=== PATIENT | female | born 1965 | race Asian ===

== ENCOUNTER 2021-04-14 20:41 | Emergency (ER) | payer BC ==
--- OUTSIDE RECORDS SUMMARY | 2021-04-14 20:48 | XMS REPORT | Continuity of Care Document ---
:1965 Author Organization [facility] t Address [address] [place] [address] Care Team Providers Name Role Phone Unavailable Unavailable Unavailable Problems Condition Condition Condition Status Onset Resolution Last Treating Co mments Source Name Details Category Date Date Treatment Clinician Date Hypertensi Hypertensi Problem Active [facility] - unspecifie unspecifie Me moria d type d type l [facility] Hypokalemi Hypokalemi Problem Active [facility] - [facility] Rash and Rash and Diagnosis Active [facility] nonspecifi nonspecifi [place] [facility] - c skin c skin Memoria eruption eruption l [facility] Thrombocyt Thrombocyt Diagnosis Active [facility] openia openia [facility] Elevated Elevated Problem Active [facility] serum serum [facility] - protein protein Memoria level level l [facility] Elevated Elevated Diagnosis Active [facility] liver liver [facility] - function function Memori a tests tests l [facility]ics Hyperchole Hyperchole Diagnosis Active [facility] sterolemia sterolemia [place] [facility] - Memoria l [facility] Hyperalbum Hyperalbum Problem Active [facility] inemia inemia [facility] - [facility] Abnormal Abnormal Diagnosis Active [facility] laboratory laboratory [place] [facility] - test test Memoria result result l [facility] Elevated Elevated Problem Active [facility] BP without BP without [place] [facility] - diagnosis diagnosis Dawson willa of of l hypertensi hypertensi Ou tpati on on ent Clinics History of History of Diagnosis Active [facility] hypokalemi hypokalemi [place] [facility] - a a [facility] l [facility] Allergies, Adverse Reactions, Alerts This patient has no known allergies or adverse reactions. Medications Ordered Filled Start Stop Current Ordering Indication Dosage Frequency Signature Comments Components Source Medication Medication Date Date Medication? Clinician (SIG) Name Name Alessandro Adamsonmethaso 2019-0 2020- No Miladys [address] [facility] ne ne 3- Millender applicatio Maricruz es - Dipropionat Dipropionat 00:00: 00:00 n to Memoria e e 00 :00 affected l area(s) [facility] HydrOXYzine HydrOXYzine Yes Miladys [address] [facility] HCl HCl 1-09 Millender as needed [facility] - 00:00: fot Memoria 00 itching l [facility] Micardis Micardis Yes Miladys [address] [facility] HCT HCT 6-21 Millender [facility] - 00:00: Memoria 00 l [facility] Keflex Keflex Yes [facility]adys 1 capsule [facility] Amlodipine Amlodipine Yes Miladys [address] [facility] Besylate Besylate Millender [place] kes - [facility] Triamcinolo Triamcinolo Yes Miladys [address] [facility] ne ne Millender applicatio Luke s - Acetonide Acetonide n to Memor ia affected l area [facility] Immunizations Ordered Filled Immunization Date Status Comments Sourc e Immunization Name Name Flucelvax - single Flucelvax - single 2019-12-[address] [facility] - dose syringe dose syringe 00:00:00 [facility] Procedures This patient has no known procedures. Encounters Start End Encounter Admission Attending Care Care Encounter Source Date/Time Date/Time Type Type Clinicians Facility Department ID 2020-05-25 2020-05-25 [facility] [id number] [facility] 10[facility]00:00 10:00:00 [facility] Medicine Medicine Outpati ent Clinics 2020-04-19 2020-04-19 [facility] [id number] [address] 13:25:00 13:25:00 [facility] Medicine Medicine Outpati ent Clinics 2020-01-25 2020-01-25 [facility] [id number] [address] 16:41:00 16:41:00 [facility] Medicine Outpati ent Clinics 2019-12-15 2019-12-15 [facility] [id number] [facility] 09:00:00 09:00:00 t [facility] Medicine Outpati ent Clinics 2019-12-14 2019-12-14 [facility] [id number] [address] 14:36:00 14:36:00 [facility] Medicine Outpati ent Clinics 2018-11-22 2018-11-22 [facility] [id number] 00:21:00 00:21:00 [facility] Medicine Outpati ent Clinics 2018-11-21 2018-11-21 [facility] [id number] [address] 09:45:00 09:45:00 [facility] Medicine Outpati ent Clinics 2018-10-22 2018-10-22 [facility] [id number] [address] 10:17:00 10:17:00 [facility] Medicine Outpati ent Clinics 2018-10-22 2018-10-22 [facility] [id number] [address] 09:00:00 09:00:00 [facility] Medicine Outpati ent Clinics Results This patient has no known results.
--- NOTE | 2021-04-14 21:26 | ER ---
Nurse's Notes [facility] Name: Loulou Treviño Age: 55 yrs Sex: Female : 1965 Arrival Date: 04/14/2021 Time: 20:45 Bed 14 Private MD: Diagnosis: Edema, unspecified Presentation: 04/14 21:01 Chief complaint: Patient states: pt has lost PCP and out of BP/fluid medication, bs2 bilateral leg swelling, +2 edema both legs, pulses gootd. Coronavirus screen: Client denies travel out of the [place] in the last 14 days. At this time, the client does not indicate any symptoms associated with coronavirus-19. Ebola Screen: Patient negative for fever greater than or equal to 101.5 degrees Fahrenheit, and additional compatible Ebola Virus Disease symptoms Patient denies exposure to infectious person. Patient denies travel to an Ebola-affected area in the 21 days before illness onset. No symptoms or risks identified at this time. Initial Sepsis Screen: Does the patient meet any 2 criteria? No. Patient's initial sepsis screen is negative. Does the patient have a suspected source of infection? No. Patient's initial sepsis screen is negative. Risk Assessment: Do you want to hurt yourself or someone else? Patient reports no desire to harm self or others. Onset of symptoms was April 14, 2021. 21:01 Method Of Arrival: Ambulatory bs2 21:01 Acuity: TOPHER 3 bs2 Triage Assessment: 21:03 General: Appears in no apparent distress. comfortable, well groomed, well developed, bs2 well nourished, Behavior is calm, cooperative, appropriate for age. Pain: Denies pain. 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 - Social history:: Smoking status: Patient denies any tobacco usage or history of. - Family history:: not pertinent. - Hospitalizations: : No recent hospitalization is reported. Screenin:06 Abuse screen: Denies threats or abuse. Denies injuries from another. Nutritional bs2 screening: No deficits noted. Tuberculosis screening: No symptoms or risk factors identified. Fall Risk None identified. Assessment: 21:16 General: Appears in no apparent distress. comfortable, well groomed, well developed, bs2 well nourished. Musculoskeletal: Circulation, motion, and sensation intact. Swelling present in lateral aspect of left calf, left lateral ankle, lateral aspect of left foot, left calf, left Achilles, left heel, medial aspect of left calf, left medial ankle, medial aspect of left foot, left [place]oughby, anterior aspect of left ankle and dorsum of left foot. Vital Signs: 21:01 BP 148 / 75; Pulse 95; Resp 16; Temp 97.6(O); Pulse Ox 97% ; Weight 65.77 kg (R); bs2 Height 5 ft. 3 in. (160.02 cm) (R); Pain 0/10; 21:53 BP 116 / 62; Pulse 88; Resp 16; Temp 97.8(O); Pulse Ox 97% ; Pain 0/10; bs2 21:01 Body Mass Index 25.69 (65.77 kg, 160.02 cm) bs2 ED Course: 20:45 Patient arrived in ED. ag3 20:52 Paul Hernandez MD is Attending Physician. rn 21:03 Triage completed. bs2 21:03 Arm band placed on left wrist. bs2 21:06 Patient has correct armband on for positive identification. Bed in low position. Call bs2 light in reach. 21:06 No provider procedures requiring assistance completed. bs2 21:15 Inserted saline lock: 20 gauge in right antecubital area, using aseptic technique. bs2 21:53 IV discontinued, intact, bleeding controlled, No redness/swelling at site. bs2 Administered Medications: 21:15 Drug: Lasix (furosemide) 40 mg Route: IVP; Site: right antecubital; bs2 Outcome: 21:25 Discharge ordered by . rn 21:53 Discharged to home ambulatory. bs2 21:53 Condition: improved 21:53 Discharge instructions given to patient, Instructed on discharge instructions, follow up and referral plans. medication usage, Demonstrated understanding of instructions, follow-up care, medications, Prescriptions given X 2. 21:54 Patient left the ED. bs2 Signatures: Paul Hernandez MD MD rn Blossom Armando ag3 Hollie Allred bs2
--- NOTE | 2021-04-14 21:26 | EDPHYS ---
Physician Documentation [facility] Name: Loulou Treviño Age: 55 yrs Sex: Female : 1965 Arrival Date: 04/14/2021 Time: 20:45 Bed 14 Private MD: ED Physician Paul Hernandez HPI: 04/14 21:17 This 55 yrs old Female presents to ER via Ambulatory with complaints of Leg rn Swelling. 21:17 Pt reports ran out of BP medication, is combination pill with diuretic, has been on it rn for a long time and has problems with edema, has been swelling since not taking medication, no sob, no increase in waist size. No fever. No open wounds. Unable to get in with a doctor until may. No known kidney problems.. Onset: The symptoms/episode began/occurred 2 week(s) ago. Severity of symptoms: At their worst the symptoms were moderate in the emergency department the symptoms are unchanged. The patient has experienced similar episodes in the past. The patient has not recently seen a physician. 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 - Social history:: Smoking status: Patient denies any tobacco usage or history of. - Family history:: not pertinent. - Hospitalizations: : No recent hospitalization is reported. ROS: 21:17 Constitutional: Negative for fever, chills, and weight loss, Eyes: Negative for injury, rn pain, redness, and discharge, Neck: Negative for injury, pain, and swelling, Cardiovascular: Negative for chest pain, palpitations Respiratory: Negative for shortness of breath, cough, wheezing, and pleuritic chest pain, Abdomen/GI: Negative for abdominal pain, nausea, vomiting, diarrhea, and constipation, MS/Extremity: Negative for injury and deformity, + swelling Skin: Negative for injury, rash, and discoloration, Neuro: Negative for headache, weakness, numbness, tingling, and seizure. Exam: 21:17 Constitutional: This is a well developed, well nourished patient who is awake, alert, rn and in no acute distress. Ambulatory to bathroom. Cardiovascular: Regular rate and rhythm. No pulse deficits. Respiratory: Speaking full sentences, unlabored. No increased work of breathing, no retractions or nasal flaring. Skin: Warm, dry with normal turgor. Normal color with no rashes, no lesions, and no evidence of cellulitis. MS/ Extremity: Pulses equal, no cyanosis. Neurovascular intact. Full, normal range of motion. Equal circumference. 2+ pitting edema bilateral lower ext. Vital Signs: 21:01 BP 148 / 75; Pulse 95; Resp 16; Temp 97.6(O); Pulse Ox 97% ; Weight 65.77 kg (R); bs2 Height 5 ft. 3 in. (160.02 cm) (R); Pain 0/10; 21:53 BP 116 / 62; Pulse 88; Resp 16; Temp 97.8(O); Pulse Ox 97% ; Pain 0/10; bs2 21:01 Body Mass Index 25.69 (65.77 kg, 160.02 cm) bs2 MDM: 20:52 Patient medically screened. rn 21:23 Differential Diagnosis edema, dependent edema, noncompliance with medication. Data rn reviewed: vital signs, nurses notes, and as a result, I will discharge patient. Counseling: I had a detailed discussion with the patient and/or guardian regarding: the historical points, exam findings, and any diagnostic results supporting the discharge/admit diagnosis, the need for outpatient follow up, to return to the emergency department if symptoms worsen or persist or if there are any questions or concerns that arise at home. Special discussion: I discussed with the patient/guardian in detail that at this point there is no indication for admission to the hospital. It is understood, however, that if the symptoms persist or worsen the patient needs to return immediately for re-evaluation. Based on the history and exam findings, there is no indication for further emergent testing or inpatient evaluation. I discussed with the patient/guardian the need to see the primary care provider for further evaluation of the symptoms. 04/14 21:00 Order name: IV Start; Complete Time: 21:15 rn Administered Medications: 21:15 Drug: Lasix (furosemide) 40 mg Route: IVP; Site: right antecubital; bs2 Disposition Summary: 04/14/21 21:25 Discharge Ordered Location: Home rn Problem: an ongoing problem rn Symptoms: have improved rn Condition: Stable rn Diagnosis - Edema, unspecified rn Followup: rn - With: Private Physician - When: As needed - Reason: Recheck today's complaints, Re-evaluation by your physician Discharge Instructions: - Discharge Summary Sheet rn - Edema rn - Hypertension, Adult rn Forms: - Medication Reconciliation Form rn - Thank You Letter rn - 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 Ambulatory to bathroom. rn
[2021-04-14] MEDS ORDERED: FUROSEMIDE 40 MG/4 ML VIAL ONE (21:30)
[2021-04-14 22:07] VITALS: O2SAT 97
[2021-04-14 22:09] VITALS: BP 116/62; TEMP 97.8
== END 2021-04-14 21:54 | disposition home or self-care (01) ==
LOC: ER 20:41
DX: R60.9 Edema, unspecified (principal); I10 Essential (primary) hypertension
CPT/HCPCS: 96374; 99283; J1940

== ENCOUNTER 2022-04-26 09:56 | Emergency (ER) | payer BC ==
[2022-04-26] MEDS ORDERED: NA CHLORIDE 0.9% 500 ML ONE ×2 (10:45→13:07)
[2022-04-26 11:58] LABS: Absolute Lymphocytes (CBC) 0.8 K/uL (0.7-4.9); Hematocrit 26.7 % (36.0-45.0); Lymphocytes % 8.4 % (15.3-44.8); MCV 98.3 fL (80-100); MPV 9.8 fL (7.6-11.3); RBC Red Blood Cell Count 2.72 M/uL (3.86-4.86)
[2022-04-26 12:00] LABS: Protime INR 2.29
[2022-04-26 12:11] LABS: Urine Blood 3+ (Negative); Urine Glucose Trace (Negative); Urine Protein 2+ (Negative); Urine pH 8.5 (5.0-7.0)
[2022-04-26 12:20] LABS: Albumin 1.6 g/dL (3.4-5.0); Protein, Total 6.5 g/dL (6.4-8.2)
[2022-04-26 12:22] LABS: Potassium 5.3 mmol/L (3.5-5.1)
[2022-04-26 12:24] LABS: Bilirubin Total 25.9 mg/dL (0.2-1.0)
--- NOTE | 2022-04-26 12:56 | RAD REPORT ---
EXAM DESCRIPTION: CT - Abdomen Pelvis Wo Contrast - 04/26/2022 12:45 pm CLINICAL HISTORY: Abdominal pain. LLQ abdominal pain COMPARISON: No comparisons TECHNIQUE: CT imaging of the abdomen and pelvis was performed without contrast. Solid organ, bowel a nd vascular assessment is limited due to lack of IV and oral contrast. All CT scans are performed using dose optimization technique as appropriate and may include automated exposure control or mA/KV adjustment according to patient size. FINDINGS: The lower lung jean baptiste are clear. The liver demonstrates heterogenous parenchymal appearance. The Spleen, pancreas, adrenal glands and kidneys are within normal limits for a limited non-contrast examination.Probable gallstone in the gal lbladder. There is moderate diffuse colon wall thickening noted. Mild ascites is present in the abdomen and pel vis. Sigmoid diverticulosis coli without diverticulitis. Normal appendix. Large calcified fibroids ar e present in the enlarged uterus. Mild lumbar degenerative changes. IMPRESSION: Moderate thickening of the colon wall is present diffusely compatible with colitis. Mild ascites is present. Probable cholelithiasis. Multiple large calcified fibroids in the uterus. A limited non-contrast examination was performed as detailed.
--- NOTE | 2022-04-26 13:51 | RAD REPORT ---
EXAM DESCRIPTION: US - Abdomen Exam Limited - 04/26/2022 1:42 pm CLINICAL HISTORY: EPIGASTRIC PAIN COMPARISON: Abdomen Pelvis Wo Contrast dated 04/26/2022 FINDINGS: The gallbladder demonstrates sludge dependently layering. Mild gallbladder wall thickening is seen with intramural edema present. The common bile duct is normal measuring 4 mm. The liver demonstrates no findings of intrahepatic biliary dilatation. IMPRESSION: Gallbladder sludge with wall thickening and edema present.
[2022-04-26] MEDS ORDERED: METRONIDAZOLE 500mg IVPB 500 MG/100 ML BAG IV ONE (14:22)
[2022-04-26] MEDS ORDERED: CEFTRIAXONE 1000 MG/VIAL ONE (14:22)
[2022-04-26] MEDS ORDERED: NA CHLORIDE 0.9% 100 ML ONE (14:22)
[2022-04-26] MEDS ORDERED: CEFEPIME 1 GM/VIAL ONE (14:23)
--- NOTE | 2022-04-26 14:35 | ER ---
Nurse's Notes [facility] Name: Loulou Treviño Age: 56 yrs Sex: Female : 1965 Arrival Date: 04/26/2022 Time: 09:58 Bed 4 Private MD: Stephanie Gautam Diagnosis: Hepatorenal failure Presentation: 04/26 10:06 Chief complaint: Patient states: is very weak and gets tired and SOB when she walks, iw friend states she looks jaundiced for past week , pt states her abd swelling up a couple days ago , stopped drinking maybe four weeks ago, was a daily drinker , would drink wine and liquor , pt has no history of liver issues at this point. Coronavirus screen: At this time, the client does not indicate any symptoms associated with coronavirus-19. Ebola Screen: Patient negative for fever greater than or equal to 101.5 degrees Fahrenheit, and additional compatible Ebola Virus Disease symptoms Patient denies exposure to infectious person. Patient denies travel to an Ebola-affected area in the 21 days before illness onset. No symptoms or risks identified at this time. Initial Sepsis Screen: Does the patient meet any 2 criteria? Mean Arterial Pressure (MAP) < 65. Does the patient have a suspected source of infection? No. Patient's initial sepsis screen is negative. Risk Assessment: Do you want to hurt yourself or someone else? Patient reports no desire to harm self or others. Onset of symptoms was April 19, 2022. 10:06 Method Of Arrival: Wheelchair iw 10:06 Acuity: TOPHER 2 iw Historical: - Allergies: 10:10 No Known Allergies; iw - Home Meds: 10:10 telmisrtan/HCTZ 80/25 MG daily for High Blood Pressure [Active]; iw - PMHx: 10:10 Hypertensive disorder; iw - PSHx: 10:10 Tumor removal stomach; iw - Immunization history:: Client reports receiving the 2nd dose of the Covid vaccine. - Social history:: Smoking status: Patient denies any tobacco usage or history of. Screenin:14 Abuse screen: Denies threats or abuse. Nutritional screening: No deficits noted. ll1 Tuberculosis screening: No symptoms or risk factors identified. Fall Risk IV access (20 points). Gait- Weak (10 pts.). Total Santos Fall Scale indicates Low Risk Score (25-44 pts). Fall prevention measures have been instituted. Side Rails Up X 2 Placed close to Nursing Station Frequent Obs/Assesments occuring Family Present and informed to notify staff if they need to leave bedside As available Patient and Family Educated on Fall Prevention Program and strategies. Assessment: 11:07 General: Appears in no apparent distress. Behavior is calm, cooperative. kr3 11:31 General: Behavior is. Pain: Complains of pain in abdomen Pain does not radiate. Pain kr3 currently is 7 out of 10 on a pain scale. Quality of pain is described as aching, Pain began suddenly. GI: Bowel sounds present X 4 quads. Abd is soft Abdomen is tender to palpation in left lower quadrant Reports lower abdominal pain. GI: EENT: Eyes jaundice. Derm: Skin is jaundiced, Decubitus located on sacrum. 12:35 Reassessment: No changes from previously documented assessment. Patient and/or family kr3 updated on plan of care and expected duration. Pain level reassessed. Reassessment:. 14:05 Reassessment: No changes from previously documented assessment. Patient and/or family kr3 updated on plan of care and expected duration. Pain level reassessed. 15:28 Reassessment: No changes from previously documented assessment. Patient and/or family kr3 updated on plan of care and expected duration. Pain level reassessed. 16:30 Reassessment: No changes from previously documented assessment. Patient and/or family ll1 updated on plan of care and expected duration. Pain level reassessed. 17:14 Reassessment: No changes from previously documented assessment. Patient and/or family ll1 updated on plan of care and expected duration. Pain level reassessed. Vital Signs: 10:06 BP 72 / 47; Pulse 77; Resp 16; Temp 97.0; Pulse Ox 92% on R/A; iw 10:19 BP 92 / 68; Pulse 73; Resp 16; Pulse Ox 100% on R/A; iw 11:30 BP 103 / 59; Pulse 72; Resp 16; Pulse Ox 100% on R/A; kr3 12:10 BP 107 / 59; Pulse 79; Resp 16; Pulse Ox 98% on R/A; kr3 12:10 BP 110 / 74; Pulse 78; Resp 16; Pulse Ox 99% on R/A; kr3 14:14 BP 110 / 77; Pulse 73; Resp 16; Temp 97.0(TE); Pulse Ox 100% on R/A; ll1 15:28 BP 110 / 68; Pulse 78; Resp 16; Pulse Ox 99% on R/A; kr3 17:20 BP 115 / 65; Pulse 67; Resp 16; Pulse Ox 100% on R/A; kr3 17:20 BP 111 / 69; Pulse 69; Resp 16; Pulse Ox 100% on R/A; kr3 ED Course: 09:58 Patient arrived in ED. am2 09:59 Stephanie Gautam FNP-C is Private Physician. am2 10:10 Triage completed. iw 10:11 Arm band placed on. iw 10:20 Stephanie Hicks, RN is Primary Nurse. brown 10:20 Gonzalo Chowdhury NP is PHCP. pm1 10:20 Manish Heath MD is Attending Physician. pm1 10:46 Kristin Horta, IMELDA is Primary Nurse. ll1 10:50 Inserted saline lock: 22 gauge in left antecubital area, using aseptic technique. Blood ll1 collected. 10:55 Placed in gown. Bed in low position. Call light in reach. Side rails up X 1. kr3 11:04 CBC with Diff Sent. kr3 11:04 CMP Sent. kr3 11:05 Lipase Sent. kr3 11:46 Lab(s) recollected, by me, sent to lab. jd3 12:46 Abdomen In Process Unspecified. EDMS 13:43 US Abdomen Limited In Process Unspecified. EDMS 14:48 initiated a transfer with Suzanne Castro Rn from the [facility]. eb 15:23 connected the manager logistic and hospitalist collection correspondent for [facility] with Gonzalo meneses for patient transfer consultation. 15:45 administrative approval given by Suzanne Castro Rn/ patient has been accepted to [facility] 15 tower bed 1538/ Dr. Blue has accepted the patient in transfer/ report to be called to [phone]. 16:33 BMP Sent. kr3 16:33 Blood Culture Adult (2) Sent. kr3 17:22 Inserted saline lock: 22 gauge in right antecubital area, using aseptic technique. kr3 17:22 No provider procedures requiring assistance completed. kr3 17:22 Urine Microscopic Only Sent. kr3 17:24 BMP Sent. kr3 17:24 Blood Culture Adult (2) Sent. kr3 17:26 Patient transferred, IV remains in place. 1 Administered Medications: 10:58 Drug: NS 0.9% 500 ml Route: IV; Rate: bolus; Site: left antecubital; kr3 15:02 Follow up: Response: No adverse reaction; IV Status: Completed infusion; IV Intake: kr3 500ml 13:05 Drug: NS 0.9% 500 ml Route: IV; Rate: bolus; Site: left antecubital; kr3 14:25 Follow up: Response: No adverse reaction; IV Status: Completed infusion; IV Intake: kr3 500ml 14:03 CANCELLED (Physician Discretion): Zosyn (piperacillin-tazobactam) 3.375 grams IVPB once pm1 over 60 mins; (mix in NS 100 mL) 14:23 Drug: Cefepime 1 grams Route: IVPB; Rate: 200 ml/hr; Infused Over: 30 mins; Site: left kr antecubital; 15:18 Follow up: Response: No adverse reaction; IV Status: Completed infusion; IV Intake: kr3 100ml 15:16 Drug: NS 0.9% 1000 ml Route: IV; Rate: 100 ml/hr; Site: left antecubital; kr3 17:26 Follow up: IV Status: Infusion continued upon transfer 1 15:18 Drug: Flagyl (metroNIDAZOLE) 500 mg Volume: 100 ml; Route: IVPB; Rate: 200 ml/hr; kr3 Infused Over: 30 mins; Site: left antecubital; 17:06 Follow up: Response: No adverse reaction; IV Status: Completed infusion; IV Intake: ll1 100ml 17:05 Drug: Octreotide 50 mcg Route: IV; Rate: bolus; Site: left antecubital; 1 17:06 Follow up: Response: No adverse reaction; IV Status: Completed infusion; IV Intake: ll1 0.1ml 17:06 Drug: Albumin 25 grams Volume: 100 ml; Route: IVPB; Site: right antecubital; ll1 17:26 Follow up: IV Status: Completed infusion; Infusion continued upon transfer [facility] Medication: 17:15 VIS not applicable for this client. ll1 Intake: 14:25 IV: 500ml; Total: 500ml. kr3 15:02 IV: 500ml; Total: 1000ml. kr3 15:18 IV: 100ml; Total: 1100ml. kr3 17:06 IV: 100ml; Total: 1200ml. ll1 17:06 IV: 0ml; Total: 1200ml. ll1 Outcome: 14:35 ER care complete, transfer ordered by MD. pm1 17:25 Transferred by ground EMS to [facility], Transfer form completed. ll1 X-rays sent w/ patient. 17:25 Condition: stable 17:25 Instructed on the need for transfer. 17:28 Patient left the ED. ll1 Signatures: Dispatcher [employer] EDMS Barbara Bee RN Gonzalo Wise NP [employer] pm1 Rosalia Guzmán amEmmanuel Doll RN RN jd3 Carolyn Koenig Lynsay, RN RN ll1 Stephanie Hicks RN RN ha Reid, Kelley, RN RN kr3 Corrections: (The following items were deleted from the chart) 11:07 11:06 Placed in gown. Bed in low position. Call light in reach. Side rails up X 1. kr3 kr3
--- NOTE | 2022-04-26 14:35 | EDPHYS ---
Physician Documentation [facility] Name: Loulou Treviño Age: 56 yrs Sex: Female : 1965 Arrival Date: 04/26/2022 Time: 09:58 Bed 4 Private MD: Stephanie Gautam ED Physician Manish Heath HPI: 04/26 10:36 This 56 yrs old Female presents to ER via Wheelchair with complaints of General pm1 Weakness, Abdominal Distention. 10:36 The patient presents to the emergency department with weakness of the entire body, pm1 generalized weakness. 10:36 Onset: The symptoms/episode began/occurred 2 week(s) ago. pm1 10:36 Associated signs and symptoms: Pertinent positives: LLQ abdominal pain, Pertinent pm1 negatives: chest pain, shortness of breath. Severity of symptoms: in the emergency department the symptoms are worse. Patient's baseline: Neuro: alert and fully oriented, Motor: no deficits, Ambulation: walks without assistance. Current symptoms: Currently, the patient is not experiencing any symptoms. The patient has not experienced similar symptoms in the past. The patient has been recently seen by a physician: with similar presenting complaints, and apparently given a diagnosis of URI, was given a prescription for antibiotics, azithromycin and tessalon perles by PCP. 56-year-old female presents to the ER with complaints of jaundice, generalized weakness and abdominal distention for 2 weeks. Patient with a history of alcoholism. Daily drinker of vodka approximately 1 quart per day for many years. Patient stopped roughly 4 weeks ago, but has had 1 drink since then. 1 glass of wine yesterday. Patient additionally complaining of shortness of breath with exertion for the same duration of 2 weeks. Negative for nausea and vomiting and diarrhea. Patient with decreased p.o. intake of solid food, but drinking fluids. Positive for soft stools. 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 - Social history:: Smoking status: Patient denies any tobacco usage or history of. ROS: 10:36 Cardiovascular: Negative for chest pain, palpitations, and edema. pm1 10:36 Back: Negative for injury and pain, : Negative for injury, bleeding, discharge, and swelling, MS/Extremity: Negative for injury and deformity, Skin: Negative for injury, rash, and discoloration. 10:36 Constitutional: Positive for poor PO intake, Negative for fever. 10:36 Eyes: Positive for Icterus. 10:36 Respiratory: Positive for shortness of breath, on exertion. Negative for cough. 10:36 Abdomen/GI: Positive for abdominal pain, of the left lower quadrant, Abdominal distention, Negative for nausea, vomiting, and diarrhea. 10:36 Neuro: Positive for Generalized weakness, Negative for headache, numbness, tingling. 10:36 All other systems are negative. Exam: 10:36 Head/Face: Normocephalic, atraumatic. pm1 10:36 Back: No spinal tenderness. No costovertebral tenderness. Full range of motion. 10:36 Constitutional: The patient appears alert, awake, comfortable, non-diaphoretic, well developed, obviously ill. 10:36 Eyes: Periorbital structures: no acute changes, Pupils: no acute changes, Extraocular movements: no acute changes, Sclera: icterus, is present. 10:36 ENT: Exam is negative for acute changes, Mouth: Lips: dry, Oral mucosa: pink and intact, dry. 10:36 Cardiovascular: Exam negative for acute changes, Rate: normal, Rhythm: regular, Pulses: no pulse deficits are appreciated, Heart sounds: normal, normal S1and S2. 10:36 Respiratory: Exam negative for acute changes, the patient does not display signs of respiratory distress, Respirations: no acute changes, Breath sounds: are clear throughout. 10:36 Abdomen/GI: Inspection: distension, that is mild, Palpation: soft, in all quadrants, mild abdominal tenderness, in the left lower quadrant. 10:36 Skin: Appearance: normal except for affected area, Color: jaundiced. 10:36 Neuro: Exam negative for acute changes, Orientation: is normal, Mentation: is normal, Motor: is normal, moves all fours. Vital Signs: 10:06 BP 72 / 47; Pulse 77; Resp 16; Temp 97.0; Pulse Ox 92% on R/A; iw 10:19 BP 92 / 68; Pulse 73; Resp 16; Pulse Ox 100% on R/A; iw 11:30 BP 103 / 59; Pulse 72; Resp 16; Pulse Ox 100% on R/A; kr3 12:10 BP 107 / 59; Pulse 79; Resp 16; Pulse Ox 98% on R/A; kr3 12:10 BP 110 / 74; Pulse 78; Resp 16; Pulse Ox 99% on R/A; kr3 14:14 BP 110 / 77; Pulse 73; Resp 16; Temp 97.0(TE); Pulse Ox 100% on R/A; ll1 15:28 BP 110 / 68; Pulse 78; Resp 16; Pulse Ox 99% on R/A; kr3 17:20 BP 115 / 65; Pulse 67; Resp 16; Pulse Ox 100% on R/A; kr3 17:20 BP 111 / 69; Pulse 69; Resp 16; Pulse Ox 100% on R/A; kr3 MDM: 10:20 Patient medically screened. pm1 14:10 Data reviewed: vital signs. Data interpreted: Pulse oximetry: on room air is 97 %. pm1 Interpretation: normal. 14:32 Counseling: I had a detailed discussion with the patient and/or guardian regarding: the pm1 historical points, exam findings, and any diagnostic results supporting the discharge/admit diagnosis, lab results, radiology results, the need to transfer to another facility, for higher level of care. 15:14 ED course: Meld score 49. pm1 15:36 Physician consultation: And Hospitalist [facility] [employer] Administrator regarding regarding pm1 transfer, patient's condition, and will see patient would like medications started, Blood culture, Repeat BMP, octreotide, and albumin 25 gram Q8. 04/26 10:35 Order name: CBC with Diff; Complete Time: 14:54 pm1 04/26 10:35 Order name: CMP; Complete Time: 12:30 pm1 04/26 10:35 Order name: Lipase; Complete Time: 12:30 pm1 04/26 10:35 Order name: PT-INR; Complete Time: 12:05 pm1 04/26 10:35 Order name: Ptt, Activated; Complete Time: 12:05 pm1 04/26 10:35 Order name: COVID-19 SARS RT PCR (Document "Date of Onset" if Symptomatic); Complete pm1 Time: 12:17 04/26 12:04 Order name: Alcohol Serum/Plasma; Complete Time: 12:30 EDMS 04/26 12:11 Order name: Urine Dipstick-Ancillary; Complete Time: 12:17 EDMS 04/26 12:43 Order name: Abdomen ; Complete Time: 13:09 EDMS 04/26 14:46 Order name: CBC Smear Scan; Complete Time: 14:54 EDMS 04/26 15:30 Order name: Blood Culture Adult (2) pm1 04/26 15:33 Order name: BMP pm1 04/26 16:00 Order name: Urine Microscopic Only pm1 04/26 10:35 Order name: IV Saline Lock; Complete Time: 10:36 pm1 04/26 10:35 Order name: Labs collected and sent; Complete Time: 10:36 pm1 04/26 10:35 Order name: Urine Dipstick-Ancillary (obtain specimen); Complete Time: 12:11 pm1 04/26 11:21 Order name: Labs - recollect needed: recollect all the blood per kaushal; Complete Time: eb 11:46 04/26 12:31 Order name: EKG; Complete Time: 12:32 pm1 04/26 12:31 Order name: EKG - Nurse/Tech; Complete Time: 14:10 pm1 04/26 13:11 Order name: US Abdomen Limited; Complete Time: 13:57 pm1 EC:59 Rate is 69 beats/min. Rhythm is regular, Normal Sinus Rhythm with Occasional PVCs. QRS pm1 [place] is Normal. QRS interval is normal. No Q waves. Clinical impression: Abnormal EKG without significant change. Administered Medications: 10:58 Drug: NS 0.9% 500 ml Route: IV; Rate: bolus; Site: left antecubital; kr3 15:02 Follow up: Response: No adverse reaction; IV Status: Completed infusion; IV Intake: kr3 500ml 13:05 Drug: NS 0.9% 500 ml Route: IV; Rate: bolus; Site: left antecubital; kr3 14:25 Follow up: Response: No adverse reaction; IV Status: Completed infusion; IV Intake: kr3 500ml 14:03 CANCELLED (Physician Discretion): Zosyn (piperacillin-tazobactam) 3.375 grams IVPB once pm1 over 60 mins; (mix in NS 100 mL) 14:23 Drug: Cefepime 1 grams Route: IVPB; Rate: 200 ml/hr; Infused Over: 30 mins; Site: left kr3 antecubital; 15:18 Follow up: Response: No adverse reaction; IV Status: Completed infusion; IV Intake: kr3 100ml 15:16 Drug: NS 0.9% 1000 ml Route: IV; Rate: 100 ml/hr; Site: left antecubital; kr3 17:26 Follow up: IV Status: Infusion continued upon transfer ll1 15:18 Drug: Flagyl (metroNIDAZOLE) 500 mg Volume: 100 ml; Route: IVPB; Rate: 200 ml/hr; kr3 Infused Over: 30 mins; Site: left antecubital; 17:06 Follow up: Response: No adverse reaction; IV Status: Completed infusion; IV Intake: ll1 100ml 17:05 Drug: Octreotide 50 mcg Route: IV; Rate: bolus; Site: left antecubital; 1 17:06 Follow up: Response: No adverse reaction; IV Status: Completed infusion; IV Intake: ll1 0.1ml 17:06 Drug: Albumin 25 grams Volume: 100 ml; Route: IVPB; Site: right antecubital; ll1 17:26 Follow up: IV Status: Completed infusion; Infusion continued upon transfer ll1 Disposition: 18:03 Attestation: The patient's history, exam findings, diagnostics, and a summary of any [facility] interventions or procedures was reviewed in detail with Gonzalo Chowdhury DIRECTOR OF HOME CARE HOSPICE. Disposition Summary: 04/26/22 14:35 Transfer Ordered Transfer Location: [facility] pm1 Reason: Higher level of care pm1 Condition: Stable pm1 Problem: new pm1 Symptoms: have improved pm1 Accepting Physician: Dr. Blue(04/26/22 17:28) ll1 Diagnosis - Hepatorenal failure pm1 Forms: - Medication Reconciliation Form pm1 - SBAR form pm1 Critical care time excluding procedures: 18:26 Critical care time: Bedside Care: 10 minutes, Consultation: 15 minutes, Family pm1 Intervention: 5 minutes. Total time: 30 minutes Signatures: Dispatcher [employer] Barbara Martinez RN RN Gonzalo Chowdhury NP DIRECTOR OF HOME CARE HOSPICE pm1 Carolyn Koenig Lynsay, RN RN ll1 Manish Heath MD MD [id number] Kristin Horta RN RN kr3 Corrections: (The following items were deleted from the chart) 12:43 10:35 Abdomen Pelvis W Con+CT.RAD.BRZ ordered. EDMS EDMS 14:03 14:01 Zosyn (piperacillin-tazobactam) 3.375 grams IVPB once over 60 mins; (mix in NS pm1 100 mL) ordered. pm1 17:06 14:35 pm1 eb 17: 17:06 Dr. Mirza meneses 1
[2022-04-26 14:46] LABS: Blood Morphology Comment NOT SEEN (NOT SEEN); Platelet Estimate DECR; White Blood Cell Scan OK (OK)
[2022-04-26] MEDS ORDERED: NA CHLORIDE 0.9% 1,000 ML ONE (15:13)
[2022-04-26] MEDS ORDERED: ALBUMIN HUMAN 25% 100 ML IV ONE (16:45)
[2022-04-26] MEDS ORDERED: OCTREOTIDE ACETATE 500 MCG/ML ONE (16:45)
[2022-04-26 17:37] VITALS: TEMP 97
[2022-04-26 17:48] VITALS: BP 111/69; O2SAT 100
[2022-04-26 17:58] LABS: Urine Bacteria Loaded /HPF (<20); Urine Mucus 3+ /HPF (None Seen); Urine RBC <5 /HPF (None Seen)
[2022-04-26 18:27] LABS: Potassium 2.7 mmol/L (3.5-5.1)
--- NOTE | 2022-04-28 09:06 | EKG ---
Test Date: 2022-04-26 Test Time: 14:08:57 [employer] Supervisor: JAMES MEASUREMENT RESULTS: Intervals: Rate: 69 [place]: 164 QRSD: 82 QT: 420 QTc: 450 [place]: P: 70 [place]: 164 QRS: 62 T: 235 INTERPRETIVE STATEMENTS: Sinus rhythm with frequent premature ventricular complexes ST & T wave abnormality, consider inferior ischemia ST & T wave abnormality, consider anterior ischemia Abnormal ECG Compared to ECG 10/08/2021 11:36:49 Ventricular premature complex(es) now present ST (T wave) deviation now present Possible ischemia now present T-wave abnormality no longer present Electronically Signed On 04-28-22 09:03:15 CDT by Oneil Hickey
== END 2022-04-26 17:28 | disposition short-term general hospital (02) ==
LOC: ER 09:56
DX: K76.7 Hepatorenal syndrome (principal); R10.32 Left lower quadrant pain; F10.20 Alcohol dependence, uncomplicated; I10 Essential (primary) hypertension; Z20.822 Contact with and (suspected) exposure to COVID-19
CPT/HCPCS: 93005; 87040; 87088; 85025; 87086; 80048; 36415; 80320; 85610; 85730; 83690; 80053; 74176; 76705; 99285; U0003; J2354; P9047; J7040 ×2; J7030; J3490; J0692; 81003; 81015

== ENCOUNTER 2022-10-15 21:39 | Emergency (ER) | payer BC ==
--- OUTSIDE RECORDS SUMMARY | 2022-10-15 22:03 | XMS REPORT | Continuity of Care Document ---
:1965 Author Organization [facility] t Address [address] [place] [address] Care Team Providers Name Role Phone CHEY SHANKAR Primary Care Physician Unavailable Chey Shankar Attending Clinician Unavailable Won Cifuentes Attending Clinician Unavailable Miladys Glasgow Attending Clinician Unavailable Nara Gayle Attending Clinician Unavailable Kaylie Michael RN Attending Clinician Unavailable Mariana Aguilar RN Attending Clinician Unavailable Junior Hendricks MA Attending Clinician Unavailable Deonte SEGURA, Christiano Attending Clinician Unavailable Dino Spence MD Attending Clinician Carlyle Wu NP Attending Clinician [phone] DINO SPENCE Attending Clinician Unavailable Va Allred Attending Clinician Unavailable Magdalena Brady Attending Clinician Unavailable Carolyn Priest Attending Clinician Unavailable Nolvia Kay RN Attending Clinician Unavailable Velia George RN Attending Clinician Unavailable Bryan Aquino LCSW Attending Clinician Unavailable Ludwig Summers MD Attending Clinician [phone] Crow Kelly MD, Aba Attending Clinician [phone] LUDWIG SUMMERS Attending Clinician Unavailable BREN MIRADNA Attending Clinician Unavailable Anup Desai Attending Clinician ANUP DESAI Attending Clinician Unavailable Dino Morton Attending Clinician [place] ABA Attending Clinician Unavailable Jeison SEGURA, Brady Attending Clinician Unavailable Zhane SEGURA, Stephanie Lawson Attending Clinician Unavailable 1, [facility] Room Attending Clinician Unavailable Pavel LOGAN, Candy Mccabe Attending Clinician [phone] CANDY INMAN Attending Clinician Unavailable Stephanie Nguyen MA Attending Clinician Unavailable Emily OCHOA, Yeison Parks Attending Clinician YEISON DIAZ Attending Clinician Unavailable Matilde OCHOA, Karissa Randle Attending Clinician Amos Webber Attending Clinician Unavailable Albert OCHOA, Keith Casillas Attending Clinician [phone] Ayde Davila MD Attending Clinician Lee OCHOA, Stephanie Jean Baptiste Attending Clinician [phone] Lorenzo Paige MD Attending Clinician Colleen OCHOA, Evelio Perea Attending Clinician Jake OCHOA, Annamarie Attending Clinician Cintia Sanchez MD Attending Clinician [phone] Goldy Buck MD Attending Clinician Reny Phelan Attending Clinician Unavailable Kati Gallardo MD Attending Clinician Tomy Casper MD Attending Clinician Curt Karimi MD Attending Clinician Unavailable Bill SEGURA, Jocelin Quintana Attending Clinician Unavailable Ralph OCHOA, Aidan Saldivar Attending Clinician Deann OCHOA, Octavio Colin Attending Clinician Flako Wallace Attending Clinician Shanti Agee Attending Clinician Unavailable Adalid OCHOA, Rock Jenkins Attending Clinician Carlito OCHOA, Deanna Randle Attending Clinician Emiliana OCHOA, Cecilia Nazario Attending Clinician [phone] Lacie OCHOA, Leandro Attending Clinician Unavailable Delilah Rooney Attending Clinician Unavailable Chrissy SEGURA, Davin Ayala Attending Clinician Unavailable Olga Edwards Attending Clinician Yu ARELLANO, Magdalena Pink Attending Clinician Nakul OCHOA, Oneil Falcon Attending Clinician [phone] LUDWIG SUMMERS Admitting Clinician Unavailable YEISON DIAZ Admitting Clinician Unavailable DINO SPENCE Admitting Clinician Unavailable ANNAMARIE HERNANDEZ Admitting Clinician Unavailable Payers Payer Name Policy Type Policy Number Effective Date Expiration Date Feliz kunz [employer] 6 [id number] 2020 [facility] [employer] of 00:00:00 - [facility] Medical Center Problems Condition Condition Condition Status Onset Resolution Last Treating Co mments Source Name Details Category Date Date Treatment Clinician Date Acute Acute Disease Active 2021-[address] pulmonary pulmonary 0-22 Assessusha [facility] embolism, embolism, 00:00: t & Plan: M edical unspecifie unspecifie 00 [facility] d d g of this pulmonary pulmonary note embolism embolism might be type, type, different unspecifie unspecifie from the d whether d whether original. acute cor acute cor She pulmonale pulmonale denies present present shortness of breath. Continue follow up with hematolog y. Continue apixaban as prescribe d. Incisional Incisional Disease Active Last [facility] hernia hernia 07-12 Assessmen Justin following following 00:00: t & Plan: M edical transplant transplant 00 [facility] g of this note might be different from the original. There is concern for incisiona l hernia to the right side of her chevron incision. We will obtain CT without contrast for further evaluatio n. Weakness Weakness Disease Active Last [facility] 00:00: t & Plan: Medical [facility] g of this note might be different from the original. Continue to drink supplemen adarsh shakes- at least 3/day and increase physical activity level as tolerated . She is seen today using a walker in clinic. Immunosupp Immunosupp Disease Active Last [facility] ression ression 8-25 [facility] 00:00: t & Plan: Medical [facility] g of this note might be different from the original. She denies headaches or tremors with her immunosup pression. We will adjust her dose according to her levels. DOMINIQUE (acute DOMINIQUE (acute Disease Active Last [facility]) 00:00: t & Plan: Medic al [facility] g of this note might be different from the original. She remains on HD at this time. She is making increasin g amounts of urine. [id number] Elevated Problem Active Comm on liver Spirit function - [facility] tests [facility] [id number] Elevated Problem Active Commo n serum Spirit protein - [facility] level [facility] [id number] History of Problem Active Co mmon hypokalemi [facility] [id number] Intrinsic Problem Active Comm on eczema [facility] [id number] Hyperalbum Problem Active Co mmon inemia [facility] [id number] Hyperchole Problem Active Com mon sterolemia [facility] [id number] Thrombocyt Problem Active Co mmon openia [facility] [id number] End stage Problem Active Comm on renal Spirit disease [facility] [id number] Advanced Problem Active Comm on cirrhosis [facility] of liver [facility] [id number] Chronic Problem Active Comm on fatigue, Spirit unspecifie - [facility] d [facility] Acute Acute Disease Active [facility] renal renal [facility] failure on failure on Me dical dialysis dialysis Center Cirrhosis Cirrhosis Disease Active [facility] of liver [facility] with with Medical ascites, ascites, Center unspecifie unspecifie d hepatic d hepatic cirrhosis cirrhosis type type s/p OLT s/p OLT Disease Active Last [facility] (05/16, (05/16, Dr. [place]) t & Plan: [facility] g of this note might be different from the original. She is s/p OLT in May 2022. She is doing well with no evidence of recurrent disease. Acute Acute Disease Active [facility] St respirator respirator [place] kes y y Medical insufficie insufficie Ce nter ncy ncy Primary Primary Disease Active Last [facility] hypertensi hypertensi [place] on on t & Plan: [facility] g of this note might be different from the original. Blood pressures are stable on current therapy. Acute Acute Disease Active [facility] St blood loss blood loss [place] [facility] anemia anemia [facility] Coagulopat Coagulopat Disease Active [facility] ESRD on ESRD on Disease Active Last [facility] St hemodialys hemodialys [place] is is t & Plan: [facility] g of this note might be different from the original. End stage renal- still requires dialysis 3 times per week. She states that she has been urinating 2-3 times per day. TDC still clean, dry and intact. Allergies, Adverse Reactions, Alerts Allergy Allergy Status Severity Reaction(s) Onset Inactive Treating Comm ents Source Name Type Date Date Clinician NO KNOWN Allergy Active [facility] Family History Family Member Diagnosis Comments Start Date Stop Date Source Natural father Alcohol abuse [facility] Natural father Hypertension [facility] Maternal aunt Cancer [facility] Maternal grandmother Arthritis [facility] Maternal uncle Cancer [facility] Natural mother Hypertension [facility] Social History Social Habit Start Date Stop Date Quantity Comments Source History of [facility] - Tobacco Use [facility] Alcohol intake 2022-08-30 2022-08-30 [facility] 00:00:00 of alcohol [facility] (finding) Tobacco use and 2022-04-26 2022-04-26 Never used [facility] exposure 00:00:00 00:00:00 Medical Center Sex [birth year] [facility] 00:00:00 00:00:00 Medical Center Smoking Status Start Date Stop Date Source Never smoker [facility] Medications Ordered Filled Start Stop Current Ordering Indication Dosage Frequency Signature Comments Components Source Medication Medication Date Date Medication? Clinician (SIG) Name Name sulfamethox 2021-10 Yes 160mg{t Q.[id number] Take [address] azole-trime 2-16 rimetho [id number] tablet [facility] thoprim 00:00: prim} 3W (160 mg of Med ical (BACTRIM 00 trimethopr Cente r DS) 800-160 im total) mg per by mouth 3 tablet (three) times a week I. furosemide 2021-10- No 40mg QD Take [address] (LASIX) 40 2-15 12-15 by mouth Luke s MG tablet 09:03: 00:00 daily . Medi álvaro 24 :00 Center pantoprazol 2021-10 Yes 40mg QD Take [address] [facility] e 2-15 by mouth [facility]ukes (PROTONIX) 09:02: daily. Medic al 40 MG 49 Center tablet magnesium 2021-10 Yes 400mg Q.5D Take [address] oxide 2-15 mg by [facility]ukes (MAG-OX) 09:02: mouth 2 Medica l 400 mg 49 (two) Center (241.3 mg times magnesium) daily. tablet midodrine 2021-10 Yes 10mg Q.[id number] Take [address] (PROAMATINE 2-15 [id number] by mouth 3 [facility]ukes ) 10 MG 09:02: 3W (three) Medical tablet 48 times a Center week I. predniSONE 2021-10 Yes 12.5mg QD Take 2.[address] (DELTASONE) 2-12 tablets [facility] 5 MG tablet 00:00: (12.5 mg Me dical 00 total) by Center mouth daily. apixaban 2021-10- Yes 5mg Q.5D Take [address] (ELIQUIS) 5 1-23 11-23 tablet (5 [place] kes mg Tab 00:00: 23:59 mg total) Medic al tablet 00 :00 by mouth 2 Center (two) times daily. predniSONE 2021-10 No 15mg QD Take [address] (DELTASONE) 1-14 12-12 tablets Luke s 5 MG tablet 00:00: 00:00 (15 mg Med ical 00 :00 total) by Center mouth daily. valGANciclo 2021-10 No 450mg Q.[id number] Take [address] vir 0-24 10-24 [id number] mg by [facility] (VALCYTE) 11:50: 00:00 3W mouth 3 Medi álvaro 450 mg 16 :00 (three) Center tablet times a week MON/WED/FR I. tacrolimus 2021-10 Yes 6mg Q.5D Take 6 [facility] (PROGRAF) 1 0-24 capsules Luke s MG capsule 00:00: (6 mg Medica l 00 total) by Center mouth 2 (two) times daily. sulfamethox 2021-10 No 160mg{t Q.5D Take [address] azole-trime 0-24 12-15 rimetho tablet [place] kes thoprim 00:00: 00:00 prim} (160 mg of Me dical (BACTRIM 00 :00 trimethopr Cente r DS) 800-160 im total) mg per by mouth 2 tablet (two) times daily. nystatin 2021-10 No [id number] Q.25D Take [address] (MYCOSTATIN 0-24 12-15 (500,000 [place] es ) 100,000 00:00: 00:00 Units Medica l unit/mL 00 :00 total) by Center suspension mouth 4 (four) times daily. apixaban 2021-10 No 5mg Q.5D Take [address] (ELIQUIS) 5 0-24 11-23 tablet (5 [place] kes mg Tab 00:00: 00:00 mg total) Medic al tablet 00 :00 by mouth 2 Center (two) times daily Take 10 mg bid x 3 days. Then 5 mg bid.. predniSONE 2021-10 No 17.5mg QD Take 3.[address] (DELTASONE) 0-24 11-14 tablets Luke s 5 MG tablet 00:00: 00:00 (17.5 mg M edical 00 :00 total) by Center mouth daily. acetaminoph 2021-10 No 1{tbl} Take [address] en-codeine 0-24 11-03 tablet by Mar[place] es (Tylenol-Co 00:00: 23:59 mouth Medi álvaro deine #3) 00 :00 every 6 Center 300-30 mg (six) per tablet hours as needed for up to 10 days. Max Daily Amount: 4 tablets tacrolimus 2021- No 7mg Q.5D Take [address] (PROGRAF) 1 07-12 by mouth 2 L ukes MG capsule 09:07: 00:00 (two) Medic al 52 :00 times Center daily. tacrolimus 2021-0 2021- No 7mg Q.5D Take [address] (PROGRAF) 07-12 by mouth 2 L ukes MG capsule 09:07: 00:00 (two) Medic al 52 :00 times Center daily. pantoprazol Yes 40mg QD Take [address] [facility] e 07-12 by mouth [facility] (PROTONIX) 09:06: daily. Medic al 40 MG 34 Center tablet furosemide Yes 40mg QD Take [address] (LASIX) 40 07-12 by mouth [facility] MG tablet 09:06: daily . Medic al 34 Center valGANciclo Yes 450mg Q.[id number] Take [address] vir 07-12 [id number] mg by [facility] (VALCYTE) 09:06: 3W mouth 3 Medic al 450 mg 34 (three) Center tablet times a week SAT/SAT/ I. magnesium Yes 400mg Q.5D Take [address] oxide - mg by [facility]ukes (MAG-OX) 09:06: mouth 2 Medica l 400 mg 34 (two) Center (241.3 mg times magnesium) daily. tablet tacrolimus Yes Take 6mg [facility] (PROGRAF) 07-12 in the AM [place] [facility] MG capsule 00:00: and 7mg in M edical 00 the PM.. Center tacrolimus 2021- No Take 6mg [facility] (PROGRAF) 1 07-12 10-24 in the AM [place] k[facility] MG capsule 00:00: 00:00 and 7mg in Medical 00 :00 the PM.. Center sodium 2021-2021- No 250mg Q.25D Take [address] phosphates- 07-05 tablet [facility] potassium 00:00: 23:59 (250 mg Medi álvaro phosphate 00 :00 total) by Eli quintana (K-PHOS mouth 4 NEUTRAL) (four) 250 mg Tab times tablet daily for 3 days. sodium 2021- No 250mg Q.25D Take [address] phosphates- 07-05- tablet [facility] potassium 00:00: 23:59 (250 mg Medi álvaro phosphate 00 :00 total) by Eli quintana (K-PHOS mouth 4 NEUTRAL) (four) 250 mg Tab times tablet daily for 3 days. predniSONE Yes 17.5mg QD Take 3.[address] (DELTASONE) - tablets [facility] 5 MG tablet 00:00: (17.5 mg Me dical 00 total) by Center mouth daily. predniSONE 2021- No 17.5mg QD Take 3.[address] (DELTASONE) 06-21 10-24 tablets Luke s 5 MG tablet 00:00: 00:00 (17.5 mg M edical 00 :00 total) by Center mouth daily. linezolid 2021- No 600mg Q.5D Take [address] (ZYVOX) 600 06-15 tablet [facility] mg tablet 00:00: 23:59 (600 mg Medi álvaro 00 :00 total) by Center mouth 2 (two) times daily for 10 days. linezolid 2021- No 600mg Q.5D Take [address] (ZYVOX) 600 06-15- tablet [facility] mg tablet 00:00: 23:59 (600 mg Medi álvaro 00 :00 total) by Center mouth 2 (two) times daily for 10 days. furosemide 2021- No 40mg Q.5D Take [address] [facility] (Lasix) 40 06-14 tablet (40 [place] kes MG tablet 00:00: 00:00 mg total) Me dical 00 :00 by mouth 2 Center (two) times daily. furosemide 2021-2021- No 40mg Q.5D Take [address] (Lasix) 40 06-14- tablet (40 [place] kes MG tablet 00:00: 00:00 mg total) Me dical 00 :00 by mouth 2 Center (two) times daily. predniSONE 2021- No 20mg QD Take [address] (DELTASONE) 06-05- tablets Luke s 5 MG tablet 00:00: 00:00 (20 mg Med ical 00 :00 total) by Center mouth daily. predniSONE 2021- No 20mg QD Take [address] (DELTASONE) 06-05 tablets Luke s 5 MG tablet 00:00: 00:00 (20 mg Med ical 00 :00 total) by Center mouth daily. nystatin Yes [id number] Q.25D Take [address] (MYCOSTATIN 06-04 (500,000 Luke s ) 100,000 00:00: Units Medical unit/mL 00 total) by Center suspension mouth 4 (four) times daily. insulin Yes Before [facility] aspart 06-04 [id number] [facility] U-100 00:00: 00 2 Medical (NovoLOG) 00 -3 Cent er 100 unit/mL 50 4 injection -2 00 6 [id number] 50 7 units> 351 8 units. insulin Yes Before [facility] aspart 8-22 [id number] [facility] U-100 00:00: 00 2 Medical (NovoLOG) 00 [id number] Cent er 100 unit/mL 50 4 injection -9 00 6 [id number] 50 7 units> 351 8 units. calcium 2022- No 1{tbl} Take 1 [facility] carbonate-v 06-04 tablet by [place] kes itamin D3 00:00: 23:59 mouth 2 Medi álvaro (OSCAL-D) 00 :00 (two) Center 500 times mg(1,250mg) daily with -200 unit breakfast per tablet and dinner. ursodioL 2022- No 300mg Q.5D Take 1 [facility] (ACTIGALL) 06-04 capsule [facility] 300 mg 00:00: 23:59 (300 mg Medical capsule 00 :00 total) by Center mouth 2 (two) times daily. calcium 2022- No 1{tbl} Take 1 [facility] carbonate-v 06-04 tablet by [place] kes itamin D3 00:00: 23:59 mouth 2 Medi álvaro (OSCAL-D) 00 :00 (two) Center 500 times mg(1,250mg) daily with -200 unit breakfast per tablet and dinner. ursodioL 2022- No 300mg Q.5D Take 1 [facility] (ACTIGALL) 06-04 capsule [facility] 300 mg 00:00: 23:59 (300 mg Medical capsule 00 :00 total) by Center mouth 2 (two) times daily. nystatin 2021- No [id number] Q.25D Take [address] (MYCOSTATIN 06-0424 (500,000 [place] es ) 100,000 00:00: 00:00 Units Medica l unit/mL 00 :00 total) by Center suspension mouth 4 (four) times daily. magnesium 2021- No 400mg Q.[id number] Take [address] oxide 06-04 [id number] tablet [facility] (MAG-OX) 00:00: 00:00 3D (400 mg Medic al 400 mg 00 :00 total) by Center (241.3 mg mouth 3 magnesium) (three) tablet times daily. magnesium 2021- No 400mg Q.[id number] Take [address] oxide 06-04 [id number] tablet [facility] (MAG-OX) 00:00: 00:00 3D (400 mg Medic al 400 mg 00 :00 total) by Center (241.3 mg mouth 3 magnesium) (three) tablet times daily. tacrolimus 2021- No 6mg Q.5D Take [address] (PROGRAF) 1 06-04 capsules [place] es MG capsule 00:00: 00:00 (6 mg Medic al 00 :00 total) by Center mouth 2 (two) times daily. valGANciclo 2021- No 450mg Take [address] vir 06-04 tablet [facility] (VALCYTE) 00:00: 00:00 (450 mg Medi álvaro 450 mg 00 :00 total) by Center tablet mouth every other day. furosemide 2021-2021- No 40mg QD Take [address] (LASIX) 40 06-04 tablet (40 [place] kes MG tablet 00:00: 00:00 mg total) Me dical 00 :00 by mouth Center daily. tacrolimus 2021-0 2021- No 6mg Q.5D Take [address] (PROGRAF) 1 06-04 capsules [place] es MG capsule 00:00: 00:00 (6 mg Medic al 00 :00 total) by Center mouth 2 (two) times daily. valGANciclo 2021- No 450mg Take [address] vir 06-04 tablet [facility] (VALCYTE) 00:00: 00:00 (450 mg Medi álvaro 450 mg 00 :00 total) by Center tablet mouth every other day. furosemide 2021- No 40mg QD Take [address] (LASIX) 40 06-04 tablet (40 [place] kes MG tablet 00:00: 00:00 mg total) Me dical 00 :00 by mouth Center daily. sulfamethox 2021- No 160mg{t Q.[id number] Take [address] azole-trime 06-04 rimetho [id number] tablet [facility] thoprim 00:00: 00:00 prim} 3W (160 mg of Me dical (BACTRIM 00 :00 trimethopr Cente r DS) 800-160 im total) mg per by mouth 3 tablet (three) times a week SAT/SAT/ I. famotidine 2021- No 20mg QD Take [address] (PEPCID) 20 06-04 tablet (20 L ukes MG tablet 00:00: 00:00 mg total) Me dical 00 :00 by mouth Center daily. acetaminoph No 1{tbl} Take [address] en-codeine 06-04 tablet by [place] es (Tylenol-Co 00:00: 23:59 mouth Medi álvaro deine #3) 00 :00 every 6 Center 300-30 mg (six) per tablet hours as needed for up to 10 days. Max Daily Amount: 4 tablets sulfamethox 2021- No 160mg{t Q.[id number] Take [address] azole-trime 06-04 rimetho [id number] tablet [facility] thoprim 00:00: 00:00 prim} 3W (160 mg of Me dical (BACTRIM 00 :00 trimethopr Cente r DS) 800-160 im total) mg per by mouth 3 tablet (three) times a week SAT/SAT/ I. famotidine 2021- No 20mg QD Take [address] (PEPCID) 20 06-04 tablet (20 L ukes MG tablet 00:00: 00:00 mg total) Me dical 00 :00 by mouth Center daily. acetaminoph 2021- No 1{tbl} Take [address] en-codeine 06-04 tablet by Maricruz petersen (Tylenol-Co 00:00: 23:59 mouth Medi álvaro deine #3) 00 :00 every 6 Center 300-30 mg (six) per tablet hours as needed for up to 10 days. Max Daily Amount: 4 tablets Benzonatate Benzonatate 2021- No 1{capsu TID Benzonatat 100 MG 100 MG 04-12 le_as_n e 100 MG 00:00: 00:00 eeded} 00 :00 Benzonatate Benzonatate 2021- No 1{capsu TID Benzonatat 100 MG 100 MG 04-12 le_as_n e 100 MG 00:00: 00:00 eeded} 00 :00 Benzonatate Benzonatate 2021- No 1{capsu TID Benzonatat 100 MG 100 MG 04-12 le_as_n e 100 MG 00:00: 00:00 eeded} 00 :00 Azithromyci Azithromyci 2021- No QD Azithromyc n 250 MG n 250 MG 04-12 in 250 MG 00:00: 00:00 00 :00 Betamethaso Betamethaso 0 2019- No Miladys 1 Common ne ne 12-14 [place] applicatio Spi rit Dipropionat Dipropionat 00:00: 00:00 n to - [facility] e e 00 :[address] area(s) [facility] HydrOXYzine HydrOXYzine Yes Miladys 1 tablet Common HCl HCl 10-22 Mill[place] as needed Spiri t 00:00: fot - [facility]I 00 itching [facility] Micardis Micardis Yes Miladys 1 tablet Common HCT HCT 6- [facility] Spirit 00:00: - [facility]I 00 [facility] Telmisartan Telmisartan No QD Telmisarta -HCTZ 80-25 -HCTZ 80-25 n-HCTZ MG MG 80-25 MG amLODIPine amLODIPine No 1{table QD amLODIPine Besylate 5 Besylate 5 t} Besylate 5 MG MG MG Telmisartan Telmisartan No QD Telmisarta -HCTZ 80-25 -HCTZ 80-25 n-HCTZ MG MG 80-25 MG amLODIPine amLODIPine No 1{table QD amLODIPine Besylate 5 Besylate 5 t} Besylate 5 MG MG MG amLODIPine amLODIPine No 1{table QD amLODIPine Besylate 5 Besylate 5 t} Besylate 5 MG MG MG Telmisartan Telmisartan No QD Telmisarta -HCTZ 80-25 -HCTZ 80-25 n-HCTZ MG MG 80-25 MG amLODIPine amLODIPine No 1{table QD amLODIPine Besylate 5 Besylate 5 t} Besylate 5 MG MG MG Telmisartan Telmisartan No QD Telmisarta -HCTZ 80-25 -HCTZ 80-25 n-HCTZ MG MG 80-25 MG Keflex Keflex Yes Miladys 1 capsule Commo n [facility] Spirit [facility] Amlodipine Amlodipine Yes Miladys 1 tablet Common Besylate Besylate [facility] Sp viki - CHI [facility] Triamcinolo Triamcinolo Yes Miladys 1 Common ne ne Millender applicatio Spir it Acetonide Acetonide n to - CHI affected [facility] Telmisartan Telmisartan No QD Telmisarta -HCTZ 80-25 -HCTZ 80-25 n-HCTZ MG MG 80-25 MG amLODIPine amLODIPine No 1{table QD amLODIPine Besylate 5 Besylate 5 t} Besylate 5 MG MG MG amLODIPine amLODIPine No 1{table QD amLODIPine Besylate 5 Besylate 5 t} Besylate 5 MG MG MG Telmisartan Telmisartan No QD Telmisarta -HCTZ 80-25 -HCTZ 80-25 n-HCTZ MG MG 80-25 MG Immunizations Ordered Immunization Filled Immunization Date Status Commen ts Source Name Name Hepatitis B Adult IM 2022-05-[address] [facility] 00:00[facility]00 [facility]19 Vaccine 2022-05-[address] [facility] MRNA (PF) 12yr+ 00:00:00 Medical C enter (Pfizer/BioNTech)(IM M601) Hepatitis B Adult 2022-05-[address] [facility] 00:00:00 [facility]19 Vaccine 2022-05-[address] [facility] MRNA (PF) 12yr+ 00:00:00 Medical C enter (Pfizer/BioNTech)(IM [id number]) Flucelvax - single Flucelvax - single 2019-12-15 Completed [facility] dose syringe dose syringe 16:03:00 - [facility] Flucelvax - single Flucelvax - single 2019-12-15 Completed [facility] dose syringe dose syringe 16:03:00 - [facility] Flucelvax - single Flucelvax - single 2019-12-15 Completed [facility] dose syringe dose syringe 16:03:00 - [facility] Flucelvax - single Flucelvax - single 2019-12-15 Completed [facility] dose syringe dose syringe 16:03:00 - [facility] Flucelvax - single Flucelvax - single 2019-12-15 Completed [facility] dose syringe dose syringe 16:03:00 - [facility] Flucelvax - single Flucelvax - single 2019-12-15 Completed [facility] dose syringe dose syringe 16:03:00 - [facility] Flucelvax - single Flucelvax - single 2019-12-15 Completed [facility] dose syringe dose syringe 00:00:00 - [facility] Influenza Antibiotic 2019-12-[address] [facility] Free PF IM ([id number]) 00:00:00 [facility] Influenza Antibiotic 2019-12-[address] [facility] Free PF IM ([id number]) 00:00:00 [facility] Vital Signs Vital Name Observation Time Observation Value Comments Source WEIGHT 2022-08-06 12:41:00 45.8 kg WEIGHT 2022-08-06 04:00:00 47.265 kg WEIGHT 2022-08-06 12:41:00 45.8 kg WEIGHT 2022-08-06 04:00:00 47.265 kg WEIGHT 2022-08-06 12:41:00 45.8 kg WEIGHT 2022-08-06 04:00:00 47.265 kg WEIGHT 2022-06-04 19:30:00 55.3 kg WEIGHT 2022-06-03 08:15:00 57.289 kg WEIGHT 2022-06-01 18:15:00 60.8 kg WEIGHT 2022-06-01 03:31:00 58.832 kg WEIGHT 2022-05-30 11:45:00 63 kg WEIGHT 2022-05-28 05:00:00 56.972 kg WEIGHT 2022-05-25 18:10:00 56.4 kg WEIGHT 2022-05-25 03:20:00 59.875 kg WEIGHT 2022-05-23 13:45:00 62.4 kg HEIGHT 2022-05-18 08:00:00 160 cm WEIGHT 2022-05-15 12:30:00 60.5 kg WEIGHT 2022-05-11 18:00:00 62.5 kg WEIGHT 2022-05-11 14:15:00 64.5 kg WEIGHT 2022-05-07 23:00:00 61.5 kg HEIGHT 2022-05-05 09:56:00 160 cm WEIGHT 2022-05-05 09:56:00 58.514 kg WEIGHT 2022-05-04 23:23:00 54.9 kg WEIGHT 2022-05-04 19:52:00 57 kg WEIGHT 2022-05-02 18:30:00 57.5 kg WEIGHT 2022-05-02 13:40:00 58.5 kg HEIGHT 2022-04-30 11:50:00 160 cm WEIGHT 2022-04-30 11:50:00 58.514 kg WEIGHT 2022-04-28 15:00:00 58.8 kg WEIGHT 2022-04-27 20:30:00 58.5 kg HEIGHT 2022-04-26 19:30:00 160 cm WEIGHT 2022-04-26 19:30:00 58.514 kg WEIGHT 2022-06-04 19:30:00 55.3 kg WEIGHT 2022-06-03 08:15:00 57.289 kg WEIGHT 2022-06-01 18:15:00 60.8 kg WEIGHT 2022-06-01 03:31:00 58.832 kg WEIGHT 2022-05-30 11:45:00 63 kg WEIGHT 2022-05-28 05:00:00 56.972 kg WEIGHT 2022-05-25 18:10:00 56.4 kg WEIGHT 2022-05-25 03:20:00 59.875 kg WEIGHT 2022-05-23 13:45:00 62.4 kg HEIGHT 2022-05-18 08:00:00 160 cm WEIGHT 2022-05-15 12:30:00 60.5 kg WEIGHT 2022-05-11 18:00:00 62.5 kg WEIGHT 2022-05-11 14:15:00 64.5 kg WEIGHT 2022-05-07 23:00:00 61.5 kg HEIGHT 2022-05-05 09:56:00 160 cm WEIGHT 2022-05-05 09:56:00 58.514 kg WEIGHT 2022-05-04 23:23:00 54.9 kg WEIGHT 2022-05-04 19:52:00 57 kg WEIGHT 2022-05-02 18:30:00 57.5 kg WEIGHT 2022-05-02 13:40:00 58.5 kg HEIGHT 2022-04-30 11:50:00 160 cm WEIGHT 2022-04-30 11:50:00 58.514 kg WEIGHT 2022-04-28 15:00:00 58.8 kg WEIGHT 2022-04-27 20:30:00 58.5 kg HEIGHT 2022-04-26 19:30:00 160 cm WEIGHT 2022-04-26 19:30:00 58.514 kg WEIGHT 2022-06-04 19:30:00 55.3 kg WEIGHT 2022-06-03 08:15:00 57.289 kg WEIGHT 2022-06-01 18:15:00 60.8 kg WEIGHT 2022-06-01 03:31:00 58.832 kg WEIGHT 2022-05-30 11:45:00 63 kg WEIGHT 2022-05-28 05:00:00 56.972 kg WEIGHT 2022-05-25 18:10:00 56.4 kg WEIGHT 2022-05-25 03:20:00 59.875 kg WEIGHT 2022-05-23 13:45:00 62.4 kg HEIGHT 2022-05-18 08:00:00 160 cm WEIGHT 2022-05-15 12:30:00 60.5 kg WEIGHT 2022-05-11 18:00:00 62.5 kg WEIGHT 2022-05-11 14:15:00 64.5 kg WEIGHT 2022-05-07 23:00:00 61.5 kg HEIGHT 2022-05-05 09:56:00 160 cm WEIGHT 2022-05-05 09:56:00 58.514 kg WEIGHT 2022-05-04 23:23:00 54.9 kg WEIGHT 2022-05-04 19:52:00 57 kg WEIGHT 2022-05-02 18:30:00 57.5 kg WEIGHT 2022-05-02 13:40:00 58.5 kg HEIGHT 2022-04-30 11:50:00 160 cm WEIGHT 2022-04-30 11:50:00 58.514 kg WEIGHT 2022-04-28 15:00:00 58.8 kg WEIGHT 2022-04-27 20:30:00 58.5 kg HEIGHT 2022-04-26 19:30:00 160 cm WEIGHT 2022-04-26 19:30:00 58.514 kg height 2022-04-12 15:20:00 63.00 [in_i] [facility] weight 2022-04-12 15:20:00 143 [lb_av] [facility] bmi 2022-04-12 15:20:00 25.33 kg/m2 [facility] height 2021-06-29 11:00:00 63.00 [in_i] [facility] weight 2021-06-29 11:00:00 143.2 [lb_av] [facility] temperature 2021-06-29 11:00:00 97.9 [degF] [facility] bmi 2021-06-29 11:00:00 25.36 kg/m2 [facility] oximetry 2021-06-29 11:00:00 98 % [facility] respiratory rate 2021-06-29 11:00:00 18 /min [facility] blood pressure 2021-06-29 11:00:00 146 mm[Hg] [facility] systolic [facility] blood pressure 2021-06-29 11:00:00 68 mm[Hg] [facility] diastolic [facility] Systolic blood 2022-09-27 08:22:00 108 mm[Hg] [facility] Diastolic blood 2022-09-27 08:22:00 74 mm[Hg] [facility] Heart rate 2022-09-27 08:22:00 83 /min [facility] Body temperature 2022-09-27 08:22:00 36.83 Renea [facility] Respiratory rate 2022-09-27 08:22:00 18 /min [facility] Body height 2022-09-27 08:22:00 160 cm [facility] Body weight 2022-09-27 08:22:00 49.17 kg [facility] BMI 2022-09-27 08:22:00 19.20 kg/m2 [facility] Oxygen saturation in 2022-09-27 08:22:00 100 /min [facility] Arterial blood by Medical [facility]ter Pulse oximetry Systolic blood 2022-07-12 07:48:00 137 mm[Hg] [facility] Diastolic blood 2022-07-12 07:48:00 85 mm[Hg] [facility] Heart rate 2022-07-12 07:48:00 77 /min [facility] Body temperature 2022-07-12 07:48:00 36.67 Renea [facility] Respiratory rate 2022-07-12 07:48:00 18 /min [facility] Body height 2022-07-12 07:48:00 160 cm [facility] Body weight 2022-07-12 07:48:00 47.265 kg [facility] BMI 2022-07-12 07:48:00 18.46 kg/m2 [facility] Oxygen saturation in 2022-07-12 07:48:00 100 /min [facility] Arterial blood by Medical [facility] Pulse oximetry Procedures Procedure Date / Time Performing Source Performed Clinician BILIRUBIN, DIRECT 2022-09-27 [address]ino Spence Alan [facility] 07:10:00 [facility] COMPREHENSIVE METABOLIC PANEL 2022-09-27 Dino Spence Alan [facility] 07:10:00 [facility] CBC W/PLT COUNT & AUTO 2022-09-[address] [facility] DIFFERENTIAL 07:10:00 [facility] MAGNESIUM 2022-09-[address] [facility] 07:10:00 [facility] PHOSPHORUS 2022-09-27 Dino Spence Alan [facility] 07:10:00 [facility] TACROLIMUS LEVEL 2022-09-[address] [facility] 07:10:00 [facility] HLA TYPING CI 2022-09-27 Mikhail, Bhamidipati [facility] 07:10:00 [facility] HLA TYPING CII 2022-09-27 Mikhail, Bhamidipati [facility] 07:10:00 [facility] FLOW PRA CLASS I WITH REFLEX TO 2022-09-27 Mikhail, Bhamidip ati [facility] ANTIBODY SPECIFICITY 07:10:[address] [facility] [address] FLOW PRA CLASS II WITH REFLEX TO 2022-09-27 Mikhail, Bhamidi dede [facility] ANTIBODY SPECIFICITY 07:10:[address] [facility] [address] AB SPECIFICITY CLASS I 2022-09-27 Mikhail[facility]ipati [facility] 07:10:00 [facility] AB SPECIFICITY CLASS II 2022-09-27 Mikhail, Bhamidipati [facility] 07:10:00 [facility] CBC W/PLT COUNT & AUTO 2022-09-[address] [facility] DIFFERENTIAL 07:10:00 [facility] APTT 2022-08-[address] [facility] 07:07:00 [facility] CBC W/PLT COUNT & AUTO 2022-08-[address] [facility] DIFFERENTIAL 07:07:00 [facility] COMPREHENSIVE METABOLIC PANEL 2022-08-30 Aparna Pride [facility] 07:07:00 [facility] MAGNESIUM 2022-08-[address] [facility] 07:07:00 [facility] PHOSPHORUS 2022-08-[address] [facility] 07:07:00 [facility] PROTHROMBIN TIME/INR 2022-08-[address] [facility] 07:07:00 [facility] TACROLIMUS LEVEL 2022-08-[address] [facility] 07:07:00 [facility] BILIRUBIN, DIRECT 2022-08-[address] [facility] 07:07:00 [facility] CBC W/PLT COUNT & AUTO 2022-08-[address] [facility] DIFFERENTIAL 07:07:00 [facility] APTT 2022-08-[address] [facility] 06:55:00 [facility] CBC W/PLT COUNT & AUTO 2022-08-[address] [facility] DIFFERENTIAL 06:55:00 [facility] COMPREHENSIVE METABOLIC PANEL 2022-08-16 Apar[address] Pride [facility] 06:55:00 [facility] MAGNESIUM 2022-08-[address] [facility] 06:55:00 [facility] PHOSPHORUS 2022-08-[address] [facility] 06:55:00 [facility] PROTHROMBIN TIME/INR 2022-08-[address] [facility] 06:55:00 [facility] TACROLIMUS LEVEL 2022-08-[address] [facility] 06:55:00 [facility] BILIRUBIN, DIRECT 2022-08-[address] [facility] 06:55:00 [facility] CBC W/PLT COUNT & AUTO 2022-08-[address] [facility] DIFFER[facility] 06:55:00 [facility] (MANUAL DIFFERENTIAL) 2022-08-[address] [facility] 06:55:00 [facility] POCT-GLUCOSE METER 2022-08-[address] [facility] 13:04:00 [facility] APTT 2022-08-[address] [facility] 06:29:00 [facility] CBC W/PLT COUNT & AUTO 2022-08-[address] [facility] DIFFERENTIAL 06:29:00 [facility] COMPREHENSIVE METABOLIC PANEL 2022-08-06 Aparna Pride [facility] 06:29:00 [facility] MAGNESIUM 2022-08-[address] [facility] 06:29:00 [facility] PHOSPHORUS 2022-08-[address] [facility] 06:29:00 [facility] PROTHROMBIN TIME/INR 2022-08-[address] [facility] 06:29:00 [facility] TACROLIMUS LEVEL 2022-08-[address] [facility] 06:29:00 [facility] CBC W/PLT COUNT & AUTO 2022-08-[address] [facility] 06:29:00 [facility] (CELLAVISION MANUAL DIFF) 2022-08-[address] [facility] 06:29:00 [facility] POCT-GLUCOSE METER 2022-08-[address] [facility] 21:15:00 [facility] POCT-GLUCOSE METER 2022-08-[address] [facility] 17:11:00 [facility] 2D ECHO W/ DOPPLER (CW/PW/COLOR) 2022-08-[address] [facility] 13:23:34 [facility] CBC W/PLT COUNT & AUTO 2022-08-[address] [facility] 13:13:00 [facility] COMPREHENSIVE METABOLIC PANEL 2022-08-05 A[address] [facility] 13:13:00 [facility] MAGNESIUM 2022-08-[address] [facility] 13:13:00 [facility] PHOSPHORUS 2022-08-[address] [facility] 13:13:00 [facility] CBC W/PLT COUNT & AUTO 2022-08-[address] [facility] 13:13:00 [facility] (CELLAVISION MANUAL DIFF) 2022-08-[address] [facility] 13:13:00 [facility] PROTHROMBIN TIME/INR 2022-08-[address] [facility] 13:12:00 [facility] APTT 2022-08-[address] [facility] 13:12:00 [facility] POCT-GLUCOSE METER 2022-08-[address] [facility] 11:24:00 [facility] POCT-GLUCOSE METER 2022-08-[address] [facility] 07:58:00 [facility] TACROLIMUS LEVEL 2022-08-[address] [facility] 06:35:00 [facility] POCT-GLUCOSE METER 2022-08-[address] [facility] 17:57:00 [facility] CARDIOLIPIN ANTIBODIES, IGG AND 2022-08-[address] [facility] IGM 17:14:[address] [facility] BETA-2 GLYCOPROTEIN ANTIBODIES 2022-08-[address] [facility] 17:14:[address] [facility] [id number]-[id number] I IGG 2022-08-[address] [facility] 17:14:[address] [facility] PWJL-9-[id number] I IGM 2022-08-[address] [facility] 17:14:[address] [facility] [id number]-[id number] I IGA 2022-08-[address] [facility] 17:14:[address] [facility] POCT-GLUCOSE METER 2022-08-[address] [facility] 12:40:00 [facility] POCT-GLUCOSE METER 2022-08-[address] [facility] 07:57:00 [facility] APTT 2022-08-[address] [facility] 06:26:00 [facility] PT/APTT 2022-08-[address] [facility] 06:26:00 [facility] D-DIMER 2022-08-[address] [facility] 06:26:00 [facility] CBC W/PLT COUNT & AUTO 2022-08-04 Avilez, Favian [facility] DIFFERENTIAL 06:26:00 [facility] TACROLIMUS LEVEL 2022-08-[address] [facility] 06:26:00 [facility] IRON, TIBC, % SAT. (WITHOUT 2022-08-04 Allen, Gerald [facility] FERRITIN) 06:26:00 [facility] FERRITIN 2022-08-04 Allen, Gerald [facility] 06:26:00 [facility] HEPATITIS B SURFACE ANTIGEN 2022-08-04 Allen, Gerald [facility] 06:26:00 [facility] CBC W/PLT COUNT & AUTO 2022-08-04 Avilez, Favian [facility] DIFFERENTIAL 06:26:00 [facility] (CELLAVISION MANUAL DIFF) 2022-08-[address] [facility] 06:26:00 [facility] POCT-GLUCOSE METER 2022-08-03 Lambing, Anup [facility] 22:03:00 [facility] POCT-GLUCOSE METER 2022-08-03 Lambing, Anup [facility] 17:02:00 [facility] POCT-GLUCOSE METER 2022-08-03 Lambing, Anup [facility] 11:59:00 [facility] ECG 12-LEAD 2022-08-03 Unknown, Hl7 Doctor [facility] 02:27:16 [facility] PERMANENT LAB REPORT - SCAN 2022-08-02 Provider, Default [facility] 00:[facility]:00 [facility] CMV PCR, QUANTITATIVE 2022-07-[address] [facility] 08:07:00 [facility] EBV VIRAL LOAD 2022-07-[address] [facility] 08:07:00 [facility] ADENOVIRUS PCR, QUALITATIVE 2022-07-[address] [facility] 08:07:00 [facility] BILIRUBIN, DIRECT 2022-07-[address] [facility] 06:59:00 [facility] COMPREHENSIVE METABOLIC PANEL 2022-07-[address] [facility] 06:59:00 [facility] CBC W/PLT COUNT & AUTO 2022-07-[address] [facility] 06:59:00 [facility] MAGNESIUM 2022-07-12 Jordy, Dino Chirag [facility] 06:59:00 [facility] PHOSPHORUS 2022-07-12 [address] [facility] 06:59:00 [facility] TACROLIMUS LEVEL 2022-07-12 Jord[address] [facility] 06:59:00 [facility] CBC W/PLT COUNT & AUTO 2022-07-12 Jordy, Dino Chirag [facility] 06:59:00 [facility] (CELLAVISION MANUAL DIFF) 2022-07-[address] [facility] 06:59:00 [facility] BILIRUBIN, DIRECT 2022-07-09 Jordy [address] [facility] 07:51:00 [facility] COMPREHENSIVE METABOLIC PANEL 2022-07-09 Jordy Dino Chirag [facility] 07[facility]51:00 [facility] CBC W/PLT COUNT & AUTO 2022-07-09 [address] [facility] 07:51:00 [facility] MAGNESIUM 2022-07-09 [address] [facility] 07:51:00 [facility] PHOSPHORUS 2022-07-09 Dino [address] [facility] 07:51:00 [facility] TACROLIMUS LEVEL 2022-07-09 [address]ord[address] [facility] 07:51:00 [facility] CBC W/PLT COUNT & AUTO 2022-07-09 [address] [facility] 07:51:00 [facility] (CELLAVISION MANUAL DIFF) 2022-07-09 Dino Spence [address] [facility] 07:51:00 [facility] BILIRUBIN, DIRECT 2022-07-05 Dino Spence [address]ag [facility] 07:52:00 [facility] COMPREHENSIVE METABOLIC PANEL 2022-07-05 Jordy Dino Chirag [facility] 07:52:00 [facility] CBC W/PLT COUNT & AUTO 2022-07-05 [address] [facility] 07:52:00 [facility] MAGNESIUM 2022-07-05 [address]ord[address] [facility] 07:52:00 [facility] PHOSPHORUS 2022-07-05 [address]ord[address] [facility] 07:52:00 [facility] TACROLIMUS LEVEL 2022-07-05 Jordy [address] [facility] 07:52:00 [facility] CBC W/PLT COUNT & AUTO 2022-07-05 Jordy, Dino Josephn [facility] 07:52:00 [facility] BILIRUBIN, DIRECT 2022-06-28 Jordy, Dino Chirag [facility] 09:21:00 [facility] COMPREHENSIVE METABOLIC PANEL 2022-06-28 Jordy, Dino Chirag [facility] 09:21:00 [facility] CBC W/PLT COUNT & AUTO 2022-06-28 Jordy, Dino Chirag [facility] 09:21:00 [facility] MAGNESIUM 2022-06-28 Jordy, Dino Chirag [facility] 09:21:00 [facility] PHOSPHORUS 2022-06-28 Jordy, Dino Chirag [facility] 09:21:00 [facility] TACROLIMUS LEVEL 2022-06-28 Jordy, Dino Chirag [facility] 09:21:00 [facility] CBC W/PLT COUNT & AUTO 2022-06-28 Dino Spence Chirag [facility]FFER[facility] 09:21:00 [facility] US ABDOMEN COMPLETE 2022-06-21 Rana, Abbas Chau [facility] 12:56:00 [facility] US DOPPLER 2022-06-21 Rana, Abbas Chau [facility] 12:56:00 [facility] BILIRUBIN, DIRECT 2022-06-21 Jordy [address] [facility] 08:52:00 [facility] COMPREHENSIVE METABOLIC PANEL 2022-06-21 Dino Spence Alan [facility] 08:52:00 [facility] CBC W/PLT COUNT & AUTO 2022-06-21 Jordy [address] [facility]FFER[facility] 08:52:00 [facility] MAGNESIUM 2022-06-21 Jordy [address] [facility] 08:52:00 [facility] PHOSPHORUS 2022-06-21 Jordy [address] [facility] 08:52:00 [facility] TACROLIMUS LEVEL 2022-06-21 Jordy [address] [facility] 08:52:00 [facility] CBC W/PLT COUNT & AUTO 2022-06-21 Jordy, Dino Chirag [facility] 08:52:00 [facility] BILIRUBIN, DIRECT 2022-06-16 Jordy Dino [address] [facility] 09:46:00 [facility] COMPREHENSIVE METABOLIC PANEL 2022-06-16 Jordy Dino Chirag [facility] 09[facility]46:00 [facility] CBC W/PLT COUNT & AUTO 2022-06-[address] [facility] DIFFERENTIAL 09:46:00 [facility] MAGNESIUM 2022-06-16 Dino Spence Alan [facility] 09:46:00 [facility] PHOSPHORUS 2022-06-16 Dino Spence Alan [facility] 09:46:00 [facility] TACROLIMUS LEVEL 2022-06-[address] [facility] 09:46:00 [facility] HIV-1 PCR, QUANTITATIVE 2022-06-[address] [facility] 09:46:00 [facility] HEPATITIS B PCR, QUANTITATIVE 2022-06-[address] [facility] 09:46:00 [facility] HEPATITIS C PCR, QUANTITATIVE 2022-06-16 Jordy, Dino Beard [facility] 09:46:00 [facility] CBC W/PLT COUNT & AUTO 2022-06-[address] [facility] 09:46:00 [facility] BILIRUBIN, DIRECT 2022-06-15 Dino [address] [facility] 07:34:00 [facility] COMPREHENSIVE METABOLIC PANEL 2022-06-[address] [facility] 07:34:00 [facility] CBC W/PLT COUNT & AUTO 2022-06-[address] [facility] 07:34:00 [facility] MAGNESIUM 2022-06-15 [address] [facility] 07:34:00 [facility] PHOSPHORUS 2022-06-15 Dino Spence [address]ag [facility] 07:34:00 [facility] TACROLIMUS LEVEL 2022-06-15 Dino Spence [address]irag [facility] 07:34:00 [facility] CBC W/PLT COUNT & AUTO 2022-06-[address] [facility] 07:34:00 [facility] REPORT OF PROCEDURE - ENDOSCOPY 2022-06-[address] [facility] URL 13:30:27 [facility] [place] ERCP 2022-06-14 Yeison Diaz [facility] 13:24:00 [facility] ENDOSCOPIC RETROGRADE 2022-06-[address] [facility] juans CHOLANGIOPANCREATOGRAPHY, WITH 11:53:00 [facility] BALLOON SWEEP OF BILE DUCTS PROCEDURE W/ C-ARM 2022-06-14 Amiyam[address] Yeison Parks [facility] 11:53:00 [facility] ENDOSCOPIC RETROGRADE 2022-06-[address] Ye[address] Parks [facility] CHOLANGIOPANCREATOGRAPHY, WITH 11:53:00 [facility] SPHINCTEROTOMY ENDOSCOPIC RETROGRADE 2022-06-[address] Ye[address] [facility] CHOLANGIOPANCREATOGRAPHY, WITH 11:53:00 [facility] BILE DUCT STENT INSERTION POCT-POTASSIUM 2022-06-14 Emily Yeison Parks [facility] 11:21:00 [facility] POCT-GLUCOSE METER 2022-06-14 Emily Yeison L [facility] 11:09:00 [facility] BILIRUBIN, DIRECT 2022-06-[address] [facility] 08:23:00 [facility] COMPREHENSIVE METABOLIC PANEL 2022-06-[address] [facility] 08:23:00 [facility] CBC W/PLT COUNT & AUTO 2022-06-14 [address] [facility] DIFFER[facility] 08:23:00 [facility] MAGNESIUM 2022-06-14 [address]ord[address] [facility] 08:23:00 [facility] PHOSPHORUS 2022-06-14 Jordy [address] [facility] 08:23:00 [facility] TACROLIMUS LEVEL 2022-06-14 Jordy [address] [facility] 08:23:00 [facility] CBC W/PLT COUNT & AUTO 2022-06-14 Jordy [address] [facility] DIFFER[facility] 08:23:00 [facility] URINE CULTURE 2022-06-11 Liz Abbas Chau [facility] 08:22:00 [facility] BLOOD CULTURE 2022-06-11 Liz Abbas Chau [facility] 08:13:00 [facility] CMV PCR, QUANTITATIVE 2022-06-11 Liz Abbas Ch[facility] 08:13:00 [facility] BLOOD CULTURE 2022-06-11 Liz Abbas Chau [facility] 08:07:00 [facility] BILIRUBIN, DIRECT 2022-06-11 [address] [facility] 08:07:00 [facility] COMPREHENSIVE METABOLIC PANEL 2022-06-11 Dino Spence Alan [facility] 08:07:00 [facility] MAGNESIUM 2022-06-11 Jordy, Dino Chirag [facility] 08:07:00 [facility] PHOSPHORUS 2022-06-11 Jordy, Dino Chirag [facility] 08:07:00 [facility] GAMMA GLUTAMYL TRANSFERASE (GGT) 2022-06-11 Liz Abbas Chau [facility] 08:07:00 [facility] CBC W/PLT COUNT & AUTO 2022-06-11 Jordy, Dino Chirag [facility] DIFFER[facility] 08:06:00 [facility] TACROLIMUS LEVEL 2022-06-11 Jordy, Dino Chirag [facility] 08:06:00 [facility] EBV VIRAL LOAD 2022-06-11 Rana, Abbas Chau [facility] 08:06:00 [facility] CBC W/PLT COUNT & AUTO 2022-06-11 Jordy, Dino Chirag [facility] DIFFERENTIAL 08:06:00 [facility] BILIRUBIN, DIRECT 2022-06-07 Jordy, Dino Chirag [facility] 08:12:00 [facility] COMPREHENSIVE METABOLIC PANEL 2022-06-07 Dino Spence [facility] 08:12:00 [facility] CBC W/PLT COUNT & AUTO 2022-06-07 Jordy, Dino Chirag [facility] DIFFERENTIAL 08:12:00 [facility] MAGNESIUM 2022-06-07 Jordy, Dino Chirag [facility] 08:12:00 [facility] PHOSPHORUS 2022-06-07 Jordy, Dino Chirag [facility] 08:12:00 [facility] TACROLIMUS LEVEL 2022-06-07 Jordy, Dino Chirag [facility] 08:12:00 [facility] CBC W/PLT COUNT & AUTO 2022-06-07 Jordy, Dino Chirag [facility] DIFFERENTIAL 08:12:00 [facility] BILIRUBIN, DIRECT 2022-06-05 Jordy, Dino Chirag [facility] 08:16:00 [facility] COMPREHENSIVE METABOLIC PANEL 2022-06-05 Jordy, Dino [facility]irag [facility] 08[facility]16:00 [facility] CBC W/PLT COUNT & AUTO 2022-06-05 Jordy, Dino Chirag [facility] DIFFERENTIAL 08:16:00 [facility] MAGNESIUM 2022-06-05 [place], Dino Chirag [facility] 08:16:00 [facility] PHOSPHORUS 2022-06-05 Jordy, Dino Chirag [facility] 08:16:00 [facility] TACROLIMUS LEVEL 2022-06-[address] [facility] 08:16:00 [facility] VITAMIN D, 25-HYDROXY 2022-06-[address] [facility] 08:16:00 [facility] HEPATITIS B PCR, QUANTITATIVE 2022-06-[address] [facility] 08:16:00 [facility] HEPATITIS C PCR, QUANTITATIVE 2022-06-[address] [facility] 08:16:00 [facility] HIV-1 PCR, QUANTITATIVE 2022-06-05 Dino Spence [address] [facility] 08:16:00 [facility] CBC W/PLT COUNT & AUTO 2022-06-05 Jordy Dino Beard [facility] DIFFERENTIAL 08:16:00 [facility] HEMODIALYSIS INPATIENT 2022-06-[address] [facility] 19:33:00 [facility] POCT-GLUCOSE METER 2022-06-04 Jordy [address] [facility] 18:25:00 [facility] POCT-GLUCOSE METER 2022-06-04 Jordy [address] [facility] 11:53:00 [facility] CBC W/PLT COUNT & AUTO 2022-06-[address] [facility] DIFFERENTIAL 10:46:00 [facility] CBC W/PLT COUNT & AUTO 2022-06-[address] [facility] DIFFERENTIAL 10:46:00 [facility] POCT-GLUCOSE METER 2022-06-04 [address] [facility] 07:48:00 [facility] PREALBUMIN 2022-06-[address] [facility] 05:37:00 [facility] TSH/FREE T4 IF INDICATED 2022-06-[address] [facility] 05:37:00 [facility] IMMUNOGLOBULIN G (IGG) 2022-06-[address] [facility] 05:37:00 [facility] CBC W/PLT COUNT & AUTO 2022-06-[address] [facility] DIFFERENTIAL 05:37:00 [facility] MAGNESIUM 2022-06-[address] [facility] 05:37:00 [facility] PHOSPHORUS 2022-06-[address] [facility] 05:37:00 [facility] HEPATIC FUNCTION PANEL 2022-06-[address] [facility] 05:37:00 [facility] PROTHROMBIN TIME/INR 2022-06-[address] [facility] 05:37:00 [facility] CMV PCR, QUANTITATIVE 2022-06-[address] [address] [facility] 05:37:00 [facility] CALCIUM, IONIZED 2022-06-[address] [facility] 05:37:00 [facility] COMPREHENSIVE METABOLIC PANEL 2022-06-04 Quezada Jamsh[address] [facility] 05:37:00 [facility] TACROLIMUS LEVEL 2022-06-[address] [facility] 05:37:00 [facility] CBC W/PLT COUNT & AUTO 2022-06-[address] [facility] DIFFERENTIAL 05:37:00 [facility] POCT-GLUCOSE METER 2022-06-[address] [facility] 21:50:00 [facility] POCT-GLUCOSE METER 2022-06-[address] [facility] 16:20:00 [facility] POCT-GLUCOSE METER 2022-06-03 [address] [facility] 11:40:00 [facility] POCT-GLUCOSE METER 2022-06-[address] [facility] 07:35:00 [facility] CBC W/PLT COUNT & AUTO 2022-06-[address] [facility] DIFFERENTIAL 05:54:00 [facility] BASIC METABOLIC PANEL 2022-06-[address] [facility] 05:54:00 [facility] MAGNESIUM 2022-06-[address] [facility] 05:54:00 [facility] PHOSPHORUS 2022-06-[address] [facility] 05:54:00 [facility] HEPATIC FUNCTION PANEL 2022-06-[address] [facility] 05:54:00 [facility] PROTHROMBIN TIME/INR 2022-06-[address] [facility] 05:54:00 [facility] TACROLIMUS LEVEL 2022-06-[address] [facility] 05:54:00 [facility] CBC W/PLT COUNT & AUTO 2022-06-[address] [facility] DIFFERENTIAL 05:54:00 [facility] POCT-GLUCOSE METER 2022-06-02 [address] [facility] 21:04:00 [facility] POCT-GLUCOSE METER 2022-06-[address] [facility] 15:50:00 [facility] POCT-GLUCOSE METER 2022-06-02 [address] [facility] 11:32:00 [facility] POCT-GLUCOSE METER 2022-06-02 [address]ord[address] [facility] 07:18:00 [facility] CBC W/PLT COUNT & AUTO 2022-06-[address] [facility] DIFFERENTIAL 05:18:00 [facility] MAGNESIUM 2022-06-[address] [facility] 05:18:00 [facility] PHOSPHORUS 2022-06-[address] [facility] 05:18:00 [facility] HEPATIC FUNCTION PANEL 2022-06-[address] [facility] 05:18:00 [facility] PROTHROMBIN TIME/INR 2022-06-[address] [facility] 05:18:00 [facility] CALCIUM, IONIZED 2022-06-[address] [facility] 05:18:00 [facility] COMPREHENSIVE METABOLIC PANEL 2022-06-02 [address] [facility] 05:18:00 [facility] TACROLIMUS LEVEL 2022-06-[address] [facility] 05:18:00 [facility] CBC W/PLT COUNT & AUTO 2022-06-[address] [facility] DIFFERENTIAL 05:18:00 [facility] POCT-GLUCOSE METER 2022-06-[address] [facility] 21:39:00 [facility] HEMODIALYSIS INPATIENT 2022-06-[address] [facility] 18:26:00 [facility] CBC W/PLT COUNT & AUTO 2022-06-[address] [facility] DIFFERENTIAL 13:33:00 [facility] CBC W/PLT COUNT & AUTO 2022-06-[address] [facility] DIFFERENTIAL 13:33:00 [facility] (CELLAVISION MANUAL DIFF) 2022-06-[address] [facility] 13:33:00 [facility] POCT-GLUCOSE METER 2022-06-[address] [facility] 11:26:00 [facility] POCT-GLUCOSE METER 2022-06-[address] [facility] 07:35:00 [facility] BASIC METABOLIC PANEL 2022-06-[address] [facility] 05:21:00 [facility] MAGNESIUM 2022-06-[address] [facility] 05:21:00 [facility] PHOSPHORUS 2022-06-[address] [facility] 05:21:00 [facility] HEPATIC FUNCTION PANEL 2022-06-[address] [facility] 05:21:00 [facility] PROTHROMBIN TIME/INR 2022-06-[address] [facility] 05:21:00 [facility] CBC W/PLT COUNT & AUTO 2022-06-[address] [facility] DIFFERENTIAL 05:20:00 [facility] TACROLIMUS LEVEL 2022-06-[address] [facility] 05:20:00 [facility] CBC W/PLT COUNT & AUTO 2022-06-[address] [facility] DIFFERENTIAL 05:20:00 [facility] PREPARE LEUKO-REDUCED RBC 2022-05-[address] [facility] 23:54:00 [facility] POCT-GLUCOSE METER 2022-05-[address] [facility] 21:12:00 [facility] POCT-GLUCOSE METER 2022-05-[address] [facility] 16:28:00 [facility] POCT-GLUCOSE METER 2022-05-[address]ag [facility] 12:07:00 [facility] SARS-COV2/RT-PCR ([facility]) 2022-05-[address] [facility] 11:41:00 [facility] CBC W/PLT COUNT & AUTO 2022-05-[address] [facility] DIFFERENTIAL 11:40:00 [facility] CBC W/PLT COUNT & AUTO 2022-05-[address] [facility] DIFFERENTIAL 11:40:00 [facility] POCT-GLUCOSE METER 2022-05-[address] [facility] 07:49:00 [facility] TACROLIMUS LEVEL 2022-05-[address] [facility] 06:13:00 [facility] CBC W/PLT COUNT & AUTO 2022-05-[address] [facility] DIFFERENTIAL 06:11:00 [facility] BASIC METABOLIC PANEL 2022-05-[address] [facility] 06:11:00 [facility] MAGNESIUM 2022-05-[address] [facility] 06:11:00 [facility] PHOSPHORUS 2022-05-[address] [facility] 06:11:00 [facility] HEPATIC FUNCTION PANEL 2022-05-[address] [facility] 06:11:00 [facility] PROTHROMBIN TIME/INR 2022-05-[address] [facility] 06:11:00 [facility] CBC W/PLT COUNT & AUTO 2022-05-[address] [facility] DIFFERENTIAL 06:11:00 [facility] POCT-GLUCOSE METER 2022-05-[address] [facility] 20:12:00 [facility] CBC W/PLT COUNT & AUTO 2022-05-[address] [facility] DIFFERENTIAL 17:36:00 [facility] CBC W/PLT COUNT & AUTO 2022-05-[address] [facility] DIFFERENTIAL 17:36:00 [facility] POCT-GLUCOSE METER 2022-05-[address] [facility] 11:52:00 [facility] CBC W/PLT COUNT & AUTO 2022-05-[address] [facility] DIFFERENTIAL 09:42:00 [facility] CBC W/PLT COUNT & AUTO 2022-05-[address] [facility] DIFFERENTIAL 09:42:00 [facility] HEMODIALYSIS INPATIENT 2022-05-[address] [facility] 09:26:06 [facility] POCT-GLUCOSE METER 2022-05-[address] [facility] 08:08:00 [facility] TRANSFUSE LEUKO-REDUCED RED BLOOD 2022-05-[address] [facility] CELLS 05:45:00 [facility] CBC W/PLT COUNT & AUTO 2022-05-[address] [facility] DIFFERENTIAL 04:34:00 [facility] BASIC METABOLIC PANEL 2022-05-[address] [facility] 04:34:00 [facility] MAGNESIUM 2022-05-[address] [facility] 04:34:00 [facility] PHOSPHORUS 2022-05-[address] [facility] 04:34:00 [facility] HEPATIC FUNCTION PANEL 2022-05-[address] [facility] 04:34:00 [facility] PROTHROMBIN TIME/INR 2022-05-[address] [facility] 04:34:00 [facility] VANCOMYCIN LEVEL, RANDOM 2022-05-[address] [facility] 04:34:00 [facility] TACROLIMUS LEVEL 2022-05-[address] [facility] 04:34:00 [facility] CBC W/PLT COUNT & AUTO 2022-05-[address] [facility] DIFFERENTIAL 04:34:00 [facility] PREPARE LEUKO-REDUCED RBC 2022-05-[address] [facility] 23:54:00 [facility] PREPARE RBC 2022-05-[address] [facility] 23:54:00 [facility] POCT-GLUCOSE METER 2022-05-[address] [facility] 23:17:00 [facility] CBC W/PLT COUNT & AUTO 2022-05-[address] [facility] DIFFERENTIAL 12:59:00 [facility] CBC W/PLT COUNT & AUTO 2022-05-[address] [facility] DIFFERENTIAL 12:59:00 [facility] POCT-GLUCOSE METER 2022-05-[address] [facility] 12:00:00 [facility] XR CHEST 1 VIEW PORTABLE / BEDSIDE 2022-05-[address] [facility] 08:41:00 [facility] POCT-GLUCOSE METER 2022-05-[address] [facility] 08:17:00 [facility] CBC W/PLT COUNT & AUTO 2022-05-[address] [facility] DIFFERENTIAL 04:45:00 [facility] BASIC METABOLIC PANEL 2022-05-[address] [facility] 04:45:00 [facility] MAGNESIUM 2022-05-[address] [facility] 04:45:00 [facility] PHOSPHORUS 2022-05-[address] [facility] 04:45:00 [facility] HEPATIC FUNCTION PANEL 2022-05-[address] [facility] 04:45:00 [facility] PROTHROMBIN TIME/INR 2022-05-[address] [facility] 04:45:00 [facility] TACROLIMUS LEVEL 2022-05-[address] [facility] 04:45:00 [facility] CBC W/PLT COUNT & AUTO 2022-05-[address] [facility] DIFFERENTIAL 04:45:00 [facility] (CELLAVISION MANUAL DIFF) 2022-05-[address] [facility] 04:45:00 [facility] BLOOD CULTURE 2022-05-[address] [facility] 04:44:00 [facility] US ABDOMINAL WITH DOPPLER 2022-05-[address] [facility] 00:10:00 [facility] POCT-GLUCOSE METER 2022-05-[address] [facility] 21:21:00 [facility] CBC (HEMOGRAM ONLY) 2022-05-[address] [facility] 18:46:00 [facility] ESOPHAGOGASTRODUODENOSCOPY 2022-05-[address] [facility] 18:30:00 [facility] REPORT OF PROCEDURE - ENDOSCOPY 2022-05-[address] [facility] URL 18:03:58 [facility] POCT-GLUCOSE METER 2022-05-[address] [facility] 17:31:00 [facility] TRANSFUSE LEUKO-REDUCED RED BLOOD 2022-05-[address] [facility] CELLS 16:55:00 [facility] TRANSFUSE LEUKO-REDUCED RED BLOOD 2022-05-[address] [facility] CE[facility] 14:25:00 [facility] HEMODIALYSIS INPATIENT 2022-05-[address] [facility] 14:12:16 [facility] LACTATE DEHYDROGENASE (LDH) 2022-05-[address] [facility] 14:06:00 [facility] CMV PCR, QUANTITATIVE 2022-05-[address] [facility] [facility] 14:06:00 [facility] VANCOMYCIN LEVEL, RANDOM 2022-05-[address] [facility] 14:06:00 [facility] BLOOD CULTURE 2022-05-[address] [facility] 14:05:00 [facility] CBC W/PLT COUNT & AUTO 2022-05-[address] [facility] DIFFERENTIAL 14:05:00 [facility] CBC W/PLT COUNT & AUTO 2022-05-[address] [facility] DIFFERENTIAL 14:05:00 [facility] ANTIBODY IDENTIFICATION 2022-05-[address] [facility] 13:51:00 [facility] POCT-GLUCOSE METER 2022-05-[address] [facility] 11:58:00 [facility] LACTIC ACID, ARTERIAL 2022-05-[address] [facility] 11:46:00 [facility] PREPARE RBC 2022-05-[address] [facility] 10:45:00 [facility] POCT-GLUCOSE METER 2022-05-[address] [facility] 08:45:00 [facility] TRANSFUSE LEUKO-REDUCED RED BLOOD 2022-05-[address] [facility] CELLS 07:45:00 [facility] ABORH, MANUAL 2022-05-[address] [facility] 06:44:00 [facility] DIRECT AHG (TIP)/DIRECT LURDES 2022-05-[address] [facility] 06:44:00 [facility] CBC W/PLT COUNT & AUTO 2022-05-[address] [facility] DIFFERENTIAL 06:36:00 [facility] RETICULOCYTE COUNT 2022-05-[address] [facility] 06:36:00 [facility] CBC W/PLT COUNT & AUTO 2022-05-[address] [facility] DIFFERENTIAL 06:36:00 [facility] PREALBUMIN 2022-05-[address] [facility] 05:26:00 [facility] TSH/FREE T4 IF INDICATED 2022-05-[address] [facility] 05:26:00 [facility] IMMUNOGLOBULIN G (IGG) 2022-05-[address] [facility] 05:26:00 [facility] CBC W/PLT COUNT & AUTO 2022-05-[address] [facility] DIFFERENTIAL 05:26:00 [facility] BASIC METABOLIC PANEL 2022-05-[address] [facility] 05:26:00 [facility] MAGNESIUM 2022-05-[address] [facility] 05:26:00 [facility] PHOSPHORUS 2022-05-[address] [facility] 05:26:00 [facility] HEPATIC FUNCTION PANEL 2022-05-[address] [facility] 05:26:00 [facility] PROTHROMBIN TIME/INR 2022-05-[address] [facility] 05:26:00 [facility] TACROLIMUS LEVEL 2022-05-[address] [facility] 05:26:00 [facility] HAPTOGLOBIN 2022-05-[address] [facility] 05:26:00 [facility] FERRITIN 2022-05-[address] [facility] 05:26:00 [facility] CBC W/PLT COUNT & AUTO 2022-05-[address] [facility] DIFFERENTIAL 05:26:00 [facility] (MANUAL DIFFERENTIAL) 2022-05-[address] [facility] 05:26:00 [facility] [place] PREPARE LEUKO-REDUCED RBC 2022-05-[address] [facility] 23:54:00 [facility] POCT-GLUCOSE METER 2022-05-27 Jordy, Dino Chirag [facility] 21:11:00 [facility] RESPIRATORY PANEL 2022-05-[address] [facility] 18:47:00 [facility] POCT-GLUCOSE METER 2022-05-27 Jordy, Dino Beard [facility] 17:01:00 [facility] POCT-GLUCOSE METER 2022-05-27 Jordy, Dino Chirag [facility] 12:07:00 [facility] POCT-GLUCOSE METER 2022-05-27 Jordy, Dino Chirag [facility] 07:34:00 [facility] BASIC METABOLIC PANEL 2022-05-[address] [facility] 06:11:00 [facility] MAGNESIUM 2022-05-[address] [facility] 06:11:00 [facility] PHOSPHORUS 2022-05-[address] [facility] 06:11:00 [facility] HEPATIC FUNCTION PANEL 2022-05-[address] [facility] 06:11:00 [facility] PROTHROMBIN TIME/INR 2022-05-[address] [facility] 06:11:00 [facility] TACROLIMUS LEVEL 2022-05-[address] [facility] 06:11:00 [facility] CBC W/PLT COUNT & AUTO 2022-05-[address] [facility] DIFFERENTIAL 00:58:00 [facility] CBC W/PLT COUNT & AUTO 2022-05-[address] [facility] DIFFERENTIAL 00:58:00 [facility] (CELLAVISION MANUAL DIFF) 2022-05-[address] [facility] 00:58:00 [facility] POCT-GLUCOSE METER 2022-05-[address] [facility] 21:31:00 [facility] TRANSFUSE LEUKO-REDUCED RED BLOOD 2022-05-[address] [facility] CE[facility] 18:06:00 [facility] POCT-GLUCOSE METER 2022-05-[address] [facility] 16:26:00 [facility] TRANSFUSE LEUKO-REDUCED RED BLOOD 2022-05-26 Kody, Kaylie Fowler [facility] CE[facility] 15:07:00 [facility] SARS-COV2/RT-PCR ([facility]) 2022-05-[address] [facility] 12:22:00 [facility] POCT-GLUCOSE METER 2022-05-[address] [facility] 11:53:00 [facility] BLOOD CULTURE 2022-05-26 Kody, Kaylie Fowler [facility] 11:13:00 [facility] HAPTOGLOBIN 2022-05-26 Kody, Kaylie Fowler [facility] 10:47:00 [facility] LACTATE DEHYDROGENASE (LDH) 2022-05-26 Kody, [facility] 10:47:00 [facility] FERRITIN 2022-05-26 Kody, Kaylie Fowler [facility] 10:47:00 [facility] BLOOD CULTURE 2022-05-[address] [facility] 10:46:00 [facility] XR CHEST 1 VIEW PORTABLE / BEDSIDE 2022-05-26 Kody, Kaylie Fowler [facility] 10:29:00 [facility] POCT-GLUCOSE METER 2022-05-[address] [facility] 07:57:00 [facility] CBC W/PLT COUNT & AUTO 2022-05-26 Deonan, Kaylie Fowler [facility] DIFFERENTIAL 07:56:00 [facility] RETICULOCYTE COUNT 2022-05-26 Kody, Kay[facility] Fowler [facility] 07:56:00 [facility] ABORH, MANUAL 2022-05-26 Deonan, Kaylie Borregoe [facility] 07:56:00 [facility] CBC W/PLT COUNT & AUTO 2022-05-26 Kody, Kaylie Borregoe [facility] DIFFERENTIAL 07:56:00 [facility] CBC W/PLT COUNT & AUTO 2022-05-[address] [facility] DIFFERENTIAL 05:42:00 [facility] BASIC METABOLIC PANEL 2022-05-[address] [facility] 05:42:00 [facility] MAGNESIUM 2022-05-26 Annieer, Mark [facility] 05:42:00 [facility] PHOSPHORUS 2022-05-26 Hickner, Mark [facility] 05:42:00 [facility] HEPATIC FUNCTION PANEL 2022-05-26 Hickner, Mark [facility] 05:42:00 [facility] PROTHROMBIN TIME/INR 2022-05-26 Hickner, Mark [facility] 05:42:00 [facility] TACROLIMUS LEVEL 2022-05-26 Mikekner, Mark [facility] 05:42:00 [facility] CBC W/PLT COUNT & AUTO 2022-05-[address] [facility] DIFFERENTIAL 05:42:00 [facility] POCT-GLUCOSE METER 2022-05-[address] [facility] 21:28:00 [facility] HEMODIALYSIS INPATIENT 2022-05-[address] [facility] 18:40:00 [facility] POCT-GLUCOSE METER 2022-05-25 [address] [facility] 17:40:00 [facility] POCT-GLUCOSE METER 2022-05-25 [address] [facility] 08:06:00 [facility] CBC W/PLT COUNT & AUTO 2022-05-[address] [facility] DIFFERENTIAL 05:18:00 [facility] BASIC METABOLIC PANEL 2022-05-[address] [facility] 05:18:00 [facility] MAGNESIUM 2022-05-[address] [facility] 05:18:00 [facility] PHOSPHORUS 2022-05-25 Mikekner, Mark [facility] 05:18:00 [facility] HEPATIC FUNCTION PANEL 2022-05-25 Devin, Mark [facility] 05:18:00 [facility] PROTHROMBIN TIME/INR 2022-05-25 Devin, Mark [facility] 05:18:00 [facility] TACROLIMUS LEVEL 2022-05-25 Mikekner, Mark [facility] 05:18:00 [facility] CBC W/PLT COUNT & AUTO 2022-05-[address] [facility] DIFFERENTIAL 05:18:00 [facility] POCT-GLUCOSE METER 2022-05-[address] [facility] 21:11:00 [facility] POCT-GLUCOSE METER 2022-05-[address] [facility] 17:42:00 [facility] SARS-COV2/RT-PCR ([facility]) 2022-05-[address] [facility] 12:59:00 [facility] CBC W/PLT COUNT & AUTO 2022-05-[address] [facility] DIFFERENTIAL 05:55:00 [facility] MAGNESIUM 2022-05-[address] [facility] 05:55:00 [facility] PHOSPHORUS 2022-05-[address] [facility] 05:55:00 [facility] HEPATIC FUNCTION PANEL 2022-05-[address] [facility] 05:55:00 [facility] PROTHROMBIN TIME/INR 2022-05-[address] [facility] 05:55:00 [facility] CALCIUM, IONIZED 2022-05-[address] [facility] 05:55:00 [facility] COMPREHENSIVE METABOLIC PANEL 2022-05-24 [address] [facility] 05:55:00 [facility] TACROLIMUS LEVEL 2022-05-[address] [facility] 05:55:00 [facility] CBC W/PLT COUNT & AUTO 2022-05-[address] [facility] DIFFERENTIAL 05:55:00 [facility] (CELLAVISION MANUAL DIFF) 2022-05-[address] [facility] 05:55:00 [facility] PREPARE LEUKO-REDUCED RBC 2022-05-[address] [facility] 23:54:00 [facility] PHOSPHORUS 2022-05-[address] [facility] 21:20:00 [facility] POCT-GLUCOSE METER 2022-05-[address] [facility] 16:08:00 [facility] PROTHROMBIN TIME/INR 2022-05-[address] [facility] 13:33:00 [facility] MAGNESIUM 2022-05-[address] [facility] 13:32:00 [facility] PHOSPHORUS 2022-05-[address] [facility] 13:32:00 [facility] HEPATIC FUNCTION PANEL 2022-05-[address] [facility] 13:32:00 [facility] COMPREHENSIVE METABOLIC PANEL 2022-05-23 Jam[address]id Quezada [facility] 13:32:00 [facility] POCT-GLUCOSE METER 2022-05-[address] [facility] 11:41:00 [facility] POCT-GLUCOSE METER 2022-05-[address] [facility] 11:14:00 [facility] HEMODIALYSIS INPATIENT 2022-05-[address] [facility] 09:50:23 [facility] POCT-GLUCOSE METER 2022-05-[address] [facility] 08:05:00 [facility] TACROLIMUS LEVEL 2022-05-[address] [facility] 05:20:00 [facility] CBC W/PLT COUNT & AUTO 2022-05-[address] [facility] DIFFERENTIAL 05:19:00 [facility] CBC W/PLT COUNT & AUTO 2022-05-[address] [facility] DIFFERENTIAL 05:19:00 [facility] (CELLAVISION MANUAL DIFF) 2022-05-[address] [facility] 05:19:00 [facility] POCT-GLUCOSE METER 2022-05-[address] [facility] 21:23:00 [facility] CBC W/PLT COUNT & AUTO 2022-05-[address] [facility] DIFFERENTIAL 18:41:00 [facility] CBC W/PLT COUNT & AUTO 2022-05-[address] [facility] DIFFERENTIAL 18:41:00 [facility] POCT-GLUCOSE METER 2022-05-[address] [facility] 17:33:00 [facility] ULTRAFILTRATION HD CRRT 2022-05-[address] [facility] 12:53:43 [facility] POCT-GLUCOSE METER 2022-05-[address] [facility] 10:52:00 [facility] 2D ECHO W/ DOPPLER (CW/PW/COLOR) 2022-05-[address] [facility] 10:14:13 [facility] TRANSFUSE LEUKO-REDUCED RED BLOOD 2022-05-[address] [facility] CELLS 09:15:00 [facility] POCT-GLUCOSE METER 2022-05-[address] [facility] 07:26:00 [facility] CBC W/PLT COUNT & AUTO 2022-05-22 [facility] Carlyle [facility] DIFFERENTIAL 06:34:00 [facility] CBC W/PLT COUNT & AUTO 2022-05-22 [facility], Carlyle [facility] DIFFERENTIAL 06:34:00 [facility] (CELLAVISION MANUAL DIFF) 2022-05-[address] [facility] 06:34:00 [facility] TYPE AND SCREEN, AUTOMATED 2022-05-22 Doris Mensah [facility] 05:37:00 [facility] CBC W/PLT COUNT & AUTO 2022-05-[address] [facility] [place] [facility] DIFFERENTIAL 04:31:00 [facility] MAGNESIUM 2022-05-[address] [facility] 04:31:00 [facility] PHOSPHORUS 2022-05-[address] [facility] 04:31:00 [facility] HEPATIC FUNCTION PANEL 2022-05-[address] [facility] [place] [facility] 04:31:00 [facility] PROTHROMBIN TIME/INR 2022-05-[address] [facility] 04:31:00 [facility] CALCIUM, IONIZED 2022-05-[address] [facility] 04:31:00 [facility] COMPREHENSIVE METABOLIC PANEL 2022-05-22 Jamshid Quezada [facility] 04:31:00 [facility] TACROLIMUS LEVEL 2022-05-[address] [facility] 04:31:00 [facility] CBC W/PLT COUNT & AUTO 2022-05-[address] [facility] [place] [facility] DIFFERENTIAL 04:31:00 [facility] (CELLAVISION MANUAL DIFF) 2022-05-[address] [facility] 04:31:00 [facility] POCT-GLUCOSE METER 2022-05-[address] [facility] 22:51:00 [facility] POCT-GLUCOSE METER 2022-05-[address] [facility] 16:28:00 [facility] HEMODIALYSIS INPATIENT 2022-05-[address] [place] [facility] 12:25:00 [facility] SARS-COV2/RT-PCR (HS & REF LABS) 2022-05-[address] [facility] 11:39:00 [facility] POCT-GLUCOSE METER 2022-05-[address] [facility] 11:09:00 [facility] POCT-GLUCOSE METER 2022-05-[address] [facility] 08:30:00 [facility] PREALBUMIN 2022-05-[address] [facility] 03:28:00 [facility] TSH/FREE T4 IF INDICATED 2022-05-[address] [facility] 03:28:00 [facility] IMMUNOGLOBULIN G (IGG) 2022-05-[address] [facility] 03:28:00 [facility] VANCOMYCIN LEVEL, RANDOM 2022-05-[address] 03:28:00 [facility] TACROLIMUS LEVEL 2022-05-[address] [facility] 03:28:00 [facility] CBC W/PLT COUNT & AUTO 2022-05-[address] [facility] DIFFERENTIAL 03:28:00 [facility] BASIC METABOLIC PANEL 2022-05-[address] [facility] 03:28:00 [facility] MAGNESIUM 2022-05-[address] [facility] 03:28:00 [facility] PHOSPHORUS 2022-05-[address] [facility] 03:28:00 [facility] HEPATIC FUNCTION PANEL 2022-05-[address] [facility] 03:28:00 [facility] PROTHROMBIN TIME/INR 2022-05-[address] [facility] 03:28:00 [facility] CBC W/PLT COUNT & AUTO 2022-05-[address] [facility] DIFFERENTIAL 03:28:00 [facility] (CELLAVISION MANUAL DIFF) 2022-05-[address] [facility] 03:28:00 [facility] POCT-GLUCOSE METER 2022-05-20 [address]ag [facility] 20:23:00 [facility] POCT-GLUCOSE METER 2022-05-20 Jordy D[address] [facility] 16:25:00 [facility] CBC W/PLT COUNT & AUTO 2022-05-20 Mofor, Loyce [facility] DIFFERENTIAL 13:07:00 [facility] CBC W/PLT COUNT & AUTO 2022-05-20 [facility] Loyce [facility] DIFFERENTIAL 13:07:00 [facility] VANCOMYCIN LEVEL, RANDOM 2022-05-20 Mofor, Loyce [facility] 11:52:00 [facility] POCT-GLUCOSE METER 2022-05-20 [address]ag [facility] 11:16:00 [facility] POCT-GLUCOSE METER 2022-05-20 Dino Spence [address]irag [facility] 06:06:00 [facility] CALCIUM, IONIZED 2022-05-[address] [facility] 03:04:00 [facility] COMPREHENSIVE METABOLIC PANEL 2022-05-20 Jamshid Quezada [facility] 03:04:00 [facility] MAGNESIUM 2022-05-[address] [facility] 03:04:00 [facility] PHOSPHORUS 2022-05-[address] [facility] 03:04:00 [facility] CBC W/PLT COUNT & AUTO 2022-05-[address] [facility] DIFFERENTIAL 03:04:00 [facility] IRON, TIBC, % SAT. (WITHOUT 2022-05-[address] [facility] FERRITIN) 03:04:00 [facility] FERRITIN 2022-05-[address] [facility] 03:04:00 [facility] RETICULOCYTE COUNT 2022-05-[address] [facility] 03:04:00 [facility] TACROLIMUS LEVEL 2022-05-[address] [facility] 03:04:00 [facility] CBC W/PLT COUNT & AUTO 2022-05-20 Quezada, Jamshid [facility] DIFFERENTIAL 03:04:00 [facility] (CELLAVISION MANUAL DIFF) 2022-05-[address] [facility] 03:04:00 [facility] POCT-GLUCOSE METER 2022-05-19 Jordy [address]ag [facility] 23:14:00 [facility] POCT-GLUCOSE METER 2022-05-[address] [facility] 21:10:00 [facility] POCT-GLUCOSE METER 2022-05-19 [address] [facility] 17:44:00 [facility] BLOOD CULTURE 2022-05-[address] [facility] 15:51:[address] [facility] [address] BRAIN WITHOUT IV CONTRAST 2022-05-19 Mofor, Tyrayce [facility] 11:25:00 [facility] BLOOD GAS, ARTERIAL 2022-05-[address] [facility] 03:32:00 [facility] CALCIUM, IONIZED 2022-05-[address] [facility] 03:32:00 [facility] MAGNESIUM 2022-05-[address] [facility] 03:32:00 [facility] PHOSPHORUS 2022-05-[address] [facility] 03:32:00 [facility] HEPATIC FUNCTION PANEL 2022-05-[address] [facility] 03:32:00 [facility] CBC W/PLT COUNT & AUTO 2022-05-[address] [facility] DIFFERENTIAL 03:32:00 [facility] PROTHROMBIN TIME/INR 2022-05-[address] [facility] 03:32:00 [facility] APTT 2022-05-[address] [facility] 03:32:00 [facility] COMPREHENSIVE METABOLIC PANEL 2022-05-19 Jamshid [address] [facility] 03:32:00 [facility] TACROLIMUS LEVEL 2022-05-[address] [facility] 03:32:00 [facility] CBC W/PLT COUNT & AUTO 2022-05-[address] [facility] DIFFERENTIAL 03:32:00 [facility] XR CHEST 1 VIEW PORTABLE / BEDSIDE 2022-05-18 Edison, Cindy [facility] 17:33:00 [facility] POCT-GLUCOSE METER 2022-05-[address] [facility] 17:33:00 [facility] CBC W/PLT COUNT & AUTO 2022-05-[address] [facility] DIFFERENTIAL 14:41:00 [facility] CBC W/PLT COUNT & AUTO 2022-05-[address] [facility] DIFFERENTIAL 14:41:00 [facility] HEMODIALYSIS INPATIENT 2022-05-[address] [facility] 12:51:31 [facility] POCT-GLUCOSE METER 2022-05-18 [address]ordy [address]ag [facility] 11:17:00 [facility] POCT-GLUCOSE METER 2022-05-[address] [facility] 09:06:00 [facility] TACROLIMUS LEVEL 2022-05-[address] [facility] 05:43:00 [facility] BLOOD GAS, ARTERIAL 2022-05-[address] [facility] 03:51:00 [facility] BASIC METABOLIC PANEL 2022-05-[address] [facility] 03:11:00 [facility] CALCIUM, IONIZED 2022-05-[address] [facility] 03:11:00 [facility] MAGNESIUM 2022-05-[address] [facility] 03:11:00 [facility] PHOSPHORUS 2022-05-[address] [facility] 03:11:00 [facility] HEPATIC FUNCTION PANEL 2022-05-[address] [facility] 03:11:00 [facility] CBC W/PLT COUNT & AUTO 2022-05-[address] [facility] DIFFERENTIAL 03:11:00 [facility] PROTHROMBIN TIME/INR 2022-05-[address] [facility] 03:11:00 [facility] APTT 2022-05-[address] [facility] 03:11:00 [facility] CBC W/PLT COUNT & AUTO 2022-05-[address] [facility] DIFFERENTIAL 03:11:00 [facility] XR CHEST 1 VIEW PORTABLE / BEDSIDE 2022-05-18 Edison, Cindy [facility] 00:21:00 [facility] PREPARE RBC 2022-05-17 Jordy, Dino Josephn [facility] 23:54:00 [facility] PREPARE PLASMA 2022-05-17 Jordy, Dino Josephn [facility] 23:54:00 [facility] PREPARE PLATELETS 2022-05-17 Jordy, Dino Josephn [facility] 23:54:00 [facility] PREPARE CRYOPRECIPITATE 2022-05-17 Jordy, Dino Josephn [facility] 23:54:00 [facility] POCT-GLUCOSE METER 2022-05-17 Jordy, Dino Chirag [facility] 23:25:00 [facility] POCT-GLUCOSE METER 2022-05-17 Jordy, Dino Chirag [facility] 17:56:00 [facility] AMMONIA 2022-05-[address] [facility] 14:30:00 [facility] BLOOD GAS, ARTERIAL 2022-05-17 Edison, Cindy [facility] 14:12:00 [facility] CBC (HEMOGRAM ONLY) 2022-05-17 Edison, Cindy [facility] 14:10:00 [facility] COMPREHENSIVE METABOLIC PANEL 2022-05-17 Edison, Cindy [facility] 14:10:00 [facility] POCT-GLUCOSE METER 2022-05-17 Jordy, Dino Chirag [facility] 12:03:00 [facility] POCT-GLUCOSE METER 2022-05-17 Jordy, Dino Chirag [facility] 09:14:00 [facility] POCT-GLUCOSE METER 2022-05-17 Dino Spence [address]irag [facility] 06:45:00 [facility] BLOOD GAS, ARTERIAL 2022-05-[address] [facility] 06:41:00 [facility] POCT-GLUCOSE METER 2022-05-17 Jordy, Dino Chirag [facility] 04:54:00 [facility] BLOOD GAS, ARTERIAL 2022-05-[address] [facility] 04:48:00 [facility] TACROLIMUS LEVEL 2022-05-[address] [facility] 04:47:00 [facility] POCT-GLUCOSE METER 2022-05-17 Jordy, Dino Chirag [facility] 04:00:00 [facility] POCT-GLUCOSE METER 2022-05-17 [place], Dino Chirag [facility] 02:20:00 [facility] BASIC METABOLIC PANEL 2022-05-17 Damien, Jamshid [facility] 02:14:00 [facility] MAGNESIUM 2022-05-[address] [facility] 02:14:00 [facility] PHOSPHORUS 2022-05-17 Quezada, Jamshid [facility] 02:14:00 [facility] CALCIUM, IONIZED 2022-05-17 Quezada, Jamshid [facility] 02:14:00 [facility] BLOOD GAS, ARTERIAL 2022-05-[address] [facility] 02:14:00 [facility] HEPATIC FUNCTION PANEL 2022-05-[address] [facility] 02:14:00 [facility] CBC W/PLT COUNT & AUTO 2022-05-[address] [facility] DIFFERENTIAL 02:14:00 [facility] PROTHROMBIN TIME/INR 2022-05-[address] [facility] 02:14:00 [facility] APTT 2022-05-[address] [facility] 02:14:00 [facility] CBC W/PLT COUNT & AUTO 2022-05-[address] [facility] DIFFERENTIAL 02:14:00 [facility] XR CHEST 1 VIEW PORTABLE / BEDSIDE 2022-05-[address] [facility] 01:41:00 [facility] POCT-GLUCOSE METER 2022-05-[address] [facility] 22:50:00 [facility] BLOOD GAS, ARTERIAL 2022-05-[address] [facility] 22:46:00 [facility] RRL CRITICAL LABS 2022-05-16 Royal, Lorenzo [facility] (ABG,NA,K,H&H,GLUCOSE) 20:21:00 Medical enter CALCIUM, IONIZED 2022-05-16 Royal, Lorenzo [facility] 20:21:00 [facility] LACTIC ACID, ARTERIAL 2022-05-16 Royal, Lorenzo [facility] 20:21:00 [facility] BLOOD GAS, ARTERIAL 2022-05-16 Royal, Lorenzo [facility] 20:21:00 [facility] SODIUM NA-STAT LAB 2022-05-16 Royal, Lorenzo [facility] 20:21:00 [facility] POTASSIUM-STAT LAB 2022-05-16 Royal, Lorenzo [facility] 20:21:00 [facility] GLUCOSE-STAT LAB 2022-05-16 Royal, Lorenzo [facility] 20:21:00 [facility] HGB/HCT (H&H) - STAT LAB 2022-05-16 Royal, Lorenzo [facility] 20:21:00 [facility] PH, ARTERIAL 2022-05-[address] [facility] 20:21:00 [facility] POCT-GLUCOSE METER 2022-05-16 Dino Spence [facility] 18:32:00 [facility] RRL CRITICAL LABS 2022-05-16 Magdalena Boyd [facility] (ABG,NA,K,H&H,GLUCOSE) 17:08:00 [facility] LACTIC ACID, ARTERIAL 2022-05-16 Magdalena Boyd [facility] 17:08:00 [facility] BLOOD GAS, ARTERIAL 2022-05-[address] [facility] 17:08:00 [facility] SODIUM NA-STAT LAB 2022-05-[address] [facility] [facility] 17:08:00 [facility] POTASSIUM-STAT LAB 2022-05-[address] [facility] 17:08:00 [facility] GLUCOSE-STAT LAB 2022-05-[address] [facility] 17:08:00 [facility] HGB/HCT (H&H) - STAT LAB 2022-05-[address] [facility] 17:08:00 [facility] POCT-GLUCOSE METER 2022-05-[address] [facility] 16:23:00 [facility] XR CHEST 1 VIEW PORTABLE / BEDSIDE 2022-05-[address] [facility] 15:22:00 [facility] SODIUM NA-STAT LAB 2022-05-[address] [facility] 15:04:00 [facility] POTASSIUM-STAT LAB 2022-05-[address] [facility] 15:04:00 [facility] GLUCOSE-STAT LAB 2022-05-[address] [facility] 15:04:00 [facility] HGB/HCT (H&H) - STAT LAB 2022-05-[address] [facility] 15:04:00 [facility] BASIC METABOLIC PANEL 2022-05-[address] [facility] 15:04:00 [facility] MAGNESIUM 2022-05-[address] [facility] 15:04:00 [facility] PHOSPHORUS 2022-05-[address] [facility] 15:04:00 [facility] BLOOD GAS, ARTERIAL 2022-05-16 Placement Director, Magdalena [facility] 15:03:00 [facility] CALCIUM, IONIZED 2022-05-[address] [facility] 15:00:00 [facility] CBC (HEMOGRAM ONLY) 2022-05-[address] [facility] [facility] 15:00:00 [facility] OXYGEN SATURATION, MEASURED 2022-05-[address] [facility] 15:00:00 [facility] LACTIC ACID, ARTERIAL 2022-05-16 Oliver Magdalena [facility] 15:00:00 [facility] PT/APTT 2022-05-16 Oliver, Magdalena [facility] 15:00:00 [facility] FIBRINOGEN 2022-05-[address] [facility] [facility] 15:00:00 [facility] RRL CRITICAL LABS 2022-05-16 Tremayne, Tomy Nichols [facility] (ABG,NA,K,H&H,GLUCOSE) 13:42:47 [facility] enter CALCIUM, IONIZED 2022-05-16 Tremayne Tomy Nichols [facility] 13:42:47 [facility] BLOOD GAS, ARTERIAL 2022-05-16 Tremayne, Tomy Nichols [facility] 13:42:47 [facility] SODIUM NA-STAT LAB 2022-05-16 Tremayne Tomy Nichols [facility] 13:42:47 [facility] POTASSIUM-STAT LAB 2022-05-16 Tremayne, Tomy Nichols [facility] 13:42:47 [facility] GLUCOSE-STAT LAB 2022-05-16 Tremayne, Tomy Nichols [facility] 13:42:47 [facility] HGB/HCT (H&H) - STAT LAB 2022-05-16 Tremayne, Tomy Nichols [facility] 13:42:47 [facility] PREPARE CRYOPRECIPITATE 2022-05-16 Dino Spence Chirag [facility] 13:29:00 [facility] TRANSFUSE LEUKO-REDUCED PLATELETS 2022-05-16 Tremayne, Tomy Nichols [facility] 13:14:00 [facility] RRL CRITICAL LABS 2022-05-16 Tremayne, Tomy Nichols [facility] (ABG,NA,K,H&H,GLUCOSE) 13:13:32 [facility] enter CALCIUM, IONIZED 2022-05-16 Tremayne, Tomy Nichols [facility] 13:13:32 [facility] BLOOD GAS, ARTERIAL 2022-05-16 Tremayne, Tomy [facility] 13:13:32 [facility] SODIUM NA-STAT LAB 2022-05-16 Tremayne, Tomy Nichols [facility] 13:13:32 [facility] POTASSIUM-STAT LAB 2022-05-16 Tremayne, Tomy Nichols [facility] 13:13:32 [facility] GLUCOSE-STAT LAB 2022-05-16 Tremayne, Tomy Nichols [facility] 13:13:32 [facility] HGB/HCT (H&H) - STAT LAB 2022-05-16 Tremayne, Tomy Nichols [facility] 13:13:32 [facility] TRANSFUSE LEUKO-REDUCED RED BLOOD 2022-05-16 Tremayne, Tomy [facility] 12:58:00 [facility] TRANSFUSE LEUKO-REDUCED RED BLOOD 2022-05-16 Tremayne, Tomy Nichols [facility] CELLS 12:57:00 [facility] TRANSFUSE PLASMA 2022-05-16 Tremayne, Tomy Nichols [facility] 12:50:00 [facility] PROTHROMBIN TIME/INR 2022-05-16 Tremayne, Tomy Nichols [facility] 12:38:08 [facility] APTT 2022-05-16 Tremayne, Tomy Nichols [facility] 12:38:08 [facility] FIBRINOGEN 2022-05-16 Tremayne, Tomy Nichols [facility] 12:38:08 [facility] PLATELET COUNT 2022-05-16 Tremayne, Tomy Nichols [facility] 12:38:08 [facility] RRL CRITICAL LABS 2022-05-16 Tremayne, Tomy [facility] (ABG,NA,K,H&H,GLUCOSE) 12:38:08 [facility] enter CALCIUM, IONIZED 2022-05-16 Tremayne, Tomy Nichols [facility] 12:38:08 [facility] BLOOD GAS, ARTERIAL 2022-05-16 [facility], Tomy Nichols [facility] 12:38:08 [facility] SODIUM NA-STAT LAB 2022-05-16 Tremayne, Tomy Nichols [facility] [place] [facility] 12:38:08 [facility] POTASSIUM-STAT LAB 2022-05-16 Tremayne, Tomy Nichols [facility] 12:38:08 [facility] GLUCOSE-STAT LAB 2022-05-16 [facility], Tomy Nichols [facility] 12:38:08 [facility] HGB/HCT (H&H) - STAT LAB 2022-05-16 [facility], Tomy Nichols [facility] 12:38:08 [facility] TRANSFUSE CRYOPRECIPITATE 2022-05-16 Tremayne, Tomy Nichols [facility] 12:24:00 [facility] TRANSFUSE LEUKO-REDUCED PLATELETS 2022-05-16 Tremayne, Tomy Nichols [facility] 12:07:00 [facility] RRL CRITICAL LABS 2022-05-16 [facility],K,[facility]&H,GLUCOSE) 11:57:12 [facility] enter CALCIUM, IONIZED 2022-05-16 Tremayne, Tomy Nichols [facility] 11:57:12 [facility] BLOOD GAS, ARTERIAL 2022-05-16 Tremayne, Tomy Nichols [facility] 11:57:12 [facility] SODIUM NA-STAT LAB 2022-05-16 Tremayne, Tomy Nichols [facility] 11:57:12 [facility] POTASSIUM-STAT LAB 2022-05-16 Tremayne, Tomy Nichols [facility] 11:57:12 [facility] GLUCOSE-STAT LAB 2022-05-16 Tremayne, Tomy Nichols [facility] 11:57:12 [facility] HGB/HCT (H&H) - STAT LAB 2022-05-16 [facility], Tomy Nichols [facility] 11:57:12 [facility] TRANSFUSE PLASMA 2022-05-16 Tremayne, Tomy Nichols [facility] 11:53:00 [facility] TRANSFUSE LEUKO-REDUCED RED BLOOD 2022-05-16 Tremayne, Tomy Esposito CELLS 11:47:00 [facility] TRANSFUSE LEUKO-REDUCED PLATELETS 2022-05-16 Tremayne, Tomy [facility] 11:43:00 [facility] TRANSFUSE CRYOPRECIPITATE 2022-05-16 Tremayne, T[facility] Nichols [facility] 11:43:00 [facility] TRANSFUSE PLASMA 2022-05-16 Tremayne, Tomy [facility] 11:28:00 [facility] RRL CRITICAL LABS 2022-05-16 Tremayne, Tomy [facility] (ABG,NA,K,H&H,GLUCOSE) 11:25:08 [facility] enter CALCIUM, IONIZED 2022-05-16 Tremayne, Tomy [facility] 11:25:08 [facility] BLOOD GAS, ARTERIAL 2022-05-16 Tremayne, Tomy Nichols [facility] 11:25:08 [facility] SODIUM NA-STAT LAB 2022-05-16 Tremayne, Tomy [facility] [place] [facility] 11:25:08 [facility] POTASSIUM-STAT LAB 2022-05-16 Tremayne, Tomy Nichols [facility] 11:25:08 [facility] GLUCOSE-STAT LAB 2022-05-16 Tremayne, Tomy Nichols [facility] 11:25:08 [facility] HGB/HCT (H&H) - STAT LAB 2022-05-16 Tremayne, Tomy [facility] 11:25:08 [facility] RRL CRITICAL LABS 2022-05-16 Tremayne, Tomy [place] es (ABG,NA,K,H&H,GLUCOSE) 10:59:53 [facility] enter CALCIUM, IONIZED 2022-05-16 Tremayne, Tomy Nichols [facility] 10:59:53 [facility] BLOOD GAS, ARTERIAL 2022-05-16 Tremayne, Tomy Nichols [facility] 10:59:53 [facility] SODIUM NA-STAT LAB 2022-05-16 Tremayne, Tomy [facility] [place] [facility] 10:59:53 [facility] POTASSIUM-STAT LAB 2022-05-16 Tremayne, Tomy Nichols [facility] 10:59:53 [facility] GLUCOSE-STAT LAB 2022-05-16 Tremayne, Tomy Nichols [facility] 10:59:53 [facility] HGB/HCT (H&H) - STAT LAB 2022-05-16 Tremayne, Tomy Nichols [facility] 10:59:53 [facility] PROTHROMBIN TIME/INR 2022-05-16 Tremayne, Tomy [facility] 10:46:23 [facility] APTT 2022-05-16 Tremayne, Tomy [facility] 10:46:23 [facility] FIBRINOGEN 2022-05-16 Tremayne, Tomy Nichols [facility] 10:46:23 [facility] PLATELET COUNT 2022-05-16 Tremayne, Tomy [facility] 10:46:23 [facility] RRL CRITICAL LABS 2022-05-16 Tremayne, Tomy [facility] (ABG,NA,K,H&H,GLUCOSE) 10:26:01 [facility] enter CALCIUM, IONIZED 2022-05-16 Tremayne, Tomy Nichols [facility] 10:26:01 [facility] BLOOD GAS, ARTERIAL 2022-05-16 Tremayne, Tomy Nichols [facility] 10:26:01 [facility] SODIUM NA-STAT LAB 2022-05-16 Tremayne, Tomy Nichols [facility] 10:26:01 [facility] POTASSIUM-STAT LAB 2022-05-16 Tremayne, Tomy Nichols [facility] 10:26:01 [facility] GLUCOSE-STAT LAB 2022-05-16 Tremayne, Tomy [facility] 10:26:01 [facility] HGB/HCT (H&H) - STAT LAB 2022-05-16 Tremayne, Tomy Nichols [facility] 10:26:01 [facility] TISSUE EXAM 2022-05-[address] [facility] 10:25:00 [facility] TRANSFUSE LEUKO-REDUCED RED BLOOD 2022-05-16 Tremayne, Tomy Nichols [facility] CELLS 09:59:00 [facility] TRANSFUSE PLASMA 2022-05-16 Tremayne, Tomy Nichols [facility] 09:59:00 [facility] TRANSFUSE PLASMA 2022-05-16 Tremayne, Tomy Nichols [facility] 09:40:00 [facility] TRANSFUSE LEUKO-REDUCED RED BLOOD 2022-05-16 Tremayne, Tomy Nichols [facility] CELLS 09:31:00 [facility] TRANSFUSE PLASMA 2022-05-16 Tremayne, Tomy Nichols [facility] 09:29:00 [facility] TRANSFUSE PLASMA 2022-05-16 Tremayne, Tomy Nichols [facility] 09:19:00 [facility] RRL CRITICAL LABS 2022-05-16 Tremayne, Tomy [facility] (ABG,NA,K,H&H,GLUCOSE) 09:18:25 [facility] enter CALCIUM, IONIZED 2022-05-16 Tremayne, Tomy Nichols [facility] 09:18:25 [facility] BLOOD GAS, ARTERIAL 2022-05-16 Tremayne, Tomy Nichols [facility] 09:18:25 [facility] SODIUM NA-STAT LAB 2022-05-16 Tremayne, Tomy Nichols [facility] 09:18:25 [facility] POTASSIUM-STAT LAB 2022-05-16 Tremayne, Tomy Nichols [facility] 09:18:25 [facility] GLUCOSE-STAT LAB 2022-05-16 Tremayne, Tomy Nichols [facility] 09:18:25 [facility] HGB/HCT (H&H) - STAT LAB 2022-05-16 Tremayne, Tomy Nichols [facility] 09:18:25 [facility] RRL CRITICAL LABS 2022-05-16 Tremayne, Tomy [facility] (ABG,NA,K,H&H,GLUCOSE) 09:06:11 [facility] enter CALCIUM, IONIZED 2022-05-16 Tremayne, Tomy Nichols [facility] 09:06:11 [facility] BLOOD GAS, ARTERIAL 2022-05-16 Tremayne, Tomy Nichols [facility] 09:06:11 [facility] SODIUM NA-STAT LAB 2022-05-16 Tremayne, Tomy Nichols [facility] 09:06:11 [facility] POTASSIUM-STAT LAB 2022-05-16 Tremayne, Tomy Nichols [facility] 09:06:11 [facility] GLUCOSE-STAT LAB 2022-05-16 Tremayne, Tomy Nichols [facility] 09:06:11 [facility] HGB/HCT (H&H) - STAT LAB 2022-05-16 Tremayne, Tomy Nichols [facility] 09:06:11 [facility] TRANSFUSE LEUKO-REDUCED RED BLOOD 2022-05-16 Tremayne, Tomy Nichols [facility] CELLS 08:55:00 [facility]RL CRITICAL LABS 2022-05-16 Tremayne, Tomy Martinez Maricruz es (ABG,NA,K,H&H,GLUCOSE) 08:42:55 Medical C enter CALCIUM, IONIZED 2022-05-16 Tremayne, Tomy Nichols [facility] 08:42:55 [facility] BLOOD GAS, ARTERIAL 2022-05-16 Tremayne, Tomy Martinez [facility] 08:42:55 [facility] SODIUM NA-STAT LAB 2022-05-16 Tremayne, Tomy Nichols [facility] kes 08:42:55 [facility] POTASSIUM-STAT LAB 2022-05-16 Tremayne, Tomy Nichols [facility] kes 08:42:55 [facility] GLUCOSE-STAT LAB 2022-05-16 Tremayne, Tomy Nichols [facility] 08:42:55 [facility] HGB/HCT (H&H) - STAT LAB 2022-05-16 Tremayne, [facility] 08:42:55 [facility] TRANSFUSE LEUKO-REDUCED RED BLOOD 2022-05-16 Tremayne, Tomy Esposito CELLS 08:40:00 [facility] TRANSFUSE PLASMA 2022-05-16 [facility]remayne, Tmoy [facility] 08:39:00 [facility] RRL CRITICAL LABS 2022-05-16 [facility], Tomy Trivedik es (ABG,NA,K,H&H,GLUCOSE) 08:15:19 [facility] enter CALCIUM, IONIZED 2022-05-16 Tremayne, Tomy Nichols [facility] 08:15:19 [facility] BLOOD GAS, ARTERIAL 2022-05-16 Tremayne, [facility] Nichols [facility] 08:15:19 [facility] SODIUM NA-STAT LAB 2022-05-16 Tremayne, T[facility] Nichols [facility] 08:15:19 [facility] POTASSIUM-STAT LAB 2022-05-16 Tremayne, Tomy Nichols [facility] 08:15:19 [facility] GLUCOSE-STAT LAB 2022-05-16 Tremayne, T[facility] Nichols [facility] 08:15:19 [facility] HGB/HCT (H&H) - STAT LAB 2022-05-16 Tremayne, Tomy Nichols [facility] 08:15:19 [facility] FUNGUS CULTURE + SMEAR 2022-05-16 Dino Spence [facility] 07:57:00 [facility] BODY FLUID CULTURE + GRAM STAIN 2022-05-[address] [facility] 07:57:00 [facility] ANAEROBIC CULTURE 2022-05-[address] [facility] 07:57:00 [facility] AFB CULTURE + SMEAR (NON-SPUTUM) 2022-05-[address] [facility] [facility] 07:57:00 [facility] RRL CRITICAL LABS 2022-05-16 Tremayne, [facility] Nichols [facility] (ABG,NA,K,H&H,GLUCOSE) 07:54:16 [facility] enter BLOOD GAS, ARTERIAL 2022-05-16 Tremayne, Tomy Nichols [facility] 07:54:16 [facility] SODIUM NA-STAT LAB 2022-05-16 [place]remayne, Tomy [facility] [place] [facility] 07:54:16 [facility] POTASSIUM-STAT LAB 2022-05-16 Tremayne, Tomy Nichols [facility] 07:54:16 [facility] GLUCOSE-STAT LAB 2022-05-16 Tremayne, Tomy Nichols [facility] 07:54:16 [facility] HGB/HCT (H&H) - STAT LAB 2022-05-16 Tremayne, Tomy Nichols [facility] 07:54:16 [facility] TRANSFUSE LEUKO-REDUCED RED BLOOD 2022-05-16 Tremayne, [facility] CE[facility] 07:53:00 [facility] TRANSFUSE LEUKO-REDUCED RED BLOOD 2022-05-[address] [facility] CELLS 07:48:00 [facility] TRANSFUSE PLASMA 2022-05-16 Tremayne, Tomy Nichols [facility] 07:47:00 [facility] TRANSPLANT, LIVER 2022-05-[address] [facility] 06:37:00 [facility] COMPREHENSIVE METABOLIC PANEL 2022-05-[address] [facility] 03:50:00 [facility] MAGNESIUM 2022-05-[address] [facility] 03:50:00 [facility] PROTHROMBIN TIME/INR 2022-05-[address] [facility] 03:50:00 [facility] CBC W/PLT COUNT & AUTO 2022-05-16 [facility] 03:50:00 [facility] CBC W/PLT COUNT & AUTO 2022-05-[address] [facility] DIFFERENTIAL 03:50:00 [facility] PREPARE LEUKO-REDUCED RBC 2022-05-15 Dal[facility]rena [facility] 23:54:00 [facility] TYPE AND SCREEN, AUTOMATED 2022-05-[address] [facility] 13:41:00 [facility] HEMODIALYSIS INPATIENT 2022-05-[address] [facility] 08:44:20 [facility] CALCIUM, IONIZED 2022-05-[address] [facility] 03:55:00 [facility] COMPREHENSIVE METABOLIC PANEL 2022-05-15 Jam[address] [facility] 03:55:00 [facility] MAGNESIUM 2022-05-[address] [facility] 03:55:00 [facility] PHOSPHORUS 2022-05-[address] [facility] 03:55:00 [facility] CBC W/PLT COUNT & AUTO 2022-05-[address] [facility] DIFFERENTIAL 03:55:00 [facility] FIBRINOGEN 2022-05-[address] [facility] 03:55:00 [facility] PROTHROMBIN TIME/INR 2022-05-[address] [facility] 03:55:00 [facility] CBC W/PLT COUNT & AUTO 2022-05-[address] [facility] DIFFERENTIAL 03:55:00 [facility] PREPARE LEUKO-REDUCED RBC 2022-05-14 [facility] 23:54:00 [facility] PREPARE CRYOPRECIPITATE 2022-05-[address] [facility] 23:54:00 [facility] PREPARE LEUKO-REDUCED PLATELETS 2022-05-[address] [facility] 23:54:00 [facility] HEMOGLOBIN AND HEMATOCRIT 2022-05-14 Stephanie [facility] 20:37:00 [facility] TRANSFUSE LEUKO-REDUCED RED BLOOD 2022-05-[address] [facility] CELLS 16:50:00 [facility] ECG 12-LEAD 2022-05-14 Unknown, [facility] Doctor [facility] 15:20:28 [facility] ECG 12-LEAD 2022-05-14 Unknown, [facility] 15:20:28 [facility] ECG 12-LEAD 2022-05-14 Unknown, [facility] 15:20:28 [facility] HC LAB HIV-1 AG W/HIV-1&2 AB 2022-05-14 Jordy, Dino Beard [facility] 13:38:00 [facility] HEPATITIS B PANEL 2022-05-14 Jordy, Dino [facility]n [facility] 13:38:00 [facility] HEPATITIS C ANTIBODY 2022-05-14 Jordy, [facility]ino [facility] 13:38:00 [facility] TSH 2022-05-14 [place], Dino Chirag [facility] 13:38:00 [facility] T3 2022-05-14 Jordy, Dino Josephn [facility] 13:38:00 [facility] T4 2022-05-14 Jordy, Dino Josephn [facility] 13:38:00 [facility] BASIC METABOLIC PANEL 2022-05-14 Jordy, Dino Josephn [facility] 13:38:00 [facility] MAGNESIUM 2022-05-14 Jordy, [facility]ino [facility] 13:38:00 [facility] PHOSPHORUS 2022-05-14 Jordy, Dino Chirag [facility] 13:38:00 [facility] HEPATIC FUNCTION PANEL 2022-05-14 Jordy, Dino Josephn [facility] 13:38:00 [facility] GAMMA GLUTAMYL TRANSFERASE (GGT) 2022-05-14 Jordy, Dino Josephn [facility] 13:38:00 [facility] CYTOMEGALOVIRUS ANTIBODY, IGG 2022-05-14 Jordy Dino Josephn [facility] 13:38:00 [facility] PROTHROMBIN TIME/INR 2022-05-14 Jord[address] [facility] 13:38:00 [facility] APTT 2022-05-14 Jordy, Dino Chirag [facility] 13:38:00 [facility] HEPATITIS C PCR, QUANTITATIVE 2022-05-[address] [facility] 13:37:00 [facility] HEPATITIS B PCR, QUANTITATIVE 2022-05-14 Jordy Dino Josephn [facility] 13:37:00 [facility] STAT-LAB IONIZED CALCIUM 2022-05-14 Jordy, Dino Josephn [facility] 13:36:00 [facility] SARS-COV2/RT-PCR ([facility] & REF LABS) 2022-05-[address] [facility] 13:00:00 [facility] XR CHEST 1 VIEW PORTABLE / BEDSIDE 2022-05-[address] [facility] 12:32:00 [facility] POCT-GLUCOSE METER 2022-05-[address] [facility] 11:10:00 [facility] REPORT OF PROCEDURE - ENDOSCOPY 2022-05-[address] [facility] URL 10:52:03 [facility] PREPARE RBC 2022-05-[address] [facility] 10:33:00 [facility] REPORT OF PROCEDURE - ENDOSCOPY 2022-05-[address] [facility] URL 10:10:00 [facility] ESOPHAGOGASTRODUODENOSCOPY 2022-05-[facility]:57[facility]00 [facility] SIGMOIDOSCOPY 2022-05-[facility] 09:57:00 [facility] TRANSFUSE LEUKO-REDUCED RED BLOOD 2022-05-14 Mildred Beaupearl nolan [facility] CELLS 08:56:00 [facility] COMPREHENSIVE METABOLIC PANEL 2022-05-[address] [facility] 05:05:00 [facility] CBC W/PLT COUNT & AUTO 2022-05-[address] [facility] DIFFERENTIAL 05:05:00 [facility] MAGNESIUM 2022-05-[address] [facility] 05:05:00 [facility] CBC W/PLT COUNT & AUTO 2022-05-[address] [facility] DIFFERENTIAL 05:05:00 [facility] CBC W/PLT COUNT & AUTO 2022-05-[address] [facility] DIFFERENTIAL 23:57:00 [facility] CBC W/PLT COUNT & AUTO 2022-05-[address] [facility] DIFFERENTIAL 23:57:00 [facility] PREPARE LEUKO-REDUCED RBC 2022-05-13 Stephanie Howard [facility] 23:54:00 [facility] TRANSFUSE CRYOPRECIPITATE 2022-05-13 Stephanie Howard [facility] 23:27:00 [facility] TRANSFUSE LEUKO-REDUCED PLATELETS 2022-05-[address] [facility] 21:15:00 [facility] HEMOGLOBIN AND HEMATOCRIT 2022-05-13 Stephanie Howard [facility] 19:50:00 [facility] TRANSFUSE LEUKO-REDUCED RED BLOOD 2022-05-[address] Lee Tim [address] [facility] CELLS 15:51:00 [facility] BLOOD CULTURE 2022-05-[address] [facility] 06:16:00 [facility] PROTHROMBIN TIME/INR 2022-05-[address] [facility] 06:05:00 [facility] COMPREHENSIVE METABOLIC PANEL 2022-05-[address] [facility] 06:05:00 [facility] CBC W/PLT COUNT & AUTO 2022-05-[address] [facility] DIFFERENTIAL 06:05:00 [facility] MAGNESIUM 2022-05-[address] [facility] 06:05:00 [facility] FIBRINOGEN 2022-05-[address] [facility] 06:05:00 [facility] CBC W/PLT COUNT & AUTO 2022-05-[address] [facility] DIFFERENTIAL 06:05:00 [facility] TRANSFUSE LEUKO-REDUCED RED BLOOD 2022-05-[address] [facility] CELLS 15:59:00 [facility] FIBRINOGEN 2022-05-[address] [facility] 11:13:00 [facility] TYPE AND SCREEN, AUTOMATED 2022-05-[address] [facility] 11:13:00 [facility] PROTHROMBIN TIME/INR 2022-05-[address] [facility] 05:04:00 [facility] COMPREHENSIVE METABOLIC PANEL 2022-05-[address] [facility] 05:04:00 [facility] CBC W/PLT COUNT & AUTO 2022-05-[address] [facility] DIFFERENTIAL 05:04:00 [facility] MAGNESIUM 2022-05-[address] [facility] 05:04:00 [facility] CBC W/PLT COUNT & AUTO 2022-05-[address] [facility] DIFFERENTIAL 05:04:00 [facility] PREPARE CRYOPRECIPITATE 2022-05-[address] [facility] 23:54:00 [facility] CBC W/PLT COUNT & AUTO 2022-05-[address] [facility] DIFFERENTIAL 03:59:00 [facility] COMPREHENSIVE METABOLIC PANEL 2022-05-[address] [facility] 03:59:00 [facility] MAGNESIUM 2022-05-[address] [facility] 03:59:00 [facility] TSH 2022-05-11 Hall, Deyger [facility] 03:59:00 [facility] T4, FREE 2022-05-[address] [facility] 03:59:00 [facility] PROTHROMBIN TIME/INR 2022-05-[address] [facility] 03:59:00 [facility] FIBRINOGEN 2022-05-[address] [facility] 03:59:00 [facility] PHOSPHORUS 2022-05-[address] [facility] 03:59:00 [facility] CBC W/PLT COUNT & AUTO 2022-05-[address] [facility] DIFFERENTIAL 03:59:00 [facility] PREPARE PLASMA 2022-05-[address] [facility] 23:54:00 [facility] PREPARE LEUKO-REDUCED RBC 2022-05-10 Stephanie Howard [facility] 23:54:00 [facility] PREPARE LEUKO-REDUCED PLATELETS 2022-05-[address] [facility] 23:54:00 [facility] SARS-COV2/RT-PCR ([facility] & REF LABS) 2022-05-[address] [facility] 13:35:00 [facility] BLOOD CULTURE 2022-05-[address] [facility] 13:25:00 [facility] CBC (HEMOGRAM ONLY) 2022-05-[address] [facility] 13:24:00 [facility] BLOOD CULTURE 2022-05-[address] [facility] 13:14:00 [facility] CBC W/PLT COUNT & AUTO 2022-05-[address] [facility] DIFFERENTIAL 04:31:00 [facility] COMPREHENSIVE METABOLIC PANEL 2022-05-[address] [facility] 04:31:00 [facility] MAGNESIUM 2022-05-[address] [facility] 04:31:00 [facility] CALCIUM, IONIZED 2022-05-[address] [facility] 04:31:00 [facility] PHOSPHORUS 2022-05-[address] [facility] 04:31:00 [facility] CBC W/PLT COUNT & AUTO 2022-05-[address] [facility] DIFFERENTIAL 04:31:00 [facility] TRANSFUSE CRYOPRECIPITATE 2022-05-10 Stephanie [facility] 01:07:00 [facility] TRANSFUSE LEUKO-REDUCED PLATELETS 2022-05-[address] [facility] 20:22:00 [facility] TRANSFUSE LEUKO-REDUCED RED BLOOD 2022-05-[address] [facility] CELLS 14:30:00 [facility] HEMODIALYSIS INPATIENT 2022-05-[address] [facility] 13:50:21 [facility] MISCELLANEOUS LAB ORDER 2022-05-[address] [facility] 11:54:00 [facility] TRANSFUSE PLASMA 2022-05-[address] [facility] 11:11:00 [facility] IR TUNNELED CATHETER INSERTION 2022-05-[address] [facility] 08:36:00 [facility] CBC W/PLT COUNT & AUTO 2022-05-[address] [facility] DIFFERENTIAL 05:42:00 [facility] COMPREHENSIVE METABOLIC PANEL 2022-05-[address] [facility] 05:42:00 [facility] MAGNESIUM 2022-05-[address] [facility] 05:42:00 [facility] PROTHROMBIN TIME/INR 2022-05-[address] [facility] 05:42:00 [facility] APTT 2022-05-[address] [facility] 05:42:00 [facility] CBC W/PLT COUNT & AUTO 2022-05-[address] [facility] DIFFERENTIAL 05:42:00 [facility] TRANSFUSE PLASMA 2022-05-09 Lee Stephanie [facility] 03:06:00 [facility] TYPE AND SCREEN, AUTOMATED 2022-05-[address] [facility] 21:22:00 [facility] MISCELLANEOUS LAB ORDER 2022-05-08 Carlotta Cody [facility] 19:53:00 [facility] CBC W/PLT COUNT & AUTO 2022-05-08 Lee Stephanie [facility] DIFFERENTIAL 06:09:00 [facility] COMPREHENSIVE METABOLIC PANEL 2022-05-08 Lee Stephanie [facility] 06:09:00 [facility] MAGNESIUM 2022-05-[address] [facility] 06:09:00 [facility] PT/APTT 2022-05-08 Lee Stephanie [facility] 06:09:00 [facility] COCCIDIOIDES AB\\,CF. 2022-05-[address] [facility] 06:09:00 [facility] STRONGYLOIDES ANTIBODY, IGG 2022-05-[address] [facility] 06:09:00 [facility] FIBRINOGEN 2022-05-[address] [facility] 06:09:00 [facility] CBC W/PLT COUNT & AUTO 2022-05-08 Lee Stephanie [facility] DIFFERENTIAL 06:09:00 [facility] PREPARE LEUKO-REDUCED PLATELETS 2022-05-[address] [facility] 23:54:00 [facility] BLOOD CULTURE 2022-05-[address] [facility] 21:04:00 [facility] TOXOPLASMA GONDII ANTIBODY, IGG 2022-05-[address] [facility] 19:55:00 [facility] CYTOLOGY 2022-05-[address] [facility] 17:09:00 [facility] CBC W/PLT COUNT & AUTO 2022-05-[address] [facility] DIFFERENTIAL 03:53:00 [facility] COMPREHENSIVE METABOLIC PANEL 2022-05-07 [address] Howard [facility] 03:53:00 [facility] MAGNESIUM 2022-05-[address] [facility] 03:53:00 [facility] VITAMIN B12 2022-05-[address] [facility] 03:53:00 [facility] PT/APTT 2022-05-[address] [facility] 03:53:00 [facility] CBC W/PLT COUNT & AUTO 2022-05-[address] [facility] DIFFERENTIAL 03:53:00 [facility] PREPARE LEUKO-REDUCED RBC 2022-05-[address] [facility] 23:54:00 [facility] PREPARE PLASMA 2022-05-[address] [facility] 23:54:00 [facility] FIBRINOGEN 2022-05-[address] [facility] 14:07:00 [facility] PT/APTT 2022-05-[address] [facility] 14:07:00 [facility] TYPE AND SCREEN, AUTOMATED 2022-05-[address] [facility] 14:07:00 [facility] CBC W/PLT COUNT & AUTO 2022-05-[address] [facility] DIFFERENTIAL 05:34:00 [facility] COMPREHENSIVE METABOLIC PANEL 2022-05-[address] [facility] 05:34:00 [facility] MAGNESIUM 2022-05-[address] [facility] 05:34:00 [facility] CBC W/PLT COUNT & AUTO 2022-05-[address] [facility] DIFFERENTIAL 05:34:00 [facility] TRANSFUSE LEUKO-REDUCED PLATELETS 2022-05-[address] [facility] 00:09:00 [facility] TRANSFUSE LEUKO-REDUCED PLATELETS 2022-05-[address] [facility] 21:59:00 [facility] TRANSFUSE PLASMA 2022-05-[address] [facility] 18:51:00 [facility] TISSUE EXAM 2022-05-[address] [facility] 15:35:00 [facility] [place] REPORT OF PROCEDURE - ENDOSCOPY 2022-05-[address] [facility] URL 15:06:57 [facility] [place] PREPARE LEUKO-REDUCED RBC 2022-05-05 Stephanie Howard [facility] 11:44:00 [facility] TRANSFUSE LEUKO-REDUCED RED BLOOD 2022-05-[address] [facility] CELLS 11:28:00 [facility] COLONOSCOPY 2022-05-[address] [facility] 11:00:00 [facility] [place] PERIPHERAL BLOOD SMEAR - HOLD ONLY 2022-05-[address] [facility] 09:29:00 [facility] COMPREHENSIVE METABOLIC PANEL 2022-05-[address] [facility] 09:29:00 [facility] CBC W/PLT COUNT & AUTO 2022-05-[address] [facility] DIFFERENTIAL 09:29:00 [facility] MAGNESIUM 2022-05-[address] [facility] 09:29:00 [facility] PROTHROMBIN TIME/INR 2022-05-[address] [facility] 09:29:00 [facility] CBC W/PLT COUNT & AUTO 2022-05-[address] [facility] DIFFERENTIAL 09:29:[address] [facility] CT UPPER EXTREMITY WITHOUT IV 2022-05-[address] [facility] CONTRAST RIGHT 02:46:00 [facility] PREPARE LEUKO-REDUCED RBC 2022-05-04 Stephanie Howard [facility] 23:54:00 [facility] HEMODIALYSIS INPATIENT 2022-05-[address] [facility] 20:30:17 [facility] HC VENOUS DOPPLER EXT UNI 2022-05-[address] [facility] 15:39:00 [facility] POCT-ACT 2022-05-[address] [facility] 12:42:00 [facility] R & L CATH / CORONARY ANGIOS (+/- 2022-05-[address] linda [facility] LV) 10:00:00 [facility] HEMODIALYSIS INPATIENT 2022-05-[address] [facility] 09:35:00 [facility] CALCIUM, IONIZED 2022-05-[address] [facility] 09:08:00 [facility] T3, REVERSE 2022-05-04 Orosco, Kavya Cruza [facility] 09:07:00 [facility] T3 2022-05-04 Kwesi, Kavya Zaynab [facility] 09:07:00 [facility] T4, FREE 2022-05-04 Kwesi, Kavya Cruza [facility] 09:07:00 [facility] TSH 2022-05-04 Kwesi, Kavya Cruza [facility] 09:07:00 [facility] CBC W/PLT COUNT & AUTO 2022-05-[address] [facility] DIFFERENTIAL 09:07:00 [facility] COMPREHENSIVE METABOLIC PANEL 2022-05-[address] [facility] 09:07:00 [facility] PROTHROMBIN TIME/INR 2022-05-[address] [facility] 09:07:00 [facility] MAGNESIUM 2022-05-[address] [facility] 09:07:00 [facility] PHOSPHORUS 2022-05-[address] [facility] 09:07:00 [facility] CBC W/PLT COUNT & AUTO 2022-05-[address] [facility] DIFFERENTIAL 09:07:00 [facility] SARS-COV2/RT-PCR ([facility] & REF LABS) 2022-05-[address] [facility] 22:46:00 [facility] URINALYSIS W/ MICROSCOPIC 2022-05-03 Stephanie Howard [facility] 22:03:00 [facility] TRANSFUSE LEUKO-REDUCED RED BLOOD 2022-05-[address] [facility] CELLS 15:58:00 [facility] LACTATE DEHYDROGENASE (LDH) 2022-05-[address] [facility] 14:38:00 [facility] HAPTOGLOBIN 2022-05-[address] [facility] 14:38:00 [facility] RETICULOCYTE COUNT 2022-05-[address] [facility] 14:38:00 [facility] PERIPHERAL BLOOD SMEAR - 2022-05-[address] PATHOLOGIST REVIEW 14:38:00 [facility] r CBC (HEMOGRAM ONLY) 2022-05-[address] [facility] 14:38:00 [facility] BILIRUBIN, TOTAL AND DIRECT 2022-05-[address] [facility] 14:38:00 [facility] CBC W/PLT COUNT & AUTO 2022-05-[address] [facility] DIFFERENTIAL 14:38:00 [facility] DIRECT AHG (TIP)/DIRECT LURDES 2022-05-[address] [facility] 14:38:00 [facility] ABORH, MANUAL 2022-05-[address] [facility] 14:38:00 [facility] CBC W/PLT COUNT & AUTO 2022-05-[address] [facility] DIFFERENTIAL 14:38:00 [facility] PT/APTT 2022-05-[address] [facility] 14:37:00 [facility] D-DIMER 2022-05-[address] [facility] 14:37:00 [facility] TRANSFUSE LEUKO-REDUCED RED BLOOD 2022-05-[address] [facility] CELLS 09:51:00 [facility] CBC (HEMOGRAM ONLY) 2022-05-[address] [facility] 08:43:00 [facility] TYPE AND SCREEN, AUTOMATED 2022-05-03 Rachid [facility]ingsley [facility] 06:33:00 [facility] T3, FREE 2022-05-[address] [facility] 04:04:00 [facility] CBC W/PLT COUNT & AUTO 2022-05-[address] [facility] DIFFERENTIAL 04:04:00 [facility] COMPREHENSIVE METABOLIC PANEL 2022-05-[address] [facility] 04:04:00 [facility] PROTHROMBIN TIME/INR 2022-05-[address] [facility] 04:04:00 [facility] CALCIUM, IONIZED 2022-05-03 Quezada, Jamshid [facility] 04:04:00 [facility] MAGNESIUM 2022-05-03 Quezada, Jamshid [facility] 04:04:00 [facility] PHOSPHORUS 2022-05-03 Quezada, Jamshid [facility] 04:04:00 [facility] CBC W/PLT COUNT & AUTO 2022-05-[address] [facility] DIFFERENTIAL 04:04:00 [facility] HEMODIALYSIS INPATIENT 2022-05-[address] [facility] 13:47:43 [facility] NM MYOCARDIAL PERFUSION PET/CT 2022-05-[address] [facility] (REST & STRESS) 13:14:00 [facility] ECG 12-LEAD 2022-05-02 Unknown, Hl7 Doctor [facility] 11:36:32 [facility] ECG 12-LEAD 2022-05-02 Unknown, Hl7 Doctor [facility] 11:36:32 [facility] ECG 12-LEAD 2022-05-02 Unknown, Hl7 Doctor [facility] 11:36:32 [facility] US BREAST BILATERAL 2022-05-[address] [facility] 10:06:00 [facility] CBC W/PLT COUNT & AUTO 2022-05-[address] [facility] DIFFERENTIAL 04:39:00 [facility] COMPREHENSIVE METABOLIC PANEL 2022-05-[address] [facility] 04:39:00 [facility] PROTHROMBIN TIME/INR 2022-05-[address] [facility] 04:39:00 [facility] CBC W/PLT COUNT & AUTO 2022-05-[address] [facility] DIFFERENTIAL 04:39:00 [facility] MR ABDOMEN WITH & WITHOUT IV 2022-05-[address] [facility] CONTRAST 14:14:00 [facility] MR PELVIS WITH & WITHOUT IV 2022-05-[address] [facility] CONTRAST 14:14:00 [facility] T SPOT TB 2022-05-[address] [facility] 04:46:00 [facility] CBC W/PLT COUNT & AUTO 2022-05-[address] [facility] DIFFERENTIAL 04:46:00 [facility] COMPREHENSIVE METABOLIC PANEL 2022-05-01 Giovanni Ayde [facility] 04:46:00 [facility] PROTHROMBIN TIME/INR 2022-05-01 Giovanni, Ayde [facility] 04:46:00 [facility] CALCIUM, IONIZED 2022-05-[address] [facility] 04:46:00 [facility] MAGNESIUM 2022-05-[address] [facility] 04:46:00 [facility] PHOSPHORUS 2022-05-[address] [facility] 04:46:00 [facility] IRON, TIBC, % SAT. (WITHOUT 2022-05-[address] [facility] FERRITIN) 04:46:00 [facility] FERRITIN 2022-05-[address] [facility] 04:46:00 [facility] RETICULOCYTE COUNT 2022-05-[address] [facility] 04:46:00 [facility] CBC W/PLT COUNT & AUTO 2022-05-[address] [facility] DIFFERENTIAL 04:46:00 [facility] DRUG SCREEN, URINE, TRANSPLANT 2022-05-[address] [facility] 00:38:00 [facility] PREPARE RBC 2022-04-[address] [facility] 23:54:00 [facility] HEMODIALYSIS INPATIENT 2022-04-[address] [place] [facility] 20:21:36 [facility] XR CHEST 2 VIEWS 2022-04-[address] [facility] 18:54:00 [facility] XR MANDIBLE 4 VIEWS MIN 2022-04-[address] [facility] 18:54:00 [facility] BLOOD GAS, ARTERIAL 2022-04-[address] [facility] 17:14:00 [facility] ECHO W CONTRAST & DOPPLER 2022-04-[address] [facility] 16:54:53 [facility] HC CAROTID DOPPLER ASTRID 2022-04-[address] [facility] 16:30:00 [facility] MISCELLANEOUS LAB ORDER 2022-04-[address] [facility] 15:[facility]00 [facility] ACTIN (SMOOTH MUSCLE) ANTIBODY, 2022-04-30 Aster, Norbert Lema [facility] IGG 15:48:00 Medical Center CARBOHYDRATE ANTIGEN 19-9 (CA 2022-04-30 Aster, [facility]bert [facility]a [facility] 19-9) 15:48:00 [facility] VITAMIN D, 25-HYDROXY 2022-04-30 Aster, Norbert Lem[facility] 15:47:00 [facility] CALCIUM, IONIZED 2022-04-30 Aster, Norbert Lema [facility] 15:47:00 [facility] ZINC 2022-04-30 Aster, Norbetr Lema [facility] 15:47:00 [facility] Center ANTI-NUCLEAR ANTIBODY (JESSIE) 2022-04-30 Aster, Norbert Lema [facility] 15:47:00 [facility] MITOCHONDRIA M2 ANTIBODY (IGG) 2022-04-30 Aster, Norbert Smith [facility] 15:47:00 [facility] RUBEOLA ANTIBODY IGG 2022-04-30 Aster, Norbert Lema [facility] 15:47:00 [facility] MUMPS ANTIBODY, IGG 2022-04-30 Aster, Norbert Lema [facility] 15:47:00 Medical Center RUBELLA ANTIBODY, IGG 2022-04-30 Aster, Norbert Lem[facility] 15:47:00 [facility] VARICELLA ZOSTER ANTIBODY, IGG 2022-04-30 Aster, Norbert [facility] 15:47:00 [facility] CRYPTOCOCCAL ANTIGEN 2022-04-30 Aster, Norbert Lema [facility] 15:47:00 [facility] IRON, TIBC, % SAT. (WITHOUT 2022-04-30 Aster, Norbert Lema [facility] FERRITIN) 15:47:00 Medical Center FERRITIN 2022-04-30 Aster, Norbert Lema [facility] 15:47:00 [facility] Center TRANSFERRIN 2022-04-30 Aster, Norbert Lema [facility] 15:47:00 Medical Center EUECT-7-[id number]\\, SERUM 2022-04-30 Aster, Norbert Lema [facility] 15:47:00 [facility] [place] ALPHA-1 ANTITRYPSIN MUTATION 2022-04-30 Aster, Norbert Lema [facility] ANALYSIS 15:47:00 [facility] CERULOPLASMIN 2022-04-30 Aster, Norbert Lema [facility] 15:47:00 [facility] ALPHA FETOPROTEIN (AFP), TUMOR 2022-04-30 Aster, Norbert Smith [facility] MARKER 15:47:00 [facility] CARCINOEMBRYONIC ANTIGEN (CEA) 2022-04-30 Aster, Norbert [facility] 15:47:00 [facility] HEMOGLOBIN A1C 2022-04-30 Aster, Norbert Lema [facility] 15:47:00 [facility] TSH 2022-04-30 Aster, Norbert Lema [facility] 15:47:00 Medical Center T3 2022-04-30 Aster, Norbert Lema [facility] 15:47:00 Medical Center T4 2022-04-30 Aster, Norbert Lema [facility] 15:47:00 Medical Center ETHANOL 2022-04-30 Aster, Norbert Lema [facility] 15:47:00 Medical Center FIBRINOGEN 2022-04-30 Aster, Norbert Lema [facility] 15:47:00 [facility] Center APTT 2022-04-30 Aster, Norbert Lema [facility] 15:47:00 Medical Center HEPATITIS B CORE ANTIBODY, TOTAL 2022-04-30 Aster, Norbert Lema [facility] 15:47:00 [facility] HC LAB HIV-1 AG W/HIV-1&2 AB 2022-04-30 Aster, Norbert Lema [facility] 15:47:00 [facility] Center RPR 2022-04-30 Aster, Norbert Lema [facility] 15:47:00 Medical Center CYTOMEGALOVIRUS ANTIBODY, IGG 2022-04-30 Aster, [facility]a [facility] 15:47:00 [facility] EBV ANTIBODY, IGM 2022-04-[address] [facility] 15:47:00 [facility] JESSIE TITER AND PATTERN 2022-04-[address] [facility] 15:47:00 [facility] ECG 12-LEAD 2022-04-[address] [facility] 15:27:11 [facility] ESOPHAGOGASTRODUODENOSCOPY 2022-04-30 [facility]One[address] [facility] 13:27:00 [facility] REPORT OF PROCEDURE - ENDOSCOPY 2022-04-[address] [facility] URL 13:00:14 [facility] CBC W/PLT COUNT & AUTO 2022-04-[address] [facility] DIFFERENTIAL 04:50:00 [facility] COMPREHENSIVE METABOLIC PANEL 2022-04-[address] [facility] 04:50:00 [facility] PROTHROMBIN TIME/INR 2022-04-[address] [facility] 04:50:00 [facility] URIC ACID 2022-04-[address] [facility] 04:50:00 [facility] BILIRUBIN, DIRECT 2022-04-[address] [facility] 04:50:00 [facility] GAMMA GLUTAMYL TRANSFERASE (GGT) 2022-04-[address] [facility] 04:50:00 [facility] MAGNESIUM 2022-04-[address] [facility] 04:50:00 [facility] PHOSPHORUS 2022-04-[address] [facility] 04:50:00 [facility] LIPID PANEL 2022-04-[address] [facility] 04:50:00 [facility] CBC W/PLT COUNT & AUTO 2022-04-[address] [facility] DIFFERENTIAL 04:50:00 [facility] TRANSFUSE LEUKO-REDUCED RED BLOOD 2022-04-[address] [facility] CELLS 11:53:00 [facility] HEMOGLOBIN AND HEMATOCRIT 2022-04-29 [facility] 10:09:00 [facility] ABORH, MANUAL 2022-04-29 Brian, Sangita [facility] 10:09:00 [facility] HEMOGLOBIN AND HEMATOCRIT 2022-04-29 [facility] 09:49:00 [facility] TYPE AND SCREEN, AUTOMATED 2022-04-[address] [facility] 09:49:00 [facility] CBC W/PLT COUNT & AUTO 2022-04-[address] [facility] [facility] DIFFERENTIAL 05:33:00 [facility] COMPREHENSIVE METABOLIC PANEL 2022-04-29 Giovanni Ayde [facility] 05:33:00 [facility] PROTHROMBIN TIME/INR 2022-04-29 Giovanni, Ayde [facility] 05:33:00 [facility] CBC W/PLT COUNT & AUTO 2022-04-29 Giovanni, Ayde [facility] DIFFERENTIAL 05:33:00 [facility] HEMODIALYSIS INPATIENT 2022-04-[address] [facility] 15:17:56 [facility] CBC W/PLT COUNT & AUTO 2022-04-28 Anudu, Azubuogu [facility] DIFFERENTIAL 13:43:00 [facility] CBC W/PLT COUNT & AUTO 2022-04-28 Anudu, Azubuogu [facility] DIFFERENTIAL 13:43:00 [facility] US HEPATIC PORTAL VESSEL WITH 2022-04-[address] [facility] DOPPLER 10:17:00 [facility] XR CHEST 1 VIEW PORTABLE / BEDSIDE 2022-04-[address] [facility] 07:31:00 [facility] URINALYSIS W/ MICROSCOPIC 2022-04-[address] [facility] 06:01:00 [facility] SODIUM, RANDOM URINE 2022-04-[address] [facility] 06:01:00 [facility] CREATININE, RANDOM URINE 2022-04-[address] [facility] 06:01:00 [facility] BLOOD CULTURE 2022-04-[address] [facility] 05:27:00 [facility] B-TYPE NATRIURETIC FACTOR (BNP) 2022-04-[address] [facility] 05:26:00 [facility] CREATINE KINASE (CK) 2022-04-28 Quezada[facility]ashid [facility] 05:26:00 [facility] CBC W/PLT COUNT & AUTO 2022-04-[address] [facility] [facility] DIFFERENTIAL 05:26:00 [facility] COMPREHENSIVE METABOLIC PANEL 2022-04-28 Giovanni Ayde [facility] 05:26:00 [facility] PROTHROMBIN TIME/INR 2022-04-[address] [facility] 05:26:00 [facility] CALCIUM, IONIZED 2022-04-[address] [facility] 05:26:00 [facility] MAGNESIUM 2022-04-[address] [facility] 05:26:00 [facility] PHOSPHORUS 2022-04-[address] [facility] 05:26:00 [facility] CBC W/PLT COUNT & AUTO 2022-04-[address] [facility] [facility] DIFFERENTIAL 05:26:00 [facility] BLOOD CULTURE 2022-04-[address] [facility] 23:06:00 [facility] HEMODIALYSIS INPATIENT 2022-04-[address] [facility] 20:30:00 [facility] PHOSPHATIDYLETHANOL, BLOOD 2022-04-[address] [facility] 18[facility]47:00 [facility] LACTIC ACID, VENOUS 2022-04-[address] [facility] [facility] 18:47:00 [facility] HEPATITIS A ANTIBODY, IGG 2022-04-[address] [facility] 18:47:00 [facility] HEPATITIS B CORE ANTIBODY, IGM 2022-04-[address] a [facility] 18:47:00 [facility] HEPATITIS A ANTIBODY, IGM 2022-04-[address] [facility] 18:47:00 [facility] HEPATITIS B SURFACE ANTIGEN 2022-04-27 Carlotta Cody [facility] 18:47:00 [facility] HEPATITIS B SURFACE ANTIBODY 2022-04-[address] [facility] 18:47:00 [facility] HEPATITIS C ANTIBODY 2022-04-[address] [facility] 18:47:00 Medical Center IR NON-TUNNELED DIALYSIS CATHETER 2022-04-[address] [facility] (CENTRAL LINE/CHANEL) 17:53:00 Medical C enter BASIC METABOLIC PANEL 2022-04-[address] [facility] 15:27:00 [facility] Center BILIRUBIN, DIRECT 2022-04-[address] [facility] 15:27:00 [facility] US RENAL COMPLETE 2022-04-[address] [facility] 13:05:00 Medical Center CBC (HEMOGRAM ONLY) 2022-04-[address] [facility] 06:39:00 [facility] COMPREHENSIVE METABOLIC PANEL 2022-04-[address] [facility] 06:39:00 [facility] Center HEPATITIS PANEL, ACUTE 2022-04-[address] [facility] 06:39:00 [facility] CORTISOL 2022-04-[address] [facility] 06:39:00 [facility] Center PHOSPHORUS 2022-04-[address] [facility] 06:39:00 [facility] URINALYSIS WITH MICROSCOPIC IF 2022-04-[address] [facility] INDICATED 03:53:00 [facility] URINALYSIS MICROSCOPIC 2022-04-[address] [facility] 03:53:00 [facility] SARS-COV2/RT-PCR ([facility]) 2022-04-[address] [facility] 01:44:00 [facility] BASIC METABOLIC PANEL 2022-04-[address] [facility] 00:11:00 [facility] CBC W/PLT COUNT & AUTO 2022-04-[address] [facility] DIFFERENTIAL 20:39:00 [facility] COMPREHENSIVE METABOLIC PANEL 2022-04-26 Annamarie Hernandez [facility] 20:39:00 [facility] Center PROTHROMBIN TIME/INR 2022-04-[address] [facility] 20:39:00 [facility] CBC W/PLT COUNT & AUTO 2022-04-[address] [facility] DIFFERENTIAL 20:39:00 Medical Center VASCULAR DIAGRAM -SCAN 2022-04-26 Provider, Default [facility] 00:00:00 [facility] CARDIAC CATH REPORT - SCAN 2022-04-26 Provider, Default [facility] 00:00:00 [facility] Plan of Care Planned Activity Planned Date Details Comments Source Future Scheduled 2032-05-05 Screening for malignant [facility] Test 00:00:00 neoplasm of colon Medical Ce nter (procedure) [code = 311718068] Future Scheduled 2032-05-05 Screening for malignant [facility] Test 00:00:00 neoplasm of colon Medical Ce nter (procedure) [code = 169687515] Future Scheduled 2032-05-05 Screening for malignant [facility] Test 00:00:00 neoplasm of colon Medical Ce nter (procedure) [code = 114896438] Future Scheduled 2032-05-05 Screening for malignant [facility] Test 00:00:00 neoplasm of colon Medical Ce nter (procedure) [code = 798989197] Future Scheduled 2025-04-30 Lipid panel (procedure) [facility] Test 00:00:00 [code = 27269019] Medical Ce nter Future Scheduled 2025-04-30 Lipid panel (procedure) [facility] Test 00:00:00 [code = 02483341] Medical Ce nter Future Scheduled 2023-08-[address] [facility] Test 00:00:00 Counseling and Medical Cente r Screening (12+) [code = Tobacco Cessation Counseling and Screening (12+)] Future Scheduled 2022-10-[address] [facility] 00:00:00 (12+) [code = [facility] DEPRESSION SCREENING (12+)] Future Scheduled 2022-06-14 INFLUENZA VACCINE (#1) [facility] 00:00:00 [code = INFLUENZA Medical Ce nter VACCINE (#1)] Future Scheduled 2022-06-14 INFLUENZA VACCINE (#1) [facility] 00:00:00 [code = INFLUENZA Medical Ce nter VACCINE (#1)] Future Scheduled 2022-06-04 COVID-19 VACCINE (2 - [facility] 00[facility]:00 Pfizer risk series) [facility] [code = COVID-19 VACCINE (2 - Pfizer risk series)] Future Scheduled 2022-06-04 COVID-19 VACCINE (2 - [facility] 00:00:00 Pfizer risk series) Medical Center [code = COVID-19 VACCINE (2 - Pfizer risk series)] Future Scheduled 2021-10-[address] [facility] 00:00:00 (12+) [code = Medical Center DEPRESSION SCREENING (12+)] Future Scheduled 2014 SHINGLES VACCINES ([address] [facility] 00:00:00 2) [code = SHINGLES [facility] VACCINES (1 of 2)] Future Scheduled 2014 SHINGLES VACCINES ([address] [facility] 00:00:00 2) [code = SHINGLES [facility] VACCINES (1 of 2)] Future Scheduled 1985 Screening for malignant [facility] Test 00:00:00 neoplasm of cervix Medical C enter (procedure) [code = 141396977] Future Scheduled 1985 Screening for malignant [facility] Test 00:00:00 neoplasm of cervix Medical C enter (procedure) [code = 963828152] Future Scheduled 1983 DTAP/TDAP/TD VACCINES [facility] 00:00:00 (1 - Tdap) [code = Medical C enter DTAP/TDAP/TD VACCINES (1 - Tdap)] Future Scheduled 1983 DTAP/TDAP/TD VACCINES [facility] 00:00:00 (1 - Tdap) [code = Medical C enter DTAP/TDAP/TD VACCINES (1 - Tdap)] Future Scheduled [address] [facility] 00:00:00 0-64 YRS (1 - PCV) Medical C enter [code = PNEUMOCOCCAL VACCINE 0-64 YRS (1 - PCV)] Future Scheduled [address] [facility] 00:00:00 0-64 YRS (1 - PCV) Medical C enter [code = PNEUMOCOCCAL VACCINE 0-64 YRS (1 - PCV)] Future Scheduled 1964 Screening for malignant [facility] Test 00:00:00 neoplasm of breast Medical C enter (procedure) [code = 577785759] Future Scheduled 1964 CT Colonography (combo) [facility] 00:00:00 [code = CT Colonography [facility] (combo)] Future Scheduled 1964 Screening for malignant [facility] Test 00:00:00 neoplasm of colon Medical Ce nter (procedure) [code = 609182362] Future Scheduled 1964 Screening for malignant [facility] Test 00:00:00 neoplasm of colon Medical Ce nter (procedure) [code = 854793296] Future Scheduled 1964 Sigmoidoscopy [code = [facility]:00 Sigmoidoscopy] Medical Papae r Future Scheduled 1964 Screening for malignant [facility] Test 00:00:00 neoplasm of breast Medical C enter (procedure) [code = 817890886] Future Scheduled 1964 CT Colonography (combo) [facility] 00:00:00 [code = CT Colonography [facility] (combo)] Future Scheduled 1964 Screening for malignant [facility] Test 00:00:00 neoplasm of colon Medical Ce nter (procedure) [code = 403283107] Future Scheduled 1964 Screening for malignant [facility] Test 00:00:00 neoplasm of colon Medical Ce nter (procedure) [code = 460650967] Future Scheduled 1964 Sigmoidoscopy [code = [facility] 00:[facility]:00 S[facility]oidoscopy] [facility] Start End Encounter Admission Attending Care Care Encounter Source Date/Time Date/Time Type Type Clinicians Facility Department ID 2022-05-04 Outpatient Paulding, STLMLC STLMLC [id number] Common 08:41:00 Chey [facility] 2022-04-26 Outpatient Paulding, STLMLC STLMLC [id number] Common 09:50:00 Chey [id number] [facility] 2021-11-08 Outpatient Paulding, STLMLC STLMLC [id number] Common 13:50:24 Chey [id number] [facility] 2021-11-08 Outpatient Paulding, STLMLC STLMLC [id number] Common 13:49:51 Chey 11395 [facility] 2021-11-08 Outpatient Paulding, STLMLC STLMLC [id number] Common 13:21:55 Chey [id number] [facility] 2021-11-08 Outpatient Cifuentes, STLMLC STLMLC [id number] Common 13:19:10 Avnee [id number] [facility] 2021-11-08 Outpatient STLMLC STLMLC [id number] Common 13:18:36 [id number] [facility] 2021-11-08 Outpatient Millender, STLMLC STLMLC [id number] Common 11:36:59 Miladys [id number] [facility] 2021-11-08 Outpatient Millender, STLMLC STLMLC [id number] Common 11:36:28 Miladys [id number] [facility] 2021-11-08 Outpatient Millender, STLMLC STLMLC [id number] Common 11:24:08 Miladys [id number] [facility] 2021-11-08 Outpatient Millender, STLMLC STLMLC [id number] Common 11:11:32 Miladys [id number] [facility] 2022-10-10 2022-10-[address] [facility] [id number] 00:[facility] 00:00:00 [facility] 2022-10-09 2022-10-[address] [facility] [id number] 00:00[facility]00 00:00:00 [facility] 2022-10-04 2022-10-[address] [facility] [id number] 00:[facility] 00:00:00 [facility] 2022-10-03 2022-10-[address] [facility] [id number] 00:00[facility] 00:00:00 [facility] 2022-10-01 2022-10-[address] [facility] [id number] 00:00:00 00:00:00 [facility] 2022-09-27 2022-09-27 Follow-Up Dino Spence [facility] [id number] 08:15:00 08:30:00 Lands, Carlyle [facility] 2022-09-27 2022-09-[address] [facility] [id number] 07:50:00 07:55:00 Only [facility] 2022-09-27 2022-09-[address] [facility] [id number] 00:00:00 00:00:00 Only [facility] 2022-09-27 2022-09-[address] [facility] [id number] 00:00:00 00:00:00 [facility] 2022-09-24 2022-09-[address] [facility] [id number] 00:00:00 00:00:00 [facility] 2022-09-24 2022-09-[address] [facility] [id number] 00:00:00 00:00:00 Only [facility] 2022-09-21 2022-09-[address] [facility] [id number] 00:00:00 00:00:00 [facility] 2022-09-21 2022-09-[address] [facility] [id number] 00:00:00 00:00:00 [facility] 2022-09-20 2022-09-[address] [facility] [id number] 00:00:00 00:00:00 [facility] 2022-09-19 2022-09-[address] [facility] [id number] 00:00:00 00:00:00 Only [facility] 2022-09-19 2022-09-[address] [facility] [id number] 00:00:00 00:00:00 [facility] 2022-09-18 2022-09-[address] [facility] [id number] 00:00:00 00:00:00 [facility] 2022-09-14 2022-09-[address] [facility] [id number] 00:00:00 00:00:00 [facility] 2022-09-14 2022-09-[address] [facility] [id number] 00:00:00 00:00:00 [facility] 2022-09-14 2022-09-[address] [facility] [id number] 00:00:00 00:00:00 [facility] 2022-09-05 2022-09-[address] [facility] [id number] 00:00:00 00:00:00 [facility] 2022-09-05 2022-09-[address] [facility] [id number] 00:00:00 00:00:00 Only [facility] 2022-09-04 2022-09-[address] [facility] [id number] 00:00:00 00:00:00 Only [facility] 2022-09-04 2022-09-[address] [facility] [id number] 00:00:00 00:00:00 [facility] 2022-09-02 2022-09-[address] [facility] [id number] 00:00:00 00:00:00 [facility] 2022-08-31 2022-08-[address] [facility] [id number] 00:00:00 00:00:00 [facility] 2022-08-30 2022-08-30 Follow-Up Dino Spence [facility] [id number] 08:00:00 08:15:00 [facility] 2022-08-30 2022-08-30 [facility] [id number] 07:40:00 07:45:00 Only [facility] 2022-08-27 2022-08-[address] [facility] [id number] 00:00:00 00:00:00 [facility] 2022-08-20 2022-08-[address] [facility] [id number] 00:00:00 00:00:00 [facility] 2022-08-17 2022-08-17 [facility] [id number] 00:00:00 00:00:00 [facility] 2022-08-16 2022-08-16 Orders Jordy [facility] [id number] 08:35:00 08:40:00 Only [facility] 2022-08-16 2022-08-16 Follow-Up Dino Spence [facility] [id number] 08:00:00 08:15:00 [facility] 2022-08-16 2022-08-16 [facility]at [facility] [id number] 00:00:00 00:00:00 ion [facility] 2022-08-10 2022-08-10 Refill Jordy [facility] [id number] 00:00:00 00:00:00 [facility] 2022-08-02 2022-08-06 [facility] [id number] [facility] [address] 20:30:00 14:30:00 Encounter [facility] 2022-08-02 2022-08-06 Inpatient UR [facility] Transplant [id number] [facility] 20:30:00 14:30:00 LUDWIG 2022-08-03 2022-08-03 Outpatient [facility] [id number] [facility] 00:00:00 23:59:00 Karen 2022-08-02 2022-08-02 Emergency E RUBEN, [facility]BL BL [id number] BL 08:37:00 21:00:00 BREN 2022-08-02 2022-08-02 Follow-Up Olga [facility] [id number] [facility] 09:00:00 09:15:00 [facility] 2022-07-19 2022-07-19 [facility] [id number] 07:30:00 07:30:00 Encounter [facility] 2022-07-15 2022-07-15 [facility] [id number] 00:00:00 00:00:00 [facility] 2022-07-15 2022-07-15 [facility] [id number] 00:00[facility]00 00[facility]00[facility]00 [place] [facility] 2022-07-14 2022-07-14 Reftyrell Spence [facility] [id number] [id number] [facility] 00[facility]00:00 [facility] 2022-07-14 2022-07-14 [facility] [id number] [id number] [facility] [address] 00:[facility]00 00:00:00 [facility] 2022-07-13 2022-07-[address] [facility] [id number] [facility]00 00:00:00 [facility] 2022-07-13 2022-07-[address] [facility] [id number] 00:00:00 00:00:00 Only [facility] 2022-07-13 2022-07-[address] [facility] [id number] [facility]00 00:00:00 [facility] 2022-07-13 2022-07-[address] [facility] [id number] 00:00:00 00:00:00 Only [facility] 2022-07-12 2022-07-12 Follow-Up Dino Spence Alan [facility] [id number] 08:30:00 08:45:00 [facility] 2022-07-12 2022-07-12 Follow-Up Dino Spence Chirag [facility] [id number] 08:30:00 08:45:00 [place] [facility] 2022-07-12 2022-07-12 Orders Jordy [facility] [id number] [id number] 08:00:00 08:05:00 Only [facility] 2022-07-12 2022-07-12 Orders ANGEL Spence [facility] [id number] [id number] 08:00:00 08:05:00 Only [facility] 2022-07-12 2022-07-12 Refill Jordy [facility] [id number] [id number] 00:00:00 00:00:00 [facility] 2022-07-12 2022-07-12 Refill Jordy [facility] [id number] [address] 00:00:00 00:00:00 [facility] 2022-07-10 2022-07-[address] [facility] [id number] 00:00:00 00:00:00 [facility] 2022-07-10 2022-07-[address] [facility] [id number] 00:00[facility]00 00:00:00 [facility] 2022-07-09 2022-07-09 Outpatient EL SLE SLE [id number] [facility]H 07:45:18 07:45:18 2022-07-09 2022-07-[address] [facility] [id number] [id number] 07:40:00 07:45:00 Only [facility] 2022-07-09 2022-07-09 Orders ANGEL Spence [facility] [id number] [id number] 07:40:00 07:45:00 Only [facility] 2022-07-05 2022-07-05 Follow-Up Olga [facility] [id number] [id number] 09:30:00 10:00:00 [facility] 2022-07-05 2022-07-05 Follow-Up Olga [facility] [id number] [id number] 09:30:00 10:00:00 [facility] 2022-07-05 2022-07-05 Follow-Up Praveen Dino FarahWei [facility] [id number] 08:30:00 08:45:00 LizCrow [facility] 2022-07-05 2022-07-05 Follow-Up PraveenDino [facility] [id number] 08:30:00 08:45:00 [facility] 2022-07-05 2022-07-[address] [facility] [id number] 08:00:00 08:05:00 Only [facility] 2022-07-05 2022-07-[address] [facility] [id number] 08:00:00 08:05:00 Only [facility] 2022-07-05 2022-07-05 Outpatient EL [place] [facility] [id number] [facility] 07:28:53 07:28:53 2022-07-05 2022-07-05 Outpatient SLEH SLE [id number] [facility] 07:28:35 07:28:35 2022-07-05 2022-07-[address] [facility] [id number] [facility] 00:00[facility]00 00:00:00 [facility] 2022-07-05 2022-07-[address] [facility] [id number] 00:00:00 00:00:00 [facility] 2022-06-29 2022-06-[address] [facility] [id number] 00:00:00 00:00:00 [facility] 2022-06-29 2022-06-[address] [facility] [id number] [facility] 00:00:00 00:00:00 [facility] 2022-06-28 2022-06-28 Outpatient EL DINO SPENCE [facility] 2048 [id number] SLE 09:11:05 09:11:05 2022-06-28 2022-06-28 Outpatient [facility] SLE [id number] SLEH 09:10:55 09:10:55 2022-06-28 2022-06-28 Follow-Up Dino Spence [facility] [id number] 08:30:00 08:45:00 [facility] 2022-06-28 2022-06-28 Follow-Up Dino Spence [facility] [id number] [facility] 08:30:00 08:45:00 [facility] 2022-06-28 2022-06-[address] [facility] [id number] [id number] 08:00:00 08:05:00 Only [facility] 2022-06-28 2022-06-[address] [facility] [id number] [id number] 08:00:00 08:05:00 Only [facility] 2022-06-22 2022-06-[address] [facility] [id number] 00:00:00 00:00:00 [facility] 2022-06-22 2022-06-[address] [facility] [id number] 00:00:00 00:00:00 [facility] 2022-06-22 2022-06-[address] [facility] [id number] [facility] 00:00:00 00:00:00 [facility] 2022-06-22 2022-06-[address] [facility] [id number] [address] 00:00:00 00:00:00 [facility] 2022-06-22 2022-06-[address] [facility] [id number] [id number] 00:00:00 00:00:00 [facility] 2022-06-22 2022-06-[address] [facility] [id number] 00:00:00 00:00:00 [facility] 2022-06-22 2022-06-[address] [facility] [id number] 00:00:00 00:00:00 [facility] 2022-06-22 2022-06-[address] [facility] [id number] 00:00:00 00:00:00 [facility] 2022-06-22 2022-06-[address] [facility] [id number] 00:00:00 00:00:00 [facility] 2022-06-22 2022-06-[address] [facility] [id number] [id number] 00:00:00 00:00:00 [facility] 2022-06-21 2022-06-21 Outpatient [place] [facility] SLE [id number] SLEH 11:34:49 23:59:00 2022-06-21 2022-06-21 [facility] [place] [facility] [id number] 11:30:00 23:59:00 Encounter 1, [facility] 2022-06-21 2022-06-21 [facility] [place] [facility] [id number] 11:30:00 23:59:00 Encounter 1, [facility] 2022-06-21 2022-06-21 Follow-Up Dino Spence Chirag [facility] [id number] 08:45:00 09:00:00 Candy Inman [facility] 2022-06-21 2022-06-21 Follow-Up Dino Spence Alan [facility] [id number] 08:45:00 09:00:00 Pavel Candy Eliot [facility] 2022-06-21 2022-06-21 Outpatient EL PAVEL [facility] [id number] SLE 08:34:02 08:34:02 CANDY 2022-06-21 2022-06-21 Outpatient [facility] [id number] SLE 08:33:49 08:33:49 2022-06-21 2022-06-[address] [facility] [id number] 08:10:00 08:15:00 Only [facility] 2022-06-21 2022-06-21 Orders ANGEL Spence [facility] [id number] 08:10:00 08:15:00 Only [facility] 2022-06-21 2022-06-[address] [facility] [id number] [id number] 00:00:00 00:00:00 [facility] 2022-06-21 2022-06-[address] [facility] [id number] 00:00:00 00:00:00 [facility] 2022-06-21 2022-06-[address] [facility] [id number] [id number] 00:00:00 00:00:00 [facility] 2022-06-21 2022-06-[address] [facility] [id number] 00:00:00 00:00:00 [facility] 2022-06-19 2022-06-[address] [facility] [id number] [id number] 00:00:00 00:00:00 ion [facility] 2022-06-19 2022-06-[address] [facility] [id number] [id number] 00:00:00 00:00:00 ion [facility] 2022-06-16 2022-06-16 Outpatient EL SLEH SLEH [id number] SLEH 09:18:01 09:18:01 2022-06-16 2022-06-[address] [facility] [id number] [id number] 07:00:00 07:15:00 Only [facility] 2022-06-16 2022-06-[address] [facility] [id number] [id number] [facility] 07:00:00 07:15:00 Only [facility] 2022-06-16 2022-06-[address] [facility] [id number] 00:00:00 00:00:00 [facility] 2022-06-16 2022-06-[address] [facility] [id number] 00:00:00 00:00:00 [facility] 2022-06-15 2022-06-[address] [facility] [id number] [id number] 07:30:00 07:35:00 Only [facility] 2022-06-15 2022-06-[address] [facility] [id number] [id number] 07:30:00 07:35:00 Only [facility] 2022-06-15 2022-06-15 Outpatient EL SLEH SLEH [id number] SLEH 07:30:58 07:30:58 2022-06-15 2022-06-[address] [facility] [id number] 00:00:00 00:00:00 Only [facility] 2022-06-15 2022-06-[address] [facility] [id number] [id number] 00:00:00 00:00:00 ion [facility] 2022-06-15 2022-06-15 Telephone Walker, [facility] [id number] [facility] 00:00:00 00:00:00 [facility] 2022-06-15 2022-06-15 Orders Deonte, [facility] [id number] 00:00:00 00:00:00 Only [facility] 2022-06-15 2022-06-[address] [facility] [id number] 00:00:00 00:00:00 Only [facility] 2022-06-15 2022-06-[address] [facility] [id number] [id number] 00:00:00 00:00:00 [facility] 2022-06-15 2022-06-15 Telephone Deonte, [facility] [id number] 00:00:00 00:00:00 [facility] 2022-06-15 2022-06-[address] [facility] [id number] 00:00:00 00:00:00 Only [facility] 2022-06-14 2022-06-14 [facility] [place] [facility] [id number] [facility] 23:59:00 23:59:00 Encounter 1[facility] 2022-06-14 2022-06-14 [facility] [place] [facility] [id number] [facility] 23:59:00 23:59:00 Encounter 1, [facility] 2022-06-14 2022-06-14 Outpatient [facility] [id number] [facility] 10:23:00 23:59:00 Karen 2022-06-14 2022-06-14 Outpatient CROW IHLL [facility] SLE [id number] SLE 00:00:00 23:59:00 2022-06-14 2022-06-14 [facility] Emily [facility] [id number] 10:23:00 14:45:00 Encounter [facility] 2022-06-14 2022-06-[address] [facility] [id number] 10:23:00 14:45:00 Encounter [facility] 2022-06-14 2022-06-14 Outpatient YUNIOR MARADIAGA Surgery [id number] SLE 10:23:00 14:45:00 [facility] 2022-06-14 2022-06-14 An[address]hesia Matilde, [facility] [id number] [id number] 11:53:00 13:28:00 Event [facility] 2022-06-14 2022-06-[address] [facility] [id number] [id number] 11:53:00 13:28:00 Event [facility] 2022-06-14 2022-06-[address] [facility] [id number] 12:00:00 13:00:00 [facility] 2022-06-14 2022-06-[address] [facility] [id number] 12:00:00 13:00:00 [facility] 2022-06-14 2022-06-14 Follow-Up Dino Spence [facility] [id number] 08:15:00 08:30:00 [facility] 2022-06-14 2022-06-14 Follow-Up Dino Spence [facility] [id number] 08:15:00 08:30:00 [place] [facility] 2022-06-14 2022-06-14 Outpatient SLE SLE [id number] SLEH 07:35:07 07:35:07 2022-06-14 2022-06-14 Outpatient SLE SLE [id number] SLE 07:34:11 07:34:11 2022-06-14 2022-06-[address] [facility] [id number] [id number] 07:25:00 07:30:00 Only [facility] 2022-06-14 2022-06-[address] [facility] [id number] [id number] 07:25:00 07:30:00 Only [facility] 2022-06-14 2022-06-[address] [facility] [id number] [id number] 00:00:00 00:00:00 [facility] 2022-06-14 2022-06-14 Ghazal Spence [facility] [id number] [id number] 00:00:00 00:00:00 [facility] 2022-06-14 2022-06-14 Travel [facility] [id number] [facility]00 00:00:00 [facility] 2022-06-14 2022-06-[address] [facility] [id number] [id number] 00:00:00 00:00:00 [facility] 2022-06-14 2022-06-[address] [facility] [id number] [id number] 00:00:00 00:00:00 [facility] 2022-06-14 2022-06-14 Ghazal Spence [facility] [id number] [id number] 00:00:00 00:00:00 [facility] 2022-06-14 2022-06-14 Travel [facility] [id number] [facility]00 00:00:00 [facility] 2022-06-14 2022-06-[address] [facility] [id number] [id number] 00:00:00 00:00:00 [facility] 2022-06-13 2022-06-13 [id number] Co mmon 00:00:00 00:00:00 [facility] 2022-06-13 2022-06-13 Documentat Gayle, [facility] [id number] [id number] 00:00:00 00:00:00 [facility] 2022-06-13 2022-06-13 Documentat Irwin, [facility] [id number] 00:00:00 00:00:00 [facility] 2022-06-13 2022-06-13 Documentat Gayle, [facility] [id number] 00:00:00 00:00:00 [facility] 2022-06-13 2022-06-13 Documentat Gayle, [facility] [id number] 00:00:00 00:00:00 [facility] 2022-06-12 2022-06-12 Documentat Webber, [facility] [id number] [id number] 00:00:00 00:00:00 [facility] 2022-06-12 2022-06-12 Documentat Walker, [facility] [id number] [id number] 00:00:00 00:00:00 [facility] 2022-06-12 2022-06-[address] [facility] [id number] 00:00:00 00:00:00 [facility] 2022-06-12 2022-06-12 Documentat Webber, [facility] [id number] [id number] 00:00:00 00:00:00 [facility] 2022-06-12 2022-06-12 Documentat Walker, [facility] [id number] [id number] 00:00:00 00:00:00 [facility] 2022-06-12 2022-06-12 Telephone Deonte, [facility] [id number] 00:00:00 00:00:00 [facility] 2022-06-11 2022-06-[address] [facility] [id number] [id number] 08:30:00 08:40:00 Only [facility] 2022-06-11 2022-06-11 Orders EL Dino Spence [facility] [id number] [id number] 08:30:00 08:40:00 Only [facility] 2022-06-11 2022-06-11 Outpatient EL SLEH SLE [id number] SLEH 07:33:42 07:33:42 2022-06-08 2022-06-[address] [facility] [id number] 00:00:00 00:00:00 [facility] 2022-06-08 2022-06-[address] [facility] [id number] 00:00:00 00:00:00 [facility] 2022-06-07 2022-06-07 Follow-Up Dino Spence [facility] [id number] 09:15:00 09:30:00 [facility] 2022-06-07 2022-06-07 Follow-Up Dino Spence [facility] [id number] [id number] 09:15:00 09:30:00 [facility] 2022-06-07 2022-06-[address] [facility] [id number] 07:50:00 07:55:00 Only [facility] 2022-06-07 2022-06-[address] [facility] [id number] 07:50:00 07:55:00 Only [facility] 2022-06-07 2022-06-07 Outpatient EL JORDY DINO [facility] SLE [id number] SLE 07:12:52 07:12:52 2022-06-07 2022-06-07 Outpatient EL SLEH SLEH [id number] [facility] 07:12:41 07:12:41 2022-06-05 2022-06-05 Outpatient EL SLEH SLE [id number] SLEH 07:48:53 07:48:53 2022-06-05 2022-06-[address] [facility] [id number] 07:40:00 07:45:00 Only [facility] 2022-06-05 2022-06-[address] [facility] [id number] 07:40:00 07:45:00 Only [facility] 2022-06-05 2022-06-05 Telephone Walker, [facility] [id number] 00:00:00 00:00:00 [facility] 2022-06-05 2022-06-05 Documentat Walker, [facility] [id number] 00:00:00 00:00:00 [facility] 2022-06-05 2022-06-05 Tele[address] Walker, [facility] [id number] 00:00:00 00:00:00 [facility] 2022-06-05 2022-06-05 Documentat Walker, [facility] [id number] [id number] 00:00:00 00:00:00 [facility] 2022-04-26 2022-06-04 Inpatient DINO BEATTY [facility] Surgery [id number] [facility] 19:03:00 20:32:00 2022-04-26 2022-06-04 [facility] [id number] [facility] 19:03:00 20:32:00 Encounter Ayde Davila, [facility], Lorenzo Smith enter Colleen, Dino Zafar, Annamarie 2022-04-26 2022-06-04 [facility] Keith Casillas [facility] [id number] [facility] 19:03:00 20:32:00 Encounter Ayde Davila, Stephanie [facility], Lorenzo Luis enter Colleen, Dino Zafar, Annamarie 2022-06-04 2022-06-04 Documentat Walker, [facility] [id number] [id number] 00:00:00 00:00:00 ion [facility] 2022-06-04 2022-06-04 Orders Deonte, [facility] [id number] 00:00:00 00:00:00 Only [facility] 2022-06-04 2022-06-04 Documentat Deonte, [facility] [id number] [id number] 00:00:00 00:00:00 ion [facility] 2022-06-04 2022-06-04 Orders Deonte, [facility] [id number] 00:00:00 00:00:00 Only [facility] 2022-05-28 2022-05-[address] [facility] [id number] 19:28:00 20:28:00 [facility] 2022-05-28 2022-05-[address] [facility] [id number] 19:28:00 20:28:00 [facility] 2022-05-28 2022-05-[address] [facility] [id number] [facility] 18:50:00 19:01:00 Event Cielo [facility] 2022-05-28 2022-05-[address] [facility] [id number] [facility] 18:50:00 19:01:00 Event Cielo [facility] 2022-05-24 2022-05-[address] [facility] [id number] 00:00:00 00:00:00 Only [facility] 2022-05-24 2022-05-24 Orders Deonte, [facility] [id number] 00:00:00 00:00:00 Only [facility] 2022-05-22 2022-05-[address] [facility] [id number] 00:00:00 00:00:00 [facility] 2022-05-22 2022-05-[address] [facility] [id number] [facility] 00:00[facility]00 00:00:00 [facility] 2022-05-22 2022-05-[address] [facility] [id number] 00:00:00 00:00:00 [facility] 2022-05-22 2022-05-[address] [facility] [id number] [facility] 00:[facility]:00 00:00:00 [facility] 2022-05-18 2022-05-[address] [facility] [id number] 00:00:00 00:00:00 [facility] 2022-05-18 2022-05-[address] [facility] [id number] 00:00:00 00:00:00 [facility] 2022-05-16 2022-05-[address] [facility] [id number] [facility] [facility] 06:48:00 14:55:00 [facility] 2022-05-16 2022-05-[address] [facility] [id number] 06:48:00 14:55:00 Event Trev [facility] 2022-05-16 2022-05-[address] [facility] [id number] 07:00:00 13:41:00 [facility] 2022-05-16 2022-05-[address] [facility] [id number] [id number] 07:00:00 13:41:00 [facility] 2022-05-16 2022-05-[address] [facility] [id number] [facility] 00:00:00 00:00:00 [facility] 2022-05-16 2022-05-16 [facility]ivan [facility] [id number] [facility] 00:[facility]00 00:00:00 catherine [facility] 2022-05-15 2022-05-[address] [facility] [id number] [facility] 00:[facility]00 00:00:00 [facility] 2022-05-15 2022-05-15 [facility]at [facility] [id number] [id number] 00:00:00 00:00:00 catherine [facility] 2022-05-15 2022-05-15 [facility]at [facility] [id number] [id number] 00:[facility]00 00:00:00 [facility] 2022-05-15 2022-05-[address] [facility] [id number] 00:00[facility]00 00:00:00 [facility] 2022-05-15 2022-05-15 Document [facility] [id number] [id number] 00:00[facility]00 00:00:00 [facility] 2022-05-15 2022-05-15 Document [facility] [id number] [id number] 00:[facility]00 00:00:00 [facility] 2022-05-14 2022-05-[address] [facility] [id number] 10:20:00 11:30:00 [facility] 2022-05-14 2022-05-[address] [facility] [id number] [facility] 10:20:00 11:30:00 [facility] 2022-05-14 2022-05-[address] [facility] [id number] [facility] 10:07:00 11:06:00 Flako Mcbride [facility] 2022-05-14 2022-05-14 Anesthesia Anmichael, Octavio Colin [facility] [id number] [facility] 10:07:00 11:06:00 [facility]22-[facility]-14 2022-05-[address] [facility] [id number] [facility] 00:00:00 00:00:00 [facility] 2022-05-14 2022-05-[address] [facility] [id number] [facility] 00:00[facility]00 00:00:00 [facility] 2022-05-14 2022-05-[address] [facility] [id number] [id number] [facility] 00:00:00 00:00:00 [facility] 2022-05-14 2022-05-[address] [facility] [id number] [facility] 00:00:00 00:00:00 [facility] 2022-05-14 2022-05-[address] [facility] [id number] [facility] 00:00:00 00:00:00 [facility] 2022-05-14 2022-05-[address] [facility] [id number] [id number] [facility] 00:00:00 00:00:00 [facility] 2022-05-11 2022-05-[address] [facility] [id number] 00:00[facility]00 00:00:00 [facility] 2022-05-11 2022-05-[address] [facility] [id number] [facility] 00:00[facility]00 00:00[facility]00 [facility] [facility] 2022-05-11 2022-05-[address] [facility] [id number] [facility]00 [facility] 2022-05-11 2022-05-[address] [facility] [id number] [facility] [facility] 00[facility]00 [facility] 2022-05-10 2022-05-[address] [facility] [id number] [facility]00 00:00:[address] [facility] 2022-05-10 2022-05-[address] [facility] [id number] [facility] 00[facility]00[facility]00 [facility] 2022-05-10 2022-05-[address] [facility] [id number] [facility] 00[facility]00:00 [facility] 2022-05-10 2022-05-[address] [facility] [id number] [facility]:00[facility]00 00:00:[address] [facility] 2022-05-10 2022-05-[address] [facility] [id number] [facility]00 00:00:00 [facility] 2022-05-10 2022-05-[address] [facility] [id number] [facility] 00[facility]00[facility]00 [facility] 2022-05-09 2022-05-[address] [facility] [id number] [facility] 00[facility]00[facility]00 [facility] 2022-05-09 2022-05-[address] [facility] [id number] [facility] 00[facility]00[facility]00 [facility] 2022-05-09 2022-05-[address] [facility] [id number] [facility]00 00:00:00 [facility] 2022-05-09 2022-05-[address] [facility] [id number] [facility] 00:00:00 [facility] 2022-05-07 2022-05-[address] [facility] [id number] 00:[facility]00 00:00:00 [facility] 2022-05-07 2022-05-[address] [facility] [id number] 00:[facility]00 00:00:00 [facility] 2022-05-07 2022-05-[address] [facility] [id number] 00:00[facility]00 00:00:00 [facility] 2022-05-07 2022-05-07 [facility] [id number] [facility] 00:00[facility]00 [facility] 2022-05-07 2022-05-07 [facility] [id number] [id number] [facility]00 00:00:00 [facility] 2022-05-07 2022-05-[address] [facility] [id number] 00:00[facility]00 00:00:00 [facility] 2022-05-05 2022-05-05 Anesthesia [facility] Raghavendranatdarinel Gregory [facility] [id number] [facility]:15[facility] 16[facility]16[facility]00 [facility]-05 2022-05-[address] [facility] [id number] [address] 15:15:00 16:16:00 Event Carlito [facility] 2022-05-05 2022-05-[address] [facility] [id number] 11:00:00 12:00:00 [facility] 2022-05-05 2022-05-[address] [facility] [id number] 11:00:00 12:00:00 [facility] 2022-05-04 2022-05-[address] [facility] [id number] 09:34:00 11:53:00 [facility] 2022-05-04 2022-05-04 Surgery Lacie, [facility] [id number] 09:34:00 11:53:00 [facility] 2022-05-04 2022-05-04 (TEL) [facility] [id number] Co mmon 00:00:00 00:00:00 [facility] 2022-05-04 2022-05-04 Documentat Toribio, [facility] [id number] [facility] 00[facility]:00 [facility] 2022-05-04 2022-05-04 Abstract Lowe, [facility] [id number] [address] [facility]:00[facility]00 00:00:00 [facility] 2022-05-04 2022-05-04 Documentat Toribio, [facility] [id number] [facility] 00:[facility]:00 [facility] 2022-05-04 2022-05-04 Documentat Toribio, [facility] [id number] [facility] 00[facility]:00 [facility] 2022-05-04 2022-05-04 Documentat Toribio, [facility] [id number] [facility] 00[facility]:00 [facility] 2022-05-04 2022-05-04 Abstract Lowe, [facility] [id number] 00:00:00 00:00:00 [facility] 2022-05-04 2022-05-04 Documentat Toribio, [facility] [id number] [facility] 00:00:00 [facility] 2022-05-04 2022-05-04 Documentat Toribio, [facility] [id number] [facility] 00[facility]00 [facility] 2022-05-03 2022-05-03 (TEL) [facility] [id number] Co mmon 00:00:00 00:00:00 [facility] 2022-05-03 2022-05-[address] [facility] [id number] [facility] 00:00:00 [facility] 2022-05-03 2022-05-[address] [facility] [id number] [facility]00 00:00:00 [facility] 2022-05-03 2022-05-[address] [facility] [id number] [facility]00 00:00:00 [facility] 2022-05-03 2022-05-[address] [facility] [id number] 00:00[facility]00 00:00:00 [facility] 2022-05-02 2022-05-[address] [facility] [id number] 00:00:00 00:00:00 [facility] 2022-05-02 2022-05-[address] [facility] [id number] 00:00:00 00:00:00 [facility] 2022-05-01 2022-05-[address] [facility] [id number] 00:00:00 00:00:00 [facility] 2022-05-01 2022-05-[address] [facility] [id number] 00:00[facility]00 00:00:00 [facility] 2022-04-30 2022-04-30 Outpatient [facility] [id number] [facility] 00:00:00 23:59:00 Karen 2022-04-30 2022-04-[address] [facility] [id number] [facility] 13:37:00 14:16:00 Event Croxson, [facility] 2022-04-30 2022-04-[address] [facility] [id number] 13:37:00 14:16:00 Event Yu [facility] 2022-04-30 2022-04-30 Surgery Nakul, [facility] [id number] 11:38:00 12:35:00 [facility] 2022-04-30 2022-04-30 Surgery Nakul, [facility] [id number] 11:38:00 12:35:00 [facility] 2022-04-30 2022-04-[address] [facility] [id number] 00:00[facility]00 00:00:00 [facility] 2022-04-30 2022-04-[address] [facility] [id number] 00:[facility]00 00:00:00 [facility] 2022-04-30 2022-04-[address] [facility] [id number] 00:00:00 00:00:00 [facility] 2022-04-30 2022-04-[address] [facility] [id number] 00:[facility] 00:00:00 [facility] 2022-04-26 2022-04-26 Outpatient [facility] [id number] [facility] 19:03:00 23[facility]59[facility]22-[facility]-26 2022-04-26 Outpatient [facility] [id number] [facility] 19:03:00 19:03:00 [facility] 2022-04-26 2022-04-26 Outpatient [facility] [id number] [facility] 19:03:00 19:03:00 [facility] 2022-04-26 2022-04-26 OL DIG E/M STLMLC STLMLC [id number] Common 00:00:00 00:00:00 [facility] 5-10 Spiri t MIN - [facility] 2022-04-26 2022-04-26 Travel STC STC [id number] [facility] 00:00:00 [facility] 2022-04-26 2022-04-26 [facility] [id number] [facility] 00:00:00 [facility] 2022-04-12 2022-04-12 OL DIG E/M STLMLC STLMLC [id number] Common 00:00:00 00:00:00 [facility] 11-20 Spir it MIN - [facility] 2021-06-29 2021-06-29 OFFICE STLMLC STLMLC [id number] Co mmon 00:00:00 00:00:00 VISIT Spirit ESTAB PT - [facility] LEVEL 4 [facility] 2021-04-14 2021-04-14 Outpatient STLMLC STLMLC [id number] Common 00:00:00 00:00:00 [facility] 2020-05-25 2020-05-25 [facility] [id number] Common 10:00:00 10:00:[address] [facility] [address] [facility] 2020-04-19 2020-04-19 [facility] [id number] Common 13:25:00 13:25:00 [facility] [address] [facility] 2020-01-25 2020-01-25 [facility] [id number] Common 16:41:00 16:41:00 [facility] [address] [facility] 2019-12-15 2019-12-15 [facility] [id number] Common 09:00:00 09:00:00 [facility] [address] [facility] 2019-12-14 2019-12-14 [facility] [id number] Common 14:36:00 14:36:00 [address] [facility] [address] [facility] 2018-11-22 2018-11-22 Outpatient Eunice Dawsont [id number] Common 00:21:00 00:21:[address] [facility] [address] [facility] 2018-11-21 2018-11-21 Outpatient Eunice Lynn [id number] Common 09:45:00 09:45:00 [facility] [address] [facility] 2018-10-22 2018-10-22 Outpatient Eunice Dawsont [id number] Common 10:17:00 10:17:[address] [facility] [address] [facility] 2018-10-22 2018-10-22 Outpatient Eunice Dawsont [id number] Common 09:00:00 09:00:00 [facility] [address] Road [facility] Results Test Description Test Time Test Comments Results Result Comments Source TACROLIMUS LEVEL 2022-09-27 10:41:02 Test Item Value Reference Range Interpretation Comme nts TACROLIMUS BLOOD (BEAKER) 15.9 ng/mL 10.0-20.[address] performed on [employer] (test code = 657) ImmunoAspectiva y system with Chemiluminescen t Microparticle Immunoassay (CM IA) technology. Strawhat Sizer ID - ADMINCOMPREHENSIVE METABOLIC [id number] 09:21:36 Test Item Value Reference Range Interpretation Comments TOTAL PROTEIN 7.7 gm/dL 6.0-8.3 (BEAKER) (test code = 770) ALBUMIN (BEAKER) 4.3 g/dL 3.5-5.0 (test code = 1145) ALKALINE 81 U/L 40-150 PHOSPHATASE (BEAKER) (test code = 346) BILIRUBIN TOTAL 0.5 mg/dL 0.2-1.2 (BEAKER) (test code = 377) SODIUM (BEAKER) 138 meq/L 136-145 (test code = 381) POTASSIUM (BEAKER) 3.9 meq/L 3.5-5.1 (test code = 379) CHLORIDE (BEAKER) 98 meq/L 98-107 (test code = 382) CO2 (BEAKER) (test 26 meq/L 22-29 code = 355) BLOOD UREA 46 mg/dL 7-21 H NITROGEN (BEAKER) (test code = 354) CREATININE 7.94 mg/dL 0.57-1.25 H (BEAKER) (test code = 358) GLUCOSE RANDOM 110 mg/dL 70-105 H (BEAKER) (test code = 652) CALCIUM (BEAKER) 10.3 mg/dL 8.4-10.2 H (test code = 697) AST (SGOT) 9 U/L 5-34 (BEAKER) (test code = 353) ALT (SGPT) 15 U/L 6-55 (BEAKER) (test code = 347) EGFR (BEAKER) 5 Interpretatio n of eGFR (test code = 1092) mL/min/1.[address] age Description sq m Result G1 Stephanie l or high >=90 G2 Mildly decreased 60-89 G3a Mildl y to moderately 45-5 9 G3b Moderately to s everely 30-44 G4 Severl y decreased 15-29 G5 Kidney failure <15Reported eGF R is based on the CKD-EPI 2020 equation that d oes not use a race coefficientEsti mated GFR is not as accur ate as Creatinine Regina chaudhari in predicting glom erular filtration rate . Estimated GFR is not appl icable for dialysis patien ts Strawhat Sizer ID - [id number] 08:55:34 Test Item Value Reference Range Interpretation Comments MAGNESIUM (BEAKER) (test code = 1.9 mg/dL 1.6-2.6 627) Strawhat Sizer ID - [id number] 08:55:34 Test Item Value Reference Range Interpretation Comments PHOSPHORUS (BEAKER) (test code = 3.5 mg/dL 2.3-4.7 604) Strawhat Sizer ID - MARCOBILIRUBIN, [id number] 08:55:34 Test Item Value Reference Range Interpretation Comments BILIRUBIN DIRECT (BEAKER) (test 0.2 mg/dL 0.1-0.5 code = 706) Strawhat Sizer ID - MARCOCBC W/PLT COUNT & AUTO [id number] 08:27:04 Test Item Value Reference Range Interpretation Comments WHITE BLOOD CELL COUNT (BEAKER) 8.1 K/ L 3.5-10.5 (test code = 775) RED BLOOD CELL COUNT (BEAKER) 4.70 M/ L 3.93-5.22 (test code = 761) HEMOGLOBIN (BEAKER) (test code = 15.2 GM/DL 11.2-15.7 410) HEMATOCRIT (BEAKER) (test code = 46.5 % 34.1-44.9 H 411) MEAN CORPUSCULAR VOLUME (BEAKER) 99 fL 79-95 H (test code = 753) MEAN CORPUSCULAR HEMOGLOBIN 32.3 pg 25.6-32.2 H (BEAKER) (test code = 751) MEAN CORPUSCULAR HEMOGLOBIN CONC 32.7 GM/DL 32.2-35.5 (BEAKER) (test code = 752) RED CELL DISTRIBUTION WIDTH 12.9 % 11.7-14.4 (BEAKER) (test code = 412) PLATELET COUNT (BEAKER) (test 240 K/CU MM 150-450 code = 756) MEAN PLATELET VOLUME (BEAKER) 10.3 fL 9.4-12.3 (test code = 754) NUCLEATED RED BLOOD CELLS 0 /100 WBC 0-0 (BEAKER) (test code = 413) NEUTROPHILS RELATIVE PERCENT 62 % (BEAKER) (test code = 429) LYMPHOCYTES RELATIVE PERCENT 25 % (BEAKER) (test code = 430) MONOCYTES RELATIVE PERCENT 11 % (BEAKER) (test code = 431) EOSINOPHILS RELATIVE PERCENT 1 % (BEAKER) (test code = 432) BASOPHILS RELATIVE PERCENT 1 % (BEAKER) (test code = 437) NEUTROPHILS ABSOLUTE COUNT 4.97 K/ L 1.56-6.13 (BEAKER) (test code = 670) LYMPHOCYTES ABSOLUTE COUNT 1.99 K/ L 1.18-3.74 (BEAKER) (test code = 414) MONOCYTES ABSOLUTE COUNT (BEAKER) 0.87 K/ L 0.24-0.36 H (test code = 415) EOSINOPHILS ABSOLUTE COUNT 0.04 K/ L 0.04-0.36 (BEAKER) (test code = 416) BASOPHILS ABSOLUTE COUNT (BEAKER) 0.06 K/ L 0.01-0.08 (test code = 417) IMMATURE GRANULOCYTES-RELATIVE 1.90 % 0.00-1.00 H PERCENT (BEAKER) (test code = 2801) POC-Glucose [id number] 11:49:48 Test Item Value Reference Range Interpretation Comments POC-Glucose Meter (test 99 mg/dL 70-110 : TE STED AT [facility] code = 1538) 67[address] [facility], 770 30: Strawhat Sizer/Techni daren ID = [id number] for CHAUHAN, AGLAE Lab Interpretation (test Normal code = 27113-1) [facility] [id number] 11:49:48 Test Item Value Reference Range Interpretation Comments POC-GLUCOSE METER 99 mg/dL 70-110 : TESTED A T [facility] 6720 (BEAKER) (test code = [facility], 153) 96233: Strawhat Sizer/Techni daren ID = [id number] for HIDA LGO, AGLAE POCT-GLUCOSE [id number] 11:38:29 Test Item Value Reference Range Interpretation Comments POC-GLUCOSE METER 153 mg/dL 70-110 H : TESTED A T [facility] 6720 (BEAKER) (test code = [facility], 153) 45436: Strawhat Sizer/Techni daren ID = [id number] for Tiara Pagan POCT-GLUCOSE [id number] 11:37:34 Test Item Value Reference Range Interpretation Comments POC-GLUCOSE METER 200 mg/dL 70-110 H : TESTED A T [facility] 6720 (BEAKER) (test code = [facility], 153) 54823: Strawhat Sizer/Techni daren ID = [id number] for BA LDWIN, NEGRITO POCT-GLUCOSE [id number] 11:36:18 Test Item Value Reference Range Interpretation Comments POC-GLUCOSE METER 125 mg/dL 70-110 H : TESTED A T [facility] 6720 (BEAKER) (test code = [facility], 153) 92506: Strawhat Sizer/Techni daren ID = [id number] for BA LDWIN, NEGRITO POCT-GLUCOSE [id number] 11:35:12 Test Item Value Reference Range Interpretation Comments POC-GLUCOSE METER 110 mg/dL 70-110 : TESTED A T [facility] 6720 (BEAKER) (test code = [facility], 153) 90570: Strawhat Sizer/Techni daren ID = [id number] for BA LDWIN, NEGRITO POCT-GLUCOSE [id number] 11:25:11 Test Item Value Reference Range Interpretation Comments POC-GLUCOSE METER 130 mg/dL 70-110 H : TESTED A T [facility] 6720 (BEAKER) (test code = QUIN Quintana [place], 1538) 14003: Strawhat Sizer/Techni daren ID = [id number] for ROMARIO KO POCT-GLUCOSE [id number] 11:23:32 Test Item Value Reference Range Interpretation Comments POC-GLUCOSE METER 128 mg/dL 70-110 H : TESTED A T [facility] 6720 (BEAKER) (test code = QUIN Quintana [facility], 1538) 58508: Strawhat Sizer/Techni daren ID = [id number] for MORGAN GAONA TACROLIMUS [id number] 11:15:56 Test Item Value Reference Range Interpretation Comments TACROLIMUS BLOOD 9.5 ng/mL 10.0-20.0 L Test perfor med on Greer (BEAKER) (test code Architec t Immunoassay = 657) system with Chemiluminescen t Microparticle I mmunoassay (CMIA) technolo gy. Strawhat Sizer ID - ADMINCOMPREHENSIVE METABOLIC [id number] 09:40:04 Test Item Value Reference Range Interpretation Comments TOTAL PROTEIN 7.2 gm/dL 6.0-8.3 (BEAKER) (test code = 770) ALBUMIN (BEAKER) 4.1 g/dL 3.5-5.0 (test code = 1145) ALKALINE 78 U/L 40-150 PHOSPHATASE (BEAKER) (test code = 346) BILIRUBIN TOTAL 0.5 mg/dL 0.2-1.2 (BEAKER) (test code = 377) SODIUM (BEAKER) 137 meq/L 136-145 (test code = 381) POTASSIUM (BEAKER) 3.8 meq/L 3.5-5.1 (test code = 379) CHLORIDE (BEAKER) 99 meq/L 98-107 (test code = 382) CO2 (BEAKER) (test 24 meq/L 22-29 code = 355) BLOOD UREA 38 mg/dL 7-21 H NITROGEN (BEAKER) (test code = 354) CREATININE 4.82 mg/dL 0.57-1.25 H (BEAKER) (test code = 358) GLUCOSE RANDOM 142 mg/dL 70-105 H (BEAKER) (test code = 652) CALCIUM (BEAKER) 9.8 mg/dL 8.4-10.2 (test code = 697) AST (SGOT) 8 U/L 5-34 (BEAKER) (test code = 353) ALT (SGPT) 21 U/L 6-55 (BEAKER) (test code = 347) EGFR (BEAKER) 10 Interpretatio n of eGFR (test code = 1092) mL/min/1.[address] age Description sq m Result G1 Stephanie l or high >=90 G2 Mildly decreased 60-89 G3a Mildl y to moderately 45-5 9 G3b Moderately to s everely 30-44 G4 Severl y decreased 15-29 G5 Kidney failure <15Reported eGF R is based on the CKD-EPI 2020 equation that d oes not use a race coefficientEsti mated GFR is not as accur ate as Creatinine Regina fara in predicting glom erular filtration rate . Estimated GFR is not appl icable for dialysis patien ts Strawhat Sizer ID - JANET [id number] 09:29:34 Test Item Value Reference Range Interpretation Comments MAGNESIUM (BEAKER) (test code = 1.8 mg/dL 1.6-2.6 627) Strawhat Sizer ID - JANET [id number] 09:29:34 Test Item Value Reference Range Interpretation Comments PHOSPHORUS (BEAKER) (test code = 3.3 mg/dL 2.3-4.7 604) Strawhat Sizer ID - JANET MBILIRUBIN, [id number] 09:29:34 Test Item Value Reference Range Interpretation Comments BILIRUBIN DIRECT (BEAKER) (test 0.2 mg/dL 0.1-0.5 code = 706) Strawhat Sizer ID - JANET [id number] 09:12:27 Test Item Value Reference Range Interpretation Comments PARTIAL THROMBOPLASTIN TIME 29.2 seconds 22.5-36.0 (BEAKER) (test code = 760) PROTHROMBIN TIME/[id number] 09:12:07 Test Item Value Reference Range Interpretation Comments PROTIME (BEAKER) 14.0 seconds 11.9-14.2 (test code = 759) INR (BEAKER) (test 1.15 See_Comment [Automat ed message] code = 370) The system [employer] generated this result transmitted ref erence range: <=5.90. The reference range was not used to int erpret this result as normal/abnormal . RECOMMENDED COUMADIN/WARFARIN INR THERAPY RANGESSTANDARD DOSE: 2.0 - 3.0 Includes: PROPHYLAXIS for venous thrombosis, systemic embolization; TREATMENT for venous thrombosis and/or pulmonary embolus.HIGH RISK: Target INR is 2.5-3.5 for patients with mechanical heart valves.CBC W/PLT COUNT & AUTO [id number] 08:54:44 Test Item Value Reference Range Interpretation Comments WHITE BLOOD CELL COUNT (BEAKER) 7.3 K/ L 3.5-10.5 (test code = 775) RED BLOOD CELL COUNT (BEAKER) 3.93 M/ L 3.93-5.22 (test code = 761) HEMOGLOBIN (BEAKER) (test code = 13.0 GM/DL 11.2-15.7 410) HEMATOCRIT (BEAKER) (test code = 39.5 % 34.1-44.9 411) MEAN CORPUSCULAR VOLUME (BEAKER) 101 fL 79-95 H (test code = 753) MEAN CORPUSCULAR HEMOGLOBIN 33.1 pg 25.6-32.2 H (BEAKER) (test code = 751) MEAN CORPUSCULAR HEMOGLOBIN CONC 32.9 GM/DL 32.2-35.5 (BEAKER) (test code = 752) RED CELL DISTRIBUTION WIDTH 13.6 % 11.7-14.4 (BEAKER) (test code = 412) PLATELET COUNT (BEAKER) (test 181 K/CU MM 150-450 code = 756) MEAN PLATELET VOLUME (BEAKER) 10.3 fL 9.4-12.3 (test code = 754) NUCLEATED RED BLOOD CELLS 0 /100 WBC 0-0 (BEAKER) (test code = 413) NEUTROPHILS RELATIVE PERCENT 65 % (BEAKER) (test code = 429) LYMPHOCYTES RELATIVE PERCENT 23 % (BEAKER) (test code = 430) MONOCYTES RELATIVE PERCENT 9 % (BEAKER) (test code = 431) EOSINOPHILS RELATIVE PERCENT 1 % (BEAKER) (test code = 432) BASOPHILS RELATIVE PERCENT 1 % (BEAKER) (test code = 437) NEUTROPHILS ABSOLUTE COUNT 4.71 K/ L 1.56-6.13 (BEAKER) (test code = 670) LYMPHOCYTES ABSOLUTE COUNT 1.70 K/ L 1.18-3.74 (BEAKER) (test code = 414) MONOCYTES ABSOLUTE COUNT (BEAKER) 0.66 K/ L 0.24-0.36 H (test code = 415) EOSINOPHILS ABSOLUTE COUNT 0.10 K/ L 0.04-0.36 (BEAKER) (test code = 416) BASOPHILS ABSOLUTE COUNT (BEAKER) 0.04 K/ L 0.01-0.08 (test code = 417) IMMATURE GRANULOCYTES-RELATIVE 0.80 % 0.00-1.00 PERCENT (BEAKER) (test code = 2801) COMPREHENSIVE METABOLIC [id number] 13:36:26 Test Item Value Reference Range Interpretation Comments TOTAL PROTEIN 7.3 gm/dL 6.0-8.3 (BEAKER) (test code = 770) ALBUMIN (BEAKER) 4.0 g/dL 3.5-5.0 (test code = 1145) ALKALINE 68 U/L 40-150 PHOSPHATASE (BEAKER) (test code = 346) BILIRUBIN TOTAL 0.4 mg/dL 0.2-1.2 (BEAKER) (test code = 377) SODIUM (BEAKER) 138 meq/L 136-145 (test code = 381) POTASSIUM (BEAKER) 4.2 meq/L 3.5-5.1 (test code = 379) CHLORIDE (BEAKER) 100 meq/L 98-107 (test code = 382) CO2 (BEAKER) (test 26 meq/L 22-29 code = 355) BLOOD UREA 33 mg/dL 7-21 H NITROGEN (BEAKER) (test code = 354) CREATININE 3.95 mg/dL 0.57-1.25 H (BEAKER) (test code = 358) GLUCOSE RANDOM 102 mg/dL 70-105 (BEAKER) (test code = 652) CALCIUM (BEAKER) 9.5 mg/dL 8.4-10.2 (test code = 697) AST (SGOT) 14 U/L 5-34 (BEAKER) (test code = 353) ALT (SGPT) 22 U/L 6-55 (BEAKER) (test code = 347) EGFR (BEAKER) 13 Interpretatio n of eGFR (test code = 1092) mL/min/1.[address] age Description sq m Result G1 Stephanie l or high >=90 G2 Mildly decreased 60-89 G3a Mildl y to moderately 45-5 9 G3b Moderately to s everely 30-44 G4 Severl y decreased 15-29 G5 Kidney failure <15Reported eGF R is based on the CKD-EPI 2020 equation that d oes not use a race coefficientEsti mated GFR is not as accur ate as Creatinine Regina fara in predicting glom erular filtration rate . Estimated GFR is not appl icable for dialysis patien ts Strawhat Sizer ID - [id number] 13:05:48 Test Item Value Reference Range Interpretation Comments MAGNESIUM (BEAKER) (test code = 1.8 mg/dL 1.6-2.6 627) Strawhat Sizer ID - [id number] 13:05:48 Test Item Value Reference Range Interpretation Comments PHOSPHORUS (BEAKER) (test code = 1.7 mg/dL 2.3-4.7 L 604) Strawhat Sizer ID - ABEBEBILIRUBIN, [id number] 13:05:48 Test Item Value Reference Range Interpretation Comments BILIRUBIN DIRECT (BEAKER) (test 0.2 mg/dL 0.1-0.5 code = 706) Strawhat Sizer ID - [id number](MANUAL DIFFERENTIAL)[id number] 11:17:19 Test Item Value Reference Range Interpretation Comments NEUTROPHILS - REL (DIFF) (BEAKER) 34 % (test code = 1359) LYMPHOCYTES - REL (DIFF) (BEAKER) 25 % (test code = 1360) MONOCYTES - REL (DIFF) (BEAKER) 17 % (test code = 1361) EOSINOPHILS - REL (DIFF) (BEAKER) 1 % (test code = 1362) METAMYELOCYTES-REL (DIFF) (BEAKER) 3 % 0-0 H (test code = 258) MYELOCYTES-REL (DIFF) (BEAKER) 2 % 0-0 H (test code = 1594) BANDS - REL (DIFF) (BEAKER) (test 18 % 0-10 H code = 1348) NEUTROPHILS - ABS (DIFF) (BEAKER) 2.58 K/ L 1.80-8.00 (test code = 1365) LYMPHOCYTES - ABS (DIFF) (BEAKER) 1.90 K/ L 1.48-4.50 (test code = 1366) MONOCYTES - ABS (DIFF) (BEAKER) 1.29 K/ L 0.00-1.30 (test code = 1367) EOSINOPHILS - ABS (DIFF) (BEAKER) 0.08 K/ L 0.00-0.50 (test code = 1368) METAMYELOCTYES - ABS (DIFF) 0.23 K/ L 0.00-0.00 H (BEAKER) (test code = 261) BANDS-ABS (DIFF) (BEAKER) (test 1.4 K/ L 0.0-0.8 H code = 1349) MYELOCYTES-ABS (DIFF) (BEAKER) 0.15 K/ L 0.00-0.00 H (test code = 1593) TOTAL COUNTED (BEAKER) (test code = 100 1351) BANDS + SEGMENTED NEUTROPHILS 3.95 (BEAKER) (test code = 1352) WBC MORPHOLOGY (BEAKER) (test code Normal = 487) PLT MORPHOLOGY (BEAKER) (test code Normal = 486) ANISOCYTOSIS (BEAKER) (test code = 1+ 961) MACROCYTES (BEAKER) (test code = 1+ 964) POIKILOCYTES (BEAKER) (test code = 1+ few 966) POLYCHROMATOPHILLIC RBCS(BEAKER) 1+ few (test code = 478) CBC W/PLT COUNT & AUTO [id number] 11:17:18 Test Item Value Reference Range Interpretation Comments WHITE BLOOD CELL COUNT (BEAKER) 7.6 K/ L 3.5-10.5 (test code = 775) RED BLOOD CELL COUNT (BEAKER) 3.27 M/ L 3.93-5.22 L (test code = 761) HEMOGLOBIN (BEAKER) (test code = 11.2 GM/DL 11.2-15.7 410) HEMATOCRIT (BEAKER) (test code = 34.8 % 34.1-44.9 411) MEAN CORPUSCULAR VOLUME (BEAKER) 106 fL 79-95 H (test code = 753) MEAN CORPUSCULAR HEMOGLOBIN 34.3 pg 25.6-32.2 H (BEAKER) (test code = 751) MEAN CORPUSCULAR HEMOGLOBIN CONC 32.2 GM/DL 32.2-35.5 (BEAKER) (test code = 752) RED CELL DISTRIBUTION WIDTH 14.1 % 11.7-14.4 (BEAKER) (test code = 412) PLATELET COUNT (BEAKER) (test 270 K/CU MM 150-450 code = 756) MEAN PLATELET VOLUME (BEAKER) 10.1 fL 9.4-12.3 (test code = 754) NUCLEATED RED BLOOD CELLS 0 /100 WBC 0-0 (BEAKER) (test code = 413) TACROLIMUS [id number] 10:56:36 Test Item Value Reference Range Interpretation Comments TACROLIMUS BLOOD 9.0 ng/mL 10.0-20.0 L Test perfor med on Greer (BEAKER) (test code Architec t Immunoassay = 657) system with Chemiluminescen t Microparticle I mmunoassay (CMIA) technolo Strawhat Sizer ID - [id number] 09:11:41 Test Item Value Reference Range Interpretation Comments PARTIAL THROMBOPLASTIN TIME 28.2 seconds 22.5-36.0 (BEAKER) (test code = 760) PROTHROMBIN TIME/[id number] 09:10:57 Test Item Value Reference Range Interpretation Comments PROTIME (BEAKER) 14.6 seconds 11.9-14.2 H (test code = 759) INR (BEAKER) (test 1.21 See_Comment [Automat ed message] code = 370) The system [employer] generated this result transmitted ref erence range: <=5.90. The reference range was not used to int erpret this result as normal/abnormal . RECOMMENDED COUMADIN/WARFARIN INR THERAPY RANGESSTANDARD DOSE: 2.0 - 3.0 Includes: PROPHYLAXIS for venous thrombosis, systemic embolization; TREATMENT for venous thrombosis and/or pulmonary embolus.HIGH RISK: Target INR is 2.5-3.5 for patients with mechanical heart valves.EBV VIRAL [id number] 14:20:13 Test Item Value Reference Range Interpretation Comments EBV VIRAL LOAD - Negative or below See_Comment [Auto mated message] NEGATIVE (BEAKER) the linear range The sy stem which (test code = of the assay generated this 9664) (<500 IU /mL) result transmi tted reference range : <500 - >5,00 0,000 IU/mL. The refe rence range was not u sed to interpret th is result as normal/abnormal . This assay was performed by real-time PCR for the detection of the Dorothy-Marshall virus (EBV) gene EBNA-1. The test is composed of (1) DNA extraction from patient specimen, and (2) real-time PCR amplification and detection with [id number] primers and probes. A well-conserved region of the EBNA-1 gene is targeted, along with an internal control sequence used to confirm PCR amplification. Asymptomatic carriers and viral genetic variation, among other factors, can affect the accuracy of nucleic acidtesting; therefore, results should be interpreted in light of clinical data.This test was developed and its performance characteristics determined by the [facility] Pathology Department,Section of Molecular Pathology. It has not been cleared or approved by the U.S. Food and Drug Administration (FDA), since FDA approval is not required for clinical use of the test. Validation was done as required by The Clinical Laboratory Improvement Amendments of 1988.CMV PCR, QUANTITATIVE 2022-08-10 14:12:14 Test Item Value Reference Range Interpretation Comments CMV VIRAL LOAD - Negative or below See_Comment [Auto mated message] NEGATIVE (BEAKER) the linear range The sy stem which (test code = of the assay generated this 2558) (<300 IU/mL) result transmit kevin reference range : <300 - >3,00 0,000 IU/mL. The refe rence range was not u sed to interpret th is result as normal/abnormal . Cytomegalovirus (CMV) infection can cause significant disease in immunosuppressed patients. However,it is common for CMV to manifest as a limited infection which is of no clinical significance in immunosuppressed patients or in healthy individuals.Viral load measurements are helpful to identify clinical CMV infection and to guide the pre-emptive management of antiviral therapy. For treatment of CMV infection due to reactivation in transplant recipients, a threshold between 4,000 and 5,000 copies/mLis suggested. For treatment of primary CMV infection, a lower threshold can be used.CMV infection may also be monitored using weekly serial measurements. Serial measurements of CMV DNA viral load can be evaluated by identifying a 10-fold change, as well as assessing the CMV DNA viral load and the clinical context for each patient.The plasma CMV DNA viral load was detected using quantitative polymerase chain reaction and fluorescent monitoring of a specific hybridized probe. Genetic variation and other factors can affect the accuracy of nucleic acid testing. Therefore, the results should be interpreted in light of clinical data. A negative result may not exclude the presence of CMV disease.This test was developed and its performance characteristics determined by the [facility] Pathol ogy Department, Section of Molecular Pathology. It has not been cleared or approved by the U.S. Foodand Drug Administration (FDA), since FDA approval is not required for clinical use of the test. Validation was done as required by The Clinical Laboratory Improvement Amendments of 1988.CARDIOLIPIN ANTIBODIES, IGG AND [id number] 14:10:50 Test Item Value Reference Range Interpretation Comments ANTICARDIOLIPIN IGG ANTIBODY (BEAKER) < GPL <20.0 (test code = 712) ANTICARDIOLIPIN IGM ANTIBODY (BEAKER) < MPL <20.0 (test code = 713) Anticardiolipin IgG Result Interpretation: <20.0 GPL Normal>/= 20.0 GPL PositiveAnticardiolipin IgM Result Interpretation: <20.0 MPL Normal>/= 20.0 MPL PositiveTACROLIMUS [id number] 09:57:02 Test Item Value Reference Range Interpretation Comments TACROLIMUS BLOOD 8.8 ng/mL 10.0-20.0 L Test perfor med on [employer]pool (BEAKER) (test code Architec t Immunoassay = 657) system with Chemiluminescen t Microparticle I mmunoassay (CMIA) technolo gy. Strawhat Sizer ID - ADMINCBC W/PLT COUNT & AUTO [id number] 07:30:19 Test Item Value Reference Range Interpretation Comments WHITE BLOOD CELL COUNT (BEAKER) 4.1 K/ L 3.5-10.5 (test code = 775) RED BLOOD CELL COUNT (BEAKER) 2.66 M/ L 3.93-5.22 L (test code = 761) HEMOGLOBIN (BEAKER) (test code = 9.2 GM/DL 11.2-15.7 L 410) HEMATOCRIT (BEAKER) (test code = 27.3 % 34.1-44.9 L 411) MEAN CORPUSCULAR VOLUME (BEAKER) 103 fL 79-95 H (test code = 753) MEAN CORPUSCULAR HEMOGLOBIN 34.6 pg 25.6-32.2 H (BEAKER) (test code = 751) MEAN CORPUSCULAR HEMOGLOBIN CONC 33.7 GM/DL 32.2-35.5 (BEAKER) (test code = 752) RED CELL DISTRIBUTION WIDTH 13.3 % 11.7-14.4 (BEAKER) (test code = 412) PLATELET COUNT (BEAKER) (test 248 K/CU MM 150-450 code = 756) MEAN PLATELET VOLUME (BEAKER) 9.6 fL 9.4-12.3 (test code = 754) NUCLEATED RED BLOOD CELLS 0 /100 WBC 0-0 (BEAKER) (test code = 413) (CELLAVISION MANUAL DIFF)2022-08-06 07:30:19 Test Item Value Reference Range Interpretation Comments NEUTROPHILS - REL 52 % (CELLAVISION)(BEAKER) (test code = 2816) LYMPHOCYTES - REL 28 % (CELLAVISION)(BEAKER) (test code = 2817) MONOCYTES - REL 12 % (CELLAVISION)(BEAKER) (test code = 2818) BANDS - REL (CELLAVISION)(BEAKER) 6 % 0-10 (test code = 2826) ATYPICAL LYMPHOCYTES - REL 2 % 0-0 H (CELLAVISION)(BEAKER) (test code = 2829) NEUTROPHILS - ABS 2.13 K/ul 1.56-6.13 (CELLAVISION)(BEAKER) (test code = 2830) LYMPHOCYTES - ABS 1.15 K/ul 1.18-3.74 L (CELLAVISION)(BEAKER) (test code = 2831) MONOCYTES - ABS 0.49 K/uL 0.24-0.36 H (CELLAVISION)(BEAKER) (test code = 2832) BANDS - ABS (CELLAVISION)(BEAKER) 0.25 K/uL 0.00-0.80 (test code = 2840) ATYPICAL LYMPHOCYTES - ABS 0.08 K/uL 0.00-0.00 H (CELLAVISION)(BEAKER) (test code = 2858) TOTAL COUNTED (BEAKER) (test code = 100 1351) WBC MORPHOLOGY (BEAKER) (test code Normal = 487) GIANT PLATELETS (BEAKER) (test code Present = 313) ANISOCYTOSIS (BEAKER) (test code = 1+ few 961) MICROCYTES (BEAKER) (test code = 1+ few 965) ARTIFACT (CELLAVISION)(BEAKER) Present (test code = 3432) PLATELET CONCENTRATION Adequate (CELLAVISION)(BEAKER) (test code = 3438) Strawhat Sizer ID - pedro luis balsaraUser comments: Slide comments:COMPREHENSIVE METABOLIC [id number] 07:05:33 Test Item Value Reference Range Interpretation Comments TOTAL PROTEIN 5.8 gm/dL 6.0-8.3 L (BEAKER) (test code = 770) ALBUMIN (BEAKER) 3.1 g/dL 3.5-5.0 L (test code = 1145) ALKALINE 59 U/L 40-150 PHOSPHATASE (BEAKER) (test code = 346) BILIRUBIN TOTAL 0.4 mg/dL 0.2-1.2 (BEAKER) (test code = 377) SODIUM (BEAKER) 135 meq/L 136-145 L (test code = 381) POTASSIUM (BEAKER) 3.7 meq/L 3.5-5.1 (test code = 379) CHLORIDE (BEAKER) 99 meq/L 98-107 (test code = 382) CO2 (BEAKER) (test 26 meq/L 22-29 code = 355) BLOOD UREA 41 mg/dL 7-21 H NITROGEN (BEAKER) (test code = 354) CREATININE 7.44 mg/dL 0.57-1.25 H (BEAKER) (test code = 358) GLUCOSE RANDOM 115 mg/dL 70-105 H (BEAKER) (test code = 652) CALCIUM (BEAKER) 8.8 mg/dL 8.4-10.2 (test code = 697) AST (SGOT) 6 U/L 5-34 (BEAKER) (test code = 353) ALT (SGPT) 7 U/L 6-55 (BEAKER) (test code = 347) EGFR (BEAKER) 6 Interpretatio n of eGFR (test code = 1092) mL/min/1.[address] age Description sq m Result G1 Stephanie l or high >=90 G2 Mildly decreased 60-89 G3a Mildl y to moderately 45-5 9 G3b Moderately to s everely 30-44 G4 Severl y decreased 15-29 G5 Kidney failure <15Reported eGF R is based on the CKD-EPI 2021 equation that d oes not use a race coefficientEsti mated GFR is not as accur ate as Creatinine Regina fara in predicting glom erular filtration rate . Estimated GFR is not appl icable for dialysis patien ts Strawhat Sizer ID - PIAYA [id number] 07:04:29 Test Item Value Reference Range Interpretation Comments MAGNESIUM (BEAKER) (test code = 2.0 mg/dL 1.6-2.6 627) Strawhat Sizer ID - MARCY [id number] 07:04:29 Test Item Value Reference Range Interpretation Comments PHOSPHORUS (BEAKER) (test code = 2.2 mg/dL 2.3-4.7 L 604) Strawhat Sizer ID - MARCY [id number] 06:55:51 Test Item Value Reference Range Interpretation Comments PARTIAL THROMBOPLASTIN TIME 32.8 seconds 22.5-36.0 (BEAKER) (test code = 760) PROTHROMBIN TIME/[id number] 06:55:06 Test Item Value Reference Range Interpretation Comments PROTIME (BEAKER) 17.1 seconds 11.9-14.2 H (test code = 759) INR (BEAKER) (test 1.48 See_Comment [Automat ed message] code = 370) The system [employer] generated this result transmitted ref erence range: <=5.90. The reference range was not used to int erpret this result as normal/abnormal . RECOMMENDED COUMADIN/WARFARIN INR THERAPY RANGESSTANDARD DOSE: 2.0 - 3.0 Includes: PROPHYLAXIS for venous thrombosis, systemic embolization; TREATMENT for venous thrombosis and/or pulmonary embolus.HIGH RISK: Target INR is 2.5-3.5 for patients with mechanical heart valves.2D Echo W/Doppler(CW/PW/Color) 2022-08-05 17:24:37Ejection FractionSLEH ECHO HEARTLAB MKCKESSON [facility] W/PLT COUNT & AUTO [id number] 14:09:16 Test Item Value Reference Range Interpretation Comments WHITE BLOOD CELL COUNT (BEAKER) 4.3 K/ L 3.5-10.5 (test code = 775) RED BLOOD CELL COUNT (BEAKER) 2.86 M/ L 3.93-5.22 L (test code = 761) HEMOGLOBIN (BEAKER) (test code = 9.8 GM/DL 11.2-15.7 L 410) HEMATOCRIT (BEAKER) (test code = 29.4 % 34.1-44.9 L 411) MEAN CORPUSCULAR VOLUME (BEAKER) 103 fL 79-95 H (test code = 753) MEAN CORPUSCULAR HEMOGLOBIN 34.3 pg 25.6-32.2 H (BEAKER) (test code = 751) MEAN CORPUSCULAR HEMOGLOBIN CONC 33.3 GM/DL 32.2-35.5 (BEAKER) (test code = 752) RED CELL DISTRIBUTION WIDTH 13.3 % 11.7-14.4 (BEAKER) (test code = 412) PLATELET COUNT (BEAKER) (test 234 K/CU MM 150-450 code = 756) MEAN PLATELET VOLUME (BEAKER) 9.5 fL 9.4-12.3 (test code = 754) NUCLEATED RED BLOOD CELLS 0 /100 WBC 0-0 (BEAKER) (test code = 413) (CELLAVISION MANUAL DIFF)2022-08-05 14:09:16 Test Item Value Reference Range Interpretation Comments NEUTROPHILS - REL 53 % (CELLAVISION)(BEAKER) (test code = 2816) LYMPHOCYTES - REL 6 % (CELLAVISION)(BEAKER) (test code = 2817) MONOCYTES - REL 10 % (CELLAVISION)(BEAKER) (test code = 2818) BASOPHILS - REL 1 % (CELLAVISION)(BEAKER) (test code = 2820) METAMYELOCYTES - REL 3 % 0-0 H (CELLAVISION)(BEAKER) (test code = 2821) MYELOCYTES - REL 1 % 0-0 H (CELLAVISION)(BEAKER) (test code = 2822) BANDS - REL (CELLAVISION)(BEAKER) 25 % 0-10 H (test code = 2826) ATYPICAL LYMPHOCYTES - REL 1 % 0-0 H (CELLAVISION)(BEAKER) (test code = 2829) NEUTROPHILS - ABS 2.28 K/ul 1.56-6.13 (CELLAVISION)(BEAKER) (test code = 2830) LYMPHOCYTES - ABS 0.26 K/ul 1.18-3.74 L (CELLAVISION)(BEAKER) (test code = 2831) MONOCYTES - ABS 0.43 K/uL 0.24-0.36 H (CELLAVISION)(BEAKER) (test code = 2832) BASOPHILS - ABS 0.04 K/uL 0.01-0.08 (CELLAVISION)(BEAKER) (test code = 2835) METAMYELOCYTES - ABS 0.13 K/uL 0.00-0.00 H (CELLAVISION)(BEAKER) (test code = 2836) MYELOCYTES-ABS 0.04 K/uL 0.00-0.00 H (CELLAVISION)(BEAKER) (test code = 2837) BANDS - ABS (CELLAVISION)(BEAKER) 1.08 K/uL 0.00-0.80 H (test code = 2840) ATYPICAL LYMPHOCYTES - ABS 0.04 K/uL 0.00-0.00 H (CELLAVISION)(BEAKER) (test code = 2858) TOTAL COUNTED (BEAKER) (test code = 100 1351) PLT MORPHOLOGY (BEAKER) (test code Normal = 486) SMUDGE CELLS (BEAKER) (test code = Present 1371) POLYCHROMATOPHILLIC RBCS(BEAKER) 1+ few (test code = 478) ANISOCYTOSIS (BEAKER) (test code = 1+ few 961) MICROCYTES (BEAKER) (test code = 1+ few 965) PLATELET CONCENTRATION Adequate (CELLAVISION)(BEAKER) (test code = 3438) Strawhat Sizer ID - Vinicius Tipo-onUser comments: Slide comments:[id number] 13:43:59 Test Item Value Reference Range Interpretation Comments PARTIAL THROMBOPLASTIN TIME 36.3 seconds 22.5-36.0 H (BEAKER) (test code = 760) PROTHROMBIN TIME/[id number] 13:43:18 Test Item Value Reference Range Interpretation Comments PROTIME (BEAKER) 21.0 seconds 11.9-14.2 H (test code = 759) INR (BEAKER) (test 1.94 See_Comment [Automat ed message] code = 370) The system [employer] generated this result transmitted ref erence range: <=5.90. The reference range was not used to int erpret this result as normal/abnormal . RECOMMENDED COUMADIN/WARFARIN INR THERAPY RANGESSTANDARD DOSE: 2.0 - 3.0 Includes: PROPHYLAXIS for venous thrombosis, systemic embolization; TREATMENT for venous thrombosis and/or pulmonary embolus.HIGH RISK: Target INR is 2.5-3.5 for patients with mechanical heart valves.COMPREHENSIVE METABOLIC PANEL 2022-08-05 13:38:24 Test Item Value Reference Range Interpretation Comments TOTAL PROTEIN 6.3 gm/dL 6.0-8.3 (BEAKER) (test code = 770) ALBUMIN (BEAKER) 3.4 g/dL 3.5-5.0 L (test code = 1145) ALKALINE 66 U/L 40-150 PHOSPHATASE (BEAKER) (test code = 346) BILIRUBIN TOTAL 0.6 mg/dL 0.2-1.2 (BEAKER) (test code = 377) SODIUM (BEAKER) 132 meq/L 136-145 L (test code = 381) POTASSIUM (BEAKER) 3.6 meq/L 3.5-5.1 (test code = 379) CHLORIDE (BEAKER) 96 meq/L 98-107 L (test code = 382) CO2 (BEAKER) (test 24 meq/L 22-29 code = 355) BLOOD UREA 32 mg/dL 7-21 H NITROGEN (BEAKER) (test code = 354) CREATININE 5.99 mg/dL 0.57-1.25 H (BEAKER) (test code = 358) GLUCOSE RANDOM 158 mg/dL 70-105 H (BEAKER) (test code = 652) CALCIUM (BEAKER) 9.0 mg/dL 8.4-10.2 (test code = 697) AST (SGOT) 7 U/L 5-34 (BEAKER) (test code = 353) ALT (SGPT) 8 U/L 6-55 (BEAKER) (test code = 347) EGFR (BEAKER) 8 Interpretatio n of eGFR (test code = 1092) mL/min/1.[address] age Description sq m Result G1 Stephanie l or high >=90 G2 Mildly decreased 60-89 G3a Mildl y to moderately 45-5 9 G3b Moderately to s everely 30-44 G4 Severl y decreased 15-29 G5 Kidney failure <15Reported eGF R is based on the CKD-EPI 2020 equation that d oes not use a race coefficientEsti mated GFR is not as accur ate as Creatinine Regina chaudhari in predicting glom erular filtration rate . Estimated GFR is not appl icable for dialysis patien ts Strawhat Sizer ID - KWAKU [id number] 13:36:19 Test Item Value Reference Range Interpretation Comments MAGNESIUM (BEAKER) (test code = 1.9 mg/dL 1.6-2.6 627) Strawhat Sizer ID - KWAKU [id number] 13:36:19 Test Item Value Reference Range Interpretation Comments PHOSPHORUS (BEAKER) (test code = 2.4 mg/dL 2.3-4.7 604) Strawhat Sizer ID - KWAKU GTACROLIMUS [id number] 13:09:15 Test Item Value Reference Range Interpretation Comments TACROLIMUS BLOOD 9.0 ng/mL 10.0-20.0 L Test perfor med on Greer (Taktio) (test code Architec t Immunoassay = 657) system with Chemiluminescen t Microparticle I mmunoassay (CMIA) technolo gy. Strawhat Sizer ID - ADMINPOCT-GLUCOSE [id number] 18:12:34 Test Item Value Reference Range Interpretation Comments POC-GLUCOSE METER 212 mg/dL 70-110 H : TESTED A T [facility] 6720 (Taktio) (test code = [employer] [facility], 1538) 35722: Strawhat Sizer/Techni daren ID = [id number] for NEGRITO HEATON HEPATITIS B SURFACE [id number] 13:31:42 Test Item Value Reference Range Interpretation Comments HEPATITIS B SURFACE ANTIGEN (2) Nonreactive Nonreactive (Taktio) (test code = 2585) Specimen is considered negative for HBsAg.POCT-GLUCOSE [id number] 13:03:41 Test Item Value Reference Range Interpretation Comments POC-GLUCOSE METER 149 mg/dL 70-110 H : TESTED A T [facility] 6720 (Taktio) (test code = [employer] [facility], 1538) 99107: Strawhat Sizer/Techni daren ID = [id number] for NEGRITO HEATON TACROLIMUS [id number] 10:03:33 Test Item Value Reference Range Interpretation Comments TACROLIMUS BLOOD 10.7 ng/mL 10.0-20.0 Test perfor med on Greer (Taktio) (test code Architec t Immunoassay = 657) system with Chemiluminescen t Microparticle Immunoassay (CM IA) technology. Strawhat Sizer ID - [id number] ID - ADMINPOCT-GLUCOSE [id number] 08:20:37 Test Item Value Reference Range Interpretation Comments POC-GLUCOSE METER 127 mg/dL 70-110 H : TESTED A T [facility] 6720 (BEAKER) (test code = [place], 1538) [address]: Strawhat Sizer/Techni daren ID = [id number] for NEGRITO HEATON (CELLAVISION MANUAL DIFF)2022-08-04 08:13:33 Test Item Value Reference Range Interpretation Comments NEUTROPHILS - REL 60 % (CELLAVISION)(BEAKER) (test code = 2816) LYMPHOCYTES - REL 17 % (CELLAVISION)(BEAKER) (test code = 2817) MONOCYTES - REL 14 % (CELLAVISION)(BEAKER) (test code = 2818) BASOPHILS - REL 2 % (CELLAVISION)(BEAKER) (test code = 2820) METAMYELOCYTES - REL 1 % 0-0 H (CELLAVISION)(BEAKER) (test code = 2821) BANDS - REL (CELLAVISION)(BEAKER) 6 % 0-10 (test code = 2826) NEUTROPHILS - ABS 2.04 K/ul 1.56-6.13 (CELLAVISION)(BEAKER) (test code = 2830) LYMPHOCYTES - ABS 0.58 K/ul 1.18-3.74 L (CELLAVISION)(BEAKER) (test code = 2831) MONOCYTES - ABS 0.48 K/uL 0.24-0.36 H (CELLAVISION)(BEAKER) (test code = 2832) BASOPHILS - ABS 0.07 K/uL 0.01-0.08 (CELLAVISION)(BEAKER) (test code = 2835) METAMYELOCYTES - ABS 0.03 K/uL 0.00-0.00 H (CELLAVISION)(BEAKER) (test code = 2836) BANDS - ABS (CELLAVISION)(BEAKER) 0.20 K/uL 0.00-0.80 (test code = 2840) TOTAL COUNTED (BEAKER) (test code = 100 1351) WBC MORPHOLOGY (BEAKER) (test code Normal = 487) PLT MORPHOLOGY (BEAKER) (test code Normal = 486) POLYCHROMATOPHILLIC RBCS(BEAKER) 1+ few (test code = 478) ANISOCYTOSIS (BEAKER) (test code = 1+ few 961) ARTIFACT (CELLAVISION)(BEAKER) Present (test code = 3432) PLATELET CONCENTRATION Adequate (CELLAVISION)(BEAKER) (test code = 3438) Strawhat Sizer ID - Joan OverholtUser comments: Slide comments:CBC W/PLT COUNT & AUTO [id number] 08:13:32 Test Item Value Reference Range Interpretation Comments WHITE BLOOD CELL COUNT (BEAKER) 3.4 K/ L 3.5-10.5 L (test code = 775) RED BLOOD CELL COUNT (BEAKER) 2.82 M/ L 3.93-5.22 L (test code = 761) HEMOGLOBIN (BEAKER) (test code = 9.8 GM/DL 11.2-15.7 L 410) HEMATOCRIT (BEAKER) (test code = 29.2 % 34.1-44.9 L 411) MEAN CORPUSCULAR VOLUME (BEAKER) 104 fL 79-95 H (test code = 753) MEAN CORPUSCULAR HEMOGLOBIN 34.8 pg 25.6-32.2 H (BEAKER) (test code = 751) MEAN CORPUSCULAR HEMOGLOBIN CONC 33.6 GM/DL 32.2-35.5 (BEAKER) (test code = 752) RED CELL DISTRIBUTION WIDTH 13.3 % 11.7-14.4 (BEAKER) (test code = 412) PLATELET COUNT (BEAKER) (test 250 K/CU MM 150-450 code = 756) MEAN PLATELET VOLUME (BEAKER) 9.8 fL 9.4-12.3 (test code = 754) NUCLEATED RED BLOOD CELLS 0 /100 WBC 0-0 (BEAKER) (test code = 413) [id number] 07:43:17 Test Item Value Reference Range Interpretation Comments FERRITIN (BEAKER) (test code = 1369.77 ng/mL 5.00-275.00 H 361) Strawhat Sizer ID - ADMINIRON, TIBC, % SAT. (WITHOUT FERRITIN)2022-08-04 07:22:30 Test Item Value Reference Range Interpretation Comments IRON (BEAKER) (test code = 547) 45.0 ug/dL 40.0-160.0 TOTAL IRON BINDING CAPACITY 180 ug/dL 250-450 L (BEAKER) (test code = 769) IRON % SATURATION (2) (BEAKER) 25 % 20-55 (test code = 2590) Strawhat Sizer ID - [id number]-[id number] 07:16:22 Test Item Value Reference Range Interpretation Comments D-DIMER QUANTITATIVE (Taktio) 1.18 MG/L FEU <0.50 H (test code = 671) Intended Use: The D-Dimer Assay can be used to aid in the diagnosis of Deep Vein Thrombosis (DVT) and Pulmonary Embolism Disease (PED).In patients with low pre- test probability, various studies concerning STA Liatest D-dimer test have reported that with a cutoff value of 0.50 MG/L FEU, the Negative Predictive Value (NPV) regarding the exclusion of thrombosis is within 95-100% range.APTT 2022-08-04 07:14:23 Test Item Value Reference Range Interpretation Comments PARTIAL THROMBOPLASTIN TIME 39.9 seconds 22.5-36.0 H (Taktio) (test code = 760) [id number] 07:14:23 Test Item Value Reference Range Interpretation Comments PROTIME (Taktio) (test 15.1 seconds 11.9-14.2 H code = 759) INR (Taktio) (test 1.27 See_Comment [Automat ed code = 370) message] The sy stem which generated this result transmitted reference range : <=5.90. The reference range was not used to interpret this result as normal/abnormal . PARTIAL THROMBOPLASTIN 39.9 seconds 22.5-36.0 H TIME ([employer]aktio) (test code = 760) RECOMMENDED COUMADIN/WARFARIN INR THERAPY RANGESSTANDARD DOSE: 2.0 - 3.0 Includes: PROPHYLAXIS for venous thrombosis, systemic embolization; TREATMENT for venous thrombosis and/or pulmonary embolus.HIGH RISK: Target INR is 2.5-3.5 for patients with mechanical heart valves.POCT-GLUCOSE [id number] 17:22:55 Test Item Value Reference Range Interpretation Comments POC-GLUCOSE METER 107 mg/dL 70-110 : TESTED A T [facility] 6720 (Taktio) (test code = QUIN BO, 1538) [id number]: Strawhat Sizer/Techni daren ID = [id number] for MORGAN GAONA TACROLIMUS [id number] 12:31:43 Test Item Value Reference Range Interpretation Comments TACROLIMUS BLOOD 7.9 ng/mL 10.0-20.0 L Test perfor med on Greer (BEAKER) (test code Architec t Immunoassay = 657) system with Chemiluminescen t Microparticle I mmunoassay (CMIA) mitchel pascual. Strawhat Sizer ID - ADMINCOMPREHENSIVE METABOLIC [id number] 10:24:32 Test Item Value Reference Range Interpretation Comments TOTAL PROTEIN 6.9 gm/dL 6.0-8.3 (BEAKER) (test code = 770) ALBUMIN (BEAKER) 3.9 g/dL 3.5-5.0 (test code = 1145) ALKALINE 79 U/L 40-150 PHOSPHATASE (BEAKER) (test code = 346) BILIRUBIN TOTAL 1.0 mg/dL 0.2-1.2 (BEAKER) (test code = 377) SODIUM (BEAKER) 135 meq/L 136-145 L (test code = 381) POTASSIUM (BEAKER) 3.3 meq/L 3.5-5.1 L (test code = 379) CHLORIDE (BEAKER) 98 meq/L 98-107 (test code = 382) CO2 (BEAKER) (test 27 meq/L 22-29 code = 355) BLOOD UREA 19 mg/dL 7-21 NITROGEN (BEAKER) (test code = 354) CREATININE 3.13 mg/dL 0.57-1.25 H (BEAKER) (test code = 358) GLUCOSE RANDOM 104 mg/dL 70-105 (BEAKER) (test code = 652) CALCIUM (BEAKER) 9.5 mg/dL 8.4-10.2 (test code = 697) AST (SGOT) 8 U/L 5-34 (BEAKER) (test code = 353) ALT (SGPT) 8 U/L 6-55 (BEAKER) (test code = 347) EGFR (BEAKER) 17 Interpretatio n of eGFR (test code = 1092) mL/min/1.73 values St age Description sq m Result G1 Stephanie l or high >=90 G2 Mildly decreased 60-89 G3a Mildl y to moderately 45-5 9 G3b Moderately to s everely 30-44 G4 Severl y decreased 15-29 G5 Kidney failure <15Reported eGF R is based on the CKD-EPI 2020 equation that d oes not use a race coefficientEsti mated GFR is not as accur ate as Creatinine Regina chaudhari in predicting glom erular filtration rate . Estimated GFR is not appl icable for dialysis patien ts Strawhat Sizer ID - JANET [id number] 10:18:10 Test Item Value Reference Range Interpretation Comments MAGNESIUM (BEAKER) (test code = 1.7 mg/dL 1.6-2.6 627) Strawhat Sizer ID - JANET [id number] 10:18:10 Test Item Value Reference Range Interpretation Comments PHOSPHORUS (BEAKER) (test code = 2.3 mg/dL 2.3-4.7 604) Strawhat Sizer ID - JANET MBILIRUBIN, [id number] 10:18:10 Test Item Value Reference Range Interpretation Comments BILIRUBIN DIRECT (BEAKER) (test 0.6 mg/dL 0.1-0.5 H code = 706) Strawhat Sizer ID - JANET MCBC W/PLT COUNT & AUTO [id number] 10:01:51 Test Item Value Reference Range Interpretation Comments WHITE BLOOD CELL COUNT (BEAKER) 1.6 K/ L 3.5-10.5 L (test code = 775) RED BLOOD CELL COUNT (BEAKER) 2.89 M/ L 3.93-5.22 L (test code = 761) HEMOGLOBIN (BEAKER) (test code = 10.1 GM/DL 11.2-15.7 L 410) HEMATOCRIT (BEAKER) (test code = 30.1 % 34.1-44.9 L 411) MEAN CORPUSCULAR VOLUME (BEAKER) 104.2 fL 79.4-94.8 H (test code = 753) MEAN CORPUSCULAR HEMOGLOBIN 34.9 pg 25.6-32.2 H (BEAKER) (test code = 751) MEAN CORPUSCULAR HEMOGLOBIN CONC 33.6 GM/DL 32.2-35.5 (BEAKER) (test code = 752) RED CELL DISTRIBUTION WIDTH 17.6 % 11.7-14.4 H (BEAKER) (test code = 412) PLATELET COUNT (BEAKER) (test 266 K/CU MM 150-450 code = 756) MEAN PLATELET VOLUME (BEAKER) 10.1 fL 9.4-12.3 (test code = 754) NUCLEATED RED BLOOD CELLS 0 /100 WBC 0-0 (BEAKER) (test code = 413) (CELLAVISION MANUAL DIFF)2022-07-12 10:01:51 Test Item Value Reference Range Interpretation Comments NEUTROPHILS - REL 31 % (CELLAVISION)(BEAKER) (test code = 2816) LYMPHOCYTES - REL 52 % (CELLAVISION)(BEAKER) (test code = 2817) MONOCYTES - REL 5 % (CELLAVISION)(BEAKER) (test code = 2818) EOSINOPHILS - REL 3 % (CELLAVISION)(BEAKER) (test code = 2819) BASOPHILS - REL 3 % (CELLAVISION)(BEAKER) (test code = 2820) METAMYELOCYTES - REL 1 % 0-0 H (CELLAVISION)(BEAKER) (test code = 2821) BANDS - REL (CELLAVISION)(BEAKER) 4 % 0-10 (test code = 2826) BLASTS - REL (CELLAVISION)(BEAKER) 1 % 0-0 H (test code = 2827) NEUTROPHILS - ABS 0.50 K/ul 1.56-6.13 L (CELLAVISION)(BEAKER) (test code = 2830) LYMPHOCYTES - ABS 0.83 K/ul 1.18-3.74 L (CELLAVISION)(BEAKER) (test code = 2831) MONOCYTES - ABS 0.08 K/uL 0.24-0.36 L (CELLAVISION)(BEAKER) (test code = 2832) EOSINOPHILS - ABS 0.05 K/uL 0.04-0.36 (CELLAVISION)(BEAKER) (test code = 2834) BASOPHILS - ABS 0.05 K/uL 0.01-0.08 (CELLAVISION)(BEAKER) (test code = 2835) METAMYELOCYTES - ABS 0.02 K/uL 0.00-0.00 H (CELLAVISION)(BEAKER) (test code = 2836) BANDS - ABS (CELLAVISION)(BEAKER) 0.06 K/uL 0.00-0.80 (test code = 2840) BLASTS - ABS (CELLAVISION)(BEAKER) 0.02 K/uL 0.00-0.00 H (test code = 2845) TOTAL COUNTED (BEAKER) (test code 100 = 1351) MANUAL NRBC PER 100 CELLS (BEAKER) 1 /100 WBC 0-0 H (test code = 1353) WBC MORPHOLOGY (BEAKER) (test code Normal = 487) CLUMPED PLATELETS (BEAKER) (test Present code = 436) GIANT PLATELETS (BEAKER) (test Present code = 313) ANISOCYTOSIS (BEAKER) (test code = 1+ few 961) MICROCYTES (BEAKER) (test code = 1+ few 965) ARTIFACT (CELLAVISION)(BEAKER) Present (test code = 3432) PLATELET CONCENTRATION Adequate (CELLAVISION)(BEAKER) (test code = 3438) Strawhat Sizer ID - pedro luis Cha comments: Slide comments:TACROLIMUS LEVEL 2022-07-09 12:58:38 Test Item Value Reference Range Interpretation Comments TACROLIMUS BLOOD 8.4 ng/mL 10.0-20.0 L Test perfor med on Greer (BEAKER) (test code Architec t Immunoassay = 657) system with Chemiluminescen t Microparticle I mmunoassay (CMIA) technolo gy. CBC W/PLT COUNT & AUTO [id number] 10:46:31 Test Item Value Reference Range Interpretation Comments WHITE BLOOD CELL COUNT (BEAKER) 2.0 K/ L 3.5-10.5 L (test code = 775) RED BLOOD CELL COUNT (BEAKER) 2.56 M/ L 3.93-5.22 L (test code = 761) HEMOGLOBIN (BEAKER) (test code = 9.0 GM/DL 11.2-15.7 L 410) HEMATOCRIT (BEAKER) (test code = 26.9 % 34.1-44.9 L 411) MEAN CORPUSCULAR VOLUME (BEAKER) 105.1 fL 79.4-94.8 H (test code = 753) MEAN CORPUSCULAR HEMOGLOBIN 35.2 pg 25.6-32.2 H (BEAKER) (test code = 751) MEAN CORPUSCULAR HEMOGLOBIN CONC 33.5 GM/DL 32.2-35.5 (BEAKER) (test code = 752) RED CELL DISTRIBUTION WIDTH 17.8 % 11.7-14.4 H (BEAKER) (test code = 412) PLATELET COUNT (BEAKER) (test 233 K/CU MM 150-450 code = 756) MEAN PLATELET VOLUME (BEAKER) 9.9 fL 9.4-12.3 (test code = 754) NUCLEATED RED BLOOD CELLS 0 /100 WBC 0-0 (BEAKER) (test code = 413) (CELLAVISION MANUAL DIFF)2022-07-09 10:46:31 Test Item Value Reference Range Interpretation Comments NEUTROPHILS - REL 53 % (CELLAVISION)(BEAKER) (test code = 2816) LYMPHOCYTES - REL 43 % (CELLAVISION)(BEAKER) (test code = 2817) MONOCYTES - REL 2 % (CELLAVISION)(BEAKER) (test code = 2818) BASOPHILS - REL 2 % (CELLAVISION)(BEAKER) (test code = 2820) NEUTROPHILS - ABS 1.06 K/ul 1.56-6.13 L (CELLAVISION)(BEAKER) (test code = 2830) LYMPHOCYTES - ABS 0.86 K/ul 1.18-3.74 L (CELLAVISION)(BEAKER) (test code = 2831) MONOCYTES - ABS 0.04 K/uL 0.24-0.36 L (CELLAVISION)(BEAKER) (test code = 2832) BASOPHILS - ABS 0.04 K/uL 0.01-0.08 (CELLAVISION)(BEAKER) (test code = 2835) TOTAL COUNTED (BEAKER) (test code = 100 1351) RBC MORPHOLOGY (BEAKER) (test code Normal = 762) WBC MORPHOLOGY (BEAKER) (test code Normal = 487) PLT MORPHOLOGY (BEAKER) (test code Normal = 486) ARTIFACT (CELLAVISION)(BEAKER) Present (test code = 3432) PLATELET CONCENTRATION Adequate (CELLAVISION)(BEAKER) (test code = 3438) Strawhat Sizer ID - Sapna Tinsley comments: Slide comments:COMPREHENSIVE METABOLIC [id number] 09:58:02 Test Item Value Reference Range Interpretation Comments TOTAL PROTEIN 6.3 gm/dL 6.0-8.3 (BEAKER) (test code = 770) ALBUMIN (BEAKER) 3.5 g/dL 3.5-5.0 (test code = 1145) ALKALINE 74 U/L 40-150 PHOSPHATASE (BEAKER) (test code = 346) BILIRUBIN TOTAL 1.0 mg/dL 0.2-1.2 (BEAKER) (test code = 377) SODIUM (BEAKER) 136 meq/L 136-145 (test code = 381) POTASSIUM (BEAKER) 3.1 meq/L 3.5-5.1 L (test code = 379) CHLORIDE (BEAKER) 95 meq/L 98-107 L (test code = 382) CO2 (BEAKER) (test 33 meq/L 22-29 H code = 355) BLOOD UREA 41 mg/dL 7-21 H NITROGEN (BEAKER) (test code = 354) CREATININE 5.07 mg/dL 0.57-1.25 H (BEAKER) (test code = 358) GLUCOSE RANDOM 129 mg/dL 70-105 H (BEAKER) (test code = 652) CALCIUM (BEAKER) 9.2 mg/dL 8.4-10.2 (test code = 697) AST (SGOT) 7 U/L 5-34 (BEAKER) (test code = 353) ALT (SGPT) 6 U/L 6-55 (BEAKER) (test code = 347) EGFR (BEAKER) 9 Interpretatio n of eGFR (test code = 1092) mL/min/1.[address] age Description sq m Result G1 Stephanie l or high >=90 G2 Mildly decreased 60-89 G3a Mildl y to moderately 45-5 9 G3b Moderately to s everely 30-44 G4 Severl y decreased 15-29 G5 Kidne y failure <15Reported eGF R is based on the CKD-EPI 2021 equation that d oes not use a race coefficientEsti mated GFR is not as accur ate as Creatinine Regina fara in predicting glom erular filtration rate . Estimated GFR is not appl icable for dialysis patien ts Strawhat Sizer ID - MARCY [id number] 09:49:20 Test Item Value Reference Range Interpretation Comments MAGNESIUM (BEAKER) (test code = 1.6 mg/dL 1.6-2.6 627) Strawhat Sizer ID - MARCY [id number] 09:49:20 Test Item Value Reference Range Interpretation Comments PHOSPHORUS (BEAKER) (test code = 2.3 mg/dL 2.3-4.7 604) Strawhat Sizer ID - MARCY LBILIRUBIN, [id number] 09:49:20 Test Item Value Reference Range Interpretation Comments BILIRUBIN DIRECT (BEAKER) (test 0.6 mg/dL 0.1-0.5 H code = 706) Strawhat Sizer ID - MARCY LAFB culture + smear (non-sputum)2022-07-06 10:32:17 Test Item Value Reference Range Interpretation Comments Result (test code = No acid-fast bacilli 6463-4) isolated in 42 days AFB Smear (test code = No acid fast bacilli 70508-2) [facility]2022-07-06 10:32:17 Test Item Value Reference Range Interpretation Comments Result (test code = No acid-fast bacilli 6463-4) isolated in 42 days AFB Smear (test code = No acid fast bacilli 35134-8) [facility] (NON-SPUTUM)2022-07-06 10:32:17 Test Item Value Reference Range Interpretation Comments CULTURE (BEAKER) (test No acid-fast bacilli code = 1095) isolated in 42 days AFB SMEAR (AKER) No acid fast bacilli (test code = 994) seen TACROLIMUS [id number] 11:33:37 Test Item Value Reference Range Interpretation Comments TACROLIMUS BLOOD 11.4 ng/mL 10.0-20.0 Test perfor med on Greer (BEAKER) (test code Architec t Immunoassay = 657) system with Chemiluminescen t Microparticle Immunoassay (CM IA) technology. [id number] 09:18:08 Test Item Value Reference Range Interpretation Comments PHOSPHORUS (BEAKER) (test code = 0.9 mg/dL 2.3-4.7 LL 604) Strawhat Sizer ID - JANET MCOMPREHENSIVE METABOLIC [id number] 09:12:32 Test Item Value Reference Range Interpretation Comments TOTAL PROTEIN 6.5 gm/dL 6.0-8.3 (BEAKER) (test code = 770) ALBUMIN (BEAKER) 3.6 g/dL 3.5-5.0 (test code = 1145) ALKALINE 85 U/L 40-150 PHOSPHATASE (BEAKER) (test code = 346) BILIRUBIN TOTAL 1.1 mg/dL 0.2-1.2 (BEAKER) (test code = 377) SODIUM (BEAKER) 138 meq/L 136-145 (test code = 381) POTASSIUM (BEAKER) 3.0 meq/L 3.5-5.1 L (test code = 379) CHLORIDE (BEAKER) 100 meq/L 98-107 (test code = 382) CO2 (BEAKER) (test 31 meq/L 22-29 H code = 355) BLOOD UREA 15 mg/dL 7-21 NITROGEN (BEAKER) (test code = 354) CREATININE 2.85 mg/dL 0.57-1.25 H (BEAKER) (test code = 358) GLUCOSE RANDOM 105 mg/dL 70-105 (BEAKER) (test code = 652) CALCIUM (BEAKER) 9.3 mg/dL 8.4-10.2 (test code = 697) AST (SGOT) 7 U/L 5-34 (BEAKER) (test code = 353) ALT (SGPT) 7 U/L 6-55 (BEAKER) (test code = 347) EGFR (BEAKER) 19 Interpretatio n of eGFR (test code = 1092) mL/min/1.[address] age Description sq m Result G1 Stephanie l or high >=90 G2 Mildly decreased 60-89 G3a Mildl y to moderately 45-5 9 G3b Moderately to s everely 30-44 G4 Severl y decreased 15-29 G5 Kidney failure <15Reported eGF R is based on the CKD-EPI 2020 equation that d oes not use a race coefficientEsti mated GFR is not as accur ate as Creatinine Regina chaudhari in predicting glom erular filtration rate . Estimated GFR is not appl icable for dialysis patien ts Strawhat Sizer BRYAN GONZALES [id number] 08:56:47 Test Item Value Reference Range Interpretation Comments MAGNESIUM (BEAKER) (test code = 1.9 mg/dL 1.6-2.6 627) Strawhat Sizer BRYAN GOREILIRUBIN, [id number] 08:56:47 Test Item Value Reference Range Interpretation Comments BILIRUBIN DIRECT (BEAKER) (test 0.8 mg/dL 0.1-0.5 H code = 706) Strawhat Sizer BRYAN GONZALES MCBC W/PLT COUNT & AUTO [id number] 08:50:40 Test Item Value Reference Range Interpretation Comments WHITE BLOOD CELL COUNT (BEAKER) 2.7 K/ L 3.5-10.5 L (test code = 775) RED BLOOD CELL COUNT (BEAKER) 2.63 M/ L 3.93-5.22 L (test code = 761) HEMOGLOBIN (BEAKER) (test code = 9.1 GM/DL 11.2-15.7 L 410) HEMATOCRIT (BEAKER) (test code = 27.0 % 34.1-44.9 L 411) MEAN CORPUSCULAR VOLUME (BEAKER) 102.7 fL 79.4-94.8 H (test code = 753) MEAN CORPUSCULAR HEMOGLOBIN 34.6 pg 25.6-32.2 H (BEAKER) (test code = 751) MEAN CORPUSCULAR HEMOGLOBIN CONC 33.7 GM/DL 32.2-35.5 (BEAKER) (test code = 752) RED CELL DISTRIBUTION WIDTH 18.6 % 11.7-14.4 H (BEAKER) (test code = 412) PLATELET COUNT (BEAKER) (test 262 K/CU MM 150-450 code = 756) MEAN PLATELET VOLUME (BEAKER) 10.0 fL 9.4-12.3 (test code = 754) NUCLEATED RED BLOOD CELLS 0 /100 WBC 0-0 (BEAKER) (test code = 413) NEUTROPHILS RELATIVE PERCENT 52 % (BEAKER) (test code = 429) LYMPHOCYTES RELATIVE PERCENT 34 % (BEAKER) (test code = 430) MONOCYTES RELATIVE PERCENT 9 % (BEAKER) (test code = 431) EOSINOPHILS RELATIVE PERCENT 2 % (BEAKER) (test code = 432) BASOPHILS RELATIVE PERCENT 3 % (BEAKER) (test code = 437) NEUTROPHILS ABSOLUTE COUNT 1.38 K/ L 1.56-6.13 L (BEAKER) (test code = 670) LYMPHOCYTES ABSOLUTE COUNT 0.89 K/ L 1.18-3.74 L (BEAKER) (test code = 414) MONOCYTES ABSOLUTE COUNT (BEAKER) 0.23 K/ L 0.24-0.36 L (test code = 415) EOSINOPHILS ABSOLUTE COUNT 0.05 K/ L 0.04-0.36 (BEAKER) (test code = 416) BASOPHILS ABSOLUTE COUNT (BEAKER) 0.07 K/ L 0.01-0.08 (test code = 417) IMMATURE GRANULOCYTES-RELATIVE 1 % 0-1 PERCENT (BEAKER) (test code = 2801) TACROLIMUS [id number] 12:42:51 Test Item Value Reference Range Interpretation Comments TACROLIMUS BLOOD 9.5 ng/mL 10.0-20.0 L Test perfor med on Greer (BEAKER) (test code Architec t Immunoassay = 657) system with Chemiluminescen t Microparticle I mmunoassay (CMIA) technolo gy. Strawhat Sizer ID - ADMINCOMPREHENSIVE METABOLIC [id number] 11:35:44 Test Item Value Reference Range Interpretation Comments TOTAL PROTEIN 6.4 gm/dL 6.0-8.3 (BEAKER) (test code = 770) ALBUMIN (BEAKER) 3.5 g/dL 3.5-5.0 (test code = 1145) ALKALINE 112 U/L 40-150 PHOSPHATASE (BEAKER) (test code = 346) BILIRUBIN TOTAL 1.3 mg/dL 0.2-1.2 H (BEAKER) (test code = 377) SODIUM (BEAKER) 137 meq/L 136-145 (test code = 381) POTASSIUM (BEAKER) 2.7 meq/L 3.5-5.1 L (test code = 379) CHLORIDE (BEAKER) 101 meq/L 98-107 (test code = 382) CO2 (BEAKER) (test 28 meq/L 22-29 code = 355) BLOOD UREA 11 mg/dL 7-21 NITROGEN (BEAKER) (test code = 354) CREATININE 3.03 mg/dL 0.57-1.25 H (BEAKER) (test code = 358) GLUCOSE RANDOM 145 mg/dL 70-105 H (BEAKER) (test code = 652) CALCIUM (BEAKER) 9.1 mg/dL 8.4-10.2 (test code = 697) AST (SGOT) 8 U/L 5-34 (BEAKER) (test code = 353) ALT (SGPT) 10 U/L 6-55 (BEAKER) (test code = 347) EGFR (BEAKER) 17 Interpretatio n of eGFR (test code = 1092) mL/min/1.[address] age Description sq m Result G1 Stephanie l or high >=90 G2 Mildly decreased 60-89 G3a Mildl y to moderately 45-5 9 G3b Moderately to s everely 30-44 G4 Severl y decreased 15-29 G5 Kidne y failure <15Reported eGF R is based on the CKD-EPI 2020 equation that d oes not use a race coefficientEsti mated GFR is not as accur ate as Creatinine Regina chaudhari in predicting glom erular filtration rate . Estimated GFR is not appl icable for dialysis patien ts Strawhat Sizer ID - MARCY LOperator ID - MARCY [id number] 11:12:44 Test Item Value Reference Range Interpretation Comments PHOSPHORUS (BEAKER) (test code = 1.3 mg/dL 2.3-4.7 LL 604) Strawhat Sizer ID - MARCY LBILIRUBIN, [id number] 11:02:26 Test Item Value Reference Range Interpretation Comments BILIRUBIN DIRECT (BEAKER) (test 0.9 mg/dL 0.1-0.5 H code = 706) Strawhat Sizer ID - MARCY [id number] 11:02:25 Test Item Value Reference Range Interpretation Comments MAGNESIUM (BEAKER) (test code = 1.8 mg/dL 1.6-2.6 627) Strawhat Sizer ID - MARCY LCBC W/PLT COUNT & AUTO [id number] 10:28:10 Test Item Value Reference Range Interpretation Comments WHITE BLOOD CELL COUNT (BEAKER) 4.9 K/ L 3.5-10.5 (test code = 775) RED BLOOD CELL COUNT (BEAKER) 2.52 M/ L 3.93-5.22 L (test code = 761) HEMOGLOBIN (BEAKER) (test code = 8.6 GM/DL 11.2-15.7 L 410) HEMATOCRIT (BEAKER) (test code = 26.1 % 34.1-44.9 L 411) MEAN CORPUSCULAR VOLUME (BEAKER) 103.6 fL 79.4-94.8 H (test code = 753) MEAN CORPUSCULAR HEMOGLOBIN 34.1 pg 25.6-32.2 H (BEAKER) (test code = 751) MEAN CORPUSCULAR HEMOGLOBIN CONC 33.0 GM/DL 32.2-35.5 (BEAKER) (test code = 752) RED CELL DISTRIBUTION WIDTH 19.3 % 11.7-14.4 H (BEAKER) (test code = 412) PLATELET COUNT (BEAKER) (test 210 K/CU MM 150-450 code = 756) MEAN PLATELET VOLUME (BEAKER) 9.8 fL 9.4-12.3 (test code = 754) NUCLEATED RED BLOOD CELLS 0 /100 WBC 0-0 (BEAKER) (test code = 413) NEUTROPHILS RELATIVE PERCENT 72 % (BEAKER) (test code = 429) LYMPHOCYTES RELATIVE PERCENT 20 % (BEAKER) (test code = 430) MONOCYTES RELATIVE PERCENT 5 % (BEAKER) (test code = 431) EOSINOPHILS RELATIVE PERCENT 1 % (BEAKER) (test code = 432) BASOPHILS RELATIVE PERCENT 2 % (BEAKER) (test code = 437) NEUTROPHILS ABSOLUTE COUNT 3.50 K/ L 1.56-6.13 (BEAKER) (test code = 670) LYMPHOCYTES ABSOLUTE COUNT 0.99 K/ L 1.18-3.74 L (BEAKER) (test code = 414) MONOCYTES ABSOLUTE COUNT (BEAKER) 0.22 K/ L 0.24-0.36 L (test code = 415) EOSINOPHILS ABSOLUTE COUNT 0.06 K/ L 0.04-0.36 (BEAKER) (test code = 416) BASOPHILS ABSOLUTE COUNT (BEAKER) 0.08 K/ L 0.01-0.08 (test code = 417) IMMATURE GRANULOCYTES-RELATIVE 1 % 0-1 PERCENT (BEAKER) (test code = 2801) US, ABDOMINAL, [id number] 17:02:00Reason for Exam:->s/[facility] : 1965 Sex: FFINAL REPORT TECHNIQUE: Grayscale ultrasound of the abdomen with color Doppler and spectral Doppler ultrasound of the portal/hepatic vasculature. INDICATION: s/p liver transplant. COMPARISON: Ultrasound from 05/29/2022. FINDINGS: LIVER: Smooth liver contour. No focal liver lesions. HEPATIC VASCULATURE: Portal veins are patent with normal waveform and directionality. Flow velocity in the main portal vein is within normal limits. The hepatic arteries are patent with normal flow velocities, resistive indices, and waveforms. The hepatic veins and confluence are patent. The main portal vein measures 1.3 cm in diameter. The hepatic arterial resistive indices measure 0.8. The proper hepatic arterial acceleration time of the upper lobe normal at 0.07 seconds. BILIARY:Gallbladder: Surgically absentCommon bile duct measures 0.6 cm, within normal limits. No intrahepatic biliary ductal dilatation. A common bile duct stent is in place. PANCREAS: Incompletely visualized due to overlying bowel gas. The partially visualized pancreatic head, body, and tail are normal. SPLEEN: No splenomegaly. The spleen measures 10.7 cm in length. PERITONEUM: There is a trace amount of perihepatic ascites. Posterior liver, there is a more complex collection of fluid which measures 7 x 4.4 cm. KIDNEYS: Normal in size bilaterally. No hydronephrosis. No sonographically evident solid mass lesion. MIDLINE VASCULATURE: The visualized inferior vena cava is patent. The maximum visualized aortic diameter is 1.5 cm. Splenic artery and vein are patent. IMPRESSION: 1.The proper hepatic arterial acceleration time is at the upper limit of normal. Attention on follow-up imaging is recommended. 2.A hematoma posterior to theliver is similar in appearance to the prior examination. 3.There is a trace amount of perihepatic ascites. 4.The ultrasound appearance of the hepatic parenchyma is normal. Signed: Hero Chacko [facility], [place] Verified Date/Time: 06/21/2022 17:02:48 US, DUPLEX, [id number] 17:02:00Reason for exam:->s/p liver transplantE[facility]Name: [facility] : 1965 Sex: FFINALREPORT TECHNIQUE: Grayscale ultrasound of the abdomen with color Doppler and spectral Doppler ultrasound of the portal/hepatic vasculature. INDICATION: s/p liver transplant. COMPARISON: Ultrasound from 05/29/2022. FINDINGS: LIVER: Smooth liver contour. No focal liver lesions. HEPATIC VASCULATURE: Portal veins are patent with normal waveform and directionality. Flow velocity in themain portal vein is within normal limits. The hepatic arteries are patent with normal flow velocities, resistive indices, and waveforms. The hepatic veins and confluence are patent. The main portal vein measures 1.3 cm in diameter. The hepatic arterial resistive indices measure 0.8. The proper hepaticarterial acceleration time of the upper lobe normal at 0.07 seconds. BILIARY:Gallbladder: SurgicallyabsentCommon bile duct measures 0.6 cm, within normal limits. No intrahepatic biliary ductal dilatation. A common bile duct stent is in place. PANCREAS: Incompletely visualized due to overlying bowel gas. The partially visualized pancreatic head, body, and tail are normal. SPLEEN: No splenomegaly. Thespleen measures 10.7 cm in length. PERITONEUM: There is a trace amount of perihepatic ascites. Posterior liver, there is a more complex collection of fluid which measures 7 x 4.4 cm. KIDNEYS: Normal insize bilaterally. No hydronephrosis. No sonographically evident solid mass lesion. MIDLINE VASCULATUR E: The visualized inferior vena cava is patent. The maximum visualized aortic diameter is 1.5 cm. Splenic artery and vein are patent. IMPRESSION: 1.The proper hepatic arterial acceleration time is at the upper limit of normal. Attention on follow-up imaging is recommended. 2.A hematoma posterior to the liver is similar in appearance to the prior examination. 3.There is a trace amount of perihepatic ascites. 4.The ultrasound appearance of the hepatic parenchyma is normal. Signed: [facility] Verified Date/Time: 06/21/2022 17:02:48 TACROLIMUS [id number] 12:32:06 Test Item Value Reference Range Interpretation Comments TACROLIMUS BLOOD 9.6 ng/mL 10.0-20.0 L Test perfor med on Greer (BEAKER) (test code Architec t Immunoassay = 657) system with Chemiluminescen t Microparticle I mmunoassay (CMIA) technolo gy. Strawhat Sizer ID - ADMINCOMPREHENSIVE METABOLIC [id number] 11:03:11 Test Item Value Reference Range Interpretation Comments TOTAL PROTEIN 6.2 gm/dL 6.0-8.3 (BEAKER) (test code = 770) ALBUMIN (BEAKER) 3.3 g/dL 3.5-5.0 L (test code = 1145) ALKALINE 148 U/L 40-150 PHOSPHATASE (BEAKER) (test code = 346) BILIRUBIN TOTAL 1.6 mg/dL 0.2-1.2 H (BEAKER) (test code = 377) SODIUM (BEAKER) 138 meq/L 136-145 (test code = 381) POTASSIUM (BEAKER) 2.7 meq/L 3.5-5.1 L (test code = 379) CHLORIDE (BEAKER) 100 meq/L 98-107 (test code = 382) CO2 (BEAKER) (test 29 meq/L 22-29 code = 355) BLOOD UREA 11 mg/dL 7-21 NITROGEN (BEAKER) (test code = 354) CREATININE 2.66 mg/dL 0.57-1.25 H (BEAKER) (test code = 358) GLUCOSE RANDOM 112 mg/dL 70-105 H (BEAKER) (test code = 652) CALCIUM (BEAKER) 8.9 mg/dL 8.4-10.2 (test code = 697) AST (SGOT) 8 U/L 5-34 (BEAKER) (test code = 353) ALT (SGPT) 10 U/L 6-55 (BEAKER) (test code = 347) EGFR (BEAKER) 20 Interpretatio n of eGFR (test code = 1092) mL/min/1.[address] age Description sq m Result G1 Stephanie l or high >=90 G2 Mildly decreased 60-89 G3a Mildl y to moderately 45-5 9 G3b Moderately to s everely 30-44 G4 Severl y decreased 15-29 G5 Kidney failure <15Reported eGF R is based on the CKD-EPI 2020 equation that d oes not use a race coefficientEsti mated GFR is not as accur ate as Creatinine Regina chaudhari in predicting glom erular filtration rate . Estimated GFR is not appl icable for dialysis patien ts Strawhat Sizer ID Rosina GONZALES [id number] 11:03:00 Test Item Value Reference Range Interpretation Comments PHOSPHORUS (BEAKER) (test code = 1.2 mg/dL 2.3-4.7 LL 604) Strawhat Sizer ID - JANET [id number] 10:52:44 Test Item Value Reference Range Interpretation Comments MAGNESIUM (BEAKER) (test code = 1.8 mg/dL 1.6-2.6 627) Strawhat Sizer ID - JANET MBILIRUBIN, [id number] 10:52:44 Test Item Value Reference Range Interpretation Comments BILIRUBIN DIRECT (BEAKER) (test 1.1 mg/dL 0.1-0.5 H code = 706) Strawhat Sizer ID Rosina GONZAELS [facility] W/PLT COUNT & AUTO [id number] 10:18:29 Test Item Value Reference Range Interpretation Comments WHITE BLOOD CELL COUNT (BEAKER) 5.6 K/ L 3.5-10.5 (test code = 775) RED BLOOD CELL COUNT (BEAKER) 2.32 M/ L 3.93-5.22 L (test code = 761) HEMOGLOBIN (BEAKER) (test code = 8.0 GM/DL 11.2-15.7 L 410) HEMATOCRIT (BEAKER) (test code = 23.7 % 34.1-44.9 L 411) MEAN CORPUSCULAR VOLUME (BEAKER) 102.2 fL 79.4-94.8 H (test code = 753) MEAN CORPUSCULAR HEMOGLOBIN 34.5 pg 25.6-32.2 H (BEAKER) (test code = 751) MEAN CORPUSCULAR HEMOGLOBIN CONC 33.8 GM/DL 32.2-35.5 (BEAKER) (test code = 752) RED CELL DISTRIBUTION WIDTH 18.6 % 11.7-14.4 H (BEAKER) (test code = 412) PLATELET COUNT (BEAKER) (test 174 K/CU MM 150-450 code = 756) MEAN PLATELET VOLUME (BEAKER) 10.0 fL 9.4-12.3 (test code = 754) NUCLEATED RED BLOOD CELLS 0 /100 WBC 0-0 (BEAKER) (test code = 413) NEUTROPHILS RELATIVE PERCENT 77 % (BEAKER) (test code = 429) LYMPHOCYTES RELATIVE PERCENT 17 % (BEAKER) (test code = 430) MONOCYTES RELATIVE PERCENT 3 % (BEAKER) (test code = 431) EOSINOPHILS RELATIVE PERCENT 2 % (BEAKER) (test code = 432) BASOPHILS RELATIVE PERCENT 1 % (BEAKER) (test code = 437) NEUTROPHILS ABSOLUTE COUNT 4.25 K/ L 1.56-6.13 (BEAKER) (test code = 670) LYMPHOCYTES ABSOLUTE COUNT 0.94 K/ L 1.18-3.74 L (BEAKER) (test code = 414) MONOCYTES ABSOLUTE COUNT (BEAKER) 0.19 K/ L 0.24-0.36 L (test code = 415) EOSINOPHILS ABSOLUTE COUNT 0.09 K/ L 0.04-0.36 (BEAKER) (test code = 416) BASOPHILS ABSOLUTE COUNT (BEAKER) 0.05 K/ L 0.01-0.08 (test code = 417) IMMATURE GRANULOCYTES-RELATIVE 1 % 0-1 PERCENT (BEAKER) (test code = 2801) HEPATITIS C PCR, [id number] 16:26:57 Test Item Value Reference Range Interpretation Comments HCV RESULT COMPONENT HCV RNA not detected HCV RNA not detected (BEAKER) (test code = 2699) This test uses a Real-Time Polymerase Chain Reaction (RT-PCR) methodology and was performed using BAMBI Ampliprep/BAMBI TaqMan HCV test kit version 2.0 ([employer]).Reportable range for this assay is 15 - 100,000,000 IU per mL (1.18 - 8.00 Log IU/mL).HEPATITIS B PCR, [id number] 16:00:57 Test Item Value Reference Range Interpretation Comments HBV RESULT COMPONENT HBV DNA not detected HBV DNA not detected (BEAKER) (test code = 2701) This test uses a Real-Time Polymerase Chain Reaction (RT-PCR) methodology and was performed using BAMBI AmpliPrep/BAMBI TaqMan HBV Test, v2.0 ([employer]Reportable range for this assay is 20 - 170,000,000 IU per mL (1.30 - 8.23 Log IU/mL).HIV-1 PCR, [id number] 16:38:14 Test Item Value Reference Range Interpretation Comments HIV-1 RESULT HIV RNA not detected HIV RNA not detected COMPONENT (BEAKER) (test code = 2703) This test uses a Real-Time Polymerase Chain Reaction (RT-PCR) methodology to detect a highly conserved region of the HIV-1 gag gene and was performed using the BAMBI AmpliPrep/BAMBI TaqMan HIV-1 test kit version 2.0 ([employer]Reportable range for this assay is 20 - 10,000,000 copies per mL (1.3 - 7.0 Log copies/mL).TACROLIMUS [id number] 11:54:39 Test Item Value Reference Range Interpretation Comments TACROLIMUS BLOOD 6.5 ng/mL 10.0-20.0 L Test perfor med on [employer] (BEAKER) (test code Architec t Immunoassay = 657) system with Chemiluminescen t Microparticle I mmunoassay (CMIA) mitchel garcia Strawhat Sizer ID - adminBLOOD [id number] 11:00:54 Test Item Value Reference Range Interpretation Comments CULTURE (BEAKER) (test No growth in 5 days code = 1095) The specimen volume collected for this blood culture was below the optimum (10 mL per bottle or 20 mL total). Use of lower volumes may adversely affect recovery and/or detection times of some organisms.BLOOD [id number] 11:00:54 Test Item Value Reference Range Interpretation Comments CULTURE (BEAKER) (test No growth in 5 days code = 1095) COMPREHENSIVE METABOLIC [id number] 10:42:57 Test Item Value Reference Range Interpretation Comments TOTAL PROTEIN 5.8 gm/dL 6.0-8.3 L (BEAKER) (test code = 770) ALBUMIN (BEAKER) 3.0 g/dL 3.5-5.0 L (test code = 1145) ALKALINE 202 U/L 40-150 H PHOSPHATASE (BEAKER) (test code = 346) BILIRUBIN TOTAL 1.7 mg/dL 0.2-1.2 H (BEAKER) (test code = 377) SODIUM (BEAKER) 135 meq/L 136-145 L (test code = 381) POTASSIUM (BEAKER) 2.9 meq/L 3.5-5.1 L (test code = 379) CHLORIDE (BEAKER) 98 meq/L 98-107 (test code = 382) CO2 (BEAKER) (test 28 meq/L 22-29 code = 355) BLOOD UREA 12 mg/dL 7-21 NITROGEN (BEAKER) (test code = 354) CREATININE 2.69 mg/dL 0.57-1.25 H (BEAKER) (test code = 358) GLUCOSE RANDOM 131 mg/dL 70-105 H (BEAKER) (test code = 652) CALCIUM (BEAKER) 8.8 mg/dL 8.4-10.2 (test code = 697) AST (SGOT) 7 U/L 5-34 (BEAKER) (test code = 353) ALT (SGPT) 19 U/L 6-55 (BEAKER) (test code = 347) EGFR (BEAKER) 20 Interpretatio n of eGFR (test code = 1092) mL/min/1.[address] age Description sq m Result G1 Stephanie l or high >=90 G2 Mildly decreased 60-89 G3a Mildl y to moderately 45-5 9 G3b Moderately to s everely 30-44 G4 Severl y decreased 15-29 G5 Kidney failure <15Reported eGF R is based on the CKD-EPI 2020 equation that d oes not use a race coefficientEsti mated GFR is not as accur ate as Creatinine Regina chaudhari in predicting glom erular filtration rate . Estimated GFR is not appl icable for dialysis patien ts Strawhat Sizer ID - JANET [id number] 10:36:09 Test Item Value Reference Range Interpretation Comments MAGNESIUM (BEAKER) (test code = 1.7 mg/dL 1.6-2.6 627) Strawhat Sizer ID - JANET [id number] 10:36:09 Test Item Value Reference Range Interpretation Comments PHOSPHORUS (BEAKER) (test code = 1.8 mg/dL 2.3-4.7 L 604) Strawhat Sizer BRYAN GONZALES MBILIRUBIN, [id number] 10:36:09 Test Item Value Reference Range Interpretation Comments BILIRUBIN DIRECT (BEAKER) (test 1.2 mg/dL 0.1-0.5 H code = 706) Strawhat Sizer BRYAN GONZALES MCBC W/PLT COUNT & AUTO [id number] 09:59:16 Test Item Value Reference Range Interpretation Comments WHITE BLOOD CELL COUNT (BEAKER) 5.7 K/ L 3.5-10.5 (test code = 775) RED BLOOD CELL COUNT (BEAKER) 2.20 M/ L 3.93-5.22 L (test code = 761) HEMOGLOBIN (BEAKER) (test code = 7.4 GM/DL 11.2-15.7 L 410) HEMATOCRIT (BEAKER) (test code = 21.5 % 34.1-44.9 L 411) MEAN CORPUSCULAR VOLUME (BEAKER) 97.7 fL 79.4-94.8 H (test code = 753) MEAN CORPUSCULAR HEMOGLOBIN 33.6 pg 25.6-32.2 H (BEAKER) (test code = 751) MEAN CORPUSCULAR HEMOGLOBIN CONC 34.4 GM/DL 32.2-35.5 (BEAKER) (test code = 752) RED CELL DISTRIBUTION WIDTH 18.7 % 11.7-14.4 H (BEAKER) (test code = 412) PLATELET COUNT (BEAKER) (test 208 K/CU MM 150-450 code = 756) MEAN PLATELET VOLUME (BEAKER) 10.5 fL 9.4-12.3 (test code = 754) NUCLEATED RED BLOOD CELLS 0 /100 WBC 0-0 (BEAKER) (test code = 413) NEUTROPHILS RELATIVE PERCENT 80 % (BEAKER) (test code = 429) LYMPHOCYTES RELATIVE PERCENT 14 % (BEAKER) (test code = 430) MONOCYTES RELATIVE PERCENT 3 % (BEAKER) (test code = 431) EOSINOPHILS RELATIVE PERCENT 1 % (BEAKER) (test code = 432) BASOPHILS RELATIVE PERCENT 1 % (BEAKER) (test code = 437) NEUTROPHILS ABSOLUTE COUNT 4.53 K/ L 1.56-6.13 (BEAKER) (test code = 670) LYMPHOCYTES ABSOLUTE COUNT 0.82 K/ L 1.18-3.74 L (BEAKER) (test code = 414) MONOCYTES ABSOLUTE COUNT (BEAKER) 0.18 K/ L 0.24-0.36 L (test code = 415) EOSINOPHILS ABSOLUTE COUNT 0.07 K/ L 0.04-0.36 (BEAKER) (test code = 416) BASOPHILS ABSOLUTE COUNT (BEAKER) 0.04 K/ L 0.01-0.08 (test code = 417) IMMATURE GRANULOCYTES-RELATIVE 1 % 0-1 PERCENT (BEAKER) (test code = 2801) TACROLIMUS [id number] 12:14:50 Test Item Value Reference Range Interpretation Comments TACROLIMUS BLOOD 7.5 ng/mL 10.0-20.0 L Test perfor med on [employer] (BEAKER) (test code Architec t Immunoassay = 657) system with Chemiluminescen t Microparticle I mmunoassay (CMIA) technolo gy. Strawhat Sizer ID - adminCOMPREHENSIVE METABOLIC [id number] 09:14:53 Test Item Value Reference Range Interpretation Comments TOTAL PROTEIN 5.8 gm/dL 6.0-8.3 L Specimen sligh tly (BEAKER) (test hemolyzed code = 770) ALBUMIN (BEAKER) 3.0 g/dL 3.5-5.0 L Specimen sl ightly (test code = 1145) hemolyzed ALKALINE 226 U/L 40-150 H PHOSPHATASE (BEAKER) (test code = 346) BILIRUBIN TOTAL 1.7 mg/dL 0.2-1.2 H Specimen sli ghtly (BEAKER) (test hemolyzed code = 377) SODIUM (BEAKER) 135 meq/L 136-145 L (test code = 381) POTASSIUM (BEAKER) 3.7 meq/L 3.5-5.1 Specimen slightly (test code = 379) hemolyzed CHLORIDE (BEAKER) 98 meq/L 98-107 (test code = 382) CO2 (BEAKER) (test 28 meq/L 22-29 code = 355) BLOOD UREA 22 mg/dL 7-21 H NITROGEN (BEAKER) (test code = 354) CREATININE 3.70 mg/dL 0.57-1.25 H Specimen slight ly (BEAKER) (test hemolyzed code = 358) GLUCOSE RANDOM 114 mg/dL 70-105 H (BEAKER) (test code = 652) CALCIUM (BEAKER) 8.8 mg/dL 8.4-10.2 (test code = 697) AST (SGOT) 19 U/L 5-34 Specimen slight ly (BEAKER) (test hemolyzed code = 353) ALT (SGPT) 27 U/L 6-55 Specimen slight ly (BEAKER) (test hemolyzed code = 347) EGFR (BEAKER) 14 Interpretatio n of eGFR (test code = 1092) mL/min/1.[address] age Description sq m Result G1 Stephanie l or high >=90 G2 Mildly decreased 60-89 G3a Mildl y to moderately 45-5 9 G3b Moderately to s everely 30-44 G4 Severl y decreased 15-29 G5 Kidne y failure <15Reported eGF R is based on the CKD-EPI 2020 equation that d oes not use a race coefficientEsti mated GFR is not as accur ate as Creatinine Regina fara in predicting glom erular filtration rate . Estimated GFR is not appl icable for dialysis patien ts Strawhat Sizer ID - JANET [id number] 09:01:15 Test Item Value Reference Range Interpretation Comments MAGNESIUM (BEAKER) 1.6 mg/dL 1.6-2.6 Specimen slightly (test code = 627) hemolyzed Strawhat Sizer ID - JANET [id number] 09:01:15 Test Item Value Reference Range Interpretation Comments PHOSPHORUS (BEAKER) 2.3 mg/dL 2.3-4.7 Specimen slightly (test code = 604) hemolyzed Strawhat Sizer ID - JANET MBILIRUBIN, [id number] 09:01:15 Test Item Value Reference Range Interpretation Comments BILIRUBIN DIRECT 1.1 mg/dL 0.1-0.5 H Specimen sl ightly (BEAKER) (test code = hemoly zed 706) Strawhat Sizer ID - JANET MCBC W/PLT COUNT & AUTO [id number] 08:50:09 Test Item Value Reference Range Interpretation Comments WHITE BLOOD CELL COUNT (BEAKER) 5.4 K/ L 3.5-10.5 (test code = 775) RED BLOOD CELL COUNT (BEAKER) 2.15 M/ L 3.93-5.22 L (test code = 761) HEMOGLOBIN (BEAKER) (test code = 7.1 GM/DL 11.2-15.7 L 410) HEMATOCRIT (BEAKER) (test code = 21.0 % 34.1-44.9 L 411) MEAN CORPUSCULAR VOLUME (BEAKER) 97.7 fL 79.4-94.8 H (test code = 753) MEAN CORPUSCULAR HEMOGLOBIN 33.0 pg 25.6-32.2 H (BEAKER) (test code = 751) MEAN CORPUSCULAR HEMOGLOBIN CONC 33.8 GM/DL 32.2-35.5 (BEAKER) (test code = 752) RED CELL DISTRIBUTION WIDTH 18.9 % 11.7-14.4 H (BEAKER) (test code = 412) PLATELET COUNT (BEAKER) (test 192 K/CU MM 150-450 code = 756) MEAN PLATELET VOLUME (BEAKER) 10.8 fL 9.4-12.3 (test code = 754) NUCLEATED RED BLOOD CELLS 0 /100 WBC 0-0 (BEAKER) (test code = 413) NEUTROPHILS RELATIVE PERCENT 78 % (BEAKER) (test code = 429) LYMPHOCYTES RELATIVE PERCENT 16 % (BEAKER) (test code = 430) MONOCYTES RELATIVE PERCENT 4 % (BEAKER) (test code = 431) EOSINOPHILS RELATIVE PERCENT 1 % (BEAKER) (test code = 432) BASOPHILS RELATIVE PERCENT 1 % (BEAKER) (test code = 437) NEUTROPHILS ABSOLUTE COUNT 4.20 K/ L 1.56-6.13 (BEAKER) (test code = 670) LYMPHOCYTES ABSOLUTE COUNT 0.87 K/ L 1.18-3.74 L (BEAKER) (test code = 414) MONOCYTES ABSOLUTE COUNT (BEAKER) 0.19 K/ L 0.24-0.36 L (test code = 415) EOSINOPHILS ABSOLUTE COUNT 0.06 K/ L 0.04-0.36 (BEAKER) (test code = 416) BASOPHILS ABSOLUTE COUNT (BEAKER) 0.03 K/ L 0.01-0.08 (test code = 417) IMMATURE GRANULOCYTES-RELATIVE 1 % 0-1 PERCENT (BEAKER) (test code = 2801) TACROLIMUS [id number] 16:27:18 Test Item Value Reference Range Interpretation Comments TACROLIMUS BLOOD 8.6 ng/mL 10.0-20.0 L Test perfor med on Greer (BEAKER) (test code Architec t Immunoassay = 657) system with Chemiluminescen t Microparticle I mmunoassay (CMIA) technolo gy. Strawhat Sizer ID - adminCOMPREHENSIVE METABOLIC [id number] 15:34:00 Test Item Value Reference Range Interpretation Comments TOTAL PROTEIN 6.1 gm/dL 6.0-8.3 (BEAKER) (test code = 770) ALBUMIN (BEAKER) 3.2 g/dL 3.5-5.0 L (test code = 1145) ALKALINE 266 U/L 40-150 H PHOSPHATASE (BEAKER) (test code = 346) BILIRUBIN TOTAL 1.9 mg/dL 0.2-1.2 H (BEAKER) (test code = 377) SODIUM (BEAKER) 135 meq/L 136-145 L (test code = 381) POTASSIUM (BEAKER) 3.0 meq/L 3.5-5.1 L (test code = 379) CHLORIDE (BEAKER) 97 meq/L 98-107 L (test code = 382) CO2 (BEAKER) (test 27 meq/L 22-29 code = 355) BLOOD UREA 17 mg/dL 7-21 NITROGEN (BEAKER) (test code = 354) CREATININE 2.98 mg/dL 0.57-1.25 H (BEAKER) (test code = 358) GLUCOSE RANDOM 106 mg/dL 70-105 H (BEAKER) (test code = 652) CALCIUM (BEAKER) 8.7 mg/dL 8.4-10.2 (test code = 697) AST (SGOT) 13 U/L 5-34 (BEAKER) (test code = 353) ALT (SGPT) 30 U/L 6-55 (BEAKER) (test code = 347) EGFR (BEAKER) 18 Interpretatio n of eGFR (test code = 1092) mL/min/1.[address] age Description sq m Result G1 Stephanie l or high >=90 G2 Mildly decreased 60-89 G3a Mildl y to moderately 45-5 9 G3b Moderately to s everely 30-44 G4 Severl y decreased 15-29 G5 Kidney failure <15Reported eGF R is based on the CKD-EPI 2021 equation that d oes not use a race coefficientEsti mated GFR is not as accur ate as Creatinine Regina chaudhari in predicting glom erular filtration rate . Estimated GFR is not appl icable for dialysis patien ts Strawhat Sizer ID - [id number] 15:32:46 Test Item Value Reference Range Interpretation Comments MAGNESIUM (BEAKER) (test code = 1.7 mg/dL 1.6-2.6 627) Strawhat Sizer ID - [id number] 15:32:46 Test Item Value Reference Range Interpretation Comments PHOSPHORUS (BEAKER) (test code = 1.8 mg/dL 2.3-4.7 L 604) Strawhat Sizer ID - BSBILIRUBIN, [id number] 15:32:46 Test Item Value Reference Range Interpretation Comments BILIRUBIN DIRECT (BEAKER) (test 1.3 mg/dL 0.1-0.5 H code = 706) Strawhat Sizer ID - [id number] 13:32:22Reason for exam:->abnl liver function [facility] : 1965 Sex: FAn imaging unit was utilized for this procedure. No radiologist interpretation was requested. Refer to the EMR for findings. Refer to PACS for any patient radiation dose information.CBC W/PLT COUNT & AUTO [id number] 12:59:38 Test Item Value Reference Range Interpretation Comments WHITE BLOOD CELL COUNT (BEAKER) 5.3 K/ L 3.5-10.5 (test code = 775) RED BLOOD CELL COUNT (BEAKER) 2.24 M/ L 3.93-5.22 L (test code = 761) HEMOGLOBIN (BEAKER) (test code = 7.3 GM/DL 11.2-15.7 L 410) HEMATOCRIT (BEAKER) (test code = 22.6 % 34.1-44.9 L 411) MEAN CORPUSCULAR VOLUME (BEAKER) 100.9 fL 79.4-94.8 H (test code = 753) MEAN CORPUSCULAR HEMOGLOBIN 32.6 pg 25.6-32.2 H (BEAKER) (test code = 751) MEAN CORPUSCULAR HEMOGLOBIN CONC 32.3 GM/DL 32.2-35.5 (BEAKER) (test code = 752) RED CELL DISTRIBUTION WIDTH 18.8 % 11.7-14.4 H (BEAKER) (test code = 412) PLATELET COUNT (BEAKER) (test 226 K/CU MM 150-450 code = 756) MEAN PLATELET VOLUME (BEAKER) 11.1 fL 9.4-12.3 (test code = 754) NUCLEATED RED BLOOD CELLS 0 /100 WBC 0-0 (BEAKER) (test code = 413) NEUTROPHILS RELATIVE PERCENT 78 % (BEAKER) (test code = 429) LYMPHOCYTES RELATIVE PERCENT 15 % (BEAKER) (test code = 430) MONOCYTES RELATIVE PERCENT 4 % (BEAKER) (test code = 431) EOSINOPHILS RELATIVE PERCENT 1 % (BEAKER) (test code = 432) BASOPHILS RELATIVE PERCENT 1 % (BEAKER) (test code = 437) NEUTROPHILS ABSOLUTE COUNT 4.13 K/ L 1.56-6.13 (BEAKER) (test code = 670) LYMPHOCYTES ABSOLUTE COUNT 0.80 K/ L 1.18-3.74 L (BEAKER) (test code = 414) MONOCYTES ABSOLUTE COUNT (BEAKER) 0.20 K/ L 0.24-0.36 L (test code = 415) EOSINOPHILS ABSOLUTE COUNT 0.05 K/ L 0.04-0.36 (BEAKER) (test code = 416) BASOPHILS ABSOLUTE COUNT (BEAKER) 0.05 K/ L 0.01-0.08 (test code = 417) IMMATURE GRANULOCYTES-RELATIVE 1 % 0-1 PERCENT (BEAKER) (test code = 2801) [id number] 11:37:23 Test Item Value Reference Range Interpretation Comments POC-Potassium (test code 3.2 meq/L 3.6-5.5 L : T ESTED AT [facility] = 1540) [address] [facility], [address] [address]: Strawhat Sizer/Techni daren ID = [id number] for ISRA ADHIKARI Lab Interpretation (test Abnormal code = 26294-7) [id number] 11:37:23 Test Item Value Reference Range Interpretation Comments POC-Potassium (test code 3.2 meq/L 3.6-5.5 L : T ESTED AT [facility] = 1540) [address] [facility], [address]70 30: Strawhat Sizer/Techni daren ID = [id number] for ISRA ADHIKARI Lab Interpretation (test Abnormal code = 83683-5) [facility]PO[facility]-[id number] 11:37:23 Test Item Value Reference Range Interpretation Comments POC-POTASSIUM 3.2 meq/L 3.6-5.5 L : TESTED AT [facility] [address] ([facility]) (test code [facility], = 1540) [address]: Strawhat Sizer/Techni daren ID = [id number] for ISRA GUARDADO POC-Glucose [id number] 11:20:57 Test Item Value Reference Range Interpretation Comments POC-Glucose Meter (test 137 mg/dL 70-110 H : TE STED AT [facility] code = 1538) [address] [facility], [address]70 30: Strawhat Sizer/Techni daren ID = [id number] for ISRA ADHIKARI Lab Interpretation (test Abnormal code = 36695-9) [facility] [id number] 11:20:57 Test Item Value Reference Range Interpretation Comments POC-GLUCOSE METER 137 mg/dL 70-110 H : TESTED A T [facility] [address] ([facility]) (test code [facility], = 1538) [address]: Strawhat Sizer/Techni daren ID = [id number] for ISRA GUARDADO URINE [id number] 08:49:29 Test Item Value Reference Range Interpretation Comments CULTURE ([facility]) VANCOMYCIN A >100,000 co l/mL (test code = 1095) RESISTANT Vancomyci n ENTEROCOCCUS resistant FAECIUM Enterococcus faecium Ampicillin (test R code = 26) Linezolid (test code S = 40) Nitrofurantoin (test R code = 23) Tetracycline (test R code = 2) Vancomycin (test R code = 13) Daptomycin (test See_Comment [Automated code = 59) message] The system which generated this result transmitted reference range : Susceptible >4- 4 , Dose Dependen t Susceptible <=4 or >4 , Re. The reference range was not used to interpret this result as normal/abnormal . <10,000 col/mL Gram negative nkca40-95,000 col/mL skin floraFungus culture + [id number] 01:53:13 Test Item Value Reference Range Interpretation Comments Result (test code = No fungus isolated in 6463-4) 28 days Fungus Smear (test No fungi seen code = 1406) [facility] + [id number] 01:53:13 Test Item Value Reference Range Interpretation Comments Result (test code = No fungus isolated in 6463-4) 28 days Fungus Smear (test No fungi seen code = 1406) [facility] Center[facility] + [id number] 01:53:13 Test Item Value Reference Range Interpretation Comments CULTURE (BEAKER) (test No fungus isolated in code = 1095) 28 days FUNGUS SMEAR (BEAKER) No fungi seen (test code = 1406) CMV PCR, [id number] 16:58:37 Test Item Value Reference Range Interpretation Comments CMV VIRAL LOAD - Negative or below See_Comment [Auto mated message] NEGATIVE (BEAKER) the linear range The sy stem which (test code = of the assay generated this 2558) (<300 IU/mL) result transmit kevin reference range : <300 - >3,00 0,000 IU/mL. The refe rence range was not u sed to interpret th is result as normal/abnormal . Cytomegalovirus (CMV) infection can cause significant disease in immunosuppressed patients. However,it is common for CMV to manifest as a limited infection which is of no clinical significance in immunosuppressed patients or in healthy individuals.Viral load measurements are helpful to identify clinical CMV infection and to guide the pre-emptive management of antiviral therapy. For treatment of CMV infection due to reactivation in transplant recipients, a threshold between 4,000 and 5,000 copies/mLis suggested. For treatment of primary CMV infection, a lower threshold can be used.CMV infection may also be monitored using weekly serial measurements. Serial measurements of CMV DNA viral load can be evaluated by identifying a 10-fold change, as well as assessing the CMV DNA viral load and the clinical context for each patient.The plasma CMV DNA viral load was detected using quantitative polymerase chain reaction and fluorescent monitoring of a specific hybridized probe. Genetic variation and other factors can affect the accuracy of nucleic acid testing. Therefore, the results should be interpreted in light of clinical data. A negative result may not exclude the presence of CMV disease.This test was developed and its performance characteristics determined by the [facility] Pathol ogy Department, Section of Molecular Pathology. It has not been cleared or approved by the U.S. Foodand Drug Administration (FDA), since FDA approval is not required for clinical use of the test. Validation was done as required by The Clinical Laboratory Improvement Amendments of 1988.Cytomegalovirus(CMV) infection can cause significant disease in immunosuppressed patients. However, it is common for CMV to manifest as a limited infection which is of no clinical significance in immunosuppressed patients or in healthy individuals.Viral load measurements are helpful to identify clinical CMV infection and to guide the pre-emptive management of antiviral therapy. For treatment of CMV infection due toreactivation in transplant recipients, a threshold between 4,000 and 5,000 copies/mL is suggested. For treatment of primary CMV infection, a lower threshold can be used.CMV infection may also be monitored using weekly serial measurements. Serial measurements of CMV DNA viral load can be evaluated by id entifying a 10-fold change, as well as assessing the CMV DNA viral load and the clinical context foreach patient.The plasma CMV DNA viral load was detected using quantitative polymerase chain reactionand fluorescent monitoring of a specific hybridized probe. Genetic variation and other factors can affect the accuracy of nucleic acid testing. Therefore, the results should be interpreted in light of clinical data. A negative result may not exclude the presence of CMV disease.This test was developed and its performance characteristics determined by the [facility] Pathology Department,Section of Molecular Pathology. It has not been cleared or approved by the U.S. Food and Drug Adminis tration (FDA), since FDA approval is not required for clinical use of the test. Validation was done as required by The Clinical Laboratory Improvement Amendments of 1988.EBV Viral Load (Formerly [facility])2022-06-12 16:46:43 Test Item Value Reference Range Interpretation Comments EBV Viral Negative or below the See_Comment [Auto mated Load (test linear range of the message] The code = 2559) assay (<500 IU /mL) system w [facility] generated this result transmit kevin reference range : <500 - >5,000,000 IU/mL. The reference range was not used to interpret this result as normal/abnormal . ADRIA (test This assay was code = ADRIA) performed by real-time PCR for the detection of the Dorothy-Marshall virus (EBV) gene EBNA-1. The test is composed of (1) DNA extraction from patient specimen, and (2) real-time PCR amplification and detection with XDQA-4-dobjzdwd primers and probes. A well-conserved region of the EBNA-1 gene is targeted, along with an internal control sequence used to confirm PCR amplification. Asymptomatic carriers and viral genetic variation, among other factors, can affect the accuracy of nucleic acid testing; therefore, results should be interpreted in light of clinical data. This test was developed and its performance characteristics determined by the [facility] Pathology Department, Section of Molecular Pathology. It has not been cleared or approved by the U.S. Food and Drug Administration (FDA), since FDA approval is not required for clinical use of the test. Validation was done as required by The Clinical Laboratory Improvement Amendments of 1988. [facility] [id number] 16:46:43 Test Item Value Reference Range Interpretation Comments EBV VIRAL LOAD - Negative or below See_Comment [Auto mated message] NEGATIVE (BEAKER) the linear range The sy stem which (test code = of the assay generated this 2559) (<500 IU /mL) result transmi tted reference range : <500 - >5,00 0,000 IU/mL. The refe rence range was not u sed to interpret th is result as normal/abnormal . This assay was performed by real-time PCR for the detection of the Dorothy-Marshall virus (EBV) gene EBNA-1. The test is composed of (1) DNA extraction from patient specimen, and (2) real-time PCR amplification and detection with ANAW-4-vlacorct primers and probes. A well-conserved region of the EBNA-1 gene is targeted, along with an internal control sequence used to confirm PCR amplification. Asymptomatic carriers and viral genetic variation, among other factors, can affect the accuracy of nucleic acidtesting; therefore, results should be interpreted in light of clinical data.This test was developed and its performance characteristics determined by the [facility] Pathology Department,Section of Molecular Pathology. It has not been cleared or approved by the U.S. Food and Drug Administration (FDA), since FDA approval is not required for clinical use of the test. Validation was done as required by The Clinical Laboratory Improvement Amendments of 1988.TACROLIMUS LEVEL 2022-06-11 13:19:33 Test Item Value Reference Range Interpretation Comments TACROLIMUS BLOOD 8.8 ng/mL 10.0-20.0 L Test perfor med on Greer (BEAKER) (test code Architec t Immunoassay = 657) system with Chemiluminescen t Microparticle I mmunoassay (CMIA) techntrinity gy. Strawhat Sizer ID - adminCOMPREHENSIVE METABOLIC [id number] 10:21:24 Test Item Value Reference Range Interpretation Comments TOTAL PROTEIN 5.9 gm/dL 6.0-8.3 L (BEAKER) (test code = 770) ALBUMIN (BEAKER) 3.0 g/dL 3.5-5.0 L (test code = 1145) ALKALINE 364 U/L 40-150 H PHOSPHATASE (BEAKER) (test code = 346) BILIRUBIN TOTAL 2.3 mg/dL 0.2-1.2 H (BEAKER) (test code = 377) SODIUM (BEAKER) 131 meq/L 136-145 L (test code = 381) POTASSIUM (BEAKER) 3.6 meq/L 3.5-5.1 (test code = 379) CHLORIDE (BEAKER) 96 meq/L 98-107 L (test code = 382) CO2 (BEAKER) (test 26 meq/L 22-29 code = 355) BLOOD UREA 32 mg/dL 7-21 H NITROGEN (BEAKER) (test code = 354) CREATININE 4.15 mg/dL 0.57-1.25 H (BEAKER) (test code = 358) GLUCOSE RANDOM 125 mg/dL 70-105 H (BEAKER) (test code = 652) CALCIUM (BEAKER) 8.8 mg/dL 8.4-10.2 (test code = 697) AST (SGOT) 24 U/L 5-34 (BEAKER) (test code = 353) ALT (SGPT) 47 U/L 6-55 (BEAKER) (test code = 347) EGFR (BEAKER) 12 Interpretatio n of eGFR (test code = 1092) mL/min/1.[address] age Description sq m Result G1 Stephanie l or high >=90 G2 Mildly decreased 60-89 G3a Mildl y to moderately 45-5 9 G3b Moderately to s everely 30-44 G4 Severl y decreased 15-29 G5 Kidney failure <15Reported eGF R is based on the CKD-EPI 2020 equation that d oes not use a race coefficientEsti mated GFR is not as accur ate as Creatinine Regina fara in predicting glom erular filtration rate . Estimated GFR is not appl icable for dialysis patien ts Strawhat Sizer ID Rosina VIDAL LSpecimen slightly [id number] 10:15:25 Test Item Value Reference Range Interpretation Comments MAGNESIUM (BEAKER) (test code = 1.7 mg/dL 1.6-2.6 627) Strawhat Sizer ID - MARCY [id number] 10:15:25 Test Item Value Reference Range Interpretation Comments PHOSPHORUS (BEAKER) (test code = 1.8 mg/dL 2.3-4.7 L 604) Strawhat Sizer ID - MARCY LBILIRUBIN, [id number] 10:15:25 Test Item Value Reference Range Interpretation Comments BILIRUBIN DIRECT (BEAKER) (test 1.6 mg/dL 0.1-0.5 H code = 706) Strawhat Sizer ID Rosina VIDAL LGAMMA GLUTAMYL TRANSFERASE (GGT)2022-06-11 10:15:25 Test Item Value Reference Range Interpretation Comments GAMMA GLUTAMYL TRANSFERASE (BEAKER) 342 U/L 9-64 H (test code = 364) Strawhat Sizer ID Rosina VIDAL LSpecimen slightly ictericCBC W/PLT COUNT & AUTO [id number] 10:01:38 Test Item Value Reference Range Interpretation Comments WHITE BLOOD CELL COUNT (BEAKER) 5.9 K/ L 3.5-10.5 (test code = 775) RED BLOOD CELL COUNT (BEAKER) 2.46 M/ L 3.93-5.22 L (test code = 761) HEMOGLOBIN (BEAKER) (test code = 8.1 GM/DL 11.2-15.7 L 410) HEMATOCRIT (BEAKER) (test code = 24.4 % 34.1-44.9 L 411) MEAN CORPUSCULAR VOLUME (BEAKER) 99.2 fL 79.4-94.8 H (test code = 753) MEAN CORPUSCULAR HEMOGLOBIN 32.9 pg 25.6-32.2 H (BEAKER) (test code = 751) MEAN CORPUSCULAR HEMOGLOBIN CONC 33.2 GM/DL 32.2-35.5 (BEAKER) (test code = 752) RED CELL DISTRIBUTION WIDTH 18.8 % 11.7-14.4 H (BEAKER) (test code = 412) PLATELET COUNT (BEAKER) (test 220 K/CU MM 150-450 code = 756) MEAN PLATELET VOLUME (BEAKER) 11.1 fL 9.4-12.3 (test code = 754) NUCLEATED RED BLOOD CELLS 0 /100 WBC 0-0 (BEAKER) (test code = 413) NEUTROPHILS RELATIVE PERCENT 76 % (BEAKER) (test code = 429) LYMPHOCYTES RELATIVE PERCENT 13 % (BEAKER) (test code = 430) MONOCYTES RELATIVE PERCENT 8 % (BEAKER) (test code = 431) EOSINOPHILS RELATIVE PERCENT 1 % (BEAKER) (test code = 432) BASOPHILS RELATIVE PERCENT 1 % (BEAKER) (test code = 437) NEUTROPHILS ABSOLUTE COUNT 4.53 K/ L 1.56-6.13 (BEAKER) (test code = 670) LYMPHOCYTES ABSOLUTE COUNT 0.76 K/ L 1.18-3.74 L (BEAKER) (test code = 414) MONOCYTES ABSOLUTE COUNT (BEAKER) 0.48 K/ L 0.24-0.36 H (test code = 415) EOSINOPHILS ABSOLUTE COUNT 0.06 K/ L 0.04-0.36 (BEAKER) (test code = 416) BASOPHILS ABSOLUTE COUNT (BEAKER) 0.04 K/ L 0.01-0.08 (test code = 417) IMMATURE GRANULOCYTES-RELATIVE 1 % 0-1 PERCENT (BEAKER) (test code = 2801) TACROLIMUS [id number] 12:57:59 Test Item Value Reference Range Interpretation Comments TACROLIMUS BLOOD 9.0 ng/mL 10.0-20.0 L Test perfor med on Greer (BEAKER) (test code Architec t Immunoassay = 657) system with Chemiluminescen t Microparticle I mmunoassay (CMIA) technolo gy. Strawhat Sizer ID - adminCOMPREHENSIVE METABOLIC [id number] 09:38:40 Test Item Value Reference Range Interpretation Comments TOTAL PROTEIN 5.9 gm/dL 6.0-8.3 L (BEAKER) (test code = 770) ALBUMIN (BEAKER) 3.0 g/dL 3.5-5.0 L (test code = 1145) ALKALINE 268 U/L 40-150 H PHOSPHATASE (BEAKER) (test code = 346) BILIRUBIN TOTAL 2.5 mg/dL 0.2-1.2 H (BEAKER) (test code = 377) SODIUM (BEAKER) 136 meq/L 136-145 (test code = 381) POTASSIUM (BEAKER) 3.7 meq/L 3.5-5.1 (test code = 379) CHLORIDE (BEAKER) 100 meq/L 98-107 (test code = 382) CO2 (BEAKER) (test 28 meq/L 22-29 code = 355) BLOOD UREA 21 mg/dL 7-21 NITROGEN (BEAKER) (test code = 354) CREATININE 2.70 mg/dL 0.57-1.25 H (BEAKER) (test code = 358) GLUCOSE RANDOM 128 mg/dL 70-105 H (BEAKER) (test code = 652) CALCIUM (BEAKER) 8.6 mg/dL 8.4-10.2 (test code = 697) AST (SGOT) 16 U/L 5-34 (BEAKER) (test code = 353) ALT (SGPT) 31 U/L 6-55 (BEAKER) (test code = 347) EGFR (BEAKER) 20 Interpretatio n of eGFR (test code = 1092) mL/min/1.[address] age Description sq m Result G1 Stephanie l or high >=90 G2 Mildly decreased 60-89 G3a Mildl y to moderately 45-5 9 G3b Moderately to s everely 30-44 G4 Severl y decreased 15-29 G5 Kidney failure <15Reported eGF R is based on the CKD-EPI 2021 equation that d oes not use a race coefficientEsti mated GFR is not as accur ate as Creatinine Regina fara in predicting glom erular filtration rate . Estimated GFR is not appl icable for dialysis patien ts Strawhat Sizer ID - PISANDI LSpecimen slightly [id number] 09:38:03 Test Item Value Reference Range Interpretation Comments MAGNESIUM (BEAKER) (test code = 1.6 mg/dL 1.6-2.6 627) Strawhat Sizer ID - MARCY [id number] 09:38:03 Test Item Value Reference Range Interpretation Comments PHOSPHORUS (BEAKER) (test code = 1.7 mg/dL 2.3-4.7 L 604) Strawhat Sizer BRYAN OLIVAS, [id number] 09:38:03 Test Item Value Reference Range Interpretation Comments BILIRUBIN DIRECT (BEAKER) (test 1.7 mg/dL 0.1-0.5 H code = 706) Strawhat Sizer BRYAN VIDAL LCBC W/PLT COUNT & AUTO [id number] 09:15:18 Test Item Value Reference Range Interpretation Comments WHITE BLOOD CELL COUNT (BEAKER) 4.8 K/ L 3.5-10.5 (test code = 775) RED BLOOD CELL COUNT (BEAKER) 2.68 M/ L 3.93-5.22 L (test code = 761) HEMOGLOBIN (BEAKER) (test code = 8.8 GM/DL 11.2-15.7 L 410) HEMATOCRIT (BEAKER) (test code = 26.3 % 34.1-44.9 L 411) MEAN CORPUSCULAR VOLUME (BEAKER) 98.1 fL 79.4-94.8 H (test code = 753) MEAN CORPUSCULAR HEMOGLOBIN 32.8 pg 25.6-32.2 H (BEAKER) (test code = 751) MEAN CORPUSCULAR HEMOGLOBIN CONC 33.5 GM/DL 32.2-35.5 (BEAKER) (test code = 752) RED CELL DISTRIBUTION WIDTH 20.1 % 11.7-14.4 H (BEAKER) (test code = 412) PLATELET COUNT (BEAKER) (test 219 K/CU MM 150-450 code = 756) MEAN PLATELET VOLUME (BEAKER) 11.7 fL 9.4-12.3 (test code = 754) NUCLEATED RED BLOOD CELLS 0 /100 WBC 0-0 (BEAKER) (test code = 413) NEUTROPHILS RELATIVE PERCENT 80 % (BEAKER) (test code = 429) LYMPHOCYTES RELATIVE PERCENT 9 % (BEAKER) (test code = 430) MONOCYTES RELATIVE PERCENT 8 % (BEAKER) (test code = 431) EOSINOPHILS RELATIVE PERCENT 1 % (BEAKER) (test code = 432) BASOPHILS RELATIVE PERCENT 0 % (BEAKER) (test code = 437) NEUTROPHILS ABSOLUTE COUNT 3.81 K/ L 1.56-6.13 (BEAKER) (test code = 670) LYMPHOCYTES ABSOLUTE COUNT 0.44 K/ L 1.18-3.74 L (BEAKER) (test code = 414) MONOCYTES ABSOLUTE COUNT (BEAKER) 0.38 K/ L 0.24-0.36 H (test code = 415) EOSINOPHILS ABSOLUTE COUNT 0.06 K/ L 0.04-0.36 (BEAKER) (test code = 416) BASOPHILS ABSOLUTE COUNT (BEAKER) 0.02 K/ L 0.01-0.08 (test code = 417) IMMATURE GRANULOCYTES-RELATIVE 2 % 0-1 H PERCENT (BEAKER) (test code = 2801) HEPATITIS B PCR, [id number] 13:39:21 Test Item Value Reference Range Interpretation Comments HBV RESULT COMPONENT HBV DNA not detected HBV DNA not detected (BEAKER) (test code = 2701) This test uses a Real-Time Polymerase Chain Reaction (RT-PCR) methodology and was performed using BAMBI AmpliPrep/BAMBI TaqMan HBV Test, v2.0 ([employer]Reportable range for this assay is 20 - 170,000,000 IU per mL (1.30 - 8.23 Log IU/mL).HEPATITIS C PCR, [id number] 13:37:32 Test Item Value Reference Range Interpretation Comments HCV RESULT COMPONENT HCV RNA not detected HCV RNA not detected (BEAKER) (test code = 2699) This test uses a Real-Time Polymerase Chain Reaction (RT-PCR) methodology and was performed using B[employer] Ampliprep/BAMBI TaqMan HCV test kit version 2.0 ([employer]Reportable range for this assay is 15 - 100,000,000 IU per mL (1.18 - 8.00 Log IU/mL).HIV-1 PCR, [id number] 20:29:18 Test Item Value Reference Range Interpretation Comments HIV-1 RESULT HIV RNA not detected HIV RNA not detected COMPONENT (BEAKER) (test code = 2703) This test uses a Real-Time Polymerase Chain Reaction (RT-PCR) methodology to detect a highly conserved region of the HIV-1 gag gene and was performed using the BAMBI AmpliPrep/BAMBI TaqMan HIV-1 test kit version 2.0 ([employer]Reportable range for this assay is 20 - 10,000,000 copies per mL (1.3 - 7.0 Log copies/mL).TACROLIMUS [id number] 13:07:47 Test Item Value Reference Range Interpretation Comments TACROLIMUS BLOOD 5.3 ng/mL 10.0-20.0 L Test perfor med on Greer (BEAKER) (test code Architec t Immunoassay = 657) system with Chemiluminescen t Microparticle I mmunoassay (CMIA) mitchel pascual. Strawhat Sizer ID - adminVITAMIN D, [id number] 09:52:22 Test Item Value Reference Range Interpretation Comments VITAMIN D 25-OH (BEAKER) (test 11.9 ng/mL 6.6-49.9 code = 2764) Effective 07/24/2017: Reference Range ChangeNew: 6.6-49.9 ng/mL Previous: 13.0- 47.8 ng/mLRecommendedVitamin D Target Range: 30.0-40.0 ng/mLOperator ID - PEDRO LUIS B CBC W/PLT COUNT & AUTO [id number] 09:45:30 Test Item Value Reference Range Interpretation Comments WHITE BLOOD CELL COUNT (BEAKER) 5.2 K/ L 3.5-10.5 (test code = 775) RED BLOOD CELL COUNT (BEAKER) 2.72 M/ L 3.93-5.22 L (test code = 761) HEMOGLOBIN (BEAKER) (test code = 8.9 GM/DL 11.2-15.7 L 410) HEMATOCRIT (BEAKER) (test code = 26.7 % 34.1-44.9 L 411) MEAN CORPUSCULAR VOLUME (BEAKER) 98.2 fL 79.4-94.8 H (test code = 753) MEAN CORPUSCULAR HEMOGLOBIN 32.7 pg 25.6-32.2 H (BEAKER) (test code = 751) MEAN CORPUSCULAR HEMOGLOBIN CONC 33.3 GM/DL 32.2-35.5 (BEAKER) (test code = 752) RED CELL DISTRIBUTION WIDTH 20.5 % 11.7-14.4 H (BEAKER) (test code = 412) PLATELET COUNT (BEAKER) (test 196 K/CU MM 150-450 code = 756) MEAN PLATELET VOLUME (BEAKER) 11.8 fL 9.4-12.3 (test code = 754) NUCLEATED RED BLOOD CELLS 0 /100 WBC 0-0 (BEAKER) (test code = 413) NEUTROPHILS RELATIVE PERCENT 80 % (BEAKER) (test code = 429) LYMPHOCYTES RELATIVE PERCENT 8 % (BEAKER) (test code = 430) MONOCYTES RELATIVE PERCENT 8 % (BEAKER) (test code = 431) EOSINOPHILS RELATIVE PERCENT 1 % (BEAKER) (test code = 432) BASOPHILS RELATIVE PERCENT 0 % (BEAKER) (test code = 437) NEUTROPHILS ABSOLUTE COUNT 4.14 K/ L 1.56-6.13 (BEAKER) (test code = 670) LYMPHOCYTES ABSOLUTE COUNT 0.43 K/ L 1.18-3.74 L (BEAKER) (test code = 414) MONOCYTES ABSOLUTE COUNT (BEAKER) 0.41 K/ L 0.24-0.36 H (test code = 415) EOSINOPHILS ABSOLUTE COUNT 0.06 K/ L 0.04-0.36 (BEAKER) (test code = 416) BASOPHILS ABSOLUTE COUNT (BEAKER) 0.02 K/ L 0.01-0.08 (test code = 417) IMMATURE GRANULOCYTES-RELATIVE 3 % 0-1 H PERCENT (BEAKER) (test code = 2801) COMPREHENSIVE METABOLIC [id number] 09:44:25 Test Item Value Reference Range Interpretation Comments TOTAL PROTEIN 5.9 gm/dL 6.0-8.3 L (BEAKER) (test code = 770) ALBUMIN (BEAKER) 3.0 g/dL 3.5-5.0 L (test code = 1145) ALKALINE 87 U/L 40-150 PHOSPHATASE (BEAKER) (test code = 346) BILIRUBIN TOTAL 2.5 mg/dL 0.2-1.2 H (BEAKER) (test code = 377) SODIUM (BEAKER) 136 meq/L 136-145 (test code = 381) POTASSIUM (BEAKER) 3.7 meq/L 3.5-5.1 (test code = 379) CHLORIDE (BEAKER) 101 meq/L 98-107 (test code = 382) CO2 (BEAKER) (test 26 meq/L 22-29 code = 355) BLOOD UREA 26 mg/dL 7-21 H NITROGEN (BEAKER) (test code = 354) CREATININE 3.01 mg/dL 0.57-1.25 H (BEAKER) (test code = 358) GLUCOSE RANDOM 124 mg/dL 70-105 H (BEAKER) (test code = 652) CALCIUM (BEAKER) 8.4 mg/dL 8.4-10.2 (test code = 697) AST (SGOT) 11 U/L 5-34 (BEAKER) (test code = 353) ALT (SGPT) 10 U/L 6-55 (BEAKER) (test code = 347) EGFR (BEAKER) 18 Interpretatio n of eGFR (test code = 1092) mL/min/1.[address] age Description sq m Result G1 Stephanie l or high >=90 G2 Mildly decreased 60-89 G3a Mildl y to moderately 45-5 9 G3b Moderately to s everely 30-44 G4 Severl y decreased 15-29 G5 Kidney failure <15Reported eGF R is based on the CKD-EPI 2020 equation that d oes not use a race coefficientEsti mated GFR is not as accur ate as Creatinine Regina fara in predicting glom erular filtration rate . Estimated GFR is not appl icable for dialysis patien ts Strawhat Sizer ID - MARCY LSpecimen slightly ictericBILIRUBIN, [id number] 09:35:55 Test Item Value Reference Range Interpretation Comments BILIRUBIN DIRECT (BEAKER) (test 1.7 mg/dL 0.1-0.5 H code = 706) Strawhat Sizer ID - MARCY [id number] 09:35:54 Test Item Value Reference Range Interpretation Comments MAGNESIUM (BEAKER) (test code = 1.6 mg/dL 1.6-2.6 627) Strawhat Sizer ID - MARCY [id number] 09:35:54 Test Item Value Reference Range Interpretation Comments PHOSPHORUS (BEAKER) (test code = 2.3 mg/dL 2.3-4.7 604) Strawhat Sizer ID - MARCY LPOCT-GLUCOSE [id number] 18:38:28 Test Item Value Reference Range Interpretation Comments POC-GLUCOSE METER 122 mg/dL 70-110 H : Will Rep eat Test: (BEAKER) (test code = TESTED AT [facility] [address]) [place], [address]: Strawhat Sizer/Techni daren ID = [id number] for MA RSHALL (V), NETTIE CMV PCR, [id number] 17:38:00 Test Item Value Reference Range Interpretation Comments CMV VIRAL LOAD - Negative or below See_Comment [Auto mated message] NEGATIVE (BUDDY) the linear range The sy stem which (test code = of the assay generated this 2554) (<300 IU/mL) result transmit kevin reference range : <300 - >3,00 0,000 IU/mL. The refe rence range was not u sed to interpret th is result as normal/abnormal . Cytomegalovirus (CMV) infection can cause significant disease in immunosuppressed patients. However,it is common for CMV to manifest as a limited infection which is of no clinical significance in immunosuppressed patients or in healthy individuals.Viral load measurements are helpful to identify clinical CMV infection and to guide the pre-emptive management of antiviral therapy. For treatment of CMV infection due to reactivation in transplant recipients, a threshold between 4,000 and 5,000 copies/mLis suggested. For treatment of primary CMV infection, a lower threshold can be used.CMV infection may also be monitored using weekly serial measurements. Serial measurements of CMV DNA viral load can be evaluated by identifying a 10-fold change, as well as assessing the CMV DNA viral load and the clinical context for each patient.The plasma CMV DNA viral load was detected using quantitative polymerase chain reaction and fluorescent monitoring of a specific hybridized probe. Genetic variation and other factors can affect the accuracy of nucleic acid testing. Therefore, the results should be interpreted in light of clinical data. A negative result may not exclude the presence of CMV disease.This test was developed and its performance characteristics determined by the [facility] Pathol ogy Department, Section of Molecular Pathology. It has not been cleared or approved by the U.S. Foodand Drug Administration (FDA), since FDA approval is not required for clinical use of the test. Validation was done as required by The Clinical Laboratory Improvement Amendments of 1988.POCT-GLUCOSE METER 2022-06-04 12:08:26 Test Item Value Reference Range Interpretation Comments POC-GLUCOSE METER 146 mg/dL 70-110 H : TESTED A T [facility] [address] (BUDDY) (test code = [place], 1538) [address]: Strawhat Sizer/Techni daren ID = [id number] for NEGRITO HEATON CBC W/PLT COUNT & AUTO [id number] 10:58:28 Test Item Value Reference Range Interpretation Comments WHITE BLOOD CELL COUNT (BEAKER) 6.5 K/ L 3.5-10.5 (test code = 775) RED BLOOD CELL COUNT (BEAKER) 2.57 M/ L 3.93-5.22 L (test code = 761) HEMOGLOBIN (BEAKER) (test code = 8.3 GM/DL 11.2-15.7 L 410) HEMATOCRIT (BEAKER) (test code = 24.6 % 34.1-44.9 L 411) MEAN CORPUSCULAR VOLUME (BEAKER) 95.7 fL 79.4-94.8 H (test code = 753) MEAN CORPUSCULAR HEMOGLOBIN 32.3 pg 25.6-32.2 H (BEAKER) (test code = 751) MEAN CORPUSCULAR HEMOGLOBIN CONC 33.7 GM/DL 32.2-35.5 (BEAKER) (test code = 752) RED CELL DISTRIBUTION WIDTH 19.8 % 11.7-14.4 H (BEAKER) (test code = 412) PLATELET COUNT (BEAKER) (test 171 K/CU MM 150-450 code = 756) MEAN PLATELET VOLUME (BEAKER) 11.6 fL 9.4-12.3 (test code = 754) NUCLEATED RED BLOOD CELLS 0 /100 WBC 0-0 (BEAKER) (test code = 413) NEUTROPHILS RELATIVE PERCENT 85 % (BEAKER) (test code = 429) LYMPHOCYTES RELATIVE PERCENT 5 % (BEAKER) (test code = 430) MONOCYTES RELATIVE PERCENT 6 % (BEAKER) (test code = 431) EOSINOPHILS RELATIVE PERCENT 1 % (BEAKER) (test code = 432) BASOPHILS RELATIVE PERCENT 0 % (BEAKER) (test code = 437) NEUTROPHILS ABSOLUTE COUNT 5.55 K/ L 1.56-6.13 (BEAKER) (test code = 670) LYMPHOCYTES ABSOLUTE COUNT 0.31 K/ L 1.18-3.74 L (BEAKER) (test code = 414) MONOCYTES ABSOLUTE COUNT (BEAKER) 0.40 K/ L 0.24-0.36 H (test code = 415) EOSINOPHILS ABSOLUTE COUNT 0.07 K/ L 0.04-0.36 (BEAKER) (test code = 416) BASOPHILS ABSOLUTE COUNT (BEAKER) 0.02 K/ L 0.01-0.08 (test code = 417) IMMATURE GRANULOCYTES-RELATIVE 2 % 0-1 H PERCENT (BEAKER) (test code = 2801) TACROLIMUS [id number] 10:06:37 Test Item Value Reference Range Interpretation Comments TACROLIMUS BLOOD 4.3 ng/mL 10.0-20.0 L Test perfor med on Greer (BEAKER) (test code Architec t Immunoassay = 657) system with Chemiluminescen t Microparticle I mmunoassay (CMIA) technolo gy. Strawhat Sizer ID - ADMINPOCT-GLUCOSE [id number] 08:04:14 Test Item Value Reference Range Interpretation Comments POC-GLUCOSE METER 122 mg/dL 70-110 H : TESTED A T [facility] [address] (BEAKER) (test code = [place], 1538) [address]: Strawhat Sizer/Techni daren ID = [id number] for BA NEGRITO STEWART TSH/FREE T4 IF [id number] 07:07:14 Test Item Value Reference Range Interpretation Comments THYROID STIMULATING HORMONE 1.137 uIU/mL 0.350-4.940 (BEAKER) (test code = 772) Strawhat Sizer ID - MITCHCOMPREHENSIVE METABOLIC [id number] 07:05:27 Test Item Value Reference Range Interpretation Comments TOTAL PROTEIN 5.0 gm/dL 6.0-8.3 L (BEAKER) (test code = 770) ALBUMIN (BEAKER) 2.5 g/dL 3.5-5.0 L (test code = 1145) ALKALINE 69 U/L 40-150 PHOSPHATASE (BEAKER) (test code = 346) BILIRUBIN TOTAL 2.2 mg/dL 0.2-1.2 H (BEAKER) (test code = 377) SODIUM (BEAKER) 133 meq/L 136-145 L (test code = 381) POTASSIUM (BEAKER) 3.6 meq/L 3.5-5.1 (test code = 379) CHLORIDE (BEAKER) 100 meq/L 98-107 (test code = 382) CO2 (BEAKER) (test 23 meq/L 22-29 code = 355) BLOOD UREA 50 mg/dL 7-21 H NITROGEN (BEAKER) (test code = 354) CREATININE 4.49 mg/dL 0.57-1.25 H (BEAKER) (test code = 358) GLUCOSE RANDOM 138 mg/dL 70-105 H (BEAKER) (test code = 652) CALCIUM (BEAKER) 7.7 mg/dL 8.4-10.2 L (test code = 697) AST (SGOT) 5 U/L 5-34 (BEAKER) (test code = 353) ALT (SGPT) 8 U/L 6-55 (BEAKER) (test code = 347) EGFR (BEAKER) 11 Interpretatio n of eGFR (test code = 1092) mL/min/1.[address] age Description sq m Result G1 Stephanie l or high >=90 G2 Mildly decreased 60-89 G3a Mildl y to moderately 45-5 9 G3b Moderately to s everely 30-44 G4 Severl y decreased 15-29 G5 Kidney failure <15Reported eGF R is based on the CKD-EPI 2020 equation that d oes not use a race coefficientEsti mated GFR is not as accur ate as Creatinine Regina fara in predicting glom erular filtration rate . Estimated GFR is not appl icable for dialysis patien ts Strawhat Sizer ID - MARCY LHEPATIC FUNCTION [id number] 07:05:16 Test Item Value Reference Range Interpretation Comments TOTAL PROTEIN (BEAKER) (test code = 5.0 gm/dL 6.0-8.3 L 770) ALBUMIN (BEAKER) (test code = 1145) 2.5 g/dL 3.5-5.0 L BILIRUBIN TOTAL (BEAKER) (test code 2.2 mg/dL 0.2-1.2 H = 377) BILIRUBIN DIRECT (BEAKER) (test 1.5 mg/dL 0.1-0.5 H code = 706) ALKALINE PHOSPHATASE (BEAKER) (test 69 U/L 40-150 code = 346) AST (SGOT) (BEAKER) (test code = 5 U/L 5-34 353) ALT (SGPT) (BEAKER) (test code = 8 U/L 6-55 347) Strawhat Sizer ID - MARCY [id number] 07:03:40 Test Item Value Reference Range Interpretation Comments PHOSPHORUS (BEAKER) (test code = 3.4 mg/dL 2.3-4.7 604) Strawhat Sizer ID - MARCY [id number] 07:03:39 Test Item Value Reference Range Interpretation Comments MAGNESIUM (BEAKER) (test code = 1.4 mg/dL 1.6-2.6 L 627) Strawhat Sizer ID - MARCY [id number] 06:44:53 Test Item Value Reference Range Interpretation Comments PREALBUMIN (BEAKER) (test code = 27 mg/dL 14-45 586) Strawhat Sizer ID - ABEBEIMMUNOGLOBULIN G (IGG)2022-06-04 06:44:53 Test Item Value Reference Range Interpretation Comments IMMUNOGLOBULIN G (IGG) 875 mg/dL See_Comment [Aut omated message] (BEAKER) (test code = The sy stem which 427) generated this result transmit kevin reference range : 540-1,822. The reference range was not used to interpret this result as normal/abnormal . Strawhat Sizer ID - ABEBECALCIUM, [id number] 06:26:44 Test Item Value Reference Range Interpretation Comments CALCIUM IONIZED (BEAKER) (test 1.06 mmol/L 1.12-1.27 L code = 698) PH, BLOOD (BEAKER) (test code = 7.42 1810) PROTHROMBIN [id number] 06:16:54 Test Item Value Reference Range Interpretation Comments PROTIME (BEAKER) 14.6 seconds 11.9-14.2 H (test code = 759) INR (BEAKER) (test 1.17 See_Comment [Automat ed message] code = 370) The system [employer] generated this result transmitted ref erence range: <=5.90. The reference range was not used to int erpret this result as normal/abnormal . RECOMMENDED COUMADIN/WARFARIN INR THERAPY RANGESSTANDARD DOSE: 2.0 - 3.0 Includes: PROPHYLAXIS for venous thrombosis, systemic embolization; TREATMENT for venous thrombosis and/or pulmonary embolus.HIGH RISK: Target INR is 2.5-3.5 for patients with mechanical heart valves.CBC W/PLT COUNT & AUTO [id number] 06:09:47 Test Item Value Reference Range Interpretation Comments WHITE BLOOD CELL COUNT (BEAKER) 5.5 K/ L 3.5-10.5 (test code = 775) RED BLOOD CELL COUNT (BEAKER) 2.36 M/ L 3.93-5.22 L (test code = 761) HEMOGLOBIN (BEAKER) (test code = 7.5 GM/DL 11.2-15.7 L 410) HEMATOCRIT (BEAKER) (test code = 21.8 % 34.1-44.9 L 411) MEAN CORPUSCULAR VOLUME (BEAKER) 92.4 fL 79.4-94.8 (test code = 753) MEAN CORPUSCULAR HEMOGLOBIN 31.8 pg 25.6-32.2 (BEAKER) (test code = 751) MEAN CORPUSCULAR HEMOGLOBIN CONC 34.4 GM/DL 32.2-35.5 (BEAKER) (test code = 752) RED CELL DISTRIBUTION WIDTH 19.5 % 11.7-14.4 H (BEAKER) (test code = 412) PLATELET COUNT (BEAKER) (test 163 K/CU MM 150-450 code = 756) MEAN PLATELET VOLUME (BEAKER) 11.6 fL 9.4-12.3 (test code = 754) NUCLEATED RED BLOOD CELLS 0 /100 WBC 0-0 (BEAKER) (test code = 413) NEUTROPHILS RELATIVE PERCENT 82 % (BEAKER) (test code = 429) LYMPHOCYTES RELATIVE PERCENT 9 % (BEAKER) (test code = 430) MONOCYTES RELATIVE PERCENT 7 % (BEAKER) (test code = 431) EOSINOPHILS RELATIVE PERCENT 1 % (BEAKER) (test code = 432) BASOPHILS RELATIVE PERCENT 0 % (BEAKER) (test code = 437) NEUTROPHILS ABSOLUTE COUNT 4.44 K/ L 1.56-6.13 (BEAKER) (test code = 670) LYMPHOCYTES ABSOLUTE COUNT 0.48 K/ L 1.18-3.74 L (BEAKER) (test code = 414) MONOCYTES ABSOLUTE COUNT (BEAKER) 0.37 K/ L 0.24-0.36 H (test code = 415) EOSINOPHILS ABSOLUTE COUNT 0.05 K/ L 0.04-0.36 (BEAKER) (test code = 416) BASOPHILS ABSOLUTE COUNT (BEAKER) 0.01 K/ L 0.01-0.08 (test code = 417) IMMATURE GRANULOCYTES-RELATIVE 2 % 0-1 H PERCENT (BEAKER) (test code = 2801) POCT-GLUCOSE [id number] 22:01:20 Test Item Value Reference Range Interpretation Comments POC-GLUCOSE METER 117 mg/dL 70-110 H : TESTED A T [facility] 6720 (BEAKER) (test code [facility], = 1538) [address]: Strawhat Sizer/Techni daren ID = [id number] for Marino Cameron POCT-GLUCOSE [id number] 16:32:48 Test Item Value Reference Range Interpretation Comments POC-GLUCOSE METER 162 mg/dL 70-110 H : TESTED A T [facility] 6720 (BEAKER) (test code = [facility] Lilian [facility], 1538) [address]: Strawhat Sizer/Techni daren ID = [id number] for Tacos Lunaa POCT-GLUCOSE [id number] 12:44:02 Test Item Value Reference Range Interpretation Comments POC-GLUCOSE METER 157 mg/dL 70-110 H : TESTED A T [facility] 6720 (BEAKER) (test code = [facility], 1538) [address]: Strawhat Sizer/Techni daren ID = [id number] for Kalli Luna TACROLIMUS [id number] 12:01:38 Test Item Value Reference Range Interpretation Comments TACROLIMUS BLOOD 4.4 ng/mL 10.0-20.0 L Test perfor med on Greer (BEAKER) (test code Architec t Immunoassay = 657) system with Chemiluminescen t Microparticle I mmunoassay (CMIA) technolo ankur. Strawhat Sizer ID - ADMINPOCT-GLUCOSE [id number] 08:27:53 Test Item Value Reference Range Interpretation Comments POC-GLUCOSE METER 128 mg/dL 70-110 H : TESTED A T [facility] 6720 (BEAKER) (test code = [facility], 1538) [address]: Strawhat Sizer/Techni daren ID = [id number] for Ismael Lunaitha BASIC METABOLIC [id number] 07:23:01 Test Item Value Reference Range Interpretation Comments SODIUM (BEAKER) 133 meq/L 136-145 L (test code = 381) POTASSIUM 3.7 meq/L 3.5-5.1 Specimen slight ly (BEAKER) (test hemolyzed code = 379) CHLORIDE (BEAKER) 101 meq/L 98-107 (test code = 382) CO2 (BEAKER) 22 meq/L 22-29 (test code = 355) BLOOD UREA 42 mg/dL 7-21 H NITROGEN (BEAKER) (test code = 354) CREATININE 3.54 mg/dL 0.57-1.25 H Specimen slight ly (BEAKER) (test hemolyzed code = 358) GLUCOSE RANDOM 119 mg/dL 70-105 H (BEAKER) (test code = 652) CALCIUM (BEAKER) 8.3 mg/dL 8.4-10.2 L (test code = 697) EGFR (BEAKER) 14 Interpretatio n of eGFR (test code = mL/min/1.73 values Stage De scription 1092) sq m Result G1 Stephanie l or high >=90 G2 Mildly decreased 60-89 G3a Mildl y to moderately 45-5 9 G3b Moderately to s everely 30-44 G4 Severl y decreased 15-29 G5 Kidney failure <15Reported eGF R is based on the CKD-EPI 2020 equation that d oes not use a race coefficientEsti mated GFR is not as accur ate as Creatinine Regina fara in predicting glom erular filtration rate . Estimated GFR is not appl icable for dialysis patien ts Strawhat Sizer ID - MARCY LSpecimen slightly [id number] 07:22:12 Test Item Value Reference Range Interpretation Comments PHOSPHORUS (BEAKER) 3.0 mg/dL 2.3-4.7 Specimen slightly (test code = 604) hemolyzed Strawhat Sizer ID - MARCY LHEPATIC FUNCTION [id number] 07:22:12 Test Item Value Reference Range Interpretation Comments TOTAL PROTEIN (BEAKER) 5.9 gm/dL 6.0-8.3 L Speci men slightly (test code = 770) hemolyzed ALBUMIN (BEAKER) (test 2.9 g/dL 3.5-5.0 L Speci men slightly code = 1145) hemolyzed BILIRUBIN TOTAL 2.8 mg/dL 0.2-1.2 H Specimen sli ghtly (BEAKER) (test code = hemoly zed 377) BILIRUBIN DIRECT 1.8 mg/dL 0.1-0.5 H Specimen sl ightly (BEAKER) (test code = hemoly zed 706) ALKALINE PHOSPHATASE 84 U/L 40-150 (BEAKER) (test code = 346) AST (SGOT) (BEAKER) 10 U/L 5-34 Specimen slightly (test code = 353) hemolyzed ALT (SGPT) (BEAKER) 8 U/L 6-55 Specimen slightly (test code = 347) hemolyzed Strawhat Sizer ID - MARCY LSpecimen slightly [id number] 07:22:11 Test Item Value Reference Range Interpretation Comments MAGNESIUM (BEAKER) 1.6 mg/dL 1.6-2.6 Specimen slightly (test code = 627) hemolyzed Strawhat Sizer ID Rosina VIDAL LCBC W/PLT COUNT & AUTO [id number] 06:34:01 Test Item Value Reference Range Interpretation Comments WHITE BLOOD CELL COUNT (BEAKER) 6.3 K/ L 3.5-10.5 (test code = 775) RED BLOOD CELL COUNT (BEAKER) 2.89 M/ L 3.93-5.22 L (test code = 761) HEMOGLOBIN (BEAKER) (test code = 9.4 GM/DL 11.2-15.7 L 410) HEMATOCRIT (BEAKER) (test code = 28.2 % 34.1-44.9 L 411) MEAN CORPUSCULAR VOLUME (BEAKER) 97.6 fL 79.4-94.8 H (test code = 753) MEAN CORPUSCULAR HEMOGLOBIN 32.5 pg 25.6-32.2 H (BEAKER) (test code = 751) MEAN CORPUSCULAR HEMOGLOBIN CONC 33.3 GM/DL 32.2-35.5 (BEAKER) (test code = 752) RED CELL DISTRIBUTION WIDTH 19.7 % 11.7-14.4 H (BEAKER) (test code = 412) PLATELET COUNT (BEAKER) (test 193 K/CU MM 150-450 code = 756) MEAN PLATELET VOLUME (BEAKER) 11.6 fL 9.4-12.3 (test code = 754) NUCLEATED RED BLOOD CELLS 1 /100 WBC 0-0 H (BEAKER) (test code = 413) NEUTROPHILS RELATIVE PERCENT 84 % (BEAKER) (test code = 429) LYMPHOCYTES RELATIVE PERCENT 7 % (BEAKER) (test code = 430) MONOCYTES RELATIVE PERCENT 5 % (BEAKER) (test code = 431) EOSINOPHILS RELATIVE PERCENT 1 % (BEAKER) (test code = 432) BASOPHILS RELATIVE PERCENT 0 % (BEAKER) (test code = 437) NEUTROPHILS ABSOLUTE COUNT 5.34 K/ L 1.56-6.13 (BEAKER) (test code = 670) LYMPHOCYTES ABSOLUTE COUNT 0.47 K/ L 1.18-3.74 L (BEAKER) (test code = 414) MONOCYTES ABSOLUTE COUNT (BEAKER) 0.34 K/ L 0.24-0.36 (test code = 415) EOSINOPHILS ABSOLUTE COUNT 0.03 K/ L 0.04-0.36 L (BEAKER) (test code = 416) BASOPHILS ABSOLUTE COUNT (BEAKER) 0.01 K/ L 0.01-0.08 (test code = 417) IMMATURE GRANULOCYTES-RELATIVE 2 % 0-1 H PERCENT (BEAKER) (test code = 2801) PROTHROMBIN [id number] 06:33:32 Test Item Value Reference Range Interpretation Comments PROTIME (BEAKER) 14.8 seconds 11.9-14.2 H (test code = 759) INR (BEAKER) (test 1.23 See_Comment [Automat ed message] code = 370) The system V[employer] generated this result transmitted ref erence range: <=5.90. The reference range was not used to int erpret this result as normal/abnormal . RECOMMENDED COUMADIN/WARFARIN INR THERAPY RANGESSTANDARD DOSE: 2.0 - 3.0 Includes: PROPHYLAXIS for venous thrombosis, systemic embolization; TREATMENT for venous thrombosis and/or pulmonary embolus.HIGH RISK: Target INR is 2.5-3.5 for patients with mechanical heart valves.BLOOD [id number] 05:00:52 Test Item Value Reference Range Interpretation Comments CULTURE (BEAKER) (test No growth in 5 days code = 1095) POCT-GLUCOSE [id number] 21:16:13 Test Item Value Reference Range Interpretation Comments POC-GLUCOSE METER 78 mg/dL 70-110 : TESTED A T [facility] 6720 (BEAKER) (test code = [facility] Quintana [facility], 1538) [address]: Strawhat Sizer/Techni daren ID = [id number] for ROMARIO DOWNEY AM BLOOD [id number] 17:01:00 Test Item Value Reference Range Interpretation Comments CULTURE (BEAKER) (test No growth in 5 days code = 1095) The specimen volume collected for this blood culture was below the optimum (10 mL per bottle or 20 mL total). Use of lower volumes may adversely affect recovery and/or detection times of some organisms.POCT-GLUCOSE [id number] 16:14:23 Test Item Value Reference Range Interpretation Comments POC-GLUCOSE METER 183 mg/dL 70-110 H : TESTED A T [facility] 6720 (AKER) (test code [facility], = 1538) [address]: Strawhat Sizer/Techni daren ID = [id number] for Carolyn Ruiz POCT-GLUCOSE [id number] 16:14:18 Test Item Value Reference Range Interpretation Comments POC-GLUCOSE METER 144 mg/dL 70-110 H : TESTED A T [facility] 6720 (BEAKER) (test code [facility], = 1538) [address]: Strawhat Sizer/Techni daren ID = [id number] for Carolyn Ruiz TACROLIMUS [id number] 09:47:17 Test Item Value Reference Range Interpretation Comments TACROLIMUS BLOOD 3.9 ng/mL 10.0-20.0 L Test perfor med on Greer (BEAKER) (test code Architec t Immunoassay = 657) system with Chemiluminescen t Microparticle I mmunoassay (CMIA) technolo gy. POCT-GLUCOSE [id number] 07:30:44 Test Item Value Reference Range Interpretation Comments POC-GLUCOSE METER 114 mg/dL 70-110 H : TESTED A T [facility] 6720 (AKER) (test code [facility], = 1538) 55961: Strawhat Sizer/Techni daren ID = [id number] for Carolyn Ruiz CBC W/PLT COUNT & AUTO [id number] 06:46:01 Test Item Value Reference Range Interpretation Comments WHITE BLOOD CELL COUNT (BEAKER) 7.2 K/ L 3.5-10.5 (test code = 775) RED BLOOD CELL COUNT (BEAKER) 2.49 M/ L 3.93-5.22 L (test code = 761) HEMOGLOBIN (BEAKER) (test code = 8.0 GM/DL 11.2-15.7 L 410) HEMATOCRIT (BEAKER) (test code = 23.4 % 34.1-44.9 L 411) MEAN CORPUSCULAR VOLUME (BEAKER) 94.0 fL 79.4-94.8 (test code = 753) MEAN CORPUSCULAR HEMOGLOBIN 32.1 pg 25.6-32.2 (BEAKER) (test code = 751) MEAN CORPUSCULAR HEMOGLOBIN CONC 34.2 GM/DL 32.2-35.5 (BEAKER) (test code = 752) RED CELL DISTRIBUTION WIDTH 19.0 % 11.7-14.4 H (BEAKER) (test code = 412) PLATELET COUNT (BEAKER) (test 200 K/CU MM 150-450 code = 756) MEAN PLATELET VOLUME (BEAKER) 11.9 fL 9.4-12.3 (test code = 754) NUCLEATED RED BLOOD CELLS 1 /100 WBC 0-0 H (BEAKER) (test code = 413) NEUTROPHILS RELATIVE PERCENT 85 % (BEAKER) (test code = 429) LYMPHOCYTES RELATIVE PERCENT 6 % (BEAKER) (test code = 430) MONOCYTES RELATIVE PERCENT 7 % (BEAKER) (test code = 431) EOSINOPHILS RELATIVE PERCENT 0 % (BEAKER) (test code = 432) BASOPHILS RELATIVE PERCENT 0 % (BEAKER) (test code = 437) NEUTROPHILS ABSOLUTE COUNT 6.11 K/ L 1.56-6.13 (BEAKER) (test code = 670) LYMPHOCYTES ABSOLUTE COUNT 0.40 K/ L 1.18-3.74 L (BEAKER) (test code = 414) MONOCYTES ABSOLUTE COUNT (BEAKER) 0.47 K/ L 0.24-0.36 H (test code = 415) EOSINOPHILS ABSOLUTE COUNT 0.01 K/ L 0.04-0.36 L (BEAKER) (test code = 416) BASOPHILS ABSOLUTE COUNT (BEAKER) 0.01 K/ L 0.01-0.08 (test code = 417) IMMATURE GRANULOCYTES-RELATIVE 2 % 0-1 H PERCENT (BEAKER) (test code = 2801) COMPREHENSIVE METABOLIC [id number] 06:39:41 Test Item Value Reference Range Interpretation Comments TOTAL PROTEIN 5.4 gm/dL 6.0-8.3 L (BEAKER) (test code = 770) ALBUMIN (BEAKER) 2.6 g/dL 3.5-5.0 L (test code = 1145) ALKALINE 79 U/L 40-150 PHOSPHATASE (BEAKER) (test code = 346) BILIRUBIN TOTAL 2.8 mg/dL 0.2-1.2 H (BEAKER) (test code = 377) SODIUM (BEAKER) 133 meq/L 136-145 L (test code = 381) POTASSIUM (BEAKER) 3.4 meq/L 3.5-5.1 L (test code = 379) CHLORIDE (BEAKER) 101 meq/L 98-107 (test code = 382) CO2 (BEAKER) (test 23 meq/L 22-29 code = 355) BLOOD UREA 30 mg/dL 7-21 H NITROGEN (BEAKER) (test code = 354) CREATININE 2.42 mg/dL 0.57-1.25 H (BEAKER) (test code = 358) GLUCOSE RANDOM 116 mg/dL 70-105 H (BEAKER) (test code = 652) CALCIUM (BEAKER) 8.3 mg/dL 8.4-10.2 L (test code = 697) AST (SGOT) 6 U/L 5-34 (BEAKER) (test code = 353) ALT (SGPT) 7 U/L 6-55 (BEAKER) (test code = 347) EGFR (BEAKER) 23 Interpretatio n of eGFR (test code = 1092) mL/min/1.[address] age Description sq m Result G1 Stephanie l or high >=90 G2 Mildly decreased 60-89 G3a Mildl y to moderately 45-5 9 G3b Moderately to s everely 30-44 G4 Sever ly decreased 15-29 G5 Kidney failure <15Repo rted eGFR is based on the CKD-EPI 2020 equation t hat does not use a race coefficientEsti mated GFR is not as accur ate as Creatinine Regina fara in predicting glom erular filtration rate . Estimated GFR is not appl icable for dialysis patien ts Strawhat Sizer ID - JANET MSpecimen slightly ictericHEPATIC FUNCTION [id number] 06:21:49 Test Item Value Reference Range Interpretation Comments TOTAL PROTEIN (BEAKER) (test code = 5.4 gm/dL 6.0-8.3 L 770) ALBUMIN (BEAKER) (test code = 1145) 2.6 g/dL 3.5-5.0 L BILIRUBIN TOTAL (BEAKER) (test code 2.8 mg/dL 0.2-1.2 H = 377) BILIRUBIN DIRECT (BEAKER) (test 2.0 mg/dL 0.1-0.5 H code = 706) ALKALINE PHOSPHATASE (BEAKER) (test 79 U/L 40-150 code = 346) AST (SGOT) (BEAKER) (test code = 6 U/L 5-34 353) ALT (SGPT) (BEAKER) (test code = 7 U/L 6-55 347) Strawhat Sizer ID - JANET MSpecimen slightly [id number] 06:21:48 Test Item Value Reference Range Interpretation Comments PHOSPHORUS (BEAKER) (test code = 2.6 mg/dL 2.3-4.7 604) Strawhat Sizer ID - JANET [id number] 06:21:47 Test Item Value Reference Range Interpretation Comments MAGNESIUM (BEAKER) (test code = 1.7 mg/dL 1.6-2.6 627) Strawhat Sizer ID - JANET MCALCIUM, [id number] 06:01:55 Test Item Value Reference Range Interpretation Comments CALCIUM IONIZED (BEAKER) (test 1.11 mmol/L 1.12-1.27 L code = 698) PH, BLOOD (BEAKER) (test code = 7.48 1810) PROTHROMBIN [id number] 05:54:21 Test Item Value Reference Range Interpretation Comments PROTIME (BEAKER) 16.5 seconds 11.9-14.2 H (test code = 759) INR (BEAKER) (test 1.42 See_Comment [Automat ed message] code = 370) The system [employer] generated this result transmitted ref erence range: <=5.90. The reference range was not used to int erpret this result as normal/abnormal . RECOMMENDED COUMADIN/WARFARIN INR THERAPY RANGESSTANDARD DOSE: 2.0 - 3.0 Includes: PROPHYLAXIS for venous thrombosis, systemic embolization; TREATMENT for venous thrombosis and/or pulmonary embolus.HIGH RISK: Target INR is 2.5-3.5 for patients with mechanical heart valves.POCT-GLUCOSE [id number] 21:51:08 Test Item Value Reference Range Interpretation Comments POC-GLUCOSE METER 124 mg/dL 70-110 H : TESTED A T [facility] 6720 (BEAKER) (test code = [facility], 1538) [address]93: Strawhat Sizer/Techni daren ID = [id number] for Graciela Moon (CELLAVISION MANUAL DIFF)2022-06-01 14:34:08 Test Item Value Reference Range Interpretation Comments NEUTROPHILS - REL 92 % (CELLAVISION)(BEAKER) (test code = 2816) MONOCYTES - REL 8 % (CELLAVISION)(BEAKER) (test code = 2818) NEUTROPHILS - ABS 10.03 K/ul 1.56-6.13 H (CELLAVISION)(BEAKER) (test code = 2830) MONOCYTES - ABS 0.87 K/uL 0.24-0.36 H (CELLAVISION)(BEAKER) (test code = 2832) TOTAL COUNTED (BEAKER) (test code 100 = 1351) RBC MORPHOLOGY (BEAKER) (test code Normal = 762) WBC MORPHOLOGY (BEAKER) (test code Normal = 487) PLT MORPHOLOGY (BEAKER) (test code Normal = 486) CBC W/PLT COUNT & AUTO [id number] 14:34:06 Test Item Value Reference Range Interpretation Comments WHITE BLOOD CELL COUNT (BEAKER) 10.9 K/ L 3.5-10.5 H (test code = 775) RED BLOOD CELL COUNT (BEAKER) 2.69 M/ L 3.93-5.22 L (test code = 761) HEMOGLOBIN (BEAKER) (test code = 8.5 GM/DL 11.2-15.7 L 410) HEMATOCRIT (BEAKER) (test code = 24.6 % 34.1-44.9 L 411) MEAN CORPUSCULAR VOLUME (BEAKER) 91.4 fL 79.4-94.8 (test code = 753) MEAN CORPUSCULAR HEMOGLOBIN 31.6 pg 25.6-32.2 (BEAKER) (test code = 751) MEAN CORPUSCULAR HEMOGLOBIN CONC 34.6 GM/DL 32.2-35.5 (BEAKER) (test code = 752) RED CELL DISTRIBUTION WIDTH 18.9 % 11.7-14.4 H (BEAKER) (test code = 412) PLATELET COUNT (BEAKER) (test 201 K/CU MM 150-450 code = 756) MEAN PLATELET VOLUME (BEAKER) 11.6 fL 9.4-12.3 (test code = 754) NUCLEATED RED BLOOD CELLS 0 /100 WBC 0-0 (BEAKER) (test code = 413) POCT-GLUCOSE [id number] 11:37:44 Test Item Value Reference Range Interpretation Comments POC-GLUCOSE METER 125 mg/dL 70-110 H : TESTED A T [facility] 6720 (BEAKER) (test code = QUIN Quintana [facility], 1538) [address]: Strawhat Sizer/Techni daren ID = [id number] for Kalli Luna TACROLIMUS [id number] 09:23:46 Test Item Value Reference Range Interpretation Comments TACROLIMUS BLOOD 5.4 ng/mL 10.0-20.0 L Test perfor med on Greer (BEAKER) (test code Architec t Immunoassay = 657) system with Chemiluminescen t Microparticle I mmunoassay (CMIA) technolo gy. POCT-GLUCOSE [id number] 07:47:13 Test Item Value Reference Range Interpretation Comments POC-GLUCOSE METER 168 mg/dL 70-110 H : TESTED A T [facility] 6720 (BEAKER) (test code = QUIN Quintana [facility], 1538) [address]: Strawhat Sizer/Techni daren ID = [id number] for Kalli Luna BASIC METABOLIC [id number] 07:16:24 Test Item Value Reference Range Interpretation Comments SODIUM (BEAKER) 136 meq/L 136-145 (test code = 381) POTASSIUM 4.0 meq/L 3.5-5.1 (BEAKER) (test code = 379) CHLORIDE (BEAKER) 101 meq/L 98-107 (test code = 382) CO2 (BEAKER) 23 meq/L 22-29 (test code = 355) BLOOD UREA 62 mg/dL 7-21 H NITROGEN (BEAKER) (test code = 354) CREATININE 3.77 mg/dL 0.57-1.25 H (BEAKER) (test code = 358) GLUCOSE RANDOM 191 mg/dL 70-105 H (BEAKER) (test code = 652) CALCIUM (BEAKER) 8.0 mg/dL 8.4-10.2 L (test code = 697) EGFR (BEAKER) 13 Interpretatio n of eGFR (test code = mL/min/1.73 values Stage De scription 1092) sq m Result G1 Stephanie l or high >=90 G2 Mildly decreased 60-89 G3a Mildl y to moderately 45-5 9 G3b Moderately to s everely 30-44 G4 Severl y decreased 15-29 G5 Kidney failure <15Reported eGF R is based on the CKD-EPI 202 equation that d oes not use a race coefficientEsti mated GFR is not as accur ate as Creatinine Regina chaudhari in predicting glom erular filtration rate . Estimated GFR is not appl icable for dialysis patien ts Strawhat Sizer BRYAN Caraballoimen slightly ictericHEPATIC FUNCTION [id number] 07:14:23 Test Item Value Reference Range Interpretation Comments TOTAL PROTEIN (BEAKER) (test code = 5.3 gm/dL 6.0-8.3 L 770) ALBUMIN (BEAKER) (test code = 1145) 2.5 g/dL 3.5-5.0 L BILIRUBIN TOTAL (BEAKER) (test code 2.7 mg/dL 0.2-1.2 H = 377) BILIRUBIN DIRECT (BEAKER) (test 1.9 mg/dL 0.1-0.5 H code = 706) ALKALINE PHOSPHATASE (BEAKER) (test 79 U/L 40-150 code = 346) AST (SGOT) (BEAKER) (test code = 6 U/L 5-34 353) ALT (SGPT) (BEAKER) (test code = 10 U/L 6-55 347) Strawhat Sizer ID Rosina GONZALES MSpecimen slightly [id number] 07:14:21 Test Item Value Reference Range Interpretation Comments PHOSPHORUS (BEAKER) (test code = 4.2 mg/dL 2.3-4.7 604) Strawhat Sizer ID Rosina GONZALES [id number] 07:14:20 Test Item Value Reference Range Interpretation Comments MAGNESIUM (BEAKER) (test code = 1.8 mg/dL 1.6-2.6 627) Strawhat Sizer ID Rosina GONZALES MCBC W/PLT COUNT & AUTO [id number] 06:39:32 Test Item Value Reference Range Interpretation Comments WHITE BLOOD CELL COUNT (BEAKER) 9.6 K/ L 3.5-10.5 (test code = 775) RED BLOOD CELL COUNT (BEAKER) 2.42 M/ L 3.93-5.22 L (test code = 761) HEMOGLOBIN (BEAKER) (test code = 7.6 GM/DL 11.2-15.7 L 410) HEMATOCRIT (BEAKER) (test code = 22.4 % 34.1-44.9 L 411) MEAN CORPUSCULAR VOLUME (BEAKER) 92.6 fL 79.4-94.8 (test code = 753) MEAN CORPUSCULAR HEMOGLOBIN 31.4 pg 25.6-32.2 (BEAKER) (test code = 751) MEAN CORPUSCULAR HEMOGLOBIN CONC 33.9 GM/DL 32.2-35.5 (BEAKER) (test code = 752) RED CELL DISTRIBUTION WIDTH 18.6 % 11.7-14.4 H (BEAKER) (test code = 412) PLATELET COUNT (BEAKER) (test 185 K/CU MM 150-450 code = 756) MEAN PLATELET VOLUME (BEAKER) 12.0 fL 9.4-12.3 (test code = 754) NUCLEATED RED BLOOD CELLS 0 /100 WBC 0-0 (BEAKER) (test code = 413) NEUTROPHILS RELATIVE PERCENT 90 % (BEAKER) (test code = 429) LYMPHOCYTES RELATIVE PERCENT 4 % (BEAKER) (test code = 430) MONOCYTES RELATIVE PERCENT 4 % (BEAKER) (test code = 431) EOSINOPHILS RELATIVE PERCENT 0 % (BEAKER) (test code = 432) BASOPHILS RELATIVE PERCENT 0 % (BEAKER) (test code = 437) NEUTROPHILS ABSOLUTE COUNT 8.65 K/ L 1.56-6.13 H (BEAKER) (test code = 670) LYMPHOCYTES ABSOLUTE COUNT 0.37 K/ L 1.18-3.74 L (BEAKER) (test code = 414) MONOCYTES ABSOLUTE COUNT (BEAKER) 0.39 K/ L 0.24-0.36 H (test code = 415) EOSINOPHILS ABSOLUTE COUNT 0.00 K/ L 0.04-0.36 L (BEAKER) (test code = 416) BASOPHILS ABSOLUTE COUNT (BEAKER) 0.01 K/ L 0.01-0.08 (test code = 417) IMMATURE GRANULOCYTES-RELATIVE 2 % 0-1 H PERCENT (BEAKER) (test code = 2801) PROTHROMBIN [id number] 06:28:36 Test Item Value Reference Range Interpretation Comments PROTIME (BEAKER) 15.9 seconds 11.9-14.2 H (test code = 759) INR (BEAKER) (test 1.36 See_Comment [Automat ed message] code = 370) The system [employer] generated this result transmitted ref erence range: <=5.90. The reference range was not used to int erpret this result as normal/abnormal . RECOMMENDED COUMADIN/WARFARIN INR THERAPY RANGESSTANDARD DOSE: 2.0 - 3.0 Includes: PROPHYLAXIS for venous thrombosis, systemic embolization; TREATMENT for venous thrombosis and/or pulmonary embolus.HIGH RISK: Target INR is 2.5-3.5 for patients with mechanical heart valves.Prepare Leuko-Red [id number] 23:54:00 Test Item Value Reference Range Interpretation Comments CROSSMATCH (test code = 2264) COMPATIBLE Unit ABO (test code = O Pos [id number]) UNIT NUMBER (test code = [id number] 934-0) Status (test code = 2262804) [facility] Product (test code RED BLOOD CELLS = 2263) PRODUCT CODE (test code = F7318X35 933-2) [facility] [id number] 23:54:00 Test Item Value Reference Range Interpretation Comments CROSSMATCH (test code = 2264) COMPATIBLE Unit ABO (test code = O Pos 6559732) UNIT NUMBER (test code = [id number] 934-0) Status (test code = 5000981) [facility] Product (test code RED BLOOD CELLS = 2263) PRODUCT CODE (test code = U3161F66 933-2) [facility] [id number] 21:24:05 Test Item Value Reference Range Interpretation Comments POC-GLUCOSE METER 149 mg/dL 70-110 H : TESTED A T [facility] 6720 (Taktio) (test code [facility], = 1538) [address]248: Strawhat Sizer/Techni daren ID = [id number] for Yamel byers Carolyn POCT-GLUCOSE [id number] 16:40:10 Test Item Value Reference Range Interpretation Comments POC-GLUCOSE METER 155 mg/dL 70-110 H : TESTED A T [facility] 6720 (BEAKER) (test code = QUIN Quintana [facility], 1538) [address]296: Strawhat Sizer/Techni daren ID = [id number] for Luna Kalli SARS-CoV2/RT-PCR (Asymptomatic ONLY)2022-05-31 14:28:38 Test Item Value Reference Interpretation Comments Range SARS-COV2/RT-PCR Negative Negative The SARS-Co V-2 (test code = target nucleic 68455-5) acids are not detected in thi s specimen. Negat booker results do not preclude SARS-C oV-2 infection and should not be u sed as the sole bas is for patient management decisions. Nega tive results must be combined with clinical observations, patient history , and epidemiolog ical information. A false negative result may occu r if a specimen is improperly collected, transported or handled. This S ARS CoV-2 test is a rapid, real-marily e RT-PCR test intended for th e qualitative detection of nucleic acid fr om SARS-CoV-2 in a nasopharyngeal swab specimen collec kevin from individual s suspected of COVID-19 by the ir healthcare provider. ADRIA (test code = This test has been ADRIA) authorized by FDA under an EUA for use by authorized laboratories. This test is only authorized for the duration of the declaration that circumstances exist justifying the authorization of emergency use of in vitro diagnostic tests for detection and/or diagnosis of COVID-19 under Section 564(b)(1) of the Federal Food, Drug and Cosmetic Act, 21 U.S.C. 360bbb-3(b)(1), unless the authorization is terminated or revoked sooner. Fact Sheet for Healthcare Providers: https://www.[employer]/Documents/Xp ert%20Xpress%20SAR S%20CoV-2/Fact%20S heets/302-3802%20S ARS-COV-2%20HEALTH CARE%20PROVIDERS%2 0FACT%20SHEET.pdf Fact Sheet for Healthcare Patients: https://www.[employer]/Documents/Xp ert%20Xpress%20SAR S%20CoV-2/Fact%20S heets/302-3801%20S ARS-COV-2%20PATIEN T%20FACT%20SHEET.p df Lab Interpretation Normal (test code = 73745-3) [facility]2022-05-31 14:28:38 Test Item Value Reference Interpretation Comments Range SARS-COV2/RT-PCR Negative Negative The SARS-Co V-2 (test code = target nucleic 09915-2) acids are not detected in thi s specimen. Negat booker results do not preclude SARS-C oV-2 infection and should not be u sed as the sole bas is for patient management decisions. Nega tive results must be combined with clinical observations, patient history , and epidemiolog ical information. A false negative result may occu r if a specimen is improperly collected, transported or handled. This S ARS CoV-2 test is a rapid, real-marily e RT-PCR test intended for e qualitative detection of nucleic acid fr om SARS-CoV-2 in a nasopharyngeal swab specimen colle kevin from individual s suspected of COVID-19 by the ir healthcare provider. ADRIA (test code = This test has been ADRIA) authorized by FDA under an EUA for use by authorized laboratories. This test is only authorized for the duration of the declaration that circumstances exist justifying the authorization of emergency use of in vitro diagnostic tests for detection and/or diagnosis of COVID-19 under Section 564(b)(1) of the Federal Food, Drug and Cosmetic Act, 21 U.S.C. 360bbb-3(b)(1), unless the authorization is terminated or revoked sooner. Fact Sheet for Healthcare Providers: https://www.Life360/Documents/Xp ert%20Xpress%20SAR S%20CoV-2/Fact%20S heets/302-3802%20S ARS-COV-2%20HEALTH CARE%20PROVIDERS%2 0FACT%20SHEET.pdf Fact Sheet for Healthcare Patients: https://www.Life360/Documents/Xp ert%20Xpress%20SAR S%20CoV-2/Fact%20S heets/302-3801%20S ARS-COV-2%20PATIEN T%20FACT%20SHEET.p df Lab Interpretation Normal (test code = 17729-0) [facility]2022-05-31 14:28:38 Test Item Value Reference Range Interpretation Comments SARS-COV2/RT-PCR Negative Negative The SARS-Co V-2 target (test code = nucleic acids a re not [id number]) detected in thi s specimen. Negative result s do not preclude SARS-C oV-2 infection and s hould not be used as the derick e basis for patient managem ent decisions. Nega tive results must be combine d with clinical observ ations, patient history , and epidemiological information. A false negativ e result may occur if a spec imen is improperly erika ected, transported or handled. This SARS CoV-2 test is a rapid, real-time RT-PC R test intended for th e qualitative detection of nu cleic acid from SARS-CoV-2 in a nasopharyngeal swab specimen collected from individuals suspected of CO VID-19 by [facility]. This test has been authorized by FDA under an EUA for use by authorized laboratories. This test is only authorized for the duration of the declaration that circumstances exist justifying the authorization of emergency use of in vitro diagnostic tests for detection and/or diagnosis of COVID-19 under Section 564(b)(1) of the Federal Food, Drug and Cosmetic Act, 21 U.S.C. 360bbb-3(b)(1), unless the authorization is terminated or revoked sooner. Fact Sheet for Healthcare Providers: https://www.[employer]ade[employer].nl.[employer] m/Documents/Xpert%20Xpress%20SARS%20CoV-2/Fact%20Sheets/302-3802%23ZROI-HZB-2%20 HEALTHCARE%20PROVIDERS%20FACT%20SHEET.pdf Fact Sheet for Healthcare Patients: https://www.Xoopit/Documents/Xpert%20Xp ress%20SARS%20CoV-2/Fact%20Sheets/302-3801%88QPRE-ADV-0%20PATIENT%20FACT%20SHEET .pdfTACROLIMUS [id number] 13:39:40 Test Item Value Reference Range Interpretation Comments TACROLIMUS BLOOD 7.2 ng/mL 10.0-20.0 L Test perfor med on Cardpool (BESpaBooker) (test code Architec t Immunoassay = 657) system with Chemiluminescen t Microparticle I mmunoassay (CMIA) technolo gy. Strawhat Sizer ID - [id number] ID - ADMOperator ID - ADMPOCT-GLUCOSE [id number] 12:52:51 Test Item Value Reference Range Interpretation Comments POC-GLUCOSE METER 193 mg/dL 70-110 H : TESTED A T [facility] 6720 (BEAKER) (test code = [place], 1538) [address]: Strawhat Sizer/Techni daren ID = [id number] for Kalli Luna CBC W/PLT COUNT & AUTO [id number] 12:47:32 Test Item Value Reference Range Interpretation Comments WHITE BLOOD CELL COUNT (BEAKER) 12.1 K/ L 3.5-10.5 H (test code = 775) RED BLOOD CELL COUNT (BEAKER) 2.76 M/ L 3.93-5.22 L (test code = 761) HEMOGLOBIN (BEAKER) (test code = 8.6 GM/DL 11.2-15.7 L 410) HEMATOCRIT (BEAKER) (test code = 25.0 % 34.1-44.9 L 411) MEAN CORPUSCULAR VOLUME (BEAKER) 90.6 fL 79.4-94.8 (test code = 753) MEAN CORPUSCULAR HEMOGLOBIN 31.2 pg 25.6-32.2 (BEAKER) (test code = 751) MEAN CORPUSCULAR HEMOGLOBIN CONC 34.4 GM/DL 32.2-35.5 (BEAKER) (test code = 752) RED CELL DISTRIBUTION WIDTH 18.2 % 11.7-14.4 H (BEAKER) (test code = 412) PLATELET COUNT (BEAKER) (test 215 K/CU MM 150-450 code = 756) MEAN PLATELET VOLUME (BEAKER) 12.1 fL 9.4-12.3 (test code = 754) NUCLEATED RED BLOOD CELLS 1 /100 WBC 0-0 H (BEAKER) (test code = 413) NEUTROPHILS RELATIVE PERCENT 90 % (BEAKER) (test code = 429) LYMPHOCYTES RELATIVE PERCENT 4 % (BEAKER) (test code = 430) MONOCYTES RELATIVE PERCENT 4 % (BEAKER) (test code = 431) EOSINOPHILS RELATIVE PERCENT 0 % (BEAKER) (test code = 432) BASOPHILS RELATIVE PERCENT 0 % (BEAKER) (test code = 437) NEUTROPHILS ABSOLUTE COUNT 10.93 K/ L 1.56-6.13 H (BEAKER) (test code = 670) LYMPHOCYTES ABSOLUTE COUNT 0.48 K/ L 1.18-3.74 L (BEAKER) (test code = 414) MONOCYTES ABSOLUTE COUNT (BEAKER) 0.50 K/ L 0.24-0.36 H (test code = 415) EOSINOPHILS ABSOLUTE COUNT 0.00 K/ L 0.04-0.36 L (BEAKER) (test code = 416) BASOPHILS ABSOLUTE COUNT (BEAKER) 0.02 K/ L 0.01-0.08 (test code = 417) IMMATURE GRANULOCYTES-RELATIVE 2 % 0-1 H PERCENT (BEAKER) (test code = 2801) BLOOD [id number] 12:00:32 Test Item Value Reference Range Interpretation Comments CULTURE (BEAKER) (test No growth in 5 days code = 1095) BLOOD [id number] 11:00:26 Test Item Value Reference Range Interpretation Comments CULTURE (BEAKER) (test No growth in 5 days code = 1095) The specimen volume collected for this blood culture was below the optimum (10 mL per bottle or 20 mL total). Use of lower volumes may adversely affect recovery and/or detection times of some organisms.POCT-GLUCOSE [id number] 08:28:32 Test Item Value Reference Range Interpretation Comments POC-GLUCOSE METER 129 mg/dL 70-110 H : TESTED A T [facility] 6720 (BEAKER) (test code = [place], 1538) [id number]: Strawhat Sizer/Techni daren ID = [id number] for Kalli Luna BASIC METABOLIC [id number] 07:59:33 Test Item Value Reference Range Interpretation Comments SODIUM (BEAKER) 138 meq/L 136-145 (test code = 381) POTASSIUM 4.2 meq/L 3.5-5.1 (BEAKER) (test code = 379) CHLORIDE (BEAKER) 103 meq/L 98-107 (test code = 382) CO2 (BEAKER) 25 meq/L 22-29 (test code = 355) BLOOD UREA 44 mg/dL 7-21 H NITROGEN (BEAKER) (test code = 354) CREATININE 2.71 mg/dL 0.57-1.25 H (BEAKER) (test code = 358) GLUCOSE RANDOM 130 mg/dL 70-105 H (BEAKER) (test code = 652) CALCIUM (BEAKER) 7.9 mg/dL 8.4-10.2 L (test code = 697) EGFR (BEAKER) 20 Interpretatio n of eGFR (test code = mL/min/1.73 values Stage De scription 1092) sq m Result G1 Stephanie l or high >=90 G2 Mildly decreased 60-89 G3a Mildl y to moderately 45-5 9 G3b Moderately to s everely 30-44 G4 Severl y decreased 15-29 G5 Kidney failure <15Reported eGF R is based on the CKD-EPI 1 equation that d oes not use a race coefficientEsti mated GFR is not as accur ate as Creatinine Regina chaudhari in predicting glom erular filtration rate . Estimated GFR is not appl icable for dialysis patien ts Strawhat Sizer ID Rosina VIDAL LSpecimen slightly ictericHEPATIC FUNCTION [id number] 07:48:17 Test Item Value Reference Range Interpretation Comments TOTAL PROTEIN (BEAKER) (test code = 5.2 gm/dL 6.0-8.3 L 770) ALBUMIN (BEAKER) (test code = 1145) 2.3 g/dL 3.5-5.0 L BILIRUBIN TOTAL (BEAKER) (test code 2.9 mg/dL 0.2-1.2 H = 377) BILIRUBIN DIRECT (BEAKER) (test 2.0 mg/dL 0.1-0.5 H code = 706) ALKALINE PHOSPHATASE (BEAKER) (test 77 U/L 40-150 code = 346) AST (SGOT) (BEAKER) (test code = 7 U/L 5-34 353) ALT (SGPT) (BEAKER) (test code = 7 U/L 6-55 347) Strawhat Sizer ID Rosina VIDAL LSpecimen slightly [id number] 07:48:16 Test Item Value Reference Range Interpretation Comments PHOSPHORUS (BEAKER) (test code = 3.2 mg/dL 2.3-4.7 604) Strawhat Sizer ID Rosina VIDAL [id number] 07:48:15 Test Item Value Reference Range Interpretation Comments MAGNESIUM (BEAKER) (test code = 1.9 mg/dL 1.6-2.6 627) Strawhat Sizer BRYAN VIDAL LCBC W/PLT COUNT & AUTO [id number] 07:21:26 Test Item Value Reference Range Interpretation Comments WHITE BLOOD CELL COUNT (BEAKER) 9.7 K/ L 3.5-10.5 (test code = 775) RED BLOOD CELL COUNT (BEAKER) 2.39 M/ L 3.93-5.22 L (test code = 761) HEMOGLOBIN (BEAKER) (test code = 7.4 GM/DL 11.2-15.7 L 410) HEMATOCRIT (BEAKER) (test code = 21.6 % 34.1-44.9 L 411) MEAN CORPUSCULAR VOLUME (BEAKER) 90.4 fL 79.4-94.8 (test code = 753) MEAN CORPUSCULAR HEMOGLOBIN 31.0 pg 25.6-32.2 (BEAKER) (test code = 751) MEAN CORPUSCULAR HEMOGLOBIN CONC 34.3 GM/DL 32.2-35.5 (BEAKER) (test code = 752) RED CELL DISTRIBUTION WIDTH 17.1 % 11.7-14.4 H (BEAKER) (test code = 412) PLATELET COUNT (BEAKER) (test 159 K/CU MM 150-450 code = 756) MEAN PLATELET VOLUME (BEAKER) 12.1 fL 9.4-12.3 (test code = 754) NUCLEATED RED BLOOD CELLS 1 /100 WBC 0-0 H (BEAKER) (test code = 413) NEUTROPHILS RELATIVE PERCENT 90 % (BEAKER) (test code = 429) LYMPHOCYTES RELATIVE PERCENT 5 % (BEAKER) (test code = 430) MONOCYTES RELATIVE PERCENT 3 % (BEAKER) (test code = 431) EOSINOPHILS RELATIVE PERCENT 0 % (BEAKER) (test code = 432) BASOPHILS RELATIVE PERCENT 0 % (BEAKER) (test code = 437) NEUTROPHILS ABSOLUTE COUNT 8.75 K/ L 1.56-6.13 H (BEAKER) (test code = 670) LYMPHOCYTES ABSOLUTE COUNT 0.51 K/ L 1.18-3.74 L (BEAKER) (test code = 414) MONOCYTES ABSOLUTE COUNT (BEAKER) 0.30 K/ L 0.24-0.36 (test code = 415) EOSINOPHILS ABSOLUTE COUNT 0.00 K/ L 0.04-0.36 L (BEAKER) (test code = 416) BASOPHILS ABSOLUTE COUNT (BEAKER) 0.02 K/ L 0.01-0.08 (test code = 417) IMMATURE GRANULOCYTES-RELATIVE 2 % 0-1 H PERCENT (BEAKER) (test code = 2801) PROTHROMBIN [id number] 07:09:28 Test Item Value Reference Range Interpretation Comments PROTIME (BEAKER) 15.1 seconds 11.9-14.2 H (test code = 759) INR (BEAKER) (test 1.27 See_Comment [Automat ed message] code = 370) The system Vamo generated this result transmitted ref erence range: <=5.90. The reference range was not used to int erpret this result as normal/abnormal . RECOMMENDED COUMADIN/WARFARIN INR THERAPY RANGESSTANDARD DOSE: 2.0 - 3.0 Includes: PROPHYLAXIS for venous thrombosis, systemic embolization; TREATMENT for venous thrombosis and/or pulmonary embolus.HIGH RISK: Target INR is 2.5-3.5 for patients with mechanical heart valves.POCT-GLUCOSE [id number] 20:24:29 Test Item Value Reference Range Interpretation Comments POC-GLUCOSE METER 149 mg/dL 70-110 H : Notified RN/MD: (JOSEAKER) (test code = TESTED AT [facility] 1484 2048) [facility], [address]: Strawhat Sizer/Techni daren ID = [id number] for ERMELINDA SUE CBC W/PLT COUNT & AUTO [id number] 17:54:31 Test Item Value Reference Range Interpretation Comments WHITE BLOOD CELL COUNT (BEAKER) 9.8 K/ L 3.5-10.5 (test code = 775) RED BLOOD CELL COUNT (BEAKER) 2.60 M/ L 3.93-5.22 L (test code = 761) HEMOGLOBIN (BEAKER) (test code = 8.2 GM/DL 11.2-15.7 L 410) HEMATOCRIT (BEAKER) (test code = 22.7 % 34.1-44.9 L 411) MEAN CORPUSCULAR VOLUME (BEAKER) 87.3 fL 79.4-94.8 (test code = 753) MEAN CORPUSCULAR HEMOGLOBIN 31.5 pg 25.6-32.2 (BEAKER) (test code = 751) MEAN CORPUSCULAR HEMOGLOBIN CONC 36.1 GM/DL 32.2-35.5 H (BEAKER) (test code = 752) RED CELL DISTRIBUTION WIDTH 16.4 % 11.7-14.4 H (BEAKER) (test code = 412) PLATELET COUNT (BEAKER) (test 158 K/CU MM 150-450 code = 756) MEAN PLATELET VOLUME (BEAKER) 11.6 fL 9.4-12.3 (test code = 754) NUCLEATED RED BLOOD CELLS 1 /100 WBC 0-0 H (BEAKER) (test code = 413) NEUTROPHILS RELATIVE PERCENT 94 % (BEAKER) (test code = 429) LYMPHOCYTES RELATIVE PERCENT 3 % (BEAKER) (test code = 430) MONOCYTES RELATIVE PERCENT 1 % (BEAKER) (test code = 431) EOSINOPHILS RELATIVE PERCENT 0 % (BEAKER) (test code = 432) BASOPHILS RELATIVE PERCENT 0 % (BEAKER) (test code = 437) NEUTROPHILS ABSOLUTE COUNT 9.14 K/ L 1.56-6.13 H (BEAKER) (test code = 670) LYMPHOCYTES ABSOLUTE COUNT 0.27 K/ L 1.18-3.74 L (BEAKER) (test code = 414) MONOCYTES ABSOLUTE COUNT (BEAKER) 0.14 K/ L 0.24-0.36 L (test code = 415) EOSINOPHILS ABSOLUTE COUNT 0.01 K/ L 0.04-0.36 L (BEAKER) (test code = 416) BASOPHILS ABSOLUTE COUNT (BEAKER) 0.01 K/ L 0.01-0.08 (test code = 417) IMMATURE GRANULOCYTES-RELATIVE 2 % 0-1 H PERCENT (BEAKER) (test code = 2801) POCT-GLUCOSE [id number] 12:04:37 Test Item Value Reference Range Interpretation Comments POC-GLUCOSE METER 133 mg/dL 70-110 H : TESTED A T [facility] 6720 (BEAKER) (test code = [place], 1538) [address]: Strawhat Sizer/Techni daren ID = [id number] for Ciera Jones CBC W/PLT COUNT & AUTO [id number] 10:22:54 Test Item Value Reference Range Interpretation Comments WHITE BLOOD CELL COUNT (BEAKER) 11.7 K/ L 3.5-10.5 H (test code = 775) RED BLOOD CELL COUNT (BEAKER) 2.62 M/ L 3.93-5.22 L (test code = 761) HEMOGLOBIN (BEAKER) (test code = 8.6 GM/DL 11.2-15.7 L 410) HEMATOCRIT (BEAKER) (test code = 23.4 % 34.1-44.9 L 411) MEAN CORPUSCULAR VOLUME (BEAKER) 89.3 fL 79.4-94.8 (test code = 753) MEAN CORPUSCULAR HEMOGLOBIN 32.8 pg 25.6-32.2 H (BEAKER) (test code = 751) MEAN CORPUSCULAR HEMOGLOBIN CONC 36.8 GM/DL 32.2-35.5 H (BEAKER) (test code = 752) RED CELL DISTRIBUTION WIDTH 15.9 % 11.7-14.4 H (BEAKER) (test code = 412) PLATELET COUNT (BEAKER) (test 163 K/CU MM 150-450 code = 756) MEAN PLATELET VOLUME (BEAKER) 12.0 fL 9.4-12.3 (test code = 754) NUCLEATED RED BLOOD CELLS 1 /100 WBC 0-0 H (BEAKER) (test code = 413) NEUTROPHILS RELATIVE PERCENT 87 % (BEAKER) (test code = 429) LYMPHOCYTES RELATIVE PERCENT 6 % (BEAKER) (test code = 430) MONOCYTES RELATIVE PERCENT 3 % (BEAKER) (test code = 431) EOSINOPHILS RELATIVE PERCENT 1 % (BEAKER) (test code = 432) BASOPHILS RELATIVE PERCENT 0 % (BEAKER) (test code = 437) NEUTROPHILS ABSOLUTE COUNT 10.11 K/ L 1.56-6.13 H (BEAKER) (test code = 670) LYMPHOCYTES ABSOLUTE COUNT 0.66 K/ L 1.18-3.74 L (BEAKER) (test code = 414) MONOCYTES ABSOLUTE COUNT (BEAKER) 0.40 K/ L 0.24-0.36 H (test code = 415) EOSINOPHILS ABSOLUTE COUNT 0.13 K/ L 0.04-0.36 (BEAKER) (test code = 416) BASOPHILS ABSOLUTE COUNT (BEAKER) 0.04 K/ L 0.01-0.08 (test code = 417) IMMATURE GRANULOCYTES-RELATIVE 3 % 0-1 H PERCENT (BEAKER) (test code = 2801) TACROLIMUS [id number] 09:18:44 Test Item Value Reference Range Interpretation Comments TACROLIMUS BLOOD 12.6 ng/mL 10.0-20.0 Test perfor med on [place]er (BEAKER) (test code Architec t Immunoassay = 657) system with Chemiluminescen t Microparticle Immunoassay (CM IA) technology. POCT-GLUCOSE [id number] 08:19:41 Test Item Value Reference Range Interpretation Comments POC-GLUCOSE METER 147 mg/dL 70-110 H : TESTED A T [facility] 6720 (BEAKER) (test code = [place], 1538) [address]: Strawhat Sizer/Techni daren ID = [id number] for Ciera Jones BASIC METABOLIC [id number] 05:45:51 Test Item Value Reference Range Interpretation Comments SODIUM (BEAKER) 137 meq/L 136-145 (test code = 381) POTASSIUM 3.2 meq/L 3.5-5.1 L (BEAKER) (test code = 379) CHLORIDE (BEAKER) 100 meq/L 98-107 (test code = 382) CO2 (BEAKER) 25 meq/L 22-29 (test code = 355) BLOOD UREA 69 mg/dL 7-21 H NITROGEN (BEAKER) (test code = 354) CREATININE 3.82 mg/dL 0.57-1.25 H (BEAKER) (test code = 358) GLUCOSE RANDOM 129 mg/dL 70-105 H (BEAKER) (test code = 652) CALCIUM (BEAKER) 8.2 mg/dL 8.4-10.2 L (test code = 697) EGFR (BEAKER) 13 Interpretatio n of eGFR (test code = mL/min/1.73 values Stage De scription 1092) sq m Result G1 Stephanie l or high >=90 G2 Mildly decreased 60-89 G3a Mildl y to moderately 45-5 9 G3b Moderately to s everely 30-44 G4 Severl y decreased 15-29 G5 Kidney failure <15Reported eGF R is based on the CKD-EPI 2020 equation that d oes not use a race coefficientEsti mated GFR is not as accur ate as Creatinine Regina chaudhari in predicting glom erular filtration rate . Estimated GFR is not appl icable for dialysis patien ts Strawhat Sizer ID - JANET MSpecimen slightly ictericVANCOMYCIN LEVEL, [id number] 05:45:12 Test Item Value Reference Range Interpretation Comments VANCOMYCIN RANDOM (BEAKER) (test 15.5 ug/mL code = 523) Reference Range: No NormalsOperator ID - JANET [id number] 05:15:17 Test Item Value Reference Range Interpretation Comments PHOSPHORUS (BEAKER) (test code = 2.5 mg/dL 2.3-4.7 604) Strawhat Sizer ID - JANET MHEPATIC FUNCTION [id number] 05:15:17 Test Item Value Reference Range Interpretation Comments TOTAL PROTEIN (BEAKER) (test code = 5.7 gm/dL 6.0-8.3 L 770) ALBUMIN (BEAKER) (test code = 1145) 2.5 g/dL 3.5-5.0 L BILIRUBIN TOTAL (BEAKER) (test code 3.8 mg/dL 0.2-1.2 H = 377) BILIRUBIN DIRECT (BEAKER) (test 2.4 mg/dL 0.1-0.5 H code = 706) ALKALINE PHOSPHATASE (BEAKER) (test 86 U/L 40-150 code = 346) AST (SGOT) (BEAKER) (test code = 9 U/L 5-34 353) ALT (SGPT) (BEAKER) (test code = 9 U/L 6-55 347) Strawhat Sizer ID - JANET MSpecimen slightly [id number] 05:15:16 Test Item Value Reference Range Interpretation Comments MAGNESIUM (BEAKER) (test code = 2.1 mg/dL 1.6-2.6 627) Strawhat Sizer ID - JANET MPROTHROMBIN [id number] 05:08:13 Test Item Value Reference Range Interpretation Comments PROTIME (BEAKER) 15.8 seconds 11.9-14.2 H (test code = 759) INR (BEAKER) (test 1.35 See_Comment [Automat ed message] code = 370) The system Vamo generated this result transmitted ref erence range: <=5.90. The reference range was not used to int erpret this result as normal/abnormal . RECOMMENDED COUMADIN/WARFARIN INR THERAPY RANGESSTANDARD DOSE: 2.0 - 3.0 Includes: PROPHYLAXIS for venous thrombosis, systemic embolization; TREATMENT for venous thrombosis and/or pulmonary embolus.HIGH RISK: Target INR is 2.5-3.5 for patients with mechanical heart valves.CBC W/PLT COUNT & AUTO [id number] 04:48:43 Test Item Value Reference Range Interpretation Comments WHITE BLOOD CELL COUNT (BEAKER) 11.3 K/ L 3.5-10.5 H (test code = 775) RED BLOOD CELL COUNT (BEAKER) 1.99 M/ L 3.93-5.22 L (test code = 761) HEMOGLOBIN (BEAKER) (test code = 6.6 GM/DL 11.2-15.7 L 410) HEMATOCRIT (BEAKER) (test code = 18.1 % 34.1-44.9 L 411) MEAN CORPUSCULAR VOLUME (BEAKER) 91.0 fL 79.4-94.8 (test code = 753) MEAN CORPUSCULAR HEMOGLOBIN 33.2 pg 25.6-32.2 H (BEAKER) (test code = 751) MEAN CORPUSCULAR HEMOGLOBIN CONC 36.5 GM/DL 32.2-35.5 H (BEAKER) (test code = 752) RED CELL DISTRIBUTION WIDTH 17.1 % 11.7-14.4 H (BEAKER) (test code = 412) PLATELET COUNT (BEAKER) (test 162 K/CU MM 150-450 code = 756) MEAN PLATELET VOLUME (BEAKER) 12.0 fL 9.4-12.3 (test code = 754) NUCLEATED RED BLOOD CELLS 1 /100 WBC 0-0 H (BEAKER) (test code = 413) NEUTROPHILS RELATIVE PERCENT 84 % (BEAKER) (test code = 429) LYMPHOCYTES RELATIVE PERCENT 8 % (BEAKER) (test code = 430) MONOCYTES RELATIVE PERCENT 4 % (BEAKER) (test code = 431) EOSINOPHILS RELATIVE PERCENT 1 % (BEAKER) (test code = 432) BASOPHILS RELATIVE PERCENT 0 % (BEAKER) (test code = 437) NEUTROPHILS ABSOLUTE COUNT 9.53 K/ L 1.56-6.13 H (BEAKER) (test code = 670) LYMPHOCYTES ABSOLUTE COUNT 0.87 K/ L 1.18-3.74 L (BEAKER) (test code = 414) MONOCYTES ABSOLUTE COUNT (BEAKER) 0.45 K/ L 0.24-0.36 H (test code = 415) EOSINOPHILS ABSOLUTE COUNT 0.06 K/ L 0.04-0.36 (BEAKER) (test code = 416) BASOPHILS ABSOLUTE COUNT (BEAKER) 0.02 K/ L 0.01-0.08 (test code = 417) IMMATURE GRANULOCYTES-RELATIVE 3 % 0-1 H PERCENT (BEAKER) (test code = 2801) Prepare [id number] 23:54:00 Test Item Value Reference Range Interpretation Comments CROSSMATCH (test code = 2264) COMPATIBLE Unit ABO (test code = O Pos 4516750) UNIT NUMBER (test code = [id number] 934-0) Status (test code = 2496832) TX_TIMEINCHART Blood Bank Product (test code RED BLOOD CELLS = 2263) PRODUCT CODE (test code = G8800G18 933-2) [facility] [id number] 23:54:00 Test Item Value Reference Range Interpretation Comments CROSSMATCH (test code = 2264) COMPATIBLE Unit ABO (test code = O Pos 0704723) UNIT NUMBER (test code = [id number] 934-0) Status (test code = 8729608) TX_TIMEINCHART Blood Bank Product (test code RED BLOOD CELLS = 2263) PRODUCT CODE (test code = V6728D11 933-2) [facility] Center[facility] [id number] 23:31:26 Test Item Value Reference Range Interpretation Comments POC-GLUCOSE METER 165 mg/dL 70-110 H : TESTED A T [facility] 6720 (BEAKER) (test code = [place], 1538) [address]: Strawhat Sizer/Techni daren ID = [id number] for DAMION BRANDON CBC W/PLT COUNT & AUTO [id number] 13:23:46 Test Item Value Reference Range Interpretation Comments WHITE BLOOD CELL COUNT (BEAKER) 14.5 K/ L 3.5-10.5 H (test code = 775) RED BLOOD CELL COUNT (BEAKER) 2.46 M/ L 3.93-5.22 L (test code = 761) HEMOGLOBIN (BEAKER) (test code = 7.9 GM/DL 11.2-15.7 L 410) HEMATOCRIT (BEAKER) (test code = 22.0 % 34.1-44.9 L 411) MEAN CORPUSCULAR VOLUME (BEAKER) 89.4 fL 79.4-94.8 (test code = 753) MEAN CORPUSCULAR HEMOGLOBIN 32.1 pg 25.6-32.2 (BEAKER) (test code = 751) MEAN CORPUSCULAR HEMOGLOBIN CONC 35.9 GM/DL 32.2-35.5 H (BEAKER) (test code = 752) RED CELL DISTRIBUTION WIDTH 18.2 % 11.7-14.4 H (BEAKER) (test code = 412) PLATELET COUNT (BEAKER) (test 186 K/CU MM 150-450 code = 756) MEAN PLATELET VOLUME (BEAKER) 12.0 fL 9.4-12.3 (test code = 754) NUCLEATED RED BLOOD CELLS 2 /100 WBC 0-0 H (BEAKER) (test code = 413) NEUTROPHILS RELATIVE PERCENT 87 % (BEAKER) (test code = 429) LYMPHOCYTES RELATIVE PERCENT 4 % (BEAKER) (test code = 430) MONOCYTES RELATIVE PERCENT 3 % (BEAKER) (test code = 431) EOSINOPHILS RELATIVE PERCENT 0 % (BEAKER) (test code = 432) BASOPHILS RELATIVE PERCENT 0 % (BEAKER) (test code = 437) NEUTROPHILS ABSOLUTE COUNT 12.64 K/ L 1.56-6.13 H (BEAKER) (test code = 670) LYMPHOCYTES ABSOLUTE COUNT 0.61 K/ L 1.18-3.74 L (BEAKER) (test code = 414) MONOCYTES ABSOLUTE COUNT (BEAKER) 0.44 K/ L 0.24-0.36 H (test code = 415) EOSINOPHILS ABSOLUTE COUNT 0.06 K/ L 0.04-0.36 (BEAKER) (test code = 416) BASOPHILS ABSOLUTE COUNT (BEAKER) 0.05 K/ L 0.01-0.08 (test code = 417) IMMATURE GRANULOCYTES-RELATIVE 5 % 0-1 H PERCENT (BEAKER) (test code = 2801) POCT-GLUCOSE [id number] 12:12:35 Test Item Value Reference Range Interpretation Comments POC-GLUCOSE METER 149 mg/dL 70-110 H : TESTED A T [facility] 6720 (BEAKER) (test code = [place], 1538) [address]: Strawhat Sizer/Techni daren ID = [id number] for LO ALTON, KAYLIE RAD, CHEST, 1 VIEW, NON [id number] 11:53:00Reason for exam:->shortness of breathShould this be performed at the bedside?->Yes [facility] : 1965 Sex: FFINAL REPORT RAD, CHEST, 1 VIEW, NON DEPT INDICATION: shortness of breath COMPARISON: 05/26/2022 TECHNIQUE: Portable frontal view of the chest. FINDINGS: Support Lines and Devices: Stable.Lungs and pleura: Unchanged airspace and pleural opacities. No pneumothorax identified. Heart and mediastinum: Stable contours. Stable surgical changes. Additional findings: Mild spondylosis and facet arthropathy are present within the spine. IMPRESSION: 1.No significant change from prior exam.2.Low lung volumes with perivascular crowding. Signed: Darryl Samuels MDReport Verified Date/Time: :53:43 Reading Location: [facility] Radiology Reading Room CMV PCR, [id number] 11:40:38 Test Item Value Reference Range Interpretation Comments CMV VIRAL LOAD, 941 IU/mL See_Comment [Automated message] POSITIVE (BUDDY) The system which (test code = generated this result [id number]) transmitted ref erence range: <300 - >3,000,000 I U/mL. The reference r graciela was not used to interpret this result as normal/abnor mal. CMV VIRAL LOAD - 2.97 LOG IU/mL See_Comment [Automat ed message] LOG RESULT The system whic h (BUDDY) (test generated thi s result code = [id number]) transmitted reference range: <2.48 - >6.48 LOG IU /mL. The reference r graciela was not used to interpret this result as normal/abnor mal. Cytomegalovirus (CMV) infection can cause significant disease in immunosuppressed patients. However,it is common for CMV to manifest as a limited infection which is of no clinical significance in immunosuppressed patients or in healthy individuals.Viral load measurements are helpful to identify clinical CMV infection and to guide the pre-emptive management of antiviral therapy. For treatment of CMV infection due to reactivation in transplant recipients, a threshold between 4,000 and 5,000 copies/mLis suggested. For treatment of primary CMV infection, a lower threshold can be used.CMV infection may also be monitored using weekly serial measurements. Serial measurements of CMV DNA viral load can be evaluated by identifying a 10-fold change, as well as assessing the CMV DNA viral load and the clinical context for each patient.The plasma CMV DNA viral load was detected using quantitative polymerase chain reaction and fluorescent monitoring of a specific hybridized probe. Genetic variation and other factors can affect the accuracy of nucleic acid testing. Therefore, the results should be interpreted in light of clinical data. A negative result may not exclude the presence of CMV disease.This test was developed and its performance characteristics determined by the [facility], Section of Molecular Pathology. It has not been cleared or approved by the U.S. Foodand Drug Administration (FDA), since FDA approval is not required for clinical use of the test. Validation was done as required by The Clinical Laboratory Improvement Amendments of 1988.TACROLIMUS LEVEL 2022-05-29 09:17:22 Test Item Value Reference Range Interpretation Comments TACROLIMUS BLOOD 24.0 ng/mL 10.0-20.0 H Test perfor med on Cardpool (Taktio) (test code Architec t Immunoassay = 657) system with Chemiluminescen t Microparticle Immunoassay (CM IA) technology. POCT-GLUCOSE [id number] 08:28:50 Test Item Value Reference Range Interpretation Comments POC-GLUCOSE METER 128 mg/dL 70-110 H : TESTED A T [facility] 6720 (Taktio) (test code = [place], 1538) [address]: Strawhat Sizer/Techni daren ID = [id number] for KAYLIE LUZ CBC W/PLT COUNT & AUTO [id number] 07:01:14 Test Item Value Reference Range Interpretation Comments WHITE BLOOD CELL COUNT (Taktio) 14.1 K/ L 3.5-10.5 H (test code = 775) RED BLOOD CELL COUNT (Taktio) 2.30 M/ L 3.93-5.22 L (test code = 761) HEMOGLOBIN (BEAKER) (test code = 7.6 GM/DL 11.2-15.7 L 410) HEMATOCRIT (BEAKER) (test code = 20.6 % 34.1-44.9 L 411) MEAN CORPUSCULAR VOLUME (BEAKER) 89.6 fL 79.4-94.8 (test code = 753) MEAN CORPUSCULAR HEMOGLOBIN 33.0 pg 25.6-32.2 H (BEAKER) (test code = 751) MEAN CORPUSCULAR HEMOGLOBIN CONC 36.9 GM/DL 32.2-35.5 H (BEAKER) (test code = 752) RED CELL DISTRIBUTION WIDTH 17.5 % 11.7-14.4 H (BEAKER) (test code = 412) PLATELET COUNT (BEAKER) (test 168 K/CU MM 150-450 code = 756) MEAN PLATELET VOLUME (BEAKER) 12.1 fL 9.4-12.3 (test code = 754) NUCLEATED RED BLOOD CELLS 2 /100 WBC 0-0 H (BEAKER) (test code = 413) (CELLAVISION MANUAL DIFF)2022-05-29 07:01:14 Test Item Value Reference Range Interpretation Comments NEUTROPHILS - REL 92 % (CELLAVISION)(BEAKER) (test code = 2816) LYMPHOCYTES - REL 3 % (CELLAVISION)(BEAKER) (test code = 2817) MONOCYTES - REL 3 % (CELLAVISION)(BEAKER) (test code = 2818) EOSINOPHILS - REL 1 % (CELLAVISION)(BEAKER) (test code = 2819) BANDS - REL (CELLAVISION)(BEAKER) 1 % 0-10 (test code = 2826) NEUTROPHILS - ABS 12.97 K/ul 1.56-6.13 H (CELLAVISION)(BEAKER) (test code = 2830) LYMPHOCYTES - ABS 0.42 K/ul 1.18-3.74 L (CELLAVISION)(BEAKER) (test code = 2831) MONOCYTES - ABS 0.42 K/uL 0.24-0.36 H (CELLAVISION)(BEAKER) (test code = 2832) EOSINOPHILS - ABS 0.14 K/uL 0.04-0.36 (CELLAVISION)(BEAKER) (test code = 2834) BANDS - ABS (CELLAVISION)(BEAKER) 0.14 K/uL 0.00-0.80 (test code = 2840) TOTAL COUNTED (BEAKER) (test code 100 = 1351) MANUAL NRBC PER 100 CELLS 2 /100 WBC 0-0 H (BEAKER) (test code = 1353) WBC MORPHOLOGY (BEAKER) (test Normal code = 487) GIANT PLATELETS (BEAKER) (test Present code = 313) POLYCHROMATOPHILLIC RBCS(BEAKER) 2+ moderate (test code = 478) ANISOCYTOSIS (BEAKER) (test code 3+ many = 961) MICROCYTES (BEAKER) (test code = 2+ moderate 965) ARTIFACT (CELLAVISION)(BEAKER) Present (test code = 3432) PLATELET CONCENTRATION Adequate (CELLAVISION)(BEAKER) (test code = 3438) Strawhat Sizer ID - pedro luis Cha comments: Slide comments:BASIC METABOLIC PANEL 2022-05-29 06:29:42 Test Item Value Reference Range Interpretation Comments SODIUM (BEAKER) 139 meq/L 136-145 (test code = 381) POTASSIUM 3.5 meq/L 3.5-5.1 (BEAKER) (test code = 379) CHLORIDE (BEAKER) 102 meq/L 98-107 (test code = 382) CO2 (BEAKER) 25 meq/L 22-29 (test code = 355) BLOOD UREA 44 mg/dL 7-21 H NITROGEN (BEAKER) (test code = 354) CREATININE 2.76 mg/dL 0.57-1.25 H (BEAKER) (test code = 358) GLUCOSE RANDOM 108 mg/dL 70-105 H (BEAKER) (test code = 652) CALCIUM (BEAKER) 8.4 mg/dL 8.4-10.2 (test code = 697) EGFR (BEAKER) 19 Interpretatio n of eGFR (test code = mL/min/1.73 values Stage De scription 1092) sq m Result G1 Stephanie l or high >=90 G2 Mildly decreased 60-89 G3a Mildl y to moderately 45-5 9 G3b Moderately to s everely 30-44 G4 Severl y decreased 15-29 G5 Kidney failure <15Reported eGF R is based on the CKD-EPI 2020 equation that d oes not use a race coefficientEsti mated GFR is not as accur ate as Creatinine Regina fara in predicting glom erular filtration rate . Estimated GFR is not appl icable for dialysis patien ts Strawhat Sizer ID - MARCY CASTROpecimen moderately ictericHEPATIC FUNCTION [id number] 06:13:46 Test Item Value Reference Range Interpretation Comments TOTAL PROTEIN (BEAKER) (test code = 5.8 gm/dL 6.0-8.3 L 770) ALBUMIN (BEAKER) (test code = 1145) 2.6 g/dL 3.5-5.0 L BILIRUBIN TOTAL (BEAKER) (test code 5.4 mg/dL 0.2-1.2 H = 377) BILIRUBIN DIRECT (BEAKER) (test 3.0 mg/dL 0.1-0.5 H code = 706) ALKALINE PHOSPHATASE (BEAKER) (test 97 U/L 40-150 code = 346) AST (SGOT) (BEAKER) (test code = 17 U/L 5-34 353) ALT (SGPT) (BEAKER) (test code = 11 U/L 6-55 347) Strawhat Sizer ID - MARCY LSpecimen moderately [id number] 06:13:45 Test Item Value Reference Range Interpretation Comments PHOSPHORUS (BEAKER) (test code = 2.1 mg/dL 2.3-4.7 L 604) Strawhat Sizer ID - MARCY [id number] 06:13:44 Test Item Value Reference Range Interpretation Comments MAGNESIUM (BEAKER) (test code = 2.2 mg/dL 1.6-2.6 627) Strawhat Sizer ID - MARCY LPROTHROMBIN [id number] 05:17:52 Test Item Value Reference Range Interpretation Comments PROTIME (BEAKER) 15.6 seconds 11.9-14.2 H (test code = 759) INR (BEAKER) (test 1.27 See_Comment [Automat ed message] code = 370) The system Vamo generated this result transmitted ref erence range: <=5.90. The reference range was not used to int erpret this result as normal/abnormal . RECOMMENDED COUMADIN/WARFARIN INR THERAPY RANGESSTANDARD DOSE: 2.0 - 3.0 Includes: PROPHYLAXIS for venous thrombosis, systemic embolization; TREATMENT for venous thrombosis and/or pulmonary embolus.HIGH RISK: Target INR is 2.5-3.5 for patients with mechanical heart valves.U/S, ABDOMINAL, WITH [id number] 01:39:00Reason for exam:->S/p olt assess vessels [facility] : 1965 Sex: FFINAL REPORT ABDOMINAL ULTRASOUND WITH DOPPLER History: Orthotopic liver transplant. Evaluation of vasculature. COMPARISON: Abdominal ultrasound 04/28/2022 Findings: Recent liver transplant. Normal echotexture to the liver. There is no biliary ductal dilation. The common duct is normal in size. Small amount of fluid is present in the gallbladder fossa favoring small postoperative seroma. Small nodule in the head of the pancreas most likely representing a prominent periportal lymph node. No visible pancreatic ductal dilation. The kidneys are normal in size and there is no hydronephrosis or visible solid mass. Normal size of the spleen. Trace perihepatic ascites. Normal caliber of the a yudy and normal appearance of the IVC. Color and spectral Doppler evaluation shows a widely patent portal vein with hepatopedal flow. Normal waveforms in the hepatic arteries and hepatic veins. Hepatopedal flow in the splenic vein. IMPRESSION: No evidence of complication following liver transplant. Signed: Estevan Giles Verified Date/Time: 05/29/2022 01:39:35 POCT-GLUCOSE METER 2022-05-28 21:33:46 Test Item Value Reference Range Interpretation Comments POC-GLUCOSE METER 137 mg/dL 70-110 H : TESTED A T [facility] 6720 (BEAKER) (test code = [facility], 1538) [address]: Strawhat Sizer/Techni daren ID = [id number] for Sp Madan sandoval CBC (HEMOGRAM ONLY)2022-05-28 19:13:51 Test Item Value Reference Range Interpretation Comments WHITE BLOOD CELL COUNT (BEAKER) 15.1 K/ L 3.5-10.5 H (test code = 775) RED BLOOD CELL COUNT (BEAKER) 2.43 M/ L 3.93-5.22 L (test code = 761) HEMOGLOBIN (BEAKER) (test code = 7.9 GM/DL 11.2-15.7 L 410) HEMATOCRIT (BEAKER) (test code = 21.8 % 34.1-44.9 L 411) MEAN CORPUSCULAR VOLUME (BEAKER) 89.7 fL 79.4-94.8 (test code = 753) MEAN CORPUSCULAR HEMOGLOBIN 30.4 pg 25.6-32.2 (BEAKER) (test code = 751) MEAN CORPUSCULAR HEMOGLOBIN CONC 34.3 GM/DL 32.2-35.5 (BEAKER) (test code = 752) RED CELL DISTRIBUTION WIDTH 18.6 % 11.7-14.4 H (BEAKER) (test code = 412) PLATELET COUNT (BEAKER) (test 150 K/CU MM 150-450 code = 756) MEAN PLATELET VOLUME (BEAKER) 12.2 fL 9.4-12.3 (test code = 754) NUCLEATED RED BLOOD CELLS 2 /100 WBC 0-0 H (BEAKER) (test code = 413) Saine replacement Due to high MCHC.POCT-GLUCOSE [id number] 17:43:21 Test Item Value Reference Range Interpretation Comments POC-GLUCOSE METER 122 mg/dL 70-110 H : TESTED A T [facility] 6720 (BEAKER) (test code = [facility], 1538) [address]: Strawhat Sizer/Techni daren ID = [id number] for DE ZULLY LOPES LACTATE DEHYDROGENASE (LDH)2022-05-28 14:47:06 Test Item Value Reference Range Interpretation Comments LACTATE DEHYDROGENASE (BEAKER) (test 660 U/L 125-220 H code = 635) Strawhat Sizer ID - ADMINVANCOMYCIN LEVEL, [id number] 14:47:05 Test Item Value Reference Range Interpretation Comments VANCOMYCIN RANDOM (BEAKER) (test 25.1 ug/mL code = 523) Reference Range: No NormalsOperator ID - ADMINCBC W/PLT COUNT & AUTO [id number] 14:40:37 Test Item Value Reference Range Interpretation Comments WHITE BLOOD CELL COUNT (BEAKER) 15.4 K/ L 3.5-10.5 H (test code = 775) RED BLOOD CELL COUNT (BEAKER) 1.59 M/ L 3.93-5.22 L (test code = 761) HEMOGLOBIN (BEAKER) (test code = 5.3 GM/DL 11.2-15.7 LL 410) HEMATOCRIT (BEAKER) (test code = 14.9 % 34.1-44.9 L 411) MEAN CORPUSCULAR VOLUME (BEAKER) 93.7 fL 79.4-94.8 (test code = 753) MEAN CORPUSCULAR HEMOGLOBIN 33.3 pg 25.6-32.2 H (BEAKER) (test code = 751) MEAN CORPUSCULAR HEMOGLOBIN CONC 35.6 GM/DL 32.2-35.5 H (BEAKER) (test code = 752) RED CELL DISTRIBUTION WIDTH 19.7 % 11.7-14.4 H (BEAKER) (test code = 412) PLATELET COUNT (BEAKER) (test 165 K/CU MM 150-450 code = 756) MEAN PLATELET VOLUME (BEAKER) 12.6 fL 9.4-12.3 H (test code = 754) NUCLEATED RED BLOOD CELLS 2 /100 WBC 0-0 H (BEAKER) (test code = 413) Antibody [id number] 13:51:00 Test Item Value Reference Range Interpretation Comments ANTIBODY ID COLD ANTIBODY (BEAKER) (test code = 2253) Antibody Consult SIGNED OUT Declining H gb with (test code = hemolysis post 2478) 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 Patie nt is group B post-tr ansplant of group O live r. The direct Lurdes t est is positive for C3 d and elution reactiv e with B and A cells (co uld be anti-A,B). The interpretation is complicated by recent transfusion of group O platelets and C SHAWN. The patient also brown s bloody diarrhea that m ay be contributing to her anemia. Will gi ve group O RBCs until si gns of hemolysis and a nemia khadijah.Electroni c Signature: Karan Lyn M.D. 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 Patie nt is group B post-tr ansplant of group O live r. The direct Lurdes t est is positive for C3 d and elution reactiv e with B and A cells (co uld be anti-A,B). The interpretation is complicated by recent transfusion of group O platelets and C SHAWN. The patient also brown s bloody diarrhea that m ay be contributing to her anemia. Will gi ve group O RBCs until si gns of hemolysis and a nemia khadijah.Electroni c Signature: Karan Lyn M.D. [facility] CenterLactic Acid, [id number] 12:32:34 Test Item Value Reference Range Interpretation Comments Lactate, Art (test 0.8 mmol/L 0.5-2.2 Specimen code = 2874) slightly hemolyzed ADRIA (test code = ADRIA) Strawhat Sizer ID - ADMINSpecimen moderately icteric Lab Interpretation Normal (test code = 46240-6) [facility] CenterLactic Acid, [id number] 12:32:34 Test Item Value Reference Range Interpretation Comments Lactate, Art (test 0.8 mmol/L 0.5-2.2 Specimen code = 2874) slightly hemolyzed ADRIA (test code = ADRIA) Strawhat Sizer ID - ADMINSpecimen moderately icteric Lab Interpretation Normal (test code = 97815-3) [facility] CenterLACTIC ACID, [id number] 12:32:34 Test Item Value Reference Range Interpretation Comments LACTATE BLOOD 0.8 mmol/L 0.5-2.2 Specimen sligh tly ARTERIAL (2) (BEAKER) hemoly zed (test code = 2874) Strawhat Sizer ID - ADMINSpecimen moderately ictericPOCT-GLUCOSE [id number] 12:09:57 Test Item Value Reference Range Interpretation Comments POC-GLUCOSE METER 129 mg/dL 70-110 H : TESTED Karena Guerra [facility] 6720 (BEAKER) (test code = [place], 1538) [address]: Strawhat Sizer/Techni daren ID = [id number] for ZULLY SHANKAR (MANUAL DIFFERENTIAL)2022-05-28 11:45:37 Test Item Value Reference Range Interpretation Comments NEUTROPHILS - REL (DIFF) (BEAKER) 76 % (test code = 1359) LYMPHOCYTES - REL (DIFF) (BEAKER) 13 % (test code = 1360) MONOCYTES - REL (DIFF) (BEAKER) 6 % (test code = 1361) METAMYELOCYTES-REL (DIFF) (BEAKER) 1 % 0-0 H (test code = 258) MYELOCYTES-REL (DIFF) (BEAKER) 1 % 0-0 H (test code = 1594) BANDS - REL (DIFF) (BEAKER) (test 3 % 0-10 code = 1348) NEUTROPHILS - ABS (DIFF) (BEAKER) 13.45 K/ L 1.80-8.00 H (test code = 1365) LYMPHOCYTES - ABS (DIFF) (BEAKER) 2.30 K/ L 1.48-4.50 (test code = 1366) MONOCYTES - ABS (DIFF) (BEAKER) 1.06 K/ L 0.00-1.30 (test code = 1367) METAMYELOCTYES - ABS (DIFF) 0.18 K/ L 0.00-0.00 H (BEAKER) (test code = 261) BANDS-ABS (DIFF) (BEAKER) (test 0.5 K/ L 0.0-0.8 code = 1349) MYELOCYTES-ABS (DIFF) (BEAKER) 0.18 K/ L 0.00-0.00 H (test code = 1593) TOTAL COUNTED (BEAKER) (test code 100 = 1351) BANDS + SEGMENTED NEUTROPHILS 13.98 (BEAKER) (test code = 1352) WBC MORPHOLOGY (BEAKER) (test code Normal = 487) PLT MORPHOLOGY (BEAKER) (test code Normal = 486) ANISOCYTOSIS (BEAKER) (test code = 1+ few 961) MACROCYTES (BEAKER) (test code = 1+ few 964) POIKILOCYTES (BEAKER) (test code = 1+ few 966) CBC W/PLT COUNT & AUTO [id number] 11:45:36 Test Item Value Reference Range Interpretation Comments WHITE BLOOD CELL COUNT 17.7 K/ L 3.5-10.5 H (BEAKER) (test code = 775) RED BLOOD CELL COUNT 1.30 M/ L 3.93-5.22 L (BEAKER) (test code = 761) HEMOGLOBIN (BEAKER) 4.4 GM/DL 11.2-15.7 LL Discorda nt HGB (test code = 410) results co mpared to previous result s; clinical correl ation required. HEMATOCRIT (BEAKER) 12.1 % 34.1-44.9 L (test code = 411) MEAN CORPUSCULAR 93.1 fL 79.4-94.8 Discordant MCV VOLUME (BEAKER) (test result s compared to code = 753) previous result s; clinical correl ation required. MEAN CORPUSCULAR 33.8 pg 25.6-32.2 H HEMOGLOBIN (BEAKER) (test code = 751) MEAN CORPUSCULAR 36.4 GM/DL 32.2-35.5 H HEMOGLOBIN CONC (BEAKER) (test code = 752) RED CELL DISTRIBUTION 19.9 % 11.7-14.4 H WIDTH (BEAKER) (test code = 412) PLATELET COUNT 181 K/CU MM 150-450 (BEAKER) (test code = 756) MEAN PLATELET VOLUME 12.6 fL 9.4-12.3 H (BEAKER) (test code = 754) NUCLEATED RED BLOOD 1 /100 WBC 0-0 H CELLS (BEAKER) (test code = 413) TACROLIMUS [id number] 10:14:58 Test Item Value Reference Range Interpretation Comments TACROLIMUS BLOOD 10.9 ng/mL 10.0-20.0 Test perfor med on [place] (BEAKER) (test code Architec t Immunoassay = 657) system with Chemiluminescen t Microparticle Immunoassay (CM IA) technology. [id number] 09:29:58 Test Item Value Reference Range Interpretation Comments FERRITIN (BEAKER) (test code = 8014.04 ng/mL 5.00-275.00 H 361) Strawhat Sizer BRYAN uMllen ID - PIAYA LPOCT-GLUCOSE [id number] 09:05:45 Test Item Value Reference Range Interpretation Comments POC-GLUCOSE METER 121 mg/dL 70-110 H : TESTED A T [facility] 6720 (BEAKER) (test code = [place] [facility], 1538) [address]: Strawhat Sizer/Techni daren ID = [id number] for Angela Ramos RETICULOCYTE [id number] 08:46:15 Test Item Value Reference Range Interpretation Comments RETICULOCYTE COUNT PCT (BEAKER) (test 4.5 % 0.5-1.7 H code = 575) Strawhat Sizer ID - [id number] ID - [id number] ID - [id number] METABOLIC PANEL 2022-05-28 08:26:44 Test Item Value Reference Range Interpretation Comments SODIUM (BEAKER) 136 meq/L 136-145 (test code = 381) POTASSIUM 4.4 meq/L 3.5-5.1 (BEAKER) (test code = 379) CHLORIDE (BEAKER) 102 meq/L 98-107 (test code = 382) CO2 (BEAKER) 23 meq/L 22-29 (test code = 355) BLOOD UREA 89 mg/dL 7-21 H NITROGEN (BEAKER) (test code = 354) CREATININE 5.10 mg/dL 0.57-1.25 H (BEAKER) (test code = 358) GLUCOSE RANDOM 115 mg/dL 70-105 H (BEAKER) (test code = 652) CALCIUM (BEAKER) 8.3 mg/dL 8.4-10.2 L (test code = 697) EGFR (BEAKER) 9 Interpretatio n of eGFR (test code = mL/min/1.73 values Stage De scription 1092) sq m Result G1 Stephanie l or high >=90 G2 Mildly decreased 60-89 G3a Mild ly to moderately 45-5 9 G3b Moderately to s everely 30-44 G4 Severl y decreased 15-29 G5 Kidney failure <15Reported eGF R is based on the CKD-EPI 2021 equation that d oes not use a race coefficientEsti mated GFR is not as accur ate as Creatinine Regina fara in predicting glom erular filtration rate . Estimated GFR is not appl icable for dialysis patien ts Strawhat Sizer ID - MARCY LSpecimen moderately ictericHEPATIC FUNCTION [id number] 08:18:41 Test Item Value Reference Range Interpretation Comments TOTAL PROTEIN (BEAKER) (test code = 5.8 gm/dL 6.0-8.3 L 770) ALBUMIN (BEAKER) (test code = 1145) 2.6 g/dL 3.5-5.0 L BILIRUBIN TOTAL (BEAKER) (test code 4.9 mg/dL 0.2-1.2 H = 377) BILIRUBIN DIRECT (BEAKER) (test 2.9 mg/dL 0.1-0.5 H code = 706) ALKALINE PHOSPHATASE (BEAKER) (test 103 U/L 40-150 code = 346) AST (SGOT) (BEAKER) (test code = 19 U/L 5-34 353) ALT (SGPT) (BEAKER) (test code = 14 U/L 6-55 347) Strawhat Sizer ID Rosina VIDAL LSpecimen moderately [id number] 08:18:40 Test Item Value Reference Range Interpretation Comments PHOSPHORUS (BEAKER) (test code = 2.4 mg/dL 2.3-4.7 604) Strawhat Sizer ID - MARCY [id number] 08:18:39 Test Item Value Reference Range Interpretation Comments MAGNESIUM (BEAKER) (test code = 1.5 mg/dL 1.6-2.6 L 627) Strawhat Sizer ID Rosina VIDAL LCBC W/PLT COUNT & AUTO [id number] 08:15:19 Test Item Value Reference Range Interpretation Comments WHITE BLOOD CELL COUNT 19.9 K/ L 3.5-10.5 H (BEAKER) (test code = 775) RED BLOOD CELL COUNT 1.58 M/ L 3.93-5.22 L (BEAKER) (test code = 761) HEMOGLOBIN (BEAKER) 5.2 GM/DL 11.2-15.7 LL (test code = 410) HEMATOCRIT (BEAKER) 14.7 % 34.1-44.9 L (test code = 411) MEAN CORPUSCULAR 93.0 fL 79.4-94.8 Discordant from VOLUME (BEAKER) (test previo us results code = 753) MEAN CORPUSCULAR 32.9 pg 25.6-32.2 H HEMOGLOBIN (BEAKER) (test code = 751) MEAN CORPUSCULAR 35.4 GM/DL 32.2-35.5 HEMOGLOBIN CONC (BEAKER) (test code = 752) RED CELL DISTRIBUTION 20.2 % 11.7-14.4 H WIDTH (BEAKER) (test code = 412) PLATELET COUNT 198 K/CU MM 150-450 Patient trans fused (BEAKER) (test code = 756) MEAN PLATELET VOLUME 12.7 fL 9.4-12.3 H (BEAKER) (test code = 754) NUCLEATED RED BLOOD 1 /100 WBC 0-0 H CELLS (BEAKER) (test code = 413) TSH/FREE T4 IF [id number] 07:33:04 Test Item Value Reference Range Interpretation Comments THYROID STIMULATING HORMONE 1.783 uIU/mL 0.350-4.940 (BEAKER) (test code = 772) Strawhat Sizer ID - ADSANDI [id number] 07:15:45 Test Item Value Reference Range Interpretation Comments HAPTOGLOBIN (BEAKER) (test code = < mg/dL 14-258 L 366) Strawhat Sizer ID - ADSANDI LIMMUNOGLOBULIN G (IGG)2022-05-28 07:15:19 Test Item Value Reference Range Interpretation Comments IMMUNOGLOBULIN G (IGG) 1080 mg/dL See_Comment [Aut omated message] (BEAKER) (test code = The sy stem which 427) generated this result transmit kevin reference range : 540-1,822. The reference range was not used to interpret this result as normal/abnormal . Strawhat Sizer ID - MARCY [id number] 07:15:18 Test Item Value Reference Range Interpretation Comments PREALBUMIN (BEAKER) (test code = 19 mg/dL 14-45 586) Strawhat Sizer ID - MARCY LPROTHROMBIN [id number] 06:30:40 Test Item Value Reference Range Interpretation Comments PROTIME (BEAKER) 16.1 seconds 11.9-14.2 H (test code = 759) INR (BEAKER) (test 1.38 See_Comment [Automat ed message] code = 370) The system Vamo generated this result transmitted ref erence range: <=5.90. The reference range was not used to int erpret this result as normal/abnormal . RECOMMENDED COUMADIN/WARFARIN INR THERAPY RANGESSTANDARD DOSE: 2.0 - 3.0 Includes: PROPHYLAXIS for venous thrombosis, systemic embolization; TREATMENT for venous thrombosis and/or pulmonary embolus.HIGH RISK: Target INR is 2.5-3.5 for patients with mechanical heart valves.POCT-GLUCOSE [id number] 21:23:48 Test Item Value Reference Range Interpretation Comments POC-GLUCOSE METER 127 mg/dL 70-110 H : TESTED Karena Guerra [facility] 6720 (BUDDY) (test code = [place], 1538) [address]: Strawhat Sizer/Techni daren ID = [id number] for An Tiara andres Respiratory Panel [id number] 21:06:43 Test Item Value Reference Range Interpretation Comments Human Metapneumovirus Not detected Not detected, (test code = 35416-9) Equivocal Rhinovirus (test code = Not detected Not detected, 05786-1) Equivocal INFLUENZA A (NO Not detected Not detected, SUBTYPE) (test code = Equivocal 57661-2) Influenza A subtype H1 (test code = 53911-8) Influenza A Subtype H3 (test code = 03162-1) Influenza A Subtype H1-2009 (test code = 35583-5) Influenza B (test code Not detected Not detected, = 60950-7) Equivocal Respiratory Syncytial Not detected Not detected, Virus (test code = Equivocal 39438-2) Parainfluenza Virus 1 Not detected Not detected, (test code = 47527-1) Equivocal Parainfluenza Virus 2 Not detected Not detected, (test code = 58154-7) Equivocal Parainfluenza virus 3 Not detected Not detected, (test code = 88968-1) Equivocal Parainfluenza Virus 4 Not detected Not detected, (test code = 03824-3) Equivocal Adenovirus (test code = Not detected Not detected, 79887-2) Equivocal Coronavirus 229E (test Not detected Not detected, code = 59630-5) Equivocal Coronavirus HKU1 (test Not detected Not detected, code = 36863-7) Equivocal Coronavirus NL63 (test Not detected Not detected, code = 19620-0) Equivocal Coronavirus OC43 (test Not detected Not detected, code = 45584-3) Equivocal Bordetella Pertussis Not detected Not detected, (test code = 30153-7) Equivocal Chlamydophila Not detected Not detected, Pneumoniae (test code = Equivocal 08053-5) Mycoplasma Pneumoniae Not detected Not detected, (test code = 21016-4) Equivocal ADRIA (test code = ADRIA) Other viruses and bacteria not targeted by this PCR panel cannot be excluded; therefore clinical correlation and follow up of serology, culture results, and other molecular studies is required. The results are not intended to be used as the sole means for clinical diagnosis or patient management decisions. This sample was tested at the [facility] using the [employer] Respiratory Panel. It is FDA cleared and has been verified and approved by the [facility] for clinical use on nasopharyngeal swab specimens. The performance of the [employer] RP has not been established in individuals who received influenza vaccine. Recent administration of a nasal influenza vaccine may cause false positive results for Influenza A and/orInfluenza B. [id number] 21:06:43 Test Item Value Reference Range Interpretation Comments Human Metapneumovirus Not detected Not detected, (test code = 06320-2) Equivocal Rhinovirus (test code = Not detected Not detected, 15422-7) Equivocal INFLUENZA A (NO Not detected Not detected, SUBTYPE) (test code = Equivocal 63801-4) Influenza A subtype H1 (test code = 31765-8) Influenza A Subtype H3 (test code = 31093-4) Influenza A Subtype H1-2009 (test code = 37328-0) Influenza B (test code Not detected Not detected, = 75962-3) Equivocal Respiratory Syncytial Not detected Not detected, Virus (test code = Equivocal 73122-6) Parainfluenza Virus 1 Not detected Not detected, (test code = 92842-3) Equivocal Parainfluenza Virus 2 Not detected Not detected, (test code = 73597-6) Equivocal Parainfluenza virus 3 Not detected Not detected, (test code = 09764-4) Equivocal Parainfluenza Virus 4 Not detected Not detected, (test code = 39349-2) Equivocal Adenovirus (test code = Not detected Not detected, 81889-6) Equivocal Coronavirus 229E (test Not detected Not detected, code = 54333-4) Equivocal Coronavirus HKU1 (test Not detected Not detected, code = 65315-6) Equivocal Coronavirus NL63 (test Not detected Not detected, code = 61269-1) Equivocal Coronavirus OC43 (test Not detected Not detected, code = 91019-7) Equivocal Bordetella Pertussis Not detected Not detected, (test code = 99300-3) Equivocal Chlamydophila Not detected Not detected, Pneumoniae (test code = Equivocal 54531-0) Mycoplasma Pneumoniae Not detected Not detected, (test code = 81333-4) Equivocal ADRIA (test code = ADRIA) Other viruses and bacteria not targeted by this PCR panel cannot be excluded; therefore clinical correlation and follow up of serology, culture results, and other molecular studies is required. The results are not intended to be used as the sole means for clinical diagnosis or patient management decisions. This sample was tested at the [facility] using the [employer] Technologies[employer] Respiratory Panel. It is FDA cleared and has been verified and approved by the [facility] for clinical use on nasopharyngeal swab specimens. The performance of the FilmArray RP has not been established in individuals who received influenza vaccine. Recent administration of a nasal influenza vaccine may cause false positive results for Influenza A and/orInfluenza B. [facility] [id number] 21:06:43 Test Item Value Reference Range Interpretation Comments HUMAN METAPNEUMOVIRUS Not detected Not detected, (BEAKER) (test code = 2683) Equivocal RHINOVIRUS (BEAKER) (test Not detected Not detected, code = 2684) Equivocal INFLUENZA A (BEAKER) (test Not detected Not detected, code = 2685) Equivocal INFLUENZA A (NO SUBTYPE) (test code = 3606) INFLUENZA A SUBTYPE H1 (BEAKER) (test code = 2686) INFLUENZA A SUBTYPE H3 (BEAKER) (test code = 2687) INFLUENZA A SUBTYPE H1-2009 (BEAKER) (test code = 3198) INFLUENZA B (BEAKER) (test Not detected Not detected, code = 2688) Equivocal RESPIRATORY SYNCYTIAL VIRUS Not detected Not detected, (BEAKER) (test code = 3199) Equivocal PARAINFLUENZA VIRUS 1 Not detected Not detected, (BEAKER) (test code = 2691) Equivocal PARAINFLUENZA VIRUS 2 Not detected Not detected, (BEAKER) (test code = 2692) Equivocal PARAINFLUENZA VIRUS 3 Not detected Not detected, (BEAKER) (test code = 2693) Equivocal PARAINFLUENZA VIRUS 4 Not detected Not detected, (BEAKER) (test code = 3200) Equivocal ADENOVIRUS (BEAKER) (test Not detected Not detected, code = 2694) Equivocal CORONAVIRUS 229E (BEAKER) Not detected Not detected, (test code = 3201) Equivocal CORONAVIRUS HKU1 (BEAKER) Not detected Not detected, (test code = 3202) Equivocal CORONAVIRUS NL63 (BEAKER) Not detected Not detected, (test code = 3203) Equivocal CORONAVIRUS OC43 (BEAKER) Not detected Not detected, (test code = 3204) Equivocal BORDETELLA PERTUSSIS Not detected Not detected, (BEAKER) (test code = 3205) Equivocal CHLAMYDOPHILA PNEUMONIAE Not detected Not detected, (BEAKER) (test code = 3206) Equivocal MYCOPLASMA PNEUMONIAE Not detected Not detected, (BEAKER) (test code = 3207) Equivocal Other viruses and bacteria not targeted by this PCR panel cannot be excluded; therefore clinical correlation and follow up of serology, culture results, and other molecular studies is required. The results are not intended to be used as the sole means for clinical diagnosis or patient management decisions. This sample was tested at the [facility] using the [employer] FilmArray Respiratory Panel. It is FDA cleared and has been verified and approved by the [facility] for clinical use on nasopharyngeal swab specimens.The performance of the FilmArrayRP has not been established in individuals who received influenza vaccine. Recent administration of a nasal influenza vaccine may cause false positive results for Influenza A and/orInfluenza B.POCT-GLUCOSE [id number] 17:13:13 Test Item Value Reference Range Interpretation Comments POC-GLUCOSE METER 147 mg/dL 70-110 H : TESTED A T [facility] 6720 (Taktio) (test code = [facility], 1538) 9[address]: Strawhat Sizer/Techni daren ID = [id number] for Re leonides, Kia POCT-GLUCOSE [id number] 12:57:55 Test Item Value Reference Range Interpretation Comments POC-GLUCOSE METER 139 mg/dL 70-110 H : TESTED A T [facility] 6720 (BEAKER) (test code = [facility], 1538) 717[address]: Strawhat Sizer/Techni daren ID = [id number] for Re leonides, Kia TACROLIMUS [id number] 11:30:13 Test Item Value Reference Range Interpretation Comments TACROLIMUS BLOOD 10.0 ng/mL 10.0-20.0 Test perfor med on Greer (BEAKER) (test code Architec t Immunoassay = 657) system with Chemiluminescen t Microparticle Immunoassay (CM IA) technology. BASIC METABOLIC [id number] 08:18:09 Test Item Value Reference Range Interpretation Comments SODIUM (BEAKER) 137 meq/L 136-145 (test code = 381) POTASSIUM 4.0 meq/L 3.5-5.1 (BEAKER) (test code = 379) CHLORIDE (BEAKER) 102 meq/L 98-107 (test code = 382) CO2 (BEAKER) 26 meq/L 22-29 (test code = 355) BLOOD UREA 56 mg/dL 7-21 H NITROGEN (BEAKER) (test code = 354) CREATININE 4.03 mg/dL 0.57-1.25 H (BEAKER) (test code = 358) GLUCOSE RANDOM 135 mg/dL 70-105 H (BEAKER) (test code = 652) CALCIUM (BEAKER) 7.9 mg/dL 8.4-10.2 L (test code = 697) EGFR (BEAKER) 12 Interpretatio n of eGFR (test code = mL/min/1.73 values Stage De scription 1092) sq m Result G1 Stephanie l or high >=90 G2 Mildly decreased 60-89 G3a Mildl y to moderately 45-5 9 G3b Moderately to s everely 30-44 G4 Severl y decreased 15-29 G5 Kidney failure <15Reported eGF R is based on the CKD-EPI 2021 equation that d oes not use a race coefficientEsti mated GFR is not as accur ate as Creatinine Regina fara in predicting glom erular filtration rate . Estimated GFR is not appl icable for dialysis patien ts Strawhat Sizer ID - PIAYA LSpecimen moderately ictericHEPATIC FUNCTION [id number] 08:01:55 Test Item Value Reference Range Interpretation Comments TOTAL PROTEIN (BEAKER) (test code = 5.4 gm/dL 6.0-8.3 L 770) ALBUMIN (BEAKER) (test code = 1145) 2.6 g/dL 3.5-5.0 L BILIRUBIN TOTAL (BEAKER) (test code 5.0 mg/dL 0.2-1.2 H = 377) BILIRUBIN DIRECT (BEAKER) (test 3.0 mg/dL 0.1-0.5 H code = 706) ALKALINE PHOSPHATASE (BEAKER) (test 109 U/L 40-150 code = 346) AST (SGOT) (BEAKER) (test code = 17 U/L 5-34 353) ALT (SGPT) (BEAKER) (test code = 12 U/L 6-55 347) Strawhat Sizer ID - MARCY LOperator ID - ADSANDI LSpecimen moderately ictericMAGNESIUM 2022-05-27 08:01:54 Test Item Value Reference Range Interpretation Comments MAGNESIUM (BEAKER) (test code = 1.5 mg/dL 1.6-2.6 L 627) Strawhat Sizer ID - MARCY LPOCT-GLUCOSE [id number] 07:46:13 Test Item Value Reference Range Interpretation Comments POC-GLUCOSE METER 133 mg/dL 70-110 H : TESTED A T [facility] 6720 (BEAKER) (test code = [place], 1538) [address]: Strawhat Sizer/Techni daren ID = [id number] for Kia Lau [id number] 07:23:28 Test Item Value Reference Range Interpretation Comments PHOSPHORUS (BEAKER) (test code = 1.6 mg/dL 2.3-4.7 L 604) Strawhat Sizer ID - MARCY L(CELLAVISION MANUAL DIFF)2022-05-27 07:15:43 Test Item Value Reference Range Interpretation Comments NEUTROPHILS - REL 86 % (CELLAVISION)(BEAKER) (test code = 2816) LYMPHOCYTES - REL 5 % (CELLAVISION)(BEAKER) (test code = 2817) MONOCYTES - REL 3 % (CELLAVISION)(BEAKER) (test code = 2818) EOSINOPHILS - REL 2 % (CELLAVISION)(BEAKER) (test code = 2819) BANDS - REL (CELLAVISION)(BEAKER) 4 % 0-10 (test code = 2826) NEUTROPHILS - ABS 10.66 K/ul 1.56-6.13 H (CELLAVISION)(BEAKER) (test code = 2830) LYMPHOCYTES - ABS 0.62 K/ul 1.18-3.74 L (CELLAVISION)(BEAKER) (test code = 2831) MONOCYTES - ABS 0.37 K/uL 0.24-0.36 H (CELLAVISION)(BEAKER) (test code = 2832) EOSINOPHILS - ABS 0.25 K/uL 0.04-0.36 (CELLAVISION)(BEAKER) (test code = 2834) BANDS - ABS (CELLAVISION)(BEAKER) 0.50 K/uL 0.00-0.80 (test code = 2840) TOTAL COUNTED (BEAKER) (test code 100 = 1351) WBC MORPHOLOGY (BEAKER) (test code Normal = 487) PLT MORPHOLOGY (BEAKER) (test code Normal = 486) POLYCHROMATOPHILLIC RBCS(BEAKER) 1+ few (test code = 478) ANISOCYTOSIS (BEAKER) (test code = 3+ many 961) MICROCYTES (BEAKER) (test code = 3+ many 965) POIKILOCYTES (BEAKER) (test code = 1+ few 966) SPHEROCYTES (BEAKER) (test code = 1+ few 768) STOMATOCYTES (BEAKER) (test code = 1+ few 479) ARTIFACT (CELLAVISION)(BEAKER) Present (test code = 3432) PLATELET CONCENTRATION Decreased (CELLAVISION)(BEAKER) (test code = 3438) Strawhat Sizer ID - Sapna Tinsley comments: Slide comments:CBC W/PLT COUNT & AUTO [id number] 07:15:35 Test Item Value Reference Range Interpretation Comments WHITE BLOOD CELL COUNT (BEAKER) 12.4 K/ L 3.5-10.5 H (test code = 775) RED BLOOD CELL COUNT (BEAKER) 2.07 M/ L 3.93-5.22 L (test code = 761) HEMOGLOBIN (BEAKER) (test code = 7.4 GM/DL 11.2-15.7 L 410) HEMATOCRIT (BEAKER) (test code = 20.1 % 34.1-44.9 L 411) MEAN CORPUSCULAR VOLUME (BEAKER) 97.1 fL 79.4-94.8 H (test code = 753) MEAN CORPUSCULAR HEMOGLOBIN 35.7 pg 25.6-32.2 H (BEAKER) (test code = 751) MEAN CORPUSCULAR HEMOGLOBIN CONC 36.8 GM/DL 32.2-35.5 H (BEAKER) (test code = 752) RED CELL DISTRIBUTION WIDTH 22.1 % 11.7-14.4 H (BEAKER) (test code = 412) PLATELET COUNT (BEAKER) (test 127 K/CU MM 150-450 L code = 756) MEAN PLATELET VOLUME (BEAKER) 12.7 fL 9.4-12.3 H (test code = 754) NUCLEATED RED BLOOD CELLS 1 /100 WBC 0-0 H (BEAKER) (test code = 413) PROTHROMBIN [id number] 06:47:56 Test Item Value Reference Range Interpretation Comments PROTIME (BEAKER) 16.0 seconds 11.9-14.2 H (test code = 759) INR (BEAKER) (test 1.37 See_Comment [Automat ed message] code = 370) The system Vamo generated this result transmitted ref erence range: <=5.90. The reference range was not used to int erpret this result as normal/abnormal . RECOMMENDED COUMADIN/WARFARIN INR THERAPY RANGESSTANDARD DOSE: 2.0 - 3.0 Includes: PROPHYLAXIS for venous thrombosis, systemic embolization; TREATMENT for venous thrombosis and/or pulmonary embolus.HIGH RISK: Target INR is 2.5-3.5 for patients with mechanical heart valves.POCT-GLUCOSE [id number] 04:27:44 Test Item Value Reference Range Interpretation Comments POC-GLUCOSE METER 134 mg/dL 70-110 H : TESTED A T [facility] 6720 (Taktio) (test code = [place] [facility], 153) [address]: Strawhat Sizer/Techni daren ID = [id number] for ROMARIO KO POCT-GLUCOSE [id number] 16:37:55 Test Item Value Reference Range Interpretation Comments POC-GLUCOSE METER 158 mg/dL 70-110 H : TESTED A T [facility] 6720 (Taktio) (test code = [place] [facility], 1538) [address]: Strawhat Sizer/Techni daren ID = [id number] for Kia Lau POCT-GLUCOSE [id number] 15:07:15 Test Item Value Reference Range Interpretation Comments POC-GLUCOSE METER 156 mg/dL 70-110 H : TESTED A T [facility] 6720 (BUDDY) (test code = QU[place] Quintana [facility], 1538) 18471: Strawhat Sizer/Techni daren ID = [id number] for Re Kia coyle SARS-COV2/RT-PCR ([facility])2022-05-26 14:19:50 Test Item Value Reference Range Interpretation Comments SARS-COV2/RT-PCR Negative Negative The SARS-Co V-2 target (test code = nucleic acids a re not [id number]) detected in thi s specimen. Negative result s do not preclude SARS-C oV-2 infection and s hould not be used as the derick e basis for patient managem ent decisions. Nega tive results must be combine d with clinical observ ations, patient history , and epidemiological information. A false negativ e result may occur if a spec imen is improperly erika ected, transported or handled. This SARS CoV-2 test is a rapid, real-time RT-PC R test intended for th e qualitative detection of nu cleic acid from SARS-CoV-2 in a nasopharyngeal swab specimen collected from individuals suspected of CO VID-19 by their healthcar e provider. This test has been authorized by FDA under an EUA for use by authorized laboratories. This test is only authorized for the duration of the declaration that circumstances exist justifying the authorization of emergency use of in vitro diagnostic tests for detection and/or diagnosis of COVID-19 under Section 564(b)(1) of the Federal Food, Drug and Cosmetic Act, 21 U.S.C. 360bbb-3(b)(1), unless the authorization is terminated or revoked sooner. Fact Sheet for Healthcare Providers: https://www.TradeCloud.nl.co m/Documents/Xpert%20Xpress%20SARS%20CoV-2/Fact%20Sheets/590-3802%77OROD-ACY-9%20 HEALTHCARE%20PROVIDERS%20FACT%20SHEET.pdf Fact Sheet for Healthcare Patients: https://www.Xoopit/Documents/Xpert%20Xp ress%20SARS%20CoV-2/Fact%20Sheets/3023801%42AMCP-LMO-6%20PATIENT%20FACT%20SHEET .[id number] 13:19:44 Test Item Value Reference Range Interpretation Comments HAPTOGLOBIN (BEAKER) (test code = < mg/dL 14-258 L 366) Strawhat Sizer ID - JANET [id number] 13:01:02 Test Item Value Reference Range Interpretation Comments FERRITIN (BEAKER) (test code = 2376.55 ng/mL 5.00-275.00 H 361) Strawhat Sizer ID - JANET MOperator ID - JANET MRAD, CHEST, 1 VIEW, NON [id number] 12:06:00Reason for exam:->anemia, post transplant concern for infectionShould this be performed at the bedside?->Yes [facility] 1965 Sex: FFINAL REPORT CHEST ONE VIEW HISTORY: Anemia, infection COMPARISON: 05/18/2022 FINDINGS: Single portable AP examination of the chest was performed. There is mild airspace consolidation at the left lung base, significantly decreased since the prior study, suggestive of decreasing atelectasisor pneumonia. Subsegmental atelectasis in the right infrahilar region has also markedly decreased. No pleural effusions or pneumothorax. The heart shadow is normal in size. Right central venous catheter tip is in the region of the right atrium. Surgical aayush overlie the abdomen. Signed: Cody [place] Verified Date/Time: 05/26/2022 12:06:36 LACTATE DEHYDROGENASE (LDH)2022-05-26 11:29:05 Test Item Value Reference Range Interpretation Comments LACTATE DEHYDROGENASE (BEAKER) (test 452 U/L 125-220 H code = 635) Strawhat Sizer ID - JANET MTACROLIMUS [id number] 10:38:59 Test Item Value Reference Range Interpretation Comments TACROLIMUS BLOOD 5.9 ng/mL 10.0-20.0 L Test perfor med on Greer (BEAKER) (test code Architec t Immunoassay = 657) system with Chemiluminescen t Microparticle I mmunoassay (CMIA) technolo gy. RETICULOCYTE [id number] 10:17:40 Test Item Value Reference Range Interpretation Comments RETICULOCYTE COUNT PCT (BEAKER) (test 4.7 % 0.5-1.7 H code = 575) Strawhat Sizer ID - [id number] ID - [id number] W/PLT COUNT & AUTO DIFFERENTIAL 2022-05-26 08:13:56 Test Item Value Reference Range Interpretation Comments WHITE BLOOD CELL COUNT (BEAKER) 10.6 K/ L 3.5-10.5 H (test code = 775) RED BLOOD CELL COUNT (BEAKER) 1.74 M/ L 3.93-5.22 L (test code = 761) HEMOGLOBIN (BEAKER) (test code = 5.8 GM/DL 11.2-15.7 LL 410) HEMATOCRIT (BEAKER) (test code = 16.9 % 34.1-44.9 L 411) MEAN CORPUSCULAR VOLUME (BEAKER) 97.1 fL 79.4-94.8 H (test code = 753) MEAN CORPUSCULAR HEMOGLOBIN 33.3 pg 25.6-32.2 H (BEAKER) (test code = 751) MEAN CORPUSCULAR HEMOGLOBIN CONC 34.3 GM/DL 32.2-35.5 (BEAKER) (test code = 752) RED CELL DISTRIBUTION WIDTH 20.5 % 11.7-14.4 H (BEAKER) (test code = 412) PLATELET COUNT (BEAKER) (test 130 K/CU MM 150-450 L code = 756) MEAN PLATELET VOLUME (BEAKER) 12.9 fL 9.4-12.3 H (test code = 754) NUCLEATED RED BLOOD CELLS 0 /100 WBC 0-0 (BEAKER) (test code = 413) NEUTROPHILS RELATIVE PERCENT 78 % (BEAKER) (test code = 429) LYMPHOCYTES RELATIVE PERCENT 14 % (BEAKER) (test code = 430) MONOCYTES RELATIVE PERCENT 3 % (BEAKER) (test code = 431) EOSINOPHILS RELATIVE PERCENT 1 % (BEAKER) (test code = 432) BASOPHILS RELATIVE PERCENT 0 % (BEAKER) (test code = 437) NEUTROPHILS ABSOLUTE COUNT 8.23 K/ L 1.56-6.13 H (BEAKER) (test code = 670) LYMPHOCYTES ABSOLUTE COUNT 1.50 K/ L 1.18-3.74 (BEAKER) (test code = 414) MONOCYTES ABSOLUTE COUNT (BEAKER) 0.35 K/ L 0.24-0.36 (test code = 415) EOSINOPHILS ABSOLUTE COUNT 0.10 K/ L 0.04-0.36 (BEAKER) (test code = 416) BASOPHILS ABSOLUTE COUNT (BEAKER) 0.02 K/ L 0.01-0.08 (test code = 417) IMMATURE GRANULOCYTES-RELATIVE 4 % 0-1 H PERCENT (BEAKER) (test code = 2801) POCT-GLUCOSE [id number] 08:08:30 Test Item Value Reference Range Interpretation Comments POC-GLUCOSE METER 120 mg/dL 70-110 H : TESTED A T [facility] 6720 (BEAKER) (test code = [facility], 1538) [address]: Strawhat Sizer/Techni daren ID = [id number] for Kia Lau CBC W/PLT COUNT & AUTO [id number] 06:42:29 Test Item Value Reference Range Interpretation Comments WHITE BLOOD CELL COUNT (BEAKER) 10.0 K/ L 3.5-10.5 (test code = 775) RED BLOOD CELL COUNT (BEAKER) 1.80 M/ L 3.93-5.22 L (test code = 761) HEMOGLOBIN (BEAKER) (test code = 6.0 GM/DL 11.2-15.7 LL 410) HEMATOCRIT (BEAKER) (test code = 17.4 % 34.1-44.9 L 411) MEAN CORPUSCULAR VOLUME (BEAKER) 96.7 fL 79.4-94.8 H (test code = 753) MEAN CORPUSCULAR HEMOGLOBIN 33.3 pg 25.6-32.2 H (BEAKER) (test code = 751) MEAN CORPUSCULAR HEMOGLOBIN CONC 34.5 GM/DL 32.2-35.5 (BEAKER) (test code = 752) RED CELL DISTRIBUTION WIDTH 20.3 % 11.7-14.4 H (BEAKER) (test code = 412) PLATELET COUNT (BEAKER) (test 115 K/CU MM 150-450 L code = 756) MEAN PLATELET VOLUME (BEAKER) 12.9 fL 9.4-12.3 H (test code = 754) NUCLEATED RED BLOOD CELLS 0 /100 WBC 0-0 (BEAKER) (test code = 413) NEUTROPHILS RELATIVE PERCENT 80 % (BEAKER) (test code = 429) LYMPHOCYTES RELATIVE PERCENT 11 % (BEAKER) (test code = 430) MONOCYTES RELATIVE PERCENT 4 % (BEAKER) (test code = 431) EOSINOPHILS RELATIVE PERCENT 1 % (BEAKER) (test code = 432) BASOPHILS RELATIVE PERCENT 0 % (BEAKER) (test code = 437) NEUTROPHILS ABSOLUTE COUNT 7.96 K/ L 1.56-6.13 H (BEAKER) (test code = 670) LYMPHOCYTES ABSOLUTE COUNT 1.13 K/ L 1.18-3.74 L (BEAKER) (test code = 414) MONOCYTES ABSOLUTE COUNT (BEAKER) 0.36 K/ L 0.24-0.36 (test code = 415) EOSINOPHILS ABSOLUTE COUNT 0.09 K/ L 0.04-0.36 (BEAKER) (test code = 416) BASOPHILS ABSOLUTE COUNT (BEAKER) 0.02 K/ L 0.01-0.08 (test code = 417) IMMATURE GRANULOCYTES-RELATIVE 4 % 0-1 H PERCENT (BEAKER) (test code = 2801) BASIC METABOLIC [id number] 06:31:00 Test Item Value Reference Range Interpretation Comments SODIUM (BEAKER) 138 meq/L 136-145 (test code = 381) POTASSIUM 3.9 meq/L 3.5-5.1 (BEAKER) (test code = 379) CHLORIDE (BEAKER) 102 meq/L 98-107 (test code = 382) CO2 (BEAKER) 28 meq/L 22-29 (test code = 355) BLOOD UREA 25 mg/dL 7-21 H NITROGEN (BEAKER) (test code = 354) CREATININE 2.72 mg/dL 0.57-1.25 H (BEAKER) (test code = 358) GLUCOSE RANDOM 113 mg/dL 70-105 H (BEAKER) (test code = 652) CALCIUM (BEAKER) 8.3 mg/dL 8.4-10.2 L (test code = 697) EGFR (BEAKER) 20 Interpretatio n of eGFR (test code = mL/min/1.73 values Stage De scription 1092) sq m Result G1 Stephanie l or high >=90 G2 Mildly decreased 60-89 G3a Mildl y to moderately 45-5 9 G3b Moderately to s everely 30-44 G4 Sever ly decreased 15-29 G5 Kidney failure <15Repo rted eGFR is based on the CKD-EPI 2020 equation t hat does not use a race coefficientEsti mated GFR is not as accur ate as Creatinine Regina fara in predicting glom erular filtration rate . Estimated GFR is not appl icable for dialysis patien ts Strawhat Sizer ID - JANET MSpecimen moderately ictericHEPATIC FUNCTION [id number] 06:28:43 Test Item Value Reference Range Interpretation Comments TOTAL PROTEIN (BEAKER) (test code = 5.7 gm/dL 6.0-8.3 L 770) ALBUMIN (BEAKER) (test code = 1145) 2.8 g/dL 3.5-5.0 L BILIRUBIN TOTAL (BEAKER) (test code 5.2 mg/dL 0.2-1.2 H = 377) BILIRUBIN DIRECT (BEAKER) (test 3.0 mg/dL 0.1-0.5 H code = 706) ALKALINE PHOSPHATASE (BEAKER) (test 129 U/L 40-150 code = 346) AST (SGOT) (BEAKER) (test code = 14 U/L 5-34 353) ALT (SGPT) (BEAKER) (test code = 12 U/L 6-55 347) Strawhat Sizer ID - JANET MSpecimen moderately [id number] 06:28:42 Test Item Value Reference Range Interpretation Comments PHOSPHORUS (BEAKER) (test code = 1.8 mg/dL 2.3-4.7 L 604) Strawhat Sizer ID - JANET [id number] 06:28:41 Test Item Value Reference Range Interpretation Comments MAGNESIUM (BEAKER) (test code = 1.6 mg/dL 1.6-2.6 627) Strawhat Sizer ID - JANET MPROTHROMBIN [id number] 06:05:54 Test Item Value Reference Range Interpretation Comments PROTIME (BEAKER) 14.7 seconds 11.9-14.2 H (test code = 759) INR (BEAKER) (test 1.22 See_Comment [Automat ed message] code = 370) The system Vamo generated this result transmitted ref erence range: <=5.90. The reference range was not used to int erpret this result as normal/abnormal . RECOMMENDED COUMADIN/WARFARIN INR THERAPY RANGESSTANDARD DOSE: 2.0 - 3.0 Includes: PROPHYLAXIS for venous thrombosis, systemic embolization; TREATMENT for venous thrombosis and/or pulmonary embolus.HIGH RISK: Target INR is 2.5-3.5 for patients with mechanical heart valves.POCT-GLUCOSE [id number] 21:39:20 Test Item Value Reference Range Interpretation Comments POC-GLUCOSE METER 108 mg/dL 70-110 : TESTED A T [facility] 6720 (Taktio) (test code = [facility], 1538) [address]: Strawhat Sizer/Techni daren ID = [id number] for ROMARIO KO POCT-GLUCOSE [id number] 17:51:11 Test Item Value Reference Range Interpretation Comments POC-GLUCOSE METER 111 mg/dL 70-110 H : TESTED A T [facility] 6720 (Taktio) (test code = [facility], 1538) [address]: Strawhat Sizer/Techni daren ID = [id number] for Catie Cardona TACROLIMUS [id number] 10:29:40 Test Item Value Reference Range Interpretation Comments TACROLIMUS BLOOD 8.8 ng/mL 10.0-20.0 L Test perfor med on Greer ([facility]) (test code Architec t Immunoassay = 657) system with Chemiluminescen t Microparticle I mmunoassay (CMIA) technolo gy. POCT-GLUCOSE [id number] 08:18:25 Test Item Value Reference Range Interpretation Comments POC-GLUCOSE METER 115 mg/dL 70-110 H : TESTED A T [facility] 6720 ([employer]) (test code [facility], = 1538) [id number]: Strawhat Sizer/Techni daren ID = [id number] for Carolyn Ruiz BASIC METABOLIC [id number] 07:04:56 Test Item Value Reference Range Interpretation Comments SODIUM (BEAKER) 137 meq/L 136-145 (test code = 381) POTASSIUM 3.4 meq/L 3.5-5.1 L (BEAKER) (test code = 379) CHLORIDE (BEAKER) 101 meq/L 98-107 (test code = 382) CO2 (BEAKER) 26 meq/L 22-29 (test code = 355) BLOOD UREA 39 mg/dL 7-21 H NITROGEN (BEAKER) (test code = 354) CREATININE 4.13 mg/dL 0.57-1.25 H (BEAKER) (test code = 358) GLUCOSE RANDOM 111 mg/dL 70-105 H (BEAKER) (test code = 652) CALCIUM (BEAKER) 7.8 mg/dL 8.4-10.2 L (test code = 697) EGFR (BEAKER) 12 Interpretatio n of eGFR (test code = mL/min/1.73 values Stage De scription 1092) sq m Result G1 Stephanie l or high >=90 G2 Mildly decreased 60-89 G3a Mildl y to moderately 45-5 9 G3b Moderately to s everely 30-44 G4 Severl y decreased 15-29 G5 Kidney failure <15Reported eGF R is based on the CKD-EPI 2020 equation that d oes not use a race coefficientEsti mated GFR is not as accur ate as Creatinine Regina fara in predicting glom erular filtration rate . Estimated GFR is not appl icable for dialysis patien ts Strawhat Sizer ID - [id number] LSpecimen slightly [id number] 06:52:52 Test Item Value Reference Range Interpretation Comments PHOSPHORUS (BEAKER) (test code = 3.2 mg/dL 2.3-4.7 604) Strawhat Sizer ID - MARCY LHEPATIC FUNCTION [id number] 06:52:52 Test Item Value Reference Range Interpretation Comments TOTAL PROTEIN (BEAKER) (test code = 5.5 gm/dL 6.0-8.3 L 770) ALBUMIN (BEAKER) (test code = 1145) 2.7 g/dL 3.5-5.0 L BILIRUBIN TOTAL (BEAKER) (test code 3.5 mg/dL 0.2-1.2 H = 377) BILIRUBIN DIRECT (BEAKER) (test 2.5 mg/dL 0.1-0.5 H code = 706) ALKALINE PHOSPHATASE (BEAKER) (test 154 U/L 40-150 H code = 346) AST (SGOT) (BEAKER) (test code = 11 U/L 5-34 353) ALT (SGPT) (BEAKER) (test code = 11 U/L 6-55 347) Strawhat Sizer ID Rosina VIDAL LSpecimen slightly [id number] 06:52:51 Test Item Value Reference Range Interpretation Comments MAGNESIUM (BEAKER) (test code = 1.7 mg/dL 1.6-2.6 627) Strawhat Sizer ID Rosina VIDAL LCBC W/PLT COUNT & AUTO [id number] 06:43:11 Test Item Value Reference Range Interpretation Comments WHITE BLOOD CELL COUNT 7.8 K/ L 3.5-10.5 (BEAKER) (test code = 775) RED BLOOD CELL COUNT 2.35 M/ L 3.93-5.22 L (BEAKER) (test code = 761) HEMOGLOBIN (BEAKER) 7.4 GM/DL 11.2-15.7 L (test code = 410) HEMATOCRIT (BEAKER) 21.9 % 34.1-44.9 L (test code = 411) MEAN CORPUSCULAR VOLUME 93.2 fL 79.4-94.8 (BEAKER) (test code = 753) MEAN CORPUSCULAR 31.5 pg 25.6-32.2 HEMOGLOBIN (BEAKER) (test code = 751) MEAN CORPUSCULAR 33.8 GM/DL 32.2-35.5 HEMOGLOBIN CONC (BEAKER) (test code = 752) RED CELL DISTRIBUTION 18.3 % 11.7-14.4 H WIDTH (BEAKER) (test code = 412) PLATELET COUNT (BEAKER) 69 K/CU MM 150-450 L (test code = 756) MEAN PLATELET VOLUME Unable to report due (BEAKER) (test code = to abn ormal Platelet 754) population distribution. NUCLEATED RED BLOOD 0 /100 WBC 0-0 CELLS (BEAKER) (test code = 413) NEUTROPHILS RELATIVE 81 % PERCENT (BEAKER) (test code = 429) LYMPHOCYTES RELATIVE 10 % PERCENT (BEAKER) (test code = 430) MONOCYTES RELATIVE 4 % PERCENT (BEAKER) (test code = 431) EOSINOPHILS RELATIVE 1 % PERCENT (BEAKER) (test code = 432) BASOPHILS RELATIVE 0 % PERCENT (BEAKER) (test code = 437) NEUTROPHILS ABSOLUTE 6.29 K/ L 1.56-6.13 H COUNT (BEAKER) (test code = 670) LYMPHOCYTES ABSOLUTE 0.81 K/ L 1.18-3.74 L COUNT (BEAKER) (test code = 414) MONOCYTES ABSOLUTE 0.30 K/ L 0.24-0.36 COUNT (BEAKER) (test code = 415) EOSINOPHILS ABSOLUTE 0.10 K/ L 0.04-0.36 COUNT (BEAKER) (test code = 416) BASOPHILS ABSOLUTE 0.02 K/ L 0.01-0.08 COUNT (BEAKER) (test code = 417) IMMATURE 3 % 0-1 H GRANULOCYTES-RELATIVE PERCENT (BEAKER) (test code = 2801) PROTHROMBIN [id number] 06:20:52 Test Item Value Reference Range Interpretation Comments PROTIME (BEAKER) 14.3 seconds 11.9-14.2 H (test code = 759) INR (BEAKER) (test 1.13 See_Comment [Automat ed message] code = 370) The system Vamo generated this result transmitted ref erence range: <=5.90. The reference range was not used to int erpret this result as normal/abnormal . RECOMMENDED COUMADIN/WARFARIN INR THERAPY RANGESSTANDARD DOSE: 2.0 - 3.0 Includes: PROPHYLAXIS for venous thrombosis, systemic embolization; TREATMENT for venous thrombosis and/or pulmonary embolus.HIGH RISK: Target INR is 2.5-3.5 for patients with mechanical heart valves.POCT-GLUCOSE [id number] 21:23:18 Test Item Value Reference Range Interpretation Comments POC-GLUCOSE METER 153 mg/dL 70-110 H : TESTED A T [facility] 6720 (BEAKER) (test code = [employer] [facility], 1538) [address]: Strawhat Sizer/Techni daren ID = [id number] for CYNTHIA MATIAS POCT-GLUCOSE [id number] 17:54:21 Test Item Value Reference Range Interpretation Comments POC-GLUCOSE METER 117 mg/dL 70-110 H : TESTED A T [facility] 6720 (BEAKER) (test code = [employer] [facility], 1538) [address]: Strawhat Sizer/Techni daren ID = [id number] for Chang hobson Corry BLOOD [id number] 17:00:29 Test Item Value Reference Range Interpretation Comments CULTURE (BEAKER) (test No growth in 5 days code = 1095) SARS-COV2/RT-PCR ([facility])2022-05-24 14:10:18 Test Item Value Reference Range Interpretation Comments SARS-COV2/RT-PCR Negative Negative The SARS-Co V-2 target (test code = nucleic acids a re not 6551963) detected in thi s specimen. Negative result s do not preclude SARS-C oV-2 infection and s hould not be used as the derick e basis for patient managem ent decisions. Nega tive results must be combine d with clinical observ ations, patient history , and epidemiological information. A false negativ e result may occur if a spec imen is improperly erika ected, transported or handled. This SARS CoV-2 test is a rapid, real-time RT-PC R test intended for th e qualitative detection of nu cleic acid from SARS-CoV-2 in a nasopharyngeal swab specimen collected from individuals suspected of CO VID-19 by their healthcar e provider. This test has been authorized by FDA under an EUA for use by authorized laboratories. This test is only authorized for the duration of the declaration that circumstances exist justifying the authorization of emergency use of in vitro diagnostic tests for detection and/or diagnosis of COVID-19 under Section 564(b)(1) of the Federal Food, Drug and Cosmetic Act, 21 U.S.C. 360bbb-3(b)(1), unless the authorization is terminated or revoked sooner. Fact Sheet for Healthcare Providers: https://www.TradeCloud.nl.co m/Documents/Xpert%20Xpress%20SARS%20CoV-2/Fact%20Sheets/609-4652%15RYWN-LOU-7%20 HEALTHCARE%20PROVIDERS%20FACT%20SHEET.pdf Fact Sheet for Healthcare Patients: https://www.Xoopit/Documents/Xpert%20Xp ress%20SARS%20CoV-2/Fact%20Sheets/009-3801%04TWAY-FOB-3%20PATIENT%20FACT%20SHEET .pdfTACROLIMUS [id number] 11:39:54 Test Item Value Reference Range Interpretation Comments TACROLIMUS BLOOD 8.9 ng/mL 10.0-20.0 L Test perfor med on Greer (BEAKER) (test code Architec t Immunoassay = 657) system with Chemiluminescen t Microparticle I mmunoassay (CMIA) mitchel garcia (CELLAVISION MANUAL DIFF)2022-05-24 09:10:32 Test Item Value Reference Range Interpretation Comments NEUTROPHILS - REL 81 % (CELLAVISION)(BEAKER) (test code = 2816) LYMPHOCYTES - REL 11 % (CELLAVISION)(BEAKER) (test code = 2817) MONOCYTES - REL 2 % (CELLAVISION)(BEAKER) (test code = 2818) EOSINOPHILS - REL 4 % (CELLAVISION)(BEAKER) (test code = 2819) BANDS - REL (CELLAVISION)(BEAKER) 2 % 0-10 (test code = 2826) NEUTROPHILS - ABS 4.70 K/ul 1.56-6.13 (CELLAVISION)(BEAKER) (test code = 2830) LYMPHOCYTES - ABS 0.64 K/ul 1.18-3.74 L (CELLAVISION)(BEAKER) (test code = 2831) MONOCYTES - ABS 0.12 K/uL 0.24-0.36 L (CELLAVISION)(BEAKER) (test code = 2832) EOSINOPHILS - ABS 0.23 K/uL 0.04-0.36 (CELLAVISION)(BEAKER) (test code = 2834) BANDS - ABS (CELLAVISION)(BEAKER) 0.12 K/uL 0.00-0.80 (test code = 2840) TOTAL COUNTED (BEAKER) (test code = 100 1351) WBC MORPHOLOGY (BEAKER) (test code Normal = 487) PLT MORPHOLOGY (BEAKER) (test code Normal = 486) POLYCHROMATOPHILLIC RBCS(BEAKER) 1+ few (test code = 478) ARTIFACT (CELLAVISION)(BEAKER) Present (test code = 3432) PLATELET CONCENTRATION Decreased (CELLAVISION)(BEAKER) (test code = 3438) Strawhat Sizer ID - [id number] ID - Joan OverholtUser comments: Slide comments:CBC W/PLT COUNT & AUTO [id number] 09:10:31 Test Item Value Reference Range Interpretation Comments WHITE BLOOD CELL COUNT (BEAKER) 5.8 K/ L 3.5-10.5 (test code = 775) RED BLOOD CELL COUNT (BEAKER) 2.57 M/ L 3.93-5.22 L (test code = 761) HEMOGLOBIN (BEAKER) (test code = 7.9 GM/DL 11.2-15.7 L 410) HEMATOCRIT (BEAKER) (test code = 23.0 % 34.1-44.9 L 411) MEAN CORPUSCULAR VOLUME (BEAKER) 89.5 fL 79.4-94.8 (test code = 753) MEAN CORPUSCULAR HEMOGLOBIN 30.7 pg 25.6-32.2 (BEAKER) (test code = 751) MEAN CORPUSCULAR HEMOGLOBIN CONC 34.3 GM/DL 32.2-35.5 (BEAKER) (test code = 752) RED CELL DISTRIBUTION WIDTH 18.0 % 11.7-14.4 H (BEAKER) (test code = 412) PLATELET COUNT (BEAKER) (test code 54 K/CU MM 150-450 L = 756) MEAN PLATELET VOLUME (BEAKER) 14.1 fL 9.4-12.3 H (test code = 754) NUCLEATED RED BLOOD CELLS (BEAKER) 0 /100 WBC 0-0 (test code = 413) COMPREHENSIVE METABOLIC [id number] 07:20:53 Test Item Value Reference Range Interpretation Comments TOTAL PROTEIN 5.3 gm/dL 6.0-8.3 L (BEAKER) (test code = 770) ALBUMIN (BEAKER) 2.7 g/dL 3.5-5.0 L (test code = 1145) ALKALINE 159 U/L 40-150 H PHOSPHATASE (BEAKER) (test code = 346) BILIRUBIN TOTAL 3.3 mg/dL 0.2-1.2 H (BEAKER) (test code = 377) SODIUM (BEAKER) 137 meq/L 136-145 (test code = 381) POTASSIUM (BEAKER) 3.3 meq/L 3.5-5.1 L (test code = 379) CHLORIDE (BEAKER) 102 meq/L 98-107 (test code = 382) CO2 (BEAKER) (test 25 meq/L 22-29 code = 355) BLOOD UREA 22 mg/dL 7-21 H NITROGEN (BEAKER) (test code = 354) CREATININE 2.94 mg/dL 0.57-1.25 H (BEAKER) (test code = 358) GLUCOSE RANDOM 128 mg/dL 70-105 H (BEAKER) (test code = 652) CALCIUM (BEAKER) 7.9 mg/dL 8.4-10.2 L (test code = 697) AST (SGOT) 11 U/L 5-34 (BEAKER) (test code = 353) ALT (SGPT) 15 U/L 6-55 (BEAKER) (test code = 347) EGFR (BEAKER) 18 Interpretatio n of eGFR (test code = 1092) mL/min/1.[address] age Description sq m Result G1 Stephanie l or high >=90 G2 Mildly decreased 60-89 G3a Mildl y to moderately 45-5 9 G3b Moderately to s everely 30-44 G4 Severl y decreased 15-29 G5 Kidney failure <15Reported eGF R is based on the CKD-EPI 2020 equation that d oes not use a race coefficientEsti mated GFR is not as accur ate as Creatinine Regina fara in predicting glom erular filtration rate . Estimated GFR is not appl icable for dialysis patien ts Strawhat Sizer ID - ADSANDI GLORIApecimen slightly ictericHEPATIC FUNCTION [id number] 07:15:43 Test Item Value Reference Range Interpretation Comments TOTAL PROTEIN (BEAKER) (test code = 5.3 gm/dL 6.0-8.3 L 770) ALBUMIN (BEAKER) (test code = 1145) 2.7 g/dL 3.5-5.0 L BILIRUBIN TOTAL (BEAKER) (test code 3.3 mg/dL 0.2-1.2 H = 377) BILIRUBIN DIRECT (BEAKER) (test 2.3 mg/dL 0.1-0.5 H code = 706) ALKALINE PHOSPHATASE (BEAKER) (test 159 U/L 40-150 H code = 346) AST (SGOT) (BEAKER) (test code = 11 U/L 5-34 353) ALT (SGPT) (BEAKER) (test code = 15 U/L 6-55 347) Strawhat Sizer BRYAN Rosina VIDAL GLORIApecimen slightly [id number] 07:15:34 Test Item Value Reference Range Interpretation Comments MAGNESIUM (BEAKER) (test code = 1.6 mg/dL 1.6-2.6 627) Strawhat Sizer ID - MARCY [id number] 07:15:34 Test Item Value Reference Range Interpretation Comments PHOSPHORUS (BEAKER) (test code = 3.4 mg/dL 2.3-4.7 604) Strawhat Sizer ID - MARCY LCALCIUM, [id number] 07:01:07 Test Item Value Reference Range Interpretation Comments CALCIUM IONIZED (BEAKER) (test 1.03 mmol/L 1.12-1.27 L code = 698) PH, BLOOD (BEAKER) (test code = 7.45 1810) PROTHROMBIN [id number] 07:00:09 Test Item Value Reference Range Interpretation Comments PROTIME (BEAKER) 14.3 seconds 11.9-14.2 H (test code = 759) INR (BEAKER) (test 1.17 See_Comment [Automat ed message] code = 370) The system Vamo generated this result transmitted ref erence range: <=5.90. The reference range was not used to int erpret this result as normal/abnormal . RECOMMENDED COUMADIN/WARFARIN INR THERAPY RANGESSTANDARD DOSE: 2.0 - 3.0 Includes: PROPHYLAXIS for venous thrombosis, systemic embolization; TREATMENT for venous thrombosis and/or pulmonary embolus.HIGH RISK: Target INR is 2.5-3.5 for patients with mechanical heart valves.[id number] 21:50:17 Test Item Value Reference Range Interpretation Comments PHOSPHORUS (BEAKER) (test code = 5.0 mg/dL 2.3-4.7 H 604) Strawhat Sizer ID - BSPOCT-GLUCOSE [id number] 16:21:10 Test Item Value Reference Range Interpretation Comments POC-GLUCOSE METER 129 mg/dL 70-110 H : TESTED A T [facility] 6720 (BEAKER) ([facility] code [facility], = 1538) [id number]: Strawhat Sizer/Techni daren ID = [id number] for Carolyn Ruiz [id number] 14:20:50 Test Item Value Reference Range Interpretation Comments PHOSPHORUS (BEAKER) (test code = 1.0 mg/dL 2.3-4.7 LL 604) Strawhat Sizer BRYAN GONZALES MCOMPREHENSIVE METABOLIC [id number] 14:17:22 Test Item Value Reference Range Interpretation Comments TOTAL PROTEIN 7.0 gm/dL 6.0-8.3 (BEAKER) (test code = 770) ALBUMIN (BEAKER) 3.6 g/dL 3.5-5.0 (test code = 1145) ALKALINE 214 U/L 40-150 H PHOSPHATASE (BEAKER) (test code = 346) BILIRUBIN TOTAL 4.3 mg/dL 0.2-1.2 H (BEAKER) (test code = 377) SODIUM (BEAKER) 139 meq/L 136-145 (test code = 381) POTASSIUM (BEAKER) 4.0 meq/L 3.5-5.1 (test code = 379) CHLORIDE (BEAKER) 101 meq/L 98-107 (test code = 382) CO2 (BEAKER) (test 26 meq/L 22-29 code = 355) BLOOD UREA 7 mg/dL 7-21 NITROGEN (BEAKER) (test code = 354) CREATININE 1.13 mg/dL 0.57-1.25 (BEAKER) (test code = 358) GLUCOSE RANDOM 112 mg/dL 70-105 H (BEAKER) (test code = 652) CALCIUM (BEAKER) 9.1 mg/dL 8.4-10.2 (test code = 697) AST (SGOT) 14 U/L 5-34 (BEAKER) (test code = 353) ALT (SGPT) 22 U/L 6-55 (BEAKER) (test code = 347) EGFR (BEAKER) 57 Interpretatio n of eGFR (test code = 1092) mL/min/1.[address] age Description sq m Result G1 Stephanie l or high >=90 G2 Mildly decreased 60-89 G3a Mildl y to moderately 45-5 9 G3b Moderately to s everely 30-44 G4 Severl y decreased 15-29 G5 Kidney failure <15Reported eGF R is based on the CKD-EPI 2020 equation that d oes not use a race coefficientEsti mated GFR is not as accur ate as Creatinine Regina chaudhari in predicting glom erular filtration rate . Estimated GFR is not appl icable for dialysis patien ts Strawhat Sizer BRYAN GONZALES MSpecimen slightly ictericHEPATIC FUNCTION [id number] 14:17:21 Test Item Value Reference Range Interpretation Comments TOTAL PROTEIN (BEAKER) (test code = 7.0 gm/dL 6.0-8.3 770) ALBUMIN (BEAKER) (test code = 1145) 3.6 g/dL 3.5-5.0 BILIRUBIN TOTAL (BEAKER) (test code 4.3 mg/dL 0.2-1.2 H = 377) BILIRUBIN DIRECT (BEAKER) (test 2.8 mg/dL 0.1-0.5 H code = 706) ALKALINE PHOSPHATASE (BEAKER) (test 214 U/L 40-150 H code = 346) AST (SGOT) (BEAKER) (test code = 14 U/L 5-34 353) ALT (SGPT) (BEAKER) (test code = 22 U/L 6-55 347) Strawhat Sizer ID - JANET MSpecimen slightly [id number] 14:14:23 Test Item Value Reference Range Interpretation Comments MAGNESIUM (BEAKER) (test code = 1.9 mg/dL 1.6-2.6 627) Strawhat Sizer ID - JANET MPROTHROMBIN [id number] 14:05:36 Test Item Value Reference Range Interpretation Comments PROTIME (BEAKER) 14.1 seconds 11.9-14.2 (test code = 759) INR (BEAKER) (test 1.15 See_Comment [Automat ed message] code = 370) The system Vamo generated this result transmitted ref erence range: <=5.90. The reference range was not used to int erpret this result as normal/abnormal . RECOMMENDED COUMADIN/WARFARIN INR THERAPY RANGESSTANDARD DOSE: 2.0 - 3.0 Includes: PROPHYLAXIS for venous thrombosis, systemic embolization; TREATMENT for venous thrombosis and/or pulmonary embolus.HIGH RISK: Target INR is 2.5-3.5 for patients with mechanical heart valves.POCT-GLUCOSE [id number] 11:53:37 Test Item Value Reference Range Interpretation Comments POC-GLUCOSE METER 115 mg/dL 70-110 H : TESTED A T [facility] 6720 (BEAKER) (test code = [place], 1538) [address]: Strawhat Sizer/Techni daren ID = [id number] for ZULLY SHANKAR POCT-GLUCOSE [id number] 11:26:37 Test Item Value Reference Range Interpretation Comments POC-GLUCOSE METER 117 mg/dL 70-110 H : TESTED A T [facility] 6720 (BEAKER) (test code = QUIN Quintana [facility], 1538) [address]: Strawhat Sizer/Techni daren ID = [id number] for Emilee Forbes TACROLIMUS [id number] 09:17:11 Test Item Value Reference Range Interpretation Comments TACROLIMUS BLOOD 7.2 ng/mL 10.0-20.0 L Test perfor med on Greer (BEAKER) (test code Architec t Immunoassay = 657) system with Chemiluminescen t Microparticle I mmunoassay (CMIA) technolo gy. POCT-GLUCOSE [id number] 08:19:00 Test Item Value Reference Range Interpretation Comments POC-GLUCOSE METER 111 mg/dL 70-110 H : TESTED A T [facility] 6720 (BEAKER) (test code = [facility], 1538) [address]: Strawhat Sizer/Techni daren ID = [id number] for ZULLY SHANKAR (CELLAVISION MANUAL DIFF)2022-05-23 07:56:17 Test Item Value Reference Range Interpretation Comments TOTAL COUNTED (BEAKER) (test code = 1351) WBC MORPHOLOGY (BEAKER) (test code = Normal 487) PLT MORPHOLOGY (BEAKER) (test code = Normal 486) POLYCHROMATOPHILLIC RBCS(BEAKER) (test 1+ few code = 478) ANISOCYTOSIS (BEAKER) (test code = 1+ few 961) MACROCYTES (BEAKER) (test code = 964) 1+ few POIKILOCYTES (BEAKER) (test code = 1+ few 966) Strawhat Sizer ID - [id number] W/PLT COUNT & AUTO [id number] 07:56:15 Test Item Value Reference Range Interpretation Comments WHITE BLOOD CELL COUNT 5.1 K/ L 3.5-10.5 (BEAKER) (test code = 775) RED BLOOD CELL COUNT 2.97 M/ L 3.93-5.22 L (BEAKER) (test code = 761) HEMOGLOBIN (BEAKER) 8.8 GM/DL 11.2-15.7 L (test code = 410) HEMATOCRIT (BEAKER) 26.5 % 34.1-44.9 L (test code = 411) MEAN CORPUSCULAR VOLUME 89.2 fL 79.4-94.8 (BEAKER) (test code = 753) MEAN CORPUSCULAR 29.6 pg 25.6-32.2 HEMOGLOBIN (BEAKER) (test code = 751) MEAN CORPUSCULAR 33.2 GM/DL 32.2-35.5 HEMOGLOBIN CONC (BEAKER) (test code = 752) RED CELL DISTRIBUTION 17.8 % 11.7-14.4 H WIDTH (BEAKER) (test code = 412) PLATELET COUNT (BEAKER) 43 K/CU MM 150-450 L (test code = 756) MEAN PLATELET VOLUME Unable to report (BEAKER) (test code = due to abnormal 754) platelet population. NUCLEATED RED BLOOD 0 /100 WBC 0-0 CELLS (BEAKER) (test code = 413) NEUTROPHILS RELATIVE 77 % PERCENT (BEAKER) (test code = 429) LYMPHOCYTES RELATIVE 13 % PERCENT (BEAKER) (test code = 430) MONOCYTES RELATIVE 6 % PERCENT (BEAKER) (test code = 431) EOSINOPHILS RELATIVE 1 % PERCENT (BEAKER) (test code = 432) BASOPHILS RELATIVE 1 % PERCENT (BEAKER) (test code = 437) NEUTROPHILS ABSOLUTE 3.90 K/ L 1.56-6.13 COUNT (BEAKER) (test code = 670) LYMPHOCYTES ABSOLUTE 0.68 K/ L 1.18-3.74 L COUNT (BEAKER) (test code = 414) MONOCYTES ABSOLUTE COUNT 0.31 K/ L 0.24-0.36 (BEAKER) (test code = 415) EOSINOPHILS ABSOLUTE 0.06 K/ L 0.04-0.36 COUNT (BEAKER) (test code = 416) BASOPHILS ABSOLUTE COUNT 0.03 K/ L 0.01-0.08 (BEAKER) (test code = 417) IMMATURE 2 % 0-1 H GRANULOCYTES-RELATIVE PERCENT (BEAKER) (test code = 2801) POCT-GLUCOSE [id number] 21:35:21 Test Item Value Reference Range Interpretation Comments POC-GLUCOSE METER 151 mg/dL 70-110 H : TESTED A T [facility] 6720 (BEAKER) (test code = [place], 1538) [address]: Strawhat Sizer/Techni daren ID = [id number] for Jackson Travis CBC W/PLT COUNT & AUTO [id number] 19:06:26 Test Item Value Reference Range Interpretation Comments WHITE BLOOD CELL COUNT 5.3 K/ L 3.5-10.5 (BEAKER) (test code = 775) RED BLOOD CELL COUNT 3.24 M/ L 3.93-5.22 L (BEAKER) (test code = 761) HEMOGLOBIN (BEAKER) 9.8 GM/DL 11.2-15.7 L (test code = 410) HEMATOCRIT (BEAKER) 28.4 % 34.1-44.9 L (test code = 411) MEAN CORPUSCULAR VOLUME 87.7 fL 79.4-94.8 (BEAKER) (test code = 753) MEAN CORPUSCULAR 30.2 pg 25.6-32.2 HEMOGLOBIN (BEAKER) (test code = 751) MEAN CORPUSCULAR 34.5 GM/DL 32.2-35.5 HEMOGLOBIN CONC (BEAKER) (test code = 752) RED CELL DISTRIBUTION 17.4 % 11.7-14.4 H WIDTH (BEAKER) (test code = 412) PLATELET COUNT (BEAKER) 47 K/CU MM 150-450 L (test code = 756) MEAN PLATELET VOLUME Unable to report due (BEAKER) (test code = to abn ormal Platelet 754) population distribution. NUCLEATED RED BLOOD 0 /100 WBC 0-0 CELLS (BEAKER) (test code = 413) POCT-GLUCOSE [id number] 17:44:31 Test Item Value Reference Range Interpretation Comments POC-GLUCOSE METER 215 mg/dL 70-110 H : TESTED A T [facility] 6720 (BEAKER) (test code = [place], 1538) [address]: Strawhat Sizer/Techni daren ID = [id number] for Biju Navas 2D Echo W/Doppler(CW/PW/Color)2022-05-22 15:54:02Ejection FractionSLEH ECHO HEARTLAB [facility]CKESSWood[facility] Hospital2[facility] W/Doppler(CW/PW/Color)2022-05-22 15:54:02Ejection FractionSLEH ECHO HEARTLAB MKCKESSON [facility]CR[facility] [id number] 12:05:34 Test Item Value Reference Range Interpretation Comments TACROLIMUS BLOOD 7.1 ng/mL 10.0-20.0 L Test perfor med on Greer (BEAKER) (test code Architec t Immunoassay = 657) system with Chemiluminescen t Microparticle I mmunoassay (CMIA) technolo gy. POCT-GLUCOSE [id number] 11:04:08 Test Item Value Reference Range Interpretation Comments POC-GLUCOSE METER 124 mg/dL 70-110 H : TESTED A T [facility] 6720 (BEAKER) (test code = QU[place] Quintana [place], 1538) [id number]: Strawhat Sizer/Techni daren ID = [id number] for LIANA FAHAD (V)RUT (CELLAVISION MANUAL DIFF)2022-05-22 10:20:38 Test Item Value Reference Range Interpretation Comments NEUTROPHILS - REL 80 % (CELLAVISION)(BEAKER) (test code = 2816) LYMPHOCYTES - REL 5 % (CELLAVISION)(BEAKER) (test code = 2817) MONOCYTES - REL 6 % (CELLAVISION)(BEAKER) (test code = 2818) BANDS - REL (CELLAVISION)(BEAKER) 9 % 0-10 (test code = 2826) NEUTROPHILS - ABS 2.80 K/ul 1.56-6.13 (CELLAVISION)(BEAKER) (test code = 2830) LYMPHOCYTES - ABS 0.18 K/ul 1.18-3.74 L (CELLAVISION)(BEAKER) (test code = 2831) MONOCYTES - ABS 0.21 K/uL 0.24-0.36 L (CELLAVISION)(BEAKER) (test code = 2832) BANDS - ABS (CELLAVISION)(BEAKER) 0.32 K/uL 0.00-0.80 (test code = 2840) TOTAL COUNTED (BEAKER) (test code = 100 1351) WBC MORPHOLOGY (BEAKER) (test code Normal = 487) PLT MORPHOLOGY (BEAKER) (test code Normal = 486) POLYCHROMATOPHILLIC RBCS(BEAKER) 1+ few (test code = 478) ANISOCYTOSIS (BEAKER) (test code = 1+ few 961) ARTIFACT (CELLAVISION)(BEAKER) Present (test code = 3432) PLATELET CONCENTRATION Decreased (CELLAVISION)(BEAKER) (test code = 3438) Strawhat Sizer ID - [id number] ID - Joan OverholtUser comments: Slide comments:CBC W/PLT COUNT & AUTO [id number] 10:20:36 Test Item Value Reference Range Interpretation Comments WHITE BLOOD CELL COUNT (BEAKER) 3.5 K/ L 3.5-10.5 (test code = 775) RED BLOOD CELL COUNT (BEAKER) 2.03 M/ L 3.93-5.22 L (test code = 761) HEMOGLOBIN (BEAKER) (test code = 6.0 GM/DL 11.2-15.7 LL 410) HEMATOCRIT (BEAKER) (test code = 18.7 % 34.1-44.9 L 411) MEAN CORPUSCULAR VOLUME (BEAKER) 92.1 fL 79.4-94.8 (test code = 753) MEAN CORPUSCULAR HEMOGLOBIN 29.6 pg 25.6-32.2 (BEAKER) (test code = 751) MEAN CORPUSCULAR HEMOGLOBIN CONC 32.1 GM/DL 32.2-35.5 L (BEAKER) (test code = 752) RED CELL DISTRIBUTION WIDTH 18.3 % 11.7-14.4 H (BEAKER) (test code = 412) PLATELET COUNT (BEAKER) (test code 26 K/CU MM 150-450 L = 756) MEAN PLATELET VOLUME (BEAKER) 13.0 fL 9.4-12.3 H (test code = 754) NUCLEATED RED BLOOD CELLS (BEAKER) 0 /100 WBC 0-0 (test code = 413) (CELLAVISION MANUAL DIFF)2022-05-22 08:45:20 Test Item Value Reference Range Interpretation Comments NEUTROPHILS - REL 77 % (CELLAVISION)(BEAKER) (test code = 2816) LYMPHOCYTES - REL 8 % (CELLAVISION)(BEAKER) (test code = 2817) MONOCYTES - REL 7 % (CELLAVISION)(BEAKER) (test code = 2818) BANDS - REL (CELLAVISION)(BEAKER) 8 % 0-10 (test code = 2826) NEUTROPHILS - ABS 3.08 K/ul 1.56-6.13 (CELLAVISION)(BEAKER) (test code = 2830) LYMPHOCYTES - ABS 0.32 K/ul 1.18-3.74 L (CELLAVISION)(BEAKER) (test code = 2831) MONOCYTES - ABS 0.28 K/uL 0.24-0.36 (CELLAVISION)(BEAKER) (test code = 2832) BANDS - ABS (CELLAVISION)(BEAKER) 0.32 K/uL 0.00-0.80 (test code = 2840) TOTAL COUNTED (BEAKER) (test code = 100 1351) WBC MORPHOLOGY (BEAKER) (test code Normal = 487) PLT MORPHOLOGY (BEAKER) (test code Normal = 486) POLYCHROMATOPHILLIC RBCS(BEAKER) 1+ few (test code = 478) ANISOCYTOSIS (BEAKER) (test code = 1+ few 961) ARTIFACT (CELLAVISION)(BEAKER) Present (test code = 3432) PLATELET CONCENTRATION Decreased (CELLAVISION)(BEAKER) (test code = 3438) Strawhat Sizer ID - [id number] ID - Joan OverholtUser comments: Slide comments:CBC W/PLT COUNT & AUTO [id number] 08:45:18 Test Item Value Reference Range Interpretation Comments WHITE BLOOD CELL COUNT 4.0 K/ L 3.5-10.5 (BEAKER) (test code = 775) RED BLOOD CELL COUNT 2.22 M/ L 3.93-5.22 L (BEAKER) (test code = 761) HEMOGLOBIN (BEAKER) 6.5 GM/DL 11.2-15.7 L (test code = 410) HEMATOCRIT (BEAKER) 19.7 % 34.1-44.9 L (test code = 411) MEAN CORPUSCULAR VOLUME 88.7 fL 79.4-94.8 (BEAKER) (test code = 753) MEAN CORPUSCULAR 29.3 pg 25.6-32.2 HEMOGLOBIN (BEAKER) (test code = 751) MEAN CORPUSCULAR 33.0 GM/DL 32.2-35.5 HEMOGLOBIN CONC (BEAKER) (test code = 752) RED CELL DISTRIBUTION 18.3 % 11.7-14.4 H WIDTH (BEAKER) (test code = 412) PLATELET COUNT (BEAKER) 30 K/CU MM 150-450 L (test code = 756) MEAN PLATELET VOLUME Unable to report due (BEAKER) (test code = to abn ormal Platelet 754) population distribution. NUCLEATED RED BLOOD 0 /100 WBC 0-0 CELLS (BEAKER) (test code = 413) POCT-GLUCOSE [id number] 07:38:03 Test Item Value Reference Range Interpretation Comments POC-GLUCOSE METER 108 mg/dL 70-110 : TESTED A T [facility] 6720 (BEAKER) (test code = [place], 1538) [address]: Strawhat Sizer/Techni daren ID = [id number] for Biju Navas CALCIUM, [id number] 05:30:33 Test Item Value Reference Range Interpretation Comments CALCIUM IONIZED (BEAKER) (test 1.06 mmol/L 1.12-1.27 L code = 698) PH, BLOOD (BEAKER) (test code = 7.40 1810) COMPREHENSIVE METABOLIC [id number] 05:30:14 Test Item Value Reference Range Interpretation Comments TOTAL PROTEIN 4.8 gm/dL 6.0-8.3 L (BEAKER) (test code = 770) ALBUMIN (BEAKER) 2.4 g/dL 3.5-5.0 L (test code = 1145) ALKALINE 182 U/L 40-150 H PHOSPHATASE (BEAKER) (test code = 346) BILIRUBIN TOTAL 3.6 mg/dL 0.2-1.2 H (BEAKER) (test code = 377) SODIUM (BEAKER) 136 meq/L 136-145 (test code = 381) POTASSIUM (BEAKER) 3.3 meq/L 3.5-5.1 L (test code = 379) CHLORIDE (BEAKER) 101 meq/L 98-107 (test code = 382) CO2 (BEAKER) (test 25 meq/L 22-29 code = 355) BLOOD UREA 26 mg/dL 7-21 H NITROGEN (BEAKER) (test code = 354) CREATININE 3.47 mg/dL 0.57-1.25 H (BEAKER) (test code = 358) GLUCOSE RANDOM 122 mg/dL 70-105 H (BEAKER) (test code = 652) CALCIUM (BEAKER) 7.9 mg/dL 8.4-10.2 L (test code = 697) AST (SGOT) 10 U/L 5-34 (BEAKER) (test code = 353) ALT (SGPT) 32 U/L 6-55 (BEAKER) (test code = 347) EGFR (BEAKER) 15 Interpretatio n of eGFR (test code = 1092) mL/min/1.[address] age Description sq m Result G1 Stephanie l or high >=90 G2 Mildly decreased 60-89 G3a Mildl y to moderately 45-5 9 G3b Moderately to s everely 30-44 G4 Severl y decreased 15-29 G5 Kidney failure <15Reported eGF R is based on the CKD-EPI 2020 equation that d oes not use a race coefficientEsti mated GFR is not as accur ate as Creatinine Regina fara in predicting glom erular filtration rate . Estimated GFR is not appl icable for dialysis patien ts Strawhat Sizer ID - MARCY CASTROpecimen slightly ictericHEPATIC FUNCTION [id number] 05:25:43 Test Item Value Reference Range Interpretation Comments TOTAL PROTEIN (BEAKER) (test code = 4.8 gm/dL 6.0-8.3 L 770) ALBUMIN (BEAKER) (test code = 1145) 2.4 g/dL 3.5-5.0 L BILIRUBIN TOTAL (BEAKER) (test code 3.6 mg/dL 0.2-1.2 H = 377) BILIRUBIN DIRECT (BEAKER) (test 2.7 mg/dL 0.1-0.5 H code = 706) ALKALINE PHOSPHATASE (BEAKER) (test 182 U/L 40-150 H code = 346) AST (SGOT) (BEAKER) (test code = 10 U/L 5-34 353) ALT (SGPT) (BEAKER) (test code = 32 U/L 6-55 347) Strawhat Sizer ID - MARCY LSpecimen slightly [id number] 05:25:42 Test Item Value Reference Range Interpretation Comments PHOSPHORUS (BEAKER) (test code = 3.2 mg/dL 2.3-4.7 604) Strawhat Sizer ID - MARCY [id number] 05:25:41 Test Item Value Reference Range Interpretation Comments MAGNESIUM (BEAKER) (test code = 1.9 mg/dL 1.6-2.6 627) Strawhat Sizer ID - PIAYA LPROTHROMBIN [id number] 05:08:31 Test Item Value Reference Range Interpretation Comments PROTIME (BUDDY) 16.2 seconds 11.9-14.2 H (test code = 759) INR (BUDDY) (test 1.39 See_Comment [Automat ed message] code = 370) The system Vamo generated this result transmitted ref erence range: <=5.90. The reference range was not used to int erpret this result as normal/abnormal . RECOMMENDED COUMADIN/WARFARIN INR THERAPY RANGESSTANDARD DOSE: 2.0 - 3.0 Includes: PROPHYLAXIS for venous thrombosis, systemic embolization; TREATMENT for venous thrombosis and/or pulmonary embolus.HIGH RISK: Target INR is 2.5-3.5 for patients with mechanical heart valves.POCT-GLUCOSE [id number] 23:13:30 Test Item Value Reference Range Interpretation Comments POC-GLUCOSE METER 148 mg/dL 70-110 H : TESTED A T [facility] 6720 (BUDDY) (test code = [facility], 1538) [address]: Strawhat Sizer/Techni daren ID = [id number] for Pedro Garcia POCT-GLUCOSE [id number] 16:42:14 Test Item Value Reference Range Interpretation Comments POC-GLUCOSE METER 140 mg/dL 70-110 H : TESTED A T [facility] 6720 (BUDDY) (test code = [facility], 1538) [id number]: Strawhat Sizer/Techni daren ID = [id number] for LO ALTON, KAYLIE Tissue [id number] 16:16:21 Test Item Value Reference Range Interpretation Comments Case Report (test code Surgical Pathology = 104) Report Case: [id number] Authorizing Provider: Dino Spence Jr., MD Collected: 05/16/2022 10:25 AM Ordering Location: [facility] Received: 05/16/2022 02:48 PM PERIOPERATIVE SERVICES Pathologist: Estrellita Meehan MD Specimens: A) - Liver, NUNAKAUYARMIUT LIVER AND GALLBLADDER B) - Gallbladder, Donor Gallbladder DIAGNOSIS (test code = u0vqcYZdLKCyr3kyCWVxwMX 3220) uZzEwMzNcZnRuYmpcdWMxIH tccnRmMVxlcGljOTYwMlxhb eZkVRQjoJHhA6MydoctZPcq YP4uBJ3avUsjiHXlnRPcPDG iTuFmt6vwc887eOZgd8gyKH STgbcpyVr8aDjzH68xa6U8N dscF69krSRuKKX4SJHoJZVt xKOvJJRkJVQ0PUEgbBOqS9i wQJCdEV6ujqzxRNmwYWdfVZ JneCT1DGJxbWCvW8LjIPWfD JhbPIDllvt9QwEcKr7ioQIn eTcyMFxwYXJkXHBsYWluXGZ jMmTmLR2dVZpZUKOsBO8FNI dBTExCTEFEREVSLCBIRVBBV LMJTR9ACDErUTwVAIGIYDoa EQ0ARUYWW0vVK8wJVZHXUG0 INZamzDKhQX0RKMNOPB8YKC MgKFNUQUdFIDQpLCBNSUNST 95MBHHJZAHdM06ZB8pTJJZE GILOEXWFOFFYIY7BM1dXJS6 YTNNVZMRHC9oTQRJYYBIQZ8 maSMBcgVTvHT4WGIxZLAhIM BBXQ6UdOIlRVCuCF8zREH5B GP1WUDzLCjKWZ2vllSEbGO4 OPIPRNbjMYBTRB2kBO8uVAD nFEJKlO6nYYQPSWB5NDQnTC MgRJAKJI6gvROLoOZ0GRzyZ NdLjHLCZGWKFVZJxE4CuBPe XNWeIT3hTUL5ZHSKIAmOISy 9NQVxwYXJccGFyIEIuIEdBT ZlHXBCMJXBOUNwWK54KCqns SIBTT9wIN9pLFMQCMY7RKTw zbCbcZTLeI5bVO38RBgFKNT 8VYQFVR8IUACeZACCimx95M ZP4FrBsu1N8PAL2RJIlOEXq w8qtWXSrfDJeQvBbNzMvYhA hFosrbCOkSDLjZvQnq4xdw8 39rGPls6mcEJPdCrC9xKKpY JDhjSKpM089XHRhOAgwp7qt h1GqTDYzdCIkt0K8RHCLxcp bkPi9nZrnE34ax4S0GjalF7 irXIXeBDMeY8IgJX9cMDShM wp9TWL5UPN4LIBkKNDzE4Ns VV6iYBYvjJUwLRd0k8cglXv nAVGqVFO2i6bmTFowkfCrUR 6kez9bvTj2e8kzfuQjMQHaM FHgjNJTYERuN1EfxUvtDw8p jYc6uUswHzchMLE8Rvp0TT1 ffd67zsv5kInjPSWmwgbrBm G1VUxaTCCiwejaCOx9LRcqU VDfbZB1XDGnzGCqK6UxPEVb CW2xgsc7CJK7XBavTFReTtE 1CGWotSDhFJFuyEzgVTljv6 08ZZR1KwJzPQ1pN3Fze4C6x Y5nxASrNLLgyNUbSuBaTHKd dl6abJYmKFosx6JcYTM5zhQ 9zBHatJMtAOOsAuS3EMeoFR 9daq15TBSkDKA1bm4bmMKsw RbdoaDgcNPvAHfkK7NrJDOg g622XWNiR5MzSDDxu2J7gdM nIuQaIDTjlAE5bcH8JFHgZY 1kgvqed2nlZAfeFRxyFNQqp rL0unJ3ITAdmSSvT5NqpE2l YXUnCU4herccy3wnSBL6MZh aRTLeOOS0YxZbDIMwo3Rkkj c4McZkc7IdgMFbVWgkI55tw 339HFTyzuUhP4mnsYJuwcov lCEpfusoOXagbdJ0DZPxBMt vlpjrNHXcAOuxU9jmQbDsDG YuqTtgNOxxh9DjNJArPRLoG cRowLBjDDDpNty5DAOvkDNo NASyYnJjO2yyflbvItCBHTI bb2sgN9gvfPCElXLcD5XdOG tjiyFiQQipZEaeQRVxXGB3F V63DqbxFKPtnx95 CPT Code(s) (test code l3ujhSZuXOCooXP1RtDgVMF = 3357) bk9rfh7CohWToaYBtNJzevM XdyaQbgd91uWC3bH99BN4qZ KRfSuV8FFAdljZ1Xvf1OEKd TYImsEQvF941n1rfe5lnfkU xmDY6bSwyKFLeciioZhG3MX glLJOxzzqyAAa9KElwIULdw EE0ITWkxJClR1NwRXFgOA0q wtx4XAV4DQdcXTRbBxF0DFM soFMpLLXmsAgkZZztr022UF F2ObDtYHWslvChjVhouQ6xZ lTeVWW0TFNsNtL3OSwyRRDp ODgzMTMgeDRccGFyfQ== GROSS DESCRIPTION k4ebvVOgBZBpbFPOXYPmG9h (test code = xjdHiVRWqwQJeW2ZscqalLH [id number]) egUG9gPY0vsTiwrRTfqLVdX Z1HYEEjToDxOEIbkKLvxjNc YnBhIBZkcBKhiIZ2ZGTgZY5 mvfqhSKcuCWrcBFYeayE1SC TjcCXyZ1DdRHUoJM6vmpxoP WW4KWnzwN8qhgOBQsjaGf1r dHRibHtcZjFcZmNoYXJzZXQ fZRVwwIzuVCZqEWe6fO3ODq vqKVH8YMLUAyjjDKGmPU4Bm 9pxAXVeeOVvGBL1TYfuhQAc DJPkCMYqUZc5NEDzQPhnzON tMH1xhQnrVneigGuri5MakK BcXGlkIDUxMDAyIFxcZGIgI M8JUaBnTKOgVEv4RXpeIKy7 IHi7DQ2BEpOpSQTgGGE7Dtz aKlNuRLd1UIxkUX7YEIN2Ky c9RVNvBQK3GZDlOyBxYRNuY iBcXGYgQXJpYWwgXFxmbCBc ZZ0ykNunhJOixwINRqVHiXP fpv7eeUQcLZ5HZRJcfHPRFK B0DH0uZGXLQdgpcGUgIATay NabGXfyoD7cEO5BEDi2suJg TOJaXhIxLbEaMPm4KRAxvG3 mLy2efAIiqC4mZS7cLGcbYr MyTRAml6c1lEN8dCQqqEG9w RYufFKykjSalw9fuBgwhkLj yUn4FFOaKVghVFQncPNpw5C tQK3hAXFpzCi5MKCrq2QdI9 hpbmcgMTExNCBnIGFuZCBtZ WFzdXJpbmcgMjMgeCAxNyB4 IDEwIGNtLiAgQWxzbyBzZWV yDFI7zHQnqEBsDBjjRQGdL4 IcaOQaOFYdPMWwpJVmb0Gxi K4yWOQpwSEhUOqrOgNhxW7n oOtrNGIRjFZldj6wyLy6UBB oZSBsaXZlciBhcHBlYXJzIG 07lVOhun5clSyyveA6uBFjM ICbkyrrbxrmq4i9PYPlt1E7 jPDkNVXnHMNbbgMhxcL1jaJ utLIpirPadpFxq5ggps6xfW DmNX2BHBTcpdJFUlKvP6Fkx mVkIGZyZXNoLCBsYWJlbGVk IHdpdGggdGhlIHBhdGllbnQ jxfSdQR5zMUJBZo6qXU6eSM drUiTtVEZpFkpnzwCtMXZ9L jIxIFwnOTQgaXMgYSAxMTAx SVzbRK5uCQIzGCtmQAqwlWE xMCBjbSBsaXZlciBleHBsYW 51VvUFlUBfIBS9GURyYCKlO 8RfjGLfVIZgVFNwpZDyHqU6 IDMgeCAzIGNtLlxwYXIgDQp ecSGyVI3EOVjvPNMgvDS7pT XunJYmY4FbUC9bkS8cNtcmG 4dklO7rI67jn8ChXO3iHQTc j3TySUzqIS79cGQgbQksPNI hssjecunjw4x0ZVFnzo3ubE drgbV7rYReqQols4B4YVawq BzcKgkhye93fbMkSHH2ASCi BCFDyqScNOWwfae8ZREmJVX nx09pZRDgASPgAUOvcTpsnZ TsZYtpg3FtvKpoSFYcGEIik XZlciBpcyBzZXJpYWxseSBz ZZV0mI2oJNBuiT0fdpA9XOD sIGdyZWVuaXNoLXllbGxvdy Fuf79lE5Ihs3KmDSYnyhvcK ezpcEQrDYJxcvGoxY4nITyv vVimQmtuxg54shYbLID1GBF cDNLPtwUeNKQom26hNPQdZJ QhQMRnuJcwzIDtZD9aCEL8l NCoeDBeSZMbWmRIqK5uoMVy i0NdpjKtnjJfdb27NTdcMW8 5qSUpDKAotC7ayMdcBIormE LxGdrzHSJoPAytrHHnHG3IQ GhlIGdhbGxibGFkZGVyIHNl pl4zNBGcbiV5lzJwfTVyb6E rvPAvQBNoT4pfsMqnLPV5J7 FytTcimWlhcv1tREOlpaKzf 3KbqIBdg0BvsW5eKQbxGWjj hLyvuQCiOFFxDDczDK2zFP4 zBWX0vhPqLGWxNTjoZMUnvF 9okBUyr9BbsyDsxCZln6Ypr F7vUGHyWBJzyUVualOhueFv gUYpfYRdpS1cseWyl08tSE4 oZABfSTTjQHuqOGSisC2yUt PEvVShhOEor9PxJVkdKQhoC WVuaXNoIHZlbHZldHkuIFRo DKO6WVnpGRRboHHymdBphsJ aglEjIfSiF36pAJ2qDKhvj3 GcWJksh5adopSkNSMjGZyoX DPaABEiUYdwIlozZVBnes0v ApOzyxRxNK89PUBolqFqt9W wvTxgtcMaRLQxDZV2Nf1umD FbNR5duYJaYZ8TWUVpvfJPR sWsV4Upg68sH20sDRfanJJj BH7GJPN6GSHinBNySFRigWU sdbNdnrWnM4DpOVWsbJGyT0 gvsafmDH8dRbZyOTcuRCFjR PfQTauhS3EpdXRirZOFMRDr vtGXCyCuJeLSJWviYW26PMx DVYQeisNLOeI4UxLFHYbaVP 50IElJSVxwYXIgDQpBNTogU 6MujFLhjFF2UNRatyZyHJUv mTVqPO2SSWK8IDRyD90mymZ oUVcjFIOlPRpGBbztQ9FdhO WsfVX7MSBrwwFUVgR0UfNPM LoqUZ20SOwapWRlMC2HEIr8 CWLuX55oqgXxQBhpCXCnUMp RIJZ8APhrwGoueHRgLQDiwO FzHS2UNK6DBNWiYYvvETZck MDHVHE9YR5sGXctlMPrvfyf ETEmW5GuL0JeicBmkFZhQNG tmkBmj6zxAPQ4PHYnxDYepG VzLpEuMqrbVMD1TAy5LRnvY WBnF9MhH5RnKTopTCS7ARIb MiBcXGRiICBPVlIgIiAzMDA 1JDg1HcQ9XMj2QZPXRnGxZz KwTgt9IPAhWgMmBOc6UTz7W HaJBgF6BLf6ZpQ9DfXxNULy KQiqJOr8UVMwSGekVQQjgNF cCQmkYxpdGStcR88tJpNmPw xwbGFpbiBCLiBHYWxsYmxhZ JLjbf2sdQOdSN0TCAPwxVHY HWS5AG5dJNFVBqnjmPAxZLG cdBozXGpxhZ8kDE2LYXv3jg WpZLPnSdZgHvGrGDe8YLNwg T5dFl7goGRvjH9aHB2eMFub IrCnHULdf9b7mLP2eNZqkIC 8uEKybKXekfIuln0jzWjbdg IvD6XpuURzKHXtJLFrGDxmJ MMtwLWgz3XsTL1pVCVkY3Pl bTXvZAIuOYWyxDKoe8AexH7 nIDEwLjUgeCAzIHggMiBjbS 4gIFRoZSBnYWxsYmxhZGRlc tKptU53mfQzNULwgfSpgzD9 sF9sDT2rPETyWJUmbHEcdh5 srHXpn2CfG8BxaGZwe8CbbK 5rRKOeMEF7XUCsDKIevICit dMevJAzZr9bBCDpRJR5PEao KrZylYL2mBTwC8zceTuwDMT 1K7RmbAItL3wtKbWnU37hY0 N8kLcxLnEotOTdQCA1wFSqG 1UrfDHqCPBfAOEoaUSgm5Av DSxyDSDxRJZqs7hhF3EhFG1 yOG8uGOUgkPEjrUsioy1in0 RvbmUgaXMgaWRlbnRpZmllZ O6jIMHoRTAbDDrcNewyAXAu sbF0XLkvXJLryCWsddYifmG fdeCvAfGqP75vBWGNRRTzRF MxbnWyzBa3BNNeZIL4lE7ny zBfzeHcc7JknHe3kFQeYMbg FEOxg5RamYIcoeCKSORojuG gDhFwc1y7pUJ4wJHjS9gnmS wrHOH2D4IvgDEdC2imNMV7L k9ooXYuXYTpelDiYXXsZKsx AGOoBanfdJ4bNDbvaG4nHF3 YPRhplKhinF6pTQYmC97az8 DTk9EaDVUoJOwdh8nrdKjtv 2VjdGVuZFxwYXJccGFyZFxz xJ9nPsJsi9xliKq6ZZmahsC 5FKZomx3RYfyocG2aHpJxd8 rcaMm6QCBQWajviuY1y0wlr Oomc2NjiSUeLX2BCz3= MICROSCOPIC j0xsnUMmQWXcvVY5LaJyOSS DESCRIPTION (test code rv3dmo3AraTUriDDaKVzpgQ = 3371) JpjrTzex06tQX7rB58UJ4mX GZlGgS1SITkfyF0Epe9GKUj FVDipUIdI059h8zxp7lfhyK inVW0tBmrMMGhtkduNhW8PL ycNMEvnkpwWBl0ZWolRGDlg UW3HFPrfMUiE7JpDPRxFC2x lxr7IDU2SUcsJNVuEmU5PIQ mrYDcNHZaaAboSNgmz744HE B3OtZgRKYydtIvwZlogQ4lF bLjNVYYlEXldMDhFBCrg7G0 rADxo91spD8hQKYekIw3WQZ 1fAWiJA6lYQMuBAVzyuMipy SkdSf9MLIcCDTxtWLukG9pW HLgMoWbhVDyh8EmrCAmyNri bTngC1a6ROXaLaowFIIeV3q pl70wBRRaILMCBGPlI5EzuZ 3wMCWgyZ9qMBPaeRIqYG5hx ZzuQZzoiu4mkJvdqfWsJhNp ZWdlbmVyYXRpbmcgaGVwYXR jL6y1FRKhRS7uIPYjWQNtXW 2xE0Nlr8QfFRLwm8vtPGGkl fFuoEBchXVlQYjxr85jcV8d QMXke5MyywY8WBRoz4H1aSV lSFcoUqqqmW2wnEcfaqR8sM UhCBQ1X9B8uMWeQSGhYKH5t N4fAKRmHRCiWPLoTEKkkR75 cmFoZXBhdGljIGFuZCBpbnR zWQBgwlMyuFC1hBYcCWPbk6 vna8Ngj9iqZpFpUIHDCMKbf FVjabIvccSfRNxvtYx5DXDv p5ElLFoiuLGnGNZoltLowOQ 4mQDtxlXexG1kkDczrb6fIQ nvv96nn7HjfI2ajNAhruOzY YCvfcGkJs7eIRfkB2CeWMXz TGAsfe2eTQYvszocUXP3 SPECIAL STUDIES (test k6ebdYKfXKKfe4qkWWYfnUZ code = 3370) uZzEwMzNcZnRuYmpcdWMxIH gurcTrNSxaj2ZsX8HrVsSqD FxhbnNpXGRlZmxhbmcxMDMz QKR7hyPcAVPlOQjaBQCvRZb uJb7vbAQdjSceEiSvDAZdj9 miaaHHyfjnrXv2g0xuMINgY oK2qGGyWNvuW0jixfLdsDGo G6HfwIRxgMv6y0ygOqPlDgA 7cBTaTTjcF5jtesUdpMWoYZ TaGGk8kB49EQHzzQ7dlGBbI PjzjdOpBsK4IGzaJTMiKrD2 CKLguPSrFHFoU2hoAUIfIJx lQHUzCLwcyCQlKJT6yFyaf0 I5wPRlqQQgcQnqDaHbQxWtH yBBv1ZsVEb5hWavM6NsAJPj VqK8kWNxHUPdFUqtGZUoVDG focD2nZnupbImp30znVDpKX YwXGZzMjBcbGkwXHJpMCBDb 4FzzWgeNWQ3pSr1vEopRjhs YVL8Wao1EZ8tpu65iww8xYj bYXEraaxbYxC6MFfyFAZyle weUWj0FAagACNgfHO6KISdm ZDfL7VyJLDiQH2igui8PBC8 CCuiMXCeQyI2GPYjeFPzTAO vxVecWTffh593BVU7ZkYtZT 6eX6Ajg1B4wP6hzBRmYTZnz QZvGnJuYSKhxh8aqEYtRLfn c9ZaRHY7dzV2lVJfoQUnXAI rKR35Mqtck3KjCqwdp6GbR4 4mzZE8QPhcl9kbGV2aStQ1y kKpCXkss4uzsY5cJbA7VSxi JF2aOT0bNJAjjT9bkzwuKOC nYnJkcmhlYWRccGdicmRyZm 7woBwvDCX3YOxbU8qhqV3xD bL6XZqjV0bdvL6bJLs7JRzk qKG2UPFgwS0tVT1ndfjrh1e mVOjaXWtaDGCxcwX9aaD3EJ QijVEaO5BvrA0hLMPpER0ft qblf4ldGJL1KBdxBHXqFGB7 RvIqNTVef0Udpaf1JqSxm1Y rjKVuLDbdM67kj918RFRxay DnV8bgzPGsnxumcTFyfkhwK PkcpuV5QMZiFLTiQZtxNZTw XGZzMjJcbGFuZzEwMzNcaGl jaFxmMVxkYmNoXGYxXGxvY2 txZxGqR8PbKXBtOmNwYLsqL WfztNDjxGHqnRV6hW9uOT1p YBFstUUlH7ChFCYilrRibKT vYXG6vDAnfWFvAM8jHKhnbW Zte9ueh8FuG3uvnNhuxTX7E A1dWYHkPPSmCLkoc0KdoO8e LlxwbGFpblxmMVxmczIyXGx ohwlfDIDqUGdsD0bgRyVlTL JukSwdWHirf4EyYHCcCOClK unqfhXeMTl1seVkXSNdoprw EUOqsFrwfL5lNnWnEkEqBuu gOI6iIKBjQ1zqvBZeXZNxDM QcN6noBzFfaC1yfJxjWCwcD eAeHtSeQeEVe555dc8pSEKu bXLqycFNjRScoL0gYMvaXTe fZOcwuJCcGWare3zrEOGhr4 m8oKSmKHTsakKhk9gbRKhfp bTnDOFjrRDdtAIzQOElu75q CZiefErufDvpNRCpg7TkdUk qs5DyZpVtZOarz7ToS04tdI JvbCBzbGlkZXMgcnVuIGFsb 89rv2wyDIJcQkI0kHZvqPO4 yHRzhBZfv7IeuNrwVWVuz9s gTQDyxw7pdqysxQRuf2BxzT 5pbmcuIEludGVybmFsIHBvc 0g8nMAmWFRsCPMiUVqmhDa1 XXJac942uf9jweU9mWZmUCN 2YWlsYWJsZSBhcmUgZXZhbH VhdGVkXHBsYWluXGYxXGZzM jJcbGFuZzEwMzNcaGljaFxm CUnqNyUnYRZvHHqkH0lxNqC zK9DwKEScVeYgnYZoT7lcgT FyXHBsYWluXGYxXGZzMjJcb GFuZzEwMzNcaGljaFxmMVxk WeGwNPUvFUqoD1giKnGfJ4C yXGZzMjIgIFxwbGFpblxmMV xmczIyXGxhbmcxMDMzXGhpY 5dlSlZgACYvgQxvZByzd8Az SSPbPSFzVstzchRzBTw2chF oXHBhclxwbGFpblxmMVxmcz KiUBodikzrYDPuNWshF8yuJ jLrOYDizLzzKLvam4GjEJOi SIXrLnubmeIiNWoqeRYrm3g im3TpS8vehLbmnRW9JFDeO2 qbdADybPQ5SUS9qF9lBIdvg zMwLSBug4CuBEDpRUBsSmH4 iE9kNPQ2NsTInQzvZXGzFJi uXGYxXGZzMjJcbGFuZzEwMz NcaGljaFxmMVxkYmNoXGYxX PvkQ7rtWnJoN1MoYVWpSbTd lBnwWQlsNDg0ChxvhQOxfgb mMVxmczIyXGxhbmcxMDMzXG cgM3eoQwHfGMXajRplLKxwa 2NoXGYxXGNmMlxmczIyIHMg HXDbdOMabDUCIS93HUJjEIN skCxieS9piXTSQEPhmzM6j5 T5ZClmPHFaKJp7GIudavPtS LAgaX3fSBSgHW9tLWd7hoBu WOFbp7RyRH2bAATqzDJjRVH 8KZKlh6CmV3Ber1QdARIlYV Rxwe1gxiVsEaZNnTPvBNGrl p76AJZqKU3kW1egJPDsIKFl kfMinYJxm6NaUIXzuIF7vPX eUZ3SMjGKm99mITHpJOUKmi FkYODgzHeoeCJ9ykF5zJ0iL iBUaGUgRkRBIGhhcyBkZXRl zs9davMuHFHbYNRic2VlfLK dzAQzpnRaV3Lrj8MqYXVicf 53OFggkDUifh32VL1vR4Dpo 5GhzF0sIVdtZGSfm1CubPLb lMHmEPUbb8ShN1bmqmjfHYe hkSPecX4wSBHbAZj7ZSHmb3 MrZCIek2FiFnLsarFvXDSiX WNhITYwmJ66NHB6tIajcKqg phWiEP7zWUYldfHdAAGeXJW wxP3iWFygdjZlHKXczwC8l0 C4HQkkCDLjpaWaNapbRCK0y yCtrcD9gUQgC9xgvybaIXou OBVqv4JraK4cuRMGfTXxv8P diFUedTRSiOXzQR6jkvWvYO 9fTSR8AMshHOUGZKEtEZpwH WKnGLN0XWzeLchdTCC8veHr UDEbz7QqIExuL1rkW29omIw alCm9aASreRzmnVWrtSUdUN CmdsS4e4H7XNFrw4KythnsQ HBsYWluXGYyXGZzMjJcbGFu ZzEwMzNcaGljaFxmMlxkYmN bWURxSNjxR3rzNqMqEiRuKb zuQUA0eF== [facility] [id number] 16:16:21 Test Item Value Reference Range Interpretation Comments Case Report (test code Surgical Pathology = 104) Report Case: [id number] Authorizing Provider: Dino Spence Jr., MD Collected: 05/16/2022 10:25 AM Ordering Location: [facility] Received: 05/16/2022 02:48 PM PERIOPERATIVE SERVICES Pathologist: Estrellita Meehan MD Specimens: A) - Liver, NUNAKAUYARMIUT LIVER AND GALLBLADDER B) - Gallbladder, Donor Gallbladder DIAGNOSIS (test code = [id number] 3220) uZzEwMzNcZnRuYmpcdWMxIH tccnRmMVxlcGljOTYwMlxhb oFiSNMyiUOgI3RyozlwXHij XD3eAL4crPueaLQeqYQvDSO dQiCxo6kvq025pHNku5rzQB SBqczmnAk5qSmmZ07cu2J1F nlhM46myUQqXDP1AGIfRPTz pKDyDDMwHIP4PCAfzWEuS3q fBRVrEC1kutuuMVyiQKjfSW MadJU5BSOmeDVqS7WkGTWiY KzrUCCrvwz4EwKjHi8lsDUb eTcyMFxwYXJkXHBsYWluXGZ cHnAdBO8rMIcMXBNaLS7NES dBTExCTEFEREVSLCBIRVBBV OCXOZ1UINAiLXdKQKFSGKeq KY7SDXAJS2yVU3eLFSITYM9 AIKuoeCIpZO8REIJRQW1MZJ MgKFNUQUdFIDQpLCBNSUNST 47GHRVFMQCnR28GT2dUHZDW MHLPLLXTSJFCZV5ZS5xMGQ7 PPDFWBJEEO0fERXNMOQQZK1 iqKTKgeOBvNX7TJAgGJPnXP QEHV3CiHTcWGPqOQ3bAZJ6P DK9TYQjFQdMOJ0qyoMBfZU5 MTPVIVrjIXUELK7eDK8pQJY jJRJUjC8cKTLQOHI8DXUsPA ByUPQIBX1szIHVkYD8YNimW AhIkCXEBHYMOLLBiK4LpSGu DQDcRJ2vYNZ5MVQFHVqVHWs 9NQVxwYXJccGFyIEIuIEdBT YoXMERSKAPEJCxEY27FPode PYBQP3jTB5gETRUCUP0RRXz frVvfRXHrT2fGF52FBwRSGF 6UNMPUI8ARSSdYBREhuu01X VK7SfMlw4B2QOD2SXXuSFQw f1hoBAKjgNJvQwTzFaPbPkM tGzljfRGuWUSrCcBnm5vwt3 08cJPlf0sgZFHvNtO1qIMpP EDgtRIzV588EPJrSGcmh4ml v7ZxBNWlbMNsq5U5OVWCyrm cxWz0xAujA58dl5E2HdnpE9 gbGJHxTOAmH3EfSK0cPFJlC ka1DZE5ZJM4VVKjUNKjW6Vh TA5qUXVqxFSdJKg5n0pjrVk eGVNhXUY5u1gnODrtqkRtRS 6cyf9idSx2y4anobOkUEEiC IZqtGNFOWKqY7RblMcrSb8m lIw9zKcbCewqJKE5Etc5XV6 ybl49izn1jBmwTMRapzyoDd H7FMtoCZJjogbzCFi2IKayD VVhvOJ9GUFrnWYiL9HkYOZv DZ2dzsu6CBG2RMncINXrYvD 0PJTdrJIgBBCzhLetFUodq0 82DQH3QsZkAU7fI6Rwt7V3p I4elZVbTTCnsAZdHsDlTMJz ww1auKOsCGkwb0PcKMA3viQ 0dBTylRAoVKFlTbZ0LHhjPA 7dfq55XWGnSXE1rl6vfYFlj HrytbNheNWkOOmuR7EnKUDe p568GAOcE1SdOMFfr9Z2zrU yFdXxHJCceCL3uiE0JEPhJK 4skzuth4rvJCsvCHkzZJIhk eZ9gbL3UAYtqRXxJ6GqdO5j GEPdFT4ascihl0qeNMK8PTw tUVGiDBH7MzEbXQRtn3Mwmx u0DtCgc3LhnCXwKRxkK03zx 951PDHtnwSmF2azrTZdtgqy hBZlfrtmONddlzY6PUEyLPa gqbuhLNCxLSqxX9bvTdLcWX WulLgkNCzow6VdQIVtFFPfX kDgxUPaCBFlUfb6JNHltEGz IYXdPmXiE3zamczfVkVESQW rl7cbE2utmJFGtWPxE5HcFN ohhqMdIGgsMFncARMwJSY0E M69AwzkONZhir85 CPT Code(s) (test code c3ttjAEzOWXlnQA0EiNmTML = 3357) jh0zzf5PfzFEnbVWeYLefkM WsojFygf48pXF9fD58VK0oE OAtSyF4ZYCqmdJ1Jjq8SSAo SFIhkSQmI151a6skv8wfvxL wtDU1hWhzUBZbmztdZcG6MP luEZJjxvigIHq6JXeuKVPjb HM9SMQttWKeH5PcKAJrCU8x sti8WRW8CRryCYWsGrF0QWA naRSsXYEagZguCGahq422XQ G7YtUdHWDwdkYjsDpmlR1rE bEnATB1OTPsEaC6SMehLFZv ODgzMTMgeDRccGFyfQ== GROSS DESCRIPTION e1irsPUhPDUusSEPLFBeX7k (test code = nmdPpMVChaFJtB7MsajbgBO [id number]) xhXV6aIU8hfFjonPSncLAcH O1KNLOvRuGmGEWjuXEpekAy RbXnGSHdiVNloHG4XQVyZW8 ghkyfAUygXZvuINRklbD7GQ UbkWAbQ3AbPWBpRZ2poqteZ KY4PWmaxT4gvlUADhqoDb0t dHRibHtcZjFcZmNoYXJzZXQ zNNRqmCruSWQnZJm0gD0HLp ixSVM8SXLDLeesTJYoVY1Wy 9nuGKFaoMUxUXT0OOufwOEi VGAqCNLzZFo6TSEeWVmvyEW dOT0uyIcmJnkcwAjxg5JslN BcXGlkIDUxMDAyIFxcZGIgI G8RUjAzKFSlWGh9LUieQHm1 XXq7CN1DInGvQOXjVGS1Jnt lSoQeHNz1ZJzkNF4KIIU8Sj h7ZVPbIIN5PZZiOrWwLRZzP iBcXGYgQXJpYWwgXFxmbCBc NH4qkQlydKYfrvXANcIUnBD szm1kcQZbQS4SDKYvbWLPUY D5YA9xYNZYLpcubPOnGDTpf AkjVAsssN4nEZ1GYPg1naEk SDPuUqAmFeBaFDq4XREchN7 hGh2aoLXgvL8zBR6zSQfsNr MpMZCkr0q9oOG1mFIrkII5h HOdvUUlcxOuyk6bbIjqnsFh qBp8LQLeUIniLYGvrUPmn6L iCT2bQUSsjAo5HCYhi6QoZ1 hpbmcgMTExNCBnIGFuZCBtZ WFzdXJpbmcgMjMgeCAxNyB4 IDEwIGNtLiAgQWxzbyBzZWV oVKZ8kGYlrIZkDCgbSFXbW8 BikZDeWRWtDLVppDCfz4Luf X4tZUCqaSXsFIqbUgAbqU6b yVjlIFGKmIUcfy1wxPi9ZYC oZSBsaXZlciBhcHBlYXJzIG 70gQFjoo2mvLthbkD7fUYbC WGfmeestovyl2t8VROkg4V1 oFQmJZJhWNBkobUbhjL3puY vhPKjqlYeaoTim4zawd2rcB KuXX1UVTPgwsFIReRgW8Pmu mVkIGZyZXNoLCBsYWJlbGVk IHdpdGggdGhlIHBhdGllbnQ debJcHP7kXQUZWn7yAZ8aQG kcEoFbBXLrJjfyaqArRZF9A jIxIFwnOTQgaXMgYSAxMTAx LBspCO1kNQVsAXqyBJweyDT xMCBjbSBsaXZlciBleHBsYW 44LgQUqZAiMQO1LXYoNMDaV 4SokIDaSFZeJOEbpVXjXyP9 IDMgeCAzIGNtLlxwYXIgDQp qlWRsUQ7LUJufMBDhnFI8hY FgrOIgD9EqPY8spV0bHgnmP 7vktM0gL38qe7JuWL5uVFAy t4RlUPpjSI48aILbwVqoJQC bdhmxtfgdt1x0YPMeuj4bxX bibcH4cTIbqGhun7K4UUrsu OqkGnugbs53lvMaERU8HDOw BUPQjjShZJJfvzw6DUIfPEE od43sAWTcQGPzICVaaCiqkE MdGSopt5UpaYqcALPeTGBgt XZlciBpcyBzZXJpYWxseSBz BMT1kM6wRDIaaH2jyqG0REU sIGdyZWVuaXNoLXllbGxvdy Eob01mC1Cvl8WyCDOqkhhrX zyhcGKeHPXvqsXovG1oTGlg tZtuLhvvjm98lmKsPBM0VDS tJZBWqoScNSMag20sIHEsGE MdVIKsrZdvkZFuIJ6wLMB8b UOmcUHgOWRgEaIArM6swOSd g5FqngTvcaOzen00SSkyXH8 6uSVfEGIbwK3ngPbhQKukkP VlMbcsAZPhDXrfaBOzJE5WM GhlIGdhbGxibGFkZGVyIHNl ip4fYALtypY3ycZbmCUwx8B vcZYjMIFmW6naePrkONS2C3 WoxTvjxUnjaa7aZNUjznGcr 8DavZTrg7UghM4bECqlOMnc cCzjgMEfQTRmIBxtBS3qII7 bCGH4yqHvEWCoCMhnNQVtpS 7waWEjw6PxjrTadFRob5Xsw H0fMUEeTPDisCTrjrMhzdFw wHMvxBFufX6dfrAen58bYZ5 rIPKsCNFbBHldRTNmdS0kOs DQgMZbvORej0MlVMopVFzgI WVuaXNoIHZlbHZldHkuIFRo ILO5OSouIDCuvBGscbQihyB hgiWgHeWfV74cTY8jBXucj9 TlMTsrc5udqrZtRUNcLXlgJ BNjWLXpIHgsJrzbRPBtir9s AaKobuZpJB24CUMpfcDcq9S cdBeukuOpQFOdWBV2Ve3qkN IfAL2cpSJeMR7EVEWmjdEEF qObO0Tai46qQ68gSSjeyZZv WW7PJLU8JZHueDHlWTNumXS ohkHajmJfF7GlLOHgnQHhW0 ndmrsaNJ7kFeTxZWwyIODaF PhKRonyP9QozWDdtRPREVAj klNTSzBvOsJVQHpkVF97JIw NJNQesxOOHfH5QyHPPEjhGN 50IElJSVxwYXIgDQpBNTogU 4JcqBMhwBG9FJLnpqFeCPKy iVUtPQ4JBDU7ZMDtZ14kfiT pIGgvUZIhAMvJQvniV0QfrQ OqfUP9PVNlllFJAiU4VxZQJ TbfVG18PPjrpVXwQQ5HOLr4 KVHlE61nmwHdMOopZVJpVDq JHOS7NImlsUyzjEEfADPrfX TdGU1AIA5IOREyKUflMQCyi KIBJNR5ZM2vXAurlFGkejvi OLUiN8DmC2DltcBuhWYnCMJ vogEef9jvDLX3ACTggRUhkU JdTbMuJzgfERE4RAl2TLlbY CAaI4BzZ3YhMVtfPZC6HGRy MiBcXGRiICBPVlIgIiAzMDA 5KWs0WzL3OPw6OLJAZkRhZb TvXkw5HUJyPwZkBRc7UEc7Z MkCEaI9KQy3RvN3LhYzNKUk YCpfSAt6QQRyQEplCCEmpFM gOMasAosqDRmvW04dSzAcMk xwbGFpbiBCLiBHYWxsYmxhZ BUzcq8hmVTiHR0PSFQkqWJY UJO8NQ6vMVCTTkptjGBsQNE yjDmrYXeixE2tML4ARLm8js JoZJDvTnQaDjIoLPh6DKLzr F8aPu2nmYWvuK3hKO4qJOgf YkPnHTOtu6e8dRF1sAMexLL 4yAZivEKxpfBaes2ubUddaz PlV7YkjBIeZBXtEXPtQJyoO OEufXRyx8BsVQ3yZTEvP1Hu eMZrUWGwEWRhxFTik2SsgD3 nIDEwLjUgeCAzIHggMiBjbS 4gIFRoZSBnYWxsYmxhZGRlc fXkxE74ckClCDDyqnCbspO6 lP8rFG4qISGqOTVmxGYzzi0 taPUqq2KsW5YuqAHth2DwbE 6lQWKtQFA6RWHsFLOqaGFrj hPezNVnRe5rYVSuVZB9LVhi QiBgvPE8dPBaI7dlqOxkTFO 6D2HazPIwL7lqFkBdP88dM9 F1aOwuYkSoaMOlYXP6nNUrY 4QswNSqREUiRYWouPUoa2Re ZTvsKMFwENNet9adO6UfBS8 sPK8vYRLagLDqaFiywb4py7 RvbmUgaXMgaWRlbnRpZmllZ L2dRUKxZDHfJTkfYumnLKLx mkS6VPobIXBnbNVmewBrwxJ qseKeEyToN81xJXYOVTMdVD EgwkGzaEg1OCGaNCW0kD6jh dNmnvZqq6PauGb3oOSmFCck BAIyr1YtkRKqjgCPLLCphjC xOfSxb7l4xNI3mSHlK7dsxF fkSMS6V2FvgPVqM7hyFEO2Q b7wxBElPQIktoApASUjWIlb EMWeCzmzrV9aDCozlP7sTU9 WHSshqOnqkU5oCPJjB13mw6 LYf8ZjVFTcIFcoj6gdbPgpn 2VjdGVuZFxwYXJccGFyZFxz sV2gAwUfj4vkcWp1PTjvifG 7NMQttx3CUjveaN8jSoOtb8 ubkJa7JLUWOptrqhL1l8ojb Vozt9JsoJJqIL1RYz5= MICROSCOPIC z2gogSKoZZNxkJK5ZsSfFOF DESCRIPTION (test code dq7xvy3MnoQAkgRCrCNlcoY = 3371) AgklNxvk07kTV6hV10CY3kY TQeKrU0UTZvsmX4Tzk2OBZi XGSnkCNvU470c1gvq6ercaX ojJM3dOycFBHddheeEhW5YH qiWOPnakrhCLq4EGvsNOAux FT5UFPnxVBdE3JiJOMpQK1k fqe1ADA1VBvtAORhRbC3VUX rvFHoLVOwlQzjKEgfw874RP D5IcIiUOSfdiQuxCuhbR4eR kQlYTEWxPJdoRMbCJKzt7S9 nOOnj93tdH3vHAQgzOb7MKM 9eJHoAL3bJZIwUDBcvyXxbd UfvEz8IXJaGMEryJNiwR4fY LBrIoAldNAeh7ExmDTkjFhx bTzgO5w8SZPaCxweUYDnN7b bi02hSYZmDVPFYTYgJ7FzaS 9zIQAwaC7tADGduCVnKN5wb DauSXwyir3kzIlnnmBpAkQz ZWdlbmVyYXRpbmcgaGVwYXR bK3d6SUZkWR3xPOHkWIZvQR 0mY1Sco9NjHZVfp2ibTIMnh iTwdUInpVXbGPabn56nzM0y BLFzs7YtqlG2KYEnf7W2kKY hLKoyXkibaS7neOikhhP5aH LaYDC8U6W1nBPmCVWjTWU7i N5kXTDhMZQpFNPjNMSvfH55 cmFoZXBhdGljIGFuZCBpbnR bTFMwipDrvDM4oKQfOKNis1 jel1Sdq3juWyMwAYIWVPRoh AVhrrZlxnFxFUccvBy6XWJt v0JkEZwnsKUrXCItzrXvuVD 0vKQwarPecG5rvOcbye2bCN ugv50ej4HtoZ7ocLIfnaKtL ZCizuWnQx9hAJtoH0WlZYVy SZTwvj1zMVTjxyioQCQ9 SPECIAL STUDIES (test q6eyvMSePWFyu9wmLAAzsHJ code = 3373) uZzEwMzNcZnRuYmpcdWMxIH fvguCeQMdfi2IpY9YvJsBrL FxhbnNpXGRlZmxhbmcxMDMz CTG7oiYxGJMuZGbdUVJhETm iOu3mwIVprPapTzCnTDMoz4 oclcHHvhjteAi4y5zxGSXyN eU8iIQdLYhhO3txiuKncHNb U4GokHPfuBs4s3aqSmIyJmW 9bGJiGWapV6tvpoDguZTsXR JpEGx2bC73MTRozZ5wjIFyS EfwkvNuOlD0IWbaRTTbKjX5 SIMgiIOpKTSiZ5euUUCdXHu yFVKwBYetgLBnJJW6uWdie5 A3gWUtmEZrhRzlQcQxAfCiF jIBw0PcQQu7hJrwJ3RfXIZm AhS5wFPwMMReVYsyVPZwGLS yfyR1lRcsvfHiv58xdHCfPJ YwXGZzMjBcbGkwXHJpMCBDb 4CzwQnxSWQ0dRd5kMkgVmxj XJK5Gnk1GB7jiw75cyw6aId hYAVobqvsKiX4IOzhYWWvin nqWXc0QEpoIWKxoNR0BKIkw QGsD1MaYUPgQM0owag9MVF6 GAslOHHzPxC6NRLswOMjPOE llYxtWJfpg734KFD8CvRbMM 3qB3Nhl2M6sK1ofRFsUIMxb KVmAdSvENRikh6kuMKbIUcl i4TtGVL3isQ7mRZxwHJdPED pNW27Dxcdq8TbFdays3BhX1 1ijTT7BDreq9ikJS9qPvD8q mFoVShzd5xecW9kZpO3LKut XF0cEG7tCFRluV2eezehHNJ nYnJkcmhlYWRccGdicmRyZm 3ehVleYFS0IYzyD1herM2nF hS5HRwoX8gsoH4eBGu1HNsy xSZ3CEKwtZ6kML9rfcjph0l jAFxkNFzsHMYokuR2dbG9RN AhpVTeY7LxrZ7wYSEiIQ2ol vkts1vjRIC4HOvsFEPdHWV2 XoWsOBPmw6Viket4ZnWec6O jaIYfVMvmI85vu888ATTttq QaY8ircJZzucicfYKeqbakP LjmklU3DKGyHWKsMAtsBOVc XGZzMjJcbGFuZzEwMzNcaGl jaFxmMVxkYmNoXGYxXGxvY2 klBlClK0WeNZNkQmFvIFmsY PawvAEdnVAaeKY8oT2fAF3p GKKszSHkP2WlKDRcwzMdjUH qGUI5uFBlmURwWA9hONxwkK Nsj5ufo9OkD5wpeBnquPO5I X0fRBTtBJVkKWyke3VhoO0e LlxwbGFpblxmMVxmczIyXGx zcvdmCXYlTRbjE5hfSpHnHA DmgDhgNBgpx0WzUNHfWRIpC utafwOuROf0pnFlPQBbqxes MSCdcQyubZ4jToDcEyZrQyo iDZ1pDBDoK6ngjQRvFTZuZM QxL7ddJeKsoX1aqOmyLGyxV aVvLhAfQpDRv904xa3gVNPm eFIowzNXxTMeyW3mRDczJUg gIFeioRQaQVakh4qhSSHqx5 i9eSToWMPbkeWyh5abWWjfi cEcTENhjHLxnLByFHUxc82w AQrjeTzfvVukEFFpa1KhyKn ec8YwVzKuACqyk2CfQ67hmO JvbCBzbGlkZXMgcnVuIGFsb 94xv3caNUUsKjE6mNVrvUM9 bRBpyTHen9JfyFtaYAYbq5m lPEWkdw5bvylhaBOwc2JpqN 5pbmcuIEludGVybmFsIHBvc 8p0cIYoLYNxWGFpSKquyDa7 ATBrv515bh7ujdD9bVVbFGW 2YWlsYWJsZSBhcmUgZXZhbH VhdGVkXHBsYWluXGYxXGZzM jJcbGFuZzEwMzNcaGljaFxm DToxAcPmULYnADqdD0umGtH xR0YrZMXxCaQuwXDpY7mksM FyXHBsYWluXGYxXGZzMjJcb GFuZzEwMzNcaGljaFxmMVxk ZeIbAHJaGEkmK6ysUxBhJ9P yXGZzMjIgIFxwbGFpblxmMV xmczIyXGxhbmcxMDMzXGhpY 1hgYtWwLXClmPnuDBlks5Ru BFTzIRYiStrdvxXaQEc7kjD oXHBhclxwbGFpblxmMVxmcz DoYLojktiqNFXuMEidW3ibQ sCeHJQplObdFTvpt0EmOMXd ICThNlzdrzZkILxhoWPnu0f fc8OqE4gmcQuhrWH1OVTaJ4 ccnPGjyEB3WDI9sA8wSHgts tVrNBDib5OhKZDlQQHhAzG9 wB8gSRX4MyUJrNhyMEQlQNd uXGYxXGZzMjJcbGFuZzEwMz NcaGljaFxmMVxkYmNoXGYxX YqvX1sqJqWiJ9YeYPUgJzMi nIhaCOcsWAx6HpqpgOVvqsn mMVxmczIyXGxhbmcxMDMzXG dvQ1nyTfFjFQTdiYojVYhou 2NoXGYxXGNmMlxmczIyIHMg KEIcxRZkhYDMQB45VNAzXLZ knJtncH6sdRSHQUQfbnI3u5 N9BMcnMPOpXXv4QSvmviDpJ YAmeN1wODReFS8aMRw1vrCx OOCbr5HxMB8oIHNbcNEyWXO 7BGKmq3VcY7Dfl8CjDRKuWF Dmpp1tmfKaHhKXpXCvSVXfo e96JTOxMB5qH9xpRIUmPVZl mjHhwDDpm2NnZNXfiBC3eXK sOW3ZRlDGb15aIGJlVGHHep IaFBQszAqehMB5bqG0nG2xT iBUaGUgRkRBIGhhcyBkZXRl nz9cbfImPFHeNUBnc8FiiIX jrPAjkvOeN2Fiu6FnRYTwhl 72YGjctHEtoh33AS3dG8Wxr 0UamC1tTMcaYCYan7VokTXg oZQmCJUos6XtU2hkbzbuEDv csKMxoN0aIFSwQAj1HELlq4 AkKFNge1HhYtHwgsZhJQLrJ DCbDRKdeK94LNG6dJswuVcm upCuUH6mWWNbxuYcWCJrFPL yzC6rDLbjigXyWLRtcbO9g0 S4GVgfBKWrhxLxZsufCEX1c lNqhnI1mDBmH3paufarTKrg CCPyn4FfgL1vpJJVuZZgw2V awQYrqTNTpYUrXY7uidWlTC 7iPYA1YHncLAEEBREgUIvgN ODgRMD7NMzaDnxkYEV5dbAk MVTmy4UbMDahV4blR38wiXf eoRh2mNYiwLcrnXJweJOpPU NrzaD8r4B8CQYwl8ZnzhoyZ HBsYWluXGYyXGZzMjJcbGFu ZzEwMzNcaGljaFxmMlxkYmN yXRXhXSciE3jbJzGwZrQfQn wwOGO7jC== [id number] 16:16:21Surgical Pathology Report Case: [id number] Authorizing Provider: Dino Spence Jr., MD Collected: 05/16/2022 10:25 AM Ordering Location: [facility] Received: 05/16/2022 02:48 PM PERIOPERATIVE SERVICES Pathologist: Estrellita Meehan MD Specimens: A) - Liver, [place] LIVER AND GALLBLADDER B) - Gallbladder, Donor Gallbladder A. LIVER AND GALLBLADDER, HEPATECTOMY (EXPLANT) AND CHOLECYSTECTOMY:-CIRRHOSIS (STAGE 4), MICRONODULAR CONSISTENT WITH ETIOLOGY OF STEATOHEPATITIS-NEGATIVE FOR DYSPLASIA OR MALIGNANCY-CHRONIC CHOLECYSTITIS WITH CHOLELITHIASIS-MARGINS ARE FREE OF DYSPLASIA OR CARCINOMAB. GALLBLADDER (DONOR), CHOLECYSTECTOMY:-CHRONIC CHOLECYSTITIS Signing Pathologist Direct Phone Line: [phone] signed by Estrellita Meehan MD on 05/21/2022 at 4:16 [id number] [id number]. Liver.Received in formalin and labeled with the patient information "liver" is composed of a liver weighing 1114 g and measuring 23 x 17 x 10 cm. Also seen attached is a gallbladder measuring 6 x 3 x 3 cm.Externally the liver appears multinodular with varying size nodules and green to black in color.Received fresh, labeled with the patient's name, MRN and labeled "liver" is a 1101 gram, 23 x 17 x 10 cm liver explant.The attached gallbladder is 6 x 3 x 3 cm.The capsule is green to black in color and displays multiple varying sized nodules throughout with fibrous septae. No definite lesions are identified grossly. The liver is serially sectioned to reveal greenish-yellow homogenous galarza, firm parenchyma with fibrousseptae. No lesions are identified on cut surface. Lymph nodes are not identified in the hilum.The gallbladder serosa is unremarkable. A cystic duct lymph nose is not present. The gallbladder is opened to reveal a single stone measuring 0.5 cm in greatest dimension and black in color. The mucosa is greenish velvety. The wall thickness is 0.2 cm. No gross lesions are in the gallbladder. Manager Motor sections are submitted.Section Code:A1: Bile duct and vascular margins, en faceA2: Segment IA3: Segment IIA4: Segment IIIA5: Segment 4a and 4bA6: Segment 5A7: Segment 6A8: Segment 7A9: Segment 8A10: Gall blader B. Gallbladder.Received in formalin and labeled with the patient information "gallbladder" iscomposed of a gallbladder measuring 10.5 x 3 x 2 cm. The gallbladder shows a perforation on the external aspect measuring 1.5 x 0.5 cm and is 7.2 cm away from the cystic duct margin. On cutting open, the gallbladder mucosa is reddish-green and velvety no stone is identified. The gallbladder wall thickness is 0.2 cm. Manager Motor sections are submitted in cassettes B1 and B2 with the cystic duct margin submitted en face in B1.NDDiffuse disruption in architecture of the entire liver. Bridging fibrous septa highlighted by Trichrome and Reticulin. Rounded parenchymal nodules of regenerating hepatocytes. Moderate macrosteatosis, frequent ballooning, moderate lobular inflammation with ductular reaction and marked intrahepatic and intracanalicular cholestasis. PASD stain is negative for alpha-1 antitrypsin globules. Iron stain is negative for increased ironThe interpretation of this case included theuse of immunohistochemistry or special stains.Control Slides Examined: In-house known positive controls were evaluated along with the test tissue. These control slides run alongside of the patients sample show appropriate staining. Internal positive and negative controls when available are evaluated Immunohistochemistry technical testing was performed at [facility], Pathology Laboratory where it was developed and its performance characteristics were determined. It has not been cleared or approved by the U.S. Food and Drug Administration. The FDA has determined that such clearance or approval is not necessary. The test is used for clinical purposes. It should not be regarded as investigational or for research. This laboratory is certified under the Clinical Laboratory Improvement Amendments of 1988 (CLIA-88) as qualified to perform high complexity clinical laboratory testing.Anaerobic [id number] 13:12:16 Test Item Value Reference Range Interpretation Comments Result (test code = No anaerobes isolated 6463-4) [facility] [id number] 13:12:16 Test Item Value Reference Range Interpretation Comments Result (test code = No anaerobes isolated 6463-4) [facility] [id number] 13:12:16 Test Item Value Reference Range Interpretation Comments CULTURE (BEAKER) (test No anaerobes isolated code = 1095) SARS-COV2/RT-PCR ([facility])2022-05-21 12:53:19 Test Item Value Reference Range Interpretation Comments SARS-COV2/RT-PCR Negative Negative The SARS-Co V-2 target (test code = nucleic acids a re not [id number]) detected in thi s specimen. Negative result s do not preclude SARS-C oV-2 infection and s hould not be used as the derick e basis for patient managem ent decisions. Nega tive results must be combine d with clinical observ ations, patient history , and epidemiological information. A false negativ e result may occur if a spec imen is improperly erika ected, transported or handled. This SARS CoV-2 test is a rapid, real-time RT-PC R test intended for th e qualitative detection of nu cleic acid from SARS-CoV-2 in a nasopharyngeal swab specimen collected from individuals suspected of CO VID-19 by their healthcar e provider. This test has been authorized by FDA under an EUA for use by authorized laboratories. This test is only authorized for the duration of the declaration that circumstances exist justifying the authorization of emergency use of in vitro diagnostic tests for detection and/or diagnosis of COVID-19 under Section 564(b)(1) of the Federal Food, Drug and Cosmetic Act, 21 U.S.C. 360bbb-3(b)(1), unless the authorization is terminated or revoked sooner. Fact Sheet for Healthcare Providers: https://www.[employer] m/Documents/Xpert%20Xpress%20SARS%20CoV-2/Fact%20Sheets/302-3802%74BFLC-SWK-3%20 HEALTHCARE%20PROVIDERS%20FACT%20SHEET.pdf Fact Sheet for Healthcare Patients: https://www.[employer]/Documents/Xpert%20Xp ress%20SARS%20CoV-2/Fact%20Sheets/302-3801%82CAIE-SNB-2%20PATIENT%20FACT%20SHEET .pdfPOCT-GLUCOSE [id number] 11:21:32 Test Item Value Reference Range Interpretation Comments POC-GLUCOSE METER 115 mg/dL 70-110 H : TESTED A T [facility] 6720 (Taktio) (test code = [facility], 1538) [address]: Strawhat Sizer/Techni daren ID = [id number] for KAYLIE LUZ TACROLIMUS [id number] 09:46:22 Test Item Value Reference Range Interpretation Comments TACROLIMUS BLOOD 3.6 ng/mL 10.0-20.0 L Test perfor med on Greer (BEAKER) (test code Architec t Immunoassay = 657) system with Chemiluminescen t Microparticle I mmunoassay (CMIA) technolo gy. Strawhat Sizer ID - ADMINPOCT-GLUCOSE [id number] 08:44:36 Test Item Value Reference Range Interpretation Comments POC-GLUCOSE METER 109 mg/dL 70-110 : TESTED A T [facility] 6720 (BEAKER) (test code = [facility] Lilian [facility], 1538) [address]: Strawhat Sizer/Techni daren ID = [id number] for KAYLIE LUZ (CELLAVISION MANUAL DIFF)2022-05-21 07:17:10 Test Item Value Reference Range Interpretation Comments NEUTROPHILS - REL 66 % (CELLAVISION)(BEAKER) (test code = 2816) LYMPHOCYTES - REL 9 % (CELLAVISION)(BEAKER) (test code = 2817) MONOCYTES - REL 7 % (CELLAVISION)(BEAKER) (test code = 2818) EOSINOPHILS - REL 4 % (CELLAVISION)(BEAKER) (test code = 2819) BANDS - REL (CELLAVISION)(BEAKER) 14 % 0-10 H (test code = 2826) NEUTROPHILS - ABS 2.24 K/ul 1.56-6.13 (CELLAVISION)(BEAKER) (test code = 2830) LYMPHOCYTES - ABS 0.31 K/ul 1.18-3.74 L (CELLAVISION)(BEAKER) (test code = 2831) MONOCYTES - ABS 0.24 K/uL 0.24-0.36 (CELLAVISION)(BEAKER) (test code = 2832) EOSINOPHILS - ABS 0.14 K/uL 0.04-0.36 (CELLAVISION)(BEAKER) (test code = 2834) BANDS - ABS (CELLAVISION)(BEAKER) 0.48 K/uL 0.00-0.80 (test code = 2840) TOTAL COUNTED (BEAKER) (test code 100 = 1351) MANUAL NRBC PER 100 CELLS (BEAKER) 1 /100 WBC 0-0 H (test code = 1353) PLT MORPHOLOGY (BEAKER) (test code Normal = 486) SMUDGE CELLS (BEAKER) (test code = Present 1371) POLYCHROMATOPHILLIC RBCS(BEAKER) 1+ few (test code = 478) ANISOCYTOSIS (BEAKER) (test code = 1+ few 961) MICROCYTES (BEAKER) (test code = 1+ few 965) POIKILOCYTES (BEAKER) (test code = 1+ few 966) OVALOCYTES (BEAKER) (test code = 1+ few 477) ARTIFACT (CELLAVISION)(BEAKER) Present (test code = 3432) PLATELET CONCENTRATION Decreased (CELLAVISION)(BEAKER) (test code = 3438) Strawhat Sizer ID - [id number] ID - Vinicius Dato-onUser comments: Slide comments: CBC W/PLT COUNT & AUTO [id number] 07:17:09 Test Item Value Reference Range Interpretation Comments WHITE BLOOD CELL COUNT (BEAKER) 3.4 K/ L 3.5-10.5 L (test code = 775) RED BLOOD CELL COUNT (BEAKER) 2.67 M/ L 3.93-5.22 L (test code = 761) HEMOGLOBIN (BEAKER) (test code = 8.0 GM/DL 11.2-15.7 L 410) HEMATOCRIT (BEAKER) (test code = 23.8 % 34.1-44.9 L 411) MEAN CORPUSCULAR VOLUME (BEAKER) 89.1 fL 79.4-94.8 (test code = 753) MEAN CORPUSCULAR HEMOGLOBIN 30.0 pg 25.6-32.2 (BEAKER) (test code = 751) MEAN CORPUSCULAR HEMOGLOBIN CONC 33.6 GM/DL 32.2-35.5 (BEAKER) (test code = 752) RED CELL DISTRIBUTION WIDTH 18.2 % 11.7-14.4 H (BEAKER) (test code = 412) PLATELET COUNT (BEAKER) (test code 32 K/CU MM 150-450 L = 756) MEAN PLATELET VOLUME (BEAKER) 12.2 fL 9.4-12.3 (test code = 754) NUCLEATED RED BLOOD CELLS (BEAKER) 0 /100 WBC 0-0 (test code = 413) TSH/FREE T4 IF [id number] 04:45:32 Test Item Value Reference Range Interpretation Comments THYROID STIMULATING HORMONE 1.907 uIU/mL 0.350-4.940 (BEAKER) (test code = 772) Strawhat Sizer ID - MARCY LVANCOMYCIN LEVEL, [id number] 04:38:26 Test Item Value Reference Range Interpretation Comments VANCOMYCIN RANDOM (BEAKER) (test 23.3 ug/mL code = 523) Reference Range: No NormalsOperator ID - MICHELLE WBASIC METABOLIC [id number] 04:36:18 Test Item Value Reference Range Interpretation Comments SODIUM (BEAKER) 133 meq/L 136-145 L (test code = 381) POTASSIUM 3.7 meq/L 3.5-5.1 (BEAKER) (test code = 379) CHLORIDE (BEAKER) 101 meq/L 98-107 (test code = 382) CO2 (BEAKER) 21 meq/L 22-29 L (test code = 355) BLOOD UREA 39 mg/dL 7-21 H NITROGEN (BEAKER) (test code = 354) CREATININE 4.28 mg/dL 0.57-1.25 H (BEAKER) (test code = 358) GLUCOSE RANDOM 122 mg/dL 70-105 H (BEAKER) (test code = 652) CALCIUM (BEAKER) 8.3 mg/dL 8.4-10.2 L (test code = 697) EGFR (BEAKER) 11 Interpretatio n of eGFR (test code = mL/min/1.73 values Stage De scription 1092) sq m Result G1 Stephanie l or high >=90 G2 Mildly decreased 60-89 G3a Mildl y to moderately 45-5 9 G3b Moderately to s everely 30-44 G4 Severl y decreased 15-29 G5 Kidney failure <15Reported eGF R is based on the CKD-EPI 2020 equation that d oes not use a race coefficientEsti mated GFR is not as accur ate as Creatinine Regina fara in predicting glom erular filtration rate . Estimated GFR is not appl icable for dialysis patien ts Strawhat Sizer ID Rosina GARIBAYpecshandra slightly ictericHEPATIC FUNCTION [id number] 04:34:29 Test Item Value Reference Range Interpretation Comments TOTAL PROTEIN (BEAKER) (test code = 5.3 gm/dL 6.0-8.3 L 770) ALBUMIN (BEAKER) (test code = 1145) 2.4 g/dL 3.5-5.0 L BILIRUBIN TOTAL (BEAKER) (test code 4.6 mg/dL 0.2-1.2 H = 377) BILIRUBIN DIRECT (BEAKER) (test 3.5 mg/dL 0.1-0.5 H code = 706) ALKALINE PHOSPHATASE (BEAKER) (test 248 U/L 40-150 H code = 346) AST (SGOT) (BEAKER) (test code = 20 U/L 5-34 353) ALT (SGPT) (BEAKER) (test code = 65 U/L 6-55 H 347) Strawhat Sizer ID Rosina Villafuertecarlozchiara slightly [id number] 04:34:28 Test Item Value Reference Range Interpretation Comments MAGNESIUM (BEAKER) (test code = 1.8 mg/dL 1.6-2.6 627) Strawhat Sizer ID Rosina MARTINEZ [id number] 04:34:28 Test Item Value Reference Range Interpretation Comments PHOSPHORUS (BEAKER) (test code = 3.0 mg/dL 2.3-4.7 604) Strawhat Sizer ID - MICHELLE [id number] 04:21:38 Test Item Value Reference Range Interpretation Comments PREALBUMIN (BUDDY) (test code = 24 mg/dL 14-45 586) Strawhat Sizer ID - MARCY LIMMUNOGLOBULIN G (IGG)2022-05-21 04:21:38 Test Item Value Reference Range Interpretation Comments IMMUNOGLOBULIN G (IGG) 819 mg/dL See_Comment [Aut omated message] (BUDDY) (test code = The sy stem which 427) generated this result transmit kevin reference range : 540-1,822. The reference range was not used to interpret this result as normal/abnormal . Strawhat Sizer ID - MARCY LPROTHROMBIN TIME/[id number] 04:16:38 Test Item Value Reference Range Interpretation Comments PROTIME (BUDDY) 14.3 seconds 11.9-14.2 H (test code = 759) INR (BUDDY) (test 1.18 See_Comment [Automat ed message] code = 370) The system [employer] generated this result transmitted ref erence range: <=5.90. The reference range was not used to int erpret this result as normal/abnormal . RECOMMENDED COUMADIN/WARFARIN INR THERAPY RANGESSTANDARD DOSE: 2.0 - 3.0 Includes: PROPHYLAXIS for venous thrombosis, systemic embolization; TREATMENT for venous thrombosis and/or pulmonary embolus.HIGH RISK: Target INR is 2.5-3.5 for patients with mechanical heart valves.POCT-GLUCOSE [id number] 20:35:41 Test Item Value Reference Range Interpretation Comments POC-GLUCOSE METER 114 mg/dL 70-110 H : TESTED A T [facility] 6720 (Taktio) (test code = [facility], 1538) [address]: Strawhat Sizer/Techni daren ID = [id number] for Madan Rolon POCT-GLUCOSE [id number] 16:37:35 Test Item Value Reference Range Interpretation Comments POC-GLUCOSE METER 169 mg/dL 70-110 H : TESTED A T [facility] 67[address] (Taktio) (test code = [facility], 1538) [address]: Strawhat Sizer/Techni daren ID = [id number] for LO ALTON, KAYLIE CBC W/PLT COUNT & AUTO [id number] 13:49:33 Test Item Value Reference Range Interpretation Comments WHITE BLOOD CELL COUNT (BEAKER) 4.0 K/ L 3.5-10.5 (test code = 775) RED BLOOD CELL COUNT (BEAKER) 2.61 M/ L 3.93-5.22 L (test code = 761) HEMOGLOBIN (BEAKER) (test code = 7.8 GM/DL 11.2-15.7 L 410) HEMATOCRIT (BEAKER) (test code = 23.5 % 34.1-44.9 L 411) MEAN CORPUSCULAR VOLUME (BEAKER) 90.0 fL 79.4-94.8 (test code = 753) MEAN CORPUSCULAR HEMOGLOBIN 29.9 pg 25.6-32.2 (BEAKER) (test code = 751) MEAN CORPUSCULAR HEMOGLOBIN CONC 33.2 GM/DL 32.2-35.5 (BEAKER) (test code = 752) RED CELL DISTRIBUTION WIDTH 18.1 % 11.7-14.4 H (BEAKER) (test code = 412) PLATELET COUNT (BEAKER) (test code 30 K/CU MM 150-450 L = 756) MEAN PLATELET VOLUME (BEAKER) 12.4 fL 9.4-12.3 H (test code = 754) NUCLEATED RED BLOOD CELLS (BEAKER) 0 /100 WBC 0-0 (test code = 413) NEUTROPHILS RELATIVE PERCENT 90 % (BEAKER) (test code = 429) LYMPHOCYTES RELATIVE PERCENT 6 % (BEAKER) (test code = 430) MONOCYTES RELATIVE PERCENT 3 % (BEAKER) (test code = 431) EOSINOPHILS RELATIVE PERCENT 1 % (BEAKER) (test code = 432) BASOPHILS RELATIVE PERCENT 0 % (BEAKER) (test code = 437) NEUTROPHILS ABSOLUTE COUNT 3.60 K/ L 1.56-6.13 (BEAKER) (test code = 670) LYMPHOCYTES ABSOLUTE COUNT 0.23 K/ L 1.18-3.74 L (BEAKER) (test code = 414) MONOCYTES ABSOLUTE COUNT (BEAKER) 0.11 K/ L 0.24-0.36 L (test code = 415) EOSINOPHILS ABSOLUTE COUNT 0.02 K/ L 0.04-0.36 L (BEAKER) (test code = 416) BASOPHILS ABSOLUTE COUNT (BEAKER) 0.01 K/ L 0.01-0.08 (test code = 417) IMMATURE GRANULOCYTES-RELATIVE 1 % 0-1 PERCENT (BEAKER) (test code = 2801) TACROLIMUS [id number] 13:05:14 Test Item Value Reference Range Interpretation Comments TACROLIMUS BLOOD 2.8 ng/mL 10.0-20.0 L Test perfor med on Greer (BEAKER) (test code Architec t Immunoassay = 657) system with Chemiluminescen t Microparticle I mmunoassay (CMIA) technolo gy. Strawhat Sizer ID - ADMINVANCOMYCIN LEVEL, [id number] 12:19:40 Test Item Value Reference Range Interpretation Comments VANCOMYCIN RANDOM (BEAKER) (test 23.5 ug/mL code = 523) Reference Range: No NormalsOperator ID - JANET MPOCT-GLUCOSE [id number] 11:28:37 Test Item Value Reference Range Interpretation Comments POC-GLUCOSE METER 181 mg/dL 70-110 H : TESTED A T [facility] ([facility]) (test code = [place], 1538) [address]: Strawhat Sizer/Techni daren ID = [id number] for KAYLIE LUZ (CELLAVISION MANUAL DIFF)2022-05-20 09:19:42 Test Item Value Reference Range Interpretation Comments NEUTROPHILS - REL 90 % (CELLAVISION)(BEAKER) (test code = 2816) LYMPHOCYTES - REL 6 % (CELLAVISION)(BEAKER) (test code = 2817) MONOCYTES - REL 2 % (CELLAVISION)(BEAKER) (test code = 2818) BANDS - REL (CELLAVISION)(BEAKER) 2 % 0-10 (test code = 2826) NEUTROPHILS - ABS 6.12 K/ul 1.56-6.13 (CELLAVISION)(BEAKER) (test code = 2830) LYMPHOCYTES - ABS 0.41 K/ul 1.18-3.74 L (CELLAVISION)(BEAKER) (test code = 2831) MONOCYTES - ABS 0.14 K/uL 0.24-0.36 L (CELLAVISION)(BEAKER) (test code = 2832) BANDS - ABS (CELLAVISION)(BEAKER) 0.14 K/uL 0.00-0.80 (test code = 2840) TOTAL COUNTED (BEAKER) (test code = 100 1351) WBC MORPHOLOGY (BEAKER) (test code Normal = 487) PLT MORPHOLOGY (BEAKER) (test code Normal = 486) ANISOCYTOSIS (BEAKER) (test code = 1+ few 961) MICROCYTES (BEAKER) (test code = 1+ few 965) MACROCYTES (BEAKER) (test code = 1+ few 964) ARTIFACT (CELLAVISION)(BEAKER) Present (test code = 3432) PLATELET CONCENTRATION Decreased (CELLAVISION)(BEAKER) (test code = 3438) Strawhat Sizer ID - Joan OverholtUser comments: Slide comments:CBC W/PLT COUNT & AUTO [id number] 09:19:41 Test Item Value Reference Range Interpretation Comments WHITE BLOOD CELL COUNT (BEAKER) 6.8 K/ L 3.5-10.5 (test code = 775) RED BLOOD CELL COUNT (BEAKER) 2.63 M/ L 3.93-5.22 L (test code = 761) HEMOGLOBIN (BEAKER) (test code = 7.6 GM/DL 11.2-15.7 L 410) HEMATOCRIT (BEAKER) (test code = 22.9 % 34.1-44.9 L 411) MEAN CORPUSCULAR VOLUME (BEAKER) 87.1 fL 79.4-94.8 (test code = 753) MEAN CORPUSCULAR HEMOGLOBIN 28.9 pg 25.6-32.2 (BEAKER) (test code = 751) MEAN CORPUSCULAR HEMOGLOBIN CONC 33.2 GM/DL 32.2-35.5 (BEAKER) (test code = 752) RED CELL DISTRIBUTION WIDTH 18.2 % 11.7-14.4 H (BEAKER) (test code = 412) PLATELET COUNT (BEAKER) (test code 31 K/CU MM 150-450 L = 756) MEAN PLATELET VOLUME (BEAKER) 11.2 fL 9.4-12.3 (test code = 754) NUCLEATED RED BLOOD CELLS (BEAKER) 0 /100 WBC 0-0 (test code = 413) CALCIUM, [id number] 07:14:00 Test Item Value Reference Range Interpretation Comments CALCIUM IONIZED (BEAKER) (test 1.09 mmol/L 1.12-1.27 L code = 698) PH, BLOOD (BEAKER) (test code = 7.39 1810) POCT-GLUCOSE [id number] 06:26:33 Test Item Value Reference Range Interpretation Comments POC-GLUCOSE METER 127 mg/dL 70-110 H : TESTED A T [facility] 67[facility] (BEAKER) (test code = [place], 1538) [address]: Strawhat Sizer/Techni daren ID = [id number] for Madan Rolon [id number] 04:17:14 Test Item Value Reference Range Interpretation Comments FERRITIN (BEAKER) (test code = 1278.13 ng/mL 5.00-275.00 H 361) Strawhat Sizer ID - JANET MCOMPREHENSIVE METABOLIC [id number] 04:00:32 Test Item Value Reference Range Interpretation Comments TOTAL PROTEIN 4.9 gm/dL 6.0-8.3 L (BEAKER) (test code = 770) ALBUMIN (BEAKER) 2.4 g/dL 3.5-5.0 L (test code = 1145) ALKALINE 212 U/L 40-150 H PHOSPHATASE (BEAKER) (test code = 346) BILIRUBIN TOTAL 4.1 mg/dL 0.2-1.2 H (BEAKER) (test code = 377) SODIUM (BEAKER) 136 meq/L 136-145 (test code = 381) POTASSIUM (BEAKER) 3.5 meq/L 3.5-5.1 (test code = 379) CHLORIDE (BEAKER) 103 meq/L 98-107 (test code = 382) CO2 (BEAKER) (test 24 meq/L 22-29 code = 355) BLOOD UREA 31 mg/dL 7-21 H NITROGEN (BEAKER) (test code = 354) CREATININE 3.41 mg/dL 0.57-1.25 H (BEAKER) (test code = 358) GLUCOSE RANDOM 154 mg/dL 70-105 H (BEAKER) (test code = 652) CALCIUM (BEAKER) 8.2 mg/dL 8.4-10.2 L (test code = 697) AST (SGOT) 20 U/L 5-34 (BEAKER) (test code = 353) ALT (SGPT) 104 U/L 6-55 H (BEAKER) (test code = 347) EGFR (BEAKER) 15 Interpretatio n of eGFR (test code = 1092) mL/min/1.[address] age Description sq m Result G1 Stephanie l or high >=90 G2 Mildly decreased 60-89 G3a Mildl y to moderately 45-5 9 G3b Moderately to s everely 30-44 G4 Severl y decreased 15-29 G5 Kidney failure <15Reported eGF R is based on the CKD-EPI 2020 equation that d oes not use a race coefficientEsti mated GFR is not as accur ate as Creatinine Regina fara in predicting glom erular filtration rate . Estimated GFR is not appl icable for dialysis patien ts Strawhat Sizer ID - JANET MSpecimen slightly [id number] 03:57:53 Test Item Value Reference Range Interpretation Comments MAGNESIUM (BEAKER) (test code = 1.9 mg/dL 1.6-2.6 627) Strawhat Sizer ID - JANET [id number] 03:57:53 Test Item Value Reference Range Interpretation Comments PHOSPHORUS (BEAKER) (test code = 3.4 mg/dL 2.3-4.7 604) Strawhat Sizer ID - JANET JARROD, TIBC, % SAT. (WITHOUT FERRITIN)2022-05-20 03:56:58 Test Item Value Reference Range Interpretation Comments IRON (BEAKER) (test code = 547) 18.0 ug/dL 40.0-160.0 L TOTAL IRON BINDING CAPACITY 161 ug/dL 250-450 L (BEAKER) (test code = 769) IRON % SATURATION (2) (BEAKER) 11 % 20-55 L (test code = 2590) Strawhat Sizer ID - JANET MRETICULOCYTE [id number] 03:31:33 Test Item Value Reference Range Interpretation Comments RETICULOCYTE COUNT PCT (BEAKER) (test 4.4 % 0.5-1.7 H code = 575) Strawhat Sizer ID - [id number] ID - [id number]-GLUCOSE [id number] 23:28:32 Test Item Value Reference Range Interpretation Comments POC-GLUCOSE METER 121 mg/dL 70-110 H : TESTED A T [facility] 6720 (BEAKER) (test code = [place], 1538) [address]: Strawhat Sizer/Techni daren ID = [id number] for Sp Madan sandoval POCT-GLUCOSE [id number] 22:14:02 Test Item Value Reference Range Interpretation Comments POC-GLUCOSE METER 140 mg/dL 70-110 H : TESTED A T [facility] 6720 (Taktio) (test code = MOISÉSCT Lilian [facility], 1538) [address]: Strawhat Sizer/Techni daren ID = [id number] for Chang horvath (contract)Jesus sierra POCT-GLUCOSE [id number] 17:56:37 Test Item Value Reference Range Interpretation Comments POC-GLUCOSE METER 129 mg/dL 70-110 H : TESTED A T [facility] 6720 (Taktio) (test code = [facility], 1538) [address]: Strawhat Sizer/Techni daren ID = [id number] for Danial Urrutia TACROLIMUS [id number] 12:10:08 Test Item Value Reference Range Interpretation Comments TACROLIMUS BLOOD 4.8 ng/mL 10.0-20.0 L Test perfor med on Greer (BEAKER) (test code Architec t Immunoassay = 657) system with Chemiluminescen t Microparticle I mmunoassay (CMIA) technolo gy. Strawhat Sizer ID - ADMINCT, BRAIN, WITHOUT [id number] 11:55:00 [facility] : 1965 Sex: FFINAL REPORT CT, BRAIN, WITHOUT CONTRAST CLINICAL INDICATION: Mental status change, unknown cause COMPARISON: None TECHNIQUE: Noncontrast axial CT imaging of the brain and skull. Coronal and sagittal reformats are provided. DOSE REDUCTION: Dose modulation, iterative reconstruction, and/or weight-based adjustment of the mA/kV was utilized to reduce the radiation dose to as low as reasonably achievable. FINDINGS:No intracranial hemorrhage, midline shift or mass effect. Midline structuresare normally developed. Hypoattenuation within the periventricular and subcortical white matter is present, nonspecific by imaging, however, statistically representing chronic microvascular changes in t his age group. Diffuse senescent parenchymal volume loss. Calcifications along the anterior interhemispheric falx.No hydrocephalus. Atherosclerotic calcification of the intracranial internal carotid and vertebral arteries. Orbits are within normal limits. No obstructive paranasal sinus disease. IMPRESS ION: 1.No acute intracranial findings2.Mild to moderate generalized parenchymal volume loss is present.If there is persistent clinical concern for intracranial pathology, MR should be considered for further characterization. Signed: Darryl Samuels MDReport Verified Date/Time: 05/19/2022 11:55:42 COMPREHENSIVE METABOLIC PANEL 2022-05-19 04:19:16 Test Item Value Reference Range Interpretation Comments TOTAL PROTEIN 4.9 gm/dL 6.0-8.3 L (BEAKER) (test code = 770) ALBUMIN (BEAKER) 2.5 g/dL 3.5-5.0 L (test code = 1145) ALKALINE 145 U/L 40-150 PHOSPHATASE (BEAKER) (test code = 346) BILIRUBIN TOTAL 4.9 mg/dL 0.2-1.2 H (BEAKER) (test code = 377) SODIUM (BEAKER) 138 meq/L 136-145 (test code = 381) POTASSIUM (BEAKER) 3.6 meq/L 3.5-5.1 (test code = 379) CHLORIDE (BEAKER) 104 meq/L 98-107 (test code = 382) CO2 (BEAKER) (test 26 meq/L 22-29 code = 355) BLOOD UREA 21 mg/dL 7-21 NITROGEN (BEAKER) (test code = 354) CREATININE 2.25 mg/dL 0.57-1.25 H (BEAKER) (test code = 358) GLUCOSE RANDOM 126 mg/dL 70-105 H (BEAKER) (test code = 652) CALCIUM (BEAKER) 8.1 mg/dL 8.4-10.2 L (test code = 697) AST (SGOT) 28 U/L 5-34 (BEAKER) (test code = 353) ALT (SGPT) 176 U/L 6-55 H (BEAKER) (test code = 347) EGFR (BEAKER) 25 Interpretatio n of eGFR (test code = 1092) mL/min/1.[address] age Description sq m Result G1 Stephanie l or high >=90 G2 Mildly decreased 60-89 G3a Mildl y to moderately 45-5 9 G3b Moderately to s everely 30-44 G4 Severl y decreased 15-29 G5 Kidney failure <15Reported eGF R is based on the CKD-EPI 2020 equation that d oes not use a race coefficientEsti mated GFR is not as accur ate as Creatinine Regina fara in predicting glom erular filtration rate . Estimated GFR is not appl icable for dialysis patien ts Strawhat Sizer ID - JANET MSpecimen slightly ictericCBC W/PLT COUNT & AUTO [id number] 04:08:22 Test Item Value Reference Range Interpretation Comments WHITE BLOOD CELL COUNT (BEAKER) 6.5 K/ L 3.5-10.5 (test code = 775) RED BLOOD CELL COUNT (BEAKER) 2.92 M/ L 3.93-5.22 L (test code = 761) HEMOGLOBIN (BEAKER) (test code = 8.5 GM/DL 11.2-15.7 L 410) HEMATOCRIT (BEAKER) (test code = 24.9 % 34.1-44.9 L 411) MEAN CORPUSCULAR VOLUME (BEAKER) 85.3 fL 79.4-94.8 (test code = 753) MEAN CORPUSCULAR HEMOGLOBIN 29.1 pg 25.6-32.2 (BEAKER) (test code = 751) MEAN CORPUSCULAR HEMOGLOBIN CONC 34.1 GM/DL 32.2-35.5 (BEAKER) (test code = 752) RED CELL DISTRIBUTION WIDTH 17.7 % 11.7-14.4 H (BEAKER) (test code = 412) PLATELET COUNT (BEAKER) (test code 47 K/CU MM 150-450 L = 756) MEAN PLATELET VOLUME (BEAKER) 11.3 fL 9.4-12.3 (test code = 754) NUCLEATED RED BLOOD CELLS (BEAKER) 0 /100 WBC 0-0 (test code = 413) NEUTROPHILS RELATIVE PERCENT 89 % (BEAKER) (test code = 429) LYMPHOCYTES RELATIVE PERCENT 6 % (BEAKER) (test code = 430) MONOCYTES RELATIVE PERCENT 4 % (BEAKER) (test code = 431) EOSINOPHILS RELATIVE PERCENT 1 % (BEAKER) (test code = 432) BASOPHILS RELATIVE PERCENT 0 % (BEAKER) (test code = 437) NEUTROPHILS ABSOLUTE COUNT 5.80 K/ L 1.56-6.13 (BEAKER) (test code = 670) LYMPHOCYTES ABSOLUTE COUNT 0.37 K/ L 1.18-3.74 L (BEAKER) (test code = 414) MONOCYTES ABSOLUTE COUNT (BEAKER) 0.25 K/ L 0.24-0.36 (test code = 415) EOSINOPHILS ABSOLUTE COUNT 0.03 K/ L 0.04-0.36 L (BEAKER) (test code = 416) BASOPHILS ABSOLUTE COUNT (BEAKER) 0.01 K/ L 0.01-0.08 (test code = 417) IMMATURE GRANULOCYTES-RELATIVE 1 % 0-1 PERCENT (BEAKER) (test code = 2801) HEPATIC FUNCTION [id number] 04:07:53 Test Item Value Reference Range Interpretation Comments TOTAL PROTEIN (BEAKER) (test code = 4.9 gm/dL 6.0-8.3 L 770) ALBUMIN (BEAKER) (test code = 1145) 2.5 g/dL 3.5-5.0 L BILIRUBIN TOTAL (BEAKER) (test code 4.9 mg/dL 0.2-1.2 H = 377) BILIRUBIN DIRECT (BEAKER) (test 3.5 mg/dL 0.1-0.5 H code = 706) ALKALINE PHOSPHATASE (BEAKER) (test 145 U/L 40-150 code = 346) AST (SGOT) (BEAKER) (test code = 28 U/L 5-34 353) ALT (SGPT) (BEAKER) (test code = 176 U/L 6-55 H 347) Strawhat Sizer ID - JANET MSpecimen slightly [id number] 04:07:52 Test Item Value Reference Range Interpretation Comments MAGNESIUM (BEAKER) (test code = 2.0 mg/dL 1.6-2.6 627) Strawhat Sizer ID - JANET [id number] 04:07:52 Test Item Value Reference Range Interpretation Comments PHOSPHORUS (BEAKER) (test code = 3.7 mg/dL 2.3-4.7 604) Strawhat Sizer ID - JANET [id number] 04:03:08 Test Item Value Reference Range Interpretation Comments PARTIAL THROMBOPLASTIN TIME 26.7 seconds 22.5-36.0 (BEAKER) (test code = 760) PROTHROMBIN [id number] 04:02:26 Test Item Value Reference Range Interpretation Comments PROTIME (BEAKER) 15.8 seconds 11.9-14.2 H (test code = 759) INR (BEAKER) (test 1.34 See_Comment [Automat ed message] code = 370) The system [facility] [employer] generated this result transmitted ref erence range: <=5.90. The reference range was not used to int erpret this result as normal/abnormal . RECOMMENDED COUMADIN/WARFARIN INR THERAPY RANGESSTANDARD DOSE: 2.0 - 3.0 Includes: PROPHYLAXIS for venous thrombosis, systemic embolization; TREATMENT for venous thrombosis and/or pulmonary embolus.HIGH RISK: Target INR is 2.5-3.5 for patients with mechanical heart valves.CALCIUM, [id number] 03:53:45 Test Item Value Reference Range Interpretation Comments CALCIUM IONIZED (BEAKER) (test 1.08 mmol/L 1.12-1.27 L code = 698) PH, BLOOD (BEAKER) (test code = 7.50 1810) Blood gas, [id number] 03:53:44 Test Item Value Reference Range Interpretation Comments pH, Arterial (test code 7.50 7.35-7.45 H = 2744-1) pCO2, Arterial (test 34 See_Comment L [Autom ated message] code = 2019-8) The system [employer] generated this result transmit kevin reference range : 35 - 45 mm Hg. The reference range was not used to interpret this result as normal/abnormal . pO2, Arterial (test 144 See_Comment H [Automa kevin message] code = 2703-7) The system [employer] generated this result transmit kevin reference range : 80 - 90 mm Hg. The reference range was not used to interpret this result as normal/abnormal . O2 Sat, Arterial (test 99.0 % 96.0-97.0 H code = 2708-6) HCO3, Arterial (test 26 mmol/L 21-29 code = 1960-4) Base Excess, Arterial 2.7 mmol/L -2.0-3.0 (test code = 1925-7) Patient Temperature 37.0 (test code = 8310-5) FIO2 (test code = 1819) 21 Lab Interpretation Abnormal (test code = 83668-4) [facility] [id number] 03:53:44 Test Item Value Reference Range Interpretation Comments pH, Arterial (test code 7.50 7.35-7.45 H = 2744-1) pCO2, Arterial (test 34 See_Comment L [Autom ated message] code = 2019-8) The system [employer] generated this result transmit kevin reference range : 35 - 45 mm Hg. The reference range was not used to interpret this result as normal/abnormal . pO2, Arterial (test 144 See_Comment H [Automa kevin message] code = 2703-7) The system [employer] generated this result transmit kevin reference range : 80 - 90 mm Hg. The reference range was not used to interpret this result as normal/abnormal . O2 Sat, Arterial (test 99.0 % 96.0-97.0 H code = 2708-6) HCO3, Arterial (test 26 mmol/L 21-29 code = 1960-4) Base Excess, Arterial 2.7 mmol/L -2.0-3.0 (test code = 1925-7) Patient Temperature 37.0 (test code = 8310-5) FIO2 (test code = 1819) 21 Lab Interpretation Abnormal (test code = 92591-9) [facility] GAS, [id number] 03:53:44 Test Item Value Reference Range Interpretation Comments PH ARTERIAL (BEAKER) (test code = 7.50 7.35-7.45 H 383) PCO2 ARTERIAL (BEAKER) (test code 34 mm Hg 35-45 L = 384) PO2 ARTERIAL (BEAKER) (test code = 144 mm Hg 80-90 H 385) O2 SATURATION ARTERIAL (BEAKER) 99.0 % 96.0-97.0 H (test code = 386) HCO3 ARTERIAL (BEAKER) (test code 26 mmol/L 21-29 = 388) BASE EXCESS ARTERIAL (BEAKER) 2.7 mmol/L -2.0-3.0 (test code = 387) PATIENT TEMPERATURE (BEAKER) (test 37.0 code = 1818) FIO2 (BEAKER) (test code = 1819) 21.0 RAD, CHEST, 1 VIEW, NON [id number] 21:48:00Reason for exam:->post ct pull, 5PMShould this be performed at the bedside?->Yes [facility] : 1965 Sex: FFINAL REPORT TECHNIQUE: Frontal view of the chest. INDICATION: post ct pull, 5PM. COMPARISON: 05/18/2022 at 12:21 AM. FINDINGS: LINES/TUBES: Right IJ catheter remains unchanged. Interval removal of the left IJ catheter. Right chest tube. New left PICC line with tip projected over the left axilla. HEART AND MEDIASTINUM: Cardiomediastinal contour is within normal limits. LUNGS: Persistent left lower lobe collapse and/or consolidation. No pulmonary edema. PLEURA: Small bilateral pleural effusions. No pneumothorax. SOFT TISSUES AND BONES: Unremarkable. IMPRESSION: 1. Removal of left IJ catheter and right chest tube thorax. New left PICC line with tip projected over the left axilla. Right IJ catheter remains unchanged.2. Persistent small bilateral effusions and left lower lobe collapse and/or consolidation. Signed: Yann Kay MDReport Verified Date/Time: 05/18/2022 21:48:17 POCT-GLUCOSE [id number] 17:45:34 Test Item Value Reference Range Interpretation Comments POC-GLUCOSE METER 129 mg/dL 70-110 H : TESTED A T [facility] 6720 (BEAKER) (test code = [place], 1538) [address]: Strawhat Sizer/Techni daren ID = [id number] for ZULLY SHANKAR CBC W/PLT COUNT & AUTO [id number] 14:59:03 Test Item Value Reference Range Interpretation Comments WHITE BLOOD CELL COUNT (BEAKER) 7.9 K/ L 3.5-10.5 (test code = 775) RED BLOOD CELL COUNT (BEAKER) 3.32 M/ L 3.93-5.22 L (test code = 761) HEMOGLOBIN (BEAKER) (test code = 9.8 GM/DL 11.2-15.7 L 410) HEMATOCRIT (BEAKER) (test code = 28.9 % 34.1-44.9 L 411) MEAN CORPUSCULAR VOLUME (BEAKER) 87.0 fL 79.4-94.8 (test code = 753) MEAN CORPUSCULAR HEMOGLOBIN 29.5 pg 25.6-32.2 (BEAKER) (test code = 751) MEAN CORPUSCULAR HEMOGLOBIN CONC 33.9 GM/DL 32.2-35.5 (BEAKER) (test code = 752) RED CELL DISTRIBUTION WIDTH 17.8 % 11.7-14.4 H (BEAKER) (test code = 412) PLATELET COUNT (BEAKER) (test code 65 K/CU MM 150-450 L = 756) MEAN PLATELET VOLUME (BEAKER) 11.0 fL 9.4-12.3 (test code = 754) NUCLEATED RED BLOOD CELLS (BEAKER) 0 /100 WBC 0-0 (test code = 413) NEUTROPHILS RELATIVE PERCENT 92 % (BEAKER) (test code = 429) LYMPHOCYTES RELATIVE PERCENT 3 % (BEAKER) (test code = 430) MONOCYTES RELATIVE PERCENT 3 % (BEAKER) (test code = 431) EOSINOPHILS RELATIVE PERCENT 0 % (BEAKER) (test code = 432) BASOPHILS RELATIVE PERCENT 0 % (BEAKER) (test code = 437) NEUTROPHILS ABSOLUTE COUNT 7.29 K/ L 1.56-6.13 H (BEAKER) (test code = 670) LYMPHOCYTES ABSOLUTE COUNT 0.27 K/ L 1.18-3.74 L (BEAKER) (test code = 414) MONOCYTES ABSOLUTE COUNT (BEAKER) 0.24 K/ L 0.24-0.36 (test code = 415) EOSINOPHILS ABSOLUTE COUNT 0.01 K/ L 0.04-0.36 L (BEAKER) (test code = 416) BASOPHILS ABSOLUTE COUNT (BEAKER) 0.01 K/ L 0.01-0.08 (test code = 417) IMMATURE GRANULOCYTES-RELATIVE 1 % 0-1 PERCENT (BEAKER) (test code = 2801) Body fluid culture + gram [id number] 13:10:16 Test Item Value Reference Range Interpretation Comments Result (test code = 6463-4) No growth [facility] [id number] 13:10:16 Test Item Value Reference Range Interpretation Comments Result (test code = 6463-4) No growth [facility] + GRAM [id number] 13:10:16 Test Item Value Reference Range Interpretation Comments CULTURE (BEAKER) (test code = 1095) No growth POCT-GLUCOSE [id number] 11:30:31 Test Item Value Reference Range Interpretation Comments POC-GLUCOSE METER 135 mg/dL 70-110 H : TESTED A T [facility] 6720 ([facility]) (test code = [facility], 1538) [address]: Strawhat Sizer/Techni daren ID = [id number] for DE NNIS, ZULLY TACROLIMUS [id number] 09:44:26 Test Item Value Reference Range Interpretation Comments TACROLIMUS BLOOD 5.2 ng/mL 10.0-20.0 L Test perfor med on Greer (BEAKER) (test code Architec t Immunoassay = 657) system with Chemiluminescen t Microparticle I mmunoassay (CMIA) technolo gy. Strawhat Sizer ID - ADMINPOCT-GLUCOSE [id number] 09:19:11 Test Item Value Reference Range Interpretation Comments POC-GLUCOSE METER 111 mg/dL 70-110 H : TESTED A T [facility] 6720 (BEAKER) (test code = [facility], 1538) [address]: Strawhat Sizer/Techni daren ID = [id number] for DE NNIS, ZULLY BLOOD [id number] 07:01:12 Test Item Value Reference Range Interpretation Comments CULTURE (BEAKER) (test No growth in 5 days code = 1095) The specimen volume collected for this blood culture was below the optimum (10 mL per bottle or 20 mL total). Use of lower volumes may adversely affect recovery and/or detection times of some organisms.BLOOD [id number] 07:01:11 Test Item Value Reference Range Interpretation Comments CULTURE (BEAKER) (test No growth in 5 days code = 1095) RAD, CHEST, 1 VIEW, NON [id number] 05:01:00Reason for exam:->CT in placeShould this be performed at the bedside?->Yes [facility] : 1965 Sex: FFINAL REPORT CLINICAL INDICATION: CT in place Comparison: 05/17/2022 The cardiomediastinal contours are stable. The lung volumes remain low but are grossly stable after extubation. Left greater than right parenchymal and pleural opacities are unchanged. There is no pneumothorax. Remaining support lines are stable. Signed: Gregory Lopez MDReport Verified Date/Time: 05/18/2022 05:01:24 APTT 2022-05-18 04:08:02 Test Item Value Reference Range Interpretation Comments PARTIAL THROMBOPLASTIN TIME 26.9 seconds 22.5-36.0 (BEAKER) (test code = 760) PROTHROMBIN [id number] 04:07:28 Test Item Value Reference Range Interpretation Comments PROTIME (BEAKER) 14.2 seconds 11.9-14.2 (test code = 759) INR (BEAKER) (test 1.12 See_Comment [Automat ed message] code = 370) The system [employer] generated this result transmitted ref erence range: <=5.90. The reference range was not used to int erpret this result as normal/abnormal . RECOMMENDED COUMADIN/WARFARIN INR THERAPY RANGESSTANDARD DOSE: 2.0 - 3.0 Includes: PROPHYLAXIS for venous thrombosis, systemic embolization; TREATMENT for venous thrombosis and/or pulmonary embolus.HIGH RISK: Target INR is 2.5-3.5 for patients with mechanical heart valves.BASIC METABOLIC [id number] 04:06:16 Test Item Value Reference Range Interpretation Comments SODIUM (BEAKER) 137 meq/L 136-145 (test code = 381) POTASSIUM 4.3 meq/L 3.5-5.1 (BEAKER) (test code = 379) CHLORIDE (BEAKER) 105 meq/L 98-107 (test code = 382) CO2 (BEAKER) 25 meq/L 22-29 (test code = 355) BLOOD UREA 24 mg/dL 7-21 H NITROGEN (BEAKER) (test code = 354) CREATININE 2.59 mg/dL 0.57-1.25 H (BEAKER) (test code = 358) GLUCOSE RANDOM 134 mg/dL 70-105 H (BEAKER) (test code = 652) CALCIUM (BEAKER) 8.2 mg/dL 8.4-10.2 L (test code = 697) EGFR (BEAKER) 21 Interpretatio n of eGFR (test code = mL/min/1.73 values Stage De scription 1092) sq m Result G1 Stephanie l or high >=90 G2 Mildly decreased 60-89 G3a Mildl y to moderately 45-5 9 G3b Moderately to s everely 30-44 G4 Severl y decreased 15-29 G5 Kidne y failure <15Reported eGF R is based on the CKD-EPI 2021 equation that d oes not use a race coefficientEsti mated GFR is not as accur ate as Creatinine Regina fara in predicting glom erular filtration rate . Estimated GFR is not appl icable for dialysis patien ts Strawhat Sizer ID - PIAYA LSpecimen moderately ictericHEPATIC FUNCTION [id number] 04:04:09 Test Item Value Reference Range Interpretation Comments TOTAL PROTEIN (BEAKER) (test code = 4.6 gm/dL 6.0-8.3 L 770) ALBUMIN (BEAKER) (test code = 1145) 2.4 g/dL 3.5-5.0 L BILIRUBIN TOTAL (BEAKER) (test code 6.6 mg/dL 0.2-1.2 H = 377) BILIRUBIN DIRECT (BEAKER) (test 4.9 mg/dL 0.1-0.5 H code = 706) ALKALINE PHOSPHATASE (BEAKER) (test 143 U/L 40-150 code = 346) AST (SGOT) (BEAKER) (test code = 73 U/L 5-34 H 353) ALT (SGPT) (BEAKER) (test code = 264 U/L 6-55 H 347) Strawhat Sizer ID - MARCY LSpecimen moderately [id number] 04:04:08 Test Item Value Reference Range Interpretation Comments PHOSPHORUS (BEAKER) (test code = 4.8 mg/dL 2.3-4.7 H 604) Strawhat Sizer ID - MARCY [id number] 04:04:07 Test Item Value Reference Range Interpretation Comments MAGNESIUM (BEAKER) (test code = 2.2 mg/dL 1.6-2.6 627) Strawhat Sizer ID - MARCY LCALCIUM, [id number] 03:59:46 Test Item Value Reference Range Interpretation Comments CALCIUM IONIZED (BEAKER) (test 1.14 mmol/L 1.12-1.27 code = 698) PH, BLOOD (BEAKER) (test code = 7.48 1810) BLOOD GAS, [id number] 03:59:03 Test Item Value Reference Range Interpretation Comments PH ARTERIAL (BEAKER) (test code = 7.48 7.35-7.45 H 383) PCO2 ARTERIAL (BEAKER) (test code 33 mm Hg 35-45 L = 384) PO2 ARTERIAL (BEAKER) (test code = 205 mm Hg 80-90 H 385) O2 SATURATION ARTERIAL (BEAKER) 99.5 % 96.0-97.0 H (test code = 386) HCO3 ARTERIAL (BEAKER) (test code 24 mmol/L 21-29 = 388) BASE EXCESS ARTERIAL (BEAKER) 0.5 mmol/L -2.0-3.0 (test code = 387) PATIENT TEMPERATURE (BEAKER) (test 36.7 code = 1818) FIO2 (BEAKER) (test code = 1819) 21.0 CBC W/PLT COUNT & AUTO [id number] 03:51:09 Test Item Value Reference Range Interpretation Comments WHITE BLOOD CELL COUNT (BEAKER) 6.5 K/ L 3.5-10.5 (test code = 775) RED BLOOD CELL COUNT (BEAKER) 3.00 M/ L 3.93-5.22 L (test code = 761) HEMOGLOBIN (BEAKER) (test code = 8.7 GM/DL 11.2-15.7 L 410) HEMATOCRIT (BEAKER) (test code = 25.3 % 34.1-44.9 L 411) MEAN CORPUSCULAR VOLUME (BEAKER) 84.3 fL 79.4-94.8 (test code = 753) MEAN CORPUSCULAR HEMOGLOBIN 29.0 pg 25.6-32.2 (BEAKER) (test code = 751) MEAN CORPUSCULAR HEMOGLOBIN CONC 34.4 GM/DL 32.2-35.5 (BEAKER) (test code = 752) RED CELL DISTRIBUTION WIDTH 17.2 % 11.7-14.4 H (BEAKER) (test code = 412) PLATELET COUNT (BEAKER) (test code 57 K/CU MM 150-450 L = 756) MEAN PLATELET VOLUME (BEAKER) 11.0 fL 9.4-12.3 (test code = 754) NUCLEATED RED BLOOD CELLS (BEAKER) 1 /100 WBC 0-0 H (test code = 413) NEUTROPHILS RELATIVE PERCENT 87 % (BEAKER) (test code = 429) LYMPHOCYTES RELATIVE PERCENT 7 % (BEAKER) (test code = 430) MONOCYTES RELATIVE PERCENT 5 % (BEAKER) (test code = 431) EOSINOPHILS RELATIVE PERCENT 0 % (BEAKER) (test code = 432) BASOPHILS RELATIVE PERCENT 0 % (BEAKER) (test code = 437) NEUTROPHILS ABSOLUTE COUNT 5.59 K/ L 1.56-6.13 (BEAKER) (test code = 670) LYMPHOCYTES ABSOLUTE COUNT 0.44 K/ L 1.18-3.74 L (BEAKER) (test code = 414) MONOCYTES ABSOLUTE COUNT (BEAKER) 0.34 K/ L 0.24-0.36 (test code = 415) EOSINOPHILS ABSOLUTE COUNT 0.00 K/ L 0.04-0.36 L (BEAKER) (test code = 416) BASOPHILS ABSOLUTE COUNT (BEAKER) 0.01 K/ L 0.01-0.08 (test code = 417) IMMATURE GRANULOCYTES-RELATIVE 1 % 0-1 PERCENT (BEAKER) (test code = 2801) Prepare [id number] 23:54:00 Test Item Value Reference Range Interpretation Comments Unit ABO (test code = O Pos 8735071) UNIT NUMBER (test code = [id number] 934-0) Status (test code = 5127772) TX_TIMEINCHART Blood Bank Product (test code CRYOPRECIPITATE = 2263) PRODUCT CODE (test code = [id number] 933-2) [facility] [id number] 23:54:00 Test Item Value Reference Range Interpretation Comments Unit ABO (test code = 6262775) B Pos UNIT NUMBER (test code = [id number] 934-0) Status (test code = 5057253) TX_TIMEINCHART Blood Bank Product (test code FFP = 2263) PRODUCT CODE (test code = [id number] 933-2) [facility] [id number] 23:54:00 Test Item Value Reference Range Interpretation Comments Unit ABO (test code = 4186154) B Pos UNIT NUMBER (test code = [id number] 934-0) Status (test code = 6040472) TX_TIMEINCHART Blood Bank Product (test code PLATELETS = 2263) PRODUCT CODE (test code = B9806U34 933-2) [facility] [id number] 23:54:00 Test Item Value Reference Range Interpretation Comments Unit ABO (test code = O Pos 1034228) UNIT NUMBER (test code = [id number] 934-0) Status (test code = 1427432) TX_TIMEINCHART Blood Bank Product (test code CRYOPRECIPITATE = 2263) PRODUCT CODE (test code = S1408I40 933-2) [facility] [id number] 23:54:00 Test Item Value Reference Range Interpretation Comments Unit ABO (test code = 4019297) B Pos UNIT NUMBER (test code = [id number] 934-0) Status (test code = 6755002) TX_TIMEINCHART Blood Bank Product (test code FFP = 2263) PRODUCT CODE (test code = S7799J38 933-2) [facility] [id number] 23:54:00 Test Item Value Reference Range Interpretation Comments Unit ABO (test code = 4769319) B Pos UNIT NUMBER (test code = [id number] 934-0) Status (test code = 8695976) TX_TIMEINCHART Blood Bank Product (test code PLATELETS = 2263) PRODUCT CODE (test code = M6000R11 933-2) [facility] Center[facility] [id number] 23:36:40 Test Item Value Reference Range Interpretation Comments POC-GLUCOSE METER 123 mg/dL 70-110 H : TESTED A T [facility] 6720 (BEAKER) (test code = [facility], 1538) [id number]: Strawhat Sizer/Techni daren ID = [id number] for EDVIN PEDRO TH POCT-GLUCOSE [id number] 18:09:28 Test Item Value Reference Range Interpretation Comments POC-GLUCOSE METER 152 mg/dL 70-110 H : TESTED A T [facility] 6720 (BEAKER) (test code = [facility], 1538) [address]: Strawhat Sizer/Techni daren ID = [id number] for ZULLY SHANKAR [id number] 14:46:36 Test Item Value Reference Range Interpretation Comments AMMONIA (BEAKER) (test code = 348) 20 mol/L 18-72 Strawhat Sizer ID - JANET MCOMPREHENSIVE METABOLIC [id number] 14:42:11 Test Item Value Reference Range Interpretation Comments TOTAL PROTEIN 4.8 gm/dL 6.0-8.3 L Specimen sligh tly (BEAKER) (test hemolyzed code = 770) ALBUMIN (BEAKER) 2.6 g/dL 3.5-5.0 L Specimen sl ightly (test code = 1145) hemolyzed ALKALINE 125 U/L 40-150 PHOSPHATASE (BEAKER) (test code = 346) BILIRUBIN TOTAL 8.5 mg/dL 0.2-1.2 H Specimen sli ghtly (BEAKER) (test hemolyzed code = 377) SODIUM (BEAKER) 138 meq/L 136-145 (test code = 381) POTASSIUM (BEAKER) 4.5 meq/L 3.5-5.1 Specimen slightly (test code = 379) hemolyzed CHLORIDE (BEAKER) 107 meq/L 98-107 (test code = 382) CO2 (BEAKER) (test 23 meq/L 22-29 code = 355) BLOOD UREA 18 mg/dL 7-21 NITROGEN (BEAKER) (test code = 354) CREATININE 1.99 mg/dL 0.57-1.25 H Specimen slight ly (BEAKER) (test hemolyzed code = 358) GLUCOSE RANDOM 166 mg/dL 70-105 H (BEAKER) (test code = 652) CALCIUM (BEAKER) 8.7 mg/dL 8.4-10.2 (test code = 697) AST (SGOT) 194 U/L 5-34 H Specimen slight ly (BEAKER) (test hemolyzed code = 353) ALT (SGPT) 356 U/L 6-55 H Specimen slight ly (BEAKER) (test hemolyzed code = 347) EGFR (BEAKER) 29 Interpretati on of eGFR (test code = 1092) mL/min/1.[address] age Description sq m Result G1 Stephanie l or high >=90 G2 Mildly decreased 60-89 G3a Mildl y to moderately 45-5 9 G3b Moderately to s everely 30-44 G4 Severl y decreased 15-29 G5 Kidney failure <15Reported eGF R is based on the CKD-EPI 2020 equation that d oes not use a race coefficientEsti mated GFR is not as accur ate as Creatinine Regina fara in predicting glom erular filtration rate . Estimated GFR is not appl icable for dialysis patien ts Strawhat Sizer ID - JANET MSpecimen moderately ictericBLOOD GAS, [id number] 14:24:43 Test Item Value Reference Range Interpretation Comments PH ARTERIAL (BEAKER) (test code = 7.46 7.35-7.45 H 383) PCO2 ARTERIAL (BEAKER) (test code 35 mm Hg 35-45 = 384) PO2 ARTERIAL (BEAKER) (test code = 141 mm Hg 80-90 H 385) O2 SATURATION ARTERIAL (BEAKER) 98.9 % 96.0-97.0 H (test code = 386) HCO3 ARTERIAL (BEAKER) (test code 24 mmol/L 21-29 = 388) BASE EXCESS ARTERIAL (BEAKER) 0.6 mmol/L -2.0-3.0 (test code = 387) PATIENT TEMPERATURE (BEAKER) (test 36.5 code = 1818) FIO2 (BEAKER) (test code = 1819) 21.0 CBC (HEMOGRAM ONLY)2022-05-17 14:21:26 Test Item Value Reference Range Interpretation Comments WHITE BLOOD CELL COUNT (BEAKER) 6.9 K/ L 3.5-10.5 (test code = 775) RED BLOOD CELL COUNT (BEAKER) 3.38 M/ L 3.93-5.22 L (test code = 761) HEMOGLOBIN (BEAKER) (test code = 10.0 GM/DL 11.2-15.7 L 410) HEMATOCRIT (BEAKER) (test code = 28.9 % 34.1-44.9 L 411) MEAN CORPUSCULAR VOLUME (BEAKER) 85.5 fL 79.4-94.8 (test code = 753) MEAN CORPUSCULAR HEMOGLOBIN 29.6 pg 25.6-32.2 (BEAKER) (test code = 751) MEAN CORPUSCULAR HEMOGLOBIN CONC 34.6 GM/DL 32.2-35.5 (BEAKER) (test code = 752) RED CELL DISTRIBUTION WIDTH 16.6 % 11.7-14.4 H (BEAKER) (test code = 412) PLATELET COUNT (BEAKER) (test code 76 K/CU MM 150-450 L = 756) MEAN PLATELET VOLUME (BEAKER) 11.0 fL 9.4-12.3 (test code = 754) NUCLEATED RED BLOOD CELLS (BEAKER) 0 /100 WBC 0-0 (test code = 413) POCT-GLUCOSE [id number] 12:15:46 Test Item Value Reference Range Interpretation Comments POC-GLUCOSE METER 121 mg/dL 70-110 H : TESTED A T [facility] 6720 (BEAKER) (test code = [place], 1538) [id number]: Strawhat Sizer/Techni daren ID = [id number] for HUMZA THERESAFIONA BOWERSLEY POCT-GLUCOSE [id number] 09:26:16 Test Item Value Reference Range Interpretation Comments POC-GLUCOSE METER 102 mg/dL 70-110 : TESTED A T [facility] 6720 (BEAKER) (test code = [facility], 1538) [address]: Strawhat Sizer/Techni daren ID = [id number] for BREN DURAND TACROLIMUS [id number] 09:07:51 Test Item Value Reference Range Interpretation Comments TACROLIMUS BLOOD (BEAKER) (test code < ng/mL 10.0-20.0 L = 657) Strawhat Sizer ID - ADMINPOCT-GLUCOSE [id number] 07:14:51 Test Item Value Reference Range Interpretation Comments POC-GLUCOSE METER 115 mg/dL 70-110 H : TESTED A T [facility] 6720 (BEAKER) (test code = [facility], 1538) [id number]: Strawhat Sizer/Techni daren ID = [id number] for BRADY SMALL BLOOD GAS, [id number] 06:57:08 Test Item Value Reference Range Interpretation Comments PH ARTERIAL (BEAKER) (test code = 7.52 7.35-7.45 H 383) PCO2 ARTERIAL (BEAKER) (test code 31 mm Hg 35-45 L = 384) PO2 ARTERIAL (BEAKER) (test code = 187 mm Hg 80-90 H 385) O2 SATURATION ARTERIAL (BEAKER) 99.4 % 96.0-97.0 H (test code = 386) HCO3 ARTERIAL (BEAKER) (test code 25 mmol/L 21-29 = 388) BASE EXCESS ARTERIAL (BEAKER) 1.9 mmol/L -2.0-3.0 (test code = 387) PATIENT TEMPERATURE (BEAKER) (test 35.7 code = 1818) FIO2 (BEAKER) (test code = 1819) 36.0 POCT-GLUCOSE [id number] 06:54:19 Test Item Value Reference Range Interpretation Comments POC-GLUCOSE METER 126 mg/dL 70-110 H : TESTED A T [facility] 6720 (BEAKER) (test code = [facility] Cuffed and Wanted [facility], 1538) [id number]: Strawhat Sizer/Techni daren ID = [id number] for BRADY SMALL POCT-GLUCOSE [id number] 05:05:03 Test Item Value Reference Range Interpretation Comments POC-GLUCOSE METER 121 mg/dL 70-110 H : TESTED A T [facility] 6720 (BEAKER) (test code = [place], 1538) [address]: Strawhat Sizer/Techni daren ID = [id number] for BRADY SMALL BLOOD GAS, [id number] 05:03:44 Test Item Value Reference Range Interpretation Comments PH ARTERIAL (BEAKER) (test code = 7.50 7.35-7.45 H 383) PCO2 ARTERIAL (BEAKER) (test code 35 mm Hg 35-45 = 384) PO2 ARTERIAL (BEAKER) (test code = 179 mm Hg 80-90 H 385) O2 SATURATION ARTERIAL (BEAKER) 99.4 % 96.0-97.0 H (test code = 386) HCO3 ARTERIAL (BEAKER) (test code 27 mmol/L 21-29 = 388) BASE EXCESS ARTERIAL (BEAKER) 3.2 mmol/L -2.0-3.0 H (test code = 387) PATIENT TEMPERATURE (BEAKER) (test 36.3 code = 1818) FIO2 (BEAKER) (test code = 1819) 40.0 CBC W/PLT COUNT & AUTO [id number] 02:55:09 Test Item Value Reference Range Interpretation Comments WHITE BLOOD CELL COUNT (BEAKER) 3.7 K/ L 3.5-10.5 (test code = 775) RED BLOOD CELL COUNT (BEAKER) 3.20 M/ L 3.93-5.22 L (test code = 761) HEMOGLOBIN (BEAKER) (test code = 9.3 GM/DL 11.2-15.7 L 410) HEMATOCRIT (BEAKER) (test code = 27.0 % 34.1-44.9 L 411) MEAN CORPUSCULAR VOLUME (BEAKER) 84.4 fL 79.4-94.8 (test code = 753) MEAN CORPUSCULAR HEMOGLOBIN 29.1 pg 25.6-32.2 (BEAKER) (test code = 751) MEAN CORPUSCULAR HEMOGLOBIN CONC 34.4 GM/DL 32.2-35.5 (BEAKER) (test code = 752) RED CELL DISTRIBUTION WIDTH 15.4 % 11.7-14.4 H (BEAKER) (test code = 412) PLATELET COUNT (BEAKER) (test code 69 K/CU MM 150-450 L = 756) MEAN PLATELET VOLUME (BEAKER) 9.8 fL 9.4-12.3 (test code = 754) NUCLEATED RED BLOOD CELLS (BEAKER) 1 /100 WBC 0-0 H (test code = 413) NEUTROPHILS RELATIVE PERCENT 81 % (BEAKER) (test code = 429) LYMPHOCYTES RELATIVE PERCENT 13 % (BEAKER) (test code = 430) MONOCYTES RELATIVE PERCENT 4 % (BEAKER) (test code = 431) EOSINOPHILS RELATIVE PERCENT 0 % (BEAKER) (test code = 432) BASOPHILS RELATIVE PERCENT 0 % (BEAKER) (test code = 437) NEUTROPHILS ABSOLUTE COUNT 3.01 K/ L 1.56-6.13 (BEAKER) (test code = 670) LYMPHOCYTES ABSOLUTE COUNT 0.49 K/ L 1.18-3.74 L (BEAKER) (test code = 414) MONOCYTES ABSOLUTE COUNT (BEAKER) 0.15 K/ L 0.24-0.36 L (test code = 415) EOSINOPHILS ABSOLUTE COUNT 0.00 K/ L 0.04-0.36 L (BEAKER) (test code = 416) BASOPHILS ABSOLUTE COUNT (BEAKER) 0.01 K/ L 0.01-0.08 (test code = 417) IMMATURE GRANULOCYTES-RELATIVE 2 % 0-1 H PERCENT (BEAKER) (test code = 2801) [id number] 02:54:24 Test Item Value Reference Range Interpretation Comments PARTIAL THROMBOPLASTIN TIME 33.7 seconds 22.5-36.0 (BEAKER) (test code = 760) PROTHROMBIN TIME/[id number] 02:53:45 Test Item Value Reference Range Interpretation Comments PROTIME (BEAKER) 14.3 seconds 11.9-14.2 H (test code = 759) INR (BEAKER) (test 1.18 See_Comment [Automat ed message] code = 370) The system [employer] generated this result transmitted ref erence range: <=5.90. The reference range was not used to int erpret this result as normal/abnormal . RECOMMENDED COUMADIN/WARFARIN INR THERAPY RANGESSTANDARD DOSE: 2.0 - 3.0 Includes: PROPHYLAXIS for venous thrombosis, systemic embolization; TREATMENT for venous thrombosis and/or pulmonary embolus.HIGH RISK: Target INR is 2.5-3.5 for patients with mechanical heart valves.BASIC METABOLIC [id number] 02:53:31 Test Item Value Reference Range Interpretation Comments SODIUM (BEAKER) 138 meq/L 136-145 (test code = 381) POTASSIUM 4.0 meq/L 3.5-5.1 Specimen slight ly (BEAKER) (test hemolyzed code = 379) CHLORIDE (BEAKER) 108 meq/L 98-107 H (test code = 382) CO2 (BEAKER) 25 meq/L 22-29 (test code = 355) BLOOD UREA 15 mg/dL 7-21 NITROGEN (BEAKER) (test code = 354) CREATININE 1.71 mg/dL 0.57-1.25 H Specimen slight ly (BEAKER) (test hemolyzed code = 358) GLUCOSE RANDOM 141 mg/dL 70-105 H (BEAKER) (test code = 652) CALCIUM (BEAKER) 8.7 mg/dL 8.4-10.2 (test code = 697) EGFR (BEAKER) 35 Interpretatio n of eGFR (test code = mL/min/1.73 values Stage D escription 1092) sq m Result G1 Stephanie l or high >=90 G2 Mildly decreased 60-89 G3a Mildl y to moderately 45-5 9 G3b Moderately to s everely 30-44 G4 Severl y decreased 15-29 G5 Kidney failure <15Reported eGF R is based on the CKD-EPI 2020 equation that d oes not use a race coefficientEsti mated GFR is not as accur ate as Creatinine Regina chaudhari in predicting glom erular filtration rate . Estimated GFR is not appl icable for dialysis patien ts Strawhat Sizer ID - PIAYA LSpecimen slightly ictericHEPATIC FUNCTION [id number] 02:53:31 Test Item Value Reference Range Interpretation Comments TOTAL PROTEIN (BEAKER) 4.4 gm/dL 6.0-8.3 L Speci men slightly (test code = 770) hemolyzed ALBUMIN (BEAKER) (test 2.4 g/dL 3.5-5.0 L Speci men slightly code = 1145) hemolyzed BILIRUBIN TOTAL 3.6 mg/dL 0.2-1.2 H Specimen sli ghtly (BEAKER) (test code = hemoly zed 377) BILIRUBIN DIRECT 2.3 mg/dL 0.1-0.5 H Specimen sl ightly (BEAKER) (test code = hemoly zed 706) ALKALINE PHOSPHATASE 49 U/L 40-150 (BEAKER) (test code = 346) AST (SGOT) (BEAKER) 411 U/L 5-34 H Specimen slightly (test code = 353) hemolyzed ALT (SGPT) (BEAKER) 399 U/L 6-55 H Specimen slightly (test code = 347) hemolyzed Strawhat Sizer ID - PISANDI LSpecimen slightly [id number] 02:53:30 Test Item Value Reference Range Interpretation Comments PHOSPHORUS (BEAKER) 1.9 mg/dL 2.3-4.7 L Specimen slightly (test code = 604) hemolyzed Strawhat Sizer ID - PISANDI [id number] 02:53:29 Test Item Value Reference Range Interpretation Comments MAGNESIUM (BEAKER) 1.7 mg/dL 1.6-2.6 Specimen slightly (test code = 627) hemolyzed Strawhat Sizer ID - MARCY LBLOOD GAS, [id number] 02:31:30 Test Item Value Reference Range Interpretation Comments PH ARTERIAL (BEAKER) (test code = 7.55 7.35-7.45 H 383) PCO2 ARTERIAL (BEAKER) (test code 30 mm Hg 35-45 L = 384) PO2 ARTERIAL (BEAKER) (test code = 169 mm Hg 80-90 H 385) O2 SATURATION ARTERIAL (BEAKER) 99.4 % 96.0-97.0 H (test code = 386) HCO3 ARTERIAL (BEAKER) (test code 26 mmol/L 21-29 = 388) BASE EXCESS ARTERIAL (BEAKER) 3.6 mmol/L -2.0-3.0 H (test code = 387) PATIENT TEMPERATURE (BEAKER) (test 36.7 code = 1818) FIO2 (BEAKER) (test code = 1819) 40.0 POCT-GLUCOSE [id number] 02:31:07 Test Item Value Reference Range Interpretation Comments POC-GLUCOSE METER 141 mg/dL 70-110 H : [facility] ([facility] (test code = [place], 1538) [address]: Strawhat Sizer/Techni daren ID = [id number] for BRADY SMALL CALCIUM, [id number] 02:29:44 Test Item Value Reference Range Interpretation Comments CALCIUM IONIZED (BEAKER) (test 1.21 mmol/L 1.12-1.27 code = 698) PH, BLOOD (BEAKER) (test code = 7.54 1810) RAD, CHEST, 1 VIEW, NON [id number] 01:59:00Reason for exam:->s/p OLTShould this be performed at the bedside?->Yes [facility] : 1965 Sex: FFINAL REPORT CLINICAL DATA: This patient had liver transplantation surgery. COMPARISON: May 16, 2022. TECHNIQUE: A single AP semiupright portable chest image was done. FINDINGS: The endotracheal tube tip ends about 3.3 cm above the redd. A nasogastric tube is in place. A right internal jugular central line tip ends in the right atrium about 3 to 4 cm below the junction with the superior vena cava. Mediastinal drains are still in place. Surgical aayush are seen in the left abdomen.A left sided central line is also present with tip ending in the superior vena cava near the azygos arch level. No developing pneumothorax is seen. The heart is normal in size. There is edema and each lung base. Some pleural fluid is not ruled out. IMPRESSION:1. Likely persistent bibasilar edema slightly worse than yesterday afternoon.2. The patient remains intubated.3. A nasogastric tube and mediastinal drains and bilateral central lines are in place.4. No developing pneumothorax is seen. The studydoes not rule out mild pleural fluid, though. Signed: Josue Melchor MDReport Verified Date/Time: 05/17/2022 01:59:44 POCT-GLUCOSE [id number] 23:02:41 Test Item Value Reference Range Interpretation Comments POC-GLUCOSE METER 161 mg/dL 70-110 H : TESTED A T [facility] 6720 (BEAKER) (test code = [place], 1538) [address]: Strawhat Sizer/Techni daren ID = [id number] for BRADY SMALL BLOOD GAS, [id number] 22:55:57 Test Item Value Reference Range Interpretation Comments PH ARTERIAL (BEAKER) (test code = 7.58 7.35-7.45 H 383) PCO2 ARTERIAL (BEAKER) (test code 29 mm Hg 35-45 L = 384) PO2 ARTERIAL (BEAKER) (test code = 151 mm Hg 80-90 H 385) O2 SATURATION ARTERIAL (BEAKER) 99.3 % 96.0-97.0 H (test code = 386) HCO3 ARTERIAL (BEAKER) (test code 26 mmol/L 21-29 = 388) BASE EXCESS ARTERIAL (BEAKER) 4.1 mmol/L -2.0-3.0 H (test code = 387) PATIENT TEMPERATURE (BEAKER) (test 35.7 code = 1818) FIO2 (BEAKER) (test code = 1819) 40.0 LACTIC ACID, [id number] 20:54:32 Test Item Value Reference Range Interpretation Comments LACTATE BLOOD ARTERIAL (2) 0.9 mmol/L 0.5-2.2 (BEAKER) (test code = 2874) Strawhat Sizer ID - BSSpecimen slightly ictericpH, [id number] 20:33:26 Test Item Value Reference Range Interpretation Comments pH, Arterial (test code = 2744-1) 7.63 7.35-7.45 HH Lab Interpretation (test code = Abnormal 32583-5) [facility] [id number] 20:33:26 Test Item Value Reference Range Interpretation Comments pH, Arterial (test code = 2744-1) 7.63 7.35-7.45 HH Lab Interpretation (test code = Abnormal 78252-3) [facility], [id number] 20:33:26 Test Item Value Reference Range Interpretation Comments PH ARTERIAL (BEAKER) (test code = 383) 7.63 7.35-7.45 HH HGB/HCT (H&H)-Stat [id number] 20:33:24 Test Item Value Reference Range Interpretation Comments Hemoglobin (test code = 10.7 See_Comment L [Au tomated message] 786-4) The system [employer] generated this result transmitted ref erence range: 12.0 - 1 5.0 GM/DL. The refe rence range was not u sed to interpret this result as normal/abnor mal. Hematocrit (test code = 31.0 % 36.0-45.0 L 4544-3) Lab Interpretation (test Abnormal code = 94918-4) [facility]Stat [id number] 20:33:24 Test Item Value Reference Range Interpretation Comments Hemoglobin (test code = 10.7 See_Comment L [Au tomated message] 786-4) The system [employer] generated this result transmitted ref erence range: 12.0 - 1 5.0 GM/DL. The refe rence range was not u sed to interpret this result as normal/abnor mal. Hematocrit (test code = 31.0 % 36.0-45.0 L 4544-3) Lab Interpretation (test Abnormal code = 00144-8) [facility] - STAT [id number] 20:33:24 Test Item Value Reference Range Interpretation Comments HEMOGLOBIN (BEAKER) (test code = 10.7 GM/DL 12.0-15.0 L 410) HEMATOCRIT (BEAKER) (test code = 31.0 % 36.0-45.0 L 411) Glucose-Stat [id number] 20:33:23 Test Item Value Reference Range Interpretation Comments Glucose (test code = 2345-7) 174 mg/dL 70-110 H Lab Interpretation (test code = Abnormal 16236-8) [facility] [id number] 20:33:23 Test Item Value Reference Range Interpretation Comments Glucose (test code = 2345-7) 174 mg/dL 70-110 H Lab Interpretation (test code = Abnormal 95321-1) [facility] CenterBL[facility]OD [facility]AS, [id number] 20:33:23 Test Item Value Reference Range Interpretation Comments PH ARTERIAL (BEAKER) (test code = 7.63 7.35-7.45 HH 383) PCO2 ARTERIAL (BEAKER) (test code 23 mm Hg 35-45 L = 384) PO2 ARTERIAL (BEAKER) (test code = 164 mm Hg 80-90 H 385) O2 SATURATION ARTERIAL (BEAKER) 99.4 % 96.0-97.0 H (test code = 386) HCO3 ARTERIAL (BEAKER) (test code 24 mmol/L 21-29 = 388) BASE EXCESS ARTERIAL (BEAKER) 3.1 mmol/L -2.0-3.0 H (test code = 387) PATIENT TEMPERATURE (BEAKER) (test 35.8 code = 1818) FIO2 (BEAKER) (test code = 1819) 40.0 GLUCOSE-STAT [id number] 20:33:23 Test Item Value Reference Range Interpretation Comments GLUCOSE RANDOM (BEAKER) (test code 174 mg/dL 70-110 H = 652) CALCIUM, [id number] 20:31:54 Test Item Value Reference Range Interpretation Comments CALCIUM IONIZED (BEAKER) (test 1.22 mmol/L 1.12-1.27 code = 698) PH, BLOOD (BEAKER) (test code = 7.61 1810) Potassium-Stat [id number] 20:31:31 Test Item Value Reference Range Interpretation Comments Potassium (test code = 2823-3) 3.8 meq/L 3.6-5.5 Lab Interpretation (test code = Normal 66518-8) [facility] [id number] 20:31:31 Test Item Value Reference Range Interpretation Comments Potassium (test code = 2823-3) 3.8 meq/L 3.6-5.5 Lab Interpretation (test code = Normal 24506-1) [facility] CenterPOTASSIUM-STAT [id number] 20:31:31 Test Item Value Reference Range Interpretation Comments POTASSIUM (BEAKER) (test code = 3.8 meq/L 3.6-5.5 379) Sodium Na-Stat [id number] 20:31:30 Test Item Value Reference Range Interpretation Comments Sodium (test code = 2951-2) 138 meq/L 136-145 Lab Interpretation (test code = Normal 26180-4) [facility] [id number] 20:31:30 Test Item Value Reference Range Interpretation Comments Sodium (test code = 2951-2) 138 meq/L 136-145 Lab Interpretation (test code = Normal 91942-5) [facility] [id number] 20:31:30 Test Item Value Reference Range Interpretation Comments SODIUM (BEAKER) (test code = 381) 138 meq/L 136-145 POCT-GLUCOSE [id number] 18:44:49 Test Item Value Reference Range Interpretation Comments POC-GLUCOSE METER 194 mg/dL 70-110 H : TESTED A T [facility] 6720 (BEAKER) (test code = [place], 1538) [address]: Strawhat Sizer/Techni daren ID = [id number] for BREN DURAND LACTIC ACID, [id number] 17:40:55 Test Item Value Reference Range Interpretation Comments LACTATE BLOOD ARTERIAL (2) 1.0 mmol/L 0.5-2.2 (BEAKER) (test code = 2874) Strawhat Sizer ID - BSSpecimen slightly ictericGLUCOSE-STAT [id number] 17:12:14 Test Item Value Reference Range Interpretation Comments GLUCOSE RANDOM (BEAKER) (test code 193 mg/dL 70-110 H = 652) HGB/HCT (H&H) - STAT [id number] 17:12:14 Test Item Value Reference Range Interpretation Comments HEMOGLOBIN (BEAKER) (test code = 10.3 GM/DL 12.0-15.0 L 410) HEMATOCRIT (BEAKER) (test code = 30.0 % 36.0-45.0 L 411) BLOOD GAS, [id number] 17:12:13 Test Item Value Reference Range Interpretation Comments PH ARTERIAL (BEAKER) (test code = 7.59 7.35-7.45 H 383) PCO2 ARTERIAL (BEAKER) (test code 26 mm Hg 35-45 L = 384) PO2 ARTERIAL (BEAKER) (test code = 173 mm Hg 80-90 H 385) O2 SATURATION ARTERIAL (BEAKER) 99.4 % 96.0-97.0 H (test code = 386) HCO3 ARTERIAL (BEAKER) (test code 25 mmol/L 21-29 = 388) BASE EXCESS ARTERIAL (BEAKER) 3.2 mmol/L -2.0-3.0 H (test code = 387) PATIENT TEMPERATURE (BEAKER) (test 36.2 code = 1818) FIO2 (BEAKER) (test code = 1819) 40.0 POTASSIUM-STAT [id number] 17:12:07 Test Item Value Reference Range Interpretation Comments POTASSIUM (BEAKER) (test code = 3.5 meq/L 3.6-5.5 L 379) SODIUM NA-STAT [id number] 17:12:06 Test Item Value Reference Range Interpretation Comments SODIUM (BEAKER) (test code = 381) 142 meq/L 136-145 POCT-GLUCOSE [id number] 16:34:53 Test Item Value Reference Range Interpretation Comments POC-GLUCOSE METER 199 mg/dL 70-110 H : TESTED A T [facility] 6720 (BEAKER) (test code = [place], 1538) [address]: Strawhat Sizer/Techni daren ID = [id number] for BREN DURAND BASIC METABOLIC [id number] 15:53:44 Test Item Value Reference Range Interpretation Comments SODIUM (BEAKER) 146 meq/L 136-145 H (test code = 381) POTASSIUM 4.2 meq/L 3.5-5.1 Specimen slight ly (BEAKER) (test hemolyzed code = 379) CHLORIDE (BEAKER) 115 meq/L 98-107 H (test code = 382) CO2 (BEAKER) 26 meq/L 22-29 (test code = 355) BLOOD UREA 19 mg/dL 7-21 NITROGEN (BEAKER) (test code = 354) CREATININE 2.59 mg/dL 0.57-1.25 H Specimen slight ly (BEAKER) (test hemolyzed code = 358) GLUCOSE RANDOM 220 mg/dL 70-105 H (BEAKER) (test code = 652) CALCIUM (BEAKER) 9.5 mg/dL 8.4-10.2 (test code = 697) EGFR (BEAKER) 21 Interpretatio n of eGFR (test code = mL/min/1.73 values Stage De scription 1092) sq m Result G1 Stephanie l or high >=90 G2 Mildly decreased 60-89 G3a Mildl y to moderately 45-5 9 G3b Moderately to s everely 30-44 G4 Severl y decreased 15-29 G5 Kidney failure <15Reported eGF R is based on the CKD-EPI 2020 equation that d oes not use a race coefficientEsti mated GFR is not as accur ate as Creatinine Regina chaudhari in predicting glom erular filtration rate . Estimated GFR is not appl icable for dialysis patien ts Strawhat Sizer ID - BSSpecimen slightly [id number] 15:50:47 Test Item Value Reference Range Interpretation Comments MAGNESIUM (BEAKER) 1.4 mg/dL 1.6-2.6 L Specimen slightly (test code = 627) hemolyzed Strawhat Sizer ID - [id number] 15:50:47 Test Item Value Reference Range Interpretation Comments PHOSPHORUS (BEAKER) 3.6 mg/dL 2.3-4.7 Specimen slightly (test code = 604) hemolyzed Strawhat Sizer ID - BSLACTIC ACID, [id number] 15:44:04 Test Item Value Reference Range Interpretation Comments LACTATE BLOOD 1.4 mmol/L 0.5-2.2 Specimen sligh tly ARTERIAL (2) (BEAKER) hemoly zed (test code = 2874) Strawhat Sizer ID - BSSpecimen slightly ictericRAD, CHEST, 1 VIEW, NON [id number] 15:42:00Reason for exam:->post opShould this be performed at the bedside?->YesERIK[facility] : 1965 Sex: FFINAL REPORT Chest, 1 view. History: Postop. Comparison: 05/14/2022. IMPRESSION: Endotracheal tube identified with tip terminating 5 cm above the redd. Suspected left IJ venous catheter identified with tip terminating over the SVC. Right IJ tunneled dialysis catheter identified in stableposition. Right-sided chest tube identified in place. Suspected surgical drain noted projecting overthe right upper hemithorax and right neck. Enteric tube noted coursing below the diaphragm. There ismild bibasilar atelectasis. Mildly increased interstitial markings noted bilaterally. There is no evidence for large focal consolidation, pneumothorax, or significant volume pleural effusion. The cardiomediastinal silhouette is stable in appearance. No acute osseous abdomen normality is identified. Signed: Bruno Chirinos MDReport Verified Date/Time: 05/16/2022 15:42:49 Reading Location: [address] Transitional Reading Room [id number] 15:38:00 Test Item Value Reference Range Interpretation Comments FIBRINOGEN LEVEL (BEAKER) (test 265 mg/dl 225-434 code = 658) [id number] 15:24:34 Test Item Value Reference Range Interpretation Comments PROTIME (BEAKER) (test 18.0 seconds 11.9-14.2 H code = 759) INR (BEAKER) (test 1.59 See_Comment [Automat ed code = 370) message] The sy stem which generated this result transmitted reference range : <=5.90. The reference range was not used to interpret this result as normal/abnormal . PARTIAL THROMBOPLASTIN 42.0 seconds 22.5-36.0 H TIME (BEAKER) (test code = 760) RECOMMENDED COUMADIN/WARFARIN INR THERAPY RANGESSTANDARD DOSE: 2.0 - 3.0 Includes: PROPHYLAXIS for venous thrombosis, systemic embolization; TREATMENT for venous thrombosis and/or pulmonary embolus.HIGH RISK: Target INR is 2.5-3.5 for patients with mechanical heart valves.CBC (HEMOGRAM ONLY)2022-05-16 15:23:11 Test Item Value Reference Range Interpretation Comments WHITE BLOOD CELL COUNT (BEAKER) 2.3 K/ L 3.5-10.5 L (test code = 775) RED BLOOD CELL COUNT (BEAKER) 3.03 M/ L 3.93-5.22 L (test code = 761) HEMOGLOBIN (BEAKER) (test code = 9.4 GM/DL 11.2-15.7 L 410) HEMATOCRIT (BEAKER) (test code = 26.3 % 34.1-44.9 L 411) MEAN CORPUSCULAR VOLUME (BEAKER) 86.8 fL 79.4-94.8 (test code = 753) MEAN CORPUSCULAR HEMOGLOBIN 31.0 pg 25.6-32.2 (BEAKER) (test code = 751) MEAN CORPUSCULAR HEMOGLOBIN CONC 35.7 GM/DL 32.2-35.5 H (BEAKER) (test code = 752) RED CELL DISTRIBUTION WIDTH 15.6 % 11.7-14.4 H (BEAKER) (test code = 412) PLATELET COUNT (BEAKER) (test 110 K/CU MM 150-450 L code = 756) MEAN PLATELET VOLUME (BEAKER) 10.1 fL 9.4-12.3 (test code = 754) NUCLEATED RED BLOOD CELLS 0 /100 WBC 0-0 (BEAKER) (test code = 413) BLOOD GAS, [id number] 15:11:37 Test Item Value Reference Range Interpretation Comments PH ARTERIAL (BEAKER) (test code = 7.51 7.35-7.45 H 383) PCO2 ARTERIAL (BEAKER) (test code 31 mm Hg 35-45 L = 384) PO2 ARTERIAL (BEAKER) (test code = 217 mm Hg 80-90 H 385) O2 SATURATION ARTERIAL (BEAKER) 99.6 % 96.0-97.0 H (test code = 386) HCO3 ARTERIAL (BEAKER) (test code 24 mmol/L 21-29 = 388) BASE EXCESS ARTERIAL (BEAKER) 1.6 mmol/L -2.0-3.0 (test code = 387) PATIENT TEMPERATURE (BEAKER) (test 36.9 code = 1818) FIO2 (BEAKER) (test code = 1819) 60.0 HGB/HCT (H&H) - STAT [id number] 15:11:35 Test Item Value Reference Range Interpretation Comments HEMOGLOBIN (BEAKER) (test code = 10.1 GM/DL 12.0-15.0 L 410) HEMATOCRIT (BEAKER) (test code = 30.0 % 36.0-45.0 L 411) GLUCOSE-STAT [id number] 15:11:34 Test Item Value Reference Range Interpretation Comments GLUCOSE RANDOM (BEAKER) (test code 221 mg/dL 70-110 H = 652) CALCIUM, [id number] 15:11:18 Test Item Value Reference Range Interpretation Comments CALCIUM IONIZED (BEAKER) (test 1.26 mmol/L 1.12-1.27 code = 698) PH, BLOOD (BEAKER) (test code = 7.51 1810) POTASSIUM-STAT [id number] 15:11:17 Test Item Value Reference Range Interpretation Comments POTASSIUM (BEAKER) (test code = 3.7 meq/L 3.6-5.5 379) SODIUM NA-STAT [id number] 15:11:16 Test Item Value Reference Range Interpretation Comments SODIUM (BEAKER) (test code = 381) 141 meq/L 136-145 OXYGEN SATURATION, [id number] 15:10:34 Test Item Value Reference Range Interpretation Comments O2 SATURATION (MEASURED) (BEAKER) 89.5 % (test code = 1455) HEPATITIS B PCR, [id number] 15:06:00 Test Item Value Reference Range Interpretation Comments HBV RESULT COMPONENT HBV DNA not detected HBV DNA not detected (BEAKER) (test code = 2701) This test uses a Real-Time Polymerase Chain Reaction (RT-PCR) methodology and was performed using [employer] AmpliPrep/BAMBI TaqMan HBV Test, v2.0 ([employer]Reportable range for this assay is 20 - 170,000,000 IU per mL (1.30 - 8.23 Log IU/mL).HEPATITIS C PCR, [id number] 14:56:54 Test Item Value Reference Range Interpretation Comments HCV RESULT COMPONENT HCV RNA not detected HCV RNA not detected (BEAKER) (test code = 2699) This test uses a Real-Time Polymerase Chain Reaction (RT-PCR) methodology and was performed using [employer] Ampliprep/BAMBI TaqMan HCV test kit version 2.0 ([employer]Reportable range for this assay is 15 - 100,000,000 IU per mL (1.18 - 8.00 Log IU/mL).CALCIUM, [id number] 13:53:53 Test Item Value Reference Range Interpretation Comments CALCIUM IONIZED (BEAKER) (test 1.23 mmol/L 1.12-1.27 code = 698) PH, BLOOD (BEAKER) (test code = 7.43 1810) HGB/HCT (H&H) - STAT [id number] 13:52:37 Test Item Value Reference Range Interpretation Comments HEMOGLOBIN (BEAKER) (test code = 9.3 GM/DL 12.0-15.0 L 410) HEMATOCRIT (BEAKER) (test code = 27.0 % 36.0-45.0 L 411) GLUCOSE-STAT [id number] 13:52:31 Test Item Value Reference Range Interpretation Comments GLUCOSE RANDOM (BEAKER) (test code 225 mg/dL 70-110 H = 652) BLOOD GAS, [id number] 13:52:24 Test Item Value Reference Range Interpretation Comments PH ARTERIAL (BEAKER) (test code = 7.45 7.35-7.45 383) PCO2 ARTERIAL (BEAKER) (test code 38 mm Hg 35-45 = 384) PO2 ARTERIAL (BEAKER) (test code = 366 mm Hg 80-90 H 385) O2 SATURATION ARTERIAL (BEAKER) 99.8 % 96.0-97.0 H (test code = 386) HCO3 ARTERIAL (BEAKER) (test code 26 mmol/L 21-29 = 388) BASE EXCESS ARTERIAL (BEAKER) 1.9 mmol/L -2.0-3.0 (test code = 387) PATIENT TEMPERATURE (BEAKER) (test 35.6 code = 1818) FIO2 (BEAKER) (test code = 1819) 100.0 POTASSIUM-STAT [id number] 13:52:13 Test Item Value Reference Range Interpretation Comments POTASSIUM (BEAKER) (test code = 3.5 meq/L 3.6-5.5 L 379) SODIUM NA-STAT [id number] 13:52:12 Test Item Value Reference Range Interpretation Comments SODIUM (BEAKER) (test code = 381) 143 meq/L 136-145 [id number] 13:27:45 Test Item Value Reference Range Interpretation Comments PARTIAL THROMBOPLASTIN TIME 105.9 seconds 22.5-36.0 H (BEAKER) (test code = 760) Platelet [id number] 13:20:18 Test Item Value Reference Range Interpretation Comments Platelets (test code 128 See_Comment L Discord ant from = 777-3) previous result s. Clinical correlation suggested. [Automated message] The system which generated this result transmit kevin reference range : 150 - 450 K/CU MM. The reference range was not u sed to interpret th is result as normal/abnormal . ADRIA (test code = ADRIA) Strawhat Sizer ID - [id number] Lab Interpretation Abnormal (test code = 44762-9) [id number] 13:20:18 Test Item Value Reference Range Interpretation Comments Platelets (test code 128 See_Comment L Discord ant from = 777-3) previous result s. Clinical correlation suggested. [Automated message] The system which generated this result transmit kevin reference range : 150 - 450 K/CU MM. The reference range was not u sed to interpret th is result as normal/abnormal . ADRIA (test code = ADRIA) Strawhat Sizer ID - [id number] Lab Interpretation Abnormal (test code = 83835-4) [facility] [id number] 13:20:18 Test Item Value Reference Range Interpretation Comments PLATELET COUNT 128 K/CU MM 150-450 L Discordant fr om (BEAKER) (test code previous results. = 756) Clinical correl ation suggested. Strawhat Sizer ID - [id number] 13:20:01 Test Item Value Reference Range Interpretation Comments FIBRINOGEN LEVEL (BEAKER) (test 246 mg/dl 225-434 code = 658) HGB/HCT (H&H) - STAT [id number] 13:19:59 Test Item Value Reference Range Interpretation Comments HEMOGLOBIN (BEAKER) (test code = 9.2 GM/DL 12.0-15.0 L 410) HEMATOCRIT (BEAKER) (test code = 27.0 % 36.0-45.0 L 411) GLUCOSE-STAT [id number] 13:19:53 Test Item Value Reference Range Interpretation Comments GLUCOSE RANDOM (BEAKER) (test code 233 mg/dL 70-110 H = 652) BLOOD GAS, [id number] 13:19:47 Test Item Value Reference Range Interpretation Comments PH ARTERIAL (BEAKER) (test code = 7.43 7.35-7.45 383) PCO2 ARTERIAL (BEAKER) (test code 39 mm Hg 35-45 = 384) PO2 ARTERIAL (BEAKER) (test code = 440 mm Hg 80-90 H 385) O2 SATURATION ARTERIAL (BEAKER) 99.9 % 96.0-97.0 H (test code = 386) HCO3 ARTERIAL (BEAKER) (test code 25 mmol/L 21-29 = 388) BASE EXCESS ARTERIAL (BEAKER) 0.4 mmol/L -2.0-3.0 (test code = 387) PATIENT TEMPERATURE (BEAKER) (test 35.1 code = 1818) FIO2 (BEAKER) (test code = 1819) 100.0 CALCIUM, [id number] 13:19:29 Test Item Value Reference Range Interpretation Comments CALCIUM IONIZED (BEAKER) (test 1.17 mmol/L 1.12-1.27 code = 698) PH, BLOOD (BEAKER) (test code = 7.40 1810) PROTHROMBIN [id number] 13:19:23 Test Item Value Reference Range Interpretation Comments PROTIME (BEAKER) 22.6 seconds 11.9-14.2 H (test code = 759) INR (BEAKER) (test 2.06 See_Comment [Automat ed message] code = 370) The system [employer] generated this result transmitted ref erence range: <=5.90. The reference range was not used to int erpret this result as normal/abnormal . RECOMMENDED COUMADIN/WARFARIN INR THERAPY RANGESSTANDARD DOSE: 2.0 - 3.0 Includes: PROPHYLAXIS for venous thrombosis, systemic embolization; TREATMENT for venous thrombosis and/or pulmonary embolus.HIGH RISK: Target INR is 2.5-3.5 for patients with mechanical heart valves.POTASSIUM-STAT [id number] 13:18:23 Test Item Value Reference Range Interpretation Comments POTASSIUM (BEAKER) (test code = 3.8 meq/L 3.6-5.5 379) SODIUM NA-STAT [id number] 13:18:22 Test Item Value Reference Range Interpretation Comments SODIUM (BEAKER) (test code = 381) 142 meq/L 136-145 HGB/HCT (H&H) - STAT [id number] 12:54:43 Test Item Value Reference Range Interpretation Comments HEMOGLOBIN (BEAKER) (test code = 6.7 GM/DL 12.0-15.0 L 410) HEMATOCRIT (BEAKER) (test code = 20.0 % 36.0-45.0 L 411) GLUCOSE-STAT [id number] 12:54:37 Test Item Value Reference Range Interpretation Comments GLUCOSE RANDOM (BEAKER) (test code 203 mg/dL 70-110 H = 652) CALCIUM, [id number] 12:54:32 Test Item Value Reference Range Interpretation Comments CALCIUM IONIZED (BEAKER) (test 0.97 mmol/L 1.12-1.27 L code = 698) PH, BLOOD (BEAKER) (test code = 7.45 1810) BLOOD GAS, [id number] 12:54:32 Test Item Value Reference Range Interpretation Comments PH ARTERIAL (BEAKER) (test code = 7.49 7.35-7.45 H 383) PCO2 ARTERIAL (BEAKER) (test code 33 mm Hg 35-45 L = 384) PO2 ARTERIAL (BEAKER) (test code = 315 mm Hg 80-90 H 385) O2 SATURATION ARTERIAL (BEAKER) 99.8 % 96.0-97.0 H (test code = 386) HCO3 ARTERIAL (BEAKER) (test code 26 mmol/L 21-29 = 388) BASE EXCESS ARTERIAL (BEAKER) 1.5 mmol/L -2.0-3.0 (test code = 387) PATIENT TEMPERATURE (BEAKER) (test 34.5 code = 1818) FIO2 (BEAKER) (test code = 1819) 100.0 POTASSIUM-STAT [id number] 12:54:05 Test Item Value Reference Range Interpretation Comments POTASSIUM (BEAKER) (test code = 3.3 meq/L 3.6-5.5 L 379) SODIUM NA-STAT [id number] 12:52:51 Test Item Value Reference Range Interpretation Comments SODIUM (BEAKER) (test code = 381) 142 meq/L 136-145 CALCIUM, [id number] 12:10:30 Test Item Value Reference Range Interpretation Comments CALCIUM IONIZED (BEAKER) (test 1.03 mmol/L 1.12-1.27 L code = 698) PH, BLOOD (BEAKER) (test code = 7.33 1810) POTASSIUM-STAT [id number] 12:09:49 Test Item Value Reference Range Interpretation Comments POTASSIUM (BEAKER) (test code = 3.3 meq/L 3.6-5.5 L 379) HGB/HCT (H&H) - STAT [id number] 12:09:42 Test Item Value Reference Range Interpretation Comments HEMOGLOBIN (BEAKER) (test code = 8.6 GM/DL 12.0-15.0 L 410) HEMATOCRIT (BEAKER) (test code = 25.0 % 36.0-45.0 L 411) GLUCOSE-STAT [id number] 12:09:35 Test Item Value Reference Range Interpretation Comments GLUCOSE RANDOM (BEAKER) (test code 211 mg/dL 70-110 H = 652) BLOOD GAS, [id number] 12:09:28 Test Item Value Reference Range Interpretation Comments PH ARTERIAL (BEAKER) (test code = 7.37 7.35-7.45 383) PCO2 ARTERIAL (BEAKER) (test code 39 mm Hg 35-45 = 384) PO2 ARTERIAL (BEAKER) (test code 370 mm Hg 80-90 H = 385) O2 SATURATION ARTERIAL (BEAKER) 99.8 % 96.0-97.0 H (test code = 386) HCO3 ARTERIAL (BEAKER) (test code 23 mmol/L 21-29 = 388) BASE EXCESS ARTERIAL (BEAKER) -2.8 mmol/L -2.0-3.0 L (test code = 387) PATIENT TEMPERATURE (BEAKER) 34.2 (test code = 1818) FIO2 (BEAKER) (test code = 1819) 100.0 SODIUM NA-STAT [id number] 12:08:59 Test Item Value Reference Range Interpretation Comments SODIUM (BEAKER) (test code = 381) 142 meq/L 136-145 [id number] 11:50:36 Test Item Value Reference Range Interpretation Comments FIBRINOGEN LEVEL (BEAKER) (test code < mg/dl 225-434 LL = 658) [id number] 11:50:35 Test Item Value Reference Range Interpretation Comments PARTIAL THROMBOPLASTIN TIME 163.4 seconds 22.5-36.0 HH (BEAKER) (test code = 760) CALCIUM, [id number] 11:32:29 Test Item Value Reference Range Interpretation Comments CALCIUM IONIZED (BEAKER) (test 1.19 mmol/L 1.12-1.27 code = 698) PH, BLOOD (BEAKER) (test code = 7.36 1810) POTASSIUM-STAT [id number] 11:31:51 Test Item Value Reference Range Interpretation Comments POTASSIUM (BEAKER) (test code = 3.1 meq/L 3.6-5.5 L 379) HGB/HCT (H&H) - STAT [id number] 11:31:40 Test Item Value Reference Range Interpretation Comments HEMOGLOBIN (BEAKER) (test code = 8.6 GM/DL 12.0-15.0 L 410) HEMATOCRIT (BEAKER) (test code = 25.0 % 36.0-45.0 L 411) GLUCOSE-STAT [id number] 11:31:34 Test Item Value Reference Range Interpretation Comments GLUCOSE RANDOM (BEAKER) (test code 202 mg/dL 70-110 H = 652) BLOOD GAS, [id number] 11:31:23 Test Item Value Reference Range Interpretation Comments PH ARTERIAL (BEAKER) (test code = 7.40 7.35-7.45 383) PCO2 ARTERIAL (BEAKER) (test code 36 mm Hg 35-45 = 384) PO2 ARTERIAL (BEAKER) (test code 342 mm Hg 80-90 H = 385) O2 SATURATION ARTERIAL (BEAKER) 99.8 % 96.0-97.0 H (test code = 386) HCO3 ARTERIAL (BEAKER) (test code 22 mmol/L 21-29 = 388) BASE EXCESS ARTERIAL (BEAKER) -3.0 mmol/L -2.0-3.0 L (test code = 387) PATIENT TEMPERATURE (BEAKER) 34.0 (test code = 1818) FIO2 (BEAKER) (test code = 1819) 100.0 SODIUM NA-STAT [id number] 11:31:11 Test Item Value Reference Range Interpretation Comments SODIUM (BEAKER) (test code = 381) 141 meq/L 136-145 PLATELET [id number] 11:29:13 Test Item Value Reference Range Interpretation Comments PLATELET COUNT (BEAKER) (test code 9 K/CU MM 150-450 LL = 756) Strawhat Sizer ID - [id number] ID - [id number] 11:24:29 Test Item Value Reference Range Interpretation Comments PROTIME (BEAKER) 34.4 seconds 11.9-14.2 H (test code = 759) INR (BEAKER) (test 3.55 See_Comment [Automat ed message] code = 370) The system [employer] generated this result transmitted ref erence range: <=5.90. The reference range was not used to int erpret this result as normal/abnormal . RECOMMENDED COUMADIN/WARFARIN INR THERAPY RANGESSTANDARD DOSE: 2.0 - 3.0 Includes: PROPHYLAXIS for venous thrombosis, systemic embolization; TREATMENT for venous thrombosis and/or pulmonary embolus.HIGH RISK: Target INR is 2.5-3.5 for patients with mechanical heart valves.CALCIUM, [id number] 11:11:00 Test Item Value Reference Range Interpretation Comments CALCIUM IONIZED (BEAKER) (test 1.23 mmol/L 1.12-1.27 code = 698) PH, BLOOD (BEAKER) (test code = 7.33 1810) POTASSIUM-STAT [id number] 11:10:23 Test Item Value Reference Range Interpretation Comments POTASSIUM (BEAKER) (test code = 3.1 meq/L 3.6-5.5 L 379) HGB/HCT (H&H) - STAT [id number] 11:10:17 Test Item Value Reference Range Interpretation Comments HEMOGLOBIN (BEAKER) (test code = 8.6 GM/DL 12.0-15.0 L 410) HEMATOCRIT (BEAKER) (test code = 25.0 % 36.0-45.0 L 411) GLUCOSE-STAT [id number] 11:10:09 Test Item Value Reference Range Interpretation Comments GLUCOSE RANDOM (BEAKER) (test code 197 mg/dL 70-110 H = 652) BLOOD GAS, [id number] 11:09:58 Test Item Value Reference Range Interpretation Comments PH ARTERIAL (BEAKER) (test code = 7.38 7.35-7.45 383) PCO2 ARTERIAL (BEAKER) (test code 36 mm Hg 35-45 = 384) PO2 ARTERIAL (BEAKER) (test code 343 mm Hg 80-90 H = 385) O2 SATURATION ARTERIAL (BEAKER) 99.7 % 96.0-97.0 H (test code = 386) HCO3 ARTERIAL (BEAKER) (test code 22 mmol/L 21-29 = 388) BASE EXCESS ARTERIAL (BEAKER) -4.0 mmol/L -2.0-3.0 L (test code = 387) PATIENT TEMPERATURE (BEAKER) 33.6 (test code = 1818) FIO2 (BEAKER) (test code = 1819) 100.0 SODIUM NA-STAT [id number] 11:09:41 Test Item Value Reference Range Interpretation Comments SODIUM (BEAKER) (test code = 381) 140 meq/L 136-145 CALCIUM, [id number] 10:40:58 Test Item Value Reference Range Interpretation Comments CALCIUM IONIZED (BEAKER) (test 1.44 mmol/L 1.12-1.27 H code = 698) PH, BLOOD (BEAKER) (test code = 7.34 1810) POTASSIUM-STAT [id number] 10:40:15 Test Item Value Reference Range Interpretation Comments POTASSIUM (BEAKER) (test code = 5.6 meq/L 3.6-5.5 H 379) HGB/HCT (H&H) - STAT [id number] 10:39:59 Test Item Value Reference Range Interpretation Comments HEMOGLOBIN (BEAKER) (test code = 8.9 GM/DL 12.0-15.0 L 410) HEMATOCRIT (BEAKER) (test code = 26.0 % 36.0-45.0 L 411) GLUCOSE-STAT [id number] 10:39:52 Test Item Value Reference Range Interpretation Comments GLUCOSE RANDOM (BEAKER) (test code 202 mg/dL 70-110 H = 652) BLOOD GAS, [id number] 10:39:46 Test Item Value Reference Range Interpretation Comments PH ARTERIAL (BEAKER) (test code = 7.39 7.35-7.45 383) PCO2 ARTERIAL (BEAKER) (test code 35 mm Hg 35-45 = 384) PO2 ARTERIAL (BEAKER) (test code 319 mm Hg 80-90 H = 385) O2 SATURATION ARTERIAL (BEAKER) 99.7 % 96.0-97.0 H (test code = 386) HCO3 ARTERIAL (BEAKER) (test code 22 mmol/L 21-29 = 388) BASE EXCESS ARTERIAL (BEAKER) -3.9 mmol/L -2.0-3.0 L (test code = 387) PATIENT TEMPERATURE (BEAKER) 33.5 (test code = 1818) FIO2 (BEAKER) (test code = 1819) 100.0 SODIUM NA-STAT [id number] 10:39:30 Test Item Value Reference Range Interpretation Comments SODIUM (BEAKER) (test code = 381) 140 meq/L 136-145 CALCIUM, [id number] 09:49:03 Test Item Value Reference Range Interpretation Comments CALCIUM IONIZED (BEAKER) (test 0.75 mmol/L 1.12-1.27 LL code = 698) PH, BLOOD (BEAKER) (test code = 7.32 1810) HGB/HCT (H&H) - STAT [id number] 09:48:15 Test Item Value Reference Range Interpretation Comments HEMOGLOBIN (BEAKER) (test code = 9.6 GM/DL 12.0-15.0 L 410) HEMATOCRIT (BEAKER) (test code = 28.0 % 36.0-45.0 L 411) GLUCOSE-STAT [id number] 09:48:09 Test Item Value Reference Range Interpretation Comments GLUCOSE RANDOM (BEAKER) (test code 153 mg/dL 70-110 H = 652) BLOOD GAS, [id number] 09:48:02 Test Item Value Reference Range Interpretation Comments PH ARTERIAL (BEAKER) (test code = 7.36 7.35-7.45 383) PCO2 ARTERIAL (BEAKER) (test code 35 mm Hg 35-45 = 384) PO2 ARTERIAL (BEAKER) (test code 426 mm Hg 80-90 H = 385) O2 SATURATION ARTERIAL (BEAKER) 99.8 % 96.0-97.0 H (test code = 386) HCO3 ARTERIAL (BEAKER) (test code 20 mmol/L 21-29 L = 388) BASE EXCESS ARTERIAL (BEAKER) -5.8 mmol/L -2.0-3.0 L (test code = 387) PATIENT TEMPERATURE (BEAKER) 34.0 (test code = 1818) FIO2 (BEAKER) (test code = 1819) 100.0 POTASSIUM-STAT [id number] 09:48:00 Test Item Value Reference Range Interpretation Comments POTASSIUM (BEAKER) (test code = 3.3 meq/L 3.6-5.5 L 379) SODIUM NA-STAT [id number] 09:42:14 Test Item Value Reference Range Interpretation Comments SODIUM (BEAKER) (test code = 381) 140 meq/L 136-145 CALCIUM, [id number] 09:11:26 Test Item Value Reference Range Interpretation Comments CALCIUM IONIZED (BEAKER) (test 0.90 mmol/L 1.12-1.27 L code = 698) PH, BLOOD (BEAKER) (test code = 7.34 1810) BLOOD GAS, [id number] 09:11:25 Test Item Value Reference Range Interpretation Comments PH ARTERIAL (BEAKER) (test code = 7.39 7.35-7.45 383) PCO2 ARTERIAL (BEAKER) (test code 35 mm Hg 35-45 = 384) PO2 ARTERIAL (BEAKER) (test code 408 mm Hg 80-90 H = 385) O2 SATURATION ARTERIAL (BEAKER) 99.8 % 96.0-97.0 H (test code = 386) HCO3 ARTERIAL (BEAKER) (test code 22 mmol/L 21-29 = 388) BASE EXCESS ARTERIAL (BEAKER) -3.8 mmol/L -2.0-3.0 L (test code = 387) PATIENT TEMPERATURE (BEAKER) 33.5 (test code = 1818) FIO2 (BEAKER) (test code = 1819) 100.0 GLUCOSE-STAT [id number] 09:11:19 Test Item Value Reference Range Interpretation Comments GLUCOSE RANDOM (BEAKER) (test code 145 mg/dL 70-110 H = 652) HGB/HCT (H&H) - STAT [id number] 09:11:13 Test Item Value Reference Range Interpretation Comments HEMOGLOBIN (BEAKER) (test code = 9.2 GM/DL 12.0-15.0 L 410) HEMATOCRIT (BEAKER) (test code = 27.0 % 36.0-45.0 L 411) POTASSIUM-STAT [id number] 09:11:11 Test Item Value Reference Range Interpretation Comments POTASSIUM (BEAKER) (test code = 3.3 meq/L 3.6-5.5 L 379) SODIUM NA-STAT [id number] 09:10:21 Test Item Value Reference Range Interpretation Comments SODIUM (BEAKER) (test code = 381) 140 meq/L 136-145 MISCELLANEOUS LAB [id number] 08:53:20 Test Item Value Reference Range Interpretation Comments SCAN RESULT (test code = See scanned report [id number]) See scanned reportCALCIUM, [id number] 08:47:57 Test Item Value Reference Range Interpretation Comments CALCIUM IONIZED (BEAKER) (test 1.20 mmol/L 1.12-1.27 code = 698) PH, BLOOD (BEAKER) (test code = 7.37 1810) POTASSIUM-STAT [id number] 08:47:20 Test Item Value Reference Range Interpretation Comments POTASSIUM (BEAKER) (test code = 3.1 meq/L 3.6-5.5 L 379) HGB/HCT (H&H) - STAT [id number] 08:47:09 Test Item Value Reference Range Interpretation Comments HEMOGLOBIN (BEAKER) (test code = 8.7 GM/DL 12.0-15.0 L 410) HEMATOCRIT (BEAKER) (test code = 26.0 % 36.0-45.0 L 411) GLUCOSE-STAT [id number] 08:47:03 Test Item Value Reference Range Interpretation Comments GLUCOSE RANDOM (BEAKER) (test code 126 mg/dL 70-110 H = 652) BLOOD GAS, [id number] 08:46:57 Test Item Value Reference Range Interpretation Comments PH ARTERIAL (BEAKER) (test code = 7.43 7.35-7.45 383) PCO2 ARTERIAL (BEAKER) (test code 29 mm Hg 35-45 L = 384) PO2 ARTERIAL (BEAKER) (test code 364 mm Hg 80-90 H = 385) O2 SATURATION ARTERIAL (BEAKER) 99.8 % 96.0-97.0 H (test code = 386) HCO3 ARTERIAL (BEAKER) (test code 20 mmol/L 21-29 L = 388) BASE EXCESS ARTERIAL (BEAKER) -5.1 mmol/L -2.0-3.0 L (test code = 387) PATIENT TEMPERATURE (BEAKER) 33.4 (test code = 1818) FIO2 (BEAKER) (test code = 1819) 100.0 SODIUM NA-STAT [id number] 08:46:46 Test Item Value Reference Range Interpretation Comments SODIUM (BEAKER) (test code = 381) 139 meq/L 136-145 CALCIUM, [id number] 08:24:39 Test Item Value Reference Range Interpretation Comments CALCIUM IONIZED (BEAKER) (test 0.97 mmol/L 1.12-1.27 L code = 698) PH, BLOOD (BEAKER) (test code = 7.45 1810) POTASSIUM-STAT [id number] 08:24:01 Test Item Value Reference Range Interpretation Comments POTASSIUM (BEAKER) (test code = 2.9 meq/L 3.6-5.5 L 379) HGB/HCT (H&H) - STAT [id number] 08:23:56 Test Item Value Reference Range Interpretation Comments HEMOGLOBIN (BEAKER) (test code = 8.6 GM/DL 12.0-15.0 L 410) HEMATOCRIT (BEAKER) (test code = 25.0 % 36.0-45.0 L 411) BLOOD GAS, [id number] 08:23:47 Test Item Value Reference Range Interpretation Comments PH ARTERIAL (BEAKER) (test code = 7.49 7.35-7.45 H 383) PCO2 ARTERIAL (BEAKER) (test code 26 mm Hg 35-45 L = 384) PO2 ARTERIAL (BEAKER) (test code 356 mm Hg 80-90 H = 385) O2 SATURATION ARTERIAL (BEAKER) 99.8 % 96.0-97.0 H (test code = 386) HCO3 ARTERIAL (BEAKER) (test code 20 mmol/L 21-29 L = 388) BASE EXCESS ARTERIAL (BEAKER) -3.5 mmol/L -2.0-3.0 L (test code = 387) PATIENT TEMPERATURE (BEAKER) 34.0 (test code = 1818) FIO2 (BEAKER) (test code = 1819) 100.0 SODIUM NA-STAT [id number] 08:23:31 Test Item Value Reference Range Interpretation Comments SODIUM (BEAKER) (test code = 381) 138 meq/L 136-145 GLUCOSE-STAT [id number] 08:23:30 Test Item Value Reference Range Interpretation Comments GLUCOSE RANDOM (BEAKER) (test code 107 mg/dL 70-110 = 652) BLOOD GAS, [id number] 08:02:17 Test Item Value Reference Range Interpretation Comments PH ARTERIAL (BEAKER) (test code = 7.58 7.35-7.45 H 383) PCO2 ARTERIAL (BEAKER) (test code 24 mm Hg 35-45 L = 384) PO2 ARTERIAL (BEAKER) (test code 308 mm Hg 80-90 H = 385) O2 SATURATION ARTERIAL (BEAKER) 99.8 % 96.0-97.0 H (test code = 386) HCO3 ARTERIAL (BEAKER) (test code 22 mmol/L 21-29 = 388) BASE EXCESS ARTERIAL (BEAKER) -0.3 mmol/L -2.0-3.0 (test code = 387) PATIENT TEMPERATURE (BEAKER) 34.0 (test code = 1818) FIO2 (BEAKER) (test code = 1819) 100.0 HGB/HCT (H&H) - STAT [id number] 08:02:16 Test Item Value Reference Range Interpretation Comments HEMOGLOBIN (BEAKER) (test code = 8.2 GM/DL 12.0-15.0 L 410) HEMATOCRIT (BEAKER) (test code = 24.0 % 36.0-45.0 L 411) POTASSIUM-STAT [id number] 08:02:10 Test Item Value Reference Range Interpretation Comments POTASSIUM (BEAKER) (test code = 2.8 meq/L 3.6-5.5 L 379) SODIUM NA-STAT [id number] 08:01:28 Test Item Value Reference Range Interpretation Comments SODIUM (BEAKER) (test code = 381) 138 meq/L 136-145 GLUCOSE-STAT [id number] 08:01:27 Test Item Value Reference Range Interpretation Comments GLUCOSE RANDOM (BEAKER) (test code 107 mg/dL 70-110 = 652) CBC W/PLT COUNT & AUTO [id number] 05:41:25 Test Item Value Reference Range Interpretation Comments WHITE BLOOD CELL COUNT 6.4 K/ L 3.5-10.5 (BEAKER) (test code = 775) RED BLOOD CELL COUNT 3.60 M/ L 3.93-5.22 L (BEAKER) (test code = 761) HEMOGLOBIN (BEAKER) 10.1 GM/DL 11.2-15.7 L (test code = 410) HEMATOCRIT (BEAKER) 29.6 % 34.1-44.9 L (test code = 411) MEAN CORPUSCULAR 82.2 fL 79.4-94.8 VOLUME (BEAKER) (test code = 753) MEAN CORPUSCULAR 28.1 pg 25.6-32.2 HEMOGLOBIN (BEAKER) (test code = 751) MEAN CORPUSCULAR 34.1 GM/DL 32.2-35.5 HEMOGLOBIN CONC (BEAKER) (test code = 752) RED CELL DISTRIBUTION 20.2 % 11.7-14.4 H WIDTH (BEAKER) (test code = 412) PLATELET COUNT 20 K/CU MM 150-[address] T (BEAKER) (test code = result s compared to 756) previous result s; clinical correl ation required. MEAN PLATELET VOLUME Unable to report due (BEAKER) (test code = to abn ormal Platelet 754) population distribution. NUCLEATED RED BLOOD 0 /100 WBC 0-0 CELLS (BEAKER) (test code = 413) NEUTROPHILS RELATIVE 70 % PERCENT (BEAKER) (test code = 429) LYMPHOCYTES RELATIVE 17 % PERCENT (BEAKER) (test code = 430) MONOCYTES RELATIVE 10 % PERCENT (BEAKER) (test code = 431) EOSINOPHILS RELATIVE 1 % PERCENT (BEAKER) (test code = 432) BASOPHILS RELATIVE 1 % PERCENT (BEAKER) (test code = 437) NEUTROPHILS ABSOLUTE 4.45 K/ L 1.56-6.13 COUNT (BEAKER) (test code = 670) LYMPHOCYTES ABSOLUTE 1.06 K/ L 1.18-3.74 L COUNT (BEAKER) (test code = 414) MONOCYTES ABSOLUTE 0.65 K/ L 0.24-0.36 H COUNT (BEAKER) (test code = 415) EOSINOPHILS ABSOLUTE 0.04 K/ L 0.04-0.36 COUNT (BEAKER) (test code = 416) BASOPHILS ABSOLUTE 0.04 K/ L 0.01-0.08 COUNT (BEAKER) (test code = 417) IMMATURE 2 % 0-1 H GRANULOCYTES-RELATIVE PERCENT (BEAKER) (test code = 2801) COMPREHENSIVE METABOLIC [id number] 05:03:35 Test Item Value Reference Range Interpretation Comments TOTAL PROTEIN 5.7 gm/dL 6.0-8.3 L (BEAKER) (test code = 770) ALBUMIN (BEAKER) 2.5 g/dL 3.5-5.0 L (test code = 1145) ALKALINE 98 U/L 40-150 PHOSPHATASE (BEAKER) (test code = 346) BILIRUBIN TOTAL 30.0 mg/dL 0.2-1.2 H (BEAKER) (test code = 377) SODIUM (BEAKER) 141 meq/L 136-145 (test code = 381) POTASSIUM (BEAKER) 3.5 meq/L 3.5-5.1 (test code = 379) CHLORIDE (BEAKER) 106 meq/L 98-107 (test code = 382) CO2 (BEAKER) (test 25 meq/L 22-29 code = 355) BLOOD UREA 16 mg/dL 7-21 NITROGEN (BEAKER) (test code = 354) CREATININE 4.16 mg/dL 0.57-1.25 H (BEAKER) (test code = 358) GLUCOSE RANDOM 125 mg/dL 70-105 H (BEAKER) (test code = 652) CALCIUM (BEAKER) 9.0 mg/dL 8.4-10.2 (test code = 697) AST (SGOT) 153 U/L 5-34 H (BEAKER) (test code = 353) ALT (SGPT) 54 U/L 6-55 (BEAKER) (test code = 347) EGFR (BEAKER) 12 Interpretatio n of eGFR (test code = 1092) mL/min/1.[address] age Description sq m Result G1 Stephanie l or high >=90 G2 Mildly decreased 60-89 G3a Mildl y to moderately 45-5 9 G3b Moderately to s everely 30-44 G4 Severl y decreased 15-29 G5 Kidney failure <15Reported eGF R is based on the CKD-EPI 2020 equation that d oes not use a race coefficientEsti mated GFR is not as accur ate as Creatinine Regina fara in predicting glom erular filtration rate . Estimated GFR is not appl icable for dialysis patien ts Strawhat Sizer ID - KWAKU GOperator ID - KWAKU GSpecimen markedly ictericMAGNESIUM 2022-05-16 05:01:42 Test Item Value Reference Range Interpretation Comments MAGNESIUM (BEAKER) (test code = 1.8 mg/dL 1.6-2.6 627) Strawhat Sizer ID - KWAKU GPROTHROMBIN TIME/[id number] 04:53:55 Test Item Value Reference Range Interpretation Comments PROTIME (BEAKER) 23.9 seconds 11.9-14.2 H (test code = 759) INR (BEAKER) (test 2.30 See_Comment [Automat ed message] code = 370) The system Vamo generated this result transmitted ref erence range: <=5.90. The reference range was not used to int erpret this result as normal/abnormal . RECOMMENDED COUMADIN/WARFARIN INR THERAPY RANGESSTANDARD DOSE: 2.0 - 3.0 Includes: PROPHYLAXIS for venous thrombosis, systemic embolization; TREATMENT for venous thrombosis and/or pulmonary embolus.HIGH RISK: Target INR is 2.5-3.5 for patients with mechanical heart valves.BLOOD [id number] 14:00:23 Test Item Value Reference Range Interpretation Comments CULTURE (BEAKER) (test No growth in 5 days code = 1095) The specimen volume collected for this blood culture was below the optimum (10 mL per bottle or 20 mL total). Use of lower volumes may adversely affect recovery and/or detection times of some organisms.BLOOD [id number] 14:00:22 Test Item Value Reference Range Interpretation Comments CULTURE (BEAKER) (test No growth in 5 days code = 1095) Thin [id number] 11:01:06 Test Item Value Reference Range Interpretation Comments Scan Result (test code = See scanned report [id number]) ADRIA (test code = ADRIA) [facility] scanned report [facility] [id number] 11:01:06 Test Item Value Reference Range Interpretation Comments Scan Result (test code = See scanned report [id number]) ADRIA (test code = ADRIA) See scanned report [facility] [id number] 11:01:06 Test Item Value Reference Range Interpretation Comments SCAN RESULT (test code = See scanned report [id number]) See scanned reportCYTOMEGALOVIRUS ANTIBODY, [id number] 07:25:02 Test Item Value Reference Range Interpretation Comments CYTOMEGALOVIRUS, IGG (BEAKER) Positive Negative, Equivocal A (test code = 3429) CMV IgG Result Interpretation: </= 0.8 Al Negative 0.9-1.0 Al Equivocal >/=1.1 Al PositiveCALCIUM, [id number] 05:05:27 Test Item Value Reference Range Interpretation Comments CALCIUM IONIZED (BEAKER) (test 1.11 mmol/L 1.12-1.27 L code = 698) PH, BLOOD (BEAKER) (test code = 7.33 1810) COMPREHENSIVE METABOLIC [id number] 05:03:46 Test Item Value Reference Range Interpretation Comments TOTAL PROTEIN 5.7 gm/dL 6.0-8.3 L (BEAKER) (test code = 770) ALBUMIN (BEAKER) 2.6 g/dL 3.5-5.0 L (test code = 1145) ALKALINE 91 U/L 40-150 PHOSPHATASE (BEAKER) (test code = 346) BILIRUBIN TOTAL 29.0 mg/dL 0.2-1.2 H (BEAKER) (test code = 377) SODIUM (BEAKER) 140 meq/L 136-145 (test code = 381) POTASSIUM (BEAKER) 3.5 meq/L 3.5-5.1 (test code = 379) CHLORIDE (BEAKER) 105 meq/L 98-107 (test code = 382) CO2 (BEAKER) (test 22 meq/L 22-29 code = 355) BLOOD UREA 30 mg/dL 7-21 H NITROGEN (BEAKER) (test code = 354) CREATININE 5.96 mg/dL 0.57-1.25 H (BEAKER) (test code = 358) GLUCOSE RANDOM 132 mg/dL 70-105 H (BEAKER) (test code = 652) CALCIUM (BEAKER) 9.3 mg/dL 8.4-10.2 (test code = 697) AST (SGOT) 132 U/L 5-34 H (BEAKER) (test code = 353) ALT (SGPT) 45 U/L 6-55 (BEAKER) (test code = 347) EGFR (BEAKER) 8 Interpretatio n of eGFR (test code = 1092) mL/min/1.[address] age Description sq m Result G1 Stephanie l or high >=90 G2 Mildly decreased 60-89 G3a Mildl y to moderately 45-5 9 G3b Moderately to s everely 30-44 G4 Severl y decreased 15-29 G5 Kidney failure <15Reported eGF R is based on the CKD-EPI 2021 equation that d oes not use a race coefficientEsti mated GFR is not as accur ate as Creatinine Regina fara in predicting glom erular filtration rate . Estimated GFR is not appl icable for dialysis patien ts Strawhat Sizer ID - PISANDI LOperator ID - PISANDI LSpecimen markedly ictericPHOSPHORUS 2022-05-15 04:43:03 Test Item Value Reference Range Interpretation Comments PHOSPHORUS (BEAKER) (test code = 3.4 mg/dL 2.3-4.7 604) Strawhat Sizer ID - MARCY [id number] 04:43:02 Test Item Value Reference Range Interpretation Comments MAGNESIUM (BEAKER) (test code = 1.7 mg/dL 1.6-2.6 627) Strawhat Sizer ID - MARCY [id number] 04:33:54 Test Item Value Reference Range Interpretation Comments FIBRINOGEN LEVEL (BEAKER) (test 171 mg/dl 225-434 L code = 658) PROTHROMBIN [id number] 04:33:33 Test Item Value Reference Range Interpretation Comments PROTIME (BEAKER) 22.3 seconds 11.9-14.2 H (test code = 759) INR (BEAKER) (test 2.10 See_Comment [Automat ed message] code = 370) The system Vamo generated this result transmitted ref erence range: <=5.90. The reference range was not used to int erpret this result as normal/abnormal . RECOMMENDED COUMADIN/WARFARIN INR THERAPY RANGESSTANDARD DOSE: 2.0 - 3.0 Includes: PROPHYLAXIS for venous thrombosis, systemic embolization; TREATMENT for venous thrombosis and/or pulmonary embolus.HIGH RISK: Target INR is 2.5-3.5 for patients with mechanical heart valves.CBC W/PLT COUNT & AUTO [id number] 04:28:35 Test Item Value Reference Range Interpretation Comments WHITE BLOOD CELL COUNT 6.7 K/ L 3.5-10.5 (BEAKER) (test code = 775) RED BLOOD CELL COUNT 3.70 M/ L 3.93-5.22 L (BEAKER) (test code = 761) HEMOGLOBIN (BEAKER) 10.6 GM/DL 11.2-15.7 L (test code = 410) HEMATOCRIT (BEAKER) 30.6 % 34.1-44.9 L (test code = 411) MEAN CORPUSCULAR 82.7 fL 79.4-94.8 Discordant MCV VOLUME (BEAKER) (test result s compared to code = 753) previous result s; clinical correl ation required. MEAN CORPUSCULAR 28.6 pg 25.6-32.2 HEMOGLOBIN (BEAKER) (test code = 751) MEAN CORPUSCULAR 34.6 GM/DL 32.2-35.5 HEMOGLOBIN CONC (BEAKER) (test code = 752) RED CELL DISTRIBUTION 19.6 % 11.7-14.4 H WIDTH (BEAKER) (test code = 412) PLATELET COUNT 53 K/CU MM 150-450 L (BEAKER) (test code = 756) MEAN PLATELET VOLUME 11.1 fL 9.4-12.3 (BEAKER) (test code = 754) NUCLEATED RED BLOOD 0 /100 WBC 0-0 CELLS (BEAKER) (test code = 413) NEUTROPHILS RELATIVE 68 % PERCENT (BEAKER) (test code = 429) LYMPHOCYTES RELATIVE 16 % PERCENT (BEAKER) (test code = 430) MONOCYTES RELATIVE 13 % PERCENT (BEAKER) (test code = 431) EOSINOPHILS RELATIVE 1 % PERCENT (BEAKER) (test code = 432) BASOPHILS RELATIVE 1 % PERCENT (BEAKER) (test code = 437) NEUTROPHILS ABSOLUTE 4.54 K/ L 1.56-6.13 COUNT (BEAKER) (test code = 670) LYMPHOCYTES ABSOLUTE 1.04 K/ L 1.18-3.74 L COUNT (BEAKER) (test code = 414) MONOCYTES ABSOLUTE 0.84 K/ L 0.24-0.36 H COUNT (BEAKER) (test code = 415) EOSINOPHILS ABSOLUTE 0.05 K/ L 0.04-0.36 COUNT (BEAKER) (test code = 416) BASOPHILS ABSOLUTE 0.04 K/ L 0.01-0.08 COUNT (BEAKER) (test code = 417) IMMATURE 3 % 0-1 H GRANULOCYTES-RELATIVE PERCENT (BEAKER) (test code = 2801) Prepare Leuko-Red [id number] 23:54:00 Test Item Value Reference Range Interpretation Comments Unit ABO (test code = 1047301) O Pos UNIT NUMBER (test code = [id number] 934-0) Status (test code = 0637857) TX_TIMEINCHART Blood Bank Product (test code PLATELETS = 2263) PRODUCT CODE (test code = B3840S78 933-2) [facility] [id number] 23:54:00 Test Item Value Reference Range Interpretation Comments Unit ABO (test code = 0266744) O Pos UNIT NUMBER (test code = [id number] 934-0) Status (test code = 2008965) TX_TIMEINCHART Blood Bank Product (test code PLATELETS = 2263) PRODUCT CODE (test code = Q4013H17 933-2) [facility] CenterHEMOGLOBIN AND [id number] 20:51:48 Test Item Value Reference Range Interpretation Comments HEMOGLOBIN (BEAKER) 10.3 GM/DL 11.2-15.7 L Discorda nt with the (test code = 410) previous r esult. HEMATOCRIT (BEAKER) 29.5 % 34.1-44.9 L (test code = 411) Strawhat Sizer ID - [id number] ID - [id number] 16:16:45 Test Item Value Reference Range Interpretation Comments T3 TOTAL (BEAKER) (test code = 656) < ng/mL 0.60-1.81 L Strawhat Sizer ID - [id number] 15:11:04 Test Item Value Reference Range Interpretation Comments T4 TOTAL (BEAKER) (test code = 895) 2.5 ug/dL 4.9-11.7 L Strawhat Sizer ID - AAHAMIDHEPATITIS B [id number] 14:34:54 Test Item Value Reference Range Interpretation Comments HEPATITIS B CORE TOTAL ANTIBODY Nonreactive Nonreactive (BEAKER) (test code = 497) HEPATITIS B SURFACE ANTIBODY < mIU/mL <8.0 (BEAKER) (test code = 647) HEPATITIS B SURFACE ANTIGEN (2) Nonreactive Nonreactive (BEAKER) (test code = 2585) Strawhat Sizer ID - DBHIV-1 ANTIGEN WITH HIV-1/2 [id number] 14:31:13 Test Item Value Reference Range Interpretation Comments HIV-1 ANTIGEN WITH HIV 1\\T\\2 Nonreactive Nonreactive ANTIBODY (2) (BEAKER) (test code = 2586) Strawhat Sizer ID - [id number] 14:31:12 Test Item Value Reference Range Interpretation Comments THYROID STIMULATING HORMONE 0.597 uIU/mL 0.350-4.940 (BEAKER) (test code = 772) Strawhat Sizer ID - DBHEPATITIS C [id number] 14:31:12 Test Item Value Reference Range Interpretation Comments HEPATITIS C ANTIBODY (BEAKER) Nonreactive Nonreactive (test code = 367) Strawhat Sizer ID - DBHEPATIC FUNCTION [id number] 14:23:06 Test Item Value Reference Range Interpretation Comments TOTAL PROTEIN (BEAKER) (test code 5.6 gm/dL 6.0-8.3 L = 770) ALBUMIN (BEAKER) (test code = 2.6 g/dL 3.5-5.0 L 1145) BILIRUBIN TOTAL (BEAKER) (test 29.7 mg/dL 0.2-1.2 H code = 377) BILIRUBIN DIRECT (BEAKER) (test 20.2 mg/dL 0.1-0.5 H code = 706) ALKALINE PHOSPHATASE (BEAKER) 95 U/L 40-150 (test code = 346) AST (SGOT) (BEAKER) (test code = 107 U/L 5-34 H 353) ALT (SGPT) (BEAKER) (test code = 39 U/L 6-55 347) Strawhat Sizer ID - DBOperator ID - DBOperator ID - DBSpecimen markedly ictericBASIC METABOLIC [id number] 14:22:55 Test Item Value Reference Range Interpretation Comments SODIUM (BEAKER) 138 meq/L 136-145 (test code = 381) POTASSIUM 3.4 meq/L 3.5-5.1 L (BEAKER) (test code = 379) CHLORIDE (BEAKER) 103 meq/L 98-107 (test code = 382) CO2 (BEAKER) 22 meq/L 22-29 (test code = 355) BLOOD UREA 29 mg/dL 7-21 H NITROGEN (BEAKER) (test code = 354) CREATININE 5.40 mg/dL 0.57-1.25 H (BEAKER) (test code = 358) GLUCOSE RANDOM 122 mg/dL 70-105 H (BEAKER) (test code = 652) CALCIUM (BEAKER) 9.2 mg/dL 8.4-10.2 (test code = 697) EGFR (BEAKER) 9 Interpretatio n of eGFR (test code = mL/min/1.73 values Stage De scription 1092) sq m Result G1 Norm al or high >=90 G2 Mildly decreased 60-89 G3a Mildl y to moderately 45-5 9 G3b Moderately to s everely 30-44 G4 Severl y decreased 15-29 G5 Kidne y failure <15Reported eGF R is based on the CKD-EPI 2020 equation that d oes not use a race coefficientEsti mated GFR is not as accur ate as Creatinine Regina fara in predicting glom erular filtration rate . Estimated GFR is not appl icable for dialysis patien ts Strawhat Sizer ID - DBSpecimen markedly ictericGAMMA GLUTAMYL TRANSFERASE (GGT) 2022-05-14 14:17:53 Test Item Value Reference Range Interpretation Comments GAMMA GLUTAMYL TRANSFERASE (BEAKER) 49 U/L 9-64 (test code = 364) Strawhat Sizer ID - DBSpecimen markedly [id number] 14:17:52 Test Item Value Reference Range Interpretation Comments MAGNESIUM (BEAKER) (test code = 1.7 mg/dL 1.6-2.6 627) Strawhat Sizer ID - [id number] 14:17:52 Test Item Value Reference Range Interpretation Comments PHOSPHORUS (BEAKER) (test code = 3.2 mg/dL 2.3-4.7 604) Strawhat Sizer ID - DBSARS-COV2/RT-PCR ([facility])2022-05-14 14:14:44 Test Item Value Reference Range Interpretation Comments SARS-COV2/RT-PCR Negative Negative The SARS-Co V-2 target (test code = nucleic acids a re not [id number]) detected in thi s specimen. Negative result s do not preclude SARS-C oV-2 infection and s hould not be used as the derick e basis for patient managem ent decisions. Nega tive results must be combine d with clinical observ ations, patient history , and epidemiological information. A false negativ e result may occur if a spec imen is improperly erika ected, transported or handled. This SARS CoV-2 test is a rapid, real-time RT-PC R test intended for th e qualitative detection of nu cleic acid from SARS-CoV-2 in a nasopharyngeal swab specimen collected from individuals suspected of CO VID-19 by their healthcar e provider. This test has been authorized by FDA under an EUA for use by authorized laboratories. This test is only authorized for the duration of the declaration that circumstances exist justifying the authorization of emergency use of in vitro diagnostic tests for detection and/or diagnosis of COVID-19 under Section 564(b)(1) of the Federal Food, Drug and Cosmetic Act, 21 U.S.C. 360bbb-3(b)(1), unless the authorization is terminated or revoked sooner. Fact Sheet for Healthcare Providers: https://www.Locality/Documents/Xpert%20Xpress%20SARS%20CoV-2/Fact%20Sheets/302-3802%11SWUV-XGY-3%20 HEALTHCARE%20PROVIDERS%20FACT%20SHEET.pdf Fact Sheet for Healthcare Patients: https://www.Xoopit/Documents/Xpert%20Xp ress%20SARS%20CoV-2/Fact%20Sheets/302-3801%65GORV-VET-0%20PATIENT%20FACT%20SHEET .[id number] 14:01:27 Test Item Value Reference Range Interpretation Comments PARTIAL THROMBOPLASTIN TIME 50.0 seconds 22.5-36.0 H (BEAKER) (test code = 760) PROTHROMBIN TIME/[id number] 14:00:22 Test Item Value Reference Range Interpretation Comments PROTIME (BEAKER) 22.1 seconds 11.9-14.2 H (test code = 759) INR (BEAKER) (test 2.08 See_Comment [Automat ed message] code = 370) The system Vamo generated this result transmitted ref erence range: <=5.90. The reference range was not used to int erpret this result as normal/abnormal . RECOMMENDED COUMADIN/WARFARIN INR THERAPY RANGESSTANDARD DOSE: 2.0 - 3.0 Includes: PROPHYLAXIS for venous thrombosis, systemic embolization; TREATMENT for venous thrombosis and/or pulmonary embolus.HIGH RISK: Target INR is 2.5-3.5 for patients with mechanical heart valves.STAT-LAB IONIZED [id number] 13:49:01 Test Item Value Reference Range Interpretation Comments FILTER IONIZED CALCIUM (BEAKER) 1.08 nnol/L (test code = 1854) Reference Range: No NormalsRAD, CHEST, 1 VIEW, NON [id number] 12:52:00 Chronic Liver Failure pending Transplantation.Reason for exam:->Liver transplant pre-opShould this be performed at the bedside?->Yes [facility] : 1965 Sex: FFINAL REPORT RAD, CHEST, 1 VIEW, NON DEPT INDICATION: Liver transplant pre-op COMPARISON: April 30, 2022 FINDINGS: Portable frontal view of the chest. IMPRESSION: Support Lines: Right IJ tunneled catheter tip overlies the right atrium. Lungs and pleura: Retrocardiac consolidation. Small left pleural effusion is present. Mild vascular congestion. No pneumothorax.Heart and mediastinum: Stable contours. Additional findings: None. Signed: Harinder Ceja MDReport Verified Date/Time: 05/14/2022 12:52:17 POCT-GLUCOSE [id number] 11:22:54 Test Item Value Reference Range Interpretation Comments POC-GLUCOSE METER 119 mg/dL 70-110 H : TESTED A T [facility] 6720 (BEBANNER) (test code [facility], = 1538) [address]: Strawhat Sizer/Techni daren ID = [id number] for Samia Thompson COMPREHENSIVE METABOLIC [id number] 07:08:31 Test Item Value Reference Range Interpretation Comments TOTAL PROTEIN 4.9 gm/dL 6.0-8.3 L (BEAKER) (test code = 770) ALBUMIN (BEAKER) 2.3 g/dL 3.5-5.0 L (test code = 1145) ALKALINE 83 U/L 40-150 PHOSPHATASE (BEAKER) (test code = 346) BILIRUBIN TOTAL 25.3 mg/dL 0.2-1.2 H (BEAKER) (test code = 377) SODIUM (BEAKER) 136 meq/L 136-145 (test code = 381) POTASSIUM (BEAKER) 3.3 meq/L 3.5-5.1 L (test code = 379) CHLORIDE (BEAKER) 102 meq/L 98-107 (test code = 382) CO2 (BEAKER) (test 20 meq/L 22-29 L code = 355) BLOOD UREA 28 mg/dL 7-21 H NITROGEN (BEAKER) (test code = 354) CREATININE 5.25 mg/dL 0.57-1.25 H (BEAKER) (test code = 358) GLUCOSE RANDOM 116 mg/dL 70-105 H (BEAKER) (test code = 652) CALCIUM (BEAKER) 9.0 mg/dL 8.4-10.2 (test code = 697) AST (SGOT) 88 U/L 5-34 H (BEAKER) (test code = 353) ALT (SGPT) 34 U/L 6-55 (BEAKER) (test code = 347) EGFR (BEAKER) 9 Interpretatio n of eGFR (test code = 1092) mL/min/1.[address] age Description sq m Result G1 Stephanie l or high >=90 G2 Mildly decreased 60-89 G3a Mildl y to moderately 45-5 9 G3b Moderately to s everely 30-44 G4 Severl y decreased 15-29 G5 Kidne y failure <15Reported eGF R is based on the CKD-EPI 2021 equation that d oes not use a race coefficientEsti mated GFR is not as accur ate as Creatinine Regina chaudhari in predicting glom erular filtration rate . Estimated GFR is not appl icable for dialysis patien ts Strawhat Sizer ID - DBOperator ID - DBSpecimen markedly [id number] 06:48:14 Test Item Value Reference Range Interpretation Comments MAGNESIUM (BEAKER) (test code = 1.6 mg/dL 1.6-2.6 627) Strawhat Sizer ID - DBCBC W/PLT COUNT & AUTO [id number] 06:04:33 Test Item Value Reference Range Interpretation Comments WHITE BLOOD CELL COUNT (BEAKER) 6.0 K/ L 3.5-10.5 (test code = 775) RED BLOOD CELL COUNT (BEAKER) 1.99 M/ L 3.93-5.22 L (test code = 761) HEMOGLOBIN (BEAKER) (test code = 6.0 GM/DL 11.2-15.7 LL 410) HEMATOCRIT (BEAKER) (test code = 17.3 % 34.1-44.9 L 411) MEAN CORPUSCULAR VOLUME (BEAKER) 86.9 fL 79.4-94.8 (test code = 753) MEAN CORPUSCULAR HEMOGLOBIN 30.2 pg 25.6-32.2 (BEAKER) (test code = 751) MEAN CORPUSCULAR HEMOGLOBIN CONC 34.7 GM/DL 32.2-35.5 (BEAKER) (test code = 752) RED CELL DISTRIBUTION WIDTH 19.1 % 11.7-14.4 H (BEAKER) (test code = 412) PLATELET COUNT (BEAKER) (test code 53 K/CU MM 150-450 L = 756) MEAN PLATELET VOLUME (BEAKER) 10.5 fL 9.4-12.3 (test code = 754) NUCLEATED RED BLOOD CELLS (BEAKER) 0 /100 WBC 0-0 (test code = 413) NEUTROPHILS RELATIVE PERCENT 64 % (BEAKER) (test code = 429) LYMPHOCYTES RELATIVE PERCENT 21 % (BEAKER) (test code = 430) MONOCYTES RELATIVE PERCENT 13 % (BEAKER) (test code = 431) EOSINOPHILS RELATIVE PERCENT 1 % (BEAKER) (test code = 432) BASOPHILS RELATIVE PERCENT 0 % (BEAKER) (test code = 437) NEUTROPHILS ABSOLUTE COUNT 3.86 K/ L 1.56-6.13 (BEAKER) (test code = 670) LYMPHOCYTES ABSOLUTE COUNT 1.26 K/ L 1.18-3.74 (BEAKER) (test code = 414) MONOCYTES ABSOLUTE COUNT (BEAKER) 0.76 K/ L 0.24-0.36 H (test code = 415) EOSINOPHILS ABSOLUTE COUNT 0.03 K/ L 0.04-0.36 L (BEAKER) (test code = 416) BASOPHILS ABSOLUTE COUNT (BEAKER) 0.01 K/ L 0.01-0.08 (test code = 417) IMMATURE GRANULOCYTES-RELATIVE 1 % 0-1 PERCENT (BEAKER) (test code = 2801) CBC W/PLT COUNT & AUTO [id number] 00:12:31 Test Item Value Reference Range Interpretation Comments WHITE BLOOD CELL COUNT 6.7 K/ L 3.5-10.5 (BEAKER) (test code = 775) RED BLOOD CELL COUNT 2.62 M/ L 3.93-5.22 L (BEAKER) (test code = 761) HEMOGLOBIN (BEAKER) 8.0 GM/DL 11.2-15.7 L (test code = 410) HEMATOCRIT (BEAKER) 23.3 % 34.1-44.9 L (test code = 411) MEAN CORPUSCULAR 88.9 fL 79.4-94.8 VOLUME (BEAKER) (test code = 753) MEAN CORPUSCULAR 30.5 pg 25.6-32.2 HEMOGLOBIN (BEAKER) (test code = 751) MEAN CORPUSCULAR 34.3 GM/DL 32.2-35.5 HEMOGLOBIN CONC (BEAKER) (test code = 752) RED CELL DISTRIBUTION 19.6 % 11.7-14.4 H WIDTH (BEAKER) (test code = 412) PLATELET COUNT 66 K/CU MM 150-[address] T (BEAKER) (test code = result s compared to 756) previous result s; clinical correl ation required. MEAN PLATELET VOLUME 12.3 fL 9.4-12.3 (BEAKER) (test code = 754) NUCLEATED RED BLOOD 0 /100 WBC 0-0 CELLS (BEAKER) (test code = 413) NEUTROPHILS RELATIVE 68 % PERCENT (BEAKER) (test code = 429) LYMPHOCYTES RELATIVE 16 % PERCENT (BEAKER) (test code = 430) MONOCYTES RELATIVE 14 % PERCENT (BEAKER) (test code = 431) EOSINOPHILS RELATIVE 0 % PERCENT (BEAKER) (test code = 432) BASOPHILS RELATIVE 0 % PERCENT (BEAKER) (test code = 437) NEUTROPHILS ABSOLUTE 4.55 K/ L 1.56-6.13 COUNT (BEAKER) (test code = 670) LYMPHOCYTES ABSOLUTE 1.07 K/ L 1.18-3.74 L COUNT (BEAKER) (test code = 414) MONOCYTES ABSOLUTE 0.92 K/ L 0.24-0.36 H COUNT (BEAKER) (test code = 415) EOSINOPHILS ABSOLUTE 0.03 K/ L 0.04-0.36 L COUNT (BEAKER) (test code = 416) BASOPHILS ABSOLUTE 0.02 K/ L 0.01-0.08 COUNT (BEAKER) (test code = 417) IMMATURE 2 % 0-1 H GRANULOCYTES-RELATIVE PERCENT (BEAKER) (test code = 2800) HEMOGLOBIN AND [id number] 20:00:45 Test Item Value Reference Range Interpretation Comments HEMOGLOBIN (BEAKER) (test code = 8.7 GM/DL 11.2-15.7 L 410) HEMATOCRIT (BEAKER) (test code = 26.2 % 34.1-44.9 L 411) Strawhat Sizer ID - [id number] METABOLIC [id number] 07:11:36 Test Item Value Reference Range Interpretation Comments TOTAL PROTEIN 5.3 gm/dL 6.0-8.3 L (BEAKER) (test code = 770) ALBUMIN (BEAKER) 2.3 g/dL 3.5-5.0 L (test code = 1145) ALKALINE 82 U/L 40-150 PHOSPHATASE (BEAKER) (test code = 346) BILIRUBIN TOTAL 26.3 mg/dL 0.2-1.2 H (BEAKER) (test code = 377) SODIUM (BEAKER) 140 meq/L 136-145 (test code = 381) POTASSIUM (BEAKER) 3.4 meq/L 3.5-5.1 L (test code = 379) CHLORIDE (BEAKER) 105 meq/L 98-107 (test code = 382) CO2 (BEAKER) (test 26 meq/L 22-29 code = 355) BLOOD UREA 21 mg/dL 7-21 NITROGEN (BEAKER) (test code = 354) CREATININE 4.12 mg/dL 0.57-1.25 H (BEAKER) (test code = 358) GLUCOSE RANDOM 103 mg/dL 70-105 (BEAKER) (test code = 652) CALCIUM (BEAKER) 9.0 mg/dL 8.4-10.2 (test code = 697) AST (SGOT) 98 U/L 5-34 H (BEAKER) (test code = 353) ALT (SGPT) 41 U/L 6-55 (BEAKER) (test code = 347) EGFR (BEAKER) 12 Interpretatio n of eGFR (test code = 1092) mL/min/1.[address] age Description sq m Result G1 Stephanie l or high >=90 G2 Mildly decreased 60-89 G3a Mildl y to moderately 45-5 9 G3b Moderately to s everely 30-44 G4 Severl y decreased 15-29 G5 Kidney failure <15Reported eGF R is based on the CKD-EPI 2021 equation that d oes not use a race coefficientEsti mated GFR is not as accur ate as Creatinine Regina fara in predicting glom erular filtration rate . Estimated GFR is not appl icable for dialysis patien ts Strawhat Sizer ID - MOOperator ID - MOSpecimen markedly [id number] 07:10:06 Test Item Value Reference Range Interpretation Comments MAGNESIUM (BEAKER) (test code = 1.7 mg/dL 1.6-2.6 627) Strawhat Sizer ID - [id number] 07:00:42 Test Item Value Reference Range Interpretation Comments FIBRINOGEN LEVEL (BEAKER) (test 148 mg/dl 225-434 L code = 658) PROTHROMBIN [id number] 06:55:36 Test Item Value Reference Range Interpretation Comments PROTIME (BEAKER) 25.3 seconds 11.9-14.2 H (test code = 759) INR (BEAKER) (test 2.33 See_Comment [Automat ed message] code = 370) The system Vamo generated this result transmitted ref erence range: <=5.90. The reference range was not used to int erpret this result as normal/abnormal . RECOMMENDED COUMADIN/WARFARIN INR THERAPY RANGESSTANDARD DOSE: 2.0 - 3.0 Includes: PROPHYLAXIS for venous thrombosis, systemic embolization; TREATMENT for venous thrombosis and/or pulmonary embolus.HIGH RISK: Target INR is 2.5-3.5 for patients with mechanical heart valves.CBC W/PLT COUNT & AUTO [id number] 06:46:14 Test Item Value Reference Range Interpretation Comments WHITE BLOOD CELL COUNT (BEAKER) 5.5 K/ L 3.5-10.5 (test code = 775) RED BLOOD CELL COUNT (BEAKER) 2.25 M/ L 3.93-5.22 L (test code = 761) HEMOGLOBIN (BEAKER) (test code = 6.7 GM/DL 11.2-15.7 L 410) HEMATOCRIT (BEAKER) (test code = 19.9 % 34.1-44.9 L 411) MEAN CORPUSCULAR VOLUME (BEAKER) 88.4 fL 79.4-94.8 (test code = 753) MEAN CORPUSCULAR HEMOGLOBIN 29.8 pg 25.6-32.2 (BEAKER) (test code = 751) MEAN CORPUSCULAR HEMOGLOBIN CONC 33.7 GM/DL 32.2-35.5 (BEAKER) (test code = 752) RED CELL DISTRIBUTION WIDTH 20.0 % 11.7-14.4 H (BEAKER) (test code = 412) PLATELET COUNT (BEAKER) (test code 29 K/CU MM 150-450 L = 756) MEAN PLATELET VOLUME (BEAKER) 12.6 fL 9.4-12.3 H (test code = 754) NUCLEATED RED BLOOD CELLS (BEAKER) 0 /100 WBC 0-0 (test code = 413) NEUTROPHILS RELATIVE PERCENT 67 % (BEAKER) (test code = 429) LYMPHOCYTES RELATIVE PERCENT 17 % (BEAKER) (test code = 430) MONOCYTES RELATIVE PERCENT 14 % (BEAKER) (test code = 431) EOSINOPHILS RELATIVE PERCENT 1 % (BEAKER) (test code = 432) BASOPHILS RELATIVE PERCENT 0 % (BEAKER) (test code = 437) NEUTROPHILS ABSOLUTE COUNT 3.70 K/ L 1.56-6.13 (BEAKER) (test code = 670) LYMPHOCYTES ABSOLUTE COUNT 0.95 K/ L 1.18-3.74 L (BEAKER) (test code = 414) MONOCYTES ABSOLUTE COUNT (BEAKER) 0.75 K/ L 0.24-0.36 H (test code = 415) EOSINOPHILS ABSOLUTE COUNT 0.04 K/ L 0.04-0.36 (BEAKER) (test code = 416) BASOPHILS ABSOLUTE COUNT (BEAKER) 0.01 K/ L 0.01-0.08 (test code = 417) IMMATURE GRANULOCYTES-RELATIVE 2 % 0-1 H PERCENT (BEAKER) (test code = 2803) BLOOD [id number] 22:01:23 Test Item Value Reference Range Interpretation Comments CULTURE (BEAKER) (test No growth in 5 days code = 1095) [id number] 11:34:25 Test Item Value Reference Range Interpretation Comments FIBRINOGEN LEVEL (BEAKER) (test 153 mg/dl 225-434 L code = 658) CBC W/PLT COUNT & AUTO [id number] 08:15:25 Test Item Value Reference Range Interpretation Comments WHITE BLOOD CELL COUNT (BEAKER) 4.9 K/ L 3.5-10.5 (test code = 775) RED BLOOD CELL COUNT (BEAKER) 2.06 M/ L 3.93-5.22 L (test code = 761) HEMOGLOBIN (BEAKER) (test code = 6.4 GM/DL 11.2-15.7 L 410) HEMATOCRIT (BEAKER) (test code = 18.9 % 34.1-44.9 L 411) MEAN CORPUSCULAR VOLUME (BEAKER) 91.7 fL 79.4-94.8 (test code = 753) MEAN CORPUSCULAR HEMOGLOBIN 31.1 pg 25.6-32.2 (BEAKER) (test code = 751) MEAN CORPUSCULAR HEMOGLOBIN CONC 33.9 GM/DL 32.2-35.5 (BEAKER) (test code = 752) RED CELL DISTRIBUTION WIDTH 18.4 % 11.7-14.4 H (BEAKER) (test code = 412) PLATELET COUNT (BEAKER) (test code 26 K/CU MM 150-450 L = 756) MEAN PLATELET VOLUME (BEAKER) 10.8 fL 9.4-12.3 (test code = 754) NUCLEATED RED BLOOD CELLS (BEAKER) 0 /100 WBC 0-0 (test code = 413) NEUTROPHILS RELATIVE PERCENT 66 % (BEAKER) (test code = 429) LYMPHOCYTES RELATIVE PERCENT 17 % (BEAKER) (test code = 430) MONOCYTES RELATIVE PERCENT 16 % (BEAKER) (test code = 431) EOSINOPHILS RELATIVE PERCENT 0 % (BEAKER) (test code = 432) BASOPHILS RELATIVE PERCENT 0 % (BEAKER) (test code = 437) NEUTROPHILS ABSOLUTE COUNT 3.21 K/ L 1.56-6.13 (BEAKER) (test code = 670) LYMPHOCYTES ABSOLUTE COUNT 0.85 K/ L 1.18-3.74 L (BEAKER) (test code = 414) MONOCYTES ABSOLUTE COUNT (BEAKER) 0.76 K/ L 0.24-0.36 H (test code = 415) EOSINOPHILS ABSOLUTE COUNT 0.02 K/ L 0.04-0.36 L (BEAKER) (test code = 416) BASOPHILS ABSOLUTE COUNT (BEAKER) 0.01 K/ L 0.01-0.08 (test code = 417) IMMATURE GRANULOCYTES-RELATIVE 1 % 0-1 PERCENT (BEAKER) (test code = 280) COMPREHENSIVE METABOLIC [id number] 06:42:13 Test Item Value Reference Range Interpretation Comments TOTAL PROTEIN 5.8 gm/dL 6.0-8.3 L (BEAKER) (test code = 770) ALBUMIN (BEAKER) 2.6 g/dL 3.5-5.0 L (test code = 1145) ALKALINE 100 U/L 40-150 PHOSPHATASE (BEAKER) (test code = 346) BILIRUBIN TOTAL 28.5 mg/dL 0.2-1.2 H (BEAKER) (test code = 377) SODIUM (BEAKER) 137 meq/L 136-145 (test code = 381) POTASSIUM (BEAKER) 3.5 meq/L 3.5-5.1 (test code = 379) CHLORIDE (BEAKER) 100 meq/L 98-107 (test code = 382) CO2 (BEAKER) (test 25 meq/L 22-29 code = 355) BLOOD UREA 13 mg/dL 7-21 NITROGEN (BEAKER) (test code = 354) CREATININE 2.92 mg/dL 0.57-1.25 H (BEAKER) (test code = 358) GLUCOSE RANDOM 108 mg/dL 70-105 H (BEAKER) (test code = 652) CALCIUM (BEAKER) 8.8 mg/dL 8.4-10.2 (test code = 697) AST (SGOT) 109 U/L 5-34 H (BEAKER) (test code = 353) ALT (SGPT) 42 U/L 6-55 (BEAKER) (test code = 347) EGFR (BEAKER) 18 Interpretatio n of eGFR (test code = 1092) mL/min/1.[address] age Description sq m Result G1 Stephanie l or high >=90 G2 Mildly decreased 60-89 G3a Mildl y to moderately 45-5 9 G3b Moderately to s everely 30-44 G4 Severl y decreased 15-29 G5 Kidney failure <15Reported eGF R is based on the CKD-EPI 2020 equation that d oes not use a race coefficientEsti mated GFR is not as accur ate as Creatinine Regina fara in predicting glom erular filtration rate . Estimated GFR is not appl icable for dialysis patien ts Strawhat Sizer ID - JANET MOperator ID - JANET MSpecimen markedly ictericMAGNESIUM 2022-05-12 06:40:54 Test Item Value Reference Range Interpretation Comments MAGNESIUM (BEAKER) (test code = 1.7 mg/dL 1.6-2.6 627) Strawhat Sizer ID - JANET MPROTHROMBIN [id number] 06:24:50 Test Item Value Reference Range Interpretation Comments PROTIME (BEAKER) 22.8 seconds 11.9-14.2 H (test code = 759) INR (BEAKER) (test 2.04 See_Comment [Automat ed message] code = 370) The system Vamo generated this result transmitted ref erence range: <=5.90. The reference range was not used to int erpret this result as normal/abnormal . RECOMMENDED COUMADIN/WARFARIN INR THERAPY RANGESSTANDARD DOSE: 2.0 - 3.0 Includes: PROPHYLAXIS for venous thrombosis, systemic embolization; TREATMENT for venous thrombosis and/or pulmonary embolus.HIGH RISK: Target INR is 2.5-3.5 for patients with mechanical heart valves.[id number] 10:07:08 Test Item Value Reference Range Interpretation Comments PHOSPHORUS (BEAKER) (test code = 3.1 mg/dL 2.3-4.7 604) Strawhat Sizer ID - MIGUEL WCOMPREHENSIVE METABOLIC [id number] 05:04:06 Test Item Value Reference Range Interpretation Comments TOTAL PROTEIN 6.2 gm/dL 6.0-8.3 (BEAKER) (test code = 770) ALBUMIN (BEAKER) 2.8 g/dL 3.5-5.0 L (test code = 1145) ALKALINE 97 U/L 40-150 PHOSPHATASE (BEAKER) (test code = 346) BILIRUBIN TOTAL 29.0 mg/dL 0.2-1.2 H (BEAKER) (test code = 377) SODIUM (BEAKER) 139 meq/L 136-145 (test code = 381) POTASSIUM (BEAKER) 3.5 meq/L 3.5-5.1 (test code = 379) CHLORIDE (BEAKER) 102 meq/L 98-107 (test code = 382) CO2 (BEAKER) (test 25 meq/L 22-29 code = 355) BLOOD UREA 23 mg/dL 7-21 H NITROGEN (BEAKER) (test code = 354) CREATININE 3.92 mg/dL 0.57-1.25 H (BEAKER) (test code = 358) GLUCOSE RANDOM 96 mg/dL 70-105 (BEAKER) (test code = 652) CALCIUM (BEAKER) 9.4 mg/dL 8.4-10.2 (test code = 697) AST (SGOT) 112 U/L 5-34 H (BEAKER) (test code = 353) ALT (SGPT) 49 U/L 6-55 (BEAKER) (test code = 347) EGFR (BEAKER) 13 Interpretatio n of eGFR (test code = 1092) mL/min/1.[address] age Description sq m Result G1 Stephanie l or high >=90 G2 Mildly decreased 60-89 G3a Mildl y to moderately 45-5 9 G3b Moderately to s everely 30-44 G4 Severl y decreased 15-29 G5 Kidney failure <15Reported eGF R is based on the CKD-EPI 2020 equation that d oes not use a race coefficientEsti mated GFR is not as accur ate as Creatinine Regina chaudhari in predicting glom erular filtration rate . Estimated GFR is not appl icable for dialysis patien ts Strawhat Sizer ID - MICHELLE WOperator ID - MICHELLE WSpecimen markedly [id number] 05:01:23 Test Item Value Reference Range Interpretation Comments THYROID STIMULATING HORMONE 1.951 uIU/mL 0.350-4.940 (BEAKER) (test code = 772) Strawhat Sizer ID - MICHELLE WT4, [id number] 05:01:22 Test Item Value Reference Range Interpretation Comments FREE T4 (BEAKER) (test code = 655) 0.69 ng/dL 0.70-1.48 L Strawhat Sizer ID - MICHELLE [id number] 04:59:02 Test Item Value Reference Range Interpretation Comments MAGNESIUM (BEAKER) (test code = 1.7 mg/dL 1.6-2.6 627) Strawhat Sizer ID Rosina MICHELLE WCBC W/PLT COUNT & AUTO [id number] 04:49:46 Test Item Value Reference Range Interpretation Comments WHITE BLOOD CELL COUNT (BEAKER) 5.4 K/ L 3.5-10.5 (test code = 775) RED BLOOD CELL COUNT (BEAKER) 2.49 M/ L 3.93-5.22 L (test code = 761) HEMOGLOBIN (BEAKER) (test code = 7.6 GM/DL 11.2-15.7 L 410) HEMATOCRIT (BEAKER) (test code = 22.7 % 34.1-44.9 L 411) MEAN CORPUSCULAR VOLUME (BEAKER) 91.2 fL 79.4-94.8 (test code = 753) MEAN CORPUSCULAR HEMOGLOBIN 30.5 pg 25.6-32.2 (BEAKER) (test code = 751) MEAN CORPUSCULAR HEMOGLOBIN CONC 33.5 GM/DL 32.2-35.5 (BEAKER) (test code = 752) RED CELL DISTRIBUTION WIDTH 18.0 % 11.7-14.4 H (BEAKER) (test code = 412) PLATELET COUNT (BEAKER) (test code 59 K/CU MM 150-450 L = 756) MEAN PLATELET VOLUME (BEAKER) 12.1 fL 9.4-12.3 (test code = 754) NUCLEATED RED BLOOD CELLS (BEAKER) 0 /100 WBC 0-0 (test code = 413) NEUTROPHILS RELATIVE PERCENT 71 % (BEAKER) (test code = 429) LYMPHOCYTES RELATIVE PERCENT 17 % (BEAKER) (test code = 430) MONOCYTES RELATIVE PERCENT 11 % (BEAKER) (test code = 431) EOSINOPHILS RELATIVE PERCENT 1 % (BEAKER) (test code = 432) BASOPHILS RELATIVE PERCENT 0 % (BEAKER) (test code = 437) NEUTROPHILS ABSOLUTE COUNT 3.83 K/ L 1.56-6.13 (BEAKER) (test code = 670) LYMPHOCYTES ABSOLUTE COUNT 0.90 K/ L 1.18-3.74 L (BEAKER) (test code = 414) MONOCYTES ABSOLUTE COUNT (BEAKER) 0.59 K/ L 0.24-0.36 H (test code = 415) EOSINOPHILS ABSOLUTE COUNT 0.04 K/ L 0.04-0.36 (BEAKER) (test code = 416) BASOPHILS ABSOLUTE COUNT (BEAKER) 0.02 K/ L 0.01-0.08 (test code = 417) IMMATURE GRANULOCYTES-RELATIVE 1 % 0-1 PERCENT (BEAKER) (test code = 2801) [id number] 04:39:12 Test Item Value Reference Range Interpretation Comments FIBRINOGEN LEVEL (BEAKER) (test 201 mg/dl 225-434 L code = 658) PROTHROMBIN [id number] 04:39:10 Test Item Value Reference Range Interpretation Comments PROTIME (BUDDY) 23.3 seconds 11.9-14.2 H (test code = 759) INR (BEAKER) (test 2.09 See_Comment [Automat ed message] code = 370) The system [employer] generated this result transmitted ref erence range: <=5.90. The reference range was not used to int erpret this result as normal/abnormal . RECOMMENDED COUMADIN/WARFARIN INR THERAPY RANGESSTANDARD DOSE: 2.0 - 3.0 Includes: PROPHYLAXIS for venous thrombosis, systemic embolization; TREATMENT for venous thrombosis and/or pulmonary embolus.HIGH RISK: Target INR is 2.5-3.5 for patients with mechanical heart valves.SARS-COV2/RT-PCR ([facility]) 2022-05-11 03:53:21 Test Item Value Reference Range Interpretation Comments SARS-COV2/RT-PCR (test code = Negative Negative [id number]) Negative result for this test determines that SARS-CoV-2 RNA was not present in the specimen above the Limit of Detection (LOD). However, Negative results do not preclude SARS-CoV-2 infection and should not be used as the sole basis for treatment or patient management decisions. Negative results must be combined with clinical observations, patient history, and epidemiological information. A false negative result may occur if a specimen is improperly collected, transported, or handled. A false negative result should be considered if patient's recent exposures or clinical presentation indicate that COVID-19 (SARS-CoV-2) is likely and diagnostic tests for other causes of illness are negative. Re-testing should be considered in cases of suspected false negatives.The limit of detection for this assay is 100 copies/mL.This SARS-CoV-2 test is a real-time RT_PCR test intended for the qualitative detection of nucleic acid from SARS-CoV-2 in a nasopharyngeal swab specimen collected from individuals suspected of COVID-19 by their healthcare provider.This test has not been Food and Drug Administration (FDA) cleared or approved. This is a modified version of an approved Emergency Use Authorization (EUA) and is in the process of review by the FDA. Once authorized by the FDA, the issued EUA will be effective until the declaration that circumstances exist justifying the authorization of the emergency use of in vitro diagnostic tests for detection and/or diagnosis of COVID-19 is terminated under Section 564(b)(2) of the Act or the EUA is revoked under Section 564(g) of the Act.Testing was performed using [employer] SARS-CoV-2 assay.Fact Sheet for Healthcare Providers:https://www.[employer]/juan/RT SARS-CoV-2 HCP Fact Sheet 51- 906965.pdfFact Sheet for Healthcare Patients:https://www.[employer]/juan/RT SARS-CoV-2 Patient Fact Sheet EN 51-337118P1.pdfCBC (HEMOGRAM ONLY)2022-05-10 13:37:05 Test Item Value Reference Range Interpretation Comments WHITE BLOOD CELL COUNT (BEAKER) 4.5 K/ L 3.5-10.5 (test code = 775) RED BLOOD CELL COUNT (BEAKER) 2.58 M/ L 3.93-5.22 L (test code = 761) HEMOGLOBIN (BEAKER) (test code = 8.0 GM/DL 11.2-15.7 L 410) HEMATOCRIT (BEAKER) (test code = 23.4 % 34.1-44.9 L 411) MEAN CORPUSCULAR VOLUME (BEAKER) 90.7 fL 79.4-94.8 (test code = 753) MEAN CORPUSCULAR HEMOGLOBIN 31.0 pg 25.6-32.2 (BEAKER) (test code = 751) MEAN CORPUSCULAR HEMOGLOBIN CONC 34.2 GM/DL 32.2-35.5 (BEAKER) (test code = 752) RED CELL DISTRIBUTION WIDTH 18.3 % 11.7-14.4 H (BEAKER) (test code = 412) PLATELET COUNT (BEAKER) (test code 60 K/CU MM 150-450 L = 756) MEAN PLATELET VOLUME (BEAKER) 11.6 fL 9.4-12.3 (test code = 754) NUCLEATED RED BLOOD CELLS (BEAKER) 0 /100 WBC 0-0 (test code = 413) CALCIUM, [id number] 07:11:07 Test Item Value Reference Range Interpretation Comments CALCIUM IONIZED (BEAKER) (test 1.09 mmol/L 1.12-1.27 L code = 698) PH, BLOOD (BEAKER) (test code = 7.40 1810) [id number] 06:52:35 Test Item Value Reference Range Interpretation Comments PHOSPHORUS (BEAKER) (test code = 1.5 mg/dL 2.3-4.7 LL 604) Strawhat Sizer ID - ADMINCOMPREHENSIVE METABOLIC [id number] 06:24:41 Test Item Value Reference Range Interpretation Comments TOTAL PROTEIN 6.7 gm/dL 6.0-8.3 (BEAKER) (test code = 770) ALBUMIN (BEAKER) 3.1 g/dL 3.5-5.0 L (test code = 1145) ALKALINE 103 U/L 40-150 PHOSPHATASE (BEAKER) (test code = 346) BILIRUBIN TOTAL 30.9 mg/dL 0.2-1.2 H (BEAKER) (test code = 377) SODIUM (BEAKER) 139 meq/L 136-145 (test code = 381) POTASSIUM (BEAKER) 3.6 meq/L 3.5-5.1 (test code = 379) CHLORIDE (BEAKER) 101 meq/L 98-107 (test code = 382) CO2 (BEAKER) (test 23 meq/L 22-29 code = 355) BLOOD UREA 16 mg/dL 7-21 NITROGEN (BEAKER) (test code = 354) CREATININE 2.91 mg/dL 0.57-1.25 H (BEAKER) (test code = 358) GLUCOSE RANDOM 97 mg/dL 70-105 (BEAKER) (test code = 652) CALCIUM (BEAKER) 9.9 mg/dL 8.4-10.2 (test code = 697) AST (SGOT) 106 U/L 5-34 H (BEAKER) (test code = 353) ALT (SGPT) 54 U/L 6-55 (BEAKER) (test code = 347) EGFR (BEAKER) 18 Interpretatio n of eGFR (test code = 1092) mL/min/1.[address] age Description sq m Result G1 Stephanie l or high >=90 G2 Mildly decreased 60-89 G3a Mildl y to moderately 45-5 9 G3b Moderately to s everely 30-44 G4 Severl y decreased 15-29 G5 Kidney failure <15Reported eGF R is based on the CKD-EPI 2020 equation that d oes not use a race coefficientEsti mated GFR is not as accur ate as Creatinine Regina chaudhari in predicting glom erular filtration rate . Estimated GFR is not appl icable for dialysis patien ts Strawhat Sizer ID - ADMINOperator ID - ADMINSpecimen markedly ictericMAGNESIUM 2022-05-10 06:02:55 Test Item Value Reference Range Interpretation Comments MAGNESIUM (BEAKER) (test code = 1.7 mg/dL 1.6-2.6 627) Strawhat Sizer ID - ADMINCBC W/PLT COUNT & AUTO [id number] 05:50:38 Test Item Value Reference Range Interpretation Comments WHITE BLOOD CELL COUNT (BEAKER) 4.6 K/ L 3.5-10.5 (test code = 775) RED BLOOD CELL COUNT (BEAKER) 2.55 M/ L 3.93-5.22 L (test code = 761) HEMOGLOBIN (BEAKER) (test code = 7.8 GM/DL 11.2-15.7 L 410) HEMATOCRIT (BEAKER) (test code = 22.8 % 34.1-44.9 L 411) MEAN CORPUSCULAR VOLUME (BEAKER) 89.4 fL 79.4-94.8 (test code = 753) MEAN CORPUSCULAR HEMOGLOBIN 30.6 pg 25.6-32.2 (BEAKER) (test code = 751) MEAN CORPUSCULAR HEMOGLOBIN CONC 34.2 GM/DL 32.2-35.5 (BEAKER) (test code = 752) RED CELL DISTRIBUTION WIDTH 17.6 % 11.7-14.4 H (BEAKER) (test code = 412) PLATELET COUNT (BEAKER) (test code 61 K/CU MM 150-450 L = 756) MEAN PLATELET VOLUME (BEAKER) 9.5 fL 9.4-12.3 (test code = 754) NUCLEATED RED BLOOD CELLS (BEAKER) 0 /100 WBC 0-0 (test code = 413) NEUTROPHILS RELATIVE PERCENT 73 % (BEAKER) (test code = 429) LYMPHOCYTES RELATIVE PERCENT 13 % (BEAKER) (test code = 430) MONOCYTES RELATIVE PERCENT 12 % (BEAKER) (test code = 431) EOSINOPHILS RELATIVE PERCENT 1 % (BEAKER) (test code = 432) BASOPHILS RELATIVE PERCENT 0 % (BEAKER) (test code = 437) NEUTROPHILS ABSOLUTE COUNT 3.38 K/ L 1.56-6.13 (BEAKER) (test code = 670) LYMPHOCYTES ABSOLUTE COUNT 0.62 K/ L 1.18-3.74 L (BEAKER) (test code = 414) MONOCYTES ABSOLUTE COUNT (BEAKER) 0.54 K/ L 0.24-0.36 H (test code = 415) EOSINOPHILS ABSOLUTE COUNT 0.03 K/ L 0.04-0.36 L (BEAKER) (test code = 416) BASOPHILS ABSOLUTE COUNT (BEAKER) 0.01 K/ L 0.01-0.08 (test code = 417) IMMATURE GRANULOCYTES-RELATIVE 1 % 0-1 PERCENT (BEAKER) (test code = 2801) TISSUE [id number] 11:38:47Surgical Pathology Report Case: [id number] Authorizing Provider: Cecilia Hopson, Collected: 05/05/2022 03:35 PM Ordering Location: [address] Received: 05/07/2022 07:48 AM Servi ce Pathologist: Kacie Childs MD Specimens: A) - Polyp, Colon - Right/Ascending, ascending colon polyp B) - Polyp, Colon - Left/Descending, descending colon polyp A. COLON, RIGHT/ASCENDING, POLYPECTOMY: - TUBULAR ADENOMAB. COLON, LEFT/DESCENDING, POLYPECTOMY: - TUBULAR ADENOMA Signing Pathologist Direct Phone Line: [phone] signed by Kacie Childs MD on 05/09/2022 at 11:38 [id number]. Polyp, Colon - Right/Ascending.Received in formalin labeled with the patient's name, medical record number and "polyp, colon-right/ascending" are 2 galarza soft tissue fragments measuring 0.4 cm and 0.2 cm submitted in toto in A1.B. Polyp, Colon - Left/Descending.Received in formalin labeled with the patient's name, medical record number and "polyp, colon-left/descending descending" is a 0.8cm galarza-pink polyp. The base is inked blue, the polyp is bisected and the specimen is entirely submitted in B1.JAVIER Lassiter, PA (ASCP)production assistant-B. No high-grade dysplasia or malignancy is identified.[facility], Department of Pathology, [address] [place] [address], Tel [phone], [facility], [address] [place] [address], [facility], [facility] of [facility]ology, [address] [place] [address], FLK, TUNNELED CATHETER [id number] 11:15:00Reason for Central Line/PICC?->Need for hemodialysis accessReason for exam:->had shaq and needs tdc to be placed for outpatient hd [facility] 1965 Sex: FFINAL REPORT Conversion of a nontunneled to tunneled dialysis catheter. History: Renal failure. Modality: Fluoroscopy. Sedation: Moderate sedation was administered. 1 mg of Versed and 50 mcg of fentanyl IV was used for moderate sedation monitored under my direction. Total intra-servicetime of sedation was 20 minutes. The patient's vital signs were monitored throughout the procedure an d recorded in the patient's medical record by the nurse. Swimming Pool Serviceperson: Burno Chirinos MD. Cartridge Belt Puncher: Estevan Guzman M.D. (fellow). Approach: Right internal jugular vein Estimated blood loss: < 5 cc. Specimen: None. Fluoroscopy Time: 0.1Reference Air Kerma (Ka, r): 0.7 mGy. Technique: Informed written consent was obtained. Discussion of risks, benefits, and alternatives were made with the patient. The patient expressed understanding and agreed to proceed. All elements maximal sterile barrier technique was utilized for this procedure, including utilization of sterile scrub solution for skin prep, a large sterile sheet to cover the areas of the patient that were not prepped, and hand hygiene,mask, head covering, and sterile gown for performing radiologist and scrub technologist. The skin was anesthetized with 2% lidocaine. A 0.35 inch diameter guidewire was inserted through the existing nontunneled dialysis catheter into the IVC. A subcutaneous tunnel was created in the right anterior chest wall by blunt dissection. A 19 cm tip to cuff 15.5 Bulgarian Duraflow 2 catheter was brought through the tunnel. The existing nontunneled hemodialysis catheter was then removed over the guidewire. A peel-away sheath was placed in the right IJ vein and the catheter was advanced through the sheath, with its distal tip terminating in the right atrium. The peel-away sheath was removed. The ports were flushed and aspirated easily following placement. The catheter was sutured to the skin to secure its placement. The small jugular incision site was closed using resorbable suture.. A resorbable pursestring sutures placed at the catheter exit site. Vital signs were monitored throughout the procedure by a madiha se, and remained stable. The patient tolerated the procedure well and left the department in the same condition. Results: Spot radiograph of the chest demonstrates the new dialysis catheter to lie in the expected position with its tip overlying the superior right atrium. Impression: Successful, uncomplicated conversion of a nontunneled right internal jugular to a tunneled dialysis catheter. Signed: Bruno Chirinos MDReport Verified Date/Time: 05/09/2022 11:15:35 Reading Location: [place] [address] Angio Body Reading Room TOXOPLASMA GONDII ANTIBODY, IGG 2022-05-09 10:19:18 Test Item Value Reference Range Interpretation Comments TOXOPLASMA GONDII IGG QUANTITATIVE < IU/mL <10.0 (BEAKER) (test code = 3428) Toxoplasma Gondii IgG Result Interpretation: </= 9.9 IU/mL Normal 10-11 IU/mL Equivocal >/= 12IU/mL PositiveCOMPREHENSIVE METABOLIC [id number] 06:43:27 Test Item Value Reference Range Interpretation Comments TOTAL PROTEIN 5.5 gm/dL 6.0-8.3 L (BEAKER) (test code = 770) ALBUMIN (BEAKER) 2.5 g/dL 3.5-5.0 L (test code = 1145) ALKALINE PHOSPHATASE 80 U/L 40-150 (BEAKER) (test code = 346) BILIRUBIN TOTAL 25.6 mg/dL 0.2-1.2 H (BEAKER) (test code = 377) SODIUM (BEAKER) (test 140 meq/L 136-145 code = 381) POTASSIUM (BEAKER) 3.4 meq/L 3.5-5.1 L (test code = 379) CHLORIDE (BEAKER) 105 meq/L 98-107 (test code = 382) CO2 (BEAKER) (test 26 meq/L 22-29 code = 355) BLOOD UREA NITROGEN 28 mg/dL 7-21 H (BEAKER) (test code = 354) CREATININE (BEAKER) 4.34 mg/dL 0.57-1.25 H (test code = 358) GLUCOSE RANDOM 98 mg/dL 70-105 (BEAKER) (test code = 652) CALCIUM (BEAKER) 9.0 mg/dL 8.4-10.2 (test code = 697) AST (SGOT) (BEAKER) 97 U/L 5-34 H (test code = 353) ALT (SGPT) (BEAKER) 57 U/L 6-55 H (test code = 347) EGFR (BEAKER) (test 13 mL/min/1.73 ESTIMA KEVIN GFR IS code = 1092) sq m NOT ACCURATE CREATININE CLEARANCE IN PREDICTING GLOMERULAR FILTRATION RATE . ESTIMATED GFR I S NOT APPLICABLE FOR DIALYSIS PATIEN TS. Strawhat Sizer ID - MICHELLE WOperator ID - MICHELLE WSpecimen markedly ictericMAGNESIUM 2022-05-09 06:39:46 Test Item Value Reference Range Interpretation Comments MAGNESIUM (BEAKER) (test code = 1.8 mg/dL 1.6-2.6 627) Strawhat Sizer ID - MICHELLE [id number] 06:28:21 Test Item Value Reference Range Interpretation Comments PARTIAL THROMBOPLASTIN TIME 51.7 seconds 22.5-36.0 H (BEAKER) (test code = 760) PROTHROMBIN TIME/[id number] 06:27:18 Test Item Value Reference Range Interpretation Comments PROTIME (BEAKER) 22.5 seconds 11.9-14.2 H (test code = 759) INR (BEAKER) (test 2.00 See_Comment [Automat ed message] code = 370) The system [employer] generated this result transmitted ref erence range: <=5.90. The reference range was not used to int erpret this result as normal/abnormal . RECOMMENDED COUMADIN/WARFARIN INR THERAPY RANGESSTANDARD DOSE: 2.0 - 3.0 Includes: PROPHYLAXIS for venous thrombosis, systemic embolization; TREATMENT for venous thrombosis and/or pulmonary embolus.HIGH RISK: Target INR is 2.5-3.5 for patients with mechanical heart valves.CBC W/PLT COUNT & AUTO [id number] 06:09:56 Test Item Value Reference Range Interpretation Comments WHITE BLOOD CELL COUNT (BEAKER) 5.5 K/ L 3.5-10.5 (test code = 775) RED BLOOD CELL COUNT (BEAKER) 2.15 M/ L 3.93-5.22 L (test code = 761) HEMOGLOBIN (BEAKER) (test code = 6.7 GM/DL 11.2-15.7 L 410) HEMATOCRIT (BEAKER) (test code = 19.3 % 34.1-44.9 L 411) MEAN CORPUSCULAR VOLUME (BEAKER) 89.8 fL 79.4-94.8 (test code = 753) MEAN CORPUSCULAR HEMOGLOBIN 31.2 pg 25.6-32.2 (BEAKER) (test code = 751) MEAN CORPUSCULAR HEMOGLOBIN CONC 34.7 GM/DL 32.2-35.5 (BEAKER) (test code = 752) RED CELL DISTRIBUTION WIDTH 17.9 % 11.7-14.4 H (BEAKER) (test code = 412) PLATELET COUNT (BEAKER) (test code 39 K/CU MM 150-450 L = 756) MEAN PLATELET VOLUME (BEAKER) 11.1 fL 9.4-12.3 (test code = 754) NUCLEATED RED BLOOD CELLS (BEAKER) 0 /100 WBC 0-0 (test code = 413) NEUTROPHILS RELATIVE PERCENT 74 % (BEAKER) (test code = 429) LYMPHOCYTES RELATIVE PERCENT 14 % (BEAKER) (test code = 430) MONOCYTES RELATIVE PERCENT 11 % (BEAKER) (test code = 431) EOSINOPHILS RELATIVE PERCENT 0 % (BEAKER) (test code = 432) BASOPHILS RELATIVE PERCENT 0 % (BEAKER) (test code = 437) NEUTROPHILS ABSOLUTE COUNT 4.07 K/ L 1.56-6.13 (BEAKER) (test code = 670) LYMPHOCYTES ABSOLUTE COUNT 0.76 K/ L 1.18-3.74 L (BEAKER) (test code = 414) MONOCYTES ABSOLUTE COUNT (BEAKER) 0.63 K/ L 0.24-0.36 H (test code = 415) EOSINOPHILS ABSOLUTE COUNT 0.02 K/ L 0.04-0.36 L (BEAKER) (test code = 416) BASOPHILS ABSOLUTE COUNT (BEAKER) 0.00 K/ L 0.01-0.08 L (test code = 417) IMMATURE GRANULOCYTES-RELATIVE 1 % 0-1 PERCENT (BEAKER) (test code = 2801) [id number] 15:12:19 Test Item Value Reference Range Interpretation Comments Case Report (test code Medical Cytology = 104) Report Case: [id number] Authorizing Provider: Stephanie Howard MD Collected: 05/07/2022 05:09 PM Ordering Location: [address] Received: 05/07/2022 05:09 PM Service Pathologist: Geovany Stubbs MD Specimen: Urine, Bladder Wash DIAGNOSIS (test code = a2clySUcSAVdl9boKZGvcR 3220) FuZzEwMzNcZnRuYmpcdWMx IHtccnRmMVxlcGljOTYwMl rnofGvAWIygSIwZ7Qkcatp WNxlKU0rDS7diKtyqSJvhI PeEXMfMqTls7gka312cBEl r4vgDNOJtwvcjLn3nXmsK3 3be8P6PlguZ17xiXNhXDZ4 CPMyIEGrkSLmFBCtTYB6NJ AzyUXjP5pmBBEmFH1sngjc ULtxFQauIKXkqWV6BVPayL IjL3BqGYIeGBouPBEtgxh8 DiXmVk6bsAFrxIgwRJszPX JkXHBsYWluXGZzMjAgVVJJ FfGiSHEDXWKFSXSaY5PTTI rRCnWcD6eBB4SEIC1GSTle bGluZSAgICAtIFJBUkUgQV XXVVaGZRmkL4TUAYZaEYXW A0YBVPweKOAjEBFoXTHZWI ZhT80teZFuqOdfQRC7o1ep dGYxXHNzdGUxODAwMFxhbn NpXGRlZmxhbmcxMDMzXGZ0 bmJqXHVjMVxkZWZmMHtcZm 5kkEPgcUapDzVmIHXog2xu qkKGjiroyNv7k2pzTTRbNy B8tAHfQQhaA6tbueRsxRAr QOOuXTd9bO69TFZnfP9pkR MxNPbyteFnScP8JBppYRBj IpC9XYVeuELzBKUrI9amGN QwXGdyZWVuMFxibHVlMCA7 qRnuw8A9rDWuaAKoyYrzRo IkStDuJtOBv5JsSQp9sQaf Z8MpGIGzIdV6tDSdFHZdMM aiQCVaODDzqbP7iN08BPcu cjV7nZXjk8Sif54qh960iT 8niHVzDJD1RMMgIDLpyWLx CMIeASH8FPFjeTSsM0beUB LuBP4epiwaWVnqPZjpZZPi sWW2SZBtuAViX6JgDXBxJA uaCDKaoka2RjHbSn9xbZWl lJezBAcmd1qvp0aipIHnCs h7DXOeJsQfUcvrXVtdn2Nr d9ojQNMexy0hCPX7oSJhnU afr1B4lJGpPEQhgIUwIRSc SE9dvGVpJZNutV2ahedvJC BnYnJkcmhlYWRccGdicmRy Ma2mpOnoECD4XZnuK6jneG 8qEcC8JHudJ4jktX8sSLp7 TFnnZISuhXW1igH2RVDubX UrU3MfuE8bUYCuCF7dxiz6 s3mcAFC6TSasZVMxXiJ4wi O2VRNhwLXtSANjpIvcUZnl z575JAT3NwEzNAGgb5RnK2 CslTirT84hbFutO39lSMBq eIchwC7tmJoatC4hVbGmDm LkPFdrjItlRJ9yZERiZ0zo iWQnJORsCDIvI4mhLaSjoE 8jaPzeDLflvbXxIUYgQle4 FBSzuOCtYUUsVov0BZOiUK OlN89zhuuvHTD6hU9mp8we p2IsFHizTBM8LFEsd26qFK ayypF7CFdmHa91KDgeNVK9 MQpccGFyfX0= COMMENT (test code = q9iniWCeNMCnrXZ8JxDmTB 8090) Ard0wpr4NrpDJqgRRmVQot wBFbijNgnq39pDE7fJ75YJ 7zNTJqGcY4GZTeiaD8Qmg4 QDJyMFCorOBjE308z3mkn3 fneuNujNN6vAhbQYMaoimm SpB2UTmxSHWbesvsEWb6IE rxCTDlsTV3TZJdsFYtT7Gl YGXqRW1imaz4ZCP7YNpaSE UbPzH8CSOtsUBxXNLurZqa XVzgx997XGH2VgBiTYLczk DmtFcuwO4eXqOvUDHZqZPr aG4siWInlY42cfEbPSdvC2 r4z1VcgzEpq1WwBrJvqAis TVWvv1UjEChcPWujZ5RweY IzFA2yRFTlpGQvHVRfCS0k zpG7QVXfH9TvaCHxPEQyrh IsU7OqdPLcs9b6kDKsbAge yMgrmR9ezhSxs1ZlJJ86K7 ixRWYtvT4nF9i7p3RxWUYj gXPwkxE7kD5iWB6gJEuptv WlrNpiwiFdxDAwAFGdVB1o fEQkDL3jJPOyIMJeWSUcQt CYjgWkOvQxh9PeSToxG8pp F6KnHVYttYFfqUtnyApubG NpCVXvgY9cyMKbY4DgtRKt FONeTGLdGC5tEJZwNEQuZB Ccc5EgQVevzCMwF1ykbcdh RXnqxC3rIFJfjj2= CPT Code(s) (test code o9vfxUPgZYUpwPG9DdAlMA = 3357) Gjd8myt0CalLKlqDKyBJft kZPzsxWuxy24mFM0hA20RX 7jTEZxPbH4LRYochE7Loe3 OQLyGNNevHIoX513k4fia6 spepKraHN3uTodYAKnghhz QlE2SPamMRHlxaqyTLl4UC kcEYZdmAT8FBHyaOTzN2Ds EIDrSZ1hvrz8MRR2QFoqNI ReVzI3VFJkfBRlBUTcwZgk ECtrn814LUV3DuBjZBEowx QhxNhjpR9ySeHpYUO9JUMx OFxwYXJ9 CLINICAL DATA (test t2tmyEPsQIBagLJ3RbSiGH code = 3358) Aev1dec9NwsRCyoLYuKRpe vLFtvkOzmv75hAU1fK59OA 3yXGUtPuX1IZBiajX8Ppl0 LCTqFEDpnREeZ237j9vpb0 edmsMkhZN2tKxwVQZqzrdt UzQ9DNssRXNzsuzqZNb8ZN skWBYwcXB5TORaxDRhE6Sw LRJaNU9lxbf4UPM2QQasNS OxVwF7YSPfkAMrEFRdkMyt UWfwa709QQI6HhJpIGFdpr DlwAuucD1iDoClJJCSbvQl c3JdehTxVMPuoe0nID7RME Zwp0BjaLTqAApbtTAlrFDx ZiBkZWNvbXBlbnNhdGVkIG JjK86gc5rgXpVenAHifH2a fMYnXUVwsYOgTUYsD71pe7 nsUcXrCRWqqQq0vFLqVGsv yC1jrRAwVUQEY7naUS2aXK UBRQEqG3WzAVNCQJLTXdVu w63hqBg6PTAzKl8xQZ0apl oyZvTkby3aEFHBSwDqwKLy BKvfdZAuZD7hNYhGD1QhWC gfUUGyJUzkGOCvpGzsW3Rp gEL6XPBjP7LxOCwlvDqgdj 2yIlcaWRXhlcbcuw5ge5As Q55nlUMid8VjyvMvTH44OO LgKGOusU0vMDLpZIRtvxKs lW6drSZcOXr3dSOnlUYhh5 m6OXDaXLZ8cr7eGKKlzVki VI8bTDWezwhxICIhav13WF CgyD6xr8Fvx48yQCEohxWd t19ol2YeWKWiIFYhkN8wf0 d6iUJpoaGtjWHkNHmsKlBs oGnagKN5XGjgFKbnzGV2zU QlLXXnk3IlVTUtFXIkgC7d zlqsKbnvZDJuqsBqr2e7sB 8eTJQhMPXcu04eGMZ4tOSh nZ5aIFQoHwJliLMoXarmRO J9 SPECIMEN SOURCE (test f9idbBReRGUbxRE8KiFnFH code = 3377) Wsv3nxd6PuvFEujIMnAVal cDYrttTpxh34hZU9kV29FA 5bJSFpVjP2QEBdyyV9Kug3 KEXdLKWzjBLiZ745b4rys8 yngyOdyXK5cQtjWPUvjlbn SaF4CYjoYRIbxgcpKHb5KV zsACAopPM8OXXygNAlS3Bi XBQmLI7cghy2QGE4BOnvON VrGuE2BSPwzTDlKUKlzHek CXsrd597KQF8CjDbNBUylh UwxSfqpX8rBoGiHWHDTjsQ RSwgQkxBRERFUiBXQVNISU 3LMRKbbr5= GROSS DESCRIPTION (test m6xoeSBlRHQflBZ4MnHwEN code = 5238195939) Drl0xnk3UhlSOdxQWpSWtt gFHsdjLyeo64vQZ9wW92AO 3tFRTcLvF2NODzaiL5Dog9 DCHzWDIkjYCoM610d3itp0 pfpoCvmFN3bFjuELWevmxp LaB4OTunIUUgacieRQv9HM uiUNGnnQE2XWTacQXnV1Xf EQSdDR1xuwp7ONR7LOswTF YeIsW9HXUpuSVcERKemCbx SEeua483RDQ8IvHpJXTnvn Y7HHsfQNPjA0NmS4WiBVej LIY6NAVoGVZePPSoPDCzRV QmHKtpdzE8w3rrYAEfxCSs LZB4YUzgkOZvNPGqFBJzGB xkYiBPVlIgIiAyODQyOTMw MkP8DAe6UTRBKmDlOgAvTz g3Cce6JiJzGPc9OOt5DYfF RxP6CDA7PFD4ARguLFIqDE BjJMj4IKPyKRybaAKqGTGh LWFzKZtyBThhT26uzWurnS 5cZnMyMCBBLiBVcmluZSwg QmxhZGRlciBXYXNoLlxwYX JcZnMyMCBSZWNlaXZlZCAy KDEqeOGeaPFjtK44DGBkuO gyVdJgbmDyMRKmBYN9PNW8 dT8pyHyqmr98CXFvuUZcDC I6LY6nrGjnKVUrZ4RxX1Qa cdD4BSJazc4= MICROSCOPIC DESCRIPTION g0ekwRFuSYYbcDA4YwToIK (test code = 3371) Jfb0gow0ThmZUhmQGvNNwx dUAkoeCtlq83eAY5mX31PS 4sWPBjWkM0RHKbfgA7Jot4 BCYfXTDymGPqQ166r6tbr0 pkhoFfnVI8uDkyAZWpgjxe KkK5KTflQAWymhgiQHy0XO zmHGBwnBP8MUNldUAbX2Py XWKhES3txjm2RCR9GXutLF EcWpN3LBFqvZKqTGMujEde YVixr086PIZ7IsDeTZBmnw UotUqnyG6dPzSuCZQBMTSo r3ApKDNmPQooESC6 STATEMENT OF ADEQUACY Satisfactory (test code = 2757) Gross assessment was [facility] performed at ([facility], = 2777) Department of Pathology, [address] [place] [address], Technical component was [facility] performed at ([facility], = 2778) Department of Pathology, [address] [place] [id number], Professional component [facility] was performed at ([facility], code = 2779) Department of Pathology, [address] [place] [phone], [facility] 15:12[facility]19 Test Item Value Reference Range Interpretation Comments Case Report (test code Medical Cytology = 104) Report Case: [id number] Authorizing Provider: Stephanie Howard MD Collected: 05/07/2022 05:09 PM Ordering Location: [address] Received: 05/07/2022 05:09 PM Service Pathologist: Geovany Stubbs MD Specimen: Urine, Bladder Wash DIAGNOSIS (test code = y2mysDTnETAiv8aaQIKoaF 3220) FuZzEwMzNcZnRuYmpcdWMx IHtccnRmMVxlcGljOTYwMl nrhtFvHRPeaZEkI6Uqagga RVcxJI7gIX1ubPostZJjjO GpCRWgUaCru3kjd906hPGt x6vqNZQEyzoytZo7zRnnE0 8dr9Q1UqmjC36urKAhXUG0 VIEiRLZdkKIpZDIuDLK7SI JcuCPhE0okPNUfIL0krgis OIduELjtZCKqqZX1TAHksG ZvT1ShZOYvCMxjVQEijko7 YzQgZx1iqTUlaXhuHOljXS JkXHBsYWluXGZzMjAgVVJJ OtJwGSGRMBFOBUBnD4GAFR xZGgLpV3mGQ4VWWI5HAXhb bGluZSAgICAtIFJBUkUgQV WVRFqMISrgH7YTKGZiCUMO O1OHFLdmPJOtYKRkSAWHSC KmT31ugAIepJmzZIZ1w8cj dGYxXHNzdGUxODAwMFxhbn NpXGRlZmxhbmcxMDMzXGZ0 bmJqXHVjMVxkZWZmMHtcZm 8dhQKnaUquUiPmZEVhy3cw vfHIaxzinDk3f9qpBNJwBj F7yFAgQCseO1opvyHemZKp ZGZbIZh6wX24HUMwpV5gnD FlFZucuvFxZdN2JNguCBNm DoG8ULQrwEQwBMBeA1tvEG QwXGdyZWVuMFxibHVlMCA7 zVvjy9D8iBYaeHHkaAupQc PrIqEyYnTPg5LmMDl7jYtf O4KbTYRwQzW8wTMoCJZdAU iyAEVqSBTkfrC9cD91FMhl qeK8tINlz8Jle46rb642bE 0pkAFcUTJ7UWRhISLiiTRl ZYPnTTJ0QQKbmXBjF2qoMP JkNB1jbsxmLYwvYBloRTKr sDV9HHWxlBNhN8LzCVRyHD kzGJLbtel4HcFrPr4jgVMm qUzeYWnya0byp1xmcAOfDc k6VXGkFlUkQsgjIMwyg4Aw v6vfOAMqha1gTPR1oAJdcK ltn3S4jYQzJEQquXOtODNj OH7bjVXoHYHlzB2qywjcVJ BnYnJkcmhlYWRccGdicmRy Rx7giIvqNNC3LQofI5hyeW 8uDgH1CKbxM5lvrJ2uJDe0 EMhkVEGvsUK0daO8ERBebE PuO3ZieR3jYWWaFO8fsgp2 y0ddLBP2DIjlETVgJiJ1cu R3AXSvlAGpMWJruHqbPCtp k058EUT6WoLvXIDti5XeF0 RpnQvxA07gcYgoG11pBGJo nXwbyL2niQhktK5iGgOzTy GqCYtwuXqlSK2lVJCxV2qm rBXeKQJtQZNuU0gsDqRgtH 2fbBgnOLlxdyHvBAIjUty0 RPAefSOtMYNbUxn5INDyJU VpJ04pqogwELH3cO0yz8wx e3UtHFmvWHF3LTEae46sSU aoagO7ZNwzTm20GQfqLAN7 MQpccGFyfX0= COMMENT (test code = a0ujnIHpLIEtjLS4QqZmTR 2347) Gvz7ihs1PdhYSgyYEgGMnq jTMixvIymp31pMJ4qV49DY 6vNFWuTeS7DTUcxbZ1Did8 SDFnMNFgjUNjK039b3jdp3 rvzfYphWP4dFczYPNnyckf ClH7TWbtUEJqzrqoOMh6HG pgWRBeaTI8KRYhmYIyJ4Ga KCHfVM1ouwh2HFR0ZSepDL QpSzM7XZPiaMHxVEXbmEhl OAxzo249TIP6YuPzGSXhmu UrsGeyhQ2uQnXfLNKLhIQh zQ3rfSBrtC78ejYzCBgpX2 z5z0RtwaXen8KiSeQwfSiv OCMsc7TbCCqgIRojF4UtuQ YyXW4bAYFikCJeWGLjTG4m ruM4ECUwU5NxeTXoISLkjg EuB7IfcAIso4d8jIYpmJhs eHatkG1mutNpu7CoFQ39Y0 dcUXQvpD8eQ3w5h1OqJWNt zGNwajQ6oF1iYF4zDEoekg MroEjgthSzhPEeCBKaYD0k mBImIA4xQHTyRTVqMKLfHy XZwqMtWfIww6SeQIhnA1uz W6LtRKHclKKydFfecDotzR IoTGNnbX2axUOdS6UflZRj WATaIDAmHQ3uXZOiOIWsYY Lta8UuLRyoaLBgE1brzvhm ALrydR0nXSWvmv8= CPT Code(s) (test code u4gptUAkFKZnaGL6TlDsLR = 3357) Ehm0cmx0RzyEXqrABsYLhf wXOynbRpvf63gXC6tE00CS 4vYAGyOlG1THUmpmL6Lrw3 NIQwRJZrlKDzC166c3xxt4 uumkHbhBY8nQmhHCZoblmk OjA9DXftZOSqrwauKRf2YR qyPTYmgON7SGCuxINdE8Hp EJDyNF1zicm9OCR4OIpcFZ YsObH4UTAvbVPfGQVbuVdu VQwpy181WGH6IdSqLYAqkv XkrAfqbJ4hFgNeIPL9GJKn OFxwYXJ9 CLINICAL DATA (test q3faoNQzJORcsVR8RnJqIB code = 3355) Woi8ptf2XfpHDwgPTfNAqz tOKadaYqtk45sFL3aB49YZ 7yXIMoSeM7UBCuppN3Abt9 OAYfJIGqoCTtX358k0rpe2 pozvUhjEC5qNtmCHHyjcwq QeH4KVsbTFThazlaYSh6PK isFAUhoES0OCNwbQEpC1Oy MLPlDV0trvm6IJD5USdaIJ PmVfK0NTCzeNNeQPHmyWuk SGbub033MIV7AaLnOHWdgr YknIjjtZ0kEhVdGZLDmxGr d2FyyjNzFHWltg9zBR4BUV Zgo8AbxRIzHUozvRQpiJSn ZiBkZWNvbXBlbnNhdGVkIG McG09im4xjEsVcaWUleZ2m aLSaMFXymCEjJVVuS44cq6 avDaOhZXPhbHj4dHAmOAlw oN8xhJOfDFODR8hqNG8qYD TWICBfS1RlZCUKNZWLMxPq g52vuId0YYHbBy6iJD7zoc xdZjKuti4aACKQAvYapLJy AQvmyPViXJ5kRPfRD9CnJS uoTULeQSesCVKjhOwlU3Gq rWI6ILDyK3EwXWhjfYulgt 2mQrfhBPNqxcbcdi5cl8Rn G38qwMRqn6ZuteRpKL27CY BnSIIfhX0pJAOkQZCwlcOm hT7lgRSsCYs5mJFzoBKcv3 m7EQXsFRB5ef8qLUSlrEqm IV2bRNEywuzdNDZnqg25QL JulN6lv1Zjc32tQKWenlBb q93ld3FlQOEwNRKxeH9jb8 j4hUNqsqPpnOSvNJygTiUc vPkcwZI0TKknMEhzxRG2yN SfOTXjq0QgZILxYXBarO2b tqfxMrrrXWHjuwRet4e6vQ 5iAHOpOAXpa07sNZW5iTXb wA0wFMRcGlHueYAjVllfVP J9 SPECIMEN SOURCE (test v8cfrLLqELEkeMA2DkVyEH code = 3377) Zjw0snh1VstPHpbFRlZNiu jKMatfWecl52gLF0aC36HZ 0sHMRqNxX9POHivdB1Xyh1 FHTxLQCqlCAhD465w8saf1 nruaSwzTB8pOetXBLrdlkw QrV6RSmwFRIwoeynLQr4TG woXNZsjQL3LDByrSCpX9Mt HXRfRL8zxnx8TYB3ERgtDL PjRhU1OCTjxLIiSXYioOyb OMrey837IAF9YfSxXKUzkh UkxCkltR5bJwLtXCKBFguW RSwgQkxBRERFUiBXQVNISU 6GFGCwtf8= GROSS DESCRIPTION (test h5tmuDHnUAIscNZ2LpPpWA code = [id number]) Dxi4ccg5XnyYCfqEDbOOeo kELfqpRmfv20bUA6tG71IQ 8vHRSwVsZ0NMWehjB7Ydp7 VCWlQGYkjRPoE728h1iin2 onlgYohNR4xKpvRRSdqxmj NmH9WYuvRXNtvcenVWq3XG pdKCOhkGQ8TNVzaUBeL4Ul OVRxMM6lbrb7LYM5EIunWE MqVeU6FVYykBFhXUXadGps AZyek103LWH2ZyRbVBOjxr F6QVhqMVYfI2VaT0ZoVQki PXL2KFOjIOEfNAUoQGVtUC WnUMmeheD8u1yrBBBygSDg DSK8ESdpaHQlDGZpHMWyAN xkYiBPVlIgIiAyODQyOTMw YzK3AHo0GPEBHiSrVbZqOd c4Vae3YbYmWYn4YSk8NStL JbP0PYS3UQT5SRvtEOMnDV CrGKk5ABKlZJyrwQKkEVTw KPGoIXxhQSvnD73xwFhuzA 5cZnMyMCBBLiBVcmluZSwg QmxhZGRlciBXYXNoLlxwYX JcZnMyMCBSZWNlaXZlZCAy WIJqnUUyuCUxuB81COBvgP kxVrEintYyKIKzPOC3CAK8 rO7kuTqgng35MFKafVPtHZ X2UF0mhSatJXZmX8UrB4Gl gxZ2XAAnrn5= MICROSCOPIC DESCRIPTION w4sflMJfGBGrdYY7UnRpKQ (test code = 3371) Mbh0olc7ZupVMqnUNwUCju oAFkaiKris71rBU7gC45KL 1bJHWkRjY1MWWmsbM5Wdt8 MQLxFKMpmQSoY637h5ddd1 vqmfHxsYD1bWqzAEGsxifk AqA5AJntROPbnctoRQk9MJ qvBZBxpGL9UDQkaXJxY8Ec PGYcDD7qcgl9WOJ3GZrzBO VdIpW2NCIvbUPdWRWabYwb GVzcp554SDL1JmMlRZTlaq GydErejD0iCxMjLNXEERQb m8IoHMNxOAujOER3 STATEMENT OF ADEQUACY Satisfactory (test code = 2757) Gross assessment was [facility] performed at ([facility], = 2777) Department of Pathology, [address] [place] [address], Technical component was [facility] performed at ([facility], = 2778) Department of Pathology, [address] [place], [place] [id number], Professional component [facility] was performed at ([facility], code = 2779) Department of Pathology, [address] [place], [place] [id number], [facility] 15:12:19Medical Cytology Report Case: [id number] Authorizing Provider: Stephanie Howard MD Collected: 05:09 PM Ordering Location: [address] Received: 05/07/2022 05:09 PM Service Pathologist: Geovany Stubbs MD Specimen: Urine, Bladder Wash URINE, BLADDER WASHING (CYTOSPINS): - RARE ATYPICAL CELLS PRESENT See comment Signing Pathologist Direct Phone Line: [phone] signed by Geovany Stubbs MD on 05/08/2022 at 3:12 PMCytology shows few clusters of benign urothelial cells and some degenerated cells. Rare cells with mildly increased nuclear to cytoplasmic ratio and irregular nuclear membrane are seen. No obvious high grade urothelial carcinoma cells are seen. Please correlate clinically. [id number] from OSH for management of decompensated alcoholic cirrhosis, acute alcoholic hepatitis, jaundice, DOMINIQUE (on [employer] s/p TDC, IR consulted for oozing from TDC site), melena (EGD- grade I esophageal varices with no bleeding/no stigmata of recent bleeding, severe portal hypertensive gastropathy, and varices noted in second portion of duodenum with no bleeding stigmata), He maturia (sub-cm urinary bladder polyloid lesion), uterine fibroids.URINE, BLADDER WASHINGA. Urine, Bladder Wash.Received 20 mls yellow fluid; prepared 4 cytospins.Performed. [facility], Department of Pathology, [address] [place] [id number], [facility], [facility], [address] [place] [address], [id number], [facility], [address] [place] [id number], [id number] 09:19:39 Test Item Value Reference Range Interpretation Comments FIBRINOGEN LEVEL (BEAKER) (test 154 mg/dl 225-434 L code = 658) COMPREHENSIVE METABOLIC [id number] 08:44:10 Test Item Value Reference Range Interpretation Comments TOTAL PROTEIN 6.4 gm/dL 6.0-8.3 (BEAKER) (test code = 770) ALBUMIN (BEAKER) 2.8 g/dL 3.5-5.0 L (test code = 1145) ALKALINE PHOSPHATASE 104 U/L 40-150 (BEAKER) (test code = 346) BILIRUBIN TOTAL 30.1 mg/dL 0.2-1.2 H (BEAKER) (test code = 377) SODIUM (BEAKER) (test 141 meq/L 136-145 code = 381) POTASSIUM (BEAKER) 3.6 meq/L 3.5-5.1 (test code = 379) CHLORIDE (BEAKER) 105 meq/L 98-107 (test code = 382) CO2 (BEAKER) (test 23 meq/L 22-29 code = 355) BLOOD UREA NITROGEN 17 mg/dL 7-21 (BEAKER) (test code = 354) CREATININE (BEAKER) 3.38 mg/dL 0.57-1.25 H (test code = 358) GLUCOSE RANDOM 109 mg/dL 70-105 H (BEAKER) (test code = 652) CALCIUM (BEAKER) 9.2 mg/dL 8.4-10.2 (test code = 697) AST (SGOT) (BEAKER) 144 U/L 5-34 H (test code = 353) ALT (SGPT) (BEAKER) 70 U/L 6-55 H (test code = 347) EGFR (BEAKER) (test 17 mL/min/1.73 ESTIMA KEVIN GFR IS code = 1092) sq m NOT ACCURATE CREATININE CLEARANCE IN PREDICTING GLOMERULAR FILTRATION RATE . ESTIMATED GFR I S NOT APPLICABLE FOR DIALYSIS PATIEN TS. Strawhat Sizer ID - DBOperator ID - DBSpecimen markedly [id number] 08:07:57 Test Item Value Reference Range Interpretation Comments MAGNESIUM (BEAKER) (test code = 1.8 mg/dL 1.6-2.6 627) Strawhat Sizer ID - DBPT/[id number] 06:42:28 Test Item Value Reference Range Interpretation Comments PROTIME (BEAKER) (test 24.8 seconds 11.9-14.2 H code = 759) INR (BEAKER) (test 2.27 See_Comment [Automat ed code = 370) message] The sy stem which generated this result transmitted reference range : <=5.90. The reference range was not used to interpret this result as normal/abnormal . PARTIAL THROMBOPLASTIN 52.5 seconds 22.5-36.0 H TIME (BEAKER) (test code = 760) RECOMMENDED COUMADIN/WARFARIN INR THERAPY RANGESSTANDARD DOSE: 2.0 - 3.0 Includes: PROPHYLAXIS for venous thrombosis, systemic embolization; TREATMENT for venous thrombosis and/or pulmonary embolus.HIGH RISK: Target INR is 2.5-3.5 for patients with mechanical heart valves.CBC W/PLT COUNT & AUTO [id number] 06:33:18 Test Item Value Reference Range Interpretation Comments WHITE BLOOD CELL COUNT (BEAKER) 7.2 K/ L 3.5-10.5 (test code = 775) RED BLOOD CELL COUNT (BEAKER) 2.58 M/ L 3.93-5.22 L (test code = 761) HEMOGLOBIN (BEAKER) (test code = 8.1 GM/DL 11.2-15.7 L 410) HEMATOCRIT (BEAKER) (test code = 23.3 % 34.1-44.9 L 411) MEAN CORPUSCULAR VOLUME (BEAKER) 90.3 fL 79.4-94.8 (test code = 753) MEAN CORPUSCULAR HEMOGLOBIN 31.4 pg 25.6-32.2 (BEAKER) (test code = 751) MEAN CORPUSCULAR HEMOGLOBIN CONC 34.8 GM/DL 32.2-35.5 (BEAKER) (test code = 752) RED CELL DISTRIBUTION WIDTH 17.5 % 11.7-14.4 H (BEAKER) (test code = 412) PLATELET COUNT (BEAKER) (test code 48 K/CU MM 150-450 L = 756) MEAN PLATELET VOLUME (BEAKER) 12.8 fL 9.4-12.3 H (test code = 754) NUCLEATED RED BLOOD CELLS (BEAKER) 0 /100 WBC 0-0 (test code = 413) NEUTROPHILS RELATIVE PERCENT 80 % (BEAKER) (test code = 429) LYMPHOCYTES RELATIVE PERCENT 7 % (BEAKER) (test code = 430) MONOCYTES RELATIVE PERCENT 12 % (BEAKER) (test code = 431) EOSINOPHILS RELATIVE PERCENT 0 % (BEAKER) (test code = 432) BASOPHILS RELATIVE PERCENT 0 % (BEAKER) (test code = 437) NEUTROPHILS ABSOLUTE COUNT 5.71 K/ L 1.56-6.13 (BEAKER) (test code = 670) LYMPHOCYTES ABSOLUTE COUNT 0.52 K/ L 1.18-3.74 L (BEAKER) (test code = 414) MONOCYTES ABSOLUTE COUNT (BEAKER) 0.84 K/ L 0.24-0.36 H (test code = 415) EOSINOPHILS ABSOLUTE COUNT 0.01 K/ L 0.04-0.36 L (BEAKER) (test code = 416) BASOPHILS ABSOLUTE COUNT (BEAKER) 0.01 K/ L 0.01-0.08 (test code = 417) IMMATURE GRANULOCYTES-RELATIVE 1 % 0-1 PERCENT (BEAKER) (test code = 2801) VITAMIN [id number] 08:25:36 Test Item Value Reference Range Interpretation Comments VITAMIN B12 (BEAKER) (test code = 1845 pg/mL 213-816 H 774) Strawhat Sizer ID - PIAYA LCOMPREHENSIVE METABOLIC [id number] 06:43:07 Test Item Value Reference Range Interpretation Comments TOTAL PROTEIN 5.8 gm/dL 6.0-8.3 L (BEAKER) (test code = 770) ALBUMIN (BEAKER) 2.7 g/dL 3.5-5.0 L (test code = 1145) ALKALINE PHOSPHATASE 93 U/L 40-150 (BEAKER) (test code = 346) BILIRUBIN TOTAL 25.9 mg/dL 0.2-1.2 H (BEAKER) (test code = 377) SODIUM (BEAKER) (test 138 meq/L 136-145 code = 381) POTASSIUM (BEAKER) 3.5 meq/L 3.5-5.1 (test code = 379) CHLORIDE (BEAKER) 105 meq/L 98-107 (test code = 382) CO2 (BEAKER) (test 25 meq/L 22-29 code = 355) BLOOD UREA NITROGEN 28 mg/dL 7-21 H (BEAKER) (test code = 354) CREATININE (BEAKER) 4.80 mg/dL 0.57-1.25 H (test code = 358) GLUCOSE RANDOM 110 mg/dL 70-105 H (BEAKER) (test code = 652) CALCIUM (BEAKER) 9.2 mg/dL 8.4-10.2 (test code = 697) AST (SGOT) (BEAKER) 134 U/L 5-34 H (test code = 353) ALT (SGPT) (BEAKER) 63 U/L 6-55 H (test code = 347) EGFR (BEAKER) (test 11 mL/min/1.73 ESTIMA KEVIN GFR IS code = 1092) sq m NOT ACCURATE CREATININE CLEARANCE IN PREDICTING GLOMERULAR FILTRATION RATE . ESTIMATED GFR I S NOT APPLICABLE FOR DIALYSIS PATIEN TS. Strawhat Sizer ID - PISANDI LOperator ID - MARCY LSpecimen markedly ictericMAGNESIUM 2022-05-07 06:21:15 Test Item Value Reference Range Interpretation Comments MAGNESIUM (BEAKER) (test code = 1.8 mg/dL 1.6-2.6 627) Strawhat Sizer ID - MARCY LCBC W/PLT COUNT & AUTO [id number] 05:34:50 Test Item Value Reference Range Interpretation Comments WHITE BLOOD CELL COUNT (BEAKER) 8.4 K/ L 3.5-10.5 (test code = 775) RED BLOOD CELL COUNT (BEAKER) 2.48 M/ L 3.93-5.22 L (test code = 761) HEMOGLOBIN (BEAKER) (test code = 7.7 GM/DL 11.2-15.7 L 410) HEMATOCRIT (BEAKER) (test code = 22.3 % 34.1-44.9 L 411) MEAN CORPUSCULAR VOLUME (BEAKER) 89.9 fL 79.4-94.8 (test code = 753) MEAN CORPUSCULAR HEMOGLOBIN 31.0 pg 25.6-32.2 (BEAKER) (test code = 751) MEAN CORPUSCULAR HEMOGLOBIN CONC 34.5 GM/DL 32.2-35.5 (BEAKER) (test code = 752) RED CELL DISTRIBUTION WIDTH 17.9 % 11.7-14.4 H (BEAKER) (test code = 412) PLATELET COUNT (BEAKER) (test code 85 K/CU MM 150-450 L = 756) MEAN PLATELET VOLUME (BEAKER) 11.9 fL 9.4-12.3 (test code = 754) NUCLEATED RED BLOOD CELLS (BEAKER) 0 /100 WBC 0-0 (test code = 413) NEUTROPHILS RELATIVE PERCENT 75 % (BEAKER) (test code = 429) LYMPHOCYTES RELATIVE PERCENT 11 % (BEAKER) (test code = 430) MONOCYTES RELATIVE PERCENT 12 % (BEAKER) (test code = 431) EOSINOPHILS RELATIVE PERCENT 0 % (BEAKER) (test code = 432) BASOPHILS RELATIVE PERCENT 0 % (BEAKER) (test code = 437) NEUTROPHILS ABSOLUTE COUNT 6.31 K/ L 1.56-6.13 H (BEAKER) (test code = 670) LYMPHOCYTES ABSOLUTE COUNT 0.96 K/ L 1.18-3.74 L (BEAKER) (test code = 414) MONOCYTES ABSOLUTE COUNT (BEAKER) 1.03 K/ L 0.24-0.36 H (test code = 415) EOSINOPHILS ABSOLUTE COUNT 0.03 K/ L 0.04-0.36 L (BEAKER) (test code = 416) BASOPHILS ABSOLUTE COUNT (BEAKER) 0.02 K/ L 0.01-0.08 (test code = 417) IMMATURE GRANULOCYTES-RELATIVE 1 % 0-1 PERCENT (BEAKER) (test code = 2801) [id number] 04:54:58 Test Item Value Reference Range Interpretation Comments PROTIME (BEAKER) (test 24.0 seconds 11.9-14.2 H code = 759) INR (BEAKER) (test 2.17 See_Comment [Automat ed code = 370) message] The sy stem which generated this result transmitted reference range : <=5.90. The reference range was not used to interpret this result as normal/abnormal . PARTIAL THROMBOPLASTIN 49.6 seconds 22.5-36.0 H TIME (BEAKER) (test code = 760) RECOMMENDED COUMADIN/WARFARIN INR THERAPY RANGESSTANDARD DOSE: 2.0 - 3.0 Includes: PROPHYLAXIS for venous thrombosis, systemic embolization; TREATMENT for venous thrombosis and/or pulmonary embolus.HIGH RISK: Target INR is 2.5-3.5 for patients with mechanical heart valves.[id number] 16:04:52 Test Item Value Reference Range Interpretation Comments FIBRINOGEN LEVEL (BEAKER) (test 145 mg/dl 225-434 L code = 658) [id number] 15:55:50 Test Item Value Reference Range Interpretation Comments PROTIME (BEAKER) (test 22.4 seconds 11.9-14.2 H code = 759) INR (BEAKER) (test 1.99 See_Comment [Automat ed code = 370) message] The sy stem which generated this result transmitted reference range : <=5.90. The reference range was not used to interpret this result as normal/abnormal . PARTIAL THROMBOPLASTIN 45.9 seconds 22.5-36.0 H TIME (BEAKER) (test code = 760) RECOMMENDED COUMADIN/WARFARIN INR THERAPY RANGESSTANDARD DOSE: 2.0 - 3.0 Includes: PROPHYLAXIS for venous thrombosis, systemic embolization; TREATMENT for venous thrombosis and/or pulmonary embolus.HIGH RISK: Target INR is 2.5-3.5 for patients with mechanical heart valves.COMPREHENSIVE METABOLIC PANEL 2022-05-06 08:33:05 Test Item Value Reference Range Interpretation Comments TOTAL PROTEIN 5.4 gm/dL 6.0-8.3 L (BEAKER) (test code = 770) ALBUMIN (BEAKER) 2.6 g/dL 3.5-5.0 L (test code = 1145) ALKALINE PHOSPHATASE 79 U/L 40-150 (BEAKER) (test code = 346) BILIRUBIN TOTAL 25.0 mg/dL 0.2-1.2 H (BEAKER) (test code = 377) SODIUM (BEAKER) (test 140 meq/L 136-145 code = 381) POTASSIUM (BEAKER) 3.5 meq/L 3.5-5.1 (test code = 379) CHLORIDE (BEAKER) 106 meq/L 98-107 (test code = 382) CO2 (BEAKER) (test 25 meq/L 22-29 code = 355) BLOOD UREA NITROGEN 22 mg/dL 7-21 H (BEAKER) (test code = 354) CREATININE (BEAKER) 3.84 mg/dL 0.57-1.25 H (test code = 358) GLUCOSE RANDOM 121 mg/dL 70-105 H (BEAKER) (test code = 652) CALCIUM (BEAKER) 9.1 mg/dL 8.4-10.2 (test code = 697) AST (SGOT) (BEAKER) 103 U/L 5-34 H (test code = 353) ALT (SGPT) (BEAKER) 53 U/L 6-55 (test code = 347) EGFR (BEAKER) (test 15 mL/min/1.73 ESTIMA KEVIN GFR IS code = 1092) sq m NOT ACCURATE CREATININE CLEARANCE IN PREDICTING GLOMERULAR FILTRATION RATE . ESTIMATED GFR I S NOT APPLICABLE FOR DIALYSIS PATIEN TS. Strawhat Sizer ID - MICHELLE WOperator ID - MICHELLE WSpecimen markedly ictericMAGNESIUM 2022-05-06 08:31:36 Test Item Value Reference Range Interpretation Comments MAGNESIUM (BEAKER) (test code = 1.8 mg/dL 1.6-2.6 627) Strawhat Sizer ID Rosina MARTINEZ WCBC W/PLT COUNT & AUTO [id number] 06:12:48 Test Item Value Reference Range Interpretation Comments WHITE BLOOD CELL COUNT (BEAKER) 8.2 K/ L 3.5-10.5 (test code = 775) RED BLOOD CELL COUNT (BEAKER) 2.43 M/ L 3.93-5.22 L (test code = 761) HEMOGLOBIN (BEAKER) (test code = 7.4 GM/DL 11.2-15.7 L 410) HEMATOCRIT (BEAKER) (test code = 21.9 % 34.1-44.9 L 411) MEAN CORPUSCULAR VOLUME (BEAKER) 90.1 fL 79.4-94.8 (test code = 753) MEAN CORPUSCULAR HEMOGLOBIN 30.5 pg 25.6-32.2 (BEAKER) (test code = 751) MEAN CORPUSCULAR HEMOGLOBIN CONC 33.8 GM/DL 32.2-35.5 (BEAKER) (test code = 752) RED CELL DISTRIBUTION WIDTH 17.8 % 11.7-14.4 H (BEAKER) (test code = 412) PLATELET COUNT (BEAKER) (test code 94 K/CU MM 150-450 L = 756) MEAN PLATELET VOLUME (BEAKER) 11.1 fL 9.4-12.3 (test code = 754) NUCLEATED RED BLOOD CELLS (BEAKER) 0 /100 WBC 0-0 (test code = 413) NEUTROPHILS RELATIVE PERCENT 78 % (BEAKER) (test code = 429) LYMPHOCYTES RELATIVE PERCENT 9 % (BEAKER) (test code = 430) MONOCYTES RELATIVE PERCENT 11 % (BEAKER) (test code = 431) EOSINOPHILS RELATIVE PERCENT 1 % (BEAKER) (test code = 432) BASOPHILS RELATIVE PERCENT 0 % (BEAKER) (test code = 437) NEUTROPHILS ABSOLUTE COUNT 6.40 K/ L 1.56-6.13 H (BEAKER) (test code = 670) LYMPHOCYTES ABSOLUTE COUNT 0.76 K/ L 1.18-3.74 L (BEAKER) (test code = 414) MONOCYTES ABSOLUTE COUNT (BEAKER) 0.86 K/ L 0.24-0.36 H (test code = 415) EOSINOPHILS ABSOLUTE COUNT 0.06 K/ L 0.04-0.36 (BEAKER) (test code = 416) BASOPHILS ABSOLUTE COUNT (BEAKER) 0.01 K/ L 0.01-0.08 (test code = 417) IMMATURE GRANULOCYTES-RELATIVE 1 % 0-1 PERCENT (BEAKER) (test code = 2801) COMPREHENSIVE METABOLIC [id number] 10:35:04 Test Item Value Reference Range Interpretation Comments TOTAL PROTEIN 4.8 gm/dL 6.0-8.3 L (BEAKER) (test code = 770) ALBUMIN (BEAKER) 2.3 g/dL 3.5-5.0 L (test code = 1145) ALKALINE PHOSPHATASE 66 U/L 40-150 (BEAKER) (test code = 346) BILIRUBIN TOTAL 24.7 mg/dL 0.2-1.2 H (BEAKER) (test code = 377) SODIUM (BEAKER) (test 140 meq/L 136-145 code = 381) POTASSIUM (BEAKER) 3.9 meq/L 3.5-5.1 (test code = 379) CHLORIDE (BEAKER) 108 meq/L 98-107 H (test code = 382) CO2 (BEAKER) (test 26 meq/L 22-29 code = 355) BLOOD UREA NITROGEN 15 mg/dL 7-21 (BEAKER) (test code = 354) CREATININE (BEAKER) 2.77 mg/dL 0.57-1.25 H (test code = 358) GLUCOSE RANDOM 93 mg/dL 70-105 (BEAKER) (test code = 652) CALCIUM (BEAKER) 8.3 mg/dL 8.4-10.2 L (test code = 697) AST (SGOT) (BEAKER) 116 U/L 5-34 H (test code = 353) ALT (SGPT) (BEAKER) 56 U/L 6-55 H (test code = 347) EGFR (BEAKER) (test 21 mL/min/1.73 ESTIMA KEVIN GFR IS code = 1092) sq m NOT ACCURATE CREATININE CLEARANCE IN PREDICTING GLOMERULAR FILTRATION RATE . ESTIMATED GFR I S NOT APPLICABLE FOR DIALYSIS PATIEN TS. Strawhat Sizer ID - KWAKU GSpecimen markedly [id number] 10:07:48 Test Item Value Reference Range Interpretation Comments MAGNESIUM (BEAKER) (test code = 1.7 mg/dL 1.6-2.6 627) Strawhat Sizer ID - KAWKU GCBC W/PLT COUNT & AUTO [id number] 10:00:59 Test Item Value Reference Range Interpretation Comments WHITE BLOOD CELL COUNT 7.8 K/ L 3.5-10.5 (BEAKER) (test code = 775) RED BLOOD CELL COUNT 2.09 M/ L 3.93-5.22 L (BEAKER) (test code = 761) HEMOGLOBIN (BEAKER) 6.7 GM/DL 11.2-15.7 L (test code = 410) HEMATOCRIT (BEAKER) 19.0 % 34.1-44.9 L (test code = 411) MEAN CORPUSCULAR VOLUME 90.9 fL 79.4-94.8 (BEAKER) (test code = 753) MEAN CORPUSCULAR 32.1 pg 25.6-32.2 HEMOGLOBIN (BEAKER) (test code = 751) MEAN CORPUSCULAR 35.3 GM/DL 32.2-35.5 HEMOGLOBIN CONC (BEAKER) (test code = 752) RED CELL DISTRIBUTION 16.9 % 11.7-14.4 H WIDTH (BEAKER) (test code = 412) PLATELET COUNT (BEAKER) 25 K/CU MM 150-450 L (test code = 756) MEAN PLATELET VOLUME Unable to report due (BEAKER) (test code = to abn ormal Platelet 754) population distribution. NUCLEATED RED BLOOD 0 /100 WBC 0-0 CELLS (BEAKER) (test code = 413) NEUTROPHILS RELATIVE 80 % PERCENT (BEAKER) (test code = 429) LYMPHOCYTES RELATIVE 10 % PERCENT (BEAKER) (test code = 430) MONOCYTES RELATIVE 9 % PERCENT (BEAKER) (test code = 431) EOSINOPHILS RELATIVE 0 % PERCENT (BEAKER) (test code = 432) BASOPHILS RELATIVE 0 % PERCENT (BEAKER) (test code = 437) NEUTROPHILS ABSOLUTE 6.30 K/ L 1.56-6.13 H COUNT (BEAKER) (test code = 670) LYMPHOCYTES ABSOLUTE 0.74 K/ L 1.18-3.74 L COUNT (BEAKER) (test code = 414) MONOCYTES ABSOLUTE 0.69 K/ L 0.24-0.36 H COUNT (BEAKER) (test code = 415) EOSINOPHILS ABSOLUTE 0.03 K/ L 0.04-0.36 L COUNT (BEAKER) (test code = 416) BASOPHILS ABSOLUTE 0.01 K/ L 0.01-0.08 COUNT (BEAKER) (test code = 417) IMMATURE 1 % 0-1 GRANULOCYTES-RELATIVE PERCENT (BEAKER) (test code = 2801) PERIPHERAL BLOOD SMEAR - HOLD [id number] 10:00:58 Test Item Value Reference Range Interpretation Comments PERIPHERAL SMEAR SAVE (BEAKER) (test saved code = 1815) PROTHROMBIN TIME/[id number] 09:55:08 Test Item Value Reference Range Interpretation Comments PROTIME (BEAKER) 26.8 seconds 11.9-14.2 H (test code = 759) INR (BEAKER) (test 2.51 See_Comment [Automat ed message] code = 370) The system V[employer] generated this result transmitted ref erence range: <=5.90. The reference range was not used to int erpret this result as normal/abnormal . RECOMMENDED COUMADIN/WARFARIN INR THERAPY RANGESSTANDARD DOSE: 2.0 - 3.0 Includes: PROPHYLAXIS for venous thrombosis, systemic embolization; TREATMENT for venous thrombosis and/or pulmonary embolus.HIGH RISK: Target INR is 2.5-3.5 for patients with mechanical heart valves.CT, EXTREMITY, UPPER, WITHOUT CONTRAST, [id number] 03:03:00Unlisted Reason for Exam - Click Yes and Enter Reason Below->YesUnlisted Reason for Exam->swelling and ecchymoses, anemia, evaluate extent of hematoma [facility] : 1965 Sex: FFINAL REPORT EXAMINATION: CT, CT, extremity, upper, without contrast, right CLINICAL DATA: Swelling and ecchymosis diffusely over the right arm in a 56-year-old female. Evaluate the full severity and extent of the hematoma. PROCEDURE NOTE: Spiral images were done through the right upper extremity without injecting intravenous contrast. Axial and sagittal and coronal images were reviewedon soft tissue and bone window settings. The estimated radiation dose was equal to a total DLP of 243 mGy*cm. Individualized radiation dose reduction techniques were employed. COMPARISON: None. FINDINGS: The patient was scanned with the right hand and wrist above the head. Coronal image #45 is a good underwriting account representative image to show the full extent of hematoma in the right upper extremity. They are normally is fat without any high attenuation along the dorsal aspect of the right ulna in the forearm. This is not the case in this patient. There is soft tissue swelling at the mid forearm level that is up to 18 mm on image 46. The material that is present in the subcutaneous fascia is all moderately high attenuation which would correlate well with hematoma and blood products. The swelling starts at the distal right ulna level and then continues all the way down to the elbow although it narrows at the level of the olecranon process. Then, there is subcutaneous edema and hematoma present in the antecubital fossa and extending into the upper arm as seen on image #49 with a possible hematoma with higher attenuation than muscle seen there measuring at least 12 to 13 cm long and 3 cm in AP dimension. Therealso is edema diffusely in the subcutaneous fascia along the lateral aspect of the right humerus anddorsal aspect extending up from the elbow along the distance of 17 cm long or more on image 54. The edema begins to thin out and and bowel 9 cm below the top of the right humerus sparing the deltoid muscle and the right axillary region in the right shoulder proper. No air is seen within the collectionto suggest necrotizing fasciitis or abscess or penetrating trauma. No foreign body is seen. Cause for the hematoma is uncertain. It all appears to be superficial to the musculature with no hematoma seen in the substance of the biceps muscle or other muscles of the right upper arm or shoulder girdle. At the level the distal right humerus, the findings are circumferential on axial image #133. In the right forearm, most of the hematoma and fluid is located posteriorly and towards the ulna with relativesparing along the lateral edge of the radius seen. IMPRESSION: Large right arm hematoma as discussed. Signed: Josue Melchor [facility] HE[facility] SYSTEMSeport Verified Date/Time: 05/05/2022 03:03:54 Venous doppler arm, [id number] 21:12:46Ejection FractionSLEH ECHO HEARTLAB MKCKESSON [facility], [id number] 21:12:46Ejection FractionSLEH ECHO HEARTLAB [facility] - PATHOLOGIST [id number] 16:26:11 Test Item Value Reference Range Interpretation Comments PERIPHERAL SMR REVIEW Cell counts confirmed. (BEAKER) (test code = There is normocytic 2640) normochromic anemia with mild anisopoikilocytosis. No significant increase in schistocytes. Platelets are decreased with no significant platelet clumps or satellitism identified. [id number] José Barboza, (JOSEBANNER) (test code = M.D. 2849) [id number] 16:16:15 Test Item Value Reference Range Interpretation Comments T3 TOTAL (BEAKER) (test code = 0.27 ng/mL 0.60-1.81 L 656) Strawhat Sizer ID - [id number] ACTIVATED CLOTTING [id number] 12:56:30 Test Item Value Reference Range Interpretation Comments Activated Clotting Time 208 sec : 74 -137 seconds, (test code = 3184-9) Baselin e: TESTED AT [address], [address]: Strawhat Sizer/Techni daren ID = [id number] for Lo pez, [facility] ACTIVATED CLOTTING [id number] 12:56:30 Test Item Value Reference Range Interpretation Comments Activated Clotting Time 208 sec : 74 -137 seconds, (test code = 3184-9) Baselin e: TESTED AT [address], [address]: Strawhat Sizer/Techni daren ID = [id number] for Lo pez, [facility]POCT-[id number] 12:56:30 Test Item Value Reference Range Interpretation Comments ACTIVATED CLOTTING TIME 208 sec : 74 -137 seconds, (BEAKER) (test code = Baseli ne: TESTED AT 441) [address] [place], [address]: Strawhat Sizer/Techni daren ID = [id number] for Angela Razo COMPREHENSIVE METABOLIC [id number] 11:30:22 Test Item Value Reference Range Interpretation Comments TOTAL PROTEIN 5.1 gm/dL 6.0-8.3 L (BEAKER) (test code = 770) ALBUMIN (BEAKER) 2.4 g/dL 3.5-5.0 L (test code = 1145) ALKALINE PHOSPHATASE 74 U/L 40-150 (BEAKER) (test code = 346) BILIRUBIN TOTAL 28.4 mg/dL 0.2-1.2 H (BEAKER) (test code = 377) SODIUM (BEAKER) (test 138 meq/L 136-145 code = 381) POTASSIUM (BEAKER) 3.3 meq/L 3.5-5.1 L (test code = 379) CHLORIDE (BEAKER) 102 meq/L 98-107 (test code = 382) CO2 (BEAKER) (test 25 meq/L 22-29 code = 355) BLOOD UREA NITROGEN 29 mg/dL 7-21 H (BEAKER) (test code = 354) CREATININE (BEAKER) 4.82 mg/dL 0.57-1.25 H (test code = 358) GLUCOSE RANDOM 98 mg/dL 70-105 (BEAKER) (test code = 652) CALCIUM (BEAKER) 8.7 mg/dL 8.4-10.2 (test code = 697) AST (SGOT) (BEAKER) 99 U/L 5-34 H (test code = 353) ALT (SGPT) (BEAKER) 49 U/L 6-55 (test code = 347) EGFR (BEAKER) (test 11 mL/min/1.73 ESTIMA KEVIN GFR IS code = 1092) sq m NOT ACCURATE CREATININE CLEARANCE IN PREDICTING GLOMERULAR FILTRATION RATE . ESTIMATED GFR I S NOT APPLICABLE FOR DIALYSIS PATIEN TS. Strawhat Sizer ID - MARCY LOperator BRYAN - MARCY LSpecimen markedly ictericMAGNESIUM 2022-05-04 11:30:16 Test Item Value Reference Range Interpretation Comments MAGNESIUM (BEAKER) (test code = 1.7 mg/dL 1.6-2.6 627) Strawhat Sizer ID - MARCY [id number] 11:30:16 Test Item Value Reference Range Interpretation Comments PHOSPHORUS (BEAKER) (test code = 3.4 mg/dL 2.3-4.7 604) Strawhat Sizer ID Rosina VIDAL [id number] 11:03:29 Test Item Value Reference Range Interpretation Comments THYROID STIMULATING HORMONE 0.270 uIU/mL 0.350-4.940 L (BEAKER) (test code = 772) Strawhat Sizer ID - MARCY LT4, [id number] 10:42:14 Test Item Value Reference Range Interpretation Comments FREE T4 (BEAKER) (test code = 655) 0.51 ng/dL 0.70-1.48 L Strawhat Sizer ID - MARCY LMISCELLANEOUS LAB [id number] 10:01:40 Test Item Value Reference Range Interpretation Comments SCAN RESULT (test code = See scanned report [id number]) See scanned reportPROTHROMBIN TIME/[id number] 09:43:57 Test Item Value Reference Range Interpretation Comments PROTIME (BEAKER) 28.7 seconds 11.9-14.2 H (test code = 759) INR (BEAKER) (test 2.73 See_Comment [Automat ed message] code = 370) The system [employer] generated this result transmitted ref erence range: <=5.90. The reference range was not used to int erpret this result as normal/abnormal . RECOMMENDED COUMADIN/WARFARIN INR THERAPY RANGESSTANDARD DOSE: 2.0 - 3.0 Includes: PROPHYLAXIS for venous thrombosis, systemic embolization; TREATMENT for venous thrombosis and/or pulmonary embolus.HIGH RISK: Target INR is 2.5-3.5 for patients with mechanical heart valves.CBC W/PLT COUNT & AUTO [id number] 09:27:49 Test Item Value Reference Range Interpretation Comments WHITE BLOOD CELL COUNT 9.1 K/ L 3.5-10.5 (BEAKER) (test code = 775) RED BLOOD CELL COUNT 2.28 M/ L 3.93-5.22 L (BEAKER) (test code = 761) HEMOGLOBIN (BEAKER) 7.4 GM/DL 11.2-15.7 L (test code = 410) HEMATOCRIT (BEAKER) 20.5 % 34.1-44.9 L (test code = 411) MEAN CORPUSCULAR VOLUME 89.9 fL 79.4-94.8 (BEAKER) (test code = 753) MEAN CORPUSCULAR 32.5 pg 25.6-32.2 H HEMOGLOBIN (BEAKER) (test code = 751) MEAN CORPUSCULAR 36.1 GM/DL 32.2-35.5 H HEMOGLOBIN CONC (BEAKER) (test code = 752) RED CELL DISTRIBUTION 16.9 % 11.7-14.4 H WIDTH (BEAKER) (test code = 412) PLATELET COUNT (BEAKER) 29 K/CU MM 150-450 L (test code = 756) MEAN PLATELET VOLUME Unable to report due (BEAKER) (test code = to abn ormal Platelet 754) population distribution. NUCLEATED RED BLOOD 0 /100 WBC 0-0 CELLS (BEAKER) (test code = 413) NEUTROPHILS RELATIVE 81 % PERCENT (BEAKER) (test code = 429) LYMPHOCYTES RELATIVE 10 % PERCENT (BEAKER) (test code = 430) MONOCYTES RELATIVE 8 % PERCENT (BEAKER) (test code = 431) EOSINOPHILS RELATIVE 0 % PERCENT (BEAKER) (test code = 432) BASOPHILS RELATIVE 0 % PERCENT (BEAKER) (test code = 437) NEUTROPHILS ABSOLUTE 7.30 K/ L 1.56-6.13 H COUNT (BEAKER) (test code = 670) LYMPHOCYTES ABSOLUTE 0.91 K/ L 1.18-3.74 L COUNT (BEAKER) (test code = 414) MONOCYTES ABSOLUTE 0.74 K/ L 0.24-0.36 H COUNT (BEAKER) (test code = 415) EOSINOPHILS ABSOLUTE 0.03 K/ L 0.04-0.36 L COUNT (BEAKER) (test code = 416) BASOPHILS ABSOLUTE 0.02 K/ L 0.01-0.08 COUNT (BEAKER) (test code = 417) IMMATURE 1 % 0-1 GRANULOCYTES-RELATIVE PERCENT (BEAKER) (test code = 2801) CALCIUM, [id number] 09:22:04 Test Item Value Reference Range Interpretation Comments CALCIUM IONIZED (BEAKER) (test 1.07 mmol/L 1.12-1.27 L code = 698) PH, BLOOD (BEAKER) (test code = 7.43 1810) SARS-COV2/RT-PCR ([facility])2022-05-04 09:20:47 Test Item Value Reference Range Interpretation Comments SARS-COV2/RT-PCR Negative Negative The SARS-Co V-2 target (test code = nucleic acids a re not 4642461) detected in thi s specimen. Negative result s do not preclude SARS-C oV-2 infection and s hould not be used as the derick e basis for patient managem ent decisions. Nega tive results must be combine d with clinical observ ations, patient history , and epidemiological information. A false negativ e result may occur if a spec imen is improperly erika ected, transported or handled. This SARS CoV-2 test is a rapid, real-time RT-PC R test intended for th e qualitative detection of nu cleic acid from SARS-CoV-2 in a nasopharyngeal swab specimen collected from individuals suspected of CO VID-19 by their healthcar e provider. This test has been authorized by FDA under an EUA for use by authorized laboratories. This test is only authorized for the duration of the declaration that circumstances exist justifying the authorization of emergency use of in vitro diagnostic tests for detection and/or diagnosis of COVID-19 under Section 564(b)(1) of the Federal Food, Drug and Cosmetic Act, 21 U.S.C. 360bbb-3(b)(1), unless the authorization is terminated or revoked sooner. Fact Sheet for Healthcare Providers: https://www.[employer] m/Documents/Xpert%20Xpress%20SARS%20CoV-2/Fact%20Sheets/3023802%05ZSAW-UHQ-3%20 HEALTHCARE%20PROVIDERS%20FACT%20SHEET.pdf Fact Sheet for Healthcare Patients: https://www.[employer]/Documents/Xpert%20Xp ress%20SARS%20CoV-2/Fact%20Sheets/3023801%97YRFG-MVF-3%20PATIENT%20FACT%20SHEET .pdfUrinalysis w/[id number] 22:33:32 Test Item Value Reference Range Interpretation Comments Color, UA (test code Yellow = 5778-6) Clarity, UA (test Clear code = 5767-9) Specific [place], UA 1.006 1.001-1.035 (test code = 5811-5) pH, UA (test code = 7.5 5.0-8.0 5803-2) Protein, UA (test Negative Negative code = 52293-0) Glucose, UA (test Negative Negative code = 365) Ketones, UA (test Negative Negative code = 2514-8) Bilirubin, UA (test Negative Negative code = 26407-0) Blood, UA (test code Moderate Negative A = 93615-2) Nitrite, UA (test Negative Negative code = 5802-4) Leukocytes, UA (test Moderate Negative A code = 5799-2) Urobilinogen, UA 0.2 mg/dL 0.2-1.0 (test code = 79791-5) RBC, UA (test code = 0 See_Comment [Autom ated 37218-9) message] The system which generated this result transmit kevin reference range : /HPF. The reference range was not used to interpret this result as normal/abnormal . WBC, UA (test code = 0 See_Comment [Autom ated 5821-4) message] The system which generated this result transmit kevin reference range : /HPF. The reference range was not used to interpret this result as normal/abnormal . Bacteria, UA (test Rare code = 25347-4) Squam Epithel, UA 1 See_Comment [Automate d (test code = 53232-0) messag e] The system which generated this result transmit kevin reference range : /HPF. The reference range was not used to interpret this result as normal/abnormal . Crystals, Urine (test None Seen code = 15956-7) Specimen Source (test Urine, Voided code = 2795) ADRIA (test code = ADRIA) Strawhat Sizer ID - [auto]Strawhat Sizer ID - tech Lab Interpretation Abnormal (test code = 91978-7) [facility]/[id number] 22:33:32 Test Item Value Reference Range Interpretation Comments Color, UA (test code Yellow = 5778-6) Clarity, UA (test Clear code = 5767-9) Specific [place], UA 1.006 1.001-1.035 (test code = 5811-5) pH, UA (test code = 7.5 5.0-8.0 5803-2) Protein, UA (test Negative Negative code = 13341-2) Glucose, UA (test Negative Negative code = 365) Ketones, UA (test Negative Negative code = 2514-8) Bilirubin, UA (test Negative Negative code = 03553-9) Blood, UA (test code Moderate Negative A = 74865-3) Nitrite, UA (test Negative Negative code = 5802-4) Leukocytes, UA (test Moderate Negative A code = 5799-2) Urobilinogen, UA 0.2 mg/dL 0.2-1.0 (test code = 91963-6) RBC, UA (test code = 0 See_Comment [Autom ated 06288-3) message] The system which generated this result transmit kevin reference range : /HPF. The reference range was not used to interpret this result as normal/abnormal . WBC, UA (test code = 0 See_Comment [Autom ated 5821-4) message] The system which generated this result transmit kevin reference range : /HPF. The reference range was not used to interpret this result as normal/abnormal . Bacteria, UA (test Rare code = 73390-8) Squam Epithel, UA 1 See_Comment [Automate d (test code = 30299-9) messag e] The system which generated this result transmit kevin reference range : /HPF. The reference range was not used to interpret this result as normal/abnormal . Crystals, Urine (test None Seen code = 17198-8) Specimen Source (test Urine, Voided code = 2795) ADRIA (test code = ADRIA) Strawhat Sizer ID - [auto]Strawhat Sizer ID - tech Lab Interpretation Abnormal (test code = 50408-8) [facility]/ [id number] 22:33:32 Test Item Value Reference Range Interpretation Comments COLOR (BEAKER) (test code = Yellow 470) CLARITY (BEAKER) (test code = Clear 469) SPECIFIC GRAVITY UA (BEAKER) 1.006 1.001-1.035 (test code = 468) PH UA (BEAKER) (test code = 7.5 5.0-8.0 467) PROTEIN UA (BEAKER) (test code Negative Negative = 464) GLUCOSE UA (BEAKER) (test code Negative Negative = 365) KETONES UA (BEAKER) (test code Negative Negative = 371) BILIRUBIN UA (BEAKER) (test Negative Negative code = 462) BLOOD UA (BEAKER) (test code = Moderate Negative A 461) NITRITE UA (BEAKER) (test code Negative Negative = 465) LEUKOCYTE ESTERASE UA (BEAKER) Moderate Negative A (test code = 466) UROBILINOGEN UA (BEAKER) (test 0.2 mg/dL 0.2-1.0 code = 463) RBC UA (BEAKER) (test code = 0 /HPF 519) WBC UA (BEAKER) (test code = 0 /HPF 520) BACTERIA (BEAKER) (test code = Rare 517) SQUAMOUS EPITHELIAL (BEAKER) 1 /HPF (test code = 516) CRYSTALS, URINE (BEAKER) (test None Seen code = 1521) SOURCE(BEAKER) (test code = Urine, Voided 8094) Strawhat Sizer ID - [auto]Strawhat Sizer ID - techCBC W/PLT COUNT & AUTO DIFFERENTIAL 2022-05-03 16:22:41 Test Item Value Reference Range Interpretation Comments WHITE BLOOD CELL COUNT 9.5 K/ L 3.5-10.5 (BEAKER) (test code = 775) RED BLOOD CELL COUNT 2.29 M/ L 3.93-5.22 L (BEAKER) (test code = 761) HEMOGLOBIN (BEAKER) 7.4 GM/DL 11.2-15.7 L (test code = 410) HEMATOCRIT (BEAKER) 20.9 % 34.1-44.9 L (test code = 411) MEAN CORPUSCULAR VOLUME 91.3 fL 79.4-94.8 (BEAKER) (test code = 753) MEAN CORPUSCULAR 32.3 pg 25.6-32.2 H HEMOGLOBIN (BEAKER) (test code = 751) MEAN CORPUSCULAR 35.4 GM/DL 32.2-35.5 HEMOGLOBIN CONC (BEAKER) (test code = 752) RED CELL DISTRIBUTION 16.4 % 11.7-14.4 H WIDTH (BEAKER) (test code = 412) PLATELET COUNT (BEAKER) 23 K/CU MM 150-450 L (test code = 756) MEAN PLATELET VOLUME Unable to report due (BEAKER) (test code = to abn ormal Platelet 754) population distribution. NUCLEATED RED BLOOD 0 /100 WBC 0-0 CELLS (BEAKER) (test code = 413) NEUTROPHILS RELATIVE 81 % PERCENT (BEAKER) (test code = 429) LYMPHOCYTES RELATIVE 9 % PERCENT (BEAKER) (test code = 430) MONOCYTES RELATIVE 9 % PERCENT (BEAKER) (test code = 431) EOSINOPHILS RELATIVE 0 % PERCENT (BEAKER) (test code = 432) BASOPHILS RELATIVE 0 % PERCENT (BEAKER) (test code = 437) NEUTROPHILS ABSOLUTE 7.69 K/ L 1.56-6.13 H COUNT (BEAKER) (test code = 670) LYMPHOCYTES ABSOLUTE 0.87 K/ L 1.18-3.74 L COUNT (BEAKER) (test code = 414) MONOCYTES ABSOLUTE 0.84 K/ L 0.24-0.36 H COUNT (BEAKER) (test code = 415) EOSINOPHILS ABSOLUTE 0.03 K/ L 0.04-0.36 L COUNT (BEAKER) (test code = 416) BASOPHILS ABSOLUTE 0.02 K/ L 0.01-0.08 COUNT (BEAKER) (test code = 417) IMMATURE 1 % 0-1 GRANULOCYTES-RELATIVE PERCENT (BEAKER) (test code = 2801) BILIRUBIN, TOTAL AND [id number] 15:23:39 Test Item Value Reference Range Interpretation Comments BILIRUBIN TOTAL (BEAKER) (test 28.3 mg/dL 0.2-1.2 H code = 377) BILIRUBIN DIRECT (BEAKER) (test 18.0 mg/dL 0.1-0.5 H code = 706) Strawhat Sizer ID - ADMINOperator ID - ADMINOperator ID - [id number] 15:14:31 Test Item Value Reference Range Interpretation Comments HAPTOGLOBIN (BEAKER) (test code = < mg/dL 14-258 L 366) Strawhat Sizer ID - ADMINLACTATE DEHYDROGENASE (LDH)2022-05-03 15:06:46 Test Item Value Reference Range Interpretation Comments LACTATE DEHYDROGENASE (BEAKER) (test 222 U/L 125-220 H code = 635) Strawhat Sizer ID - [id number] 15:03:45 Test Item Value Reference Range Interpretation Comments D-DIMER QUANTITATIVE (BEAKER) 3.47 MG/L FEU <0.50 H (test code = 671) Intended Use: The D-Dimer Assay can be used to aid in the diagnosis of Deep Vein Thrombosis (DVT) and Pulmonary Embolism Disease (PED).In patients with low pre- test probability, various studies concerning STA Liatest D-dimer test have reported that with a cutoff value of 0.50 MG/L FEU, the Negative Predictive Value (NPV) regarding the exclusion of thrombosis is within 95-100% range. PT/[id number] 15:02:04 Test Item Value Reference Range Interpretation Comments PROTIME (BEAKER) (test 27.0 seconds 11.9-14.2 H code = 759) INR (BEAKER) (test 2.52 See_Comment [Automat ed code = 370) message] The sy stem which generated this result transmitted reference range : <=5.90. The reference range was not used to interpret this result as normal/abnormal . PARTIAL THROMBOPLASTIN 59.4 seconds 22.5-36.0 H TIME (BEAKER) (test code = 760) RECOMMENDED COUMADIN/WARFARIN INR THERAPY RANGESSTANDARD DOSE: 2.0 - 3.0 Includes: PROPHYLAXIS for venous thrombosis, systemic embolization; TREATMENT for venous thrombosis and/or pulmonary embolus.HIGH RISK: Target INR is 2.5-3.5 for patients with mechanical heart valves.CBC (HEMOGRAM ONLY)2022-05-03 14:55:19 Test Item Value Reference Range Interpretation Comments WHITE BLOOD CELL COUNT (BEAKER) 9.3 K/ L 3.5-10.5 (test code = 775) RED BLOOD CELL COUNT (BEAKER) 2.31 M/ L 3.93-5.22 L (test code = 761) HEMOGLOBIN (BEAKER) (test code = 7.3 GM/DL 11.2-15.7 L 410) HEMATOCRIT (BEAKER) (test code = 21.3 % 34.1-44.9 L 411) MEAN CORPUSCULAR VOLUME (BEAKER) 92.2 fL 79.4-94.8 (test code = 753) MEAN CORPUSCULAR HEMOGLOBIN 31.6 pg 25.6-32.2 (BEAKER) (test code = 751) MEAN CORPUSCULAR HEMOGLOBIN CONC 34.3 GM/DL 32.2-35.5 (BEAKER) (test code = 752) RED CELL DISTRIBUTION WIDTH 16.5 % 11.7-14.4 H (BEAKER) (test code = 412) PLATELET COUNT (BEAKER) (test code 22 K/CU MM 150-450 L = 756) MEAN PLATELET VOLUME (BEAKER) 12.0 fL 9.4-12.3 (test code = 754) NUCLEATED RED BLOOD CELLS (BEAKER) 0 /100 WBC 0-0 (test code = 413) RETICULOCYTE [id number] 14:53:05 Test Item Value Reference Range Interpretation Comments RETICULOCYTE COUNT PCT (BEAKER) (test 0.7 % 0.5-1.7 code = 575) Strawhat Sizer ID - [id number] screen, urine, [id number] 11:58:42See scanned reportWestlake Outpatient Medical CenterDrug screen, urine, [id number] 11:58:42See scanned reportWestlake Outpatient Medical CenterPHOSPHATIDYLETHANOL, BLOOD 2022-05-03 11:57:44 Test Item Value Reference Range Interpretation Comments PHOSPHATIDYLETHANOL (PETH) See scanned (test code = 2385587) report See scanned reportANG, NON-TUNNELED CATH >5 Y.O. [id number] 10:18:00 Reason for exam:->need hd Is the patient ?->No When was patient's last menstrual cycle?->04/26/22 [facility] : 1965 Sex: FFINALREPORT Non-tunneled Dialysis Catheter Insertion History: Hemodialysis access Modality: Fluoroscopy and sonography. Sedation: None. Swimming Pool Serviceperson: Ge Costa MD. Cartridge Belt Puncher:Estevan Guzman M.D. Approach: Right internal jugular vein Estimated blood loss: < 5 cc. Specimen:None. Fluoroscopy Time: 0.1 min.Reference Air Kerma (Ka, r): 0.7 mGy. Technique: Informed written con sent was obtained. Discussion of risks, benefits, and alternatives were made with the patient. The patient expressed understanding and agreed to proceed. A universal timeout was performed prior to starting the procedure. All elements maximal sterile barrier technique was utilized for this procedure, including utilization of sterile scrub solution for skin prep, a large sterile sheet to cover the areas of the patient that were not prepped, and hand hygiene, mask, head covering, and sterile gown for performing radiologist and scrub technologist. Initial ultrasound images demonstrate patent and compressible right internal jugular, which was punctured under direct real-time ultrasound guidance with a micropuncture needle. An ultrasound image was saved to PACS. A microwire and sheath were placed. A 0.035 inch wire was placed through the sheath into the IVC. The tract was serially dilated. The 15 cm Schon XL dialysis catheter was placed over the wire with its distal tip terminating in the superior right atrium. The ports were flushed and aspirated easily following placement. The lumens were locked with heparin. The catheter was sutured to the skin to secure its placement. Vital signs were monitoredthroughout the procedure by a nurse, and remained stable. The patient tolerated the procedure well and left the department in the same condition. Results: Spot radiograph of the chest demonstrates thenew non-tunneled dialysis catheter to lie in the expected position with its tip overlying the right atrium. Impression: Successful, uncomplicated placement of a right internal jugular non-tunneled dialysis catheter using sonographic and fluoroscopic guidance. The catheter is ready for immediate use. Signed: Ge Costa MDReport Verified Date/Time: 05/03/2022 10:18:09 Reading Location: [place] [address] Angio Body Reading Room CBC (HEMOGRAM ONLY)2022-05-03 09:00:48 Test Item Value Reference Range Interpretation Comments WHITE BLOOD CELL COUNT (BEAKER) 9.0 K/ L 3.5-10.5 (test code = 775) RED BLOOD CELL COUNT (BEAKER) 1.66 M/ L 3.93-5.22 L (test code = 761) HEMOGLOBIN (BEAKER) (test code = 5.5 GM/DL 11.2-15.7 LL 410) HEMATOCRIT (BEAKER) (test code = 15.7 % 34.1-44.9 L 411) MEAN CORPUSCULAR VOLUME (BEAKER) 94.6 fL 79.4-94.8 (test code = 753) MEAN CORPUSCULAR HEMOGLOBIN 33.1 pg 25.6-32.2 H (BEAKER) (test code = 751) MEAN CORPUSCULAR HEMOGLOBIN CONC 35.0 GM/DL 32.2-35.5 (BEAKER) (test code = 752) RED CELL DISTRIBUTION WIDTH 17.2 % 11.7-14.4 H (BEAKER) (test code = 412) PLATELET COUNT (BEAKER) (test code 22 K/CU MM 150-450 L = 756) NUCLEATED RED BLOOD CELLS (BEAKER) 0 /100 WBC 0-0 (test code = 413) COMPREHENSIVE METABOLIC [id number] 06:14:34 Test Item Value Reference Range Interpretation Comments TOTAL PROTEIN 5.2 gm/dL 6.0-8.3 L (BEAKER) (test code = 770) ALBUMIN (BEAKER) 2.5 g/dL 3.5-5.0 L (test code = 1145) ALKALINE PHOSPHATASE 74 U/L 40-150 (BEAKER) (test code = 346) BILIRUBIN TOTAL 24.7 mg/dL 0.2-1.2 H (BEAKER) (test code = 377) SODIUM (BEAKER) (test 140 meq/L 136-145 code = 381) POTASSIUM (BEAKER) 3.5 meq/L 3.5-5.1 (test code = 379) CHLORIDE (BEAKER) 102 meq/L 98-107 (test code = 382) CO2 (BEAKER) (test 30 meq/L 22-29 H code = 355) BLOOD UREA NITROGEN 19 mg/dL 7-21 (BEAKER) (test code = 354) CREATININE (BEAKER) 3.52 mg/dL 0.57-1.25 H (test code = 358) GLUCOSE RANDOM 109 mg/dL 70-105 H (BEAKER) (test code = 652) CALCIUM (BEAKER) 8.6 mg/dL 8.4-10.2 (test code = 697) AST (SGOT) (BEAKER) 109 U/L 5-34 H (test code = 353) ALT (SGPT) (BEAKER) 52 U/L 6-55 (test code = 347) EGFR (BEAKER) (test 16 mL/min/1.73 ESTIMA KEVIN GFR IS code = 1092) sq m NOT ACCURATE CREATININE CLEARANCE IN PREDICTING GLOMERULAR FILTRATION RATE . ESTIMATED GFR I S NOT APPLICABLE FOR DIALYSIS PATIEN TS. Strawhat Sizer ID - MARCY LOperator ID - MARCY LSpecimen markedly ictericPHOSPHORUS 2022-05-03 06:08:45 Test Item Value Reference Range Interpretation Comments PHOSPHORUS (BEAKER) (test code = 2.4 mg/dL 2.3-4.7 604) Strawhat Sizer ID - MARCY [id number] 06:08:44 Test Item Value Reference Range Interpretation Comments MAGNESIUM (BEAKER) (test code = 1.7 mg/dL 1.6-2.6 627) Strawhat Sizer ID - MARCY LCBC W/PLT COUNT & AUTO [id number] 06:06:15 Test Item Value Reference Range Interpretation Comments WHITE BLOOD CELL COUNT 9.6 K/ L 3.5-10.5 (BEAKER) (test code = 775) RED BLOOD CELL COUNT 1.78 M/ L 3.93-5.22 L (BEAKER) (test code = 761) HEMOGLOBIN (BEAKER) 5.7 GM/DL 11.2-15.7 LL (test code = 410) HEMATOCRIT (BEAKER) 16.6 % 34.1-44.9 L (test code = 411) MEAN CORPUSCULAR VOLUME 93.3 fL 79.4-94.8 (BEAKER) (test code = 753) MEAN CORPUSCULAR 32.0 pg 25.6-32.2 HEMOGLOBIN (BEAKER) (test code = 751) MEAN CORPUSCULAR 34.3 GM/DL 32.2-35.5 HEMOGLOBIN CONC (BEAKER) (test code = 752) RED CELL DISTRIBUTION 17.3 % 11.7-14.4 H WIDTH (BEAKER) (test code = 412) PLATELET COUNT (BEAKER) 22 K/CU MM 150-450 L (test code = 756) MEAN PLATELET VOLUME Unable to report due (BEAKER) (test code = to abn ormal Platelet 754) population distribution. NUCLEATED RED BLOOD 0 /100 WBC 0-0 CELLS (BEAKER) (test code = 413) NEUTROPHILS RELATIVE 85 % PERCENT (BEAKER) (test code = 429) LYMPHOCYTES RELATIVE 8 % PERCENT (BEAKER) (test code = 430) MONOCYTES RELATIVE 6 % PERCENT (BEAKER) (test code = 431) EOSINOPHILS RELATIVE 0 % PERCENT (BEAKER) (test code = 432) BASOPHILS RELATIVE 0 % PERCENT (BEAKER) (test code = 437) NEUTROPHILS ABSOLUTE 8.11 K/ L 1.56-6.13 H COUNT (BEAKER) (test code = 670) LYMPHOCYTES ABSOLUTE 0.77 K/ L 1.18-3.74 L COUNT (BEAKER) (test code = 414) MONOCYTES ABSOLUTE 0.60 K/ L 0.24-0.36 H COUNT (BEAKER) (test code = 415) EOSINOPHILS ABSOLUTE 0.02 K/ L 0.04-0.36 L COUNT (BEAKER) (test code = 416) BASOPHILS ABSOLUTE 0.02 K/ L 0.01-0.08 COUNT (BEAKER) (test code = 417) IMMATURE 1 % 0-1 GRANULOCYTES-RELATIVE PERCENT (BEAKER) (test code = 2801) BLOOD [id number] 06:01:08 Test Item Value Reference Range Interpretation Comments CULTURE (BEAKER) (test No growth in 5 days code = 1095) The specimen volume collected for this blood culture was below the optimum (10 mL per bottle or 20 mL total). Use of lower volumes may adversely affect recovery and/or detection times of some organisms.CALCIUM, [id number] 05:39:22 Test Item Value Reference Range Interpretation Comments CALCIUM IONIZED (BEAKER) (test 1.02 mmol/L 1.12-1.27 L code = 698) PH, BLOOD (BEAKER) (test code = 7.42 1810) PROTHROMBIN [id number] 05:14:37 Test Item Value Reference Range Interpretation Comments PROTIME (BEAKER) 30.0 seconds 11.9-14.2 H (test code = 759) INR (BEAKER) (test 2.89 See_Comment [Automat ed message] code = 370) The system V[employer] generated this result transmitted ref erence range: <=5.90. The reference range was not used to int erpret this result as normal/abnormal . RECOMMENDED COUMADIN/WARFARIN INR THERAPY RANGESSTANDARD DOSE: 2.0 - 3.0 Includes: PROPHYLAXIS for venous thrombosis, systemic embolization; TREATMENT for venous thrombosis and/or pulmonary embolus.HIGH RISK: Target INR is 2.5-3.5 for patients with mechanical heart valves.BLOOD [id number] 01:00:15 Test Item Value Reference Range Interpretation Comments CULTURE (BEAKER) (test No growth in 5 days code = 1095) The specimen volume collected for this blood culture was below the optimum (10 mL per bottle or 20 mL total). Use of lower volumes may adversely affect recovery and/or detection times of some organisms.PET/CT, CARDIAC PERF REST AND [id number] 17:31:00Reason for exam:->urgent liver transplant evaluation [facility] : 1965 Sex: FFINAL REPORT PROCEDURE: MYOCARDIAL PERFUSION PET/CT IMAGING (Rest/Stress)CPT CODE: 18651 INDICATION: Cardiovascular risk stratification prior to liver transplant CARDIOVASCULAR PROFILE:CAD History: NoneRisk Factors: Hypertension, renal diseaseBMI: 22.8Medications: Lisinopril STRESS PROTOC OL:Pharmacologic stress was achieved with a 10-second intravenous infusion of regadenoson 0.4 mg. The radiopharmaceutical was administered 30 seconds after the start of the regadenoson infusion. IMAGING PROTOCOL:Limited low-dose CT imaging was performed for attenuation correction. 40.0 mCi of Rb-82 chloride was injected intravenously at rest, and gated PET images were obtained. Then, 40.0 mCi of Rb-82 chloride was injected intravenously at peak stress, and gated PET images were obtained. Image quality is good. REST FINDINGS:HR: 74/minBP: 159/81 mmHgPrelim. EKG: Normal sinus rhythm.Perfusion: Normal.Wall Motion: Normal (LVEF >70%).LV Volume: Normal.RV Volume: Normal. STRESS FINDINGS:HR: 81/min (49% of MPHR)BP: 165/70 mmHgPrelim. EKG: No ischemic changes.Symptoms: None (treatment not required).Perfusion: Normal.Wall Motion: Normal (LVEF >70%).LV Volume: Not significantly changed from rest. IMPRESSION:1. Normal study.2. Normal myocardial perfusion. 3. Normal resting LVEF, which does not deteriorate with pharmacologic stress.4. Normal extracardiac tracer distribution.5. There is no prior study for comparison. Signed: Joey Willson MDReport Verified Date/Time: 05/02/2022 17:31:43 EBV ANTIBODY, [id number] 12:54:55 Test Item Value Reference Range Interpretation Comments DOROTHY MARSHALL VIRAL CAPSID Positive Negative, Equivocal A ANTIGEN IGG (BEAKER) (test code = 3415) Dorothy Marshall Viral Capsid Antigen IgG Result Interpretation: </= 0.8 Al Negative 0.9-1.0 Al Equivocal >/= 1.1 Al PositiveEBV ANTIBODY, [id number] 12:54:55 Test Item Value Reference Range Interpretation Comments DOROTHY MARSHALL VIRAL CAPSID Negative Negative, Equivocal ANTIGEN IGM (BEAKER) (test code = 3418) Dorothy Marshall Viral Capsid Antigen IgM Result Interpretation: </= 0.8 Al Negative 0.9-1.0 Al Equivocal >/= 1.1 Al PositiveVARICELLA ZOSTER ANTIBODY, [id number] 12:54:54 Test Item Value Reference Range Interpretation Comments VARICELLA ZOSTER IGG (AL) (BEAKER) 3.8 (test code = 3197) VARICELLA ZOSTER RESULT INTERPRETATIONS: <=0.8 Al Nonreactive: Presumed non- immune to VZV 0.9-1.0Al Equivocal >=1.1 Al Reactive: Presumed immune to VZV CYTOMEGALOVIRUS ANTIBODY, [id number] 12:54:54 Test Item Value Reference Range Interpretation Comments CYTOMEGALOVIRUS, IGG (BEAKER) Positive Negative, Equivocal A (test code = 3429) CMV IgG Result Interpretation: </= 0.8 Al Negative 0.9-1.0 Al Equivocal >/=1.1 Al PositiveRUBELLA ANTIBODY, [id number] 12:54:53 Test Item Value Reference Range Interpretation Comments RUBELLA IGG QUANTITATION (BEAKER) 31.0 IU/mL <8.0 H (test code = 572) Rubella IgG Result Interpretation: </= 7.0 IU/mL Negative - Presumed non- immune 8.0 - 9.9 IU/mL Equivocal >= 10.0 IU/mL Positive - Presumed immuneMM, U/S, BREAST, [id number] 11:40:00Reason for exam:->urgent liver transplant evaluation [facility] : 1965 Sex: FMRN#: [id number] - MM, U/S, BREAST, BILATERAL ULTRASOUND OF BOTH BREASTS: 2CLINICAL: Screening. Pre-transplant. No prior exams were available for comparison. Real-time ultrasound of both breasts was performed. Oh scale images of the real-time examination were reviewed. No suspicious solid mass is seen in either breast. IMPRESSION: NEGATIVE There is no sonographic evidence of malignancy. Imaging follow-up with ACR/ACS guidelines. Olga Najera M.D. royal/:05/02/2022 11:40:06 Normal Exam Ultrasound BI-RADS: 1 Negative [id number] MR, PELVIS, [id number] 10:56:00Unlisted Reason for Exam - Click Yes and Enter Reason Below->YesUnlisted Reason for Exam->possible bladder mass [facility] : 1965 Sex: FFINAL REPORT MR, PELVIS, WITH \\T\\ WITHOUT CONTRAST HISTORY: Unlisted Reason for Exampossible bladder mass COMPARISON: None TECHNIQUE: MRI of the pelvis. Multiplanar, multisequence images were obtained without and with intravenous gadolinium contrast. FINDINGS: Bowel: Left colonic diverticulosis. Circumferential wall thickening of the sigmoid colon, probably muscularis propria hypertrophy from chronic diverticulosis.Bladder: The urinary bladder is decompressed and poorly evaluated. Question of a subcentimeter polypoid focus within the posterior right urinary bladder (sagittal series 301 image 23).Reproductive organs: Numerous, greater than 10 uterine fibroids, including a pedunculated7.4 cm fibroid at the fundus and a 7.0 cm right uterine body fibroid which abuts and distorts the endometrium..Lymph nodes: Unremarkable.Peritoneum: Moderate volume ascites.Vessels: Unremarkable.Abdominal wall: Anasarca.Bones: Unremarkable. IMPRESSION: 1.Urinary bladder is completely decompressed and p oorly evaluated. A questionable subcentimeter urinary bladder polypoid lesion, recommend cystoscopy correlation. 2.Multi fibroid uterus. 3.Moderate volume ascites and anasarca. 4.Left colonic diverticulosis. Circumferential wall thickening of the sigmoid colon, probably muscularis propria hypertrophy from chronic diverticulosis. Signed: Chalo Tucker Verified Date/Time: 05/02/2022 10:56:39 Reading Location: [facility] Diagnostic Imaging Reading Room - [place] [id number] COMPREHENSIVE METABOLIC [id number] 07:18:29 Test Item Value Reference Range Interpretation Comments TOTAL PROTEIN 5.7 gm/dL 6.0-8.3 L (BEAKER) (test code = 770) ALBUMIN (BEAKER) 2.7 g/dL 3.5-5.0 L (test code = 1145) ALKALINE PHOSPHATASE 99 U/L 40-150 (BEAKER) (test code = 346) BILIRUBIN TOTAL 26.3 mg/dL 0.2-1.2 H (BEAKER) (test code = 377) SODIUM (BEAKER) (test 139 meq/L 136-145 code = 381) POTASSIUM (BEAKER) 3.7 meq/L 3.5-5.1 (test code = 379) CHLORIDE (BEAKER) 98 meq/L 98-107 (test code = 382) CO2 (BEAKER) (test 31 meq/L 22-29 H code = 355) BLOOD UREA NITROGEN 31 mg/dL 7-21 H (BEAKER) (test code = 354) CREATININE (BEAKER) 4.70 mg/dL 0.57-1.25 H (test code = 358) GLUCOSE RANDOM 152 mg/dL 70-105 H (BEAKER) (test code = 652) CALCIUM (BEAKER) 9.4 mg/dL 8.4-10.2 (test code = 697) AST (SGOT) (BEAKER) 98 U/L 5-34 H (test code = 353) ALT (SGPT) (BEAKER) 51 U/L 6-55 (test code = 347) EGFR (BEAKER) (test 12 mL/min/1.73 ESTIMA KEVIN GFR IS code = 1092) sq m NOT ACCURATE CREATININE CLEARANCE IN PREDICTING GLOMERULAR FILTRATION RATE . ESTIMATED GFR I S NOT APPLICABLE FOR DIALYSIS PATIEN TS. Strawhat Sizer ID - PISANDI LOperator ID - PISANDI LSpecimen markedly ictericPROTHROMBIN TIME/[id number] 05:56:02 Test Item Value Reference Range Interpretation Comments PROTIME (BEAKER) 25.5 seconds 11.9-14.2 H (test code = 759) INR (BEAKER) (test 2.35 See_Comment [Automat ed message] code = 370) The system [employer] generated this result transmitted ref erence range: <=5.90. The reference range was not used to int erpret this result as normal/abnormal . RECOMMENDED COUMADIN/WARFARIN INR THERAPY RANGESSTANDARD DOSE: 2.0 - 3.0 Includes: PROPHYLAXIS for venous thrombosis, systemic embolization; TREATMENT for venous thrombosis and/or pulmonary embolus.HIGH RISK: Target INR is 2.5-3.5 for patients with mechanical heart valves.CBC W/PLT COUNT & AUTO [id number] 05:48:39 Test Item Value Reference Range Interpretation Comments WHITE BLOOD CELL COUNT (BEAKER) 9.6 K/ L 3.5-10.5 (test code = 775) RED BLOOD CELL COUNT (BEAKER) 2.50 M/ L 3.93-5.22 L (test code = 761) HEMOGLOBIN (BEAKER) (test code = 8.0 GM/DL 11.2-15.7 L 410) HEMATOCRIT (BEAKER) (test code = 23.2 % 34.1-44.9 L 411) MEAN CORPUSCULAR VOLUME (BEAKER) 92.8 fL 79.4-94.8 (test code = 753) MEAN CORPUSCULAR HEMOGLOBIN 32.0 pg 25.6-32.2 (BEAKER) (test code = 751) MEAN CORPUSCULAR HEMOGLOBIN CONC 34.5 GM/DL 32.2-35.5 (BEAKER) (test code = 752) RED CELL DISTRIBUTION WIDTH 17.6 % 11.7-14.4 H (BEAKER) (test code = 412) PLATELET COUNT (BEAKER) (test code 37 K/CU MM 150-450 L = 756) MEAN PLATELET VOLUME (BEAKER) 11.6 fL 9.4-12.3 (test code = 754) NUCLEATED RED BLOOD CELLS (BEAKER) 0 /100 WBC 0-0 (test code = 413) NEUTROPHILS RELATIVE PERCENT 80 % (BEAKER) (test code = 429) LYMPHOCYTES RELATIVE PERCENT 10 % (BEAKER) (test code = 430) MONOCYTES RELATIVE PERCENT 8 % (BEAKER) (test code = 431) EOSINOPHILS RELATIVE PERCENT 1 % (BEAKER) (test code = 432) BASOPHILS RELATIVE PERCENT 0 % (BEAKER) (test code = 437) NEUTROPHILS ABSOLUTE COUNT 7.62 K/ L 1.56-6.13 H (BEAKER) (test code = 670) LYMPHOCYTES ABSOLUTE COUNT 0.96 K/ L 1.18-3.74 L (BEAKER) (test code = 414) MONOCYTES ABSOLUTE COUNT (BEAKER) 0.79 K/ L 0.24-0.36 H (test code = 415) EOSINOPHILS ABSOLUTE COUNT 0.09 K/ L 0.04-0.36 (BEAKER) (test code = 416) BASOPHILS ABSOLUTE COUNT (BEAKER) 0.03 K/ L 0.01-0.08 (test code = 417) IMMATURE GRANULOCYTES-RELATIVE 1 % 0-1 PERCENT (BEAKER) (test code = 2801) MR, ABDOMEN, [id number] 15:08:00Unlisted Reason for Exam - Click Yes and Enter Reason Below->Yes Unlisted Reason for Exam->urgent liver transplant evaluation/cirrhosis/screening for cancer [facility] : 1965 Sex: FFINAL REPORT MR, ABDOMEN, WITH \\T\\ WITHOUT CONTRAST HISTORY: Unlisted Reason for Examurgent liver transplant evaluation/cirrhosis/screening for cancer COMPARISON: None. TECHNIQUE: MRI of the abdomen was performed with and without gadolinium. Multiplanar, multisequence images were obtained before and following intravenous injection of intravenous gadolinium contrast. FINDINGS: Hepatobilia ry Findings:Contour and signal intensity: Diffusely nodular and heterogeneous. Borderline steatosis with hepatic fat percentage calculated at 5.0%Focal observations: The arterial phase was missed, withthe phase labeled as "arterial" actually in the portal venous phase. No suspicious liver lesions within the limitations of this exam.Portal vein: Patent, 1.1 cm in diameter.Arterial anatomy: Conventional.Gallbladder and bile ducts: Gallbladder wall thickening which is nonspecific in the setting of chronic liver disease and third spacing of fluid. No biliary ductal dilation.Spleen: Mildly enlarged 13 cm in long axis.Varices: Recanalized umbilical veins..Peritoneum: Moderate volume ascites. AdditionalFindings:Lung bases: Moderate left and small right pleural effusion. Atelectatic changes in the lower lobes bilaterally, some of which restricts diffusion in the right lower lobe.Pancreas: Cystic focusin the pancreatic head measuring 6 mm. No main pancreatic ductal dilation.Adrenals: Unremarkable.Kidn eys and ureters: Unremarkable.Bowel: Unremarkable.Lymph nodes: Unremarkable.Vessels: As above.Abdominal wall: Unremarkable.Bones: Unremarkable. IMPRESSION: 1.No arterial phase, unable to evaluate for arterially enhancing lesions. No suspicious liver lesions within these limitations. 2.Cirrhosis with sequelae of portal hypertension including mild splenomegaly, moderate ascites, and varices as above. 3.Moderate left and small right pleural effusion. Bilateral lower lobe atelectatic changes. Findings concerning for superimposed pneumonia in the right lower lobe. 4.A 6 mm cystic focus in the pancreatichead, possibly a sidebranch IPMN. No main pancreatic ductal dilation. Follow-up guidelines below. AGA Guidelines for the Management of the Asymptomatic Pancreatic Cyst*1. Patients with pancreatic cysts<3 cm without a solid component or dilated pancreatic duct should undergo CT or MRI for surveillance in 1 year and then every 2 years for a total of 5 years if there is no change in size or characteristics (Conditional recommendation, Very low quality evidence)2. Pancreatic cysts with at least 2 high risk features, such as size \\X2265\\ 3 cm, a dilated main pancreatic duct, or the presence of an associated solid component, should be examined with EUS-FNA (Conditional recommendation, Very low quality evidence)3. Pancreatic cysts with only 1 high risk feature may also benefit from EUS-FNA in certain settings, and evaluation by gastroenterology can be considered (Conditional recommendation, Very low quality evidence)4. Changes in the characteristics of the cyst, including development of a solid component, increasing size of the pancreatic duct, and/or diameter \\X2265\\ 3 cm are indications for EUS-FNA (Conditional recommendation, Very low quality evidence). 5. The AGA suggests against continued surveillance of pancreatic cysts if there has been no significant change in the characteristics of thecyst after 5 years of surveillance or if the patient is no longer a surgical candidate. (Conditionalrecommendation, Very low quality evidence) *Signs and symptoms include: hyperamylasemia, recent onset diabetes, severe epigastric pain, steatorrhea, or jaundiceThe AGA recommends that before starting any pancreatic cyst surveillance program, patients should have a clear understanding of the risks and benefits.Note that patients who have a limited life expectancy are unlikely to benefit, and surveillance is inappropriate for patients who are not surgical candidates due to age or severe comorbidities. Gastroenterology [id number] Signed: Chalo Tucker Verified Date/Time: 05/01/2022 15:08:48 Reading Location: [facility] C013Y CT Body Reading Room TOCOCCAL [id number] 13:26:53 Test Item Value Reference Range Interpretation Comments CRYPTOCOCCAL ANTIGEN, SERUM Negative Negative, Interference (BEAKER) (test code = 1828) [id number] 13:08:38 Test Item Value Reference Range Interpretation Comments RPR SCREEN (BEAKER) (test code = Nonreactive Nonreactive 420) JESSIE TITER AND [id number] 12:02:17 Test Item Value Reference Range Interpretation Comments JESSIE TITER :40 (BEAKER) (test code = 1541) JESSIE PATTERN Cytoplasmic/Anti-mi Cytoplas sabiha (BEAKER) (test tochondrial staining is p resent code = 1781) antibodies - see suggestive of comment Anti-mitochondr ial antibodies. If clinically indicated, recommend testi ng for Anti-mitochondr ial antibodies. ANTI-NUCLEAR ANTIBODY (JESSIE)2022-05-01 12:01:49 Test Item Value Reference Range Interpretation Comments ANTI-NUCLEAR ANTIBODY (JESSIE) (BEAKER) Negative Negative (test code = 418) Test performed by IFA method.ECHO W CONTRAST & [id number] 10:25:46 Ejection FractionSLEH ECHO HEARTLAB [facility] ECHO W CONTRAST & [id number] 10:25:46Ejection [facility]SLEH [id number] 09:55:20 Test Item Value Reference Range Interpretation Comments T3 TOTAL (BEAKER) (test code = 0.25 ng/mL 0.60-1.81 L 656) Strawhat Sizer ID - DSENSONHEMOGLOBIN [id number] 08:44:46 Test Item Value Reference Range Interpretation Comments HEMOGLOBIN A1C 5.1 % See_Comment [Automated m essage] ELECTROPHORESIS (BEAKER) The system which (test code = 3811) generated this result transmitted ref erence range: <=5.6%. The reference range was not used to int erpret this result as normal/abnormal . "The A1c is measured using a [facility]ified method. HbA1c value equal to or greater than 6.5% as thediagnosis cutoff for diabetes. An HbA1c value of 5.7- 6.4% indicates increased risk for diabetes (prediabetes)."Strawhat Sizer ID - ADM COMPREHENSIVE METABOLIC [id number] 06:38:57 Test Item Value Reference Range Interpretation Comments TOTAL PROTEIN 6.0 gm/dL 6.0-8.3 (BEAKER) (test code = 770) ALBUMIN (BEAKER) 2.9 g/dL 3.5-5.0 L (test code = 1145) ALKALINE PHOSPHATASE 81 U/L 40-150 (BEAKER) (test code = 346) BILIRUBIN TOTAL 29.3 mg/dL 0.2-1.2 H (BEAKER) (test code = 377) SODIUM (BEAKER) (test 140 meq/L 136-145 code = 381) POTASSIUM (BEAKER) 4.3 meq/L 3.5-5.1 (test code = 379) CHLORIDE (BEAKER) 99 meq/L 98-107 (test code = 382) CO2 (BEAKER) (test 34 meq/L 22-29 H code = 355) BLOOD UREA NITROGEN 21 mg/dL 7-21 (BEAKER) (test code = 354) CREATININE (BEAKER) 3.55 mg/dL 0.57-1.25 H (test code = 358) GLUCOSE RANDOM 118 mg/dL 70-105 H (BEAKER) (test code = 652) CALCIUM (BEAKER) 9.6 mg/dL 8.4-10.2 (test code = 697) AST (SGOT) (BEAKER) 133 U/L 5-34 H (test code = 353) ALT (SGPT) (BEAKER) 55 U/L 6-55 (test code = 347) EGFR (BEAKER) (test 16 mL/min/1.73 ESTIMA KEVIN GFR IS code = 1092) sq m NOT ACCURATE CREATININE CLEARANCE IN PREDICTING GLOMERULAR FILTRATION RATE . ESTIMATED GFR I S NOT APPLICABLE FOR DIALYSIS PATIEN TS. Strawhat Sizer ID - MICHELLE WOperator ID - MICHELLE WSpecimen markedly ictericPHOSPHORUS 2022-05-01 06:30:34 Test Item Value Reference Range Interpretation Comments PHOSPHORUS (BEAKER) (test code = 2.7 mg/dL 2.3-4.7 604) Strawhat Sizer ID - MICHELLE [id number] 06:30:33 Test Item Value Reference Range Interpretation Comments MAGNESIUM (BEAKER) (test code = 1.8 mg/dL 1.6-2.6 627) Strawhat Sizer ID - MICHELLE [id number] 06:20:39 Test Item Value Reference Range Interpretation Comments FERRITIN (BEAKER) (test code = 2103.04 ng/mL 5.00-275.00 H 361) Strawhat Sizer ID - MICHELLE BARTLETTperator ID - MICHELLE WIRON, TIBC, % SAT. (WITHOUT FERRITIN) 2022-05-01 05:26:54 Test Item Value Reference Range Interpretation Comments IRON (BEAKER) (test code = 547) 77.0 ug/dL 40.0-160.0 TOTAL IRON BINDING CAPACITY 50 ug/dL 250-450 L (BEAKER) (test code = 769) IRON % SATURATION (2) (BEAKER) 154 % 20-55 H (test code = 2590) Strawhat Sizer ID Rosina MARTINEZ WPROTHROMBIN TIME/[id number] 05:26:54 Test Item Value Reference Range Interpretation Comments PROTIME (BEAKER) 25.8 seconds 11.9-14.2 H (test code = 759) INR (BEAKER) (test 2.39 See_Comment [Automat ed message] code = 370) The system [employer] generated this result transmitted ref erence range: <=5.90. The reference range was not used to int erpret this result as normal/abnormal . RECOMMENDED COUMADIN/WARFARIN INR THERAPY RANGESSTANDARD DOSE: 2.0 - 3.0 Includes: PROPHYLAXIS for venous thrombosis, systemic embolization; TREATMENT for venous thrombosis and/or pulmonary embolus.HIGH RISK: Target INR is 2.5-3.5 for patients with mechanical heart valves.CALCIUM, [id number] 05:19:29 Test Item Value Reference Range Interpretation Comments CALCIUM IONIZED (BEAKER) (test 1.11 mmol/L 1.12-1.27 L code = 698) PH, BLOOD (BEAKER) (test code = 7.41 1810) CBC W/PLT COUNT & AUTO [id number] 05:08:14 Test Item Value Reference Range Interpretation Comments WHITE BLOOD CELL COUNT (BEAKER) 11.2 K/ L 3.5-10.5 H (test code = 775) RED BLOOD CELL COUNT (BEAKER) 2.52 M/ L 3.93-5.22 L (test code = 761) HEMOGLOBIN (BEAKER) (test code = 8.2 GM/DL 11.2-15.7 L 410) HEMATOCRIT (BEAKER) (test code = 23.3 % 34.1-44.9 L 411) MEAN CORPUSCULAR VOLUME (BEAKER) 92.5 fL 79.4-94.8 (test code = 753) MEAN CORPUSCULAR HEMOGLOBIN 32.5 pg 25.6-32.2 H (BEAKER) (test code = 751) MEAN CORPUSCULAR HEMOGLOBIN CONC 35.2 GM/DL 32.2-35.5 (BEAKER) (test code = 752) RED CELL DISTRIBUTION WIDTH 17.3 % 11.7-14.4 H (BEAKER) (test code = 412) PLATELET COUNT (BEAKER) (test code 37 K/CU MM 150-450 L = 756) MEAN PLATELET VOLUME (BEAKER) 13.1 fL 9.4-12.3 H (test code = 754) NUCLEATED RED BLOOD CELLS (BEAKER) 0 /100 WBC 0-0 (test code = 413) NEUTROPHILS RELATIVE PERCENT 82 % (BEAKER) (test code = 429) LYMPHOCYTES RELATIVE PERCENT 8 % (BEAKER) (test code = 430) MONOCYTES RELATIVE PERCENT 8 % (BEAKER) (test code = 431) EOSINOPHILS RELATIVE PERCENT 1 % (BEAKER) (test code = 432) BASOPHILS RELATIVE PERCENT 0 % (BEAKER) (test code = 437) NEUTROPHILS ABSOLUTE COUNT 9.17 K/ L 1.56-6.13 H (BEAKER) (test code = 670) LYMPHOCYTES ABSOLUTE COUNT 0.92 K/ L 1.18-3.74 L (BEAKER) (test code = 414) MONOCYTES ABSOLUTE COUNT (BEAKER) 0.89 K/ L 0.24-0.36 H (test code = 415) EOSINOPHILS ABSOLUTE COUNT 0.06 K/ L 0.04-0.36 (BEAKER) (test code = 416) BASOPHILS ABSOLUTE COUNT (BEAKER) 0.02 K/ L 0.01-0.08 (test code = 417) IMMATURE GRANULOCYTES-RELATIVE 1 % 0-1 PERCENT (BEAKER) (test code = 2801) RETICULOCYTE [id number] 05:06:07 Test Item Value Reference Range Interpretation Comments RETICULOCYTE COUNT PCT (BEAKER) (test 0.5 % 0.5-1.7 code = 575) Strawhat Sizer ID - [id number], MANDIBLE, MIN 4 [id number] 20:42:00Reason for exam:- >urgent liver transplant evaluationShould this be performed at the bedside?->Yes[facility] : 1965 Sex: FFINAL REPORT TECHNIQUE: 5 views of the mandible. INDICATION: urgent liver transplant evaluation. COMPARISON: None. IMPRESSION:Oral cavity is edentulous. As such, there is no dental or periodontal disease. No acute osseous abnormality. No significant soft tissue finding. Paranasal sinusesappear clear. Signed: [facility] Merrill [facility] Verified Date/Time: 04/30/2022 20:42:40 RAD, CHEST, 2 [id number] 20:41:00Reason for exam:->urgent liver transplant evaluationShould this be performed at the bedside?->Yes [facility] : 1965 Sex: FFINAL REPORT RAD, CHEST, 2 VIEWS INDICATION: urgent liver transplant evaluation COMPARISON: 04/28/2022 FINDINGS: Portable frontal view of the chest. IMPRESSION: Support Lines: Stable. Lungs and pleura: There are increasing bibasilar streaky parenchymal opacity suggestive of pulmonary edema. Pneumonitis should be excluded clinically. There is also increased small left pleural effusion. Nopneumothorax. Heart and mediastinum: Stable contours. Additional findings: None. Signed: Deanna Merrill Verified Date/Time: 04/30/2022 20:41:16 MIN D, [id number] 19:29:12 Test Item Value Reference Range Interpretation Comments VITAMIN D 25-OH (BUDDY) (test code = < ng/mL 6.6-49.9 L 2764) Effective 07/24/2017: Reference Range ChangeNew: 6.6-49.9 ng/mL Previous: 13.0- 47.8 ng/mLRecommendedVitamin D Target Range: 30.0-40.0 ng/mLOperator ID - DB Carotid doppler [id number] 18:07:56Ejection FractionSLEH ECHO HEARTLAB [facility] StanfordCarotid doppler [id number] 18:07:56Ejection [facility]ractionSLEH [facility]IN2022-[facility] 17:48:36 Test Item Value Reference Range Interpretation Comments FERRITIN (BUDDY) (test code = 2165.81 ng/mL 5.00-275.00 H 361) Strawhat Sizer ID - BSOperator ID - BSBLOOD GAS, [id number] 17:24:48 Test Item Value Reference Range Interpretation Comments PH ARTERIAL (BEAKER) (test code = 7.54 7.35-7.45 H 383) PCO2 ARTERIAL (BEAKER) (test code 47 mm Hg 35-45 H = 384) PO2 ARTERIAL (BEAKER) (test code 128 mm Hg 80-90 H = 385) O2 SATURATION ARTERIAL (BEAKER) 98.9 % 96.0-97.0 H (test code = 386) HCO3 ARTERIAL (BEAKER) (test code 40 mmol/L 21-29 HH = 388) BASE EXCESS ARTERIAL (BEAKER) 15.5 mmol/L -2.0-3.0 H (test code = 387) PATIENT TEMPERATURE (BEAKER) 36.4 (test code = 1818) FIO2 (BEAKER) (test code = 1819) 28.0 [id number] 17:04:59 Test Item Value Reference Range Interpretation Comments THYROID STIMULATING HORMONE 0.069 uIU/mL 0.350-4.940 L (BEAKER) (test code = 772) Strawhat Sizer ID - [id number] 17:03:23 Test Item Value Reference Range Interpretation Comments T4 TOTAL (BEAKER) (test code = 895) 2.2 ug/dL 4.9-11.7 L Strawhat Sizer ID - BSHEPATITIS B CORE ANTIBODY, [id number] 17:01:40 Test Item Value Reference Range Interpretation Comments HEPATITIS B CORE TOTAL ANTIBODY Nonreactive Nonreactive (BEAKER) (test code = 497) Strawhat Sizer ID - BSHIV-1 ANTIGEN WITH HIV-1/2 [id number] 17:01:40 Test Item Value Reference Range Interpretation Comments HIV-1 ANTIGEN WITH HIV 1\\T\\2 Nonreactive Nonreactive ANTIBODY (2) (BEAKER) (test code = 2586) Strawhat Sizer ID - BSCARCINOEMBRYONIC ANTIGEN (CEA)2022-04-30 17:01:39 Test Item Value Reference Range Interpretation Comments CARCINOEMBRYONIC ANTIGEN (BEAKER) 3.0 ng/mL 0.0-5.0 (test code = 685) Strawhat Sizer ID - BSALPHA FETOPROTEIN (AFP), TUMOR [id number] 17:01:39 Test Item Value Reference Range Interpretation Comments ALPHA-FETOPROTEIN (BEAKER) (test 6.8 ng/mL <10.0 code = 1094) Strawhat Sizer ID - BSIRON, TIBC, % SAT. (WITHOUT FERRITIN)2022-04-30 16:43:23 Test Item Value Reference Range Interpretation Comments IRON (BEAKER) (test code = 547) 69.0 ug/dL 40.0-160.0 TOTAL IRON BINDING CAPACITY 46 ug/dL 250-450 L (BEAKER) (test code = 769) IRON % SATURATION (2) (BEAKER) 150 % 20-55 H (test code = 2590) Strawhat Sizer ID - [id number] 16:43:12 Test Item Value Reference Range Interpretation Comments FIBRINOGEN LEVEL (BEAKER) (test 126 mg/dl 225-434 L code = 658) [id number] 16:43:12 Test Item Value Reference Range Interpretation Comments TRANSFERRIN (BEAKER) (test code = 37 mg/dL 174-382 L 541) Strawhat Sizer ID - BSSpecimen markedly pjvirjdLATCR-6-[id number] 16:40:53 Test Item Value Reference Range Interpretation Comments ALPHA-1 ANTITRYPSIN (BEAKER) 114.10 mg/dL 90.00-200.00 (test code = 502) Strawhat Sizer ID - [id number] 16:40:14 Test Item Value Reference Range Interpretation Comments ETHANOL (BEAKER) < mg/dL See_Comment [Automated message] The (test code = 400) system [facility] generated this result tra nsmitted reference range : <=10. The reference r graciela was not used to int erpret this result as normal/abnormal . Strawhat Sizer ID - [id number] 16:38:30 Test Item Value Reference Range Interpretation Comments PARTIAL THROMBOPLASTIN TIME 55.8 seconds 22.5-36.0 H (BEAKER) (test code = 760) CALCIUM, [id number] 16:36:31 Test Item Value Reference Range Interpretation Comments CALCIUM IONIZED (BEAKER) (test 0.96 mmol/L 1.12-1.27 L code = 698) PH, BLOOD (BEAKER) (test code = 7.46 9080) LIPID [id number] 15:24:58 Test Item Value Reference Range Interpretation Comments TRIGLYCERIDES (BEAKER) 109 mg/dL (test code = 540) CHOLESTEROL (BEAKER) 40 mg/dL (test code = 631) HDL CHOLESTEROL (BEAKER) < mg/dL (test code = 976) LDL CHOLESTEROL > mg/dL Unable to ca lculate CALCULATED (BEAKER) (test code = 633) Triglyceride Reference Range: Low Risk <150 Borderline 150-199 High Risk 200- 499 Very High Risk >=500Cholesterol Reference Range: Low Risk <200 Borderline 200-239 High Risk >240HDL Cholesterol Reference Range: Low Risk >=60 High Risk <40LDL Cholesterol Reference Range: Optimal <100 Near Optimal 100-129 Borderline 130-159 High 160-189 Very High >=190 Strawhat Sizer ID - BSSpecimen markedly ictericBILIRUBIN, [id number] 15:24:53 Test Item Value Reference Range Interpretation Comments BILIRUBIN DIRECT (BEAKER) (test 17.7 mg/dL 0.1-0.5 H code = 706) Strawhat Sizer ID - BSOperator ID - BSGAMMA GLUTAMYL TRANSFERASE (GGT)2022-04-30 15:24:42 Test Item Value Reference Range Interpretation Comments GAMMA GLUTAMYL TRANSFERASE (BEAKER) 67 U/L 9-64 H (test code = 364) Strawhat Sizer ID - BSSpecimen markedly [id number] 15:24:36 Test Item Value Reference Range Interpretation Comments PHOSPHORUS (BEAKER) (test code = 2.8 mg/dL 2.3-4.7 604) Strawhat Sizer ID - BSURIC [id number] 15:24:36 Test Item Value Reference Range Interpretation Comments URIC ACID (BEAKER) (test code = 5.5 mg/dL 2.6-7.2 773) Strawhat Sizer ID - BSSpecimen markedly [id number] 15:24:36 Test Item Value Reference Range Interpretation Comments MAGNESIUM (BEAKER) (test code = 1.7 mg/dL 1.6-2.6 627) Strawhat Sizer ID - BSCOMPREHENSIVE METABOLIC [id number] 06:08:35 Test Item Value Reference Range Interpretation Comments TOTAL PROTEIN 6.3 gm/dL 6.0-8.3 (BEAKER) (test code = 770) ALBUMIN (BEAKER) 3.3 g/dL 3.5-5.0 L (test code = 1145) ALKALINE PHOSPHATASE 85 U/L 40-150 (BEAKER) (test code = 346) BILIRUBIN TOTAL > mg/dL 0.2-1.2 H (BEAKER) (test code = 377) SODIUM (BEAKER) (test 143 meq/L 136-145 code = 381) POTASSIUM (BEAKER) 3.0 meq/L 3.5-5.1 L (test code = 379) CHLORIDE (BEAKER) 92 meq/L 98-107 L (test code = 382) CO2 (BEAKER) (test 38 meq/L 22-29 H code = 355) BLOOD UREA NITROGEN 37 mg/dL 7-21 H (BEAKER) (test code = 354) CREATININE (BEAKER) 5.38 mg/dL 0.57-1.25 H (test code = 358) GLUCOSE RANDOM 102 mg/dL 70-105 (BEAKER) (test code = 652) CALCIUM (BEAKER) 9.2 mg/dL 8.4-10.2 (test code = 697) AST (SGOT) (BEAKER) 178 U/L 5-34 H (test code = 353) ALT (SGPT) (BEAKER) 62 U/L 6-55 H (test code = 347) EGFR (BEAKER) (test 10 mL/min/1.73 ESTIMA KEVIN GFR IS code = 1092) sq m NOT ACCURATE CREATININE CLEARANCE IN PREDICTING GLOMERULAR FILTRATION RATE . ESTIMATED GFR I S NOT APPLICABLE FOR DIALYSIS PATIEN TS. Strawhat Sizer ID - MICHELLE WSpecimen markedly ictericCBC W/PLT COUNT & AUTO [id number] 05:50:48 Test Item Value Reference Range Interpretation Comments WHITE BLOOD CELL COUNT (BEAKER) 11.5 K/ L 3.5-10.5 H (test code = 775) RED BLOOD CELL COUNT (BEAKER) 2.57 M/ L 3.93-5.22 L (test code = 761) HEMOGLOBIN (BEAKER) (test code = 8.4 GM/DL 11.2-15.7 L 410) HEMATOCRIT (BEAKER) (test code = 23.1 % 34.1-44.9 L 411) MEAN CORPUSCULAR VOLUME (BEAKER) 89.9 fL 79.4-94.8 (test code = 753) MEAN CORPUSCULAR HEMOGLOBIN 32.7 pg 25.6-32.2 H (BEAKER) (test code = 751) MEAN CORPUSCULAR HEMOGLOBIN CONC 36.4 GM/DL 32.2-35.5 H (BEAKER) (test code = 752) RED CELL DISTRIBUTION WIDTH 16.7 % 11.7-14.4 H (BEAKER) (test code = 412) PLATELET COUNT (BEAKER) (test code 45 K/CU MM 150-450 L = 756) MEAN PLATELET VOLUME (BEAKER) 13.6 fL 9.4-12.3 H (test code = 754) NUCLEATED RED BLOOD CELLS (BEAKER) 0 /100 WBC 0-0 (test code = 413) NEUTROPHILS RELATIVE PERCENT 80 % (BEAKER) (test code = 429) LYMPHOCYTES RELATIVE PERCENT 10 % (BEAKER) (test code = 430) MONOCYTES RELATIVE PERCENT 8 % (BEAKER) (test code = 431) EOSINOPHILS RELATIVE PERCENT 0 % (BEAKER) (test code = 432) BASOPHILS RELATIVE PERCENT 0 % (BEAKER) (test code = 437) NEUTROPHILS ABSOLUTE COUNT 9.13 K/ L 1.56-6.13 H (BEAKER) (test code = 670) LYMPHOCYTES ABSOLUTE COUNT 1.17 K/ L 1.18-3.74 L (BEAKER) (test code = 414) MONOCYTES ABSOLUTE COUNT (BEAKER) 0.91 K/ L 0.24-0.36 H (test code = 415) EOSINOPHILS ABSOLUTE COUNT 0.05 K/ L 0.04-0.36 (BEAKER) (test code = 416) BASOPHILS ABSOLUTE COUNT (BEAKER) 0.03 K/ L 0.01-0.08 (test code = 417) IMMATURE GRANULOCYTES-RELATIVE 2 % 0-1 H PERCENT (BEAKER) (test code = 2801) PROTHROMBIN [id number] 05:27:24 Test Item Value Reference Range Interpretation Comments PROTIME (BEAKER) 28.6 seconds 11.9-14.2 H (test code = 759) INR (BEAKER) (test 2.72 See_Comment [Automat ed message] code = 370) The system [employer] generated this result transmitted ref erence range: <=5.90. The reference range was not used to int erpret this result as normal/abnormal . RECOMMENDED COUMADIN/WARFARIN INR THERAPY RANGESSTANDARD DOSE: 2.0 - 3.0 Includes: PROPHYLAXIS for venous thrombosis, systemic embolization; TREATMENT for venous thrombosis and/or pulmonary embolus.HIGH RISK: Target INR is 2.5-3.5 for patients with mechanical heart valves.HEMOGLOBIN AND [id number] 10:30:21 Test Item Value Reference Range Interpretation Comments HEMOGLOBIN (BEAKER) (test code = 6.2 GM/DL 11.2-15.7 L 410) HEMATOCRIT (BEAKER) (test code = 17.1 % 34.1-44.9 L 411) Strawhat Sizer ID - [id number] ID - [id number] AND [id number] 10:14:04 Test Item Value Reference Range Interpretation Comments HEMOGLOBIN (BEAKER) (test code = 6.7 GM/DL 11.2-15.7 L 410) HEMATOCRIT (BEAKER) (test code = 18.1 % 34.1-44.9 L 411) Strawhat Sizer ID - [id number] ID - [id number] METABOLIC [id number] 06:39:20 Test Item Value Reference Range Interpretation Comments TOTAL PROTEIN 5.9 gm/dL 6.0-8.3 L (BEAKER) (test code = 770) ALBUMIN (BEAKER) 3.2 g/dL 3.5-5.0 L (test code = 1145) ALKALINE PHOSPHATASE 73 U/L 40-150 (BEAKER) (test code = 346) BILIRUBIN TOTAL 27.7 mg/dL 0.2-1.2 H (BEAKER) (test code = 377) SODIUM (BEAKER) (test 142 meq/L 136-145 code = 381) POTASSIUM (BEAKER) 3.2 meq/L 3.5-5.1 L (test code = 379) CHLORIDE (BEAKER) 99 meq/L 98-107 (test code = 382) CO2 (BEAKER) (test 32 meq/L 22-29 H code = 355) BLOOD UREA NITROGEN 30 mg/dL 7-21 H (BEAKER) (test code = 354) CREATININE (BEAKER) 4.37 mg/dL 0.57-1.25 H (test code = 358) GLUCOSE RANDOM 118 mg/dL 70-105 H (BEAKER) (test code = 652) CALCIUM (BEAKER) 8.8 mg/dL 8.4-10.2 (test code = 697) AST (SGOT) (BEAKER) 217 U/L 5-34 H (test code = 353) ALT (SGPT) (BEAKER) 62 U/L 6-55 H (test code = 347) EGFR (BEAKER) (test 13 mL/min/1.73 ESTIMA KEVIN GFR IS code = 1092) sq m NOT ACCURATE CREATININE CLEARANCE IN PREDICTING GLOMERULAR FILTRATION RATE . ESTIMATED GFR I S NOT APPLICABLE FOR DIALYSIS PATIEN TS. Strawhat Sizer ID - KWAKU GOperator ID - KWAKU GSpecimen markedly ictericCBC W/PLT COUNT & AUTO [id number] 06:28:43 Test Item Value Reference Range Interpretation Comments WHITE BLOOD CELL COUNT (BEAKER) 6.8 K/ L 3.5-10.5 (test code = 775) RED BLOOD CELL COUNT (BEAKER) 1.99 M/ L 3.93-5.22 L (test code = 761) HEMOGLOBIN (BEAKER) (test code = 6.6 GM/DL 11.2-15.7 L 410) HEMATOCRIT (BEAKER) (test code = 17.8 % 34.1-44.9 L 411) MEAN CORPUSCULAR VOLUME (BEAKER) 89.4 fL 79.4-94.8 (test code = 753) MEAN CORPUSCULAR HEMOGLOBIN 33.2 pg 25.6-32.2 H (BEAKER) (test code = 751) MEAN CORPUSCULAR HEMOGLOBIN CONC 37.1 GM/DL 32.2-35.5 H (BEAKER) (test code = 752) RED CELL DISTRIBUTION WIDTH 16.3 % 11.7-14.4 H (BEAKER) (test code = 412) PLATELET COUNT (BEAKER) (test code 44 K/CU MM 150-450 L = 756) MEAN PLATELET VOLUME (BEAKER) 12.6 fL 9.4-12.3 H (test code = 754) NUCLEATED RED BLOOD CELLS (BEAKER) 0 /100 WBC 0-0 (test code = 413) NEUTROPHILS RELATIVE PERCENT 75 % (BEAKER) (test code = 429) LYMPHOCYTES RELATIVE PERCENT 15 % (BEAKER) (test code = 430) MONOCYTES RELATIVE PERCENT 8 % (BEAKER) (test code = 431) EOSINOPHILS RELATIVE PERCENT 1 % (BEAKER) (test code = 432) BASOPHILS RELATIVE PERCENT 0 % (BEAKER) (test code = 437) NEUTROPHILS ABSOLUTE COUNT 5.11 K/ L 1.56-6.13 (BEAKER) (test code = 670) LYMPHOCYTES ABSOLUTE COUNT 1.01 K/ L 1.18-3.74 L (BEAKER) (test code = 414) MONOCYTES ABSOLUTE COUNT (BEAKER) 0.55 K/ L 0.24-0.36 H (test code = 415) EOSINOPHILS ABSOLUTE COUNT 0.04 K/ L 0.04-0.36 (BEAKER) (test code = 416) BASOPHILS ABSOLUTE COUNT (BEAKER) 0.01 K/ L 0.01-0.08 (test code = 417) IMMATURE GRANULOCYTES-RELATIVE 1 % 0-1 PERCENT (BEAKER) (test code = 2801) PROTHROMBIN [id number] 06:28:27 Test Item Value Reference Range Interpretation Comments PROTIME (BEAKER) 29.3 seconds 11.9-14.2 H (test code = 759) INR (BEAKER) (test 2.80 See_Comment [Automat ed message] code = 370) The system [employer] generated this result transmitted ref erence range: <=5.90. The reference range was not used to int erpret this result as normal/abnormal . RECOMMENDED COUMADIN/WARFARIN INR THERAPY RANGESSTANDARD DOSE: 2.0 - 3.0 Includes: PROPHYLAXIS for venous thrombosis, systemic embolization; TREATMENT for venous thrombosis and/or pulmonary embolus.HIGH RISK: Target INR is 2.5-3.5 for patients with mechanical heart valves.CBC W/PLT COUNT & AUTO [id number] 14:39:01 Test Item Value Reference Range Interpretation Comments WHITE BLOOD CELL COUNT (BEAKER) 8.1 K/ L 3.5-10.5 (test code = 775) RED BLOOD CELL COUNT (BEAKER) 2.19 M/ L 3.93-5.22 L (test code = 761) HEMOGLOBIN (BEAKER) (test code = 7.2 GM/DL 11.2-15.7 L 410) HEMATOCRIT (BEAKER) (test code = 19.1 % 34.1-44.9 L 411) MEAN CORPUSCULAR VOLUME (BEAKER) 87.2 fL 79.4-94.8 (test code = 753) MEAN CORPUSCULAR HEMOGLOBIN 32.9 pg 25.6-32.2 H (BEAKER) (test code = 751) MEAN CORPUSCULAR HEMOGLOBIN CONC 37.7 GM/DL 32.2-35.5 H (BEAKER) (test code = 752) RED CELL DISTRIBUTION WIDTH 15.7 % 11.7-14.4 H (BEAKER) (test code = 412) PLATELET COUNT (BEAKER) (test code 38 K/CU MM 150-450 L = 756) MEAN PLATELET VOLUME (BEAKER) 13.6 fL 9.4-12.3 H (test code = 754) NUCLEATED RED BLOOD CELLS (BEAKER) 0 /100 WBC 0-0 (test code = 413) NEUTROPHILS RELATIVE PERCENT 83 % (BEAKER) (test code = 429) LYMPHOCYTES RELATIVE PERCENT 8 % (BEAKER) (test code = 430) MONOCYTES RELATIVE PERCENT 7 % (BEAKER) (test code = 431) EOSINOPHILS RELATIVE PERCENT 1 % (BEAKER) (test code = 432) BASOPHILS RELATIVE PERCENT 0 % (BEAKER) (test code = 437) NEUTROPHILS ABSOLUTE COUNT 6.76 K/ L 1.56-6.13 H (BEAKER) (test code = 670) LYMPHOCYTES ABSOLUTE COUNT 0.65 K/ L 1.18-3.74 L (BEAKER) (test code = 414) MONOCYTES ABSOLUTE COUNT (BEAKER) 0.56 K/ L 0.24-0.36 H (test code = 415) EOSINOPHILS ABSOLUTE COUNT 0.05 K/ L 0.04-0.36 (BEAKER) (test code = 416) BASOPHILS ABSOLUTE COUNT (BEAKER) 0.01 K/ L 0.01-0.08 (test code = 417) IMMATURE GRANULOCYTES-RELATIVE 1 % 0-1 PERCENT (BEAKER) (test code = 2801) U/S, HEPATIC PORTAL VESSEL WITH [id number] 10:48:00Reason for exam:- >Evalaute hepatic parenchyma and vasculature [facility] : 1965 Sex: FFINAL REPORT EXAMINATION: U/S, HEPATIC PORTAL VESSEL WITH DOPPLER. INDICATION: 56-year-old female with no clinical indication. COMPARISON: None. TECHNIQUE:Grayscale, color Doppler, and spectral Doppler ultrasound of the hepatic arteries, hepatic veins, and portal veins was performed. FINDINGS: ----- Hepatic Doppler ----- Hepatic arteries: Patent with appropriate direction of flow.Hepatic veins: Patent with appropriate direction of flow.Portal veins: Biphasic flow is noted in the right portal vein.Splenic vein: Patent with appropriate direction of flow. Aorta: The proximal, mid, and distal aorta measures 1.8, 1.6, and 1.6 cm respectively.IVC: The visualized IVC is patent. ----- Abdomen ----- Liver:The liver measures 12.8 cm and is nodular in contour. No focal hepatic lesions. Biliarysystem:The gallbladder contains biliary sludge; the gallbladder wall measures 0.3 cm. No pericholecystic fluid. Negative sonographic Cross's sign. The CBD is not visualized No evidence of intrahepatic biliary dilation. Pancreas:The pancreas is not well-visualized. Right kidney:The right kidney is normal in echogenicity and measures 10.6 x 4.8 x 5.9 cm; the cortical thickness is 0.9 cm. No focal renal lesions. No evidence of hydronephrosis. Other:Small volume ascites on the images provided. IMPRESSION: Hepatic Doppler:1.All visualized hepatic vessels are patent. Biphasic flow is noted in the right portal vein Abdomen:1.Morphologic changes of cirrhosis with small volume ascites. Signed: Cody Garland MDReport Verified Date/Time: 04/28/2022 10:48:06 Reading Location: [facility] C013X [facility] Consult Reading Room RAD, CHEST, 1 VIEW, NON [id number] 07:42:00Reason for exam:->edemaShould this be performed at the bedside?->YesIs the patient ?->No [facility] : 1965 Sex: FFINAL REPORT RAD, CHEST, 1 VIEW, NON DEPT INDICATION: edema COMPARISON: None FINDINGS:Portable frontal view of the chest. IMPRESSION: Support Lines: Central catheter tip overlies the atriocaval junction Lungs and pleura: Lungs are clear No significant pneumothorax. Heart and mediastinum: Normal contours. Additional findings: None. Signed: Carlyle Bansal Verified Date/Time: 04/28/2022 07:42:55 Sodium, random [id number] 07:37:38 Test Item Value Reference Range Interpretation Comments Sodium Urine (test 21 meq/L code = 2955-3) ADRIA (test code = Reference Range: No ADRIA) NormalsOperator ID - BS [facility], random [id number] 07:37:38 Test Item Value Reference Range Interpretation Comments Sodium Urine (test 21 meq/L code = 2955-3) ADRIA (test code = Reference Range: No ADRIA) NormalsOperator ID - BS [facility] HospitalODIUM, RANDOM [id number] 07:37:38 Test Item Value Reference Range Interpretation Comments SODIUM URINE (BEAKER) (test code = 21 meq/L 243) Reference Range: No NormalsOperator ID - BSCreatinine, random [id number] 07:35:11 Test Item Value Reference Range Interpretation Comments Creatinine, Ur 132.9 mg/dL (test code = 2161-8) ADRIA (test code = Reference Range: No ADRIA) NormalsOperator ID - BS [facility] centerine, random [id number] 07:35:11 Test Item Value Reference Range Interpretation Comments Creatinine, Ur 132.9 mg/dL (test code = 2161-8) ADRIA (test code = Reference Range: No ADRIA) NormalsOperator ID - BS [facility], RANDOM [id number] 07:35:11 Test Item Value Reference Range Interpretation Comments CREATININE URINE (BEAKER) (test 132.9 mg/dL code = 375) Reference Range: No NormalsOperator ID - BSCOMPREHENSIVE METABOLIC PANEL 2022-04-28 06:33:41 Test Item Value Reference Range Interpretation Comments TOTAL PROTEIN 5.5 gm/dL 6.0-8.3 L (BEAKER) (test code = 770) ALBUMIN (BEAKER) 2.4 g/dL 3.5-5.0 L (test code = 1145) ALKALINE PHOSPHATASE 95 U/L 40-150 (BEAKER) (test code = 346) BILIRUBIN TOTAL 29.1 mg/dL 0.2-1.2 H (BEAKER) (test code = 377) SODIUM (BEAKER) (test 137 meq/L 136-145 code = 381) POTASSIUM (BEAKER) 3.4 meq/L 3.5-5.1 L (test code = 379) CHLORIDE (BEAKER) 104 meq/L 98-107 (test code = 382) CO2 (BEAKER) (test 23 meq/L 22-29 code = 355) BLOOD UREA NITROGEN 58 mg/dL 7-21 H (BEAKER) (test code = 354) CREATININE (BEAKER) 6.70 mg/dL 0.57-1.25 H (test code = 358) GLUCOSE RANDOM 111 mg/dL 70-105 H (BEAKER) (test code = 652) CALCIUM (BEAKER) 8.3 mg/dL 8.4-10.2 L (test code = 697) AST (SGOT) (BEAKER) 143 U/L 5-34 H (test code = 353) ALT (SGPT) (BEAKER) 46 U/L 6-55 (test code = 347) EGFR (BEAKER) (test 8 mL/min/1.73 ESTIMAT ED GFR IS code = 1092) sq m NOT ACCURATE CREATININE CLEARANCE IN PREDICTING GLOMERULAR FILTRATION RATE . ESTIMATED GFR I S NOT APPLICABLE FOR DIALYSIS PATIEN TS. Strawhat Sizer ID - BSOperator ID - BSSpecimen markedly [id number] 06:32:37 Test Item Value Reference Range Interpretation Comments PHOSPHORUS (BEAKER) (test code = 3.5 mg/dL 2.3-4.7 604) Strawhat Sizer ID - BSCREATINE KINASE (CK)2022-04-28 06:32:37 Test Item Value Reference Range Interpretation Comments CREATINE KINASE TOTAL (BEAKER) (test 43 U/L 29-200 code = 380) Strawhat Sizer ID - [id number] 06:32:36 Test Item Value Reference Range Interpretation Comments MAGNESIUM (BEAKER) (test code = 1.9 mg/dL 1.6-2.6 627) Strawhat Sizer ID - BSURINALYSIS W/ [id number] 06:23:41 Test Item Value Reference Range Interpretation Comments COLOR (BEAKER) (test code = 470) Brown CLARITY (BEAKER) (test code = 469) Hazy SPECIFIC GRAVITY UA (BEAKER) (test 1.016 1.001-1.035 code = 468) PH UA (BEAKER) (test code = 467) 6.5 5.0-8.0 PROTEIN UA (BEAKER) (test code = 30 mg/dL Negative A 464) GLUCOSE UA (BEAKER) (test code = Negative Negative 365) KETONES UA (BEAKER) (test code = Trace Negative A 371) BILIRUBIN UA (BEAKER) (test code = Positive Negative A 462) BLOOD UA (BEAKER) (test code = Large Negative A 461) NITRITE UA (BEAKER) (test code = Negative Negative 465) LEUKOCYTE ESTERASE UA (BEAKER) Moderate Negative A (test code = 466) UROBILINOGEN UA (BEAKER) (test 0.2 mg/dL 0.2-1.0 code = 463) RBC UA (BEAKER) (test code = 519) 267 /HPF WBC UA (BEAKER) (test code = 520) 5 /HPF BACTERIA (BEAKER) (test code = Occasional 517) MUCUS (BEAKER) (test code = 1574) Rare SQUAMOUS EPITHELIAL (BEAKER) (test 19 /HPF code = 516) HYALINE CASTS (BEAKER) (test code 4 /LPF = 514) CRYSTALS, URINE (BEAKER) (test None Seen code = 1521) AMORPHOUS CRYSTALS (BEAKER) (test Rare code = 1584) SOURCE(BEAKER) (test code = 2795) Strawhat Sizer ID - [auto]Strawhat Sizer ID - techB-TYPE NATRIURETIC FACTOR (BNP)2022-04-28 06:15:52 Test Item Value Reference Range Interpretation Comments B-TYPE NATRIURETIC PEPTIDE 1300 pg/mL 0-100 H (BEAKER) (test code = 700) Strawhat Sizer ID - BSPROTHROMBIN TIME/[id number] 06:08:06 Test Item Value Reference Range Interpretation Comments PROTIME (BEAKER) 27.4 seconds 11.9-14.2 H (test code = 759) INR (BEAKER) (test 2.58 See_Comment [Automat ed message] code = 370) The system [employer] generated this result transmitted ref erence range: <=5.90. The reference range was not used to int erpret this result as normal/abnormal . RECOMMENDED COUMADIN/WARFARIN INR THERAPY RANGESSTANDARD DOSE: 2.0 - 3.0 Includes: PROPHYLAXIS for venous thrombosis, systemic embolization; TREATMENT for venous thrombosis and/or pulmonary embolus.HIGH RISK: Target INR is 2.5-3.5 for patients with mechanical heart valves.CBC W/PLT COUNT & AUTO [id number] 06:00:05 Test Item Value Reference Range Interpretation Comments WHITE BLOOD CELL COUNT (BEAKER) 6.8 K/ L 3.5-10.5 (test code = 775) RED BLOOD CELL COUNT (BEAKER) 2.27 M/ L 3.93-5.22 L (test code = 761) HEMOGLOBIN (BEAKER) (test code = 7.5 GM/DL 11.2-15.7 L 410) HEMATOCRIT (BEAKER) (test code = 20.3 % 34.1-44.9 L 411) MEAN CORPUSCULAR VOLUME (BEAKER) 89.4 fL 79.4-94.8 (test code = 753) MEAN CORPUSCULAR HEMOGLOBIN 33.0 pg 25.6-32.2 H (BEAKER) (test code = 751) MEAN CORPUSCULAR HEMOGLOBIN CONC 36.9 GM/DL 32.2-35.5 H (BEAKER) (test code = 752) RED CELL DISTRIBUTION WIDTH 15.9 % 11.7-14.4 H (BEAKER) (test code = 412) PLATELET COUNT (BEAKER) (test code 57 K/CU MM 150-450 L = 756) MEAN PLATELET VOLUME (BEAKER) 12.0 fL 9.4-12.3 (test code = 754) NUCLEATED RED BLOOD CELLS (BEAKER) 0 /100 WBC 0-0 (test code = 413) NEUTROPHILS RELATIVE PERCENT 82 % (BEAKER) (test code = 429) LYMPHOCYTES RELATIVE PERCENT 9 % (BEAKER) (test code = 430) MONOCYTES RELATIVE PERCENT 7 % (BEAKER) (test code = 431) EOSINOPHILS RELATIVE PERCENT 1 % (BEAKER) (test code = 432) BASOPHILS RELATIVE PERCENT 0 % (BEAKER) (test code = 437) NEUTROPHILS ABSOLUTE COUNT 5.57 K/ L 1.56-6.13 (BEAKER) (test code = 670) LYMPHOCYTES ABSOLUTE COUNT 0.61 K/ L 1.18-3.74 L (BEAKER) (test code = 414) MONOCYTES ABSOLUTE COUNT (BEAKER) 0.50 K/ L 0.24-0.36 H (test code = 415) EOSINOPHILS ABSOLUTE COUNT 0.06 K/ L 0.04-0.36 (BEAKER) (test code = 416) BASOPHILS ABSOLUTE COUNT (BEAKER) 0.02 K/ L 0.01-0.08 (test code = 417) IMMATURE GRANULOCYTES-RELATIVE 1 % 0-1 PERCENT (BEAKER) (test code = 2801) CALCIUM, [id number] 05:52:44 Test Item Value Reference Range Interpretation Comments CALCIUM IONIZED (BEAKER) (test 0.99 mmol/L 1.12-1.27 L code = 698) PH, BLOOD (BEAKER) (test code = 7.44 1810) HEPATITIS A ANTIBODY, [id number] 19:32:57 Test Item Value Reference Range Interpretation Comments HEPATITIS A IGG ANTIBODY (BEAKER) Reactive Nonreactive A (test code = 2797) Strawhat Sizer ID - BSHEPATITIS B SURFACE [id number] 19:32:57 Test Item Value Reference Range Interpretation Comments HEPATITIS B SURFACE ANTIBODY < mIU/mL <8.0 (BEAKER) (test code = 647) Strawhat Sizer ID - BSHEPATITIS B CORE ANTIBODY, [id number] 19:32:41 Test Item Value Reference Range Interpretation Comments HEPATITIS B CORE IGM ANTIBODY Nonreactive Nonreactive (BEAKER) (test code = 645) Strawhat Sizer ID - BSHEPATITIS A ANTIBODY, [id number] 19:32:41 Test Item Value Reference Range Interpretation Comments HEPATITIS A IGM ANTIBODY (BEAKER) Nonreactive Nonreactive (test code = 498) Strawhat Sizer ID - BSHEPATITIS B SURFACE [id number] 19:32:40 Test Item Value Reference Range Interpretation Comments HEPATITIS B SURFACE ANTIGEN (2) Nonreactive Nonreactive (BEAKER) (test code = 2585) Specimen is considered negative for HBsAg.HEPATITIS C [id number] 19:29:42 Test Item Value Reference Range Interpretation Comments HEPATITIS C ANTIBODY (BEAKER) Nonreactive Nonreactive (test code = 367) Strawhat Sizer ID - BSLACTIC ACID, [id number] 19:04:14 Test Item Value Reference Range Interpretation Comments LACTATE BLOOD VENOUS (2) (BEAKER) 0.93 mmol/L 0.50-2.20 (test code = 2872) Strawhat Sizer ID - BSSpecimen markedly ictericU/S, RENAL, [id number] 17:19:00 Reason for exam:->akiShould this be performed at the bedside?->Yes [facility] : 1965 Sex: FFINAL REPORT TECHNIQUE: Grayscale ultrasound of the kidneys and bladder. INDICATION: dominique. COMPARISON: None. FINDINGS: RIGHT KIDNEY: The right kidney measures 10.5 x 4.7 x 5.3 cm with a cortical thickness of 1.4 cm. Increased cortical echogenicity. No solid mass lesions. No hydronephrosis. Renal artery and vein are patent. LEFT KIDNEY: The left kidney measures 11.2 x 5.6 x 5.2 cm with acortical thickness of 1.3 cm. Increased cortical echogenicity. No solid mass lesions. No hydronephrosis. Renal artery and vein are patent. BLADDER: The urinary bladder volume is 35 mL. The linear area in the deep and a portion of the left bladder is most likely a prominent ureterovesicular junction. The liver is nodular, and there is mild perihepatic ascites. IMPRESSION: 1.The increased bilateral renal cortical echogenicity is concerning for medical renal disease. No hydronephrosis 2.The linear areain the dependent bladder is most likely a prominent ureterovesicular junction, but this is indeterminate. Consider further evaluation with a CT of the abdomen and pelvis with and without intravenous con trast, urogram protocol. 3.The nodularity of the liver and mild perihepatic ascites are concerning for cirrhosis with portal hypertension. Signed: Hero Chacko MDReport Verified Date/Time: 04/27/2022 17:19:37 BILIRUBIN, [id number] 17:17:09 Test Item Value Reference Range Interpretation Comments BILIRUBIN DIRECT (BEAKER) (test 22.7 mg/dL 0.1-0.5 H code = 706) Strawhat Sizer ID - BSOperator ID - BSBASIC METABOLIC [id number] 15:53:47 Test Item Value Reference Range Interpretation Comments SODIUM (BEAKER) 134 meq/L 136-145 L (test code = 381) POTASSIUM (BEAKER) 3.5 meq/L 3.5-5.1 (test code = 379) CHLORIDE (BEAKER) 107 meq/L 98-107 (test code = 382) CO2 (BEAKER) (test 14 meq/L 22-29 L code = 355) BLOOD UREA NITROGEN 91 mg/dL 7-21 H (BEAKER) (test code = 354) CREATININE (BEAKER) 9.21 mg/dL 0.57-1.25 H (test code = 358) GLUCOSE RANDOM 128 mg/dL 70-105 H (BUDDY) (test code = 652) CALCIUM (BEAKER) 8.7 mg/dL 8.4-10.2 (test code = 697) EGFR (BUDDY) (test 5 mL/min/1.73 ESTIMAT ED GFR IS code = 1092) sq m NOT ACCURATE CREATININE CLEARANCE IN PREDICTING GLOMERULAR FILTRATION RATE . ESTIMATED GFR I S NOT APPLICABLE FOR DIALYSIS PATIEN TS. Strawhat Sizer ID - BSSpecimen markedly ictericSARS-COV2/RT-PCR ([facility]) 2022-04-27 13:37:35 Test Item Value Reference Range Interpretation Comments SARS-COV2/RT-PCR (test Negative Not Detected, Negative, code = 2108523) See external report for linked test SARS-COV-2 PERFORMING LAB [facility] (test code = 9465145) Negative result for this test determines that SARS-CoV-2 RNA was not present in the specimen above the Limit of Detection (LOD). However, Negative results do not preclude SARS-CoV-2 infection and should not be used as the sole basis for treatment or patient management decisions. Negative results must be combined with clinical observations, patient history, and epidemiological information. A false negative result may occur if a specimen is improperly collected, transported or handled. A false negative result should be considered if patient's recent exposures or clinical presentation indicate that COVID-19 (SARS-CoV-2) is likely and diagnostic tests for other causes of illness are negative. Re-testing should be considered in cases of suspected false negatives.The limit of detection for this assay is 800 copies/mL.This SARS CoV-2 test is a real-time RT-PCR test intended for the qualitative detection of nucleic acid from SARS-CoV-2 in a nasopharyngeal swab specimen collected from individuals suspected of COVID-19 by their healthcare provider.This test has not been Food and Drug Administration (FDA) cleared or approved. This is a modified version of an approved Emergency Use Authorization (EUA) and is in the process of review by the FDA. Once authorized by the FDA, the issued EUA will be effective until the declaration that circumstances exist justifying the authorization of the emergency use ofin vitro diagnostic tests for detection and/or diagnosis of COVID-19 is terminated under Section 564(b)(2) of the Act or the EUA is revoked under Section 564(g) of the Act.Fact Sheet for Healthcare Prov iders:https://www.[employer]/sites/default/files/product/documents/Fact_Sheet_HC _Ipuwqrcha_Jaaz_SCLB-UdR-9.pdfFact Sheet for Healthcare Patients:https://www.[employer]/sites/default/files/product/docume nts/Gkmb_Rcqdk_Osuecghp_Kbxi_CKZW-ZtQ-3.pdfPerforming Laboratory:[facility], [place] [id number] 10:42:18 Test Item Value Reference Range Interpretation Comments PHOSPHORUS (BEAKER) 5.3 mg/dL 2.3-4.7 H Specimen slightly (test code = 604) hemolyzed Strawhat Sizer ID - MICHELLE [id number] 07:41:00 Test Item Value Reference Range Interpretation Comments CORTISOL, TOTAL (BEAKER) (test code 9.6 ug/dL 3.7-19.4 = 2755) Strawhat Sizer ID - ADMINHEPATITIS PANEL, [id number] 07:36:38 Test Item Value Reference Range Interpretation Comments HEPATITIS A IGM ANTIBODY (BEAKER) Nonreactive Nonreactive (test code = 498) HEPATITIS B CORE IGM ANTIBODY Nonreactive Nonreactive (BEAKER) (test code = 645) HEPATITIS C ANTIBODY (BEAKER) Nonreactive Nonreactive (test code = 367) HEPATITIS B SURFACE ANTIGEN (2) Nonreactive Nonreactive (BEAKER) (test code = 2585) Strawhat Sizer ID - ADMINCOMPREHENSIVE METABOLIC [id number] 07:27:05 Test Item Value Reference Range Interpretation Comments TOTAL PROTEIN 6.9 gm/dL 6.0-8.3 Specimen sligh tly (BEAKER) (test code = hemoly zed 770) ALBUMIN (BEAKER) 2.7 g/dL 3.5-5.0 L Specimen sl ightly (test code = 1145) hemolyzed ALKALINE PHOSPHATASE 120 U/L 40-150 (BEAKER) (test code = 346) BILIRUBIN TOTAL 37.0 mg/dL 0.2-1.2 H Specimen sli ghtly (BEAKER) (test code = hemoly zed 377) SODIUM (BEAKER) (test 135 meq/L 136-145 L code = 381) POTASSIUM (BEAKER) 4.0 meq/L 3.5-5.1 Specimen slightly (test code = 379) hemolyzed CHLORIDE (BEAKER) 107 meq/L 98-107 (test code = 382) CO2 (BEAKER) (test 15 meq/L 22-29 L code = 355) BLOOD UREA NITROGEN 86 mg/dL 7-21 H (BEAKER) (test code = 354) CREATININE (BEAKER) 8.95 mg/dL 0.57-1.25 H Specimen slightly (test code = 358) hemolyzed GLUCOSE RANDOM 104 mg/dL 70-105 (BEAKER) (test code = 652) CALCIUM (BEAKER) 8.7 mg/dL 8.4-10.2 (test code = 697) AST (SGOT) (BEAKER) 125 U/L 5-34 H Specimen slightly (test code = 353) hemolyzed ALT (SGPT) (BEAKER) 49 U/L 6-55 Specimen slightly (test code = 347) hemolyzed EGFR (BEAKER) (test 6 mL/min/1.73 ESTIMAT ED GFR IS code = 1092) sq m NOT ACCURATE CREATININE CLEARANCE IN PREDICTING GLOMERULAR FILTRATION RATE . ESTIMATED GFR I S NOT APPLICABLE FOR DIALYSIS PATIEN TS. Strawhat Sizer ID - ADMINOperator ID - ADMINSpecimen markedly ictericUrinalysis with Microscopic If [id number] 07:23:47 Test Item Value Reference Range Interpretation Comments Color, UA (test code = Dark Yellow 5778-6) Clarity, UA (test code = Hazy 5767-9) Specific [place], UA (test 1.014 1.001-1.035 code = 5811-5) pH, UA (test code = 6.0 5.0-8.0 5803-2) Protein, UA (test code = 20 mg/dL Negative A 98413-0) Glucose, UA (test code = Negative Negative 365) Ketones, UA (test code = Negative Negative 2514-8) Bilirubin, UA (test code = Positive Negative A 84236-5) Blood, UA (test code = Moderate Negative A 99362-1) Nitrite, UA (test code = Negative Negative 5802-4) Leukocytes, UA (test code Small Negative A = 5799-2) Urobilinogen, UA (test 2.0 mg/dL 0.2-1.0 H code = 47800-9) Specimen Source (test code = 2795) ADRIA (test code = ADRIA) Strawhat Sizer ID - [auto]Strawhat Sizer ID - tech Lab Interpretation (test Abnormal code = 71863-1) [facility] If [id number] 07:23:47 Test Item Value Reference Range Interpretation Comments Color, UA (test code = Dark Yellow 5778-6) Clarity, UA (test code = Hazy 5767-9) Specific [place], UA (test 1.014 1.001-1.035 code = 5811-5) pH, UA (test code = 6.0 5.0-8.0 5803-2) Protein, UA (test code = 20 mg/dL Negative A 76865-5) Glucose, UA (test code = Negative Negative 365) Ketones, UA (test code = Negative Negative 2514-8) Bilirubin, UA (test code = Positive Negative A 44623-0) Blood, UA (test code = Moderate Negative A 45622-8) Nitrite, UA (test code = Negative Negative 5802-4) Leukocytes, UA (test code Small Negative A = 5799-2) Urobilinogen, UA (test 2.0 mg/dL 0.2-1.0 H code = 31188-4) Specimen Source (test code = 2795) ADRIA (test code = ADRIA) Strawhat Sizer ID - [auto]Strawhat Sizer ID - tech Lab Interpretation (test Abnormal code = 93857-2) [facility] WITH MICROSCOPIC IF [id number] 07:23:47 Test Item Value Reference Range Interpretation Comments COLOR (BEAKER) (test code = 470) Dark Yellow CLARITY (BEAKER) (test code = Hazy 469) SPECIFIC GRAVITY UA (BEAKER) 1.014 1.001-1.035 (test code = 468) PH UA (BEAKER) (test code = 467) 6.0 5.0-8.0 PROTEIN UA (BEAKER) (test code = 20 mg/dL Negative A 464) GLUCOSE UA (BEAKER) (test code = Negative Negative 365) KETONES UA (BEAKER) (test code = Negative Negative 371) BILIRUBIN UA (BEAKER) (test code Positive Negative A = 462) BLOOD UA (BEAKER) (test code = Moderate Negative A 461) NITRITE UA (BEAKER) (test code = Negative Negative 465) LEUKOCYTE ESTERASE UA (BEAKER) Small Negative A (test code = 466) UROBILINOGEN UA (BEAKER) (test 2.0 mg/dL 0.2-1.0 H code = 463) SOURCE(BEAKER) (test code = 2795) Strawhat Sizer ID - [auto]Strawhat Sizer ID - techUrinalysis Microscopic [id number] 07:23:31 Test Item Value Reference Range Interpretation Comments RBC, UA (test 1 See_Comment [Automated me ssage] code = 77322-7) The system [employer] generated this result transmit kevin reference range : /HPF. The refer ence range was not u sed to interpret th is result as normal/abnormal . WBC, UA (test 24 See_Comment [Automated me ssage] code = 5821-4) The system [employer] generated this result transmit kevin reference range : /HPF. The refer ence range was not u sed to interpret th is result as normal/abnormal . Bacteria, UA Occasional (test code = 04208-5) Mucus (test Rare code = 8247-9) Squam Epithel, 26 See_Comment [Automated m essage] UA (test code = The system [employer] 70866-5) generated this result transmit kevin reference range : /HPF. The refer ence range was not u sed to interpret th is result as normal/abnormal . Casts (test 7 See_Comment [Automated mes enrique] code = 9842-6) The system [employer] generated this result transmit kevin reference range : /LPF. The refer ence range was not u sed to interpret th is result as normal/abnormal . Crystals, Urine Occasional (test code = 68462-4) ADRIA (test code Strawhat Sizer ID - tech = ADRIA) [facility] Center[facility]inal[facility] Microscopic [id number] 07:23:31 Test Item Value Reference Range Interpretation Comments RBC, UA (test 1 See_Comment [Automated me ssage] code = 54893-8) The system [employer] generated this result transmit kevin reference range : /HPF. The refer ence range was not u sed to interpret th is result as normal/abnormal . WBC, UA (test 24 See_Comment [Automated me ssage] code = 5821-4) The system [employer] generated this result transmit kevin reference range : /HPF. The refer ence range was not u sed to interpret th is result as normal/abnormal . Bacteria, UA Occasional (test code = 16779-7) Mucus (test Rare code = 8247-9) Squam Epithel, 26 See_Comment [Automated m essage] UA (test code = The system w [facility] 17538-1) generated this result transmit kevin reference range : /HPF. The refer ence range was not u sed to interpret th is result as normal/abnormal . Casts (test 7 See_Comment [Automated mes enrique] code = 9842-6) The system [facility] generated this result transmit kevin reference range : /LPF. The refer ence range was not u sed to interpret th is result as normal/abnormal . Crystals, Urine Occasional (test code = 52889-4) ADRIA (test code Strawhat Sizer ID - tech = ADRIA) [facility] CenterURINAL[facility]IS [id number] 07:23:31 Test Item Value Reference Range Interpretation Comments RBC UA (BEAKER) (test code = 519) 1 /HPF WBC UA (BEAKER) (test code = 520) 24 /HPF BACTERIA (BEAKER) (test code = Occasional 517) MUCUS (BEAKER) (test code = 1574) Rare SQUAMOUS EPITHELIAL (BEAKER) (test 26 /HPF code = 516) CASTS (BEAKER) (test code = 1579) 7 /LPF CRYSTALS, URINE (BEAKER) (test Occasional code = 1521) Strawhat Sizer ID - techCBC (HEMOGRAM ONLY)2022-04-27 06:53:04 Test Item Value Reference Range Interpretation Comments WHITE BLOOD CELL COUNT (BEAKER) 9.1 K/ L 3.5-10.5 (test code = 775) RED BLOOD CELL COUNT (BEAKER) 2.98 M/ L 3.93-5.22 L (test code = 761) HEMOGLOBIN (BEAKER) (test code = 10.0 GM/DL 11.2-15.7 L 410) HEMATOCRIT (BEAKER) (test code = 27.1 % 34.1-44.9 L 411) MEAN CORPUSCULAR VOLUME (BEAKER) 90.9 fL 79.4-94.8 (test code = 753) MEAN CORPUSCULAR HEMOGLOBIN 33.6 pg 25.6-32.2 H (BEAKER) (test code = 751) MEAN CORPUSCULAR HEMOGLOBIN CONC 36.9 GM/DL 32.2-35.5 H (BEAKER) (test code = 752) RED CELL DISTRIBUTION WIDTH 15.9 % 11.7-14.4 H (BEAKER) (test code = 412) PLATELET COUNT (BEAKER) (test code 88 K/CU MM 150-450 L = 756) MEAN PLATELET VOLUME (BEAKER) 12.9 fL 9.4-12.3 H (test code = 754) NUCLEATED RED BLOOD CELLS (BEAKER) 0 /100 WBC 0-0 (test code = 413) BASIC METABOLIC [id number] 01:14:44 Test Item Value Reference Range Interpretation Comments SODIUM (BEAKER) 134 meq/L 136-145 L (test code = 381) POTASSIUM (BEAKER) 2.6 meq/L 3.5-5.1 LL (test code = 379) CHLORIDE (BEAKER) 104 meq/L 98-107 (test code = 382) CO2 (BEAKER) (test 14 meq/L 22-29 L code = 355) BLOOD UREA NITROGEN 86 mg/dL 7-21 H (BEAKER) (test code = 354) CREATININE (BEAKER) 8.97 mg/dL 0.57-1.25 H (test code = 358) GLUCOSE RANDOM 102 mg/dL 70-105 (BEAKER) (test code = 652) CALCIUM (BEAKER) 8.4 mg/dL 8.4-10.2 (test code = 697) EGFR (BEAKER) (test 6 mL/min/1.73 ESTIMAT ED GFR IS code = 1092) sq m NOT ACCURATE CREATININE CLEARANCE IN PREDICTING GLOMERULAR FILTRATION RATE . ESTIMATED GFR I S NOT APPLICABLE FOR DIALYSIS PATIEN TS. Strawhat Sizer ID - ADMINSpecimen markedly ictericCOMPREHENSIVE METABOLIC PANEL 2022-04-26 21:13:25 Test Item Value Reference Range Interpretation Comments TOTAL PROTEIN 6.1 gm/dL 6.0-8.3 (BEAKER) (test code = 770) ALBUMIN (BEAKER) 2.3 g/dL 3.5-5.0 L (test code = 1145) ALKALINE PHOSPHATASE 109 U/L 40-150 (BEAKER) (test code = 346) BILIRUBIN TOTAL 31.7 mg/dL 0.2-1.2 H (BEAKER) (test code = 377) SODIUM (BEAKER) (test 135 meq/L 136-145 L code = 381) POTASSIUM (BEAKER) 2.5 meq/L 3.5-5.1 LL (test code = 379) CHLORIDE (BEAKER) 106 meq/L 98-107 (test code = 382) CO2 (BEAKER) (test 13 meq/L 22-29 L code = 355) BLOOD UREA NITROGEN 83 mg/dL 7-21 H (BEAKER) (test code = 354) CREATININE (BEAKER) 8.73 mg/dL 0.57-1.25 H (test code = 358) GLUCOSE RANDOM 101 mg/dL 70-105 (BEAKER) (test code = 652) CALCIUM (BEAKER) 8.2 mg/dL 8.4-10.2 L (test code = 697) AST (SGOT) (BEAKER) 108 U/L 5-34 H (test code = 353) ALT (SGPT) (BEAKER) 43 U/L 6-55 (test code = 347) EGFR (BEAKER) (test 6 mL/min/1.73 ESTIMAT ED GFR IS code = 1092) sq m NOT ACCURATE CREATININE CLEARANCE IN PREDICTING GLOMERULAR FILTRATION RATE . ESTIMATED GFR I S NOT APPLICABLE FOR DIALYSIS PATIEN TS. Strawhat Sizer ID - ADMINOperator ID - ADMINSpecimen markedly ictericPROTHROMBIN [id number] 20:59:18 Test Item Value Reference Range Interpretation Comments PROTIME (BEAKER) 28.9 seconds 11.9-14.2 H (test code = 759) INR (BEAKER) (test 2.76 See_Comment [Automat ed message] code = 370) The system [employer] generated this result transmitted ref erence range: <=5.90. The reference range was not used to int erpret this result as normal/abnormal . RECOMMENDED COUMADIN/WARFARIN INR THERAPY RANGESSTANDARD DOSE: 2.0 - 3.0 Includes: PROPHYLAXIS for venous thrombosis, systemic embolization; TREATMENT for venous thrombosis and/or pulmonary embolus.HIGH RISK: Target INR is 2.5-3.5 for patients with mechanical heart valves.CBC W/PLT COUNT & AUTO [id number] 20:53:26 Test Item Value Reference Range Interpretation Comments WHITE BLOOD CELL COUNT (BEAKER) 9.7 K/ L 3.5-10.5 (test code = 775) RED BLOOD CELL COUNT (BEAKER) 2.67 M/ L 3.93-5.22 L (test code = 761) HEMOGLOBIN (BEAKER) (test code = 8.8 GM/DL 11.2-15.7 L 410) HEMATOCRIT (BEAKER) (test code = 24.0 % 34.1-44.9 L 411) MEAN CORPUSCULAR VOLUME (BEAKER) 89.9 fL 79.4-94.8 (test code = 753) MEAN CORPUSCULAR HEMOGLOBIN 33.0 pg 25.6-32.2 H (BEAKER) (test code = 751) MEAN CORPUSCULAR HEMOGLOBIN CONC 36.7 GM/DL 32.2-35.5 H (BEAKER) (test code = 752) RED CELL DISTRIBUTION WIDTH 15.9 % 11.7-14.4 H (BEAKER) (test code = 412) PLATELET COUNT (BEAKER) (test code 72 K/CU MM 150-450 L = 756) MEAN PLATELET VOLUME (BEAKER) 12.8 fL 9.4-12.3 H (test code = 754) NUCLEATED RED BLOOD CELLS (BEAKER) 0 /100 WBC 0-0 (test code = 413) NEUTROPHILS RELATIVE PERCENT 87 % (BEAKER) (test code = 429) LYMPHOCYTES RELATIVE PERCENT 6 % (BEAKER) (test code = 430) MONOCYTES RELATIVE PERCENT 7 % (BEAKER) (test code = 431) EOSINOPHILS RELATIVE PERCENT 0 % (BEAKER) (test code = 432) BASOPHILS RELATIVE PERCENT 0 % (BEAKER) (test code = 437) NEUTROPHILS ABSOLUTE COUNT 8.45 K/ L 1.56-6.13 H (BEAKER) (test code = 670) LYMPHOCYTES ABSOLUTE COUNT 0.53 K/ L 1.18-3.74 L (BEAKER) (test code = 414) MONOCYTES ABSOLUTE COUNT (BEAKER) 0.63 K/ L 0.24-0.36 H (test code = 415) EOSINOPHILS ABSOLUTE COUNT 0.01 K/ L 0.04-0.36 L (BEAKER) (test code = 416) BASOPHILS ABSOLUTE COUNT (BEAKER) 0.01 K/ L 0.01-0.08 (test code = 417) IMMATURE GRANULOCYTES-RELATIVE 1 % 0-1 PERCENT (BEAKER) (test code = 2801)
[2022-10-15] MEDS ORDERED: predniSONE 20 MG TAB ONE (22:08)
[2022-10-15] MEDS ORDERED: FAMOTIDINE 20 MG/2 ML VIAL IV ONE (22:08)
[2022-10-15] MEDS ORDERED: DIPHENHYDRAMINE 50 MG/ML VIAL ONE (22:08)
[2022-10-15] MEDS ORDERED: METHYLPREDNISOLONE 125 MG INJ ONE (22:08)
[2022-10-15 22:58] LABS: Hematocrit 42.8 % (36.0-45.0); Lymphocytes % 11.9 % (15.3-44.8); MCV 96.6 fL (80-100); RBC Red Blood Cell Count 4.43 M/uL (3.86-4.86)
[2022-10-15 23:21] LABS: Albumin 3.3 g/dL (3.4-5.0); Bilirubin Total 0.4 mg/dL (0.2-1.0); Potassium 4.7 mmol/L (3.5-5.1); Protein, Total 6.7 g/dL (6.4-8.2)
--- NOTE | 2022-10-15 23:49 | EDPHYS ---
Physician Documentation [facility] Name: Loulou Treviño Age: 57 yrs Sex: Female : 1965 Arrival Date: 10/15/2022 Time: 21:41 Bed 16 Private MD: NILSA Physician Prosper Ohara HPI: 10/15 23:00 This 57 yrs old Female presents to ER via Ambulatory with complaints of Hives. rosalie 23:00 hives. Onset: The symptoms/episode began/occurred just prior to arrival. Severity of rosalie symptoms: At their worst the symptoms were mild in the emergency department the symptoms are unchanged. The patient has not experienced similar symptoms in the past. Historical: - Allergies: 21:49 No Known Allergies; vc1 - PMHx: 21:49 Hypertensive disorder; Dialysis; Kidney disease; vc1 - PSHx: 21:49 Tumor removal stomach; dialysis port; Liver transplant; vc1 - Immunization history:: Client reports receiving the 2nd dose of the Covid vaccine. - Social history:: Smoking status: Patient denies any tobacco usage or history of. ROS: 23:01 Constitutional: Negative for fever, chills, and weight loss, Eyes: Negative for injury, rosalie pain, redness, and discharge, ENT: Negative for injury, pain, and discharge, Neck: Negative for injury, pain, and swelling, Cardiovascular: Negative for chest pain, palpitations, and edema, Respiratory: Negative for shortness of breath, cough, wheezing, and pleuritic chest pain, Abdomen/GI: Negative for abdominal pain, nausea, vomiting, diarrhea, and constipation, Back: Negative for injury and pain, : Negative for injury, bleeding, discharge, and swelling, MS/Extremity: Negative for injury and deformity, Neuro: Negative for headache, weakness, numbness, tingling, and seizure, Psych: Negative for depression, anxiety, suicide ideation, homicidal ideation, and hallucinations, Allergy/Immunology: Negative for hives, rash, and allergies, Endocrine: Negative for neck swelling, polydipsia, polyuria, polyphagia, and marked weight changes, Hematologic/Lymphatic: Negative for swollen nodes, abnormal bleeding, and unusual bruising. 23:01 Skin: Positive for rash. Exam: 23:01 Constitutional: This is a well developed, well nourished patient who is awake, alert, rosalie and in no acute distress. Head/Face: Normocephalic, atraumatic. Eyes: Pupils equal round and reactive to light, extra-ocular motions intact. Lids and lashes normal. Conjunctiva and sclera are non-icteric and not injected. Cornea within normal limits. Periorbital areas with no swelling, redness, or edema. ENT: Nares patent. No nasal discharge, no septal abnormalities noted. Tympanic membranes are normal and external auditory canals are clear. Oropharynx with no redness, swelling, or masses, exudates, or evidence of obstruction, uvula midline. Mucous membranes moist. Neck: Trachea midline, no thyromegaly or masses palpated, and no cervical lymphadenopathy. Supple, full range of motion without nuchal rigidity, or vertebral point tenderness. No Meningismus. Chest/axilla: Normal chest wall appearance and motion. Nontender with no deformity. No lesions are appreciated. Cardiovascular: Regular rate and rhythm with a normal S1 and S2. No gallops, murmurs, or rubs. Normal PMI, no JVD. No pulse deficits. Respiratory: Lungs have equal breath sounds bilaterally, clear to auscultation and percussion. No rales, rhonchi or wheezes noted. No increased work of breathing, no retractions or nasal flaring. Abdomen/GI: Soft, non-tender, with normal bowel sounds. No distension or tympany. No guarding or rebound. No evidence of tenderness throughout. Back: No spinal tenderness. No costovertebral tenderness. Full range of motion. Female : Normal external genitalia. MS/ Extremity: Pulses equal, no cyanosis. Neurovascular intact. Full, normal range of motion. Neuro: Awake and alert, GCS 15, oriented to person, place, time, and situation. Cranial nerves II-XII grossly intact. Motor strength 5/5 in all extremities. Sensory grossly intact. Cerebellar exam normal. Normal gait. Psych: Awake, alert, with orientation to person, place and time. Behavior, mood, and affect are within normal limits. 23:01 Skin: Appearance: Color: normal in color, Temperature: normal temperature, Moisture: normal moisture, petechiae, not noted, abscess, not appreciated, cellulitis, is not appreciated, induration, is not appreciated, urticaria. Vital Signs: 21:45 BP 101 / 76; Pulse 105; Resp 18; Temp 98.8; Pulse Ox 99% ; vc1 21:45 Weight 51.71 kg; Height 5 ft. 3 in. (160.02 cm); Pain 9/10; bb 21:58 Weight 63.5 kg; bb 21:58 Body Mass Index 24.80 (63.50 kg, 160.02 cm) bb MDM: 21:57 Patient medically screened. rosalie 21:59 Patient medically screened. rosalie 23:46 Differential diagnosis: allergic reaction. Data reviewed: vital signs, nurses notes, [facility] lab test result(s). 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 Test interpretation: by ED physician or midlevel provider:. Counseling: I had a detailed discussion with the patient and/or guardian regarding: the historical points, exam findings, and any diagnostic results supporting the discharge/admit diagnosis, lab results, the need for outpatient follow up, for definitive care, a family practitioner. 10/15 21:59 Order name: CBC with Diff; Complete Time: 23:00 [facility] 10/15 21:59 Order name: Comprehensive Metabolic Panel; Complete Time: 23:39 [facility] 10/15 21:59 Order name: IV Saline Lock - Large Bore; Complete Time: 22:50 [facility] Administered Medications: 22:03 Drug: predniSONE 40 mg Route: PO; ha1 22:35 Drug: Benadryl (diphenhydrAMINE) 50 mg Route: IVP; Site: left antecubital; ha1 22:40 Drug: Pepcid (famotidine) 40 mg Route: IVP; Site: left antecubital; ha1 23:04 Drug: SOLU-Medrol (methylPrednisoLONE) 125 mg Route: IVP; Site: left jugular; ha1 Disposition Summary: 10/15/22 23:48 Discharge Ordered Location: Home rosalie Problem: new rosalie Symptoms: have improved rosalie Condition: Stable rosalie Diagnosis - Urticaria, unspecified rosalie - Rash and other nonspecific skin eruption rosalie - End stage renal disease - on hd rosalie Followup: rosalie - With: Private Physician - When: 2 - 3 days - Reason: Recheck today's complaints, Continuance of care, Re-evaluation by your physician Discharge Instructions: - Discharge Summary Sheet rosalie - Hives rosalie - Rash, Adult, [id number] rosalie - Hives, [id number] rosalie - Dialysis rosalie - Uremia rosalie - Hemodialysis, Care After rosalie - Hemodialysis, Care After, [id number] [facility] Forms: - Medication Reconciliation Form [facility] - Thank You Letter [facility] - Antibiotic Education [facility] - Prescription Opioid Use [facility] Prescriptions: - Benadryl 25 mg Oral Capsule - take 1 capsule by ORAL route every 6 hours As needed; 30 tablet; Refills: 0, [facility] Product Selection Permitted - Pepcid 20 mg Oral Tablet - take 1 tablet by ORAL route every 12 hours for 10 days; 20 tablet; Refills: 0, [facility] Product Selection Permitted - Prednisone 20 mg Oral Tablet - take 2 tablets by ORAL route once daily for 5 days; 10 tablet; Refills: 0, [facility] Product Selection Permitted Signatures: Dispatcher [employer] Prosper Sharpe MD MD cha Calcote, Vanessa RN RN vc1 Lisa Carrera RN RN ha1
--- NOTE | 2022-10-15 23:49 | ER ---
Nurse's Notes [facility] Name: Loulou Treviño Age: 57 yrs Sex: Female : 1965 Arrival Date: 10/15/2022 Time: 21:41 Bed 16 Private MD: Diagnosis: Urticaria, unspecified;Rash and other nonspecific skin eruption;End stage renal disease-on hd Presentation: 10/15 21:45 Chief complaint: Patient states: "I have a rash around my vagina area and it itches vc1 really bad and now it has spread all over my body.". Coronavirus screen: Vaccine status: Patient reports receiving the 2nd dose of the covid vaccine. one booster; moderna. Ebola Screen: No symptoms or risks identified at this time. Onset: The symptoms/episode began/occurred gradually. Anaphylaxis evaluation, no signs or symptoms of anaphylaxis were noted. Initial Sepsis Screen: Does the patient meet any 2 criteria?. Initial Sepsis Screen: Does the patient have a suspected source of infection? No. Patient's initial sepsis screen is negative. Risk Assessment: Do you want to hurt yourself or someone else? Patient reports no desire to harm self or others. Onset of symptoms was October 15, 2022. 21:45 Method Of Arrival: Ambulatory vc1 21:45 Acuity: TOPHER 4 vc1 Historical: - Allergies: 21:49 No Known Allergies; vc1 - PMHx: 21:49 Hypertensive disorder; Dialysis; Kidney disease; vc1 - PSHx: 21:49 Tumor removal stomach; dialysis port; Liver transplant; vc1 - Immunization history:: Client reports receiving the 2nd dose of the Covid vaccine. - Social history:: Smoking status: Patient denies any tobacco usage or history of. Screenin:50 Abuse screen: Denies threats or abuse. Nutritional screening: No deficits noted. vc1 Tuberculosis screening: No symptoms or risk factors identified. Assessment: 21:50 General: Appears uncomfortable, Behavior is cooperative, anxious. Pain: Complains of ha1 pain in generalized. Neuro: Level of Consciousness is awake, alert, obeys commands, Oriented to person, place, time, situation. Respiratory: Airway is patent Trachea midline Respiratory effort is even, unlabored, Respiratory pattern is regular, symmetrical, Breath sounds are clear bilaterally. GI: Abdomen is flat, non-distended. : Reports vaginal itching. Derm: Rash noted that is itchy, red. 21:50 Musculoskeletal: Circulation, motion, and sensation intact. Range of motion: intact in ha1 all extremities. 21:51 Pain: Complains of pain in "All over". Respiratory: Airway is patent Respiratory effort vc1 is even, unlabored. Derm: Rash noted that is itchy, red. 23:00 Reassessment: Patient is alert, oriented x 3, equal unlabored respirations, skin ha1 warm/dry/pink. Patient states symptoms have improved. Vital Signs: 21:45 BP 101 / 76; Pulse 105; Resp 18; Temp 98.8; Pulse Ox 99% ; vc1 21:45 Weight 51.71 kg; Height 5 ft. 3 in. (160.02 cm); Pain 9/10; bb 21:58 Weight 63.5 kg; bb 21:58 Body Mass Index 24.80 (63.50 kg, 160.02 cm) ED Course: 21:41 Patient arrived in ED. [id number] 21:49 Triage completed. vc1 21:50 Arm band placed on right wrist. vc1 21:57 Prosper Ohara MD is Attending Physician. rosalie 22:02 Lisa Carrera RN is Primary Nurse. ha1 22:36 Initial lab(s) drawn, by ED staff, sent to lab. Missed attempt(s): 20 gauge in left bb antecubital area. Bleeding controlled, band aid applied, catheter tip intact. Inserted saline lock: 20 gauge in left antecubital area, using aseptic technique. Blood collected. 01 00:45 No provider procedures requiring assistance completed. IV discontinued, intact, vc1 bleeding controlled, No redness/swelling at site. Pressure dressing applied. Administered Medications: 10/15 22:03 Drug: predniSONE 40 mg Route: PO; ha1 22:35 Drug: Benadryl (diphenhydrAMINE) 50 mg Route: IVP; Site: left antecubital; ha1 22:40 Drug: Pepcid (famotidine) 40 mg Route: IVP; Site: left antecubital; ha1 23:04 Drug: SOLU-Medrol (methylPrednisoLONE) 125 mg Route: IVP; Site: left jugular; ha1 Medication: 21:51 VIS not applicable for this client. vc1 Outcome: 23:48 Discharge ordered by MD. wiggins 10/16 00:45 Discharged to home ambulatory. vc1 Condition: good Discharge instructions given to patient, Instructed on discharge instructions, follow up and referral plans. medication usage, Demonstrated understanding of instructions, follow-up care, medications, Prescriptions given X 3. 00:45 Patient left the ED. vc1 Signatures: Prosper Ohara MD MD cha Ballard, Brenda RN RN bb iNcole Godoy [id number] Tiara Chris RN RN vc1 Lisa Carrera RN RN ha1 Corrections: (The following items were deleted from the chart) 10/15 21:58 21:45 4.99 kg; Height 5 ft. 3 in.; BMI: 1.95; Pain 06/23; vc1 alice
[2022-10-16 01:13] VITALS: BP 101/76; TEMP 98.8; O2SAT 99
== END 2022-10-16 00:45 | disposition home or self-care (01) ==
LOC: ER 21:39
DX: L50.9 Urticaria, unspecified (principal); I12.0 Hypertensive chronic kidney disease with stage 5 chronic kidney disease or end stage renal disease; N18.6 End stage renal disease; Z99.2 Dependence on renal dialysis; Z94.4 Liver transplant status
CPT/HCPCS: 85025; 36415; 80053; J1200; J7512; J2930; 99284